=== PATIENT | male | born 1950 | race Caucasian/White ===

== ENCOUNTER 2024-05-16 11:40 | Outpatient (CLI) | payer MEDICARE, SELFPAY | END 2024-05-16 11:41 | disposition home or self-care (01) | PROVIDERS: Visit Provider Family Medicine | DX: D64.9 Anemia, unspecified (principal); E78.00 Pure hypercholesterolemia, unspecified; G62.9 Polyneuropathy, unspecified; I10 Essential (primary) hypertension; N40.1 Benign prostatic hyperplasia with lower urinary tract symptoms; R35.1 Nocturia; R79.89 Other specified abnormal findings of blood chemistry; E11.9 Type 2 diabetes mellitus without complications; R06.09 Other forms of dyspnea | CPT/HCPCS: 80053; 80061; 82043; 82570; 82607; 82728; 83540; 83550; 83880; 84270; 84402; 84403; G0103 ==

== ENCOUNTER 2024-05-16 13:35 | Emergency (ER) | payer MEDICARE, SELFPAY ==
[2024-05-16 13:37] VITALS: BP 123/67; PULSE 65; RESP 18; TEMP 35.9; O2SAT 95; BMI 25.8
--- NOTE | 2024-05-16 13:55 | ED.GENADULT ---
HPI - General Adult General Date Seen: 05/16/24 Chief complaint: Syncope/Fainted Stated complaint: Syncope Time Seen by Provider: 05/16/24 13:55 History of Present Illness HPI narrative: This is a pleasant 73-year-old gentleman brought to the ER today by EMS from the [facility]. A nurse from [facility] called when the patient was on the way. He had presented to the [facility] today to establish primary care (previously had lived in [facility] and had been in [place] over the winter. Now living in [place]). He had his 1st visit today and was getting some labs drawn. Apparently he was a difficult phlebotomy patient. After labs were drawn he had an episode of lightheadedness and then fainted. He apparently had some convulsion like activity. He was incontinent of urine. Upon awakening he seemed to either have a left facial tic or left facial droop. Clinic staff were concerned that he may have had a stroke so called 911. History from EMS is that by the time they arrived the patient has been alert and oriented. No focal deficits. [place] stroke scale is 0. Blood pressure and pulse have been normal. They were not able to establish an IV. He has no complaints. The patient was incontinent of urine at the clinic and wants to call his to ask her to bring him a pair of dry pants. History from the patient is that he has a history of anemia with a baseline hemoglobin 9-11. He has apparently had extensive workups including bone marrow biopsies and is not that thought to have any cancer or leukemia. Cause of his anemia is unclear. He has occasionally required transfusions in the past. He has a history of high blood pressure. He had an adverse reaction to some blood pressure meds last year (apparently 1 of them had a sulfa moiety in it and triggered a bad reaction requiring hospitalization and caused acute renal failure), he does have history of chronic renal disease and says his normal creatinine is around 1.85. During his episode of acute renal failure last year creatinine peaked around 4. He has had an extensive cardiac workup in the past and currently has an implanted residential monitor. He has never been found to have any arrhythmias or AFib. He has had episodes where he has had brief episodes of aphasia in the past that are not thought to be strokes or TIAs, based on workup with Neurology. He was feeling normally this morning. He had a small smoothly for breakfast but nothing else to eat or drink today. He went to the clinic this afternoon for his 1st check. He recalls starting to get lightheaded during the lab draw. He says he can not recall the phlebotomy has had a hard time getting his vein and he had to be poked to 6 times. He then recalls waking up on the floor. He has no other complaints. No headache. No chest pain. No palpitations. He was nauseous but is no longer nauseous. No abdominal pain. No back pain. 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 Labs drawn in clinic today included: WBC 7.5 Hemoglobin 10.9 Platelet 206 CMP vitamin B12, PSA, and terminal proBNP, testosterone levels are all pending. Glucose was 135. Related Data Home Medications ?Medication ?Instructions ?Recorded ?Confirmed Lactobacillus acidophilus 10 mg PO QDAY 04/06/24 05/16/24 amlodipine 10 mg tablet 10 mg PO DAILY 04/06/24 05/16/24 azelastine 137 mcg (0.1 %) nasal 2 spray intranasal QAM 04/06/24 05/16/24 spray coenzyme Q10 10 mg capsule 10 mg PO ONCE 04/06/24 05/16/24 cyanocobalamin (vitamin B-12) mcg PO 04/06/24 05/16/24 1,500 mcg chewable tablet fluticasone propionate 50 2 spray intranasal QPM 04/06/24 05/16/24 mcg/actuation nasal spray,suspension pantoprazole 40 mg tablet,delayed 40 mg PO DAILY 04/06/24 05/16/24 release rosuvastatin 10 mg tablet 10 mg PO DAILY 04/06/24 05/16/24 semaglutide 1 mg/dose (4 mg/3 mL) mg subcut 04/06/24 05/16/24 subcutaneous pen injector (Ozempic) sodium bicarbonate 650 mg tablet 650 mg PO QDAY PRN 04/06/24 05/16/24 tamsulosin 0.4 mg capsule 0.4 mg PO QDAY 04/06/24 05/16/24 lisinopril 10 mg tablet 10 mg PO QAM 05/16/24 05/16/24 Previous Rx's ?Medication ?Instructions ?Recorded amoxicillin 875 mg tablet 875 mg PO BID #20 tabs 05/16/24 Allergies Allergy/AdvReac Type Severity Reaction Status Date / Time Sulfa (Sulfonamide Allergy Severe Verified 05/16/24 11:15 Antibiotics) cat dander Allergy Mild Verified 05/16/24 11:15 [facility] Medical History (Updated 05/16/24 @ 12:11 by Mega Allen MD) Diabetes mellitus ?E11.9 - Type 2 diabetes mellitus without complications (ICD-10) Systolic murmur ?R01.1 - Cardiac murmur, unspecified (ICD-10) BPH associated with nocturia ?N40.1 - Benign prostatic hyperplasia with lower urinary tract symptoms (ICD-10) ?R35.1 - Nocturia (ICD-10) Low testosterone in male ?R79.89 - Other specified abnormal findings of blood chemistry (ICD-10) Neuropathy ?G62.9 - Polyneuropathy, unspecified (ICD-10) GERD (gastroesophageal reflux disease) ?K21.9 - Gastro-esophageal reflux disease without esophagitis (ICD-10) Hypercholesteremia ?E78.00 - Pure hypercholesterolemia, unspecified (ICD-10) HTN (hypertension) ?I10 - Essential (primary) hypertension (ICD-10) Anemia ?D64.9 - Anemia, unspecified (ICD-10) Social History Little interest or pleasure in doing things: not at all Feeling down, depressed, or hopeless: not at all Exam Narrative: Exam Narrative: Constitutional: Appears well-developed and well-nourished. Alert. Conversant. Non toxic. He had been incontinent of urine during the episode but declines offer to change into dry pants. He is waiting for his to arrive. HENT: Head: Atraumatic. Nose: Nose normal. Mouth/Throat: Oral mucosa is clear and moist. no trismus. Pharynx normal. Tonsils symmetric. No tonsillar enlargement, erythema, or exudate. Eyes: Conjunctivae normal. EOM normal. Pupils equal, round, and reactive to light. No scleral icterus. Neck: Normal range of motion. Neck supple. No tracheal deviation present. Cardiovascular: Normal rate, regular rhythm. No gallop. No friction rub. No murmur heard. Symmetric radial artery pulses Pulmonary/Chest: Effort normal. No stridor. No respiratory distress. No wheezes. No rales. No rhonchi . No tenderness. Abdominal: Soft. Bowel sounds normal. No distension. No mass. No tenderness. No rebound. No guarding. No CVA tenderness. Musculoskeletal: RUE: Normal range of motion. No tenderness. No deformity LUE: Normal range of motion. No tenderness. No deformity RLE: Normal range of motion. No edema. No tenderness. No deformity LLE: Normal range of motion. No edema. No tenderness. No deformity Lymph: No cervical adenopathy. Neurological: Mental status normal. Attention normal. Alert and oriented x3. GCS 15. Memory normal. Speech fluent. Cognition normal. Cranial Nerves intact II-XII except I did not formally test gag or visual acuity. Occasional left facial tic but I do not see any facial asymmetry. No droop. EOMI. Palate elevates symmetrically and tongue protrudes in the midline. Strength: 5/5 trapezius on the right and left 5/5 deltoid on the right and left 5/5 biceps on the right and left 5/5 triceps on the right and left 5/5 mechanical press operator on the right and left 5/5 thumb opposition on the right and left 5/5 finger abduction on the right and left 5/5 hip flexors (L3) on the right and left 5/5 quadriceps (L4) on the right and left 5/5 tibialis anterior on the right and left 5/5 EHL (L5) on the right and left 5/5 gastrocnemius (S1) on the right and left 5/5 hamstring on the right and left Sensation intact to light touch in both upper extremities (C4-T1) Sensation intact to light touch in Both lower extremities (L4-S1). Finger to nose and coordination normal. Gait normal. Skin: Skin is warm and dry. No rash noted. No pallor. Normal capillary refill. Psychiatric: Normal mood. Normal affect. Polite. He is a detailed historian. Const: Vital Signs, click to edit/add: Vital Signs - 24 hr 05/16/24 13:37 Temperature 96.6 F L Pulse Rate [Right Pulse Oximeter] 65 Respiratory Rate 18 Blood Pressure [Ri ght Upper Arm] 123/67 Pulse Oximetry 95 Oxygen Delivery Me thod Room Air Course Vital Signs Vital signs: Initial Vital Signs Temperature 96.6 F L 05/16/24 13:37 Temperature Source Temporal Artery Scan 05/16/24 13:37 Pulse Rate 65 05/16/24 13:37 Pulse Rhythm Regular 05/16/24 13:37 Respiratory Rate 18 05/16/24 13:37 Blood Pressure 123/67 05/16/24 13:37 Blood Pressure Mean 85 05/16/24 13:37 Blood Pressure Position Supine 05/16/24 13:37 Pulse Oximetry 95 05/16/24 13:37 Oxygen Delivery Method Room Air 05/16/24 13:37 Vital Signs Temperature 96.6 F L 05/16/24 13:37 Pulse Rate 65 05/16/24 13:37 Respiratory Rate 18 05/16/24 13:37 Blood Pressure 123/67 05/16/24 13:37 Pulse Oximetry 95 05/16/24 13:37 Oxygen Delivery Method Room Air 05/16/24 13:37 Temperature 96.6 F L 05/16/24 13:37 Pulse Rate 65 05/16/24 13:37 Respiratory Rate 18 05/16/24 13:37 Blood Pressure 123/67 05/16/24 13:37 Pulse Oximetry 95 05/16/24 13:37 Oxygen Delivery Method Room Air 05/16/24 13:37 Medical Decision Making MDM Narrative Medical decision making narrative: This patient presents for evaluation of a syncopal event that occurred right after he had a difficult phlebotomy and lab draw at the [facility].. A broad differential was considered. History provided suggests a benign cause of syncope. He actually had a similar episode of syncope about 4 months ago during a phlebotomy at a clinic in [place]. There was some concern by the clinic providers that he may have had a left facial droop . However, it turns out he has a chronic left facial tic. It does not sound like this was a true acute focal deficit. He had no focal neurologic deficits per EMS or here in the ER. No murmurs . Initial ECG shows normal sinus rhythm and no dysrhythmogenic abnormality such as WPW, prolonged QT, Brugada syndrome, and no ischemia. No symptoms/findings concerning for cardiac ischemia or ACS . No headache or other neurologic symptoms to suggest subarachnoid , stroke . He apparently had some short-lived convulsive episodes witnessed by staff but suspect this was convulsive syncope rather than seizure activity . no reported postictal phase. Patient has had a recent brain MRI in the past couple of years that showed no strokes or light mass lesions. night monitor while the patient here in the ER showed no dysrhythmia or ectopy. A broad differential diagnosis was considered including SVT, Atrial fibrillation, ventricular arrhythmia, drugs/medications, medication side effect, heart disease, PE, among others. Labs from clinic are pending. He does have some chronic renal disease. His doctor will follow up on his creatinine outpatient. He also has chronic anemia. Hemoglobin is 10.9 today which is in the upper and of his typical range (9-11). No symptoms of recent bleeding. Blood pressure normal. The workup and exam here in ED shows low risk for dangerous cause of the patient's syncope, and no risks factors to warrant admission. Clinical judgement suggests that supportive outpatient management is indicated. Recommend follow up with his new primary care provider in [place]. Questions answered and return precautions given Lab Data Labs: Lab Results 05/16/24 Range/Units 14:01 POC Troponin I 0.00 L (0.01-0.04) ng/ml ECG Data Attestation: I personally reviewed and interpreted this ECG as follows: Interpretation: Normal sinus rhythm. Computer indicates that this is a ?undetermined rhythm?, however he does have P waves visible in leads V1 and V2 indicating this is sinus rhythm. Rate: 61 DC: 200 by my count QRS axis: [] ST segment/T wave: No ST segment elevation or depression. Nonspecific T-wave flattening lead AVF, V4, V5, V6, V3. QTc: 400 Discharge Plan Discharge Prescriptions: No Action lisinopril 10 mg tablet 10 mg PO QAM amoxicillin 875 mg tablet 875 mg PO BID Qty: 20 0RF azelastine 137 mcg (0.1 %) aerosol,spray 2 spray intranasal QAM amlodipine 10 mg tablet 10 mg PO DAILY coenzyme Q10 10 mg capsule 10 mg PO ONCE cyanocobalamin (vitamin B-12) 1,500 mcg tablet,chewable PO fluticasone propionate 50 mcg/actuation spray,suspension 2 spray intranasal QPM Lactobacillus acidophilus Capsule 10 mg PO QDAY pantoprazole 40 mg tablet,delayed release (DR/EC) 40 mg PO DAILY rosuvastatin 10 mg tablet 10 mg PO DAILY Ozempic 1 mg/dose (4 mg/3 mL) pen injector subcut sodium bicarbonate 650 mg tablet 650 mg PO QDAY PRN tamsulosin 0.4 mg capsule 0.4 mg PO QDAY Follow Up/Referrals: Provider,Not a Local [Staff Physician] -
[2024-05-16] MEDS: 0.9 % SODIUM CHLORIDE 1000 ml 1,000 ML IV (14:45)
== END 2024-05-16 16:20 | disposition home or self-care (01) ==
LOC: ED 14:03
PROVIDERS: Emergency Provider Emergency Medicine; PCP Family Medicine
DX: R55 Syncope and collapse (principal)
CPT/HCPCS: 36415; 80048; 80053; 80061; 82607; 82728; 83540; 83550; 83880; 84443; 84484; 93005; 99283; G0103; J7030

== ENCOUNTER 2024-05-17 10:56 | Outpatient (CLI) | payer MEDICARE, SELFPAY | END 2024-05-17 10:57 | disposition home or self-care (01) | LOC: NFLDREF 05-19 10:43 | PROVIDERS: PCP Family Medicine; Referring Provider Family Medicine; Visit Provider Family Medicine | DX: E11.9 Type 2 diabetes mellitus without complications (principal) | CPT/HCPCS: 82043; 82570 ==

== ENCOUNTER 2024-05-25 07:49 | Outpatient (CLI) | payer MEDICARE, SELFPAY ==
--- NOTE | 2024-05-25 09:15 | CRLHL7_ITS ---
For Patients: As a result of the Cures Act, medical imaging exams and procedure reports are released immediately into your electronic medical record. You may view this report before your referring provider. If you have questions, please contact your health care provider. Indication: Lymphadenopathy Technique: Grayscale and color Doppler ultrasound of the left side of the neck performed. Comparison: None Findings: Normal left cervical lymph nodes are present with normal central fatty dwayne and normal internal vascularity. No cortical thickening. Lymph nodes measuring 1.2 x 0.5 x 1.2 cm and 1.2 x 0.3 x 0.8 cm. Impression: Normal left cervical lymph nodes. No suspicious findings. Dictated by Orion Arceo MD @ 05/26/2024 7:19:30 AM (Electronically Signed)
== END 2024-05-25 07:50 | disposition home or self-care (01) ==
PROVIDERS: PCP Family Medicine; Visit Provider Family Medicine
DX: R06.09 Other forms of dyspnea (principal); I51.7 Cardiomegaly; I35.0 Nonrheumatic aortic (valve) stenosis; R01.1 Cardiac murmur, unspecified; R59.1 Generalized enlarged lymph nodes
CPT/HCPCS: 76536; 93306

== ENCOUNTER 2025-04-03 08:13 | Outpatient (CLI) | payer MEDICARE, SELFPAY | END 2025-04-03 08:14 | disposition home or self-care (01) | LOC: WOUND 08:18 | PROVIDERS: PCP Family Medicine; Visit Provider Physician Assistant | DX: T81.31XA Disruption of external operation (surgical) wound, not elsewhere classified, initial encounter (principal); E11.9 Type 2 diabetes mellitus without complications | CPT/HCPCS: 1123F; 97597; 99203; G0463 ==

== ENCOUNTER 2025-04-17 09:58 | Outpatient (CLI) | payer MEDICARE, SELFPAY | END 2025-04-17 09:59 | disposition home or self-care (01) | LOC: WOUND 09:58 | PROVIDERS: PCP Family Medicine; Visit Provider Physician Assistant | DX: I73.9 Peripheral vascular disease, unspecified (principal); L97.312 Non-pressure chronic ulcer of right ankle with fat layer exposed; E11.9 Type 2 diabetes mellitus without complications | CPT/HCPCS: 97597 ==

== ENCOUNTER 2025-04-22 08:32 | Outpatient (CLI) | payer MEDICARE, SELFPAY ==
--- OUTSIDE RECORDS SUMMARY | 2025-03-31 | XMS_ITS | Encounter Summary ---
Author Organization [facility] Address [address] [place] [address] Care Team Providers Care Supervisor Mechanic Boilermaking Name Role Phone Alex Rao MD Primary Care Provider [phone] Alex Rao MD Unavailable [phone] Alex Rao MD Unavailable [phone] Russell Agosto MD Unavailable [phone] Doris Chaney [facility] Unavailable Canelo Kelley MD Unavailable Reason for Visit * CV Testing (Routine) - Closed Specialty Diagnoses / Procedures Referred By Contac t Referred To Contact Diagnoses Cryptogenic stroke (H) Procedures Cardiac Device Check - Remote (Standing ORD 5 count) Magdalena Fry MD Phone: tel: fax: Referral ID Status Reason Start Date Expiration Date Visits Re quested Visits Authorized [id number] Closed 12/21/2023 12/20/2024 5 5 Encounter Details Date Type Department Care Team (Latest Contact Info) Description 03/31/2025 Ancillary Procedure [facility] Heart [address] [place] [address] Magdalena Fry MD [address] [place] [address] Cryptogenic stroke (H) Social History Tobacco [...] AM CDT Legal Sex Male 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 Gender Identity Male 11/22/2018 10:40 AM PRODUCTION MAINTENANCE MECHANIC Sexual Orientation Straight 11/22/2018 10 :40 AM PRODUCTION MAINTENANCE MECHANIC Occupation Industry Job Start Date Job 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- [employer] Not on file Not on file Not on file documented as of this encounter Plan of Treatment Upcoming Encounters Date Type Department Care Team (Late st Contact Info) Description 06/30/2025 Ancillary Procedure [address] [address] Magdalena Fry MD [address] [place] [address] [id number] 10/02/2025 Ancillary Procedure [address] [phone] Magdalena Fry MD [address] [place] [address] documented as of this encounter Procedures Procedure Name Priority Date/Time Associated Diagnosis Comments REMOTE IMPLANTABLE LOOP RECORDER INTERROGATION 30 DAY Routine 03/31/2025 10:38 AM CDT Cryptogenic stroke (H) documented in this encounter Results * REMOTE IMPLANTABLE LOOP RECORDER INTERROGATION 30 DAY (03/31/2025 10:38 AM CDT) Date Time Interrogation Session [id number] [employer] Implantable Pulse Generator Cartridge Gauger Medtronic [employer] Implantable Pulse Generator Model LNQ22 LINQ II [employer] Implantable Pulse Generator Serial Number [id number] [employer] Type Interrogation Session Remote [facility] Clinic Name [facility] [employer] Implantable Pulse Generator Type Implantable Diagnostic Monitor [employer] Implantable Pulse Generator Implant Date 20220825 [employer] Battery Date Time of Measurements [employer] Atrial Tachy Statistic AT/AF [place] Percent 0 % [employer] Episode Statistic Recent [...] [employer]IC Episode Statistic Recent Date Time End [id number] [employer] Episode Statistic Recent Date Time Start [employer] Episode Statistic Recent Date Time End [id number] [employer] Episode Statistic Recent Date Time Start [employer] Episode Statistic Recent Date Time End [id number] [employer] Episode Statistic Recent Date Time Start [employer] Episode Statistic Recent Date Time End [id number] [employer] Anatomical Region Laterality Modality Other 03/31/2025 12:0 8 AM CDT Narrative 04/13/2025 10:45 PM CDT Remote loop recorder transmission received and reviewed. Device transmission sent per MD orders. Device: Medtronic LNQ22 LINQ II Normal Device Function Presenting EGM: NSR 68 bpm Patient Activated Episodes: 0 Tachy Episodes: 0 Pause Episodes: 0 Thomas Episodes: 0 AF Episodes: 0 AT/AF [place]: 0% Anticoagulant: None PVCs (% beats): 0% [...] documented as of this encounter Care Teams Supervisor Mechanic Boilermaking Relationship Specialty Start Date End Date Alex Rao MD PCP - General Internal Medicine 09/19/19 Alex Rao MD [address] [address] Assigned PCP 03/21/21 Alex Rao MD [address] [facility] [place] [address] Referring Physician Internal Medicine 04/02/22 Russell Agosto MD [address] [place] [address] [address] [place], [place] [address] Neurology 04/02/22 Doris Chaney, [facility] [address] [address] Pharmacist Pharmacist 07/21/22 [place] [address] [phone] Nephrology 05/14/23 documented as of this encounter
--- OUTSIDE RECORDS SUMMARY | 2025-04-25 01:38 | XMS_ITS | Encounter Summary ---
Author Organization [facility] Address [address] [place] [address] Care Team Providers Care Laborer Plumbing Name Role Phone Alex Rao MD Primary Care Provider [phone] Sharri Hdez MD Unavailable [phone] Alex Rao MD Unavailable [phone] Alex Rao MD Unavailable [phone] Russell Agosto MD Unavailable [phone] Magdalena Fry MD Unavailable Doris Chaney [facility] Unavailable [phone] Doris Chaney [facility] Unavailable [phone] Canelo Kelley MD Unavailable Encounter Details Date Type Department Care Team (Late st Contact Info) Description 09/08/2023 [facility] Medical Advice [facility] [address] [place] [address] Emilee Linares Social History Tobacco [...] AM CDT Legal Sex Male 4:10 AM CUSTOMER SUPPORT MANAGER Gender Identity Male 11/22/2018 10:40 AM CUSTOMER SUPPORT MANAGER Sexual Orientation Straight 11/22/2018 10 :40 AM CUSTOMER SUPPORT MANAGER Occupation Industry Job Start Date Job 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- [employer] Not on file Not on file Not on file documented as of this encounter Plan of Treatment Upcoming Encounters Date Type Department Care Team (Late st Contact Info) Description 06/30/2025 Ancillary Procedure [address] [phone] Magdalena rFy MD [address] [place] [address] 223585 10/02/2025 Ancillary Procedure [address] [phone] Magdalena Fry MD [address] [place] [address] [phone] documented as of this encounter Visit Diagnoses Not on filedocumented in this encounter Additional Health Concerns Assessment Noted Time PHQ-9 Depression Total Score: 9 06/10/20 22 11:44 AM CDT documented as of this encounter Care Teams Laborer Plumbing Relationship Specialty Start Date End Date Alex Rao MD PCP - General Internal Medicine 09/19/19 Sharri Hdez MD [address] [place] [address] 101 [place] [address] Assigned Endocrinology Provider 12/16/20 03/16/24 Alex Rao MD 6320 [place] [address] Assigned PCP 03/21/21 Alex Rao MD [address] [facility] [place] [address] Referring Physician Internal Medicine 04/02/22 Russell Agosto MD [address] 877345 Neurology 04/02/22 Magdalena Fry MD [address] 872185 Assigned Heart and Vascular Provider 04/26/22 02/15/24 Doris Chaney, [facility] [address] [phone] Pharmacist Pharmacist 07/21/22 [facility] [address] [phone] Assigned MTM Pharmacist 07/26/2202/14 [place] [address] [phone] Nephrology 05/14/23 documented as of this encounter
--- OUTSIDE RECORDS SUMMARY | 2025-04-25 01:38 | XMS_ITS | Encounter Summary ---
Author Organization [place] Address [address] [place] [address]. [place] [address] Care Team Providers Care Utility Inspector Name Role Phone Alex Rao MD Primary Care Provider [phone] Alex Rao MD Unavailable [phone] Alex Rao MD Unavailable [phone] Russell Agosto MD Unavailable [phone] Doris Chaney [facility] Unavailable Canelo Kelley MD Unavailable Encounter Details Date Type Department Care Team (Late st Contact Info) Description 03/22/2024 [facility] [place] Medical Advice [facility] [address] [address] Emilee Linares Social History Tobacco [...] AM CDT Legal Sex Male 4:10 AM TECHNICAL SPECIALIST CYTOGENETICS Gender Identity Male 11/22/2018 10:40 AM TECHNICAL SPECIALIST CYTOGENETICS Sexual Orientation Straight 11/22/2018 10 :40 AM TECHNICAL SPECIALIST CYTOGENETICS Occupation Industry Job Start Date Job 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- [employer] Not on file Not on file Not on file documented as of this encounter Plan of Treatment Upcoming Encounters Date Type Department Care Team (Late st Contact Info) Description 06/30/2025 Ancillary Procedure [address] [phone] Magdalena Fry MD [address] [place] [address] [phone] 10/02/2025 Ancillary Procedure [address] [phone] Magdalena Fry MD [address] [place] [address] [phone] documented as of this encounter Visit Diagnoses Not on filedocumented in this encounter Additional Health Concerns Assessment Noted Time PHQ-9 Depression Total Score: 9 06/10/20 22 11:44 AM CDT documented as of this encounter Care Teams Utility Inspector Relationship Specialty Start Date End Date Alex Rao MD PCP - General Internal Medicine 09/19/19 Alex Rao MD [address] [place] [address] Assigned PCP 03/21/21 Alex Rao MD [address] [place] [address] Referring Physician Internal Medicine 04/02/22 Russell Agosto MD [address] [place] [address] 262185 Neurology 04/02/22 Doris Chaney, [facility] [address] [address] Pharmacist Pharmacist 07/21/22 [place] [address] [phone] Nephrology 05/14/23 documented as of this encounter
--- OUTSIDE RECORDS SUMMARY | 2025-04-25 01:38 | XMS_ITS | Encounter Summary ---
Author Organization [place] Address [address] [place] [address] Care Team Providers Care Dryer Feeder Name Role Phone Alex Rao MD Primary Care Provider [phone] Sharri Hdez MD Unavailable [phone] Alex Rao MD Unavailable [phone] Alex Rao MD Unavailable [phone] Russell Agosto MD Unavailable [phone] Magdalena Fry MD Unavailable Doris Chaney [facility] Unavailable [phone] Doris Chaney [facility] Unavailable [phone] Canelo Kelley MD Unavailable Encounter Details Date Type Department Care Team (Late st Contact Info) Description 06/05/2023 [facility] [place] Medical Advice [facility] [address] 3rd [place] [address] Emilee Linares Social History Tobacco [...] AM CDT Legal Sex Male 4:10 AM PODIATRIC PHYSICIAN Gender Identity Male 11/22/2018 10:40 AM PODIATRIC PHYSICIAN Sexual Orientation Straight 11/22/2018 10 :40 AM PODIATRIC PHYSICIAN Occupation Industry Job Start Date Job End [...] st Contact Info) Description 06/30/2025 Ancillary Procedure [address] [address] Magdalena Fry MD [address] [place] [address] [phone] 10/02/2025 Ancillary Procedure [address] [address] Magdalena Fry MD [address] [place] [address] [phone] documented as of this encounter Visit Diagnoses Not on filedocumented in this encounter Additional Health Concerns Assessment Noted Time PHQ-9 Depression Total Score: 9 06/10/20 22 11:44 AM CDT documented as of this encounter Care Teams Dryer Feeder Relationship Specialty Start Date End Date Alex Rao MD PCP - General Internal Medicine 09/19/19 Sharri Hdez MD [address] [place] [address] Assigned Endocrinology Provider 12/16/20 03/16/24 Alex Rao MD [address] [place] [address] Assigned PCP 03/21/21 Alex Rao MD [address] [place] [address] Referring Physician Internal Medicine 04/02/22 Russell Agosto MD [address] [address] Neurology 04/02/22 Magdalena Fry MD [address] [address] Assigned Heart and Vascular Provider 04/26/22 02/15/24 Doris Chaney [facility] [address] [phone] Pharmacist Pharmacist 07/21/22 Doris Chaney [facility] [address] [phone] Assigned MTM Pharmacist 07/26/2202/14 [place] [address] [phone] Nephrology 05/14/23 documented as of this encounter
--- OUTSIDE RECORDS SUMMARY | 2025-04-25 01:38 | XMS_ITS | Encounter Summary ---
Author Organization [place] Address [address] [place] [address] Care Team Providers Care Auto Overhauler Name Role Phone Antonio Celeste MD Primary Care Provider U nealsharon Bill Bowens PA-C Primary Care Provider + Bill Bowens PA-C Unavailable [phone] Bill Bowens PA-C Unavailable [phone] Alex Rao MD Primary Care Provider [phone] Alex Rao MD Unavailable [phone] Beni Puga MD PhD Unavailable Alex Rao MD Unavailable [phone] Nate Leong MD Unavailable [phone] Sharri Hdez MD Unavailable [phone] Alex Rao MD Unavailable [phone] Alex Rao MD Unavailable [phone] Russell Agosto MD Unavailable [phone] Magdalena Fry MD Unavailable Doris Chaney [facility] Unavailable [phone] Doris Chaney [facility] Unavailable [phone] Canelo Kelley MD Unavailable Encounter Details Date Type Department Care Team ([facility] Contact Info) Description 10/02/2005 [facility] Medical Advice [facility] [address] [place] [address] Pillo Kaplan MD [address] , [id number] [place] [address] Social History Tobacco Use Types Packs/Day Years Used Date Smoking Tobacco: Former Cigarettes Q uit: 02/21/1974 Alcohol Use Standard Drinks/Week Comments Yes 0 (1 standard drink = 0.6 oz pur e alcohol) occasional Sex and Gender Information Value Date Recorded Sex Assigned at Male 07/18/2019 7:43 AM CDT Legal Sex Male 4:10 AM PAYROLL AND BENEFITS ANALYST Gender Identity Male 11/22/2018 10:40 AM PAYROLL AND BENEFITS ANALYST Sexual Orientation Straight 11/22/2018 10 :40 AM PAYROLL AND BENEFITS ANALYST Occupation Industry Job Start Date Job 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- [employer] Not on file Not on file Not on file documented as of this encounter Plan of Treatment Upcoming Encounters Date Type Department Care Team (Late Contact Info) Description 06/30/2025 Ancillary Procedure [address] [address] Magdalena Fry MD [address] [place] [address] [phone] 10/02/2025 Ancillary Procedure [address] [address] Magdalena Fry MD [address] [place] [address] [phone] documented as of this encounter Visit Diagnoses Not on filedocumented in this encounter Care Teams Auto Overhauler Relationship Specialty Start Date End Date Antonio Celeste MD NO INFO AVAILABLE 08/25/2022 PCP - General 03/24/03 02/19/15 Bill Bowens PA-C NO INFO AVAILABLE 08/25/2022 PCP - General Physician [place] Room Hand 02/20/15 09/18/19 Bill Bowens PA-C [address] [address] PCP - Assigned PCP 01/14/15 12/28/18 Alex Rao MD [address] [address] PCP - General Internal Medicine 09/19/19 Bill Bowens PA-C [address] [address] Assigned PCP 01/14/15 12/03/19 Alex Rao MD [address] [place] [address] Assigned PCP 12/04/19 02/18/20 Beni Puga MD PhD [address] [place] [address] Assigned PCP 02/19/20 02/25/20 Alex Rao MD [address] [place] [address] Assigned PCP 02/26/20 03/20/21 Nate Leong MD [address] [place] [address] Assigned Surgical Provider 08/17/20 11/07/22 Sharri Hdez MD 420 [facility] [address] [place], [place] 446745 Assigned Endocrinology Provider 12/16/20 03/16/24 Alex Rao MD [address] [facility] [place] [place] 1907[address] Assigned PCP 03/21/21 Alex Rao MD [address] [facility] [place] [place] 6[address] Referring Physician Internal Medicine 04/02/22 Russell Agosto MD 420 [facility] [address] [place], [place] 3775[address] Neurology 04/02/22 Magdalena Fry MD 420 [facility] [address] [place], [place] 356905 Assigned Heart and Vascular Provider 04/26/22 02/15/24 Doris Chaney [facility] [address] [phone] Pharmacist Pharmacist 07/21/22 Doris Chaney [facility] [address] [phone] Assigned MTM Pharmacist 07/26/2202/14 [place] [address] [phone] Nephrology 05/14/23 documented as of this encounter
--- OUTSIDE RECORDS SUMMARY | 2025-04-25 01:38 | XMS_ITS | Encounter Summary ---
Author Organization [place] Address [address] [place] [address]. [place] [address] Care Team Providers Care Principal Bioinformatics Specialist Name Role Phone Alex Rao MD Primary Care Provider [phone] Alex Rao MD Unavailable [phone] Alex Rao MD Unavailable [phone] Russell Agosto MD Unavailable [phone] [facility] Unavailable [phone] Canelo Kelley MD Unavailable Encounter Details Date Type Department Care Team (Late st Contact Info) Description 06/22/2024 [facility] [place] Medical Advice [facility] [address] [address] Emilee Linares Social History Tobacco [...] AM CDT Legal Sex Male 4:10 AM DIRECT ENTRY MIDWIFE Gender Identity Male 11/22/2018 10:40 AM DIRECT ENTRY MIDWIFE Sexual Orientation Straight 11/22/2018 10 :40 AM DIRECT ENTRY MIDWIFE Occupation Industry Job Start Date Job 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- [employer] Not on file Not on file Not on file documented as of this encounter Plan of Treatment Upcoming Encounters Date Type Department Care Team (Late st Contact Info) Description 06/30/2025 Ancillary Procedure [address] [phone] Magdalena Fry MD [address] [place] [address] [phone] 10/02/2025 Ancillary Procedure [address] [phone] Magdalena Fry MD [address] [place] [address] [phone] documented as of this encounter Visit Diagnoses Not on filedocumented in this encounter Additional Health Concerns Assessment Noted Time PHQ-9 Depression Total Score: 9 06/10/20 22 11:44 AM CDT documented as of this encounter Care Teams Principal Bioinformatics Specialist Relationship Specialty Start Date End Date Alex Rao MD PCP - General Internal Medicine 09/19/19 Alex Rao MD [address] [place] [address] Assigned PCP 03/21/21 Alex Rao MD [address] [place] [address] Referring Physician Internal Medicine 04/02/22 Russell Agosto MD [address] [place] [address] 163745 Neurology 04/02/22 Doris Chaney, [facility] [address] [phone] Pharmacist Pharmacist 07/21/22 [place] [address] [phone] Nephrology 05/14/23 documented as of this encounter
--- OUTSIDE RECORDS SUMMARY | 2025-04-25 01:38 | XMS_ITS | Encounter Summary ---
Author Organization [place] Address [address] [place] [address] Care Team Providers Care Driver Salesman Name Role Phone Alex Rao MD Primary Care Provider [phone] Sharri Hdez MD Unavailable [phone] Alex Rao MD Unavailable [phone] Alex Rao MD Unavailable [phone] Russell Agosto MD Unavailable [phone] Magdalena Fry MD Unavailable Doris Chaney [facility] Unavailable Doris Chaney [facility] Unavailable Canelo Kelley MD Unavailable Reason for Visit * Reason Comments Medication Refill Encounter Details Date Type Department Care Team (Late st Contact Info) Description 12/20/[address] [address] Alex Rao MD [address] [place] [address] Medication Refill Social History Tobacco Use [...] AM CDT Legal Sex Male 4:10 AM TAKER AWAY Gender Identity Male 11/22/2018 10:40 AM TAKER AWAY Sexual Orientation Straight 11/22/2018 10 :40 AM TAKER AWAY Occupation Industry Job Start Date Job 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- [employer] Not on file Not on file Not on file documented as of this encounter Plan of Treatment Upcoming Encounters Date Type Department Care Team (Late st Contact Info) Description 06/30/2025 Ancillary Procedure [address] [address] Magdalena Fry MD [address] [place] [address] 10/02/2025 Ancillary Procedure [address] [address] Magdalena Fry MD [address] [place] [address] [phone] documented as of this encounter Visit Diagnoses Diagnosis Essential hypertension with goal blood pressure less than 140/90 documented in this encounter Additional Health Concerns Assessment Noted Time PHQ-9 Depression Total Score: 9 06/10/20 22 11:44 AM CDT documented as of this encounter Care Teams Driver Salesman Relationship Specialty Start Date End Date Alex Rao MD PCP - General Internal Medicine 09/19/19 Sharri Hdez MD [address] [place] [address] 566385 Assigned Endocrinology Provider 12/16/20 03/16/24 Alex Rao MD [address] [place] [address] Assigned PCP 03/21/21 Alex Rao MD [address] [place] [address] Referring Physician Internal Medicine 04/02/22 Russell Agosto MD [address] 081325 Neurology 04/02/22 Magdalena Fry MD [address] 970175 Assigned Heart and Vascular Provider 04/26/22 02/15/24 [facility] [address] [phone] Pharmacist Pharmacist 07/21/22 [facility] [address] [phone] Assigned MTM Pharmacist 07/26/2202/14 [place] [address] [phone] Nephrology 05/14/23 documented as of this encounter
--- OUTSIDE RECORDS SUMMARY | 2025-04-25 01:38 | XMS_ITS | Clinical Summary ---
Author Organization [place] Address [address] [place] [address] Care Team Providers Care Atomic Process Engineer Name Role Phone Luis Rao MD Primary Care Provider Luis Rao MD Unavailable [phone] Luis Rao MD Unavailable Russell Agosto MD Unavailable [phone] Doris Chaney [facility] Unavailable [phone] Canelo Kelley MD Unavailable Allergies Active Allergy Reactions Criticality Noted Date Comments Animal Dander Swelling,Difficulty breathing 04/18/2011 Cat Dander Swelling,Cough 04/18/2011 Cat and Dog dander Sucrose Low 12/10/2020 Patient states he experiences a dry, scratchy throat Sulfa Antibiotics Rash Medium 02/22/2004 Medications Continuous Blood Gluc Fisheries Technician (FREESTYLE CHERRY 14 DAY READER) DEVIIndications: Controlled [...] diabetes mellitus wit h hyperglycemia, unspecified whether parts counterman insulin use 02/13/2022 06/12/2022 Pain of right lower leg 05/15/202107/27 Retroperitoneal bleed 09/16/20192021 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/19/20 19 Overview (08/05/2019): Added automatically from request for surgery [id number] Testicular mass 08/05/2019 09/19/2019 Overview (08/05/2019): Added automatically from request for surgery [id number] Type 2 diabetes mellitus, controlled 08/20/2015 06/22/2020 [...] Team Description 03/31/2025 Travel 03/31/2025 Ancillary Procedure [address] [place] [address] Magdalena Fry MD Cryptogenic stroke (H) [...] AM CDT Legal Sex Male 4:10 AM BEAUTY PARLOR CLEANER Gender Identity Male 11/22/2018 10:40 AM BEAUTY PARLOR CLEANER Sexual Orientation Straight 11/22/2018 10 :40 AM BEAUTY PARLOR CLEANER Occupation Industry Job Start Date Job [...] st Contact Info) Description 06/30/2025 Ancillary Procedure [address] [address] Magdalena Fry MD [address] [place] [address] [phone] 10/02/2025 Ancillary Procedure [address] [place] [address] Magdalena Fry MD [address] [place] [address] [phone] Health Maintenance Due Date Last Done Comments [...] Additional history exists ALK PHOS Completed 2023, 08/10/2022, 03/26/2023, Additional history exists HEPATITIS C SCREENING [...] this topic Medical Devices Implanted Type Area Tool And Die Technician Device Identifier Shelf Expiration Date Model / Serial / Lot Monitor Cardiac Linq Ii Insertable Lnq22 - [id number] Implanted:Qty: 1 on 08/25/2022 at [facility] Cardiac device (Non-Pacema ker) [employer] 11/06/2023 LNQ22 / [id number] / [id number] Eye Imp Iol Saul Pcl Tecnis Zcb00 23.0 Implanted:Qty: 1 on 09/29/2016 by Asif Mae MD at [facility] Lens/Eye Implant Right: Eye [employer] 06/02/2020 ZCB00 23.0 / [id number] / Eye Imp Iol Saul Pcl Technis Zcb00 21.5 Implanted:Qty: 1 on 05/08/2011 at [facility] Left: Eye 12/23/2013 ZCB00 21.5 / [id number] / Procedures Procedure Name Priority Date/Time Associated Diagnosis Comments MICROBIOLOGY ISOLATE REFERRAL Routine 04/22/2025 10:15 AM CDT REMOTE IMPLANTABLE LOOP RECORDER INTERROGATION 30 DAY [...] 10:38 AM CDT) Date Time Interrogation Session [employer] Implantable Pulse Generator Tool And Die Technician Medtronic [employer] Implantable Pulse Generator Model LNQ22 LINQ II [employer] Implantable Pulse Generator Serial Number [id number] [employer] Type Interrogation Session Remote [employer] Clinic Name [facility] [employer] Implantable Pulse Generator Type Implantable Diagnostic Monitor [employer] Implantable Pulse Generator Implant Date [id number] [employer] Battery Date Time of Measurements [employer] Atrial Tachy Statistic AT/AF [place] Percent 0 % [employer] Episode Statistic Recent [...] Chris Episodes: 0 AF Episodes: 0 AT/AF [place]: 0% Anticoagulant: None PVCs (% beats): 0% [...] MD LAB - BLOOD ORDERABLES Final Result Performing Organization Address City/State/[facility] Co de Phone Number [facility] [place] [facility] [address] [facility][1], Room [address] [phone], [facility] [phone] * (ABNORMAL) Hemoglobin (06/18/2023 11:04 AM CDT) Hemoglobin 9.2(L) 13.3 - 17.7 g/dL 06/18/2023 4:42 PM CDT [facility] LAB[facility]ATORY Blood BLOOD SPECIMEN / Unknown Venipuncture / Unknown 06/18/2023 11:04 AM CDT 06/18/2023 4:28 PM CDT Paulo Rust MD LAB - BLOOD ORDERABLES Final Result AL LABORATORY [facility] [address] [facility], [address] [place] [address], [facility] [phone] * (ABNORMAL) UA with Microscopic (06/05/2023 1:17 AM CDT) Color Urine Straw Colorless, Straw, Light Yellow, Yellow 06/05/2023 1:48 AM CDT LABORATORY Appearance Urine Clear Clear 06/05/20 1:48 AM CDT LABORATORY Glucose Urine 100(A) Negative mg/dL 06/05/2023 1:48 AM CDT LABORATORY Bilirubin Urine Negative Negative 1:48 AM CDT LABORATORY Ketones Urine Negative Negative mg/dL 06/05/2023 1:48 AM CDT LABORATORY Specific [place] Urine 1.011 1.003 - 1.035 06/05/2023 1:48 [...] LAB - URINE ORDERABLES Final Result LABORATORY [facility] [address], [address] [place] [address], [facility] [phone] * Hepatits C antibody (05/28/2023 6:46 PM CDT) [facility] Hepatitis C Antibody Nonreactive Nonreactive 05/29/2023 11:39 AM CDT SPECIALTY CORE/PROT/EN DO Blood BLOOD SPECIMEN / Unknown Venipuncture / Unknown 05/28/2023 6:46 PM CDT 05/28/2023 6:50 PM CDT Narrative SPECIALTY CORE/PROT/ENDO - 05/29/2023 11:39 AM CDT Assay performance characteristics have not been established for newborns, infants, and children. Kennedy Mcnulty MD LAB - BLOOD ORDERABLES Final Result SPECIALTY CORE/PROT/ENDO Specialty Core/Prot/Endo [address] [facility] [address], [address] [place] [address], [facility] [phone] * (ABNORMAL) Comprehensive metabolic panel (2023 2:39 PM CDT) Pathologist [facility] Sodium 139 136 - 145 mmol/L 2023 [...] LAB - BLOOD ORDERABLES Final Result LABORATORY [facility] Lab [address] floor, [address] [place] [address], [place] [phone] * COLONOSCOPY (04/22/2023 12:42 PM CDT) [facility] COLONOS[facility] [address] [place], [place] [address] [place] [address] [phone] Endoscopy Department Patient Name: Neo Solis Procedure Date: 04/22/2023 12:42 PM Date of : 1950 Admit Type: Outpatient Age: 72 Room: [facility] PROCEDURE ROOM 02 Gender: Male Note Status: [...] bowel preparation was evaluated using the BBPS (Lincoln Bowel Preparation Scale) with scores of: Right [...] of the blebs. - Conside referral to [facility] - Return to referring physician. Electronically Signed [...] LAB - STOOLS ORDERABLES Final R esult U LAB[facility]ORY [facility] [place] [facility] [address] [facility][1], Room [address] [place] [address], [facility] [phone] * (ABNORMAL) Lipid panel reflex to direct [...] Greater than or equal to 220 mg/dL Luis Rao MD LAB - BLOOD ORDERABLES Final Re sult [facility] [place] [facility] [address] [facility][1], Room [address] [place] [address], [place] [phone] * (ABNORMAL) HEMOGLOBIN A1C (03/26/2023 10:53 AM [...] LAB - BLOOD ORDERABLES Final Re sult [facility] Lab [address] [facility] (no room number, 1st floor of clinic) [place] [address], [place] [phone] * Albumin Random Urine Quantitative with Creat [...] control, and institution of therapy with an ybqislebdat-khwnlmjpfo-azysna (DIEGO) inhibitor (if the patient can tolerate it). Urine URINE SPECIMEN / Unknown Non-blood Collection / Unknown 03/26/2023 10:34 AM CDT 03/26/2023 10:34 AM CDT us Luis Rao MD LAB - URINE ORDERABLES Final Re sult LABORATORY [facility] [place] [facility] [address] [facility][1], [address] [address], [facility] [phone] * EYE EXAM - HIM SCAN (03/26/2023 12:00 AM CDT) RETINOPATHY NEGATIVE 03/26/2023 us Provider Outside OTHER Edited Result - Final from Last 3 Months or Most Recently Relevant to Health Maintenance [place] [address] [place] [address] MEDICARE ADVANTAGE MEDICARE ADVANTAGE * Guarantor: Neo Solis Account Type Relation to Patient Date of Phone Billing Address Medication Therapy Self [address] [place] [address] MEDICARE ADVANTAGE Advance Directives For more information, please contact: [phone] * Full Code (Latest Code Status on [...] Comments Code status determined by: Discussion with carlos nt/legal decision maker * No Code Status Date Activated Date Inactivated Comments 02/21/2004 9:42 AM 02/21/2004 9:42 AM Care Teams Atomic Process Engineer Relationship Specialty Start Date End Date Luis Rao MD PCP - General Internal Medicine 09/19/19 Luis Rao MD [address] [place], [place] [phone] Assigned PCP 03/21/21 Luis Rao MD [address] [facility] [phone] Referring Physician Internal Medicine 04/02/22 Russell Agosto MD [address] [place] [address] 486 [place] [address] Neurology 04/02/22 Doris Chaney, [facility] [address] [phone] Pharmacist Pharmacist 07/21/22 [place] [address] [phone] Nephrology 05/14/23
--- OUTSIDE RECORDS SUMMARY | 2025-04-25 01:38 | XMS_ITS | Encounter Summary ---
Author Organization [facility] Address [address] [place] [address] Care Team Providers Care Printing And Stamping Supervisor Name Role Phone Alex Rao MD Primary Care Provider [phone] Sharri Hdez MD Unavailable [phone] Alex Rao MD Unavailable [phone] Alex Rao MD Unavailable [phone] Russell Agosto MD Unavailable [phone] Magdalena Fry MD Unavailable Doris Chaney [facility] Unavailable [phone] Doris Chaney [facility] Unavailable [phone] Canelo Kelley MD Unavailable Encounter Details Date Type Department Care Team (Late st Contact Info) Description 12/07/2023 [facility] [address] 3rd [place] [address] Taiwo Yañez Social History Tobacco [...] CDT Legal Sex Male 4:10 AM EXPERIMENTAL AIRCRAFT MECHANIC Gender Identity Male 11/22/2018 10:40 AM EXPERIMENTAL AIRCRAFT MECHANIC Sexual Orientation Straight 11/22/2018 10 :40 AM EXPERIMENTAL AIRCRAFT MECHANIC Occupation Industry Job 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 Date Job 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- [employer] Not on file Not on file Not on file documented as of this encounter Plan of Treatment Upcoming Encounters Date Type Department Care Team (Late st Contact Info) Description 06/30/2025 Ancillary Procedure [address] [phone] Magdalena Fry MD [address] [place] [address] 215815 10/02/2025 Ancillary Procedure [address] [phone] Magdalena Fry MD [address] [place] [address] 082115 documented as of this encounter Visit Diagnoses Not on filedocumented in this encounter Additional Health Concerns Assessment Noted Time PHQ-9 Depression Total Score: 9 06/10/20 22 11:44 AM CDT documented as of this encounter Care Teams Printing And Stamping Supervisor Relationship Specialty Start Date End Date Alex Rao MD PCP - General Internal Medicine 09/19/19 Sharri Hdez MD [address] [place] [address] 101 [place], [place] 321915 Assigned Endocrinology Provider 12/16/20 03/16/24 Alex Rao MD [address] [place] [address] Assigned PCP 03/21/21 Alex Rao MD 6320 [facility] [place] [address] Referring Physician Internal Medicine 04/02/22 Russell Agosto MD [address] [address] Neurology 04/02/22 Magdalena Fry MD [address] 496155 Assigned Heart and Vascular Provider 04/26/22 02/15/24 Doris Chaney, [facility] [address] [phone] Pharmacist Pharmacist 07/21/22 [facility] [address] [phone] Assigned MTM Pharmacist 07/26/2202/14 [place] [address] [phone] Nephrology 05/14/23 documented as of this encounter
--- OUTSIDE RECORDS SUMMARY | 2025-04-25 01:39 | XMS_ITS | Encounter Summary ---
Author Organization [facility] Address [address] [place] [address] Care Team Providers Care Regional Sales Trainer Name Role Phone Alex Rao MD Primary Care Provider [phone] Nate Leong MD Unavailable [phone] Sharri Hdez MD Unavailable [phone] Alex Rao MD Unavailable [phone] Alex Rao MD Unavailable [phone] Russell Agosto MD Unavailable [phone] Magdalena Fry MD Unavailable Doris hCaney [facility] Unavailable Doris Chaney [facility] Unavailable [phone] Canelo Kelley MD Unavailable Encounter Details Date Type Department Care Team (Late st Contact Info) Description 03/31/2022 Clint Avila [address] [address] Alex Rao MD [address] [place] [address] Social History Tobacco Use Types Packs/Day [...] AM CDT Legal Sex Male 4:10 AM RELIABILITY TECHNOLOGIST Gender Identity Male 11/22/2018 10:40 AM RELIABILITY TECHNOLOGIST Sexual Orientation Straight 11/22/2018 10 :40 AM RELIABILITY TECHNOLOGIST Occupation Industry Job Start Date Job End [...] Contact Info) Description 06/30/2025 Ancillary Procedure [address] [address] Magdalena Fry MD [address] [place] [address] 287375 10/02/2025 Ancillary Procedure [address] [address] Magdalena Fry MD [address] [place] [address] documented as of this encounter Visit Diagnoses Diagnosis Hyperlipidemia LDL goal <100 Other and unspecified hyperlipidemia documented in this encounter Care Teams Regional Sales Trainer Relationship Specialty Start Date End Date Alex Rao MD PCP - General Internal Medicine 09/19/19 Nate Leong MD [address] 570385 Assigned Surgical Provider 08/17/20 11/07/22 Sharri Hdez MD [address] [address] Assigned Endocrinology Provider 12/16/20 03/16/24 Alex Rao MD 6320 [place], [place] 860961 Assigned PCP 03/21/21 Alex Rao MD 6320 [place], [place] 971091 Referring Physician Internal Medicine 04/02/22 Russell Agosto MD [address] 169695 Neurology 04/02/22 Magdalena Fry MD [address] 998615 Assigned Heart and Vascular Provider 04/26/22 02/15/24 Doris Chaney [facility] [address] [address] Pharmacist Pharmacist 07/21/22 Doris Chaney [facility] [address] [address] Assigned MTM Pharmacist 07/26/2202/14 [place] [address] [phone] Nephrology 05/14/23 documented as of this encounter
--- OUTSIDE RECORDS SUMMARY | 2025-04-25 01:39 | XMS_ITS | Encounter Summary ---
Author Organization [facility] Address [address] [place] [address] Care Team Providers Care Meat Boner And Slicer Name Role Phone Alex Rao MD Primary Care Provider [phone] Nate Leong MD Unavailable [phone] Sharri Hdez MD Unavailable [phone] Alex Rao MD Unavailable [phone] Alex Rao MD Unavailable [phone] Russell Agosto MD Unavailable [phone] Magdalena Fry MD Unavailable Doris Chaney [facility] Unavailable Doris Chaney [facility] Unavailable Canelo Kelley MD Unavailable Encounter Details Date Type Department Care Team (Late st Contact Info) Description 10/07/2021 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- [employer] Not on file Not on file Not on file documented as of this encounter Plan of Treatment Upcoming Encounters Date Type Department Care Team (Late st Contact Info) Description 06/30/2025 Ancillary Procedure [address] [address] Magdalena Fry MD [address] [place] [address] 10/02/2025 Ancillary Procedure [address] [address] Magdalena Fry MD [address] [place] [address] documented as of this encounter Visit Diagnoses Not on filedocumented in this encounter Care Teams Meat Boner And Slicer Relationship Specialty Start Date End Date Alex Rao MD PCP - General Internal Medicine 09/19/19 Nate Leong MD [address] 583615 Assigned Surgical Provider 08/17/20 11/07/22 Sharri Hdez MD [address] [place] [address] Assigned Endocrinology Provider 12/16/20 03/16/24 Alex Rao MD [address] 645381 Assigned PCP 03/21/21 Alex Rao MD [address] 989931 Referring Physician Internal Medicine 04/02/22 Russell Agosto MD 420 [facility] [address] 504195 Neurology 04/02/22 Magdalena Fry MD [address] 522745 Assigned Heart and Vascular Provider 04/26/22 02/15/24 Doris Chaney [facility] [address] [address] Pharmacist Pharmacist 07/21/22 Doris Chaney [facility] [address] [phone] Assigned MTM Pharmacist 07/26/2202/14 [place] [address] [address] Nephrology 05/14/23 documented as of this encounter
--- OUTSIDE RECORDS SUMMARY | 2025-04-25 01:39 | XMS_ITS | Encounter Summary ---
Author Organization [facility] Address [facility]ly [facility] [place] [address] Care Team Providers Care Java Jsf Developer Name Role Phone Alex Rao MD Primary Care Provider [phone] Nate Leong MD Unavailable [phone] Sharri dHez MD Unavailable Alex Rao MD Unavailable [phone] Alex Rao MD Unavailable [phone] Russell Agosto MD Unavailable [phone] Magdalena Fry MD Unavailable Doris Chaney [facility] Unavailable Doris Chaney [facility] Unavailable Canelo Kelley MD Unavailable Encounter Details Date Type Department Care Team (Latest Contact Info) Description 01/28/2022 [facility] [address] [address] Orion Stark, [address] [address] Lumbar radiculopathy (Primary Dx) Social [...] CDT Legal Sex Male 4:10 AM SAFETY ASSISTANT Gender Identity Male 11/22/2018 10:40 AM SAFETY ASSISTANT Sexual Orientation Straight 11/22/2018 10 :40 AM SAFETY ASSISTANT Occupation Industry Job Start Date Job 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 He does not want to wait till end of february for epidural here in [place]. He requested his order be sent to [facility] radiology. Order was faxed. Rehana guardado Procedure Material Reprocessing Associate Orthopedics, Podiatry, Sports Medicine, ENT/Eye Specialties [facility] [phone] documented in this encounter Plan of Treatment Upcoming Encounters Date Type Department Care Team (Late st Contact Info) Description 06/30/2025 Ancillary Procedure [address] [address] Magdalena Fry MD [address] [place] [address] [phone] 10/02/2025 Ancillary Procedure [address] [address] Magdalena Fry MD [address] [place] [address] 249945 documented as of this encounter Visit Diagnoses Diagnosis Lumbar radiculopathy- Primary Thoracic or lumbosacral neuritis or radiculitis, unspecified documented in this encounter Care Teams Java Jsf Developer Relationship Specialty Start Date End Date Alex Rao MD PCP - General Internal Medicine 09/19/19 Nate Leong MD [address] 956315 Assigned Surgical Provider 08/17/20 11/07/22 Sharri Hdez MD [address] 512035 Assigned Endocrinology Provider 12/16/20 03/16/24 Alex Rao MD [address] [place], [place] 274981 Assigned PCP 03/21/21 Alex Rao MD [address] [place], [place] 426641 Referring Physician Internal Medicine 04/02/22 Russell Agosto MD 420 [facility] [address] [place], [place] 282915 Neurology 04/02/22 Magdalena Fry MD 420 [facility] 486 [place], [place] 961405 Assigned Heart and Vascular Provider 04/26/22 02/15/24 Doris Chaney [facility] [address] [place] [phone] Pharmacist Pharmacist 07/21/22 Doris Chaney, [facility] [address] [address] Assigned MTM Pharmacist 07/26/2202/14 [place] [address] [phone] Nephrology 05/14/23 documented as of this encounter
--- OUTSIDE RECORDS SUMMARY | 2025-04-25 01:39 | XMS_ITS | Encounter Summary ---
Author Organization [facility] Address [address] [place] [address] Care Team Providers Care Change Manager Name Role Phone Alex Rao MD Primary Care Provider [phone] Nate Leong MD Unavailable [phone] Sharri Hdez MD Unavailable Alex Rao MD Unavailable [phone] Alex Rao MD Unavailable [phone] Russell Agosto MD Unavailable [phone] Magdalena Fry MD Unavailable Doris Chaney [facility] Unavailable Doris Chaney [facility] Unavailable Canelo Kelley MD Unavailable Encounter Details Date Type Department Care Team (Late st Contact Info) Description 03/26/2021 [facility] [place] [address] [place] [address] Sharri Hdez MD [address] [place] [address] 101 [place] [address] Social History Tobacco Use Types [...] AM CDT Legal Sex Male 4:10 AM CELL ASSEMBLY PINNER Gender Identity Male 11/22/2018 10:40 AM CELL ASSEMBLY PINNER Sexual Orientation Straight 11/22/2018 10 :40 AM CELL ASSEMBLY PINNER Occupation Industry Job Start Date Job End [...] Contact Info) Description 06/30/2025 Ancillary Procedure [address] [address] Magdalena Fry MD [address] [place] [address] 10/02/2025 Ancillary Procedure [address] [address] Magdalena Fry MD [address] [place] [address] documented as of this encounter Visit Diagnoses Not on filedocumented in this encounter Care Teams Change Manager Relationship Specialty Start Date End Date lAex Rao MD PCP - General Internal Medicine 09/19/19 Nate Leong MD [address] [place] [address] [address] [address] Assigned Surgical Provider 08/17/20 11/07/22 Sharri Hdez MD [address] [facility] [address] [place], [place] 886175 Assigned Endocrinology Provider 12/16/20 03/16/24 Alex Rao MD [address] [place], [place] 164061 Assigned PCP 03/21/21 Alex Rao MD [address] [place] 667341 Referring Physician Internal Medicine 04/02/22 Russell Agosto MD 420 [facility] [address] [place], [place] 191605 Neurology 04/02/22 Magdalena Fry MD 420 [facility] [address] [place], [place] 121985 Assigned Heart and Vascular Provider 04/26/22 02/15/24 Doris Chaney [facility] [address] [address] Pharmacist Pharmacist 07/21/22 Doris Chaney [facility] [address] [address] Assigned MTM Pharmacist 07/26/2202/14 [place] [address] [address] Nephrology 05/14/23 documented as of this encounter
--- OUTSIDE RECORDS SUMMARY | 2025-04-25 01:39 | XMS_ITS | Encounter Summary ---
Author Organization [facility] Address [address] [place] [address] Care Team Providers Care Diplomatic Interpreter/Translator Name Role Phone Alex Rao MD Primary Care Provider [phone] Nate Leong MD Unavailable [phone] Sharri Hdez MD Unavailable Alex Rao MD Unavailable Alex Rao MD Unavailable [phone] Russell Agosto MD Unavailable [phone] Magdalena Fry MD Unavailable Doris Chaney [facility] Unavailable Doris Chaney [facility] Unavailable Canelo Kelley MD Unavailable Encounter Details Date Type Department Care Team (Late st Contact Info) Description 07/31/2021 [facility] [address] [place] [address] Sharri Hdez MD [address] [place] [address] 101 [place] [address] Social History Tobacco Use Types [...] AM CDT Legal Sex Male 4:10 AM HELMINTHOLOGY TEACHER Gender Identity Male 11/22/2018 10:40 AM HELMINTHOLOGY TEACHER Sexual Orientation Straight 11/22/2018 10 :40 AM HELMINTHOLOGY TEACHER Occupation Industry Job Start Date Job 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- [employer] Not on file Not on file Not on file documented as of this encounter Plan of Treatment Upcoming Encounters Date Type Department Care Team (Late st Contact Info) Description 06/30/2025 Ancillary Procedure [address] [address] Magdalena Fry MD [address] [place] [address] 10/02/2025 Ancillary Procedure [address] [address] Magdalena Fry MD [address] [place] [address] documented as of this encounter Visit Diagnoses Not on filedocumented in this encounter Care Teams Diplomatic Interpreter/Translator Relationship Specialty Start Date End Date Alex Rao MD PCP - General Internal Medicine 09/19/19 Nate Leong MD [address] 275845 Assigned Surgical Provider 08/17/20 11/07/22 Sharri Hdez MD [address] [place] [address] Assigned Endocrinology Provider 12/16/20 03/16/24 Alex Rao MD [address] 978161 Assigned PCP 03/21/21 Alex Rao MD [address] 271631 Referring Physician Internal Medicine 04/02/22 Russell Agosto MD 420 [facility] [address] 166085 Neurology 04/02/22 Magdalena Fry MD [address] 481775 Assigned Heart and Vascular Provider 04/26/22 02/15/24 Doris Chaney [facility] [address] [address] Pharmacist Pharmacist 07/21/22 Doris Chaney [facility] [address] [phone] Assigned MTM Pharmacist 07/26/2202/14 [place] [address] [address] Nephrology 05/14/23 documented as of this encounter
--- OUTSIDE RECORDS SUMMARY | 2025-04-25 01:39 | XMS_ITS | Clinical Summary ---
Author Organization [facility] Address [address] [place] [address] Care Team Providers Care Long Lines Operator Name Role Phone John Wilcox MD Unavailable [phone] Mega Allen Primary Care Provider [phone] Allergies Active Allergy Reactions Criticality Noted Date [...] mcg/actuation (ASTELIN) 137 mcg (0.1 %) Nasal [place] nasal spray Instill 2 sprays into EACH [...] Comments Blood Pressure 126/68 12/28/2024 1:45 PM SQE Pulse 82 12/28/2024 1:45 PM SQE Temperature 36.3 C (97.3 F) 11/22/2024 9:40 AM SQE Respiratory Rate 18 11/22/2024 10:30 AM SQE Oxygen Saturation 98% 12/28/2024 1:45 PM SQE Inhaled Oxygen Concentration - - Weight 114.3 kg (252 lb) 12/28/2024 1:45 PM SQE Height 182.9 cm (6') 12/28/2024 1:45 PM SQE Body Mass Index 34.18 12/28/2024 1:45 PM SQE Plan of Treatment Health Maintenance Due Date [...] 04/09/2022, 10/26/2021, Additional history exists Influenza Vaccine (#1) 2025 , 10/26/2022, 07/16/2022, Additional history exists Yearly Review [...] this topic Medical Devices Implanted Type Area Fruit Grading Supervisor Device Identifier Shelf Expiration Date Model / Serial / Lot Fm Hd [facility] 36/+1.5 1365-36-310 - [id number] Implanted:Qt y: 1 on 06/18/2022 by Salvatore Blanton MD at [facility] Head Right: Hip [employer] Neymar [id number] 0 / / Mesh Vntrlght St W Echo Ps 6x8 - [id number] Implanted:Qt y: 1 on 02/23/2013 by Dallas Dejesus MD at [facility] Mesh/pat ch N/A: Abdomen [employer] 12/24/2014 [id number] / / [id number] Aniwa H J&J Elmntr 1246-03-000 - [id number] Implanted:Qt y: 1 on 06/18/2022 by Salvatore Blanton MD at [facility] Mesh/pat ch Right: Hip [employer]ar [id number] 02/23/2032 0 / / [id number] Stem Actis High Size 6 - [id number] Implanted:Qt y: 1 on 06/18/2022 by Salvatore Blanton MD at [facility] Stem Right: Hip [employer] [id number] 01/24/2032 1010-09-30 0 / / [id number] Sector Cup W/Gription 56mm - [id number] Implanted:Qt y: 1 on 06/18/2022 by Salvatore Blanton MD at [facility] Total joint Right: Hip [employer] [id number] 03/25/2032 6 / / [id number] Screw J&J 40 1217-40-500 - [id number] Implanted:Qt y: 1 on 06/18/2022 by Salvatore Blanton MD at [facility] Total joint Right: Hip [employer] Ne[employer]ar [id number] 12/24/2031 0 / / [id number] Lnr J&J Ntl 36x56 1221-36-056 - [id number] Implanted:Qt y: 1 on 06/18/2022 by Salvatore Blanton MD at [facility] Total joint Right: Hip [employer] [id number] 03/25/2027 6 / / [id number] Procedures Procedure Name Priority Date/Time Associated Diagnosis Comments BASIC METAB PROFILE Routine 06/19/2022 6 :59 AM CDT from Last 3 Months or Most Recently Relevant to Health Maintenance Results * (ABNORMAL) Basic Metabolic Profile (06/19/2022 6:59 AM CDT) Sodium 136 136 - 145 mmol/L DIMENSION EXL ANALYZER 06/19/2022 7:41 AM CDT [facility] Potassium 4.4 3.5 - 5.1 mmol/L DIMENSION EXL ANALYZER 06/19/2022 7:41 AM CDT [facility] Chloride 102 98 - 107 mmol/L DIMENSION EXL ANALYZER 06/19/2022 7:41 AM T [facility] Carbon Dioxide 24 21 - 32 mmol/L DIMENSION EXL ANALYZER 06/19/2022 7:41 AM CDT [facility] BUN (Urea Nitro) 24(H) 7 - 18 mg/dL DIMENSION EXL ANALYZER 06/19/2022 7:41 AM CDT [facility] Creatinine 1.20 0.70 - 1.30 mg/dL DIMENSION EXL ANALYZER 06/19/2022 7:41 AM CDT [facility] Est GFR (CKD-EPI) >60.00 >60.00 mL/min/1. 73m2 DIMENSION EXL ANALYZER 06/19/2022 7:41 AM CDT [facility] Comment:Calculation based on the Chronic Kidney Disease Epidemiology Collaboration (CKD-EPI) equation refit without adjustment for race. Glucose 149(H) 70 - 110 mg/dL DIMENSION EXL ANALYZER 06/19/2022 7:41 AM CDT [facility] Calcium, Serum 8.8 8.5 - 10.1 mg/dL DIMENSION EXL ANALYZER 06/19/2022 7:41 AM T [facility] Anion Gap 10.0 0.0 - 15.0 mmol/L DIMENSION EXL ANALYZER 06/19/2022 7:41 AM T [facility] Blood 06/19/2022 6:59 AM CDT 06/19/2022 7:22 AM CDT No Contreras DO CHEMISTRY ORDERABLE Final Resul t [facility] [address] [place] [address] from Last 3 Months or Most Recently Relevant to Health Maintenance Insurance [facility] MEDICARE ADVANTAGE [facility] MEDICARE ADVANTAGE [facility] MEDICARE ADVANTAGE Advance Directives For more information, please contact: [phone] * Full Code (Latest Code Status on File) Date Activated Date Inactivated Comments 06/18/2022 12:47 PM 06/19/2022 6:12 PM Question Answer Comments How was code status determined? [facility] Care Teams Long Lines Operator Relationship Specialty Start Date End Date Mega Allen [address] [place] [address] PCP - General 07/09/24 John Wilcox MD [address] [place] [address] Neurology 04/25/22
--- OUTSIDE RECORDS SUMMARY | 2025-04-25 01:39 | XMS_ITS | Encounter Summary ---
Author Organization [facility] Address [address] [place] [address] Care Team Providers Care Fountain Pen Turner Name Role Phone Antonio Celeste MD Primary Care Provider U nealsharon Bill Bowens PA-C Primary Care Provider + Bill Bowens PA-C Unavailable [phone] Bill Bowens PA-C Unavailable [phone] Alex Rao MD Primary Care Provider [phone] Alex Rao MD Unavailable [phone] Beni Puga MD PhD Unavailable Alex Rao MD Unavailable [phone] Nate Loeng MD Unavailable [phone] Sharri Hdez MD Unavailable [phone] Alex Rao MD Unavailable [phone] Alex Rao MD Unavailable [phone] Russell Agosto MD Unavailable [phone] Magdalena Fry MD Unavailable Doris Chaney [facility] Unavailable [phone] Doris Chaney [facility] Unavailable [phone] Canelo Kelley MD Unavailable Encounter Details Date Type Department Care Team (Late st Contact Info) Description 02/23/2008 MyC Medical Advice [address] [address] Taiwo Yañez Social History Tobacco Use Types Packs/Day Years Used Date Smoking Tobacco: Former Cigarettes Q uit: 02/21/1974 Alcohol Use Standard Drinks/Week Comments Yes 0 (1 standard drink = 0.6 oz pur e alcohol) occasional Sex and Gender Information Value Date Recorded Sex Assigned at Male 07/18/2019 7:43 AM CDT Legal Sex Male 4:10 AM DRIVERS LICENSE EXAMINER Gender Identity Male 11/22/2018 10:40 AM DRIVERS LICENSE EXAMINER Sexual Orientation Straight 11/22/2018 10 :40 AM DRIVERS LICENSE EXAMINER Occupation Industry Job Start Date Job 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- [employer] Not on file Not on file Not on file documented as of this encounter Plan of Treatment Upcoming Encounters Date Type Department Care Team (Late st Contact Info) Description 06/30/2025 Ancillary Procedure [address] [address] Magdalena Fry MD [address] [place] [address] 10/02/2025 Ancillary Procedure [address] [address] Magdalena Fry MD [address] [place] [address] documented as of this encounter Visit Diagnoses Not on filedocumented in this encounter Care Teams Fountain Pen Turner Relationship Specialty Start Date End Date Antonio Celeste MD NO INFO AVAILABLE 08/25/2022 PCP - General 03/24/03 02/19/15 Bill Bowens PA-C NO INFO AVAILABLE 08/25/2022 PCP - General Physician District Operations Manager 02/20/15 09/18/19 Bill Bowens PA-C [address] [place] [address] PCP - Assigned PCP 01/14/15 12/28/18 Alex Rao MD [address] [facility] [place] [address] PCP - General Internal Medicine 09/19/19 Bill Bowens PA-C [address] [facility] [place] [address] Assigned PCP 01/14/15 12/03/19 Alex Rao MD [address] [place] [address] Assigned PCP 12/04/19 02/18/20 Beni Puga MD PhD [address] [place] [address] Assigned PCP 02/19/20 02/25/20 Alex Rao MD [address] [place] [address] Assigned PCP 02/26/20 03/20/21 Nate Leong MD [address] 123745 Assigned Surgical Provider 08/17/20 11/07/22 Sharri Hdez MD [address] [place] [address] 701315 Assigned Endocrinology Provider 12/16/20 03/16/24 Alex Rao MD [address] [place] 584261 Assigned PCP 03/21/21 Alex Rao MD [address] [place] 050711 Referring Physician Internal Medicine 04/02/22 Russell Agosto MD [address] 516085 Neurology 04/02/22 Magdalena Fry MD [address] 659825 Assigned Heart and Vascular Provider 04/26/22 02/15/24 Doris Chaney [facility] [address] [place] [phone] Pharmacist Pharmacist 07/21/22 Doris Chaney [facility] [address] [place] [phone] Assigned MTM Pharmacist 07/26/2202/14 [place] [address] [place] [phone] Nephrology 05/14/23 documented as of this encounter
--- OUTSIDE RECORDS SUMMARY | 2025-04-25 01:39 | XMS_ITS | Encounter Summary ---
Author Organization [facility] Address [address] [place] [address] Care Team Providers Care Neck Band Operator Name Role Phone Alex Rao MD Primary Care Provider [phone] Alex Rao MD Unavailable [phone] Nate Leong MD Unavailable [phone] Sharri Hdez MD Unavailable Alex Rao MD Unavailable [phone] Alex Rao MD Unavailable [phone] Russell Agosto MD Unavailable [phone] Magdalena Fry MD Unavailable Doris Chaney [facility] Unavailable Doris Chaney [facility] Unavailable Canelo Kelley MD Unavailable Encounter Details Date Type Department Care Team (Late st Contact Info) Description 12/13/2020 Maddi Wagner [address] [address] Sharri Hdez MD 420 [facility] [address] [place] [address] Social History Tobacco Use Types [...] AM CDT Legal Sex Male 4:10 AM CONFECTIONERY COOKER Gender Identity Male 11/22/2018 10:40 AM CONFECTIONERY COOKER Sexual Orientation Straight 11/22/2018 10 :40 AM CONFECTIONERY COOKER Occupation Industry Job Start Date Job 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 No / Unsure 12/10/2020 9:51 AM CONFECTIONERY COOKER documented as of this encounter Plan of Treatment Upcoming Encounters Date Type Department Care Team (Late st Contact Info) Description 06/30/2025 Ancillary Procedure [address] [address] Magdalena Fry MD [address] [place] [address] [phone] 10/02/2025 Ancillary Procedure [address] [phone] Magdalena Fry MD [address] [place] [address] [phone] documented as of this encounter Visit Diagnoses Not on filedocumented in this encounter Care Teams Neck Band Operator Relationship Specialty Start Date End Date Alex Rao MD PCP - General Internal Medicine 09/19/19 Alex Rao MD [address] [place] [address] Assigned PCP 02/26/20 03/20/21 Nate Leong MD [address] 339945 Assigned Surgical Provider 08/17/20 11/07/22 Sharri Hdez MD [address] [address] Assigned Endocrinology Provider 12/16/20 03/16/24 Alex Rao MD [address] [place] [address] Assigned PCP 03/21/21 Alex Rao MD [address] [place] [address] Referring Physician Internal Medicine 04/02/22 Russell Agosto MD [address] 327565 Neurology 04/02/22 Magdalena Fry MD [address] [place] [address] 517405 Assigned Heart and Vascular Provider 04/26/22 02/15/24 Doris Chaney [facility] [address] [place] [address] Pharmacist Pharmacist 07/21/22 Doris Chaney [facility] [address] [place] [address] Assigned MTM Pharmacist 07/26/2202/14 [place] [address] [place], [place] [phone] Nephrology 05/14/23 documented as of this encounter
--- OUTSIDE RECORDS SUMMARY | 2025-04-25 01:39 | XMS_ITS | Encounter Summary ---
Author Organization [facility] Address [address] [place] [address] Care Team Providers Care Veneer Splicer Name Role Phone Alex Rao MD Primary Care Provider [phone] Nate Leong MD Unavailable [phone] Sharri Hdez MD Unavailable Alex Rao MD Unavailable [phone] Alex Rao MD Unavailable [phone] Russell Agosto MD Unavailable [phone] Magdalena Fry MD Unavailable Doris Chaney [facility] Unavailable [phone] Doris Chaney [facility] Unavailable Canelo Kelley MD Unavailable Encounter Details Date Type Department Care Team (Late st Contact Info) Description 03/31/2022 Clint Avila [address] [address] Alex Rao MD [address] [place] [address] Social History Tobacco Use Types Packs/Day [...] AM CDT Legal Sex Male 4:10 AM FORESTRY FIRE AID Gender Identity Male 11/22/2018 10:40 AM FORESTRY FIRE AID Sexual Orientation Straight 11/22/2018 10 :40 AM FORESTRY FIRE AID Occupation Industry Job Start Date Job End [...] Contact Info) Description 06/30/2025 Ancillary Procedure [address] [address] Magdalena Fry MD [address] [place] [address] 995385 10/02/2025 Ancillary Procedure [address] [address] Magdalena Fry MD [address] [place] [address] documented as of this encounter Visit Diagnoses Diagnosis Hypertrophy of prostate without urinary obstruction Unspecified hyperplasia of prostate without urinary obstruction and other lower urinary tract symptoms (LUTS) documented in this encounter Care Teams Veneer Splicer Relationship Specialty Start Date End Date Alex Rao MD PCP - General Internal Medicine 09/19/19 Nate Leong MD [address] [address] Assigned Surgical Provider 08/17/20 11/07/22 Sharri Hdez MD [address] [address] Assigned Endocrinology Provider 12/16/20 03/16/24 Alex Rao MD [address] [place] [address] Assigned PCP 03/21/21 Alex Rao MD [address] [place] [address] Referring Physician Internal Medicine 04/02/22 Russell Agosto MD [address] [place] [address] 594005 Neurology 04/02/22 Magdalena Fry MD [address] [place] [address] 266855 Assigned Heart and Vascular Provider 04/26/22 02/15/24 Doris Chaney [facility] [address] [place] [address] Pharmacist Pharmacist 07/21/22 Doris Chaney [facility] [address] [place] [address] Assigned MTM Pharmacist 07/26/2202/14 [place] [address] [place] [address] Nephrology 05/14/23 documented as of this encounter
--- OUTSIDE RECORDS SUMMARY | 2025-04-25 01:39 | XMS_ITS | Encounter Summary ---
Author Organization [facility] Address [address] [place] [address] Care Team Providers Care Bullet Maker Name Role Phone Lyric Grimes MD Primary Care Provider U nealsharon Bill Bowens PA-C Primary Care Provider + Bill Bowens PA-C Unavailable [phone] Bill Bowens PA-C Unavailable [phone] Alex Rao MD Primary Care Provider [phone] Alex Rao MD Unavailable [phone] Beni Puga MD PhD Unavailable Alex Rao MD Unavailable Nate Leong MD Unavailable [phone] Sharri Hdez MD Unavailable [phone] Alex Rao MD Unavailable [phone] Alex Rao MD Unavailable [phone] Russell Agosto MD Unavailable [phone] Magdalena Fry MD Unavailable Doris Chaney [facility] Unavailable [phone] Doris Chaney [facility] Unavailable [phone] Canelo Kelley MD Unavailable Reason for Visit * Reason Onset Date Comments Refill Request 04/02/2009 metformin Encounter Details Date Type Department Care Team (Late Contact Info) Description 04/02/2009 MyC Refill M [address] [phone] Lyric Grimes MD NO INFO AVAILABLE 08/25/2022 Refill Request (metformin) Social History Tobacco Use Types Packs/Day Years Used Date Smoking Tobacco: Former Cigarettes Q uit: 02/21/1974 Alcohol Use Standard Drinks/Week Comments Yes 0 (1 standard drink = 0.6 oz pur e alcohol) occasional Sex and Gender Information Value Date Recorded Sex Assigned at Male 07/18/2019 7:43 AM CDT Legal Sex Male 4:10 AM STATISTICAL ENGINEER Gender Identity Male 11/22/2018 10:40 AM STATISTICAL ENGINEER Sexual Orientation Straight 11/22/2018 10 :40 AM STATISTICAL ENGINEER Occupation Industry Job Start Date Job 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 documented in this encounter Plan of Treatment Upcoming Encounters Date Type Department Care Team (Late st Contact Info) Description 06/30/2025 Ancillary Procedure [address] [place] [address] Magdalena Fry MD [address] [place] [address] [phone] 10/02/2025 Ancillary Procedure [address] [place] [address] Magdalena Fry MD [address] [place] [address] documented as of this encounter Visit Diagnoses Diagnosis Diabetes mellitus, type 2 (H) Type II or unspecified type diabetes mellitus without mention of complication, not stated as uncontrolled documented in this encounter Care Teams Bullet Maker Relationship Specialty Start Date End Date Lyric Grimes MD NO INFO AVAILABLE 08/25/2022 PCP - General 03/24/03 02/19/15 Bill Bowens PA-C NO INFO AVAILABLE 08/25/2022 PCP - General Physician Iron And Steel Work Supervisor 02/20/15 09/18/19 Bill Bowens PA-C [address] [place] [address] PCP - Assigned PCP 01/14/15 12/28/18 Alex Rao MD [address] [place] [address] PCP - General Internal Medicine 09/19/19 Bill Bowens PA-C [address] [place] [address] Assigned PCP 01/14/15 12/03/19 Alex Rao MD [address] [place] [address] Assigned PCP 12/04/19 02/18/20 Beni Puga MD PhD [address] [place] [address] Assigned PCP 02/19/20 02/25/20 Alex Rao MD [address] [place] [address] Assigned PCP 02/26/20 03/20/21 Nate Leong MD [address] 086375 Assigned Surgical Provider 08/17/20 11/07/22 Sharri Hdez MD [address] [facility] [address] [place], [place] 424965 Assigned Endocrinology Provider 12/16/20 03/16/24 Alex Rao MD [address] [place] [address] Assigned PCP 03/21/21 Alex Rao MD [address] [place] [address] Referring Physician Internal Medicine 04/02/22 Russell Agosto MD 420 [facility] [address] [place] [address] Neurology 04/02/22 Magdalena Fry MD 420 [facility] [address] [place], [place] 763965 Assigned Heart and Vascular Provider 04/26/22 02/15/24 Doris Chaney [facility] [address] [place] [phone] Pharmacist Pharmacist 07/21/22 Doris Chaney [facility] [address] [place] [phone] Assigned MTM Pharmacist 07/26/2202/14 [place] [address] [place] [phone] Nephrology 05/14/23 documented as of this encounter
--- OUTSIDE RECORDS SUMMARY | 2025-04-25 01:39 | XMS_ITS | Encounter Summary ---
Author Organization [facility] Address [address] [place] [address] Care Team Providers Care Inspector Raw Quartz Name Role Phone Alex Rao MD Primary Care Provider Nate Leong MD Unavailable [phone] Sharri Hdez MD Unavailable [phone] Alex Rao MD Unavailable [phone] Alex Rao MD Unavailable [phone] Russell Agosto MD Unavailable [phone] Magdalena Fry MD Unavailable Doris Chaney [facility] Unavailable Doris Chaney [facility] Unavailable Canelo Kelley MD Unavailable Reason for Visit * Reason Comments Medication Refill Encounter Details Date Type Department Care Team (Late st Contact Info) Description 09/07/[address] [address] Alex Rao MD [address] [place] [address] Medication Refill Social History Tobacco Use [...] AM CDT Legal Sex Male 4:10 AM RESPIRATORY CARE PROGRAM DIRECTOR Gender Identity Male 11/22/2018 10:40 AM RESPIRATORY CARE PROGRAM DIRECTOR Sexual Orientation Straight 11/22/2018 10 :40 AM RESPIRATORY CARE PROGRAM DIRECTOR Occupation Industry Job Start Date Job 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 No / Unsure 09/05/2021 7:50 AM RESPIRATORY CARE PROGRAM DIRECTOR documented as of this encounter Miscellaneous Notes [...] age 18 or older Adele CASTRO, RN IRATORY CARE PROGRAM DIRECTOR documented in this encounter Plan of Treatment Upcoming Encounters Date Type Department Care Team (Late st Contact Info) Description 06/30/2025 Ancillary Procedure [address] [address] Magdalena Fry MD [address] [place] [address] 993375 10/02/2025 Ancillary Procedure [address] [address] Magdalena Fry MD [address] [place] [address] documented as of this encounter Visit Diagnoses Diagnosis Hypertrophy of prostate without urinary obstruction Unspecified hyperplasia of prostate without urinary obstruction and other lower urinary tract symptoms (LUTS) Essential hypertension with goal blood pressure less than 140/90 Hyperlipidemia LDL goal <100 Other and unspecified hyperlipidemia documented in this encounter Care Teams Inspector Raw Quartz Relationship Specialty Start Date End Date Alex Rao MD PCP - General Internal Medicine 09/19/19 Nate Leong MD [address] 532675 Assigned Surgical Provider 08/17/20 11/07/22 Sharri Hdez MD [address] [place] [address] 101 [place] [address] Assigned Endocrinology Provider 12/16/20 03/16/24 Alex Rao MD [address] [place] [address] Assigned PCP 03/21/21 Alex Rao MD [address] [place] [address] Referring Physician Internal Medicine 04/02/22 Russell Agosto MD [address] 189285 Neurology 04/02/22 Magdalena Fry MD [address] 883035 Assigned Heart and Vascular Provider 04/26/22 02/15/24 Doris Chaney [facility] [address] [place] [phone] Pharmacist Pharmacist 07/21/22 Doris Chaney [facility] [address] [place] [phone] Assigned MTM Pharmacist 07/26/2202/14 [place] [address] [place] [phone] Nephrology 05/14/23 documented as of this encounter
--- OUTSIDE RECORDS SUMMARY | 2025-04-25 01:39 | XMS_ITS | Encounter Summary ---
Author Organization [facility] Address [address] [place] [address] Care Team Providers Care Mule Spinner Name Role Phone Alex Rao MD Primary Care Provider [phone] Nate Leong MD Unavailable [phone] Sharri Hdez MD Unavailable Alex Rao MD Unavailable [phone] Alex Rao MD Unavailable [phone] Russell Agosto MD Unavailable [phone] Magdalena Fry MD Unavailable Doris Chaney [facility] Unavailable Doris Chaney [facility] Unavailable Canelo Kelley MD Unavailable Encounter Details Date Type Department Care Team (Late st Contact Info) Description 01/31/2022 [facility] [address] [place] [address] Sharri Hdez MD [address] [place] [address] [address] [place] [address] Social History Tobacco Use Types [...] AM CDT Legal Sex Male 4:10 AM 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 Harrell - Please advise on lab orders to be drawn for the 02/17/2022 visit. Cathy Sotelo CMA Adult Endocrinology [facility] documented in this encounter Plan of Treatment Upcoming Encounters Date Type Department Care Team (Late st Contact Info) Description 06/30/2025 Ancillary Procedure [address] [address] Magdalena Fry MD [address] [place] [address] 097345 10/02/2025 Ancillary Procedure [address] [phone] Magdalena Fry MD [address] [place] [address] 104395 documented as of this encounter Visit Diagnoses Not on filedocumented in this encounter Care Teams Mule Spinner Relationship Specialty Start Date End Date Alex Rao MD PCP - General Internal Medicine 09/19/19 Nate Leong MD [address] 872385 Assigned Surgical Provider 08/17/20 11/07/22 Sharri Hdez MD [address] [facility] [address] [place] [address] Assigned Endocrinology Provider 12/16/20 03/16/24 Alex Rao MD [address] [facility] [place], [place] 1325[address] Assigned PCP 03/21/21 Alex Rao MD [address] [facility] [place], [place] 394823[address] Referring Physician Internal Medicine 04/02/22 Russell Agosto MD 420 [facility] [address] [place], [place] 779475 Neurology 04/02/22 Magdalena Fry MD [address] [place] [facility] 486 [place], [place] 545815 Assigned Heart and Vascular Provider 04/26/22 02/15/24 Doris Chaney [facility] [address] [place] [address] Pharmacist Pharmacist 07/21/22 Doris Chaney [facility] [address] [place] [phone] Assigned MTM Pharmacist 07/26/2202/14 [place] [address] [place] [phone] Nephrology 05/14/23 documented as of this encounter
--- OUTSIDE RECORDS SUMMARY | 2025-04-25 01:39 | XMS_ITS | Encounter Summary ---
Author Organization [place] Address [address] [place] [address] Care Team Providers Care Java J2Ee Software Engineer Name Role Phone Antonio Celeste MD Primary Care Provider U nealsharon Bill Bowens PA-C Primary Care Provider + Bill Bowens PA-C Unavailable [phone] Bill Bowens PA-C Unavailable [phone] Alex Rao MD Primary Care Provider [phone] Alex Rao MD Unavailable [phone] Beni Puga MD PhD Unavailable Alex Rao MD Unavailable Nate Leong MD Unavailable [phone] Sharir Hdez MD Unavailable [phone] Alex Rao MD Unavailable [phone] Alex Rao MD Unavailable [phone] Russell Agosto MD Unavailable [phone] Magdalena Fry MD Unavailable Doris Chaney [facility] Unavailable [phone] Doris Chaney [facility] Unavailable [phone] Canelo Kelley MD Unavailable Encounter Details Date Type Department Care Team (Late st Contact Info) Description 10/23/2008 [facility] Social History Tobacco Use Types Packs/Day Years Used Date Smoking Tobacco: Former Cigarettes Q uit: 02/21/1974 Alcohol Use Standard Drinks/Week Comments Yes 0 (1 standard drink = 0.6 oz pur e alcohol) occasional Sex and Gender Information Value Date Recorded Sex Assigned at Male 07/18/2019 7:43 AM CDT Legal Sex Male 4:10 AM TOBACCO PRIZER Gender Identity Male 11/22/2018 10:40 AM TOBACCO PRIZER Sexual Orientation Straight 11/22/2018 10 :40 AM TOBACCO PRIZER Occupation Industry Job Start Date Job 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- [employer] Not on file Not on file Not on file documented as of this encounter Plan of Treatment Upcoming Encounters Date Type Department Care Team (Late Contact Info) Description 06/30/2025 Ancillary Procedure [address] [address] Magdalena Fry MD [address] [place] [address] 028425 10/02/2025 Ancillary Procedure [address] [address] Magdalena Fry MD [address] [place] [address] documented as of this encounter Visit Diagnoses Not on filedocumented in this encounter Care Teams Java J2Ee Software Engineer Relationship Specialty Start Date End Date Antonio Celeste MD NO INFO AVAILABLE 08/25/2022 PCP - General 03/24/03 02/19/15 Bill Bowens PA-C NO INFO AVAILABLE 08/25/2022 PCP - General Physician Cheese Maker 02/20/15 09/18/19 Bill Bowens PA-C [address] [place] [address] PCP - Assigned PCP 01/14/15 12/28/18 Alex Rao MD [address] [place] [address] PCP - General Internal Medicine 09/19/19 Bill Bowens PA-C [address] [place] [address] Assigned PCP 01/14/15 12/03/19 Alex Rao MD [address] [facility] [place] [address] Assigned PCP 12/04/19 02/18/20 Beni Puga MD PhD [address] [facility] [address] Assigned PCP 02/19/20 02/25/20 Alex Rao MD [address] [facility] [address] Assigned PCP 02/26/20 03/20/21 Nate Leong MD [address] [place], [place] 949375 Assigned Surgical Provider 08/17/20 11/07/22 Sharri Hdez MD 420 [facility] 101 [place], [place] 856625 Assigned Endocrinology Provider 12/16/20 03/16/24 Alex Rao MD [address] [place] [address] Assigned PCP 03/21/21 Alex Rao MD [address] [place] [address] Referring Physician Internal Medicine 04/02/22 Russell Agosto MD [address] [address] Neurology 04/02/22 Magdalena Fry MD [address] [address] Assigned Heart and Vascular Provider 04/26/22 02/15/24 Doris Chaney [facility] [address] [place] [phone] Pharmacist Pharmacist 07/21/22 Doris Chaney [facility] [address] [place] [phone] Assigned MTM Pharmacist 07/26/2202/14 [place] [address] [place] [phone] Nephrology 05/14/23 documented as of this encounter
--- OUTSIDE RECORDS SUMMARY | 2025-04-25 01:39 | XMS_ITS | Encounter Summary ---
Author Organization [place] Address [address] [place] [address] Care Team Providers Care Director Account Management Name Role Phone Alex Rao MD Primary Care Provider [phone] Alex Rao MD Unavailable [phone] Nate Leong MD Unavailable [phone] Sharri Hdez MD Unavailable [phone] Alex Rao MD Unavailable [phone] Alex Rao MD Unavailable [phone] Russell Agosto MD Unavailable [phone] Magdalena Fry MD Unavailable Doris Chaney [facility] Unavailable Doris Chaney [facility] Unavailable Canelo Kelley MD Unavailable Encounter Details Date Type Department Care Team (Late st Contact Info) Description 02/07/2021 [facility] Bernard Avila [address] [address] Rehana Hoyt Social History Tobacco [...] AM CDT Legal Sex Male 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 FACILITY 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 Gender Identity Male 11/22/2018 10:40 AM FARM FACILITY MANAGER Sexual Orientation Straight 11/22/2018 10 :40 AM FARM FACILITY MANAGER Occupation Industry Job Start Date Job 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- [employer] Not on file Not on file Not on file documented as of this encounter Plan of Treatment Upcoming Encounters Date Type Department Care Team (Late st Contact Info) Description 06/30/2025 Ancillary Procedure [address] [phone] Magdalena Fry MD [address] [place] [address] 735345 10/02/2025 Ancillary Procedure [address] [phone] Magdalena Fry MD [address] [place] [address] [phone] documented as of this encounter Visit Diagnoses Not on filedocumented in this encounter Care Teams Director Account Management Relationship Specialty Start Date End Date Alex Rao MD PCP - General Internal Medicine 09/19/19 Alex Rao MD [address] [place] [address] Assigned PCP 02/26/20 03/20/21 Nate Leong MD [address] [address] Assigned Surgical Provider 08/17/20 11/07/22 Sharri Hdez MD [address] [place] [address] [facility] 101 [place], [place] 7[address]65 Assigned Endocrinology Provider 12/16/20 03/16/24 Alex Rao MD [address] [facility] [place], [place] 502631 Assigned PCP 03/21/21 Alex Rao MD [address] [facility] [place] [place] 726[address] Referring Physician Internal Medicine 04/02/22 Russell Agosto MD 420 [facility] 486 [place], [place] 5104[address] Neurology 04/02/22 Magdalena Fry MD 420 [facility] [address] [place], [place] 225215 Assigned Heart and Vascular Provider 04/26/22 02/15/24 Doris Chaney [facility] [address] [place] [phone] Pharmacist Pharmacist 07/21/22 Doris Chaney [facility] [address] [place] [phone] Assigned MTM Pharmacist 07/26/2202/14 [place] [address] [place] [phone] Nephrology 05/14/23 documented as of this encounter
--- OUTSIDE RECORDS SUMMARY | 2025-04-25 01:39 | XMS_ITS | Encounter Summary ---
Author Organization [facility] Address [address] [place] [address] Phone Care Team Providers Care Lodging House Keeper Name Role Phone Mega Allen MD Primary Care Provider [phone] Reason for Visit * Reason Onset Date Comments Med Refill 04/21/2025 Encounter Details Date Type Department Care Team (Late Contact Info) Description 04/21/2025 Refill [facility] [place] [address] Armida Cardona RN Social History Tobacco Use [...] Description 07/04/2025 11:00 AM CDT Office Visit [facility] [address] [place] [address] Kennedy Mcnulty MD [address] [facility] [address] [place] [address] documented as of this encounter Visit Diagnoses Not on filedocumented in this encounter Care Teams Lodging House Keeper Relationship Specialty Start Date End Date Mega Allen MD [address] [place] [address] PCP - General Internal Medicine 12/01/24 documented as of this encounter
--- OUTSIDE RECORDS SUMMARY | 2025-04-25 01:39 | XMS_ITS | Clinical Summary ---
Author Organization [facility] Address [address] [place] [address] Phone Care Team Providers Care Technology Manager Name Role Phone Mega Allen MD Primary Care Provider Allergies Active Allergy Reactions Criticality Noted Date [...] Type Department Care Team Description 04/21/20[address] [facility] [address] [place] [address] Armida Cardona RN 01/24/2025 [address] [facility] [address] [place] [address] Kennedy Mcnulty MD from Last 3 Months [...] Comments Blood Pressure 159/77 11/29/2024 10:46 AM ASSISTANT READING TEACHER Pulse 69 11/29/2024 10:46 AM ASSISTANT READING TEACHER Temperature 36.8 C (98.2 F) 11/29/2024 10:46 AM ASSISTANT READING TEACHER Respiratory Rate 12 03/30/2024 10:25 AM CDT Oxygen Saturation 97% 03/30/2024 10:25 AM CDT Inhaled Oxygen Concentration - - Weight 113 kg (248 lb 3.2 oz) 11/29/2024 10:46 A M ASSISTANT READING TEACHER Height 182.9 cm (6') 03/30/2024 10:25 AM CDT Body Mass Index 33.66 03/30/2024 10:25 AM CDT Plan of Treatment Upcoming Encounters Date Type Department Care Team (Late st Contact Info) Description 07/04/2025 11:00 AM CDT [facility] [address] [facility] [address] [place], [place] [address] Kennedy Mcnulty MD [address] [facility] [address] [place], [place] [address] Health Maintenance Due Date Last Done Comments Diabetic Foot Exam 1960 Ophthalmology Exam 1960 COVID-19 Vaccine (2023-2 5 season) 2024 07/16/2022, 04/09/2022, 10/26/2021, Additional history exists Influenza Vaccine (Season Ended) 2025 08/13/2023, 10/26/2022, 07/16/2022, Additional history exists Pneumococcal PPSV23/PCV13 65 + Years / High and Highest Risk Completed 10/26/2022, 10/28/2016, 08/23/2015, Additional history exists Insurance PM [employer] Care Teams Technology Manager Relationship Specialty Start Date End Date Mega Allen MD [address] [place] [address] PCP - General Internal Medicine 12/01/24
--- OUTSIDE RECORDS SUMMARY | 2025-04-25 01:39 | XMS_ITS | Encounter Summary ---
Author Organization [place] Address [address] [place] [address] Care Team Providers Care Solar Pv Installer Name Role Phone Alex Rao MD Primary Care Provider Nate Leong MD Unavailable [phone] Sharri Hdez MD Unavailable Alex Rao MD Unavailable [phone] Alex Rao MD Unavailable [phone] Russell Agosto MD Unavailable [phone] Magdalena Fry MD Unavailable Doris Chaney [facility] Unavailable Doris Chaney [facility] Unavailable Canelo Kelley MD Unavailable Encounter Details Date Type Department Care Team (Late st Contact Info) Description 03/06/2022 [facility] [address] [address] Alex Rao MD [address] [place] [address] Social History Tobacco Use Types Packs/Day [...] AM CDT Legal Sex Male 4:[address] JUSTICE Gender Identity Male 11/22/2018 10:[address] JUSTICE Sexual Orientation Straight 11/22/2018 10 :[address] JUSTICE Occupation Industry Job Start Date Job End [...] Please review and advise. Rosangela Ortega RN [facility] documented in this encounter Plan of Treatment Upcoming Encounters Date Type Department Care Team (Late st Contact Info) Description 06/30/2025 Ancillary Procedure [address] [address] Magdalena Fry MD [address] [place] [address] 002325 10/02/2025 Ancillary Procedure [address] [phone] Magdalena Fry MD 9[address] [place], [place] 5[address] documented as of this encounter Visit Diagnoses Not on filedocumented in this encounter Care Teams Solar Pv Installer Relationship Specialty Start Date End Date Alex Rao MD PCP - General Internal Medicine 09/19/19 Nate Leong MD [address] 016555 Assigned Surgical Provider 08/17/20 11/07/22 Sharri Hdez MD [address] [place] [address] 101 [place], [place] 2[address] Assigned Endocrinology Provider 12/16/20 03/16/24 Alex Rao MD [address] [place], [place] 456[address] Assigned PCP 03/21/21 Alex Rao MD [address] [place], [place] [address] Referring Physician Internal Medicine 04/02/22 Russell Agosto MD [address] [place] [address] 486 [place], [place] 24[address] Neurology 04/02/22 Magdalena Fry MD [address] [place] [address] 740475 Assigned Heart and Vascular Provider 04/26/22 02/15/24 Doris Chaney, [facility] [address] [place] [phone] Pharmacist Pharmacist 07/21/22 Doris Chaney, [facility] [address] [place] [address] Assigned MTM Pharmacist 07/26/2202/14 [place] [address] [place] [phone] Nephrology 05/14/23 documented as of this encounter
--- OUTSIDE RECORDS SUMMARY | 2025-04-25 01:39 | XMS_ITS | Encounter Summary ---
Author Organization [place] Address [address] [place] [address] Care Team Providers Care Tripe Cooker Name Role Phone Alex Rao MD Primary Care Provider [phone] Nate Leong MD Unavailable [phone] Sharri Hdez MD Unavailable [phone] Alex Rao MD Unavailable [phone] Alex Rao MD Unavailable [phone] Russell Agosto MD Unavailable [phone] Magdalena Fry MD Unavailable Doris Chaney [facility] Unavailable [phone] Doris Chaney [facility] Unavailable Canelo Kelley MD Unavailable Encounter Details Date Type Department Care Team (Late st Contact Info) Description 07/19/2021 [facility] [address] [address] Oksana Torres ATC Social History [...] AM CDT Legal Sex Male 4:10 AM TERRITORY ACCOUNT REPRESENTATIVE Gender Identity Male 11/22/2018 10:40 AM TERRITORY ACCOUNT REPRESENTATIVE Sexual Orientation Straight 11/22/2018 10 :40 AM TERRITORY ACCOUNT REPRESENTATIVE Occupation Industry Job Start Date Job 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- [employer] Not on file Not on file Not on file documented as of this encounter Plan of Treatment Upcoming Encounters Date Type Department Care Team (Late st Contact Info) Description 06/30/2025 Ancillary Procedure [address] [phone] Magdalena Fry MD [address] [place] [address] 333535 10/02/2025 Ancillary Procedure [address] [phone] Magdalena Fry MD [address] [place] [address] [phone] documented as of this encounter Visit Diagnoses Not on filedocumented in this encounter Care Teams Tripe Cooker Relationship Specialty Start Date End Date Alex Rao MD PCP - General Internal Medicine 09/19/19 Nate Leong MD [address] [facility] 500 [place] [address] Assigned Surgical Provider 08/17/20 11/07/22 Sharri Hdez MD [address] [place] [address] 101 [place] [address] Assigned Endocrinology Provider 12/16/20 03/16/24 Alex Rao MD [address] [place] [address] Assigned PCP 03/21/21 Alex Rao MD [address] [place] [address] Referring Physician Internal Medicine 04/02/22 Russell Agosto MD [address] [address] Neurology 04/02/22 Magdalena Fry MD [address] [address] Assigned Heart and Vascular Provider 04/26/22 02/15/24 Doris Chaney [facility] [address] [place] [phone] Pharmacist Pharmacist 07/21/22 Doris Chaney [facility] [address] [place] [phone] Assigned MTM Pharmacist 07/26/2202/14 [place] [address] [place] [phone] Nephrology 05/14/23 documented as of this encounter
--- OUTSIDE RECORDS SUMMARY | 2025-04-25 01:39 | XMS_ITS | Encounter Summary ---
Author Organization [place] Address [address] [place] [address] Care Team Providers Care Sulphate Tester Name Role Phone Bill Bowens PA-C Primary Care Provider + Bill Bowens PA-C Unavailable [phone] Bill Bowens PA-C Unavailable [phone] Alex Rao MD Primary Care Provider Alex Rao MD Unavailable [phone] Beni Puga MD PhD Unavailable Alex Rao MD Unavailable [phone] Nate Leong MD Unavailable [phone] Sharri Hdez MD Unavailable [phone] Alex Rao MD Unavailable [phone] Alex Rao MD Unavailable [phone] Russell Agosto MD Unavailable [phone] Magdalena Fry MD Unavailable Doris Chaney [facility] Unavailable [phone] Doris Chaney [facility] Unavailable [phone] Canelo Kelley MD Unavailable Reason for Visit * Reason Onset Date Comments Patient Request 04/23/2018 Encounter Details Date Type Department Care Team (Late st Contact Info) Description 04/23/2018 MyC Medical Advice [address] [address] Bill Bowens PA-C [address] [place] [address] Patient Request Social History Tobacco Use Types Packs/Day Years Used Date Smoking Tobacco: Former Cigarettes 0.5 3 0 02/21/1971 - 02/21/1974 Pipe Smokeless Tobacco: Former Alcohol Use Standard Drinks/Week Comments Yes 0 (1 standard drink = 0.6 oz pur e alcohol) 3 drinks/week Sex and Gender Information Value Date Recorded Sex Assigned at Male 07/18/2019 7:43 AM CDT Legal Sex Male 4:10 AM MONUMENT LETTERER Gender Identity Male 11/22/2018 10:40 AM MONUMENT LETTERER Sexual Orientation Straight 11/22/2018 10 :40 AM MONUMENT LETTERER Occupation Industry Job Start Date Job 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- [employer] Not on file Not on file Not on file documented as of this encounter Plan of Treatment Upcoming Encounters Date Type Department Care Team (Late st Contact Info) Description 06/30/2025 Ancillary Procedure [address] [phone] Magdalena Fry MD [address] [place] [address] 027415 10/02/2025 Ancillary Procedure [address] [phone] Magdalena Fry MD [address] [place] [address] 409555 documented as of this encounter Visit Diagnoses Not on filedocumented in this encounter Care Teams Sulphate Tester Relationship Specialty Start Date End Date Bill Bowens PA-C PCP - General Physician Special Warfare Boat Operator 02/20/15 09/18/19 Bill Bowens PA-C [address] [address] PCP - Assigned PCP 01/14/15 12/28/18 Alex Rao MD [address] [address] PCP - General Internal Medicine 09/19/19 Bill Bowens PA-C [address] [place] [address] Assigned PCP 01/14/15 12/03/19 Alex Rao MD 6320 [place] [address] Assigned PCP 12/04/19 02/18/20 Beni Puga MD PhD 6320 [place] [address] Assigned PCP 02/19/20 02/25/20 Alex Rao MD 6320 [place] [address] Assigned PCP 02/26/20 03/20/21 Nate Leong MD [address] [place] 756425 Assigned Surgical Provider 08/17/20 11/07/22 Sharri Hdez MD [address] [place] [address] 563595 Assigned Endocrinology Provider 12/16/20 03/16/24 Alex Rao MD [address] [place] [address] Assigned PCP 03/21/21 Alex Rao MD [address] [place] [address] Referring Physician Internal Medicine 04/02/22 Russell Agosto MD [address] 431825 Neurology 04/02/22 Magdalena Fry MD [address] 760715 Assigned Heart and Vascular Provider 04/26/22 02/15/24 Doris Chaney [facility] [address] [place] [address] Pharmacist Pharmacist 07/21/22 Doris Chaney [facility] [address] [place] [phone] Assigned MTM Pharmacist 07/26/2202/14 [place] [address] [place] [address] Nephrology 05/14/23 documented as of this encounter
--- OUTSIDE RECORDS SUMMARY | 2025-04-25 01:39 | XMS_ITS | Encounter Summary ---
Author Organization [place] Address [address] [place] [address] Care Team Providers Care Christmas Tree Grader Name Role Phone Bill Bowens PA-C Primary Care Provider + Bill Bowens PA-C Unavailable [phone] Alex Rao MD Primary Care Provider [phone] Alex Rao MD Unavailable [phone] Beni Puga MD PhD Unavailable Alex Rao MD Unavailable [phone] Nate Leong MD Unavailable [phone] Sharri Hdez MD Unavailable [phone] Alex Rao MD Unavailable [phone] Alex Rao MD Unavailable [phone] Russell Agosto MD Unavailable [phone] Magdalena Fry MD Unavailable Doris Chaney [facility] Unavailable [phone] Doris Chaney [facility] Unavailable [phone] Canelo Kelley MD Unavailable Reason for Visit * Reason Onset Date Comments Medication Refill 01/18/2019 lisinopril (TN INIVIL/ZESTRIL) 10 MG tablet Refill Request 01/18/2019 atorvastatin (LI PITOR) 40 MG tablet Refill Request 01/18/2019 tamsulosin (FLOM AX) 0.4 MG capsule Encounter Details Date Type Department Care Team (Late st Contact Info) Description 01/18/[address] [phone] Bill Bowens PA-C [address] [place] [address] Medication Refill (lisinopril (PRINIVIL/ZESTRIL) 10 MG tablet); [...] AM CDT Legal Sex Male 4:10 AM STEEL PAN FORM PLACING SUPERVISOR Gender Identity Male 11/22/2018 10:40 AM STEEL PAN FORM PLACING SUPERVISOR Sexual Orientation Straight 11/22/2018 10 :40 AM STEEL PAN FORM PLACING SUPERVISOR Occupation Industry Job Start Date Job [...] st Contact Info) Description 06/30/2025 Ancillary Procedure [address] [phone] Magdalena Fry MD [address] [place] [address] 450445 10/02/2025 Ancillary Procedure [address] [address] Magdalena Fry MD [address] [place] [address] 168465 documented as of this encounter Visit Diagnoses Diagnosis Hyperlipidemia LDL goal <100 Other and unspecified hyperlipidemia Essential hypertension with goal blood pressure less than 140/90 Hypertrophy of prostate without urinary obstruction Unspecified hyperplasia of prostate without urinary obstruction and other lower urinary tract symptoms (LUTS) documented in this encounter Care Teams Christmas Tree Grader Relationship Specialty Start Date End Date Bill Bowens PA-C PCP - General Physician Nuclear Weapons Specialist 02/20/15 09/18/19 Alex Rao MD [address] [place] [place] [address] PCP - General Internal Medicine 09/19/19 Bill Bowens PA-C [address] [place] [place] [address] Assigned PCP 01/14/15 12/03/19 Alex Rao MD [address] [place] [address] Assigned PCP 12/04/19 02/18/20 Beni Puga MD PhD [address] [place] [address] Assigned PCP 02/19/20 02/25/20 Alex Rao MD [address] [place] [address] Assigned PCP 02/26/20 03/20/21 Nate Leong MD [address] [address] Assigned Surgical Provider 08/17/20 11/07/22 Sharri Hdez MD [address] [place] [address] Assigned Endocrinology Provider 12/16/20 03/16/24 Alex Rao MD [address] [place] [address] Assigned PCP 03/21/21 Alex Rao MD [address] [facility] [address] [place] [address] Referring Physician Internal Medicine 04/02/22 Russell Agosto MD [address] 188[address] Neurology 04/02/22 Magdalena Fry MD [address] 017255 Assigned Heart and Vascular Provider 04/26/22 02/15/24 Doris Chaney [facility] [address] [place] [phone] Pharmacist Pharmacist 07/21/22 Doris Chaney [facility] [address] [place] [place] [phone] Assigned MTM Pharmacist 07/26/2202/14 [place] [address] [phone] Nephrology 05/14/23 documented as of this encounter
--- OUTSIDE RECORDS SUMMARY | 2025-04-25 01:39 | XMS_ITS | Encounter Summary ---
Author Organization [place] Address [facility] [place] [address] Care Team Providers Care Blending Machine Feeder Name Role Phone Alex Rao MD Primary Care Provider [phone] Nate Leong MD Unavailable [phone] Sharri Hdez MD Unavailable Alex Rao MD Unavailable [phone] Alex Rao MD Unavailable [phone] Russell Agosto MD Unavailable [phone] Magdalena Fry MD Unavailable Doris Chaney [facility] Unavailable Doris Chaney [facility] Unavailable Canelo Kelley MD Unavailable Encounter Details Date Type Department Care Team (Latest Contact Info) Description 08/07/2021 [facility] [address] [address] Orion Stark, [address] [address] Lumbar radiculopathy (Primary Dx) Social [...] AM CDT Legal Sex Male 4:10 AM SALES SOLUTIONS REPRESENTATIVE Gender Identity Male 11/22/2018 10:40 AM SALES SOLUTIONS REPRESENTATIVE Sexual Orientation Straight 11/22/2018 10 :40 AM SALES SOLUTIONS REPRESENTATIVE Occupation Industry Job Start Date Job [...] faxed to [facility]. Rehana guardado Procedure Spacecraft Systems Engineer Orthopedics, Podiatry, Sports Medicine, ENT/Eye Specialties [facility] [phone] documented in this encounter Plan of Treatment Upcoming Encounters Date Type Department Care Team (Late st Contact Info) Description 06/30/2025 Ancillary Procedure [address] [place] [address] Magdalena Fry MD [address] [place] [address] [phone] 10/02/2025 Ancillary Procedure [address] [place] [address] Magdalena Fry MD [address] [place] [address] documented as of this encounter Visit Diagnoses Diagnosis Lumbar radiculopathy- Primary Thoracic or lumbosacral neuritis or radiculitis, unspecified documented in this encounter Care Teams Blending Machine Feeder Relationship Specialty Start Date End Date Alex Rao MD PCP - General Internal Medicine 09/19/19 Nate Leong MD [address] 424125 Assigned Surgical Provider 08/17/20 11/07/22 Sharri Hdez MD [address] [place] [address] 974555 Assigned Endocrinology Provider 12/16/20 03/16/24 Alex Rao MD [address] [place], [place] 248431 Assigned PCP 03/21/21 Alex Rao MD [address] [place], [place] 529721 Referring Physician Internal Medicine 04/02/22 Russell Agosto MD [address] [place] [address] [address] [place] [address] Neurology 04/02/22 Magdalena Fry MD [address] [place] [address] Assigned Heart and Vascular Provider 04/26/22 02/15/24 Doris Chaney, [facility] [address] [address] Pharmacist Pharmacist 07/21/22 Doris Chaney [facility] [address] [address] Assigned MTM Pharmacist 07/26/2202/14 [place] [address] [address] Nephrology 05/14/23 documented as of this encounter
--- OUTSIDE RECORDS SUMMARY | 2025-04-25 01:39 | XMS_ITS | Clinical Summary ---
Author Organization [facility] [employer] [facility] Address [address] [address] Phone Care Team Providers Care Industrial Green Systems Designer Name Role Phone Unavailable Primary Care Provider [...] topic Insurance [employer] [place] [address]
--- OUTSIDE RECORDS SUMMARY | 2025-04-25 01:39 | XMS_ITS | Encounter Summary ---
Author Organization [place] Address [address] [place] [address] Care Team Providers Care Program Therapist Name Role Phone Bill Bowens PA-C Primary Care Provider + Bill Bowens PA-C Unavailable [phone] Bill Bowens PA-C Unavailable [phone] Alex Rao MD Primary Care Provider [phone] Alex Rao MD Unavailable [phone] Beni Puga MD PhD Unavailable Alex Rao MD Unavailable [phone] Nate Leong MD Unavailable [phone] Sharri Hdez MD Unavailable [phone] Alex Rao MD Unavailable [phone] Alex Rao MD Unavailable [phone] Russell Agosto MD Unavailable [phone] Magdalena Fry MD Unavailable Doris Chaney [facility] Unavailable + [phone] Doris Chaney [facility] Unavailable + [phone] Canelo Kelley MD Unavailable Encounter Details Date Type Department Care Team (Late st Contact Info) Description 04/03/2015 [facility] Medical Advice [address] [address] Jyothi Collins Social History Tobacco [...] AM CDT Legal Sex Male 4:10 AM OFFSET PRINTING PRESSMEN Gender Identity Male 11/22/2018 10:40 AM OFFSET PRINTING PRESSMEN Sexual Orientation Straight 11/22/2018 10 :40 AM OFFSET PRINTING PRESSMEN Occupation Industry Job Start Date Job 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- [employer] Not on file Not on file Not on file documented as of this encounter Plan of Treatment Upcoming Encounters Date Type Department Care Team (Late st Contact Info) Description 06/30/2025 Ancillary Procedure [address] [address] Magdalena Fry MD [address] [place] [address] [phone] 10/02/2025 Ancillary Procedure [address] [address] Magdalena Fry MD [address] [place] [address] [phone] documented as of this encounter Visit Diagnoses Not on filedocumented in this encounter Care Teams Program Therapist Relationship Specialty Start Date End Date Bill Bowens PA-C PCP - General Physician Spray Crew 02/20/15 09/18/19 Bill Bowens PA-C [address] [place] [address] PCP - Assigned PCP 01/14/15 12/28/18 Alex Rao MD [address] [address] PCP - General Internal Medicine 09/19/19 Bill Bowens PA-C [address] [address] Assigned PCP 01/14/15 12/03/19 Alex Rao MD [address] [place] [address] Assigned PCP 12/04/19 02/18/20 Beni Puga MD PhD [address] [facility] [place] [address] Assigned PCP 02/19/20 02/25/20 Alex Rao MD [address] [place] [address] Assigned PCP 02/26/20 03/20/21 Nate Leong MD [address] [address] Assigned Surgical Provider 08/17/20 11/07/22 Sharri Hdez MD [address] [place] [address] Assigned Endocrinology Provider 12/16/20 03/16/24 Alex Rao MD [address] [place] [address] Assigned PCP 03/21/21 Alex Rao MD [address] [place] [address] Referring Physician Internal Medicine 04/02/22 Russell Agosto MD [address] [place] [address] Neurology 04/02/22 Magdalena Fry MD [address] 635405 Assigned Heart and Vascular Provider 04/26/22 02/15/24 Doris Chaney [facility] [address] [phone] Pharmacist Pharmacist 07/21/22 Doris Chaney [facility] [address] [phone] Assigned MTM Pharmacist 07/26/2202/14 [place] [address] [phone] Nephrology 05/14/23 documented as of this encounter
--- OUTSIDE RECORDS SUMMARY | 2025-04-25 01:39 | XMS_ITS | Referral Summary ---
Author Organization [facility] Address [address] [place] [address] Care Team Providers Care Building Principal Name Role Phone John Wilcox MD Unavailable [phone] [place] Primary Care Provider [phone] Allergies Active Allergy Reactions Criticality Noted Date [...] mcg/actuation (ASTELIN) 137 mcg (0.1 %) Nasal [place] nasal spray Instill 2 sprays into EACH [...] diabetes mellitus wit h hyperglycemia, unspecified whether intermediate insulin use 02/13/2022 BPH with obstruction/lower urinary [...] Comments Blood Pressure 126/68 12/28/2024 1:45 PM ADVANCED PRACTICE PROFESSIONAL Pulse 82 12/28/2024 1:45 PM ADVANCED PRACTICE PROFESSIONAL Temperature 36.3 C (97.3 F) 11/22/2024 9:40 AM ADVANCED PRACTICE PROFESSIONAL Respiratory Rate 18 11/22/2024 10:30 AM ADVANCED PRACTICE PROFESSIONAL Oxygen Saturation 98% 12/28/2024 1:45 PM ADVANCED PRACTICE PROFESSIONAL Inhaled Oxygen Concentration - - Weight 114.3 kg (252 lb) 12/28/2024 1:45 PM ADVANCED PRACTICE PROFESSIONAL Height 182.9 cm (6') 12/28/2024 1:45 PM ADVANCED PRACTICE PROFESSIONAL Body Mass Index 34.18 12/28/2024 1:45 PM ADVANCED PRACTICE PROFESSIONAL Plan of Treatment Not on file Medical Devices Implanted Type Area Pig Iron Loader Device Identifier Shelf Expiration Date Model / Serial / Lot Fm Hd [facility] 36/+1.5 1365-36-310 - [id number] Implanted:Qt y: 1 on 06/18/2022 by Salvatore Blanton MD at [facility] Head Right: Hip Neymar & Neymar [id number] 0 / / Mesh Vntrlght St W Echo Ps 6x8 - [id number] Implanted:Qt y: 1 on 02/23/2013 by Dallas Dejesus MD at [facility] Mesh/pat ch N/A: Abdomen [employer] 12/24/2014 [id number] / / [id number] [place] H J&J Elmn 1246-03-000 - [id number] Implanted:Qt y: 1 on 06/18/2022 by Salvatore Blanton MD at [facility] Mesh/pat ch Right: Hip [employer]ar [id number] 02/23/2032 0 / / [id number] Stem Actis High Size 6 - [id number] Implanted:Qt y: 1 on 06/18/2022 by Salvatore Blanton MD at [facility] Stem Right: Hip [employer] [id number] 01/24/2032 1010-09-30 0 / / [id number] Sector Cup W/Gription 56mm - [id number] Implanted:Qt y: 1 on 06/18/2022 by Salvatore Blanton MD at [facility] Total joint Right: Hip [employer] [id number] 03/25/2032 6 / / [id number] Screw J&J 40 1217-40-500 - [id number] Implanted:Qt y: 1 on 06/18/2022 by Salvatore Blanton MD at [facility] Total joint Right: Hip [employer]ym[employer] Ne[employer]ar [id number] 12/24/2031 0 / / [id number] Lnr J&J Ntl 36x56 1221-36-056 - [id number] Implanted:Qt y: 1 on 06/18/2022 by Salvatore Blanton MD at [facility] Total joint Right: Hip [employer] [id number] 03/25/2027 6 / / [id number] Procedures Procedure Name Priority Date/Time Associated Diagnosis Comments BASIC METAB PROFILE Routine 06/19/2022 6 :59 AM CDT from Last 3 Months or Most Recently Relevant to Health Maintenance Results * (ABNORMAL) Basic Metabolic Profile (06/19/2022 6:59 AM CDT) Sodium 136 136 - 145 mmol/L DIMENSION EXL ANALYZER 06/19/2022 7:41 AM CDT [facility] Potassium 4.4 3.5 - 5.1 mmol/L DIMENSION EXL ANALYZER 06/19/2022 7:41 AM T [facility] Chloride 102 98 - 107 mmol/L DIMENSION EXL ANALYZER 06/19/2022 7:41 AM T [facility] Carbon Dioxide 24 21 - 32 mmol/L DIMENSION EXL ANALYZER 06/19/2022 7:41 AM [facility] BUN (Urea Nitro) 24(H) 7 - 18 mg/dL DIMENSION EXL ANALYZER 06/19/2022 7:41 AM [facility] Creatinine 1.20 0.70 - 1.30 mg/dL DIMENSION EXL ANALYZER 06/19/2022 7:41 AM [facility] Est GFR (CKD-EPI) >60.00 >60.00 mL/min/1. 73m2 DIMENSION EXL ANALYZER 06/19/2022 7:41 AM T [facility] Comment:Calculation based on the Chronic Kidney Disease Epidemiology Collaboration (CKD-EPI) equation refit without adjustment for race. Glucose 149(H) 70 - 110 mg/dL DIMENSION EXL ANALYZER 06/19/2022 7:41 AM T [facility] Calcium, Serum 8.8 8.5 - 10.1 mg/dL DIMENSION EXL ANALYZER 06/19/2022 7:41 AM [facility] Anion Gap 10.0 0.0 - 15.0 mmol/L DIMENSION EXL ANALYZER 06/19/2022 7:41 AM [facility] Blood 06/19/2022 6:59 AM CDT 06/19/2022 7:22 AM CDT us No Contreras DO CHEMISTRY ORDERABLE Final Resul t [facility] [address] [place] [address] from Last 3 Months or Most Recently Relevant to Health Maintenance Insurance [facility] MEDICARE ADVANTAGE [facility] MEDICARE ADVANTAGE [facility] MEDICARE ADVANTAGE Advance Directives For more information, please contact: [phone] * Full Code (Latest Code Status on File) Date Activated Date Inactivated Comments 06/18/2022 12:47 PM 06/19/2022 6:12 PM Question Answer Comments How was code status determined? Physician Determ ined Care Teams Building Principal Relationship Specialty Start Date End Date Mega [place] [address] [place] [address] PCP - General 07/09/24 John Wilcox MD [address] [place] [address] Neurology 04/25/22
--- OUTSIDE RECORDS SUMMARY | 2025-04-25 01:39 | XMS_ITS | Encounter Summary ---
Author Organization [place] Address [address] [place] [address] Care Team Providers Care Algebra Tutor Name Role Phone Alex Rao MD Primary Care Provider Alex Rao MD Unavailable [phone] Nate Leong MD Unavailable [phone] Sharri Hdez MD Unavailable [phone] Alex Rao MD Unavailable [phone] Alex Rao MD Unavailable [phone] Russell Agosto MD Unavailable [phone] Magdalena Fry MD Unavailable Doris Chaney [facility] Unavailable Doris Chaney [facility] Unavailable Canelo Kelley MD Unavailable Reason for Visit * Reason Comments Medication Refill Encounter Details Date Type Department Care Team (Late st Contact Info) Description [facility]21 [facility] [address] [address] Alex Rao MD [address] [place] [address] Medication Refill Social History Tobacco [...] AM CDT Legal Sex Male 4:10 AM 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 WORK 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 LAYER Gender Identity Male 11/22/2018 10:40 AM FRESH WORK WRAPPER LAYER Sexual Orientation Straight 11/22/2018 10 :40 AM FRESH WORK WRAPPER LAYER Occupation Industry Job Start Date Job End [...] 9:20 AM PHYSICAL with Alex Rao MD [facility] ([facility] ) [address] [place] [phone] Routing refill request to provider for review/approval because: Labs not current: hgb a1c Christy CASTRO, RN documented in this encounter Plan of Treatment Upcoming Encounters Date Type Department Care Team (Late st Contact Info) Description 06/30/2025 Ancillary Procedure [address] [place] [address] Magdalena Fry MD [address] [place] [phone] 10/02/2025 Ancillary Procedure [place] [address] [place] [phone] Magdalena Fry MD [address] [place], [place] [phone] documented as of this encounter Visit Diagnoses Diagnosis Controlled type 2 diabetes mellitus without complication, without long-term current use of insulin (H) Essential hypertension with goal blood pressure less than 140/90 documented in this encounter Care Teams Algebra Tutor Relationship Specialty Start Date End Date Alex Rao MD PCP - General Internal Medicine 09/19/19 Alex Rao MD [address] [place], [place] 101381 Assigned PCP 02/26/20 03/20/21 Nate Leong MD [address] 575[address] Assigned Surgical Provider 08/17/20 11/07/22 Sharri Hdez MD [address] [place] [address] 101 [place], [place] 229565 Assigned Endocrinology Provider 12/16/20 03/16/24 Alex Rao MD [address] [place] [address] Assigned PCP 03/21/21 Alex Rao MD [address] [place] [address] Referring Physician Internal Medicine 04/02/22 Russell Agosto MD [address] [place] [address] Neurology 04/02/22 Magdalena Fry MD [address] [place] [address] 486 [place] [address] Assigned Heart and Vascular Provider 04/26/22 02/15/24 Doris Chaney [facility] [address] [address] Pharmacist Pharmacist 07/21/22 Doris Chaney [facility] [address] [address] Assigned MTM Pharmacist 07/26/2202/14 [place] [address] [address] Nephrology 05/14/23 documented as of this encounter
--- OUTSIDE RECORDS SUMMARY | 2025-04-25 01:40 | XMS_ITS | Encounter Summary ---
Author Organization [place] Address [address] [place] [address] Care Team Providers Care Operator And Truck Driver Name Role Phone Alex Rao MD Primary Care Provider [phone] Sharri Hdez MD Unavailable [phone] Alex Rao MD Unavailable [phone] Alex Rao MD Unavailable [phone] Russell Agosto MD Unavailable [phone] Magdalena Fry MD Unavailable Doris Chaney [facility] Unavailable [phone] Doris Chaney [facility] Unavailable [phone] Canelo Kelley MD Unavailable Encounter Details Date Type Department Care Team (Late st Contact Info) Description 12/04/2022 [facility] [address] [place] [address] Emilee Linares Social History Tobacco [...] AM CDT Legal Sex Male 4:10 AM PUBLIC HEALTH VETERINARIAN Gender Identity Male 11/22/2018 10:40 AM PUBLIC HEALTH VETERINARIAN Sexual Orientation Straight 11/22/2018 10 :40 AM PUBLIC HEALTH VETERINARIAN Occupation Industry Job Start Date Job 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 Unable to assess 12/03/2022 5:50 AM PUBLIC HEALTH VETERINARIAN documented as of this encounter Plan of Treatment Upcoming Encounters Date Type Department Care Team (Late st Contact Info) Description 06/30/2025 Ancillary Procedure [address] [phone] Magdalena Fry MD [address] [place] [address] [phone] 10/02/2025 Ancillary Procedure [address] [phone] Magdalena Fry MD [address] [place] [address] [phone] documented as of this encounter Visit Diagnoses Not on filedocumented in this encounter Additional Health Concerns Assessment Noted Time PHQ-9 Depression Total Score: 9 06/10/20 22 11:44 AM CDT documented as of this encounter Care Teams Operator And Truck Driver Relationship Specialty Start Date End Date Alex Rao MD PCP - General Internal Medicine 09/19/19 Sharri Hdez MD [address] [place] [address] Assigned Endocrinology Provider 12/16/20 03/16/24 Alex Rao MD [address] [facility] [place] [address] Assigned PCP 03/21/21 Alex Rao MD [address] [place] [place] [address] Referring Physician Internal Medicine 04/02/22 Russell Agosto MD [address] 4770[address] Neurology 04/02/22 Magdalena Fry MD [address] 673905 Assigned Heart and Vascular Provider 04/26/22 02/15/24 Doris Chaney [facility] [address] [phone] Pharmacist Pharmacist 07/21/22 Doris Chaney [facility] [address] [phone] Assigned MTM Pharmacist 07/26/2202/14 [place] [address] [address] Nephrology 05/14/23 documented as of this encounter
--- OUTSIDE RECORDS SUMMARY | 2025-04-25 01:40 | XMS_ITS | Encounter Summary ---
Author Organization [place] Address [address] [place] [address] Care Team Providers Care Cylinder Tester Name Role Phone Bill Bowens PA-C Primary Care Provider + Bill Bowens PA-C Unavailable [phone] Alex Rao MD Primary Care Provider [phone] Alex Rao MD Unavailable [phone] Beni Puga MD PhD Unavailable Alex Rao MD Unavailable [phone] Nate Leong MD Unavailable [phone] Sharri Hdez MD Unavailable [phone] Alex Rao MD Unavailable [phone] Alex Rao MD Unavailable Russell Agosto MD Unavailable [phone] Magdalena Fry MD Unavailable Doris Chaney [facility] Unavailable [phone] Doris Chaney [facility] Unavailable [phone] Canelo Kelley MD Unavailable Reason for Visit * Reason Onset Date Comments Medication Refill 06/23/2019 OLIVIA CONTOUR test strip Encounter Details Date Type Department Care Team (Late st Contact Info) Description 06/23/[address] [address] Antonio Celeste MD NO INFO [...] AM CDT Legal Sex Male 4:10 AM CRISIS NURSE Gender Identity Male 11/22/2018 10:40 AM CRISIS NURSE Sexual Orientation Straight 11/22/2018 10 :40 AM CRISIS NURSE Occupation Industry Job Start Date Job 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 Oksana Muñoz,[facility] * Telephone Encounter - Gabino Kulkarni - [...] st Contact Info) Description 06/30/2025 Ancillary Procedure [address] [phone] Magdalena Fry MD [address] [place] [address] [phone] 10/02/2025 Ancillary Procedure [address] [phone] Magdalena Fry MD [address] [place] [address] 137655 documented as of this encounter Visit Diagnoses Diagnosis Type 2 diabetes mellitus, controlled (H) Type II or unspecified type diabetes mellitus without mention of complication, not stated as uncontrolled documented in this encounter Care Teams Cylinder Tester Relationship Specialty Start Date End Date Bill Bowens PA-C PCP - General Physician Jig Builder Helper 02/20/15 09/18/19 Alex Rao MD [address] [place] [address] PCP - General Internal Medicine 09/19/19 Bill Bowens PA-C [address] [place] [address] Assigned PCP 01/14/15 12/03/19 Alex Rao MD [address] [place] [address] Assigned PCP 12/04/19 02/18/20 Beni Puga MD PhD [address] [place] [address] Assigned PCP 02/19/20 02/25/20 Alex Rao MD [address] [place] [address] Assigned PCP 02/26/20 03/20/21 Nate Leong MD [address] [address] Assigned Surgical Provider 08/17/20 11/07/22 Sharri Hdez MD 420 [facility] [address] [place] [address] Assigned Endocrinology Provider 12/16/20 03/16/24 Alex Rao MD [address] [place] [address] Assigned PCP 03/21/21 Alex Rao MD [address] [place] [address] Referring Physician Internal Medicine 04/02/22 Russell Agosto MD 420 [facility] [address] [place] [address] Neurology 04/02/22 Magdalena Fry MD [address] [place] [address] 486 [place] [address] Assigned Heart and Vascular Provider 04/26/22 02/15/24 Doris Chaney [facility] [address] [phone] Pharmacist Pharmacist 07/21/22 Doris Chaney [facility] [address] [phone] Assigned MTM Pharmacist 07/26/2202/14 [place] [address] [phone] Nephrology 05/14/23 documented as of this encounter
--- OUTSIDE RECORDS SUMMARY | 2025-04-25 01:40 | XMS_ITS | Encounter Summary ---
Author Organization [facility] Address [address] [place] [address] 15373 Care Team Providers Care Demolitionist Name Role Phone Alex Rao MD Primary Care Provider Nate Leong MD Unavailable [phone] Sharri Hdez MD Unavailable Alex Rao MD Unavailable [phone] Alex Rao MD Unavailable [phone] Russell Agosto MD Unavailable [phone] Magdalena Fry MD Unavailable Doris Chaney [facility] Unavailable Doris Chaney [facility] Unavailable Canelo Kelley MD Unavailable Reason for Visit * Reason Comments Medication Refill Encounter Details Date Type Department Care Team (Late st Contact Info) Description 07/03/2022 [facility] [address] [address] Alex Rao MD [address] [place] [address] Medication Refill Social History Tobacco Use [...] AM CDT Legal Sex Male 4:10 AM LEATHERSMITH Gender Identity Male 11/22/2018 10:40 AM LEATHERSMITH Sexual Orientation Straight 11/22/2018 10 :40 AM LEATHERSMITH Occupation Industry Job Start Date Job End [...] Contact Info) Description 06/30/2025 Ancillary Procedure [address] [address] Magdalena Fry MD [address] [place] [address] [phone] 10/02/2025 Ancillary Procedure [address] [address] Magdalena Fry MD [address] [place] [address] [phone] documented as of this encounter Visit Diagnoses Diagnosis Essential hypertension with goal blood pressure less than 140/90 documented in this encounter Additional Health Concerns Assessment Noted Time PHQ-9 Depression Total Score: 9 06/10/20 22 11:44 AM CDT documented as of this encounter Care Teams Demolitionist Relationship Specialty Start Date End Date Alex Rao MD PCP - General Internal Medicine 09/19/19 Nate Leong MD [address] [place], [place] 9[address] Assigned Surgical Provider 08/17/20 11/07/22 Sharri Hdez MD [facility] 101 [place] [address] Assigned Endocrinology Provider 12/16/20 03/16/24 Alex Rao MD 6320 [facility] [place], [place] [id number] Assigned PCP 03/21/21 Alex Rao MD 6320 [facility] [place], [place] 8[address] Referring Physician Internal Medicine 04/02/22 Russell Agosto MD [address] [place] [facility] 486 [place], [place] [address] Neurology 04/02/22 Magdalena Fry MD [address] [place] [facility] 486 [place], [place] 291765 Assigned Heart and Vascular Provider 04/26/22 02/15/24 Doris Chaney [facility] [address] [phone] Pharmacist Pharmacist 07/21/22 Doris Chaney [facility] [address] [place] [address] Assigned MTM Pharmacist 07/26/2202/14 [place] [address] [phone] Nephrology 05/14/23 documented as of this encounter
--- OUTSIDE RECORDS SUMMARY | 2025-04-25 01:40 | XMS_ITS | Encounter Summary ---
Author Organization [place] Address [address] [place] [address] Care Team Providers Care Owner Operator Tanker Truck Driver Name Role Phone Alex Rao MD Primary Care Provider Nate Leong MD Unavailable [phone] Sharri Hdez MD Unavailable Alex Rao MD Unavailable [phone] Alex Rao MD Unavailable [phone] Russell Agosto MD Unavailable [phone] Magdalena Fry MD Unavailable Doris Chaney [facility] Unavailable Doris Chaney [facility] Unavailable Canelo Kelley MD Unavailable Reason for Visit * Reason Comments Medication Refill Encounter Details Date Type Department Care Team (Late st Contact Info) Description 09/18/[address] [address] Alex Rao MD [address] [place] [address] Medication Refill Social History Tobacco Use [...] AM CDT Legal Sex Male 4:10 AM SOUND EFFECTS MANAGER Gender Identity Male 11/22/2018 10:40 AM SOUND EFFECTS MANAGER Sexual Orientation Straight 11/22/2018 10 :40 AM SOUND EFFECTS MANAGER Occupation Industry Job Start Date Job 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 No / Unsure 09/10/2022 9:31 AM SOUND EFFECTS MANAGER documented as of this encounter Plan of Treatment Upcoming Encounters Date Type Department Care Team (Late st Contact Info) Description 06/30/2025 Ancillary Procedure [address] [address] Magdalena Fry MD [address] [place] [address] [phone] 10/02/2025 Ancillary Procedure [address] [address] aMgdalena Fry MD [address] [place] [address] 295305 documented as of this encounter Visit Diagnoses Diagnosis Hyperlipidemia LDL goal <100 Other and unspecified hyperlipidemia documented in this encounter Additional Health Concerns Assessment Noted Time PHQ-9 Depression Total Score: 9 06/10/20 22 11:44 AM CDT documented as of this encounter Care Teams Owner Operator Tanker Truck Driver Relationship Specialty Start Date End Date Alex Rao MD PCP - General Internal Medicine 09/19/19 Nate Leong MD [address] [place], [place] 288645 Assigned Surgical Provider 08/17/20 11/07/22 Sharri Hdez MD 420 [facility] 101 [place], [place] 6[address] Assigned Endocrinology Provider 12/16/20 03/16/24 Alex Rao MD [address] [facility] [place], [place] 6[address] Assigned PCP 03/21/21 Alex Rao MD [address] [facility] [place] 645171 Referring Physician Internal Medicine 04/02/22 Russell Agosto MD 420 [facility] 486 [place], [place] 0[address] Neurology 04/02/22 Magdalena Fry MD [address] [place] [address] [facility] 486 [place], [place] 348575 Assigned Heart and Vascular Provider 04/26/22 02/15/24 Doris Chaney [facility] [address] [phone] Pharmacist Pharmacist 07/21/22 Doris Chaney [facility] [address] [phone] Assigned MTM Pharmacist 07/26/2202/14 [place] [address] [address] Nephrology 05/14/23 documented as of this encounter
--- OUTSIDE RECORDS SUMMARY | 2025-04-25 01:40 | XMS_ITS | Encounter Summary ---
Author Organization [place] Address [address] [place] [address] Care Team Providers Care Compliance Director Name Role Phone Antonio Celeste MD Primary Care Provider U nealsharon Bill Bowens PA-C Primary Care Provider + Bill Bowens PA-C Unavailable [phone] Bill Bowens PA-C Unavailable [phone] Alex Rao MD Primary Care Provider [phone] Alex Rao MD Unavailable [phone] Beni Puga MD PhD Unavailable Alex Rao MD Unavailable [phone] Nate Leong MD Unavailable [phone] Sharri Hdez MD Unavailable [phone] Alex Rao MD Unavailable Alex Rao MD Unavailable [phone] Russell Agosto MD Unavailable [phone] Magdalena Fry MD Unavailable Doris Chaney [facility] Unavailable [phone] Doris Chaney [facility] Unavailable [phone] Canelo Kelley MD Unavailable Encounter Details Date Type Department Care Team (Late st Contact Info) Description 03/13/2010 [facility] Social History Tobacco Use Types Packs/Day Years Used Date Smoking Tobacco: Former Cigarettes Q uit: 02/21/1974 Alcohol Use Standard Drinks/Week Comments Yes 0 (1 standard drink = 0.6 oz pur e alcohol) occasional Sex and Gender Information Value Date Recorded Sex Assigned at Male 07/18/2019 7:43 AM CDT Legal 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 Male 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 Gender Identity Male 11/22/2018 10:40 AM HOME HEALTH CARE SOCIAL WORKER Sexual Orientation Straight 11/22/2018 10 :40 AM HOME HEALTH CARE SOCIAL WORKER Occupation Industry Job Start Date Job 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- [employer] Not on file Not on file Not on file documented as of this encounter Plan of Treatment Upcoming Encounters Date Type Department Care Team (Late Contact Info) Description 06/30/2025 Ancillary Procedure [address] [address] Magdalena Fry MD [address] [place] [address] [phone] 10/02/2025 Ancillary Procedure [address] [address] Magdalena Fry MD [address] [place] [address] documented as of this encounter Visit Diagnoses Not on filedocumented in this encounter Care Teams Compliance Director Relationship Specialty Start Date End Date Antonio Celeste MD NO INFO AVAILABLE 08/25/2022 PCP - General 03/24/03 02/19/15 Bill Bowens PA-C NO INFO AVAILABLE 08/25/2022 PCP - General Physician Handcrew Foreman 02/20/15 09/18/19 Bill Bowens PA-C [address] [place] [address] PCP - Assigned PCP 01/14/15 12/28/18 Alex Rao MD [address] [place] [address] PCP - General Internal Medicine 09/19/19 Bill Bowens PA-C [address] [place] [address] Assigned PCP 01/14/15 12/03/19 Alex Rao MD 63[address] [facility] [place] [address] Assigned PCP 12/04/19 02/18/20 Beni Puga MD PhD [address] [facility] [place] [address] Assigned PCP 02/19/20 02/25/20 Alex Rao MD 63[address] [facility] [place] [address] Assigned PCP 02/26/20 03/20/21 Nate Leong MD [address] [place], [place] [address] Assigned Surgical Provider 08/17/20 11/07/22 Sharri Hdez MD 420 [facility] 101 [place], [place] 0[address] Assigned Endocrinology Provider 12/16/20 03/16/24 Alex Rao MD [address] [place] [address] Assigned PCP 03/21/21 Alex Rao MD [address] [place] [address] Referring Physician Internal Medicine 04/02/22 Russell Agosto MD [address] [address] Neurology 04/02/22 Magdalena Fry MD [address] [address] Assigned Heart and Vascular Provider 04/26/22 02/15/24 Doris Chaney [facility] [address] [place] [phone] Pharmacist Pharmacist 07/21/22 Doris Chaney [facility] [address] [phone] Assigned MTM Pharmacist 07/26/2202/14 [place] [address] [phone] Nephrology 05/14/23 documented as of this encounter
--- OUTSIDE RECORDS SUMMARY | 2025-04-25 01:40 | XMS_ITS | Encounter Summary ---
Author Organization [place] Address [address] [place] [address] Care Team Providers Care Sales And Service Change Leader Name Role Phone Antonio Celeste MD Primary Care Provider U nealsharon Bill Bowens PA-C Primary Care Provider + Bill Bowens PA-C Unavailable [phone] Bill Bowens PA-C Unavailable [phone] Alex Rao MD Primary Care Provider [phone] Alex Rao MD Unavailable Beni Puga MD PhD Unavailable Alex Rao MD Unavailable [phone] Nate Leong MD Unavailable [phone] Sharri Hdez MD Unavailable [phone] Alex Rao MD Unavailable Alex Rao MD Unavailable [phone] Russell Agosto MD Unavailable [phone] Magdalena Fry MD Unavailable Doris Chaney [facility] Unavailable [phone] Doris Chaney [facility] Unavailable [phone] Canelo Kelley MD Unavailable Reason for Visit * Reason Onset Date Comments MyChart Communication 11/06/2009 Encounter Details Date Type Department Care Team (Late st Contact Info) Description 11/06/2009 MyC Medical Advice [address] [address] Antonio Celeste MD NO INFO [...] AM CDT 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 Ok for glucose so he can check his machine against ours? EL TRUCK DRIVER documented in this encounter Plan of Treatment Upcoming Encounters Date Type Department Care Team (Late st Contact Info) Description 06/30/2025 Ancillary Procedure [address] [address] Magdalena Fry MD [address] [place] [address] 269855 10/02/2025 Ancillary Procedure [address] [place] [phone] Magdalena Fry MD 9[address] [place], [place] 158955 documented as of this encounter Visit Diagnoses Diagnosis DIABETES UNCOMPL ADULT-TYPE II- Primary Type II or unspecified type diabetes mellitus without mention of complication, not stated as uncontrolled documented in this encounter Care Teams Sales And Service Change Leader Relationship Specialty Start Date End Date Antonio Celeste MD NO INFO AVAILABLE 08/25/2022 PCP - General 03/24/03 02/19/15 Bill Bowens PA-C NO INFO AVAILABLE 08/25/2022 PCP - General Physician Computer Animator 02/20/15 09/18/19 Bill Bowens PA-C [address] [place] [address] PCP - Assigned PCP 01/14/15 12/28/18 Alex Rao MD [address] [place] [address] PCP - General Internal Medicine 09/19/19 Bill Bowens PA-C [address] [place] [address] Assigned PCP 01/14/15 12/03/19 Alex Rao MD [address] [place] [address] 423071 Assigned PCP 12/04/19 02/18/20 Beni Puga MD PhD [address] [place] [address] Assigned PCP 02/19/20 02/25/20 Alex Rao MD 6320 [facility] [place] [place] [address] Assigned PCP 02/26/20 03/20/21 Nate Leong MD [address] [address] Assigned Surgical Provider 08/17/20 11/07/22 Sharri Hdez MD [address] 260985 Assigned Endocrinology Provider 12/16/20 03/16/24 Alex Rao MD 6320 [facility] [address] Assigned PCP 03/21/21 Alex Rao MD [address] [facility] [place] [address] Referring Physician Internal Medicine 04/02/22 Russell Agosto MD [address] 255685 Neurology 04/02/22 Magdalena Fry MD [address] 135375 Assigned Heart and Vascular Provider 04/26/22 02/15/24 Doris Chaney, [facility] [address] [place] [phone] Pharmacist Pharmacist 07/21/22 Doris Chaney [facility] [address] [phone] Assigned MTM Pharmacist 07/26/2202/14 [place] [address] [phone] Nephrology 05/14/23 documented as of this encounter
--- OUTSIDE RECORDS SUMMARY | 2025-04-25 01:40 | XMS_ITS | Encounter Summary ---
Author Organization [place] Address [address] [place] [address] Care Team Providers Care Learning And Development Consultant Name Role Phone Antonio Celeste MD Primary Care Provider U nealsharon Bill Bowens PA-C Primary Care Provider + Bill Bowens PA-C Unavailable [phone] Bill Bowens PA-C Unavailable [phone] Alex Rao MD Primary Care Provider [phone] Alex Rao MD Unavailable [phone] Beni Puga MD PhD Unavailable Alex Rao MD Unavailable [phone] Nate Leong MD Unavailable [phone] Sharri Hdez MD Unavailable [phone] Alex Rao MD Unavailable [phone] Alex Rao MD Unavailable [phone] Russell Agosto MD Unavailable [phone] Magdaelna Fry MD Unavailable Doris Chanye [facility] Unavailable [phone] Doris Chaney [facility] Unavailable [phone] Canelo Kelley MD Unavailable Encounter Details Date Type Department Care Team (Late st Contact Info) Description 05/03/2009 MyC Medical 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- [employer] Not on file Not on file Not on file documented as of this encounter Plan of Treatment Upcoming Encounters Date Type Department Care Team (Late Contact Info) Description 06/30/2025 Ancillary Procedure [address] [address] Magdalena Fry MD [address] [place] [address] [phone] 10/02/2025 Ancillary Procedure [address] [address] Magdalena Fry MD [address] [place] [address] documented as of this encounter Visit Diagnoses Not on filedocumented in this encounter Care Teams Learning And Development Consultant Relationship Specialty Start Date End Date Antonio Celeste MD NO INFO AVAILABLE 08/25/2022 PCP - General 03/24/03 02/19/15 Bill Bowens PA-C NO INFO AVAILABLE 08/25/2022 PCP - General Physician Family And Consumer Sciences Professor 02/20/15 09/18/19 Bill Bowens PA-C [address] [place] [address] PCP - Assigned PCP 01/14/15 12/28/18 Alex Rao MD [address] [place] [address] PCP - General Internal Medicine 09/19/19 Bill Bowens PA-C [address] [place] [address] Assigned PCP 01/14/15 12/03/19 Alex Rao MD 6320 [facility] [place] [address] Assigned PCP 12/04/19 02/18/20 Beni Puga MD PhD 63[address] [facility] [place] [address] Assigned PCP 02/19/20 02/25/20 Alex Rao MD 6320 [facility] [place] [address] Assigned PCP 02/26/20 03/20/21 Nate Leong MD [address] [place], [place] [address] Assigned Surgical Provider 08/17/20 11/07/22 Sharri Hdez MD 420 [facility] 101 [place], [place] 8925[address] Assigned Endocrinology Provider 12/16/20 03/16/24 Alex Rao MD [address] [place] [address] Assigned PCP 03/21/21 Alex Rao MD [address] [place] [address] Referring Physician Internal Medicine 04/02/22 Russell Agosto MD [address] [address] Neurology 04/02/22 Magdalena Fry MD [address] [address] Assigned Heart and Vascular Provider 04/26/22 02/15/24 Doris Chaney [facility] [address] [phone] Pharmacist Pharmacist 07/21/22 Doris Chaney [facility] [address] [place] [phone] Assigned MTM Pharmacist 07/26/2202/14 [place] [address] [phone] Nephrology 05/14/23 documented as of this encounter
--- OUTSIDE RECORDS SUMMARY | 2025-04-25 01:40 | XMS_ITS | Encounter Summary ---
Author Organization [place] Address [address] [place] [address] Care Team Providers Care Forest Ranger Technician Name Role Phone Alex Rao MD Primary Care Provider Nate Leong MD Unavailable [phone] Sharri Hdez MD Unavailable Alex Rao MD Unavailable [phone] Alex Rao MD Unavailable [phone] Russell Agosto MD Unavailable [phone] aMgdalena Fry MD Unavailable Doris Chaney [facility] Unavailable Doris Chaney [facility] Unavailable Canelo Kelley MD Unavailable Reason for Visit * Reason Comments Medication Refill Encounter Details Date Type Department Care Team (Late st Contact Info) Description 10/15/[address] [address] Alex Rao MD [address] [place] [address] Medication Refill Social History Tobacco Use [...] AM CDT Legal Sex Male 4:10 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 Gender Identity Male 11/22/2018 10:40 AM ATOMIC 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 Sexual Orientation Straight 11/22/2018 10 :40 AM ATOMIC 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 Occupation Industry Job Start Date Job 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- [employer] Not on file Not on file Not on file documented as of this encounter Plan of Treatment Upcoming Encounters Date Type Department Care Team (Late st Contact Info) Description 06/30/2025 Ancillary Procedure [address] [phone] Magdalena Fry MD [address] [place] [address] [phone] 10/02/2025 Ancillary Procedure [address] [address] Magdalena Fry MD [address] [place] [address] [phone] documented as of this encounter Visit Diagnoses Diagnosis Type 2 diabetes mellitus without complication, without long-term current use of insulin (H) documented in this encounter Additional Health Concerns Assessment Noted Time PHQ-9 Depression Total Score: 9 06/10/20 22 11:44 AM CDT documented as of this encounter Care Teams Forest Ranger Technician Relationship Specialty Start Date End Date Alex Rao MD PCP - General Internal Medicine 09/19/19 Nate Leong MD [address] [place] [address] [place] [address] Assigned Surgical Provider 08/17/20 11/07/22 Sharri Hdez MD 420 [facility] 101 [place], [place] [address] Assigned Endocrinology Provider 12/16/20 03/16/24 Alex Rao MD [address] [place], [place] [address]88[address] Assigned PCP 03/21/21 Alex Rao MD [address] [place], [place] [phone] Referring Physician Internal Medicine 04/02/22 Russell Agosto MD [address] [place] [address] [facility] 486 [place], [place] 6[address] Neurology 04/02/22 Magdalena Fry MD [address] [place] [address] [facility] 486 [place], [place] [address] Assigned Heart and Vascular Provider 04/26/22 02/15/24 Doris Chaney [facility] [address] [phone] Pharmacist Pharmacist 07/21/22 Doris Chaney [facility] [address] [place] [phone] Assigned MTM Pharmacist 07/26/2202/14 [place] [address] [phone] Nephrology 05/14/23 documented as of this encounter
--- OUTSIDE RECORDS SUMMARY | 2025-04-25 01:40 | XMS_ITS | Data Portability ---
Author Organization [facility], [facility] Address [address] [place] [address] Care Team Providers Care Manager Of Finance Name Role Phone SHAHNAZ LANDRY Primary Care Provider [phone] [facility] [place] Primary Care Provid er Assessment Encounter Date [...] None recorded. Lab urinalysis, dipstick 2023 024 [facility], [address], [place], [address], 4 15:39:44 urinalysis, microscopic 2023 024 [facility], [address], [place], [address], 5 05:00:58 Referral None recorded. Procedures None recorded. Surgeries None recorded. Imaging None recorded. Medication Orders None recorded. Patient TargetsNo targets recorded. Patient Instructions Encounter Date Encounter Id Patient Instructions Last Modified By Organization Details Last Modified Time 06/20/2024 [id number] BPH/OAB -Patient with history of increased urinary [...] uriscan NEGATI VE negati ve Not Available [facility] [address] [facility] [address], [place], [address], 06/20/2024 15:39:44 06/20/20 24 06/20/2024 UA WITHO UT MICRO - CS URISC AN bilirubin - uriscan NEGATI VE mg/dL negati ve Not Available [facility] [address] [facility] [address], [place], [address], 06/20/2024 15:39:44 06/20/20 24 06/20/2024 UA WITHO UT MICRO - CS URISC AN urobilinogen - uriscan NORMAL mg/dL normal Not Available [facility] [address], [place], [address], 06/20/2024 15:39:44 06/20/20 24 06/20/2024 UA WITHO UT MICRO - CS URISC AN ketones - uriscan NEGATI VE mg/dL negati ve Not Available [facility] [address] [facility] [address], [place], [address], 06/20/2024 15:39:44 06/20/20 24 06/20/2024 UA WITHO UT MICRO - CS URISC AN protein - uriscan NEGATI VE mg/dL negati ve Not Available [facility] [address] [place] [address] 200, [place], [address], 06/20/2024 15:39:44 06/20/20 24 06/20/2024 UA WITHO UT MICRO - CS URISC AN nitrites - uriscan NEGATI VE negati ve Not Available [facility] [address] [place] [address] 200, [place], [address], 06/20/2024 15:39:44 06/20/20 24 06/20/2024 UA WITHO UT MICRO - CS URISC AN glucose - uriscan NEGATI VE mg/dL negati ve Not Available [facility] [address] [place] [address] 200, [place], [address], 06/20/2024 15:39:44 06/20/20 24 06/20/2024 UA WITHO UT MICRO - CS URISC AN pH - uriscan 5.00 5.00-9 .00 Not Available [facility] [address] [place] [address] 200, [place], [address], 06/20/2024 15:39:44 06/20/20 24 06/20/2024 UA WITHO UT MICRO - CS URISC AN sp. gravity - uriscan <=1.01 1.01-1 .03 Not Available [facility] [address] [place] [address] 200, [place], [address], 06/20/2024 15:39:44 06/20/20 24 06/20/2024 UA WITHO UT MICRO - CS URISC AN leukocytes - uriscan NEGATI VE negati ve Not Available [facility] [address] [place] [address] 200, [place], [address], 06/20/2024 15:39:44 06/20/20 24 06/20/2024 UA WITHO UT MICRO - CS URISC AN color - uriscan YELLOW lt. yellow ;yello w Not Available [facility] [address] [facility] [address], [place], [address], 06/20/2024 15:39:44 06/20/20 24 06/20/2024 UA WITHO UT MICRO - CS URISC AN clarity - uriscan CLEAR clear Not Available [facility] [address], [place], [address], 06/20/2024 15:39:44 06/20/20 24 06/20/2024 UA WITHO [...] for provi baudilio revie w. Not Available [facility] [address] [facility] [address], [place], [address], 06/20/2024 15:39:44 Result Notes None recorded. Problems Name Problem SNOMED Code Status Onset Date Resolution Date Notes Provider Name and Address Organization Details Recorded Time Hypertensive disorder 76141969 Active 2023 [facility] 4 15:23:46 Hypercholester olemia 76934966 Active 2023 [facility] 4 15:23:52 History of statin therapy 312464671 Active 2023 [facility] 4 15:24:02 Gastroesophage al reflux disease 613918358 Active 2023 [facility] 4 15:24:19 Diabetes mellitus 48417725 Active 2023 [facility] 4 15:24:34 Problem Notes None recorded. Procedures Surgical History Date Name Laterality Status Provider Name and Address Organization Details Recorded Time 06/20/20 24 COMPLEX VISIT completed Nitza Sparks PA-C [address] [facility],[address], [place], [address], [facility] 06/20/2024 17:15:25 06/20/20 24 Bladder Scan completed Haily De [facility] 06/20/2024 15:32:53 05/26/20 22 Diagnostic colonoscopy completed [...] Name and Address Organization Details Recorded Time 662832 Substance with sulfonami de structure and antibacte rial mechanism of action (substanc e) medicatio n facial swelling flushing rash Not available Not available Not available Not available 06/16/2024 43513 8003 SNOMED Not Available Health Note 19:29:10 607310 animal dander environme nt eye swelling respirato ry distress Not available Not available Not available 06/16/2024 13853 UNK Not Available Health Note 19:29:10 Medications [...] Address Organization Details Last Updated DateTime 06/20/2024 287977.87 g Haily De Jesus [facility] 06/20/2024 15:22:46 Date Recorded Body height Body mass index (BMI) Provider Name and Address Organization Details Last Updated DateTime 06/20/2024 180.34 cm 35.3 kg/m2 Not Available Health Note 15:22:25 Social History Question Answer Notes LastModified by [employer] Details LastModified Time Tobacco Smoking Status Former Smoker Not Available Health Note 06/16/2024 19:29:11 What Is Your Level Of Caffeine Consumption? Moderate [email or web address] Information not available 06/16/2024 How Much Tobacco Do You Chew? None [email or web address] Information not available 06/16/2024 When Did You Quit Smoking? 16+yearssince lastcigarette [email or web address] Information not available 06/20/2024 What Was The Date Of Your Most Recent Tobacco Screening? 06/20/2024 [email or web address] Information not available 06/16/2024 What Is Your Relationship Status? [email or web address] Information not available 06/16/2024 Are You Sexually Active? No [email or web address] Information not available 06/16/2024 Has Tobacco Cessation Counseling Been Provided? No [email or web address] Information not available 06/20/2024 How Many Years Have You Smoked Tobacco? 2 [email or web address] Information not available 06/16/2024 How Many Days In The Past Year Have You Consumed 5 Or More Drinks? 0 [email or web address] Information no t available 06/16/2024 Sex: Unknown Functional Status Question Answer Note LastModified by [employer] Details LastModified Time Do you use any illicit or recreational drugs? No [email or web address] Information not available 06/16/2024 Do you or have you ever used any other forms of tobacco or nicotine? No [email or web address] Information not available 06/20/2024 What is your level of alcohol consumption? None [email or web address] Information not available 06/20/2024 Do you or [...] SNOMED-CT Code Diagnosis ICD10 Code Diagnosis Note [id number] Nitza Sparks PA-C [facility] [address] [place] [address] 06/20/2024 15:19:43 06/21/2024 09:27:05 Lower urinary tract symptoms due to benign prostatic hypertrophy 8736995895 9101 N40.1 Increased frequency of urination 842525784 R35.0 Health Concerns Section Related Observation LastModified by Organization Detai ls LastModified Time None Recorded Concern Status LastModified by Organization Details LastModified Time None Recorded Advance Directives Directive None Recorded Payers Insurance Date Sequence Insurance Name Policy Number Policy Rodríguez Covered Member ID Rodríguez Member ID Guarantor Name 06/17/2024 2 [place] [employer] Pillo Cardenas [id number] Pillo Cardenas 06/29/2024 1 [place] COST [id number] Pillo Cardenas [id number] Pillo Cardenas Notes Date Note Type Note [...] PMHx: CKD, DM, 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 Testosterone has been very low since then. Currently seeing an angular js developer in regards to testosterone PVR: 44mlIPSS: 23 Nitza Sparks PA-C [address] [place] [address],[address], [place], [address], [facility] 06/20/2024 17:15:41
--- OUTSIDE RECORDS SUMMARY | 2025-04-25 01:40 | XMS_ITS | Clinical Summary ---
Author Organization [facility] Address [address] [place] [address] Care Team Providers Care Dishroom Attendant Name Role Phone Unavailable Primary Care Provider Unavailabl e Source Comments You are receiving this document as you are listed as the primary care provider,follow-up provider, or the patient has been referred to you for consultation.This is in compliance with the Medicare and[facility] EHR Incentive Program,which states Providers who transition their patient to another setting of careor provider of care or refers their patient to another provider of care shouldprovide summary care record for each transition of care or referral. [place] Allergies Active Allergy Reactions Criticality Noted Date [...] Take 50 mg by mouth daily. 04/08/20 22 Active metFORMIN XR (GLUCOPHAGE XR) 500 MG [...] patient's age to complete this topic Insurance [facility] MEDICARE ADVANTAGE
--- OUTSIDE RECORDS SUMMARY | 2025-04-25 01:40 | XMS_ITS | Encounter Summary ---
Author Organization [facility] Address [address] [place] [address] Care Team Providers Care Retail Service Specialist Name Role Phone Antonio Celeste MD Primary Care Provider U nealsharon Bill Bowens PA-C Primary Care Provider + Bill Bowens PA-C Unavailable [phone] Bill Bowens PA-C Unavailable [phone] Alex Rao MD Primary Care Provider [phone] Alex Rao MD Unavailable [phone] Beni Puga MD PhD Unavailable Alex Rao MD Unavailable [phone] Nate Leong MD Unavailable [phone] Sharri Hdez MD Unavailable [phone] Alex Rao MD Unavailable [phone] Alex Rao MD Unavailable [phone] Russell Agosto MD Unavailable [phone] Magdalena Fry MD Unavailable Doris Chaney [facility] Unavailable [phone] Doris Chaney [facility] Unavailable [phone] Canelo Kelley MD Unavailable Encounter Details Date Type Department Care Team (Late st Contact Info) Description 06/18/2010 [facility] Social History Tobacco Use Types Packs/Day Years Used Date Smoking Tobacco: Former Cigarettes Q uit: 02/21/1974 Alcohol Use Standard Drinks/Week Comments Yes 0 (1 standard drink = 0.6 oz pur e alcohol) occasional Sex and Gender Information Value Date Recorded Sex Assigned at Male 07/18/2019 7:43 AM CDT Legal Sex Male 4:10 AM SISTER SUPERIOR Gender Identity Male 11/22/2018 10:40 AM SISTER SUPERIOR Sexual Orientation Straight 11/22/2018 10 :40 AM SISTER SUPERIOR Occupation Industry Job Start Date Job 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- [employer] Not on file Not on file Not on file documented as of this encounter Plan of Treatment Upcoming Encounters Date Type Department Care Team (Late Contact Info) Description 06/30/2025 Ancillary Procedure [address] [address] Magdalena Fry MD [address] [place] [address] 10/02/2025 Ancillary Procedure [address] [address] Magdalena Fry MD [address] [place] [address] documented as of this encounter Visit Diagnoses Not on filedocumented in this encounter Care Teams Retail Service Specialist Relationship Specialty Start Date End Date Antonio Celeste MD NO INFO AVAILABLE 08/25/2022 PCP - General 03/24/03 02/19/15 Bill Bowens PA-C NO INFO AVAILABLE 08/25/2022 PCP - General Physician Touring Production Manager 02/20/15 09/18/19 Bill Bowens PA-C [address] [place] [id number] PCP - Assigned PCP 01/14/15 12/28/18 Alex Rao MD [address] [place] [address] PCP - General Internal Medicine 09/19/19 Bill Bowens PA-C [address] [place] [address] Assigned PCP 01/14/15 12/03/19 Alex Rao MD [address] [facility] [address] Assigned PCP 12/04/19 02/18/20 Beni Puga MD PhD [address] [facility] [address] Assigned PCP 02/19/20 02/25/20 Alex Rao MD [address] [facility] [place] [address] Assigned PCP 02/26/20 03/20/21 Nate Leong MD [address] [place], [place] [address] Assigned Surgical Provider 08/17/20 11/07/22 Sharri Hdez MD [address] [facility] [address] [place], [place] [address] Assigned Endocrinology Provider 12/16/20 03/16/24 Alex Rao MD [address] [place] [address] Assigned PCP 03/21/21 Alex Rao MD [address] [place] [address] Referring Physician Internal Medicine 04/02/22 Russell Agosto MD [address] [address] Neurology 04/02/22 Magdalena Fry MD [address] [address] Assigned Heart and Vascular Provider 04/26/22 02/15/24 Doris Chaney [facility] [address] [place] [phone] Pharmacist Pharmacist 07/21/22 Doris Chaney [facility] [address] [place] [phone] Assigned MTM Pharmacist 07/26/2202/14 [place] [address] [place] [phone] Nephrology 05/14/23 documented as of this encounter
--- OUTSIDE RECORDS SUMMARY | 2025-04-25 01:40 | XMS_ITS | Encounter Summary ---
Author Organization [facility] Address [address] [place] [address] Care Team Providers Care Brusher Tender Name Role Phone Alex Rao MD Primary Care Provider [phone] Sharri Hdez MD Unavailable [phone] Alex Rao MD Unavailable [phone] Alex Rao MD Unavailable [phone] Russell Agosto MD Unavailable [phone] Magdalena Fry MD Unavailable Doris Chaney [facility] Unavailable [phone] Doris Chaney [facility] Unavailable [phone] Canelo Kelley MD Unavailable Encounter Details Date Type Department Care Team (Late st Contact Info) Description 01/16/2023 [facility] [place] [facility] [address] 1st [place] [address] [place] Social History Tobacco [...] CDT Legal Sex Male 4:10 AM HUMAN RELATIONS TEACHER Gender Identity Male 11/22/2018 10:40 AM HUMAN RELATIONS TEACHER Sexual Orientation Straight 11/22/2018 10 :40 AM HUMAN RELATIONS TEACHER Occupation Industry Job Start Date Job 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- [employer] Not on file Not on file Not on file documented as of this encounter Plan of Treatment Upcoming Encounters Date Type Department Care Team (Late st Contact Info) Description 06/30/2025 Ancillary Procedure [address] [phone] Magdalena Fry MD [address] [place] [phone] 10/02/2025 Ancillary Procedure [address] [phone] Magdalena Fry MD [address] [place] [address] [phone] documented as of this encounter Visit Diagnoses Not on filedocumented in this encounter Additional Health Concerns Assessment Noted Time PHQ-9 Depression Total Score: 9 06/10/20 22 11:44 AM CDT documented as of this encounter Care Teams Brusher Tender Relationship Specialty Start Date End Date Alex Rao MD PCP - General Internal Medicine 09/19/19 Sharri Hdez MD [address] [place] [address] [address] [place] [address] Assigned Endocrinology Provider 12/16/20 03/16/24 Alex Rao MD [address] [place] [address] Assigned PCP 03/21/21 Alex Rao MD [address] [place] [address] Referring Physician Internal Medicine 04/02/22 Russell Agosto MD [address] [address] Neurology 04/02/22 Magdalena Fry MD [address] [address] Assigned Heart and Vascular Provider 04/26/22 02/15/24 Doris Chaney [facility] [address] [place] [phone] Pharmacist Pharmacist 07/21/22 Doris Chaney [facility] [address] [place] [phone] Assigned MTM Pharmacist 07/26/2202/14 [place] [address] [place] [phone] Nephrology 05/14/23 documented as of this encounter
--- OUTSIDE RECORDS SUMMARY | 2025-04-25 01:40 | XMS_ITS | Encounter Summary ---
Author Organization [facility] Address [address] [place] [address] Care Team Providers Care Motorized Squad Sergeant Name Role Phone Alex Rao MD Primary Care Provider [phone] Sharri Hdez MD Unavailable [phone] Alex Rao MD Unavailable [phone] Alex Rao MD Unavailable [phone] Russell Agosto MD Unavailable [phone] Magdalena Fry MD Unavailable Doris Chaney [facility] Unavailable [phone] Doris Chaney [facility] Unavailable [phone] Canelo Kelley MD Unavailable Encounter Details Date Type Department Care Team (Late st Contact Info) Description 03/06/2023 [facility] [place] Medical Advice [facility] [address] 3rd [place] [address] Emilee Linares Social History Tobacco [...] AM CDT Legal Sex Male 4:10 AM KNOT CUTTER Gender Identity Male 11/22/2018 10:40 AM KNOT CUTTER Sexual Orientation Straight 11/22/2018 10 :40 AM KNOT CUTTER Occupation Industry Job Start Date Job End [...] st Contact Info) Description 06/30/2025 Ancillary Procedure [address] [address] Magdalena Fry MD [address] [place] [address] 10/02/2025 Ancillary Procedure [address] [address] Magdalena Fry MD [address] [place] [address] documented as of this encounter Visit Diagnoses Not on filedocumented in this encounter Additional Health Concerns Assessment Noted Time PHQ-9 Depression Total Score: 9 06/10/20 22 11:44 AM CDT documented as of this encounter Care Teams Motorized Squad Sergeant Relationship Specialty Start Date End Date Alex Rao MD PCP - General Internal Medicine 09/19/19 Sharri Hdez MD [address] [place] [address]28985 Assigned Endocrinology Provider 12/16/20 03/16/24 Alex Rao MD [address] [place] [address] Assigned PCP 03/21/21 Alex Rao MD [address] [place] [address] Referring Physician Internal Medicine 04/02/22 Russell Agosto MD [address] [address]87[address] Neurology 04/02/22 Magdalena Fry MD [address] [address] Assigned Heart and Vascular Provider 04/26/22 02/15/24 Doris Chaney [facility] [address] [place] [phone] Pharmacist Pharmacist 07/21/22 Doris Chaney [facility] [address] [place] [phone] Assigned MTM Pharmacist 07/26/2202/14 [place] [address] [place] [phone] Nephrology 05/14/23 documented as of this encounter
--- OUTSIDE RECORDS SUMMARY | 2025-04-25 01:40 | XMS_ITS | Encounter Summary ---
Author Organization [facility] Address [address] [place] [address] Care Team Providers Care Beaver Trapper Name Role Phone Alex Rao MD Primary Care Provider Nate Leong MD Unavailable [phone] Sharri Hdez MD Unavailable Alex Rao MD Unavailable [phone] Alex Rao MD Unavailable [phone] Russell Agosto MD Unavailable [phone] Magdalena Fry MD Unavailable Doris Chaney [facility] Unavailable Doris Chaney [facility] Unavailable Canelo Kelley MD Unavailable Reason for Visit * Reason Comments Medication Refill Encounter Details Date Type Department Care Team (Late st Contact Info) Description 09/04/[address] [address] Alex Rao MD [address] [place] [address] Medication Refill Social History Tobacco Use [...] AM CDT Legal Sex Male 4:10 AM COMPUTER SYSTEMS INFORMATION DIRECTOR Gender Identity Male 11/22/2018 10:40 AM COMPUTER SYSTEMS INFORMATION DIRECTOR Sexual Orientation Straight 11/22/2018 10 :40 AM COMPUTER SYSTEMS INFORMATION DIRECTOR Occupation Industry Job Start Date Job 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 and other lower urinary tract symptoms (LUTS) documented in this encounter Additional Health Concerns Assessment Noted Time PHQ-9 Depression Total Score: 9 06/10/20 22 11:44 AM CDT documented as of this encounter Care Teams Beaver Trapper Relationship Specialty Start Date End Date Alex Rao MD PCP - General Internal Medicine 11/25/19 Nate Leong MD [address] [address] Assigned Surgical Provider 08/17/20 11/07/22 Sharri Hdez MD [address] [place] [facility] [address] [place], [place] [address] Assigned Endocrinology Provider 12/16/20 03/16/24 Alex Rao MD [address] [place], [place] [phone] Assigned PCP 03/21/21 Alex Rao MD [address] [place], [place] [address] Referring Physician Internal Medicine 04/02/22 Russell Agosto MD [address] [facility] [address] [facility] [address] [place], [place] [address] Neurology 04/02/22 Magdalena Fry MD [address] [facility] [address] [facility] [address] [place], [place] [address] Assigned Heart and Vascular Provider 04/26/22 02/15/24 Doris Chaney [facility] [address] [place] [phone] Pharmacist Pharmacist 07/21/22 Doris Chaney [facility] [address] [place] [phone] Assigned MTM Pharmacist 07/26/2202/14 [place] [address] [place] [place] [address] Nephrology 05/14/23 documented as of this encounter
--- OUTSIDE RECORDS SUMMARY | 2025-04-25 01:40 | XMS_ITS | Encounter Summary ---
Author Organization [place] Address [facility] [place] [address] Care Team Providers Care Binder Folder Operator Name Role Phone Alex Rao MD Primary Care Provider [phone] Nate Leong MD Unavailable [phone] Sharri Hdez MD Unavailable [phone] Alex Rao MD Unavailable [phone] Alex Rao MD Unavailable [phone] Russell Agosto MD Unavailable [phone] Magdalena Fry MD Unavailable Doris Chaney [facility] Unavailable Doris Chaney [facility] Unavailable Canelo Kelley MD Unavailable Encounter Details Date Type Department Care Team (Late st Contact Info) Description 09/15/2022 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 No / Unsure 09/10/2022 9:31 AM SUPERVISOR ASSEMBLY ROOM documented as of this encounter Plan of Treatment Upcoming Encounters Date Type Department Care Team (Late st Contact Info) Description 06/30/2025 Ancillary Procedure [address] [address] Magdalena Fry MD [address] [place] [address] 987915 10/02/2025 Ancillary Procedure [address] [address] Magdalena Fry MD [address] [place] [address] 734475 documented as of this encounter Visit Diagnoses Not on filedocumented in this encounter Additional Health Concerns Assessment Noted Time PHQ-9 Depression Total Score: 9 06/10/20 22 11:44 AM CDT documented as of this encounter Care Teams Binder Folder Operator Relationship Specialty Start Date End Date Alex Rao MD PCP - General Internal Medicine 09/19/19 Nate Leong MD [address] [place] [address] Assigned Surgical Provider 08/17/20 11/07/22 Sharri Hdez MD [address] [facility] [address] [place] [address] Assigned Endocrinology Provider 12/16/20 03/16/24 Alex Rao MD [address] [place], [place] 354[address] Assigned PCP 03/21/21 Alex Rao MD [address] [place], [place] 0210[address] Referring Physician Internal Medicine 04/02/22 Russell Agosto MD [address] [facility] [address] [place], [place] 114405 Neurology 04/02/22 Magdalena Fry MD [address] [facility] [address] [place], [place] 759535 Assigned Heart and Vascular Provider 04/26/22 02/15/24 Doris Chaney [facility] [address] [phone] Pharmacist Pharmacist 07/21/22 Doris Chaney [facility] [address] [address] Assigned MTM Pharmacist 07/26/2202/14 [place] [address] [address] Nephrology 05/14/23 documented as of this encounter
--- OUTSIDE RECORDS SUMMARY | 2025-04-25 01:40 | XMS_ITS | Encounter Summary ---
Author Organization [place] Address [facility] [place] [address] Care Team Providers Care Beater Out Name Role Phone Alex Rao MD Primary Care Provider [phone] Nate Leong MD Unavailable [phone] Sharri Hdez MD Unavailable [phone] Alex Rao MD Unavailable [phone] Alex Rao MD Unavailable [phone] Russell Agosto MD Unavailable [phone] Magdalena Fry MD Unavailable Doris Chaney [facility] Unavailable Doris Chaney [facility] Unavailable [phone] Canelo Kelley MD Unavailable Encounter Details Date Type Department Care Team (Late st Contact Info) Description 08/18/2022 [facility] [address] [facility] [address] [place] [address] Doris Chaney, [facility] [address] [place] [address] Social History Tobacco Use Types [...] AM CDT Legal Sex Male 4:10 AM LUMP MAKER Gender Identity Male 11/22/2018 10:40 AM LUMP MAKER Sexual Orientation Straight 11/22/2018 10 :40 AM LUMP MAKER Occupation Industry Job Start Date Job [...] st Contact Info) Description 06/30/2025 Ancillary Procedure [address] [address] Magdalena Fry MD [address] [place] [address] 377075 10/02/2025 Ancillary Procedure [address] [address] Magdalena Fry MD [address] [place] [address] 132225 documented as of this encounter Visit Diagnoses Not on filedocumented in this encounter Additional Health Concerns Assessment Noted Time PHQ-9 Depression Total Score: 9 06/10/20 22 11:44 AM CDT documented as of this encounter Care Teams Beater Out Relationship Specialty Start Date End Date Alex Rao MD PCP - General Internal Medicine 09/19/19 Nate Leong MD [address] [place] [address] Assigned Surgical Provider 08/17/20 11/07/22 Sharri Hdez MD [address] [facility] [place] [facility] [address] [place] [address] Assigned Endocrinology Provider 12/16/20 03/16/24 Alex Rao MD [address] [place], [place] 5395[address] Assigned PCP 03/21/21 Alex Rao MD [address] [place], [place] 8775[address] Referring Physician Internal Medicine 04/02/22 Russell Agosto MD 420 [facility] 486 [place], [place] 844995 Neurology 04/02/22 Magdalena Fry MD [address] [facility] [address] [place], [place] 700985 Assigned Heart and Vascular Provider 04/26/22 02/15/24 Doris Chaney [facility] [address] [phone] Pharmacist Pharmacist 07/21/22 Doris Chaney [facility] [address] [address] Assigned MTM Pharmacist 07/26/2202/14 [place] [address] [phone] Nephrology 05/14/23 documented as of this encounter
--- OUTSIDE RECORDS SUMMARY | 2025-04-25 01:40 | XMS_ITS | Encounter Summary ---
Author Organization [place] Address [address] [place] [address] Care Team Providers Care Associate Pastor Name Role Phone Alex Rao MD Primary Care Provider Nate Leong MD Unavailable [phone] Sharri Hdez MD Unavailable [phone] Alex Rao MD Unavailable [phone] Alex Rao MD Unavailable [phone] Russell Agosto MD Unavailable [phone] Magdalena Fry MD Unavailable Doris Chaney [facility] Unavailable Doris Chaney [facility] Unavailable Canelo Kelley MD Unavailable Reason for Visit * Reason Comments Medication Refill Encounter Details Date Type Department Care Team (Late st Contact Info) Description [facility] [address] [address] Alex Rao MD [address] [place] [address] Medication Refill Social History Tobacco Use [...] AM CDT Legal Sex Male 4:10 AM TEXTILE COLORIST FORMULATOR Gender Identity Male 11/22/2018 10:40 AM TEXTILE COLORIST FORMULATOR Sexual Orientation Straight 11/22/2018 10 :40 AM TEXTILE COLORIST FORMULATOR Occupation Industry Job Start Date Job End [...] Contact Info) Description 06/30/2025 Ancillary Procedure [address] [address] Magdalena Fry MD [address] [place] [address] 707475 10/02/2025 Ancillary Procedure [address] [address] Magdalena Fry MD [address] [place] [address] 222105 documented as of this encounter Visit Diagnoses Diagnosis Essential hypertension with goal blood pressure less than 140/90 documented in this encounter Additional Health Concerns Assessment Noted Time PHQ-9 Depression Total Score: 9 06/10/20 22 11:44 AM CDT documented as of this encounter Care Teams Associate Pastor Relationship Specialty Start Date End Date Alex Rao MD PCP - General Internal Medicine 09/19/19 Nate Leong MD [address] [place], [place] 395[address] Assigned Surgical Provider 08/17/20 11/07/22 Sharri Hdez MD 420 [facility] 101 [place] [address] Assigned Endocrinology Provider 12/16/20 03/16/24 Alex Rao MD [facility] [facility] [place], [place] 530083[address] Assigned PCP 03/21/21 Alex Rao MD [address] [facility] [place] [place] 854[address] Referring Physician Internal Medicine 04/02/22 Russell Agotso MD [address] [facility] 486 [place], [place] 8540[address] Neurology 04/02/22 Magdalena Fry MD [address] [facility] [address] [place], [place] 214175 Assigned Heart and Vascular Provider 04/26/22 02/15/24 Doris Chaney [facility] [address] [phone] Pharmacist Pharmacist 07/21/22 Doris Chaney [facility] [address] [address] Assigned MTM Pharmacist 07/26/2202/14 [place] [address] [phone] Nephrology 05/14/23 documented as of this encounter
--- OUTSIDE RECORDS SUMMARY | 2025-04-25 01:40 | XMS_ITS | Encounter Summary ---
Author Organization [place] Address [address] [place] [address] Care Team Providers Care Pot Sander Name Role Phone Alex Rao MD Primary Care Provider [phone] Sharri Hdez MD Unavailable [phone] Alex Rao MD Unavailable [phone] Alex Rao MD Unavailable [phone] Russell Agosto MD Unavailable [phone] Magdalena Fry MD Unavailable Doris Chaney [facility] Unavailable [phone] Doris Chaney [facility] Unavailable Canelo Kelley MD Unavailable Reason for Visit * Reason Comments Medication Refill Encounter Details Date Type Department Care Team (Late st Contact Info) Description 11/30/[address] [address] Alex Rao MD [address] [place] [address] Medication Refill Social History Tobacco Use [...] AM CDT Legal Sex Male 4:10 AM REDUCTION FURNACE OPERATOR HELPER Gender Identity Male 11/22/2018 10:40 AM REDUCTION FURNACE OPERATOR HELPER Sexual Orientation Straight 11/22/2018 10 :40 AM REDUCTION FURNACE OPERATOR HELPER Occupation Industry Job Start Date Job 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 Unable to assess 12/03/2022 5:50 AM REDUCTION FURNACE OPERATOR HELPER documented as of this encounter Miscellaneous Notes * Telephone Encounter - Katherin Blackmon CMA - 12/09/2022 9:58 AM CST Have not heard back from pt. Unable to close encounter until med is approved or denied. Will send back to provider CTION FURNACE OPERATOR HELPER * Telephone Encounter - Caitlin Martinez - 12/01/2022 2:23 PM CST Called pt and LVM. Also sent [employer] message. CTION FURNACE OPERATOR HELPER * Telephone Encounter - Beni Puga MD PhD - 12/01/2022 12:23 PM CST This was not prescribed by Dr. Rao in the past. Please check with patient if he has a urologist who prescribed this for him before. CTION FURNACE OPERATOR HELPER documented in this encounter Plan of Treatment Upcoming Encounters Date Type Department Care Team (Late st Contact Info) Description 06/30/2025 Ancillary Procedure [address] [place] [address] Magdalena Fry MD [address] [place] [address] 10/02/2025 Ancillary Procedure [facility] [address] [facility] [address] [place] [phone] Magdalena Fry MD [address] [place] [address] 646185 documented as of this encounter Visit Diagnoses Diagnosis BPH with obstruction/lower urinary tract symptoms- Primary Hypertrophy of prostate with urinary obstruction and other lower urinary tract symptoms (LUTS) documented in this encounter Additional Health Concerns Assessment Noted Time PHQ-9 Depression Total Score: 9 06/10/20 11:44 AM CDT documented as of this encounter Care Teams Pot Sander Relationship Specialty Start Date End Date Alex Rao MD PCP - General Internal Medicine 09/19/19 Sharri Hdez MD [address] [place] [address] 101 [place] [address] Assigned Endocrinology Provider 12/16/20 03/16/24 Alex Rao MD [address] [place], [place] 306111 Assigned PCP 03/21/21 Alex Rao MD [address] [place] [address] Referring Physician Internal Medicine 04/02/22 Russell Agosto MD [address] [place] [address] 318895 Neurology 04/02/22 Magdalena Fry MD [address] [place] [address] Assigned Heart and Vascular Provider 04/26/22 02/15/24 Doris Chaney [facility] [address] [address] Pharmacist Pharmacist 07/21/22 Doris Chaney [facility] [address] [phone] Assigned MTM Pharmacist 07/26/2202/14 [place] [address] [phone] Nephrology 05/14/23 documented as of this encounter
--- OUTSIDE RECORDS SUMMARY | 2025-04-25 01:40 | XMS_ITS | Encounter Summary ---
Author Organization [place] Address [address] [place] [address] Care Team Providers Care Support Coordinator Name Role Phone Antonio Celeste MD Primary Care Provider U nealsharon Bill Bowens PA-C Primary Care Provider + Bill Bowens PA-C Unavailable [phone] Bill Bowens PA-C Unavailable [phone] Alex Rao MD Primary Care Provider [phone] Alex Rao MD Unavailable [phone] Beni Puga MD PhD Unavailable Alex Rao MD Unavailable [phone] Nate Leong MD Unavailable Sharri Hdez MD Unavailable [phone] Alex Rao MD Unavailable [phone] Alex Rao MD Unavailable [phone] Russell Agosto MD Unavailable [phone] Magdalena Fry MD Unavailable Doris Chaney [facility] Unavailable [phone] Doris Chaney [facility] Unavailable [phone] Canelo Kelley MD Unavailable Encounter Details Date Type Department Care Team (Late st Contact Info) Description 05/05/2011 My[facility] Medical Advice [address] [address] Taiwo Yañez Social History Tobacco [...] AM CDT Legal Sex Male 4:10 AM ONLINE ACTIVIST Gender Identity Male 11/22/2018 10:40 AM ONLINE ACTIVIST Sexual Orientation Straight 11/22/2018 10 :40 AM ONLINE ACTIVIST Occupation Industry Job Start Date Job 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- [employer] Not on file Not on file Not on file documented as of this encounter Plan of Treatment Upcoming Encounters Date Type Department Care Team (Late st Contact Info) Description 06/30/2025 Ancillary Procedure [address] [address] Magdalena Fry MD [address] [place] [address] 10/02/2025 Ancillary Procedure [address] [phone] Magdalena Fry MD [address] [place] [address] [phone] documented as of this encounter Visit Diagnoses Not on filedocumented in this encounter Care Teams Support Coordinator Relationship Specialty Start Date End Date Antonio Celeste MD NO INFO AVAILABLE 08/25/2022 PCP - General 03/24/03 02/19/15 Bill Bowens PA-C NO INFO AVAILABLE 08/25/2022 PCP - General Physician Mobile Sales Assistant 02/20/15 09/18/19 Bill Bowens PA-C [address] [address] PCP - Assigned PCP 01/14/15 12/28/18 Alex Rao MD [address] [address] PCP - General Internal Medicine 09/19/19 Bill Bowens PA-C [address] [address] Assigned PCP 01/14/15 12/03/19 Alex Rao MD [address] [place] [address] Assigned PCP 12/04/19 02/18/20 Beni Puga MD PhD [address] [facility] [place] [address] Assigned PCP 02/19/20 02/25/20 Alex Rao MD [address] [place] [address] Assigned PCP 02/26/20 03/20/21 Nate Leong MD [address] [place] [address] Assigned Surgical Provider 08/17/20 11/07/22 Sharri Hdez MD 420 [facility] 101 [place] [address] Assigned Endocrinology Provider 12/16/20 03/16/24 Alex Rao MD [address] [facility] [place] [address] Assigned PCP 03/21/21 Alex Rao MD [address] [facility] [place] [address] Referring Physician Internal Medicine 04/02/22 Russell Agosto MD 420 [facility] 486 [place] [address] Neurology 04/02/22 Magdalena Fry MD [address] [place] [address] Assigned Heart and Vascular Provider 04/26/22 02/15/24 Doris Chaney [facility] [address] [phone] Pharmacist Pharmacist 07/21/22 Doris Chaney [facility] [address] [phone] Assigned MTM Pharmacist 07/26/2202/14 [place] [address] [phone] Nephrology 05/14/23 documented as of this encounter
--- OUTSIDE RECORDS SUMMARY | 2025-04-25 01:40 | XMS_ITS | Encounter Summary ---
Author Organization [place] Address [address] [place] [address] Care Team Providers Care Collections Technician Name Role Phone Antonio Celeste MD Primary Care Provider U nealsharon Bill Bowens PA-C Primary Care Provider + Bill Bowens PA-C Unavailable [phone] Bill Bowens PA-C Unavailable [phone] Alex Rao MD Primary Care Provider [phone] Alex Rao MD Unavailable [phone] Beni Puga MD PhD Unavailable Alex Rao MD Unavailable [phone] Nate Leong MD Unavailable [phone] Sharri Hdez MD Unavailable [phone] Alxe Rao MD Unavailable [phone] Alex Rao MD Unavailable [phone] Russell Agosto MD Unavailable [phone] Magdalena Fry MD Unavailable Doris Chaney [facility] Unavailable [phone] Doris Chaney [facility] Unavailable [phone] Canelo Kelley MD Unavailable Encounter Details Date Type Department Care Team (Late st Contact Info) Description 04/16/2011 [facility] Medical Advice [email or web address] Social History Tobacco Use Types Packs/Day Years Used Date Smoking Tobacco: Former Cigarettes Q uit: 02/21/1974 Alcohol Use Standard Drinks/Week Comments Yes 0 (1 standard drink = 0.6 oz pure alcohol) occasional; 2-12 beers per weekends Sex and Gender Information Value Date Recorded Sex Assigned at Male 07/18/2019 7:43 AM CDT Legal Sex Male 4:10 AM 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 ROLLING 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 Gender Identity Male 11/22/2018 10:40 AM GLASS ROLLING MACHINE OPERATOR Sexual Orientation Straight 11/22/2018 10 :40 AM GLASS ROLLING MACHINE OPERATOR Occupation Industry Job Start Date Job 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- [employer] Not on file Not on file Not on file documented as of this encounter Plan of Treatment Upcoming Encounters Date Type Department Care Team (Late st Contact Info) Description 06/30/2025 Ancillary Procedure [address] [address] Magdalena Fry MD [address] [place] [address] [phone] 10/02/2025 Ancillary Procedure [address] [address] Magdalena Fry MD [address] [place] [address] documented as of this encounter Visit Diagnoses Not on filedocumented in this encounter Care Teams Collections Technician Relationship Specialty Start Date End Date Antonio Celeste MD NO INFO AVAILABLE 08/25/2022 PCP - General 03/24/03 02/19/15 Bill Bowens PA-C NO INFO AVAILABLE 08/25/2022 PCP - General Physician Electron Beam Welding Machine Operator 02/20/15 09/18/19 Bill Bowens PA-C [address] [address] PCP - Assigned PCP 01/14/15 12/28/18 Alex Rao MD [address] [address] PCP - General Internal Medicine 09/19/19 Bill Bowens PA-C [address] [address] Assigned PCP 01/14/15 12/03/19 Alex Rao MD 6320 [facility] [place] [address] Assigned PCP 12/04/19 02/18/20 Beni Puga MD PhD 63[address] [facility] [place] [address] Assigned PCP 02/19/20 02/25/20 Alex Rao MD 6320 [facility] [address] Assigned PCP 02/26/20 03/20/21 Nate Leong MD [address] [place], [place] [address] Assigned Surgical Provider 08/17/20 11/07/22 Sharri Hdez MD 420 [facility] 101 [place], [place] [address] Assigned Endocrinology Provider 12/16/20 03/16/24 Alex Rao MD [address] [place] [address] Assigned PCP 03/21/21 Alex Rao MD [address] [place] [address] Referring Physician Internal Medicine 04/02/22 Russell Agosto MD [address] [place] [address] 8[address] Neurology 04/02/22 Magdalena Fry MD [address] 675445 Assigned Heart and Vascular Provider 04/26/22 02/15/24 Doris Chaney [facility] [address] [phone] Pharmacist Pharmacist 07/21/22 Doris Chaney [facility] [address] [phone] Assigned MTM Pharmacist 07/26/2202/14 [place] [address] [phone] Nephrology 05/14/23 documented as of this encounter
--- OUTSIDE RECORDS SUMMARY | 2025-04-25 01:40 | XMS_ITS | Encounter Summary ---
Author Organization [place] Address [address] [place] [address] Care Team Providers Care Radio Television Technical Director Name Role Phone Alex Rao MD Primary Care Provider [phone] Sharri Hdez MD Unavailable [phone] Alex Rao MD Unavailable [phone] Alex Rao MD Unavailable [phone] Russell Agosto MD Unavailable [phone] Magdalena Fry MD Unavailable Doris Chaeny [facility] Unavailable [phone] Doris Chaney [facility] Unavailable [phone] Canelo Kelley MD Unavailable Encounter Details Date Type Department Care Team (Late st Contact Info) Description 01/28/2023 [facility] [place] [facility] [address] 3[address] [place] [address] Taiwo Yañez Social History Tobacco [...] AM CDT Legal Sex Male 4:10 AM COAL CUTTER Gender Identity Male 11/22/2018 10:40 AM COAL CUTTER Sexual Orientation Straight 11/22/2018 10 :40 AM COAL CUTTER Occupation Industry Job Start Date Job 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- [employer] Not on file Not on file Not on file documented as of this encounter Plan of Treatment Upcoming Encounters Date Type Department Care Team (Late st Contact Info) Description 06/30/2025 Ancillary Procedure [address] [phone] Magdalena Fry MD [address] [place] [address] 026305 10/02/2025 Ancillary Procedure [address] [phone] Magdalena Fry MD [address] [place] [address] 894295 documented as of this encounter Visit Diagnoses Not on filedocumented in this encounter Additional Health Concerns Assessment Noted Time PHQ-9 Depression Total Score: 9 06/10/20 22 11:44 AM CDT documented as of this encounter Care Teams Radio Television Technical Director Relationship Specialty Start Date End Date Alex Rao MD PCP - General Internal Medicine 09/19/19 Sharri Hdez MD [address] [place] [address] 101 [place] [address] Assigned Endocrinology Provider 12/16/20 03/16/24 Alex Rao MD 6320 [place] [address] Assigned PCP 03/21/21 Alex Rao MD [address] [facility] [address] [place] [address] Referring Physician Internal Medicine 04/02/22 Russell Agosto MD [address] [address] Neurology 04/02/22 Magdalena Fry MD [address] [address] Assigned Heart and Vascular Provider 04/26/22 02/15/24 Doris Chaney [facility] [address] [phone] Pharmacist Pharmacist 07/21/22 Doris Chaney [facility] [address] [phone] Assigned MTM Pharmacist 07/26/2202/14 [place] [address] [phone] Nephrology 05/14/23 documented as of this encounter
--- OUTSIDE RECORDS SUMMARY | 2025-04-25 01:40 | XMS_ITS | Encounter Summary ---
Author Organization [place] Address [address] [place] [address] Care Team Providers Care Incubator Machine Operator Name Role Phone Antonio Celeste MD Primary Care Provider U nealsharon Bill Bowens PA-C Primary Care Provider + Bill Bowens PA-C Unavailable [phone] Bill Bowens PA-C Unavailable [phone] Alex Rao MD Primary Care Provider [phone] Alex Rao MD Unavailable [phone] Beni Puga MD PhD Unavailable Alex Rao MD Unavailable [phone] Nate Leong MD Unavailable [phone] Sharri Hdez MD Unavailable [phone] Alex Rao MD Unavailable [phone] Alex Rao MD Unavailable [phone] Russell Agosto MD Unavailable [phone] Magdalena Fry MD Unavailable Doris Chaney [facility] Unavailable [phone] Doris Chaney [facility] Unavailable [phone] Canelo Kelley MD Unavailable Encounter Details Date Type Department Care Team (Late Contact Info) Description 04/04/2011 MyC Medical Advice [address] [address] Taiwo Yañez Social History Tobacco Use Types Packs/Day Years Used Date Smoking Tobacco: Former Cigarettes Q uit: 02/21/1974 Alcohol Use Standard Drinks/Week Comments Yes 0 (1 standard drink = 0.6 oz pure alcohol) occasional; 2-12 beers per weekends Sex and Gender Information Value Date Recorded Sex Assigned at Male 07/18/2019 7:43 AM CDT Legal Sex Male 4:10 AM PROCESS OWNER Gender Identity Male 11/22/2018 10:40 AM PROCESS OWNER Sexual Orientation Straight 11/22/2018 10 :40 AM PROCESS OWNER Occupation Industry Job Start Date Job 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- [employer] Not on file Not on file Not on file documented as of this encounter Plan of Treatment Upcoming Encounters Date Type Department Care Team (Late Contact Info) Description 06/30/2025 Ancillary Procedure [address] [address] Magdalena Fry MD [address] [place] [address] [phone] 10/02/2025 Ancillary Procedure [address] [address] Magdalena Fry MD [address] [place] [address] [phone] documented as of this encounter Visit Diagnoses Not on filedocumented in this encounter Care Teams Incubator Machine Operator Relationship Specialty Start Date End Date Antonio Celeste MD NO INFO AVAILABLE 08/25/2022 PCP - General 03/24/03 02/19/15 Bill Bowens PA-C NO INFO AVAILABLE 08/25/2022 PCP - General Physician Veneer Grader 02/20/15 09/18/19 Bill Bowens PA-C [address] [address] PCP - Assigned PCP 01/14/15 12/28/18 Alex Rao MD [address] [address] PCP - General Internal Medicine 09/19/19 Bill Bowens PA-C [address] [address] Assigned PCP 01/14/15 12/03/19 Alex Rao MD [address] [place] [address] Assigned PCP 12/04/19 02/18/20 Beni Puga MD PhD [address] [place] [address] Assigned PCP 02/19/20 02/25/20 Alex Rao MD [address] [place] [address] Assigned PCP 02/26/20 03/20/21 Nate Leong MD [address] 218655 Assigned Surgical Provider 08/17/20 11/07/22 Sharri Hdez MD [address] [place] [address] Assigned Endocrinology Provider 12/16/20 03/16/24 Alex Rao MD [address] [facility] [place] [address] Assigned PCP 03/21/21 Alex Rao MD [address] [place] [address] Referring Physician Internal Medicine 04/02/22 Russell Agosto MD [address] [address] Neurology 04/02/22 Magdalena Fry MD [address] [address] Assigned Heart and Vascular Provider 04/26/22 02/15/24 Doris Chaney [facility] [address] [phone] Pharmacist Pharmacist 07/21/22 Doris Chaney [facility] [address] [phone] Assigned MTM Pharmacist 07/26/2202/14 [place] [address] [address] Nephrology 05/14/23 documented as of this encounter
--- OUTSIDE RECORDS SUMMARY | 2025-04-25 01:40 | XMS_ITS | Encounter Summary ---
Author Organization [place] Address [facility] [place] [address] Care Team Providers Care Product Marketer Name Role Phone Alex Rao MD Primary Care Provider [phone] Nate Leong MD Unavailable [phone] Sharri Hdez MD Unavailable Alex Rao MD Unavailable [phone] Alex Rao MD Unavailable [phone] Russell Agosto MD Unavailable [phone] Magdalena Fry MD Unavailable Doris Chaney [facility] Unavailable [phone] Doris Chaney [facility] Unavailable Canelo Kelley MD Unavailable Encounter Details Date Type Department Care Team (Late st Contact Info) Description 10/13/2022 [facility] [address] [facility] [address] [place] [address] Doris Chaney, [facility] [address] [place] [address] Social History Tobacco Use Types [...] AM CDT Legal Sex Male 4:10 AM BRIDGE/STRUCTURE INSPECTION TEAM LEADER Gender Identity Male 11/22/2018 10:40 AM BRIDGE/STRUCTURE INSPECTION TEAM LEADER Sexual Orientation Straight 11/22/2018 10 :40 AM BRIDGE/STRUCTURE INSPECTION TEAM LEADER Occupation Industry Job Start Date Job 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- [employer] Not on file Not on file Not on file documented as of this encounter Plan of Treatment Upcoming Encounters Date Type Department Care Team (Late st Contact Info) Description 06/30/2025 Ancillary Procedure [address] [phone] Magdalena Fry MD [address] [place] [address] [phone] 10/02/2025 Ancillary Procedure [address] [address] Magdalena Fry MD [address] [place] [address] [phone] documented as of this encounter Visit Diagnoses Not on filedocumented in this encounter Additional Health Concerns Assessment Noted Time PHQ-9 Depression Total Score: 9 06/10/20 22 11:44 AM CDT documented as of this encounter Care Teams Product Marketer Relationship Specialty Start Date End Date Alex Rao MD PCP - General Internal Medicine 09/19/19 Nate Leong MD [address] [place] [address] Assigned Surgical Provider 08/17/20 11/07/22 Sharri Hdez MD [address] [facility] [address] [place], [place] 810885 Assigned Endocrinology Provider 12/16/20 03/16/24 Alex Rao MD 6320 [facility] [place], [place] 733031 Assigned PCP 03/21/21 Alex Rao MD 6320 [facility] [address] [place], [place] 128511 Referring Physician Internal Medicine 04/02/22 Russell Agosto MD 420 [facility] 486 [place], [place] 685475 Neurology 04/02/22 Magdalena Fry MD 420 [facility] 486 [place], [place] 862845 Assigned Heart and Vascular Provider 04/26/22 02/15/24 Doris Chaney [facility] [address] [address] Pharmacist Pharmacist 07/21/22 Doris Chaney [facility] [address] [phone] Assigned MTM Pharmacist 07/26/2202/14 [place] [address] [address] Nephrology 05/14/23 documented as of this encounter
--- OUTSIDE RECORDS SUMMARY | 2025-04-25 01:40 | XMS_ITS | Encounter Summary ---
Author Organization [place] Address [address] [place] [address] Care Team Providers Care Director Blood Bank Name Role Phone Alex Rao MD Primary Care Provider [phone] Sharri Hdez MD Unavailable [phone] Alex Rao MD Unavailable [phone] Alex Rao MD Unavailable [phone] Russell Agosto MD Unavailable [phone] Magdalena Fry MD Unavailable Doris Chaney [facility] Unavailable Doris Chaney [facility] Unavailable Canelo Kelley MD Unavailable Encounter Details Date Type Department Care Team (Late st Contact Info) Description 04/09/2023 Maddi [facility] [address] 4th [place] [address] Taiwo Yañez Social History Tobacco [...] AM CDT Legal Sex Male 4:10 AM 7TH GRADE TEACHER Gender Identity Male 11/22/2018 10:40 AM 7TH GRADE TEACHER Sexual Orientation Straight 11/22/2018 10 :40 AM 7TH GRADE TEACHER Occupation Industry Job Start Date Job [...] st Contact Info) Description 06/30/2025 Ancillary Procedure [address] [address] Magdalena Fry MD [address] [place] [address] [phone] 10/02/2025 Ancillary Procedure [address] [address] Magdalena Fry MD [address] [place] [address] [phone] documented as of this encounter Visit Diagnoses Not on filedocumented in this encounter Additional Health Concerns Assessment Noted Time PHQ-9 Depression Total Score: 9 06/10/20 22 11:44 AM CDT documented as of this encounter Care Teams Director Blood Bank Relationship Specialty Start Date End Date Alex Rao MD PCP - General Internal Medicine 09/19/19 Sharri Hdez MD [address] [place] [address] Assigned Endocrinology Provider 12/16/20 03/16/24 Alex Rao MD [address] [place] [address] Assigned PCP 03/21/21 Alex Rao MD [address] [place] [address] Referring Physician Internal Medicine 04/02/22 Russell Agosto MD [address] [address] Neurology 04/02/22 Magdalena Fry MD [address] [address] Assigned Heart and Vascular Provider 04/26/22 02/15/24 Doris Chaney [facility] [address] [phone] Pharmacist Pharmacist 07/21/22 Doris Chaney [facility] [address] [phone] Assigned MTM Pharmacist 07/26/2202/14 [place] [address] [phone] Nephrology 05/14/23 documented as of this encounter
--- OUTSIDE RECORDS SUMMARY | 2025-04-25 01:40 | XMS_ITS | Encounter Summary ---
Author Organization [place] Address [address] [place] [address] Care Team Providers Care Boarding House Manager Name Role Phone Alex Rao MD Primary Care Provider [phone] Sharri Hdez MD Unavailable [phone] Alex Rao MD Unavailable [phone] Alex Rao MD Unavailable [phone] Russell Agosto MD Unavailable [phone] Magdalena Fry MD Unavailable Doris Chaney [facility] Unavailable Doris Chaney [facility] Unavailable [phone] Canelo Kelley MD Unavailable Encounter Details Date Type Department Care Team (Late st Contact Info) Description 12/01/2022 MyC Medical Advice [address] [address] Caitlin Martinez, CONSUMER LOAN UNDERWRITER Social History Tobacco Use Types Packs/Day Years [...] AM CDT Legal Sex Male 4:10 AM CERAMIC MOLD DESIGNER Gender Identity Male 11/22/2018 10:40 AM CERAMIC MOLD DESIGNER Sexual Orientation Straight 11/22/2018 10 :40 AM CERAMIC MOLD DESIGNER Occupation Industry Job Start Date Job 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 Unable to assess 12/03/2022 5:50 AM CERAMIC MOLD DESIGNER documented as of this encounter Plan of Treatment Upcoming Encounters Date Type Department Care Team (Late st Contact Info) Description 06/30/2025 Ancillary Procedure [address] [address] Magdalena Fry MD [address] [place] [address] 10/02/2025 Ancillary Procedure [address] [address] Magdalena Fry MD [address] [place] [address] [phone] documented as of this encounter Visit Diagnoses Not on filedocumented in this encounter Additional Health Concerns Assessment Noted Time PHQ-9 Depression Total Score: 9 06/10/20 22 11:44 AM CDT documented as of this encounter Care Teams Boarding House Manager Relationship Specialty Start Date End Date Alex Rao MD PCP - General Internal Medicine 09/19/19 Sharri Hdez MD [address] [place] [address] 101 [place] [address] Assigned Endocrinology Provider 12/16/20 03/16/24 Alex Rao MD 63[address] [facility] [address] [place] [address] Assigned PCP 03/21/21 Alex Rao MD [address] [place] [address] Referring Physician Internal Medicine 04/02/22 Russell Agosto MD [address] [address] Neurology 04/02/22 Magdalena Fry MD [address] [address] Assigned Heart and Vascular Provider 04/26/22 02/15/24 Doris Chaney [facility] [address] [phone] Pharmacist Pharmacist 07/21/22 Doris Chaney [facility] [address] [phone] Assigned MTM Pharmacist 07/26/2202/14 [place] [address] [phone] Nephrology 05/14/23 documented as of this encounter
--- OUTSIDE RECORDS SUMMARY | 2025-04-25 01:40 | XMS_ITS | Encounter Summary ---
Author Organization [place] Address [address] [place] [address] Care Team Providers Care Ice Cutter Name Role Phone Antonio Celeste MD Primary Care Provider U nealsharon Bill Bowens PA-C Primary Care Provider + Bill Bowens PA-C Unavailable [phone] Bill Bowens PA-C Unavailable [phone] Alex Rao MD Primary Care Provider [phone] Alex Rao MD Unavailable [phone] Beni Puga MD PhD Unavailable Alex Rao MD Unavailable [phone] Nate Leong MD Unavailable [phone] Sharri Hdez MD Unavailable [phone] Alex Rao MD Unavailable [phone] Alex Rao MD Unavailable [phone] Russell Agosto MD Unavailable [phone] Magdalena Fry MD Unavailable Doris Chaney [facility] Unavailable [phone] Doris Chaney [facility] Unavailable [phone] Canelo Kelley MD Unavailable Encounter Details Date Type Department Care Team (Late st Contact Info) Description 08/07/2010 [facility] Medical [facility] Social History Tobacco Use Types Packs/Day Years Used Date Smoking Tobacco: Former Cigarettes Q uit: 02/21/1974 Alcohol Use Standard Drinks/Week Comments Yes 0 (1 standard drink = 0.6 oz pur e alcohol) occasional Sex and Gender Information Value Date Recorded Sex Assigned at Male 07/18/2019 7:43 AM CDT Legal Sex Male 4:10 AM LIMNOLOGY TEACHER Gender Identity Male 11/22/2018 10:40 AM LIMNOLOGY TEACHER Sexual Orientation Straight 11/22/2018 10 :40 AM LIMNOLOGY TEACHER Occupation Industry Job Start Date Job 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- [employer] Not on file Not on file Not on file documented as of this encounter Plan of Treatment Upcoming Encounters Date Type Department Care Team (Late Contact Info) Description 06/30/2025 Ancillary Procedure [address] [address] Magdalena Fry MD [address] [place] [address] [phone] 10/02/2025 Ancillary Procedure [address] [address] Magdalena Fry MD [address] [place] [address] documented as of this encounter Visit Diagnoses Not on filedocumented in this encounter Care Teams Ice Cutter Relationship Specialty Start Date End Date Antonio Celeste MD NO INFO AVAILABLE 08/25/2022 PCP - General 03/24/03 02/19/15 Bill Bowens PA-C NO INFO AVAILABLE 08/25/2022 PCP - General Physician Equipment Worker 02/20/15 09/18/19 Bill Bowens PA-C [address] [place] [address] PCP - Assigned PCP 01/14/15 12/28/18 Alex Rao MD [address] [place] [address] PCP - General Internal Medicine 09/19/19 Bill Bowens PA-C [address] [place] [address] Assigned PCP 01/14/15 12/03/19 Alex Rao MD [address] [place] [address] Assigned PCP 12/04/19 02/18/20 Beni Puga MD PhD [address] [place] [address] Assigned PCP 02/19/20 02/25/20 Alex Rao MD [address] [place] [address] Assigned PCP 02/26/20 03/20/21 Nate Leong MD [address] [place], [place] 8586[address] Assigned Surgical Provider 08/17/20 11/07/22 Sharri Hdez MD 420 [facility] 101 [place], [place] 665025 Assigned Endocrinology Provider 12/16/20 03/16/24 Alex Rao MD [address] [place] [address] Assigned PCP 03/21/21 Alex Rao MD [address] [place] [address] Referring Physician Internal Medicine 04/02/22 Russell Agosto MD [address] [address] Neurology 04/02/22 Magdalena Fry MD [address] [address] Assigned Heart and Vascular Provider 04/26/22 02/15/24 Doris Chaney [facility] [address] [phone] Pharmacist Pharmacist 07/21/22 Doris Chaney [facility] [address] [phone] Assigned MTM Pharmacist 07/26/2202/14 [place] [address] [phone] Nephrology 05/14/23 documented as of this encounter
--- OUTSIDE RECORDS SUMMARY | 2025-04-25 01:41 | XMS_ITS | Encounter Summary ---
Author Organization [place] Address [address] [place] [address] Care Team Providers Care Audit Mgr Name Role Phone Antonio Celeste MD Primary Care Provider U nealsharon Bill Bowens PA-C Primary Care Provider + Bill Bowens PA-C Unavailable [phone] Bill Bowens PA-C Unavailable [phone] Alex Rao MD Primary Care Provider [phone] Alex Rao MD Unavailable [phone] Beni Puga MD PhD Unavailable Alex Rao MD Unavailable [phone] Nate Leong MD Unavailable [phone] Sharri Hdez MD Unavailable [phone] Alex Rao MD Unavailable [phone] Alex Rao MD Unavailable [phone] Russell Agosto MD Unavailable [phone] Magdalena Fry MD Unavailable Doris Chaney [facility] Unavailable [phone] Doris Chaney [facility] Unavailable [phone] Canelo Kelley MD Unavailable Encounter Details Date Type Department Care Team (Late st Contact Info) Description 02/28/2013 MyC Medical Advice Initial [facility] [place] [place] Social History Tobacco Use Types Packs/Day [...] AM CDT Legal Sex Male 4:10 AM ARTIST SCIENTIFIC Gender Identity Male 11/22/2018 10:40 AM ARTIST SCIENTIFIC Sexual Orientation Straight 11/22/2018 10 :40 AM ARTIST SCIENTIFIC Occupation Industry Job Start Date Job 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- [employer] Not on file Not on file Not on file documented as of this encounter Plan of Treatment Upcoming Encounters Date Type Department Care Team (Late st Contact Info) Description 06/30/2025 Ancillary Procedure [address] [address] Magdalena Fry MD [address] [place] [address] 105655 10/02/2025 Ancillary Procedure [address] [address] Magdalena Fry MD [address] [place] [address] [phone] documented as of this encounter Visit Diagnoses Not on filedocumented in this encounter Care Teams Audit Mgr Relationship Specialty Start Date End Date Antonio Celeste MD NO INFO AVAILABLE 08/25/2022 PCP - General 03/24/03 02/19/15 Bill Bowens PA-C NO INFO AVAILABLE 08/25/2022 PCP - General Physician Mountain Guide 02/20/15 09/18/19 Bill Bowens PA-C [address] [place] [address] PCP - Assigned PCP 01/14/15 12/28/18 Alex Rao MD [address] [place] [address] PCP - General Internal Medicine 09/19/19 Bill Bowens PA-C [address] [place] [address] Assigned PCP 01/14/15 12/03/19 Alex Rao MD [address] [facility] [place] 243[address] Assigned PCP 12/04/19 02/18/20 Beni Puga MD PhD [address] [facility] [place] [address] Assigned PCP 02/19/20 02/25/20 Alex Rao MD [address] [facility] [place] [address] Assigned PCP 02/26/20 03/20/21 Nate Leong MD [address] [facility] [place] 347[address] Assigned Surgical Provider 08/17/20 11/07/22 Sharri Hdez MD [address] [place] [address]88[address] Assigned Endocrinology Provider 12/16/20 03/16/24 Alex Rao MD [address] [facility] [place] 930131 Assigned PCP 03/21/21 Alex aRo MD [address] [address] Referring Physician Internal Medicine 04/02/22 Russell Agosto MD [address] [place] [address] 722425 Neurology 04/02/22 Magdalena Fry MD [address] 015015 Assigned Heart and Vascular Provider 04/26/22 02/15/24 Doris Chaney [facility] [address] [phone] Pharmacist Pharmacist 07/21/22 [facility] [address] [phone] Assigned MTM Pharmacist 07/26/2202/14 [place] [address] [phone] Nephrology 05/14/23 documented as of this encounter
--- OUTSIDE RECORDS SUMMARY | 2025-04-25 01:41 | XMS_ITS | Encounter Summary ---
Author Organization [place] Address [address] [place] [address] Care Team Providers Care Computer Analyst Name Role Phone Alex Rao MD Primary Care Provider [phone] Alex Rao MD Unavailable [phone] Nate Leong MD Unavailable [phone] Sharri Hdez MD Unavailable [phone] Alex Rao MD Unavailable [phone] Alex Rao MD Unavailable [phone] Russell Agosto MD Unavailable [phone] Magdalena Fry MD Unavailable Doris Chaney [facility] Unavailable [phone] Doris Chaney [facility] Unavailable Canelo Kelley MD Unavailable Encounter Details Date Type Department Care Team (Late st Contact Info) Description 07/31/2020 [facility] Bernard Avila [address] [address] Rehana Hoyt Social History Tobacco [...] AM CDT Legal Sex Male 4:10 AM IT SOFTWARE DEVELOPER Gender Identity Male 11/22/2018 10:40 AM IT SOFTWARE DEVELOPER Sexual Orientation Straight 11/22/2018 10 :40 AM IT SOFTWARE DEVELOPER Occupation Industry Job Start Date [...] Contact Info) Description 06/30/2025 Ancillary Procedure [address] [address] Magdalena Fry MD [address] [place] [address] [phone] 10/02/2025 Ancillary Procedure [address] [phone] Magdalena Fry MD [address] [place] [address] [phone] documented as of this encounter Visit Diagnoses Not on filedocumented in this encounter Care Teams Computer Analyst Relationship Specialty Start Date End Date Alex Rao MD PCP - General Internal Medicine 09/19/19 Alex Rao MD 6320 [place] [address] Assigned PCP 02/26/20 03/20/21 Nate Leong MD [address] [place] [address] Assigned Surgical Provider 08/17/20 11/07/22 Sharri Hdez MD 420 [facility] 101 [place] [address] Assigned Endocrinology Provider 12/16/20 03/16/24 Alex Rao MD 6320 [facility] [place] [address] Assigned PCP 03/21/21 Alex Rao MD [address] [facility] [place], [place] 9[address] Referring Physician Internal Medicine 04/02/22 Russell Agosto MD 420 [facility] 486 [place] [address] Neurology 04/02/22 Magdalena Fry MD [address] [place] [address] 486 [place], [place] 793115 Assigned Heart and Vascular Provider 04/26/22 02/15/24 Doris Chaney [facility] [address] [phone] Pharmacist Pharmacist 07/21/22 Doris Chaney [facility] [address] [phone] Assigned MTM Pharmacist 07/26/2202/14 [place] [address] [phone] Nephrology 05/14/23 documented as of this encounter
--- OUTSIDE RECORDS SUMMARY | 2025-04-25 01:41 | XMS_ITS | Encounter Summary ---
Author Organization [place] Address [address] [place] [address] Care Team Providers Care Tallow Maker Name Role Phone Alex Rao MD Primary Care Provider [phone] Alex Rao MD Unavailable [phone] Alex Rao MD Unavailable [phone] Russell Agosto MD Unavailable [phone] Doris Chaney [facility] [...] AM CDT Legal Sex Male 4:10 AM BAGGAGE HANDLER Gender Identity Male 11/22/2018 10:40 AM BAGGAGE HANDLER Sexual Orientation Straight 11/22/2018 10 :40 AM BAGGAGE HANDLER Occupation Industry Job Start Date Job 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- [employer] Not on file Not on file Not on file documented as of this encounter Plan of Treatment Upcoming Encounters Date Type Department Care Team (Late st Contact Info) Description 06/30/2025 Ancillary Procedure [address] [phone] Magdalena Fry MD [address] [place] [address] [phone] 10/02/2025 Ancillary Procedure [address] [phone] Magdalena Fry MD [address] [place] [address] [phone] documented as of this encounter Visit Diagnoses Not on filedocumented in this encounter Additional Health Concerns Assessment Noted Time PHQ-9 Depression Total Score: 9 06/10/20 22 11:44 AM CDT documented as of this encounter Care Teams Tallow Maker Relationship Specialty Start Date End Date Alex Rao MD PCP - General Internal Medicine 09/19/19 Alex Rao MD [address] [place], [place] 946121 Assigned PCP 03/21/21 Alex Rao MD [address] [place] [address] Referring Physician Internal Medicine 04/02/22 Russell Agosto MD [address] [place] [address] Neurology 04/02/22 Doris Chaney, [facility] [address] [place] [phone] Pharmacist Pharmacist 07/21/22 [place] [address] [place] [address] Nephrology 05/14/23 documented as of this encounter
--- OUTSIDE RECORDS SUMMARY | 2025-04-25 01:41 | XMS_ITS | Encounter Summary ---
Author Organization [place] Address [address] [place] [address] Care Team Providers Care Hatchery Helper Name Role Phone Alex Rao MD Primary Care Provider [phone] Alex Rao MD Unavailable Nate Leong MD Unavailable [phone] Sharri Hdez MD Unavailable [phone] Alex Rao MD Unavailable [phone] Alex Rao MD Unavailable [phone] Russell Agosto MD Unavailable [phone] Magdalena Fry MD Unavailable Doris Chaney [facility] Unavailable Doris Chaney [facility] Unavailable [phone] Canelo Kelley MD Unavailable Encounter Details Date Type Department Care Team (Late st Contact Info) Description 12/11/2020 Maddi Wagner [address] [address] Sharri Hdez MD 420 [facility] 101 [place] [address] Social History Tobacco Use Types [...] AM CDT Legal Sex Male 4:10 AM 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 No / Unsure 12/10/2020 9:51 AM MAILING MACHINE ASSISTANT documented as of this encounter Plan of Treatment Upcoming Encounters Date Type Department Care Team (Late st Contact Info) Description 06/30/2025 Ancillary Procedure [address] [address] Magdalena Fry MD [address] [place] [address] [phone] 10/02/2025 Ancillary Procedure [address] [phone] Magdalena Fry MD [address] [place] [address] [phone] documented as of this encounter Visit Diagnoses Not on filedocumented in this encounter Care Teams Hatchery Helper Relationship Specialty Start Date End Date Alex Rao MD PCP - General Internal Medicine 09/19/19 Alex Rao MD 6320 [place] [address] Assigned PCP 02/26/20 03/20/21 Nate Leong MD [address] 088615 Assigned Surgical Provider 08/17/20 11/07/22 Sharri Hdez MD [address] [address] Assigned Endocrinology Provider 12/16/20 03/16/24 Alex Rao MD [address]20 [place] [address] Assigned PCP 03/21/21 Alex Rao MD [address] [place] [address] Referring Physician Internal Medicine 04/02/22 Russell Agosto MD [address] 106075 Neurology 04/02/22 Magdalena Fry MD [address] [place] [address] 120475 Assigned Heart and Vascular Provider 04/26/22 02/15/24 Doris Chaney [facility] [address] [address] Pharmacist Pharmacist 07/21/22 Doris Chaney [facility] [address] [place] [address] Assigned MTM Pharmacist 07/26/2202/14 [place] [address] [place], [place] [phone] Nephrology 05/14/23 documented as of this encounter
--- OUTSIDE RECORDS SUMMARY | 2025-04-25 01:41 | XMS_ITS | Encounter Summary ---
Author Organization [place] Address [address] [place] [address] Care Team Providers Care Hvac R Instructor Name Role Phone Bill Bowens PA-C Unavailable [phone] Alex Rao MD Primary Care Provider [phone] Alex Rao MD Unavailable [phone] Beni Puga MD PhD Unavailable Alex Rao MD Unavailable [phone] Nate Leong MD Unavailable [phone] Sharri Hdez MD Unavailable [phone] Alex Rao MD Unavailable [phone] Alex Rao MD Unavailable [phone] Russell Agosto MD Unavailable [phone] Magdalena Fry MD Unavailable Doris Chaney [facility] Unavailable Doris Chaney [facility] Unavailable Canelo Kelley MD Unavailable Encounter Details Date Type Department Care Team (Late st Contact Info) Description 10/11/[address] [address] Alex Rao MD 6320 [place] [address] Social History Tobacco Use Types Packs/Day Years [...] AM CDT Legal Sex Male 4:10 AM CHILD ABUSE 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 Gender Identity Male 11/22/2018 10:40 AM CHILD ABUSE WORKER Sexual Orientation Straight 11/22/2018 10 :40 AM CHILD ABUSE WORKER Occupation Industry Job Start Date Job 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- [employer] Not on file Not on file Not on file documented as of this encounter Plan of Treatment Upcoming Encounters Date Type Department Care Team (Late st Contact Info) Description 06/30/2025 Ancillary Procedure [address] [address] Magdalena Fry MD [address] [place] [address] 057185 10/02/2025 Ancillary Procedure [address] [address] Magdalena Fry MD [address] [place] [address] 799925 documented as of this encounter Visit Diagnoses Not on filedocumented in this encounter Care Teams Hvac R Instructor Relationship Specialty Start Date End Date Alex Rao MD [address] [place] [address] PCP - General Internal Medicine 09/19/19 Bill Bowens PA-C [address] [place] [address] Assigned PCP 01/14/15 12/03/19 Alex Rao MD 6320 [facility] [place] [address] Assigned PCP 12/04/19 02/18/20 Beni Puga MD PhD [address] [facility] [place] [address] Assigned PCP 02/19/20 02/25/20 Alex Rao MD 6320 [facility] [place] [address] Assigned PCP 02/26/20 03/20/21 Nate Leong MD [address] [address] Assigned Surgical Provider 08/17/20 11/07/22 hSarri Hdez MD 420 [facility] 101 [place], [place] 787135 Assigned Endocrinology Provider 12/16/20 03/16/24 Alex Rao MD 6320 [facility] [address] Assigned PCP 03/21/21 Alex Rao MD 6320 [place] [address] Referring Physician Internal Medicine 04/02/22 Russell Agosto MD 420 [facility] 486 [place] [address] Neurology 04/02/22 Magdalena Fry MD [address] [place] [address] 486 [place] [address] Assigned Heart and Vascular Provider 04/26/22 02/15/24 Doris Chaney [facility] [address] [place] [address] Pharmacist Pharmacist 07/21/22 Doris Chaney [facility] [address] [place] [address] Assigned MTM Pharmacist 07/26/2202/14 [place] [address] [place] [address] Nephrology 05/14/23 documented as of this encounter
--- OUTSIDE RECORDS SUMMARY | 2025-04-25 01:41 | XMS_ITS | Encounter Summary ---
Author Organization [place] Address [address] [place] [address] Care Team Providers Care Heel Sander Rubber Name Role Phone Antonio Celeste MD Primary Care Provider U nealsharon Bill Bowens PA-C Primary Care Provider + Bill Bowens PA-C Unavailable [phone] Bill Bowens PA-C Unavailable [phone] Alex Rao MD Primary Care Provider [phone] Alex Rao MD Unavailable [phone] Beni Puga MD PhD Unavailable Alex Rao MD Unavailable Nate Leong MD Unavailable [phone] Sharri Hdez MD Unavailable [phone] Alex Rao MD Unavailable [phone] Alex Rao MD Unavailable [phone] Russell Agosto MD Unavailable [phone] Magdalena Fry MD Unavailable Doris Chaney [facility] Unavailable [phone] Doris Chaney [facility] Unavailable [phone] Canelo Kelley MD Unavailable Reason for Visit * Reason Onset Date Comments Orders 05/03/2013 Encounter Details Date Type Department Care Team (Late st Contact Info) Description 05/03/2013 MyC Medical Advice [address] [phone] Antonio Celeste MD NO INFO AVAILABLE 08/25/2022 [...] AM CDT Legal Sex Male 4:10 AM BEATER TENDER Gender Identity Male 11/22/2018 10:40 AM BEATER TENDER Sexual Orientation Straight 11/22/2018 10 :40 AM BEATER TENDER Occupation Industry Job Start Date Job [...] st Contact Info) Description 06/30/2025 Ancillary Procedure [address] [place] [address] Magdalena Fry MD [address] [place] [address] 10/02/2025 Ancillary Procedure [place] [address] [facility] [address] [place] [address] Magdalena Fry MD 9[address] [place], [place] 837[address] documented as of this encounter Visit Diagnoses Diagnosis Type 2 diabetes, HbA1c goal < 7% (H)- Primary Type II or unspecified type diabetes mellitus without mention of complication, not stated as uncontrolled documented in this encounter Care Teams Heel Sander Rubber Relationship Specialty Start Date End Date Antonio Celeste MD NO INFO AVAILABLE 08/25/2022 PCP - General 03/24/03 02/19/15 Bill Bowens PA-C NO INFO AVAILABLE 08/25/2022 PCP - General Physician Tester Electronic Scale 02/20/15 09/18/19 Bill Bowens PA-C [address] [place] [address] PCP - Assigned PCP 01/14/15 12/28/18 Alex Rao MD [address] [place] [address] PCP - General Internal Medicine 09/19/19 Bill Bowens PA-C [address] [place] [address] Assigned PCP 01/14/15 12/03/19 Alex Rao MD 6320 [facility] [place] [address] Assigned PCP 12/04/19 02/18/20 Beni Puga MD PhD 6320 [facility] [place] [address] Assigned PCP 02/19/20 02/25/20 Alex Rao MD 6320 [facility] [place] [address] Assigned PCP 02/26/20 03/20/21 Nate Leong MD [address] 655025 Assigned Surgical Provider 08/17/20 11/07/22 Sharri Hdez MD 420 [facility] 101 [place] [address] Assigned Endocrinology Provider 12/16/20 03/16/24 Alex Rao MD 6320 [facility] [address] Assigned PCP 03/21/21 Alex Rao MD 6320 [facility] [place] [address] Referring Physician Internal Medicine 04/02/22 Russell Agosto MD 420 [facility] 486 [place], [place] 784485 Neurology 04/02/22 Magdalena Fry MD 420 [facility] 486 [place], [place] 415705 Assigned Heart and Vascular Provider 04/26/22 02/15/24 Doris Chaney, [facility] [address] [phone] Pharmacist Pharmacist 07/21/22 [facility] [address] [place] [phone] Assigned MTM Pharmacist 07/26/2202/14 [place] [address] [place] [address] Nephrology 05/14/23 documented as of this encounter
--- OUTSIDE RECORDS SUMMARY | 2025-04-25 01:41 | XMS_ITS | Encounter Summary ---
Author Organization [place] Address [address] [place] [address] Care Team Providers Care Antenna Design Engineer Name Role Phone Antonio Celeste MD Primary Care Provider U nealsharon Bill Bowens PA-C Primary Care Provider + Bill Bowens PA-C Unavailable [phone] Bill Bowens PA-C Unavailable [phone] Alex Rao MD Primary Care Provider [phone] Alex Rao MD Unavailable [phone] Beni Puga MD PhD Unavailable Alex Rao MD Unavailable [phone] Nate Leong MD Unavailable [phone] Sharri Hdez MD Unavailable [phone] Alxe Rao MD Unavailable [phone] Alex Rao MD Unavailable [phone] Russell Agosto MD Unavailable [phone] Magdalena Fry MD Unavailable Doris Chaney [facility] Unavailable [phone] Doris Chaney [facility] Unavailable [phone] Canelo Kelley MD Unavailable Encounter Details Date Type Department Care Team (Late Contact Info) Description 07/05/2013 MyC Medical Advice [address] [phone] Taiwo Yañez Social History Tobacco Use Types [...] AM CDT Legal Sex Male 4:10 AM EMT/PARAMEDIC Gender Identity Male 11/22/2018 10:40 AM EMT/PARAMEDIC Sexual Orientation Straight 11/22/2018 10 :40 AM EMT/PARAMEDIC Occupation Industry Job Start Date Job 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- [employer] Not on file Not on file Not on file documented as of this encounter Plan of Treatment Upcoming Encounters Date Type Department Care Team (Late st Contact Info) Description 06/30/2025 Ancillary Procedure [address] [address] Magdalena Fry MD [address] [place] [address] 10/02/2025 Ancillary Procedure [address] [phone] Magdalena Fry MD [address] [place] [address] [phone] documented as of this encounter Visit Diagnoses Not on filedocumented in this encounter Care Teams Antenna Design Engineer Relationship Specialty Start Date End Date Antonio Celeste MD NO INFO AVAILABLE 08/25/2022 PCP - General 03/24/03 02/19/15 Bill Bowens PA-C NO INFO AVAILABLE 08/25/2022 PCP - General Physician Executive Secretary Social Welfare 02/20/15 09/18/19 Bill Bowens PA-C [address] [place] [address] PCP - Assigned PCP 01/14/15 12/28/18 Alex Rao MD [address] [place] [address] PCP - General Internal Medicine 09/19/19 Bill Bowens PA-C [address] [place] [address] Assigned PCP 01/14/15 12/03/19 Alex Rao MD 6320 [facility] [place] [address] Assigned PCP 12/04/19 02/18/20 Beni Puga MD PhD 6320 [facility] [place] [address] Assigned PCP 02/19/20 02/25/20 Alex Rao MD 6320 [facility] [place] [address] Assigned PCP 02/26/20 03/20/21 Nate Leong MD [address] [place] [address] Assigned Surgical Provider 08/17/20 11/07/22 Sharri Hdez MD 420 [facility] 101 [place] [address] Assigned Endocrinology Provider 12/16/20 03/16/24 Alex Rao MD 6320 [facility] [place] [address] Assigned PCP 03/21/21 Alex Rao MD 6320 [facility] [place] [address] Referring Physician Internal Medicine 04/02/22 Rusesll Agosto MD 420 [facility] 486 [place] [address] Neurology 04/02/22 Magdalena Fry MD [address] [place] [address] Assigned Heart and Vascular Provider 04/26/22 02/15/24 Doris Chaney [facility] [address] [place] [phone] Pharmacist Pharmacist 07/21/22 Doris Chaney [facility] [address] [phone] Assigned MTM Pharmacist 07/26/2202/14 [place] [address] [place] [phone] Nephrology 05/14/23 documented as of this encounter
--- OUTSIDE RECORDS SUMMARY | 2025-04-25 01:41 | XMS_ITS | Encounter Summary ---
Author Organization [place] Address [address] [place] [address] Care Team Providers Care Saw Man Name Role Phone Alex Rao MD Primary Care Provider [phone] Sharri Hdez MD Unavailable [phone] Alex Rao MD Unavailable [phone] Alex Rao MD Unavailable [phone] Russell Agosto MD Unavailable [phone] Magdalena Fry MD Unavailable Doris Chaney [facility] Unavailable [phone] Doris Chaney [facility] Unavailable [phone] Canelo Kelley MD Unavailable Encounter Details Date Type Department Care Team (Late st Contact Info) Description 05/13/2023 [facility] [address] 2[address] [place] [address] Magdalena Fry MD [address] [place] [address] Social History Tobacco Use Types Packs/Day [...] AM CDT Legal Sex Male 4:10 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 Leydi Stokes RNfood preparer Centrifugal Extractor Operator [facility] [phone] option 1 documented in this encounter Plan of Treatment Upcoming Encounters Date Type Department Care Team (Late st Contact Info) Description 06/30/2025 Ancillary Procedure [address] [address] Magdalena Fry MD [address] [place] [address] [phone] 10/02/2025 Ancillary Procedure [address] [address] Magdalena Fry MD [address] [place] [address] 090395 documented as of this encounter Visit Diagnoses Not on filedocumented in this encounter Additional Health Concerns Assessment Noted Time PHQ-9 Depression Total Score: 9 06/10/20 22 11:44 AM CDT documented as of this encounter Care Teams Saw Man Relationship Specialty Start Date End Date Alex Rao MD PCP - General Internal Medicine 09/19/19 Sharri Hdez MD [address] 465395 Assigned Endocrinology Provider 12/16/20 03/16/24 Alex Rao MD 6320 [place], [place] 446[address]11 Assigned PCP 03/21/21 Alex Rao MD 6320 [place], [place] 56618311 Referring Physician Internal Medicine 04/02/22 Russell Agosto MD [address] [place] [address] 60636455 Neurology 04/02/22 Magdalena Fry MD [address] 598135 Assigned Heart and Vascular Provider 04/26/22 02/15/24 Doris Chaney [facility] [address] [place] [phone] Pharmacist Pharmacist 07/21/22 Doris Chaney [facility] [address] [place] [phone] Assigned MTM Pharmacist 07/26/2202/14 [place] [address] [place] [place] [phone] Nephrology 05/14/23 documented as of this encounter
--- OUTSIDE RECORDS SUMMARY | 2025-04-25 01:41 | XMS_ITS | Encounter Summary ---
Author Organization [place] Address [address] [place] [address] Care Team Providers Care Ferryboat Operator Name Role Phone Antonio Celeste MD Primary Care Provider U nealsharon Bill Bowens PA-C Primary Care Provider + Bill Bowens PA-C Unavailable [phone] Bill Bowens PA-C Unavailable [phone] Alex Rao MD Primary Care Provider [phone] Alex Rao MD Unavailable [phone] Beni Puga MD PhD Unavailable Alex Rao MD Unavailable [phone] Nate Leong MD Unavailable [phone] Sharri Hdez MD Unavailable [phone] Alex Rao MD Unavailable [phone] Alex Rao MD Unavailable [phone] Russell Agosto MD Unavailable [phone] Magdalena Fry MD Unavailable Doris Chaney [facility] Unavailable [phone] Doris Chaney [facility] Unavailable [phone] Canelo Kelley MD Unavailable Encounter Details Date Type Department Care Team (Late st Contact Info) Description 12/29/2013 MyC Medical Advice [address] [address] Sonya Nascimento Social History Tobacco [...] AM CDT Legal Sex Male 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 Gender Identity Male 11/22/2018 10:40 AM FISH HATCHERY INSPECTOR Sexual Orientation Straight 11/22/2018 10 :40 AM FISH HATCHERY INSPECTOR Occupation Industry Job Start Date Job 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- [employer] Not on file Not on file Not on file documented as of this encounter Plan of Treatment Upcoming Encounters Date Type Department Care Team (Late st Contact Info) Description 06/30/2025 Ancillary Procedure [address] [address] Magdalena Fry MD [address] [place] [address] 10/02/2025 Ancillary Procedure [address] [address] Magdalena Fry MD [address] [place] [address] [phone] documented as of this encounter Visit Diagnoses Not on filedocumented in this encounter Care Teams Ferryboat Operator Relationship Specialty Start Date End Date Antonio eCleste MD NO INFO AVAILABLE 08/25/2022 PCP - General 03/24/03 02/19/15 Bill Bowens PA-C NO INFO AVAILABLE 08/25/2022 PCP - General Physician Infant Teacher 02/20/15 09/18/19 Bill Bowens PA-C [address] [place] [address] PCP - Assigned PCP 01/14/15 12/28/18 Alex Rao MD [address] [place] [address] PCP - General Internal Medicine 09/19/19 Bill Bowens PA-C [address] [place] [address] Assigned PCP 01/14/15 12/03/19 Alex Rao MD 6320 [place] [address] Assigned PCP 12/04/19 02/18/20 Beni Puga MD PhD 6320 [place] [address] Assigned PCP 02/19/20 02/25/20 Alex Rao MD [address]20 [place] [address] Assigned PCP 02/26/20 03/20/21 Nate Leong MD [address] [place] [address] Assigned Surgical Provider 08/17/20 11/07/22 Sharri Hdez MD 420 [facility] 101 [place] [address] Assigned Endocrinology Provider 12/16/20 03/16/24 Alex Rao MD 6320 [facility] [place] [address] Assigned PCP 03/21/21 Alex Rao MD 6320 [facility] [place] [address] Referring Physician Internal Medicine 04/02/22 Russell Agosto MD 420 [facility] 486 [place] [address] Neurology 04/02/22 Magdalena Fry MD [address] [address] Assigned Heart and Vascular Provider 04/26/22 02/15/24 Doris Chaney [facility] [address] [place] [phone] Pharmacist Pharmacist 07/21/22 Doris Chaney [facility] [address] [place] [phone] Assigned MTM Pharmacist 07/26/2202/14 [place] [address] [phone] Nephrology 05/14/23 documented as of this encounter
--- OUTSIDE RECORDS SUMMARY | 2025-04-25 01:41 | XMS_ITS | Encounter Summary ---
Author Organization [place] Address [address] [place] [address] Care Team Providers Care Poultry Process Worker Name Role Phone Antonio Celeste MD Primary Care Provider U nealsharon Bill Bowens PA-C Primary Care Provider + Bill Bowens PA-C Unavailable [phone] Bill Bowens PA-C Unavailable [phone] Alex Rao MD Primary Care Provider [phone] Alex Rao MD Unavailable [phone] Beni Puga MD PhD Unavailable Alex Rao MD Unavailable [phone] Nate Leong MD Unavailable [phone] Sharri Hdez MD Unavailable [phone] Alex Rao MD Unavailable [phone] Alex Rao MD Unavailable [phone] Russell Agosto MD Unavailable [phone] Magdalena Fry MD Unavailable Doris Chaney [facility] Unavailable [phone] Doris Chaney [facility] Unavailable [phone] Canelo Kelley MD Unavailable Encounter Details Date [...] AM CDT Legal Sex Male 4:10 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 Gender Identity Male 11/22/2018 10:40 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 Sexual Orientation Straight 11/22/2018 10 :40 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 Occupation Industry Job Start Date Job 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- [employer] Not on file Not on file Not on file documented as of this encounter Plan of Treatment Upcoming Encounters Date Type Department Care Team (Late st Contact Info) Description 06/30/2025 Ancillary Procedure [address] [address] Magdalena Fry MD [address] [place] [address] [phone] 10/02/2025 Ancillary Procedure [address] [address] Magdalena Fry MD [address] [place] [address] [phone] documented as of this encounter Visit Diagnoses Not on filedocumented in this encounter Care Teams Poultry Process Worker Relationship Specialty Start Date End Date Antonio Celeste MD NO INFO AVAILABLE 08/25/2022 PCP - General 03/24/03 02/19/15 Bill Bowens PA-C NO INFO AVAILABLE 08/25/2022 PCP - General Physician Drywall Application Supervisor 02/20/15 09/18/19 Bill Bowens PA-C [address] [place] [address] PCP - Assigned PCP 01/14/15 12/28/18 Alex Rao MD [address] [place] [address] PCP - General Internal Medicine 09/19/19 Bill Bowens PA-C [address] [place] [address] Assigned PCP 01/14/15 12/03/19 Alex Rao MD [address] [facility] [place] [address] Assigned PCP 12/04/19 02/18/20 Beni Puga MD PhD [address] [facility] [address] Assigned PCP 02/19/20 02/25/20 Alex Rao MD [address] [facility] [address] Assigned PCP 02/26/20 03/20/21 Nate Leong MD [address] [facility] [place] [address] Assigned Surgical Provider 08/17/20 11/07/22 Sharri Hdez MD [address] [place] [address] 557155 Assigned Endocrinology Provider 12/16/20 03/16/24 Alex Rao MD [address] [place] [address] Assigned PCP 03/21/21 Alex Rao MD [address] [address] Referring Physician Internal Medicine 04/02/22 Russell Agosto MD [address] 794855 Neurology 04/02/22 Magdalena Fry MD [address] 658775 Assigned Heart and Vascular Provider 04/26/22 02/15/24 Doris Chaney [facility] [address] [place] [address] Pharmacist Pharmacist 07/21/22 [facility] [address] [place] [phone] Assigned MTM Pharmacist 07/26/2202/14 [place] [address] [place] [phone] Nephrology 05/14/23 documented as of this encounter
--- OUTSIDE RECORDS SUMMARY | 2025-04-25 01:41 | XMS_ITS | Encounter Summary ---
Author Organization [facility] Address [address] [place] [address] 31604 Care Team Providers Care Form Builder Name Role Phone Alex Rao MD Primary Care Provider [phone] Alex Rao MD Unavailable [phone] Nate Leong MD Unavailable [phone] Sharri Hdez MD Unavailable Alex Rao MD Unavailable [phone] Alex Rao MD Unavailable [phone] Russell Agosto MD Unavailable [phone] Magdalena Fry MD Unavailable Doris Chaney [facility] Unavailable Doris Chaney [facility] Unavailable Canelo Kelley MD Unavailable Encounter Details Date Type Department Care Team (Late st Contact Info) Description 12/10/2020 [facility] [address] [address] Shilpa Barnett CMA Social History [...] AM CDT Legal Sex Male 4:10 AM GAUGE MAKER Gender Identity Male 11/22/2018 10:40 AM GAUGE MAKER Sexual Orientation Straight 11/22/2018 10 :40 AM GAUGE MAKER Occupation Industry Job Start Date Job 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 No / Unsure 12/10/2020 9:51 AM GAUGE MAKER documented as of this encounter Plan of Treatment Upcoming Encounters Date Type Department Care Team (Late st Contact Info) Description 06/30/2025 Ancillary Procedure [address] [address] Magdalena Fry MD [address] [place] [address] [phone] 10/02/2025 Ancillary Procedure [address] [address] Magdalena Fry MD [address] [place] [address] [phone] documented as of this encounter Visit Diagnoses Not on filedocumented in this encounter Care Teams Form Builder Relationship Specialty Start Date End Date Alex Rao MD PCP - General Internal Medicine 09/19/19 Alex Rao MD [address] [place] [address] Assigned PCP 02/26/20 03/20/21 Nate Leong MD [address] [place] [address] Assigned Surgical Provider 08/17/20 11/07/22 Sharri Hdez MD 420 [facility] [address] [place] [address] Assigned Endocrinology Provider 12/16/20 03/16/24 Alex Rao MD [address] [place] [place], [place] 489831 Assigned PCP 03/21/21 Alex Rao MD [address] [place], [place] 370581 Referring Physician Internal Medicine 04/02/22 Russell Agosto MD 420 [facility] [address] [place], [place] 021895 Neurology 04/02/22 Magdalena Fry MD 420 [facility] [address] [place], [place] 278595 Assigned Heart and Vascular Provider 04/26/22 02/15/24 Doris Chaney [facility] [address] [place] [phone] Pharmacist Pharmacist 07/21/22 Doris Chaney [facility] [address] [place] [address] Assigned MTM Pharmacist 07/26/2202/14 [place] [address] [place] [phone] Nephrology 05/14/23 documented as of this encounter
--- OUTSIDE RECORDS SUMMARY | 2025-04-25 01:41 | XMS_ITS | Encounter Summary ---
Author Organization [place] Address [address] [place] [address]47 Care Team Providers Care Pmo Project Manager Name Role Phone Alex Rao MD Primary Care Provider Alex Rao MD Unavailable [phone] Nate Leong MD Unavailable [phone] Sharri Hdez MD Unavailable Alex Rao MD Unavailable [phone] Alex Rao MD Unavailable [phone] Russell Agosto MD Unavailable [phone] Magdalena Fry MD Unavailable Doris Chaney [facility] Unavailable Doris Chaney [facility] Unavailable Canelo Kelley MD Unavailable Reason for Visit * Reason Comments Medication Refill ATORVASTATIN CALCIUM 40MG TABS, Encounter Details Date Type Department Care Team (Late st Contact Info) Description 09/16/[address] [address] Alxe Rao MD [address] [place] [address] Medication Refill (ATORVASTATIN CALCIUM 40MG [...] AM CDT Legal Sex Male 4:10 AM 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 No / Unsure 08/28/2020 9:24 AM SELF DEFENSE INSTRUCTOR documented as of this encounter Miscellaneous Notes [...] Tabs, 3 Refills sent to pharm 09/19/2020 DEFENSE INSTRUCTOR documented in this encounter Plan of Treatment Upcoming Encounters Date Type Department Care Team (Late st Contact Info) Description 06/30/2025 Ancillary Procedure [address] [address] Magdalena Fry MD [address] [place] [address] 10/02/2025 Ancillary Procedure [address] [address] Magdalena Fry MD [address] [place] [address] documented as of this encounter Visit Diagnoses Diagnosis Hypertrophy of prostate without urinary obstruction Unspecified hyperplasia of prostate without urinary obstruction and other lower urinary tract symptoms (LUTS) Hyperlipidemia LDL goal <100 Other and unspecified hyperlipidemia Essential hypertension with goal blood pressure less than 140/90 documented in this encounter Care Teams Pmo Project Manager Relationship Specialty Start Date End Date Alex Rao MD PCP - General Internal Medicine 09/19/19 Alex Rao MD [address] [place] [address] Assigned PCP 02/26/20 03/20/21 Nate Leong MD [address] 576955 Assigned Surgical Provider 08/17/20 11/07/22 Sharri Hdez MD [address] [place] [address] 101 [place], [place] 904245 Assigned Endocrinology Provider 12/16/20 03/16/24 Alex Rao MD [address] [place] [address] Assigned PCP 03/21/21 Alex Rao MD [address] [place] [address] Referring Physician Internal Medicine 04/02/22 Russell Agosto MD [address] [address] Neurology 04/02/22 Magdalena Fry MD [address] [address] Assigned Heart and Vascular Provider 04/26/22 02/15/24 Doris Chaney [facility] [address] [place] [phone] Pharmacist Pharmacist 07/21/22 Doris Chaney [facility] [address] [place] [phone] Assigned MTM Pharmacist 07/26/2202/14 [place] [address] [place] [phone] Nephrology 05/14/23 documented as of this encounter
--- OUTSIDE RECORDS SUMMARY | 2025-04-25 01:41 | XMS_ITS | Encounter Summary ---
Author Organization [facility] Address [address] [place] [address] Care Team Providers Care Bench Repair Technician Name Role Phone Alex Rao MD Primary Care Provider [phone] Alex Rao MD Unavailable [phone] Beni Puga MD PhD Unavailable Alex Rao MD Unavailable [phone] Nate Leong MD Unavailable [phone] Sharri Hdez MD Unavailable [phone] Alex Rao MD Unavailable [phone] Alex Rao MD Unavailable [phone] Russell Agosto MD Unavailable [phone] Magdalena Fry MD Unavailable Doris Chaney [facility] Unavailable Doris Chaney [facility] Unavailable Canelo Kelley MD Unavailable Reason for Referral * (Routine) - Closed Specialty Diagnoses / Procedures [facility] To Contact Diagnoses Special screening for malignant neoplasms, colon Alex Rao MD Phone: tel: fax: Referral ID Status Reason Start Date Expiration Date Visits Re quested Visits Authorized [id number] Closed 12/08/2019 12/07/2020 1 1 Question Answer Procedure: Colonoscopy Purpose of Procedure: Screening Does the patient have the following? None Is the patient on the following medications? None Preferred Location [facility] Which [place] Provider? No Preference - GI Provider Only Comments Last Lab Result: Creatinine (mg/dL) Date Value 11/24/2019 0.86 There is no height or weight on file to calculate BMI. Blender Operator Needed: No Language: Swedish Patient will be contacted to schedule procedure. Please be aware that coverage of these services is subject to the terms and limitations of your health insurance plan. Call member services at your health plan with any benefit or coverage questions. Any procedures must be performed at a [facility] facility OR coordinated by your clinic's referral office. Please bring the following with you to your appointment: (1) Any X-Rays, CTs or MRIs which have been performed. Contact the facility where they were done to arrange for picked edge sewing machine operator prior to your scheduled appointment. (2) List of current medications (3) This referral request (4) Any documents/labs given to you for this referral ATIONS SUPPORT SPECIALIST Reason for Visit * Reason Onset Date Comments Orders 12/07/2019 colonoscopy Encounter Details Date Type Department Care Team (Late st Contact Info) Description 12/07/2019 MyC Medical Advice [address] [place] [address] Alex Rao MD [address] [place], [place] [phone] Orders (colonoscopy) Social History Tobacco Use Types [...] CDT Legal Sex Male 4:10 AM OPERATIONS SUPPORT SPECIALIST Gender Identity Male 11/22/2018 10:40 AM OPERATIONS SUPPORT SPECIALIST Sexual Orientation Straight 11/22/2018 10 :40 AM OPERATIONS SUPPORT SPECIALIST Occupation Industry Job Start Date Job 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 Travis Bob CMA ATIONS SUPPORT SPECIALIST * Telephone Encounter - Alex Rao MD - 12/08/2019 12:56 PM CST A referral for colonoscopy has been placed. ATIONS SUPPORT SPECIALIST * Telephone Encounter - Gisele Collins LPN - 12/07/2019 8:55 AM CST Referral request from pt for colonoscopy. Message routed to provider for further review. Please advise. Gisele collins lpn ATIONS SUPPORT SPECIALIST documented in this encounter Plan of Treatment Upcoming Encounters Date Type Department Care Team (Late st Contact Info) Description 06/30/2025 Ancillary Procedure [address] [address] Magdalena Fry MD [address] [place] [address] [phone] 10/02/2025 Ancillary Procedure [address] [address] Magdalena Fry MD [address] [place] [address] [phone] Scheduled Referrals Name Type Priority Associated Diagnoses Orde r Schedule GASTROENTEROLOGY ADULT REF PROCEDURE ONLY [facility] ; No Preference - GI Provider Only Referral Routine Special screening for malignant neoplasms, colon Ordered: 12/08/2019 documented as of this encounter Visit Diagnoses Diagnosis Special screening for malignant neoplasms, colon- Primary documented in this encounter Care Teams Bench Repair Technician Relationship Specialty Start Date End Date Alex Rao MD PCP - General Internal Medicine 09/19/19 Alex Rao MD [address] [facility] [place] [address] Assigned PCP 12/04/19 02/18/20 Beni Puga MD PhD [address] [facility] [place] [address] Assigned PCP 02/19/20 02/25/20 Alex Rao MD [address] [facility] [place] [address] Assigned PCP 02/26/20 03/20/21 Nate Leong MD [address] [place] [address] Assigned Surgical Provider 08/17/20 11/07/22 Sharri Hdez MD [address] [place] [address] 101 [place], [place] 668665 Assigned Endocrinology Provider 12/16/20 03/16/24 Alex Rao MD [address] [address] Assigned PCP 03/21/21 Alex Rao MD [address] [facility] [address] [place] [address] Referring Physician Internal Medicine 04/02/22 Russell Agosto MD [address] [address] Neurology 04/02/22 Magdalena Fry MD [address] [address] Assigned Heart and Vascular Provider 04/26/22 02/15/24 Doris Chaney [facility] [address] [place] [phone] Pharmacist Pharmacist 07/21/22 Doris Chaney [facility] [address] [place] [phone] Assigned MTM Pharmacist 07/26/2202/14 [place] [address] [place] [phone] Nephrology 05/14/23 documented as of this encounter
--- OUTSIDE RECORDS SUMMARY | 2025-04-25 01:41 | XMS_ITS | Encounter Summary ---
Author Organization [place] Address [address] [place] [address] Care Team Providers Care Loan Servicing Officer Name Role Phone Antonio Celeste MD Primary Care Provider U nealsharon Bill Bowens PA-C Primary Care Provider + Bill Bowens PA-C Unavailable [phone] Bill Bowens PA-C Unavailable [phone] Alex Rao MD Primary Care Provider [phone] Alex Rao MD Unavailable [phone] Beni Puga MD PhD Unavailable Alex Rao MD Unavailable [phone] Nate Leong MD Unavailable [phone] Sharri Hdez MD Unavailable [phone] Alex Rao MD Unavailable Alex Rao MD Unavailable [phone] Russell Agosto MD Unavailable [phone] Magdalena Fry MD Unavailable Doris Chaney [facility] Unavailable [phone] Doris Chaney [facility] Unavailable [phone] Canelo Kelley MD Unavailable Encounter Details Date Type Department Care Team (Late st Contact Info) Description 12/29/2012 MyC Medical Advice [address] [phone] Taiwo Yañez Social History Tobacco Use Types [...] AM CDT Legal Sex Male 4:10 AM CANADIAN BACON TIER Gender Identity Male 11/22/2018 10:40 AM CANADIAN BACON TIER Sexual Orientation Straight 11/22/2018 10 :40 AM CANADIAN BACON TIER Occupation Industry Job Start Date Job 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- [employer] Not on file Not on file Not on file documented as of this encounter Plan of Treatment Upcoming Encounters Date Type Department Care Team (Late st Contact Info) Description 06/30/2025 Ancillary Procedure [address] [address] Magdalena Fry MD [address] [place] [address] 10/02/2025 Ancillary Procedure [address] [phone] Magdalena Fry MD [address] [place] [address] [phone] documented as of this encounter Visit Diagnoses Not on filedocumented in this encounter Care Teams Loan Servicing Officer Relationship Specialty Start Date End Date Antonio Celeste MD NO INFO AVAILABLE 08/25/2022 PCP - General 03/24/03 02/19/15 Bill Bowens PA-C NO INFO AVAILABLE 08/25/2022 PCP - General Physician Instructor Creeler 02/20/15 09/18/19 Bill Bowens PA-C [address] [address] PCP - Assigned PCP 01/14/15 12/28/18 Alex Rao MD [address] [address] PCP - General Internal Medicine 09/19/19 Bill Bowens PA-C [address] [address] Assigned PCP 01/14/15 12/03/19 Alex Rao MD [address] [place] [address] Assigned PCP 12/04/19 02/18/20 Beni Puga MD PhD [address] [facility] [address] Assigned PCP 02/19/20 02/25/20 Alex Rao MD [address] [place] [address] Assigned PCP 02/26/20 03/20/21 Nate Leong MD [address] [place] [address] Assigned Surgical Provider 08/17/20 11/07/22 Sharri Hdez MD 420 [facility] 101 [place] [address] Assigned Endocrinology Provider 12/16/20 03/16/24 Alex Rao MD 63[address] [facility] [address] Assigned PCP 03/21/21 Alex Rao MD [address] [facility] [address] Referring Physician Internal Medicine 04/02/22 Russell Agosto MD 420 [facility] [address] [place] [address] Neurology 04/02/22 Magdalena Fry MD [address] [place] [address] Assigned Heart and Vascular Provider 04/26/22 02/15/24 Doris Chaney [facility] [address] [phone] Pharmacist Pharmacist 07/21/22 Doris Chaney [facility] [address] [phone] Assigned MTM Pharmacist 07/26/2202/14 [place] [address] [phone] Nephrology 05/14/23 documented as of this encounter
--- OUTSIDE RECORDS SUMMARY | 2025-04-25 01:41 | XMS_ITS | Encounter Summary ---
Author Organization [facility] Address [address] [place] [address] Care Team Providers Care Bulk Tank Driver Name Role Phone Alex Rao MD Primary Care Provider Alex Rao MD Unavailable [phone] Nate Leong MD Unavailable [phone] Sharri Hdez MD Unavailable Alex Rao MD Unavailable [phone] Alex Rao MD Unavailable [phone] Russell Agosto MD Unavailable [phone] Magdalena Fry MD Unavailable Doris Chaney [facility] Unavailable Doris Chaney [facility] Unavailable Canelo Kelley MD Unavailable Reason for Visit * Reason Comments Medication Refill Encounter Details Date Type Department Care Team (Late st Contact Info) Description [facility] [address] [address] Alex Rao MD [address] [place] [address] Medication Refill Social History Tobacco [...] AM CDT Legal Sex Male 4:10 AM GASKET SUPERVISOR Gender Identity Male 11/22/2018 10:40 AM GASKET SUPERVISOR Sexual Orientation Straight 11/22/2018 10 :40 AM GASKET SUPERVISOR Occupation Industry Job Start Date Job 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- [employer] Not on file Not on file Not on file documented as of this encounter Miscellaneous Notes * Telephone Encounter - Dayna Lockhart RN - 12/05/2020 5:31 PM CST Routing refill request to provider for review/approval because: Drug not on the [facility] refill protocol Dayna Lockhart RN, BSN, PHN ET SUPERVISOR documented in this encounter Plan of Treatment Upcoming Encounters Date Type Department Care Team (Late st Contact Info) Description 06/30/2025 Ancillary Procedure [address] [address] Magdalena Fry MD [address] [place] [address] 049755 10/02/2025 Ancillary Procedure [address] [address] Magdalena Fry MD [address] [place] [address] documented as of this encounter Visit Diagnoses Diagnosis Type 2 diabetes mellitus without complication, without long-term current use of insulin (H) documented in this encounter Care Teams Bulk Tank Driver Relationship Specialty Start Date End Date Alex Rao MD PCP - General Internal Medicine 09/19/19 Alex Rao MD [address] [place] [address] Assigned PCP 02/26/20 03/20/21 Nate Leong MD [address] [address] Assigned Surgical Provider 08/17/20 11/07/22 Sharri Hdez MD [address] 646245 Assigned Endocrinology Provider 12/16/20 03/16/24 Alex Rao MD [address] [place] [address] Assigned PCP 03/21/21 Alex Rao MD [address]20 [place] [address] Referring Physician Internal Medicine 04/02/22 Russell Agosto MD [address] 631665 Neurology 04/02/22 Magdalena Fry MD [address] 866805 Assigned Heart and Vascular Provider 04/26/22 02/15/24 Doris Chaney, [facility] [address] [place] [phone] Pharmacist Pharmacist 07/21/22 Doris Chaney [facility] [address] [phone] Assigned MTM Pharmacist 07/26/2202/14 [place] [address] [phone] Nephrology 05/14/23 documented as of this encounter
--- OUTSIDE RECORDS SUMMARY | 2025-04-25 01:41 | XMS_ITS | Encounter Summary ---
Author Organization [place] Address [address] [place] [address] Care Team Providers Care Sign Hanger Name Role Phone Antonio Celeste MD Primary Care Provider U nealsharon Bill Bowens PA-C Primary Care Provider + Bill Bowens PA-C Unavailable [phone] Bill Bowens PA-C Unavailable [phone] Alex Rao MD Primary Care Provider [phone] Alex Rao MD Unavailable [phone] Beni Puga MD PhD Unavailable Alex Rao MD Unavailable [phone] Nate Leong MD Unavailable [phone] Sharri Hdez MD Unavailable [phone] Alex Rao MD Unavailable [phone] Alex Rao MD Unavailable [phone] Russell Agosto MD Unavailable [phone] Magdalena Fry MD Unavailable Doris hCaney [facility] Unavailable [phone] Doris Chaney [facility] Unavailable [phone] Canelo Kelley MD Unavailable Encounter Details Date Type Department Care Team (Late st Contact Info) Description 02/15/2013 MyC Medical Advice [address] [address] Taiwo Yañez Social History Tobacco [...] AM CDT Legal Sex Male 4:10 AM GENERAL PURCHASING AGENT Gender Identity Male 11/22/2018 10:40 AM GENERAL PURCHASING AGENT Sexual Orientation Straight 11/22/2018 10 :40 AM GENERAL PURCHASING AGENT Occupation Industry Job Start Date Job 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- [employer] Not on file Not on file Not on file documented as of this encounter Plan of Treatment Upcoming Encounters Date Type Department Care Team (Late st Contact Info) Description 06/30/2025 Ancillary Procedure [address] [address] Magdalena Fry MD [address] [place] [address] 10/02/2025 Ancillary Procedure [address] [phone] Magdalena Fry MD [address] [place] [address] [phone] documented as of this encounter Visit Diagnoses Not on filedocumented in this encounter Care Teams Sign Hanger Relationship Specialty Start Date End Date Antonio Celeste MD NO INFO AVAILABLE 08/25/2022 PCP - General 03/24/03 02/19/15 Bill Bowens PA-C NO INFO AVAILABLE 08/25/2022 PCP - General Physician Switchboard Wire Worker Helper 02/20/15 09/18/19 Bill Bowens PA-C [address] [address] PCP - Assigned PCP 01/14/15 12/28/18 Alex Rao MD [address] [address] PCP - General Internal Medicine 09/19/19 Bill Bowens PA-C [address] [address] Assigned PCP 01/14/15 12/03/19 Alex Rao MD 6320 [facility] [address] Assigned PCP 12/04/19 02/18/20 Beni Puga MD PhD [address] [place] [address] Assigned PCP 02/19/20 02/25/20 Alex Rao MD 6320 [facility] [address] Assigned PCP 02/26/20 03/20/21 Nate Leong MD [address] [place] [address] Assigned Surgical Provider 08/17/20 11/07/22 Sharri Hdez MD 420 [facility] 101 [place] [address] Assigned Endocrinology Provider 12/16/20 03/16/24 Alex Rao MD 6320 [facility] [place] [address] Assigned PCP 03/21/21 Alex Rao MD [address] [facility] [place] [address] Referring Physician Internal Medicine 04/02/22 Russell Agosto MD 420 [facility] [address] [place] [address] Neurology 04/02/22 Magdalena Fry MD [address] [place] [address] Assigned Heart and Vascular Provider 04/26/22 02/15/24 Doris Chaney [facility] [address] [phone] Pharmacist Pharmacist 07/21/22 Doris Chaney [facility] [address] [phone] Assigned MTM Pharmacist 07/26/2202/14 [place] [address] [phone] Nephrology 05/14/23 documented as of this encounter
--- OUTSIDE RECORDS SUMMARY | 2025-04-25 01:41 | XMS_ITS | Encounter Summary ---
Author Organization [place] Address [address] [place] [address] Care Team Providers Care Senior Back End Java Developer Name Role Phone Antonio Celeste MD Primary Care Provider U nealsharon Bill Bowens PA-C Primary Care Provider + Bill Bowens PA-C Unavailable [phone] Bill Bowens PA-C Unavailable [phone] Alex Rao MD Primary Care Provider [phone] Alex Rao MD Unavailable [phone] Beni Puga MD PhD Unavailable Alex Rao MD Unavailable [phone] Nate Leong MD Unavailable [phone] Sharri Hdez MD Unavailable [phone] Alex Rao MD Unavailable [phone] Alex Rao MD Unavailable [phone] Russell Agosto MD Unavailable [phone] Magdalena Fry MD Unavailable Doris Chaney [facility] Unavailable [phone] Doris Chaney [facility] Unavailable [phone] Canelo Kelley MD Unavailable Encounter Details Date [...] AM CDT Legal Sex Male 4:10 AM ARMATURE WINDER REPAIR Gender Identity Male 11/22/2018 10:40 AM ARMATURE WINDER REPAIR Sexual Orientation Straight 11/22/2018 10 :40 AM ARMATURE WINDER REPAIR Occupation Industry Job Start Date Job 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- [employer] Not on file Not on file Not on file documented as of this encounter Plan of Treatment Upcoming Encounters Date Type Department Care Team (Late st Contact Info) Description 06/30/2025 Ancillary Procedure [address] [address] Magdalena Fry MD [address] [place] [address] 355625 10/02/2025 Ancillary Procedure [address] [address] Magdalena Fry MD [address] [place] [address] [phone] documented as of this encounter Visit Diagnoses Not on filedocumented in this encounter Care Teams Senior Back End Java Developer Relationship Specialty Start Date End Date Antonio Celeste MD NO INFO AVAILABLE 08/25/2022 PCP - General 03/24/03 02/19/15 Bill Bowens PA-C NO INFO AVAILABLE 08/25/2022 PCP - General Physician Hand Lacer 02/20/15 09/18/19 Bill Bowens PA-C [address] [place] [address] PCP - Assigned PCP 01/14/15 12/28/18 Alex Rao MD [address] [place] [address] PCP - General Internal Medicine 09/19/19 Bill Bowens PA-C [address] [place] [address] Assigned PCP 01/14/15 12/03/19 Alex Rao MD [address] [facility] [place] 923401 Assigned PCP 12/04/19 02/18/20 Beni Puga MD PhD [address] [facility] [place] [address] Assigned PCP 02/19/20 02/25/20 Alex Rao MD [address] [facility] [place] [address] Assigned PCP 02/26/20 03/20/21 Nate Leong MD [address] [place] 414145 Assigned Surgical Provider 08/17/20 11/07/22 Sharri Hdez MD [address] [place] [address] 783615 Assigned Endocrinology Provider 12/16/20 03/16/24 Alex Rao MD [address] [facility] [place] 408281 Assigned PCP 03/21/21 Alex Rao MD [address] [address] Referring Physician Internal Medicine 04/02/22 Russell Agosto MD [address] [place] [address] 894115 Neurology 04/02/22 Magdalena Fry MD [address] [place] [address] 247175 Assigned Heart and Vascular Provider 04/26/22 02/15/24 Doris Chaney [facility] [address] [address] Pharmacist Pharmacist 07/21/22 [facility] [address] [phone] Assigned MTM Pharmacist 07/26/2202/14 [place] [address] [phone] Nephrology 05/14/23 documented as of this encounter
--- OUTSIDE RECORDS SUMMARY | 2025-04-25 01:41 | XMS_ITS | Encounter Summary ---
Author Organization [place] Address [address] [place] [address] Care Team Providers Care Bridal Gown Fitter Name Role Phone Antonio Celeste MD Primary Care Provider U nealsharon Blil Bowens PA-C Primary Care Provider + Bill Bowens PA-C Unavailable [phone] Bill Bowens PA-C Unavailable [phone] Alex Rao MD Primary Care Provider [phone] Alex Rao MD Unavailable [phone] Beni Puga MD PhD Unavailable Alex Rao MD Unavailable [phone] Nate Leong MD Unavailable [phone] Sharri Hdez MD Unavailable [phone] Alex Rao MD Unavailable [phone] Alex Rao MD Unavailable [phone] Russell Agosto MD Unavailable [phone] Magdalena Fry MD Unavailable Doris Chaney [facility] Unavailable [phone] Doris Chaney [facility] Unavailable [phone] Canelo Kelley MD Unavailable Reason for Visit * Reason Onset Date Comments Previsit 07/11/2013 Encounter Details Date Type Department Care Team (Late Contact Info) Description 07/11/2013 MyC Medical Advice [address] [phone] Enmanuelreyclaudette [place] Previsit Social History Tobacco Use Types Packs/Day [...] AM CDT Legal Sex Male 4:10 AM CONVENIENCE STORE MANAGER Gender Identity Male 11/22/2018 10:40 AM CONVENIENCE STORE MANAGER Sexual Orientation Straight 11/22/2018 10 :40 AM CONVENIENCE STORE MANAGER Occupation Industry Job Start Date Job 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- [employer] Not on file Not on file Not on file documented as of this encounter Plan of Treatment Upcoming Encounters Date Type Department Care Team (Late st Contact Info) Description 06/30/2025 Ancillary Procedure [address] [address] Magdalena Fry MD [address] [place] [address] [phone] 10/02/2025 Ancillary Procedure [address] [address] Magdalena Fry MD [address] [place] [address] [phone] documented as of this encounter Visit Diagnoses Not on filedocumented in this encounter Care Teams Bridal Gown Fitter Relationship Specialty Start Date End Date Antonio Celeste MD NO INFO AVAILABLE 08/25/2022 PCP - General 03/24/03 02/19/15 Bill Bowens PA-C NO INFO AVAILABLE 08/25/2022 PCP - General Physician Hot Dog Vendor 02/20/15 09/18/19 Bill Bowesn PA-C [address] [address] PCP - Assigned PCP 01/14/15 12/28/18 Alex Rao MD [address] [address] PCP - General Internal Medicine 09/19/19 Bill Bowens PA-C [address] [address] Assigned PCP 01/14/15 12/03/19 Alex Rao MD [address] [place] [address] Assigned PCP 12/04/19 02/18/20 Beni Puga MD PhD [address] [place] [address] Assigned PCP 02/19/20 02/25/20 Alex Rao MD [address] [place] [address] Assigned PCP 02/26/20 03/20/21 Nate Leong MD [address] [place] [address] Assigned Surgical Provider 08/17/20 11/07/22 Sharri Hdez MD 420 [facility] 101 [place], [place] 132645 Assigned Endocrinology Provider 12/16/20 03/16/24 Alex Rao MD 6320 [facility] [place] [place] 780641 Assigned PCP 03/21/21 Alex Rao MD 63[address] [facility] [place] [place] 844341 Referring Physician Internal Medicine 04/02/22 Russell Agosto MD 420 [facility] 486 [place], [place] 502045 Neurology 04/02/22 Magdalena Fry MD 420 [facility] [address] [place], [place] 490135 Assigned Heart and Vascular Provider 04/26/22 02/15/24 Doris Chaney [facility] [address] [phone] Pharmacist Pharmacist 07/21/22 Doris Chaney [facility] [address] [phone] Assigned MTM Pharmacist 07/26/2202/14 [place] [address] [phone] Nephrology 05/14/23 documented as of this encounter
--- OUTSIDE RECORDS SUMMARY | 2025-04-25 01:41 | XMS_ITS | Encounter Summary ---
Author Organization [place] Address [address] [place] [address]. [place] [address] Care Team Providers Care Elementary Assistant Principal Name Role Phone Alex Rao MD Primary Care Provider [phone] Alex Rao MD Unavailable [phone] Alex Rao MD Unavailable [phone] Russell Agosto MD Unavailable [phone] Doris Chaney [facility] Unavailable [phone] Canelo Kelley MD Unavailable Encounter Details Date Type Department Care Team (Late st Contact Info) Description 09/29/2024 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- [employer] Not on file Not on file Not on file documented as of this encounter Plan of Treatment Upcoming Encounters Date Type Department Care Team (Late st Contact Info) Description 06/30/2025 Ancillary Procedure [address] [phone] Magdalena Fry MD [address] [place] [address] [phone] 10/02/2025 Ancillary Procedure [address] [phone] Magdalena Fry MD [address] [place] [address] [phone] documented as of this encounter Visit Diagnoses Not on filedocumented in this encounter Additional Health Concerns Assessment Noted Time PHQ-9 Depression Total Score: 9 06/10/20 22 11:44 AM CDT documented as of this encounter Care Teams Elementary Assistant Principal Relationship Specialty Start Date End Date Alex Rao MD PCP - General Internal Medicine 09/19/19 Alex Rao MD [address] [place] [address] Assigned PCP 03/21/21 Alex Rao MD [address] [place] [address] Referring Physician Internal Medicine 04/02/22 Russell Agosto MD [address] [place] [address] 226805 Neurology 04/02/22 Doris Chaney, [facility] [address] [phone] Pharmacist Pharmacist 07/21/22 [place] [address] [phone] Nephrology 05/14/23 documented as of this encounter
--- OUTSIDE RECORDS SUMMARY | 2025-04-25 01:41 | XMS_ITS | Encounter Summary ---
Author Organization [place] Address [address] [place] [address] Care Team Providers Care Adaptive Physical Education Specialist Name Role Phone Antonio Celeste MD Primary Care Provider U nealsharon Bill Bowens PA-C Primary Care Provider + Bill Bowens PA-C Unavailable [phone] Bill Bowens PA-C Unavailable [phone] Alex Rao MD Primary Care Provider [phone] Alex Rao MD Unavailable [phone] Beni Puga MD PhD Unavailable Alex Rao MD Unavailable [phone] Nate Leong MD Unavailable [phone] Sharri Hdez MD Unavailable [phone] Alex Rao MD Unavailable [phone] Alex Rao MD Unavailable [phone] Russell Agosto MD Unavailable [phone] Magdalena Fry MD Unavailable Doris Chaney [facility] Unavailable [phone] Doris Chaney [facility] Unavailable [phone] Canelo Kelley MD Unavailable Encounter Details Date Type Department Care Team (Late st Contact Info) Description 09/15/2012 MyC Medical Advice [address] [phone] Taiwo Yañez Social History Tobacco Use Types [...] AM CDT Legal Sex Male 4:10 AM PRINTING EQUIPMENT MECHANIC APPRENTICE Gender Identity Male 11/22/2018 10:40 AM PRINTING EQUIPMENT MECHANIC APPRENTICE Sexual Orientation Straight 11/22/2018 10 :40 AM PRINTING EQUIPMENT MECHANIC APPRENTICE Occupation Industry Job Start Date Job 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- [employer] Not on file Not on file Not on file documented as of this encounter Plan of Treatment Upcoming Encounters Date Type Department Care Team (Late st Contact Info) Description 06/30/2025 Ancillary Procedure [address] [address] Magdalena Fry MD [address] [place] [address] 10/02/2025 Ancillary Procedure [address] [phone] Magdalena Fry MD [address] [place] [address] [phone] documented as of this encounter Visit Diagnoses Not on filedocumented in this encounter Care Teams Adaptive Physical Education Specialist Relationship Specialty Start Date End Date Antonio Celeste MD NO INFO AVAILABLE 08/25/2022 PCP - General 03/24/03 02/19/15 Bill Bowens PA-C NO INFO AVAILABLE 08/25/2022 PCP - General Physician Product Safety Engineer 02/20/15 09/18/19 Bill Bowens PA-C [address] [address] PCP - Assigned PCP 01/14/15 12/28/18 Alex Rao MD [address] [address] PCP - General Internal Medicine 09/19/19 Bill Bowens PA-C [address] [address] Assigned PCP 01/14/15 12/03/19 Alex Rao MD 6320 [place] [address] Assigned PCP 12/04/19 02/18/20 Beni Puga MD PhD [address] [place] [address] Assigned PCP 02/19/20 02/25/20 Alex Rao MD [address] [place] [address] Assigned PCP 02/26/20 03/20/21 Nate Leong MD [address] [place] [address] Assigned Surgical Provider 08/17/20 11/07/22 Sharri Hdez MD 420 [facility] 101 [place] [address] Assigned Endocrinology Provider 12/16/20 03/16/24 Alex Rao MD 6320 [facility] [place] [address] Assigned PCP 03/21/21 Alex Rao MD [address] [facility] [place] [address] Referring Physician Internal Medicine 04/02/22 Russell Agosto MD 420 [facility] 486 [place] [address] Neurology 04/02/22 Magdalena Fry MD [address] [place] [address] Assigned Heart and Vascular Provider 04/26/22 02/15/24 Doris Chaney [facility] [address] [phone] Pharmacist Pharmacist 07/21/22 Doris Chaney [facility] [address] [phone] Assigned MTM Pharmacist 07/26/2202/14 [place] [address] [phone] Nephrology 05/14/23 documented as of this encounter
--- OUTSIDE RECORDS SUMMARY | 2025-04-25 01:41 | XMS_ITS | Encounter Summary ---
Author Organization [place] Address [address] [place] [address] Care Team Providers Care Flight Communications Specialist Name Role Phone Alex Rao MD Primary Care Provider [phone] Alex Rao MD Unavailable [phone] Nate Leong MD Unavailable [phone] Sharri Hdez MD Unavailable [phone] Alex Rao MD Unavailable [phone] Alex Rao MD Unavailable [phone] Russell Agosto MD Unavailable [phone] Magdalena Fry MD Unavailable Doris Chaney [facility] Unavailable Doris Chaney [facility] Unavailable [phone] Canelo Kelley MD Unavailable Encounter Details Date Type Department Care Team (Late st Contact Info) Description 12/07/2020 [facility] [address] [address] Shilpa Barnett CMA Social History [...] AM CDT Legal Sex Male 4:10 AM WET PRESS TENDER Gender Identity Male 11/22/2018 10:40 AM WET PRESS TENDER Sexual Orientation Straight 11/22/2018 10 :40 AM WET PRESS TENDER Occupation Industry Job Start Date Job 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 No / Unsure 12/10/2020 9:51 AM WET PRESS TENDER documented as of this encounter Plan of Treatment Upcoming Encounters Date Type Department Care Team (Late st Contact Info) Description 06/30/2025 Ancillary Procedure [address] [address] Magdalena Fry MD [address] [place] [address] [phone] 10/02/2025 Ancillary Procedure [address] [address] Magdalena Fry MD [address] [place] [address] [phone] documented as of this encounter Visit Diagnoses Not on filedocumented in this encounter Care Teams Flight Communications Specialist Relationship Specialty Start Date End Date Alex Rao MD PCP - General Internal Medicine 09/19/19 Alex Rao MD [address]20 [place] [address] Assigned PCP 02/26/20 03/20/21 Nate Leong MD [address] [place] [address] Assigned Surgical Provider 08/17/20 11/07/22 Sharri Hdez MD 420 [facility] 101 [place] [address] Assigned Endocrinology Provider 12/16/20 03/16/24 Alex Rao MD [address] [place], [place] 081681 Assigned PCP 03/21/21 Alex Rao MD [address] [place], [place] 571041 Referring Physician Internal Medicine 04/02/22 Russell Agosto MD 420 [facility] 486 [place], [place] 644835 Neurology 04/02/22 Magdalena Fry MD 420 [facility] 486 [place], [place] 383895 Assigned Heart and Vascular Provider 04/26/22 02/15/24 Doris Chaney [facility] [address] [phone] Pharmacist Pharmacist 07/21/22 Doris Chaney [facility] [address] [phone] Assigned MTM Pharmacist 07/26/2202/14 [place] [address] [phone] Nephrology 05/14/23 documented as of this encounter
--- OUTSIDE RECORDS SUMMARY | 2025-04-25 01:41 | XMS_ITS | Encounter Summary ---
Author Organization [place] Address [address] [place] [address] Care Team Providers Care Armature Rewinder Name Role Phone Alex Rao MD Primary Care Provider [phone] Sharri Hdez MD Unavailable [phone] Alex Rao MD Unavailable [phone] Alex Rao MD Unavailable [phone] Russell Agosto MD Unavailable [phone] Magdalena Fry MD Unavailable Doris Chaney [facility] Unavailable Doris Chaney [facility] Unavailable Canelo Kelley MD Unavailable Encounter Details Date Type Department Care Team (Late st Contact Info) Description 04/09/2023 [facility] [address] [place] [address] Taiwo Yañez Social History Tobacco [...] AM CDT Legal Sex Male 4:10 AM ROLLING MACHINE OPERATOR Gender Identity Male 11/22/2018 10:40 AM ROLLING MACHINE OPERATOR Sexual Orientation Straight 11/22/2018 10 :40 AM ROLLING MACHINE OPERATOR Occupation Industry Job Start [...] Contact Info) Description 06/30/2025 Ancillary Procedure [address] [address] Magdalena Fry MD [address] [place] [address] [phone] 10/02/2025 Ancillary Procedure [address] [address] Magdalena Fry MD [address] [place] [address] [phone] documented as of this encounter Visit Diagnoses Not on filedocumented in this encounter Additional Health Concerns Assessment Noted Time PHQ-9 Depression Total Score: 9 06/10/20 22 11:44 AM CDT documented as of this encounter Care Teams Armature Rewinder Relationship Specialty Start Date End Date Alex Rao MD PCP - General Internal Medicine 09/19/19 Sharri Hdez MD [address] [place] [address] Assigned Endocrinology Provider 12/16/20 03/16/24 Alex Rao MD [address] [place] [address] Assigned PCP 03/21/21 Alex Rao MD [address] [place] [address] Referring Physician Internal Medicine 04/02/22 Russell Agosto MD [address] [address] Neurology 04/02/22 Magdalena Fry MD [address] [address] Assigned Heart and Vascular Provider 04/26/22 02/15/24 Doris Chaney [facility] [address] [phone] Pharmacist Pharmacist 07/21/22 Doris Chaney [facility] [address] [phone] Assigned MTM Pharmacist 07/26/2202/14 [place] [address] [phone] Nephrology 05/14/23 documented as of this encounter
--- OUTSIDE RECORDS SUMMARY | 2025-04-25 01:41 | XMS_ITS | Encounter Summary ---
Author Organization [facility] Address [address] [place] [id number] Care Team Providers Care Supervisor Electronic Testing Name Role Phone Bill Bowens PA-C Primary Care Provider + Blil Bowens PA-C Unavailable [phone] Alex Rao MD Primary Care Provider Alex Rao MD Unavailable [phone] Beni Puga MD PhD Unavailable Alex Rao MD Unavailable [phone] Nate Leong MD Unavailable Sharri Hdez MD Unavailable [phone] Alex Rao MD Unavailable [phone] Alex aRo MD Unavailable [phone] Russell Agosto MD Unavailable [phone] Magdalena Fry MD Unavailable Doris Chaney [facility] Unavailable [phone] Doris Chaney [facility] Unavailable [phone] Canelo Kelley MD Unavailable Encounter Details Date Type Department Care Team (Late st Contact Info) Description 08/25/2019 MyC Medical Advice M [address] [phone] Nate Leong MD [address] [id number] Social History Tobacco Use Types Packs/Day Years [...] AM CDT Legal Sex Male 4:10 AM ALLOPATHIC DOCTOR Gender Identity Male 11/22/2018 10:40 AM ALLOPATHIC DOCTOR Sexual Orientation Straight 11/22/2018 10 :40 AM ALLOPATHIC DOCTOR Occupation Industry Job Start Date Job 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- [employer] Not on file Not on file Not on file documented as of this encounter Plan of Treatment Upcoming Encounters Date Type Department Care Team (Late st Contact Info) Description 06/30/2025 Ancillary Procedure [address] [phone] Magdalena Fry MD [address] [place] [phone] 10/02/2025 Ancillary Procedure M [address] [phone] Magdalena Fry MD [address] [place] [address] [phone] documented as of this encounter Visit Diagnoses Not on filedocumented in this encounter Care Teams Supervisor Electronic Testing Relationship Specialty Start Date End Date Bill Bowens PA-C PCP - General Physician Regional Engineer 02/20/15 09/18/19 Alex Rao MD [address] [place] [id number] PCP - General Internal Medicine 09/19/19 Bill Bowens PA-C [address] [place] [address] Assigned PCP 01/14/15 12/03/19 Alex Rao MD [address] [facility] [place] [id number] Assigned PCP 12/04/19 02/18/20 Beni Puga MD PhD [address] [facility] [place] [address] Assigned PCP 02/19/20 02/25/20 Alex Rao MD [address] [facility] [place] [address] Assigned PCP 02/26/20 03/20/21 Nate Leong MD [address] 419165 Assigned Surgical Provider 08/17/20 11/07/22 Sharri Hdez MD [address] [place] [address] [address] [place], [place] [id number] Assigned Endocrinology Provider 12/16/20 03/16/24 Alex Rao MD [address] [place] [address] Assigned PCP 03/21/21 Alex Rao MD [address] [facility] [place] [address] Referring Physician Internal Medicine 04/02/22 Russell Agosto MD [address] [facility] [address] [facility] [address] [place], [place] [id number] Neurology 04/02/22 Magdalena Fry MD [address] [facility] [address] [place], [place] [address] Assigned Heart and Vascular Provider 04/26/22 02/15/[facility] [address] [place] [phone] Pharmacist Pharmacist 07/21/22 [facility] [address] [place] [phone] Assigned MTM Pharmacist 07/26/2202/14 [place] [address] [place] [phone] Nephrology 05/14/23 documented as of this encounter
== END 2025-04-22 08:33 | disposition home or self-care (01) ==
PROVIDERS: PCP Family Medicine; Visit Provider Internal Medicine
DX: R53.1 Weakness (principal); I95.9 Hypotension, unspecified
CPT/HCPCS: A0998

== ENCOUNTER 2025-04-22 09:06 | Emergency (ER) | payer MEDICARE, SELFPAY ==
--- OUTSIDE RECORDS SUMMARY | 2025-03-07 14:00 | XMS_ITS | Encounter Summary ---
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 [address] [place] [phone] Phone: tel: fax: [facility] Referral ID Status Reason Start Date Expiration Date Visits Re quested Visits Authorized [id number] Closed 02/24/2025 08/26/2026 1 1 Encounter Details Date Type Department Care Team (Latest Contact Info) Description 03/07/2025 2:00 PM CDT Comprehensive Visit Department of Dental Specialties in [place], [place] [address] [place] [phone] Yuliya Almeida D.D.S., M.S. 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 No 02/14/2025 Humiliation, Afraid, Rape, and Kick questionnair e Answer Date Recorded Within the last year, have y ou been afraid of your partner or ex-partner? No 02/14/2025 Within the last year, have y ou been humiliated or emotionally abused in other ways by your partner or ex-partner? No Within the last year, have y ou been kicked, hit, slapped, or otherwise physically hurt by your partner or ex-partner? No 02/14/2025 Within the last year, have y ou been raped or forced to have any kind of sexual activity by your partner or ex-partner? No 02/14/2025 Hunger Vital Sign Answer Date Recorded Within the past 12 months, y ou worried that your food would run out before you got the money to buy more. Never true 02/15/20 25 Within the past 12 months, t he food you bought just didn't last and you didn't have money to get more. Never true 02/14/2025 PRAPARE - Transportation Answer Date Re corded In the past 12 months, has l ack of transportation kept you from medical appointments or from getting medications? No 01/25 In the past 12 months, has l ack of transportation kept you from meetings, work, or from getting things needed for daily living? No 02/14/2025 Housing Stability Answer Date Recorded What is your living situation today? I have a [facility] place to live 02/14/2025 Sex and Gender Information Value Date Recorded Sex Assigned at Male 01/06/2025 6:20 PM CDT Legal Sex Male 10:38 AM [employer] Gender Identity Male 01/06/2025 6:20 PM CDT Sexual Orientation Straight 01/06/2025 6: 20 PM CDT documented as of this encounter Consult Notes * Yuliya Almeida D.D.S., M.S. - 03/07/2025 2:00 PM CDT SUBJECTIVE REASON FOR CONSULT Pillo Cardenas is a 74 y.o. male who presents for a Prosthodontic consultation regarding rehabilitation of implants placed in a maxillary fibula free flap reconstruction. Patient was referred by Baljit Ramsey M.D., D.D.S. for consultation regarding prosthodontic rehabilitation. Patient reports the following oral concerns: none at this time, healing well. HISTORY OF PRESENT ILLNESS No contraindications to dental treatment. 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 02/14/25 Dr. Ramsey placed 4 Straumann TLC NT endosseous implants. All torqued to greater than 35 Ncm. Two 1.5-mm cover screws were adapted to each of the implants OBJECTIVE PHYSICAL EXAM Clinical oral examination was accomplished. Dental Findings: Patient is occluding on the flap, posterior occlusion is intact, #12 is out of occlusal. The flap is well infused, tissue is fluctuant, stitches are still intact. Small dehiscence noted on the posterior flap toward the soft palat. Missing teeth: 1, 2, 3, 4, 5, 6, 7, 8, 9, 10, 11, 16, 17, and 32 Caries/Defective restorations: n/a Periodontal Findings: Generalized probing depths: 1-4 mm Bleeding upon probing: Yes, maxillary posterior teeth adjacent to flap Mobility: n/a Oral hygiene: Good Plaque: Subgingival - Light; Supragingival - Light Calculus: Subgingival - Light; Supragingival - Light Temporomandibular Joints: Full range of motion. Negative for popping, clicking, deflection, or deviation. DIAGNOSTICS Previous radiographs were reviewed for today's encounter. Panoramic radiograph taken and reviewed. Image(s) revealed Sinuses are pneumatized with findings: FFF with metal plating and 4 endosseous implants placed in the right sinus region , there are no central bony or odontogenic lesions noted in the body or ascending rami of the mandible, condyles appear angled/andre in shape, well corticated and symmetrical, inferior alveolar nerve(s) can be traced bilaterally, no active caries noted, radiopacities noted in region correlating with surgery performed at at the right neck and maxillary regions, feeding tube noted, and dental roots appear normal with no signs of resorption or periapical radiolucencies. However, this radiograph is non- diagnostic for all but the largest carious lesions. 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 Intervention includes maxillectomy and fibula free flap reconstruction. We discussed the risks, benefits and alternatives of rehabilitation. The effects of a maxillectomy, or removal of a portion of the upper jaw were explained to include, but not limited to, a decreased ability to speak, swallow, and chew. The ultimate goal of treatment is to treat the disease process primarily while also maintain ability to speak, swallow, and chew. Altered anatomy and its effects on mastication and lip competency, nerve innervation alterations and changes, anatomical deficits to the area in terms of limitations of coordination and function were reviewed. The medical necessity for prosthetic reconstruction were explained. Prosthetic rehabilitation functions to restore speech, mastication, deglutition, soft tissue support, esthetics, and generalized function, as well as aides in psychologic support. The generalized timeline and appointment expectations were discussed. Physical models of prostheses were demonstrated during this discussion. Patient is still swollen, necessary records will be taken at the next visit. Evaluation of restorative space will be done at the next visit. Estimates were generated and sent to prior authorization. Options Maxillary resection prosthesis Next Visit: Evaluation of restorative space and obtaining records, discussion of tissue bolster fabrication as needed I spent a total of 30 minutes on the care for this patient today. This included reviewing labs, reviewing images, reviewing prior notes, time spent with the patient, placing new orders, and documenting in the medical history. Madelyn Almaraz initiated documentation on behalf of Yuliya Almeida D.D.S., M.S. who completed documentation and performed the service(s). Cosigned by Marisol Sandra D.D.S. at 03/10/2025 12:49 PM CDT Associated attestation - Marisol Sandra D.D.S. - 03/10/2025 12:49 PM CDT I saw and evaluated the patient, participating in the ewing portions of the service. I reviewed the resident/fellow???s note. I agree with the resident/fellow???s findings and plan. documented in this encounter Plan of Treatment Upcoming Encounters Date Type Department Care Team (Latest Contact Info) Description 05/24/2025 8:00 AM CDT Appointment Department of Laboratory Medicine and Pathology, [facility] in [address] [phone] Lexus Olson APRN, C.N.P. [address] [place] [phone] 05/24/2025 9:00 AM CDT Clinical Support Department of Nutrition and Diabetes Education in [address] [phone] Lexus Olson APRN, C.N.P. [address] [place] [phone] Elizabeth Arias, RebaS.N., R.N. [address] [place] [phone] 05/24/2025 10:15 AM CDT Appointment Department of Radiology, [facility], in [address] [phone] Dallas Lubin APRN, C.N.P., D.N.P. [address] [place] [phone] 05/24/2025 11:00 AM CDT Appointment Division of process validation engineer in [address] [phone] Dallas Lubin APRN, C.N.P., D.N.P. [address] [place] [phone] 05/24/2025 1:30 PM CDT Comprehensive Visit Division of Endocrinology in [place], [place] [address] [place] [phone] Monik Moreland, LARISA, C.N.P., M.S. [address] [place] [phone] 06/20/2025 9:30 AM CDT Office Visit Department of Dental Specialties in [place], [place] [address] [place] [phone] Marisol Sandra D.D.S. 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
--- OUTSIDE RECORDS SUMMARY | 2025-03-31 | XMS_ITS | Encounter Summary ---
Author Organization [facility] Address [address] [place] [address] Care Team Providers Care Pantograph Setter Name Role Phone Alex Rao MD Primary Care Provider [phone] Alex Rao MD Unavailable [phone] Alex Rao MD Unavailable [phone] Russell Agosto MD Unavailable [phone] Doris Chaney [facility] Unavailable [phone] Canelo Kelley MD Unavailable Reason for Visit * CV Testing (Routine) - Closed Specialty Diagnoses / Procedures Referred By Contac t Referred To Contact Diagnoses Cryptogenic stroke (H) Procedures Cardiac Device Check - Remote (Standing ORD 5 count) Magdalena Fry MD Phone: tel: fax: Referral ID Status Reason Start Date Expiration Date Visits Re quested Visits Authorized [id number] Closed 12/21/2023 12/20/2024 5 5 Encounter Details Date Type Department Care Team (Latest Contact Info) Description 03/31/2025 Ancillary Procedure [facility] Heart [phone] Magdalena Fry MD [address] [place] [address] Cryptogenic stroke (H) Social History Tobacco Use Types Packs/Day Years Used Date Smoking Tobacco: Former Cigarettes 0.5 3 0 02/21/1971 - 02/21/1974 Pipe Passive Smoke Exposure: Never Smokeless Tobacco: Former Alcohol Use Standard Drinks/Week Comments Not Currently 0 (1 standard drink = 0.6 oz pur e alcohol) 3 drinks/week PHQ-2 Answer Date Recorded PHQ-2 Score 0 03/26/2023 Adolescent Education Answer Date Record ed Getting School Help Needed Not on file 07/18 Sex and Gender Information Value Date Recorded Sex Assigned at Male 07/18/2019 7:43 AM CDT 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 Gender Identity Male 11/22/2018 10:40 AM TILE FINISHER Sexual Orientation Straight 11/22/2018 10 :40 AM TILE FINISHER Occupation Industry Job Start Date Job 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- [employer] Not on file Not on file Not on file documented as of this encounter Plan of Treatment Upcoming Encounters Date Type Department Care Team (Late st Contact Info) Description 06/30/2025 Ancillary Procedure [address] [address] Magdalena Fry MD [address] [place] [address] [phone] 10/02/2025 Ancillary Procedure [address] [phone] Magdalena Fry MD [address] [place] [address] [phone] documented as of this encounter Procedures Procedure Name Priority Date/Time Associated Diagnosis Comments REMOTE IMPLANTABLE LOOP RECORDER INTERROGATION 30 DAY Routine 03/31/2025 10:38 AM CDT Cryptogenic stroke (H) documented in this encounter Results * REMOTE IMPLANTABLE LOOP RECORDER INTERROGATION 30 DAY (03/31/2025 10:38 AM CDT) Date Time Interrogation Session [id number] [employer] Implantable Pulse Generator Car Cleaner Medtronic [employer] Implantable Pulse Generator Model LNQ22 LINQ II [employer] Implantable Pulse Generator Serial Number [id number] [employer] Type Interrogation Session Remote [facility] Clinic Name [facility] [employer] Implantable Pulse Generator Type Implantable Diagnostic Monitor [employer] Implantable Pulse Generator Implant Date 20220825 [employer] Battery Date Time of Measurements [employer] Atrial Tachy Statistic AT/AF [place] Percent 0 % [employer] Episode Statistic Recent Count 0 [employer] Episode Statistic Type Category AT/AF [employer] Episode Statistic Recent Count 0 [employer] Episode Statistic Type Category ASYSTOLE [employer] Episode Statistic Recent Count 0 [employer] Episode Statistic Type Category THOMAS [employer] Episode Statistic Recent Count 0 [employer] Episode Statistic Type Category Patient Activated [employer] Episode Statistic Recent Date Time Start [employer] Episode Statistic Recent Date Time End [id number] [employer] Episode Statistic Recent Date Time Start [employer] Episode Statistic Recent Date Time End [id number] [employer] Episode Statistic Recent Date Time Start [employer] Episode Statistic Recent Date Time End [id number] [employer] Episode Statistic Recent Date Time Start [employer] Episode Statistic Recent Date Time End [id number] [employer] Anatomical Region Laterality Modality Other 03/31/2025 12:0 8 AM CDT Narrative 04/13/2025 10:45 PM CDT Remote loop recorder transmission received and reviewed. Device transmission sent per MD orders. Device: Medtronic LNQ22 LINQ II Normal Device Function Presenting EGM: NSR 68 bpm Patient Activated Episodes: 0 Tachy Episodes: 0 Pause Episodes: 0 Thomas Episodes: 0 AF Episodes: 0 AT/AF Freeman: 0% Anticoagulant: None PVCs (% beats): 0% Loop recorder battery status = Good Plan: Automatic remote transmission as scheduled on 06/30/25. Altaf Maynard Device Specialist Remote Loop Recorder I have reviewed and interpreted the device interrogation, settings, programming and nurse's summary. The device is functioning within normal device parameters. I agree with the current findings, assessment and plan. us Magdalena Fry MD CV CARDIAC SERVICES ORDERABLES F inal Result documented in this encounter Visit Diagnoses Diagnosis Cryptogenic stroke (H) Unspecified cerebral artery occlusion with cerebral infarction documented in this encounter Additional Health Concerns Assessment Noted Time PHQ-9 Depression Total Score: 9 06/10/20 22 11:44 AM CDT documented as of this encounter Care Teams Pantograph Setter Relationship Specialty Start Date End Date Alex Rao MD PCP - General Internal Medicine 09/19/19 Alex Rao MD [address] [place] [address] Assigned PCP 03/21/21 Alex Rao MD [address] [facility] [place] [place] [address] Referring Physician Internal Medicine 04/02/22 Russell Agosto MD [address] [place] [address] [address] [place], [place] [id number] Neurology 04/02/22 Doris Chaney, [facility] [address] [address] Pharmacist Pharmacist 07/21/22 [place] [address] [address] Nephrology 05/14/23 documented as of this encounter
--- OUTSIDE RECORDS SUMMARY | 2025-04-03 | XMS_ITS | Encounter Summary ---
Author Organization [facility] Address [address] [place] [address] Care Team Providers Care Pc Support Specialist Name Role Phone Elsewhere, Pcp Primary Care Provider Unavailabl e Encounter Details Date Type Department Care Team (Late st Contact Info) Description 04/03/2025 Ancillary Procedure Department of automatic stacker Social History Tobacco Use Types Packs/Day Years Used Date Smoking Tobacco: Former Cigarettes 0.3 4 0 1970 - 1974 Smokeless Tobacco: Never Alcohol Use Standard Drinks/Week Comments Not Currently 0 (1 standard drink = 0.6 oz pur e alcohol) [facility] Utilities Answer Date Recorded In the past 12 months has e electric, gas, oil, or water company threatened to [...] your living situation today? I [facility] live 02/14/2025 Sex and Gender Information Value Date Recorded Sex Assigned at Male 01/06/2025 6:20 PM CDT Legal Sex Male 10:38 AM SOLE STITCHER HAND Gender Identity Male 01/06/2025 6:20 PM CDT Sexual Orientation Straight 01/06/2025 6: 20 PM CDT documented as of this encounter Plan of Treatment Upcoming Encounters Date Type Department Care Team (Latest Contact Info) Description 05/24/2025 8:00 AM CDT Appointment Department of Laboratory Medicine and Pathology, [facility] in [place], [place] [address] [place] [address] Lexus Olson APRN, C.N.P. [address] [place] [phone] 05/24/2025 9:00 AM CDT Clinical Support Department of Nutrition and Diabetes Education in [place], [place] [address] [place] [phone] Lexus Olson APRN, C.N.P. [address] [place] [phone] Elizabeth Arias M.S.N., R.N. [address] [place] [phone] 05/24/2025 10:15 AM CDT Appointment Department of Radiology, [facility] in [place], [place] [address] [place] [address] Dallas Lubin APRN, C.N.P., D.N.P. [address] [place] [phone] 05/24/2025 11:00 AM CDT Appointment Division of automatic stacker in [place], [place] [address] [place] [phone] Dallas Lubin APRN, C.N.P., D.N.P. [address] [place] [phone] 05/24/2025 1:30 PM CDT Comprehensive Visit Division of Endocrinology in [place], [place] [address] [place] [phone] Monik Moreland APRN, C.NAlla., M.S. [address] [place] [phone] 06/20/2025 9:30 AM CDT Office Visit Department of Dental Specialties in [place], [place] [address] [place] [phone] Marisol Sandra D.D.S. [address] [place] [phone] documented as of this encounter Procedures Procedure Name Priority Date/Time Associated Diagnosis Comments LOT BOSS IMAGE EXAM Routine 04/03/2025 12:00 AM CDT documented in this encounter Results * Teeth 514-Professor Of Food Biochemistry Image Exam (04/03/2025 12:00 AM CDT) Narrative [facility] - 04/03/2025 3:41 PM CDT This order has been created and auto-finalized to support the import of images acquired without order. The clinical documentation to support these images can be found on the encounter that produced images. us Provider Not In System IMG NON RAD IMAGING PROCE DURES Final Result [facility] NA documented in this encounter Visit Diagnoses Not on filedocumented in this encounter Care Teams Pc Support Specialist Relationship Specialty Start Date End Date Elsewhere, Pcp PCP - General Internal Medicine 02/08/25 documented as of this encounter
[2025-04-22 09:10] VITALS: BP 105/56; PULSE 57; RESP 16; TEMP 36.7; O2SAT 96; BMI 31.5
--- NOTE | 2025-04-22 09:32 | CRLHL7_ITS ---
For Patients: As a result of the Century Cures Act, medical imaging exams and procedure reports are released immediately into your electronic medical record. You may view this report before your referring provider. If you have questions, please contact your health care provider. Indication: Syncope. Technique: Noncontrast CT images of the brain. Comparison: None. Findings: Mild diffuse cerebral volume loss. No mass effect or midline shift. Beyer-white differentiation is maintained. No acute intracranial hemorrhage or pathologic extra-axial fluid collection. Intracranial atherosclerotic calcifications. Thinning of the ocular lenses. The calvarium is intact. Postsurgical changes along the anterior rose of the maxillary sinuses. Moderate paranasal sinus mucosal thickening. Mastoid air cells are clear. Impression: No acute intracranial hemorrhage or mass effect. Please note that all CT scans at this facility use dose modulation, iterative reconstruction, and/or weight-based dosing when appropriate to reduce radiation dose to as low as reasonably achievable. Dictated by John Patterson MD @ 04/22/2025 10:39:01 AM (Electronically Signed)
--- NOTE | 2025-04-22 09:57 | ED.DIZZY ---
HPI - Dizziness General Chief Complaint: Dizziness/Vertigo Stated Complaint: Fainting, happend 3rd time within couple yrs Time Seen by Provider: 04/22/25 09:25 History of Present Illness HPI Narrative: Patient is a 74-year-old gentleman who was at [facility] today. He felt extremely lightheaded after only sleeping 1 hour last night. Patient had a near syncopal event but was caught by his fellow [employer] studiers. He did not fully lose consciousness and had no postictal symptoms. No incontinence. No seizure activity. Patient states that he has had this in the past when he has not rested well or potentially even given blood. Patient has history of oral cancer and is status post bone grafting from his right leg into his mouth. He has a well-healing harvest site on the right leg. No signs of infection no fevers no chills no night sweats no chest pain no shortness of breath. Patient is currently asymptomatic. The event occurred approximately 30 minutes before arrival. Related Data Home Medications ?Medication ?Instructions ?Recorded ?Confirmed Lactobacillus acidophilus 10 mg PO QDAY 04/06/24 03/27/25 amlodipine 10 mg tablet 10 mg PO DAILY 04/06/24 03/27/25 azelastine 137 mcg (0.1 %) nasal 2 spray intranasal QAM 04/06/24 03/27/25 spray coenzyme Q10 10 mg capsule 10 mg PO ONCE 04/06/24 03/27/25 cyanocobalamin (vitamin B-12) mcg PO 04/06/24 03/27/25 1,500 mcg chewable tablet fluticasone propionate 50 2 spray intranasal QPM 04/06/24 03/27/25 mcg/actuation nasal spray,suspension pantoprazole 40 mg tablet,delayed 40 mg PO DAILY 04/06/24 03/27/25 release rosuvastatin 10 mg tablet 10 mg PO DAILY 04/06/24 03/27/25 semaglutide 1 mg/dose (4 mg/3 mL) mg subcut 04/06/24 03/27/25 subcutaneous pen injector (Ozempic) sodium bicarbonate 650 mg tablet 650 mg PO QDAY PRN 04/06/24 03/27/25 tamsulosin 0.4 mg capsule 0.4 mg PO QDAY 04/06/24 03/27/25 lisinopril 10 mg tablet 10 mg PO QAM 05/16/24 03/27/25 syringe with needle, safety 3 mL #50 ea 06/30/24 03/27/25 25 gauge x 1 (BD Integra Syringe) testosterone cypionate 200 mg/mL 200 mg IM Q2W 06/30/24 03/27/25 intramuscular oil Previous Rx's ?Medication ?Instructions ?Recorded tadalafil 5 mg tablet 5 mg PO QDAY #90 tabs 06/30/24 Allergies Allergy/AdvReac Type Severity Reaction Status Date / Time Sulfa (Sulfonamide Allergy Severe Verified 03/27/25 13:59 Antibiotics) cat dander Allergy Mild Verified 03/27/25 13:59 Review of Systems Status of ROS: Reports: 10 or more systems reviewed and unremarkable except as noted in History and [facility] History 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 ?E11.51 - Type 2 diabetes mellitus with diabetic peripheral angiopathy without gangrene (ICD-10) Facial tic ?F95.9 - Tic disorder, unspecified (ICD-10) Diabetes mellitus ?E11.9 - Type 2 diabetes mellitus without complications (ICD-10) Systolic murmur ?R01.1 - Cardiac murmur, unspecified (ICD-10) BPH associated with nocturia ?N40.1 - Benign prostatic hyperplasia with lower urinary tract symptoms (ICD-10) ?R35.1 - Nocturia (ICD-10) Low testosterone in male ?R79.89 - Other specified abnormal findings of blood chemistry (ICD-10) Neuropathy ?G62.9 - Polyneuropathy, unspecified (ICD-10) GERD (gastroesophageal reflux disease) ?K21.9 - Gastro-esophageal reflux disease without esophagitis (ICD-10) Hypercholesteremia ?E78.00 - Pure hypercholesterolemia, unspecified (ICD-10) HTN (hypertension) ?I10 - Essential (primary) hypertension (ICD-10) Anemia ?D64.9 - Anemia, unspecified (ICD-10) Surgical History History of recent maxillofacial surgery ?Z98.890 - Other specified postprocedural states (ICD-10) History of cardiac monitoring ?Z92.89 - Personal history of other medical treatment (ICD-10) Hx of joint replacement ?Z96.60 - Presence of unspecified orthopedic joint implant (ICD-10) Family History Father Pancreatic cancer Mother Heart disease High blood pressure Social History Smoking Status: Unknown if ever smoked Do you use any of these nicotine containing products: None How often do you have a drink containing alcohol: never How often do you have six or more drinks on one occasion: Never AUDIT-C Alcohol total score: 0 Non-prescribed substance use: denies use service: No Exam Narrative: Exam Narrative: EXAM GENERAL: Patient appears comfortable and well. Findings consistent with Oral surgery noted. EYES: No scleral icterus. ENT: Tympanic membranes and oropharynx normal. THYROID: no thyroid nodules or thyromegaly. LYMPH: No supraclavicular or cervical lymphadenopathy. SKIN: Visible skin seen during exam normal or with benign process only. EXT: No dependent lower extremity pedal edema. HEART: Regular rate and rhythm with no murmurs, rubs, or gallops. LUNGS: Clear to auscultation bilaterally with no crackles or wheezes. ABD: Soft, non tender, non distended. PSYCH: Good eye contact, speech is not pressured. Neurologic cranial nerves 2-12 grossly intact no focal defects. Const: Vital Signs, click to edit/add: Vital Signs - 24 hr 04/22/25 09:10 04/22/25 10:30 Temperature 98.1 F Pulse Rate [Right Radial] 57 L 56 L Respiratory Rate 16 16 Blood Pressure [Le ft Upper Arm] 105/56 L 117/58 L Pulse Oximetry 96 98 Oxygen Delivery Me thod Room Air Room Air Course Course ED Course: Patient seen and examined. CT of the head D-dimer troponin EKG electrolytes CBC pending. Vital Signs Vital signs: Initial Vital Signs Temperature 98.1 F 04/22/25 09:10 Temperature Source Temporal Artery Scan 04/22/25 09:10 Pulse Rate 57 L 04/22/25 09:10 Pulse Rhythm Regular 04/22/25 09:10 Respiratory Rate 16 04/22/25 09:10 Blood Pressure 105/56 L 04/22/25 09:10 Blood Pressure Mean 72 04/22/25 09:10 Pulse Oximetry 96 04/22/25 09:10 Oxygen Delivery Method Room Air 04/22/25 09:10 Vital Signs Temperature 98.1 F 04/22/25 09:10 Pulse Rate 57 L 04/22/25 09:10 Respiratory Rate 16 04/22/25 09:10 Blood Pressure 105/56 L 04/22/25 09:10 Pulse Oximetry 96 04/22/25 09:10 Oxygen Delivery Method Room Air 04/22/25 09:10 Temperature 98.1 F 04/22/25 09:10 Pulse Rate 56 L 04/22/25 10:30 Respiratory Rate 16 04/22/25 10:30 Blood Pressure 117/58 L 04/22/25 10:30 Pulse Oximetry 98 04/22/25 10:30 Oxygen Delivery Method Room Air 04/22/25 10:30 MDM - Dizziness MDM Narrative Medical decision making narrative: Patient presents with presyncopal episode. Evaluation including electrolytes were normal with the exception of chronic renal insufficiency. Patient is mildly anemic. EKG showed normal sinus rhythm troponin D-dimer negative head CT unremarkable. This time reassurance is offered. He will try to get better rest hydrate better and follow-up with his doctor as needed. Lab Data Labs: Lab Results 04/22/25 04/22/25 Range/Units 10:00 10:15 WBC 7.10 (4.50-11.00) K/uL RBC 3.92 L (4.30-5.90) m/uL Hgb 9.7 L (13.5-17.5) gm/dL Hct 31.9 L (37.0-53.0) % MCV 81 (80-100) fL MCH 25 L (26-34) pg MCHC 30 L (32-36) gm/dL RDW Coeff of Beto 14.4 (11.5-15.5) % Plt Count 277 (140-440) K/uL Neut % (Auto) 67.3 (42.0-72.0) % Lymph % (Auto) 22.0 (20-44) % [place] % (Auto) 7.3 (0.0-11.0) % Eos % (Auto) 2.7 (0.0-7.0) % Baso % (Auto) 0.6 (0.0-3.0) % Neut # (Auto) 4.78 (1.7-7.0) K/uL Lymph # (Auto) 1.56 (0.90-2.90) K/uL [place] # (Auto) 0.50 (0.00-0.90) K/UL Eos # (Auto) 0.19 (0.00-0.50) K/uL Baso # (Auto) 0.04 (0.00-0.30) K/uL Abs Immat Gran (auto) 0.01 (0.00-0.30) K/uL Imm/Tot Granulo (auto) 0.1 % D-Dimer Quant (PE/DVT) < 0.27 (0.00-0.50) ug/ml Sodium 137 (135-149) mmol/L Potassium 4.1 (3.6-5.1) mmol/L Chloride 104 (96-114) mmol/L Carbon Dioxide 24 (20-32) mmol/L Anion Gap 9 (7-15) mEq/L BUN 39 H (7-30) mg/dL Creatinine 1.8 H (0.5-1.5) mg/dL Estimated Creat Clear 38.35 Estimated GFR 39 ml/min Glucose 121 H (60-115) mg/dL Calcium 9.5 (8.4-10.6) mg/dL Total Bilirubin 0.3 (0.1-1.5) mg/dL AST 20 (12-35) U/L ALT 17 (4-50) U/L Alkaline Phosphatase 82 (40-150) U/L Troponin I < 0.01 (0.01-0.04) ng/mL Total Protein 7.0 (6.0-8.3) g/dL Albumin 4.1 (3.3-5.0) g/dL Urine Color Yellow (Yellow) Urine Appearance Cloudy A (Clear) Urine pH 6.0 (5.0-8.5) Ur Specific [place] 1.010 (1.000-1.030) Urine Protein Negative (Negative) Urine Glucose (UA) 2+ A (Negative) Urine Ketones Negative (Negative) Urine Blood Negative (Negative) Urine Nitrite Negative (Negative) Urine Bilirubin Negative (Negative) Urine Urobilinogen 0.2 (0.2-1.0) Ur Leukocyte Esterase 1+ A (Negative) Urine RBC 5-10 A (0-2) Urine WBC >100 A (0-5) Ur Squamous Epith Cells Few (None-Few) Urine Bacteria Moderate A (None) Discharge Plan Discharge Clinical Impression: Syncope Patient Disposition: Home, Self-Care Condition: Stable Instructions: Syncope (ED) Additional Instructions: Continue current medications Activity as tolerated Follow-up with your doctor as needed. Activity Level: No Restrictions Discharge Diet: Regular Prescriptions: No Action lisinopril 10 mg tablet 10 mg PO QAM testosterone cypionate 200 mg/mL oil 200 mg IM Q2W (DME) BD Integra Syringe 3 mL 25 gauge x 1 syringe See Rx Instructions .ROUTE Q2W Qty: 50 Rx Instructions: As directed tadalafil 5 mg tablet 5 mg PO QDAY Qty: 90 3RF azelastine 137 mcg (0.1 %) aerosol,spray 2 spray intranasal QAM amlodipine 10 mg tablet 10 mg PO DAILY coenzyme Q10 10 mg capsule 10 mg PO ONCE cyanocobalamin (vitamin B-12) 1,500 mcg tablet,chewable PO fluticasone propionate 50 mcg/actuation spray,suspension 2 spray intranasal QPM Lactobacillus acidophilus Capsule 10 mg PO QDAY pantoprazole 40 mg tablet,delayed release (DR/EC) 40 mg PO DAILY rosuvastatin 10 mg tablet 10 mg PO DAILY Ozempic 1 mg/dose (4 mg/3 mL) pen injector subcut sodium bicarbonate 650 mg tablet 650 mg PO QDAY PRN tamsulosin 0.4 mg capsule 0.4 mg PO QDAY Follow Up/Referrals: Mega Allen MD [Primary Care Provider, Family Practice] Stand Alone Forms: [employer] Info Instructions
--- OUTSIDE RECORDS SUMMARY | 2025-04-22 10:06 | XMS_ITS | Encounter Summary ---
Author Organization [place] Address [address] [place] [address] Care Team Providers Care Jar Filler Name Role Phone Alex Rao MD Primary Care Provider [phone] Sharri Hdez MD Unavailable [phone] Alex Rao MD Unavailable [phone] Alex Rao MD Unavailable [phone] Russell Agosto MD Unavailable [phone] Magdalena Fry MD Unavailable Doris Chaney [facility] Unavailable Doris Chaney [facility] Unavailable Canelo Kelley MD Unavailable Reason for Visit * Reason Comments Medication Refill Encounter Details Date Type Department Care Team (Late st Contact Info) Description 12/20/[address] [phone] Alex Rao MD [address] [place] [address] Medication Refill Social History Tobacco Use Types Packs/Day Years [...] AM CDT Legal Sex Male 4:10 AM KNOCK UP ASSEMBLER Gender Identity Male 11/22/2018 10:40 AM KNOCK UP ASSEMBLER Sexual Orientation Straight 11/22/2018 10 :40 AM KNOCK UP ASSEMBLER Occupation Industry Job Start Date Job 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- [employer] 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 Not on file Not on file documented as of this encounter Plan of Treatment Upcoming Encounters Date Type Department Care Team (Late st Contact Info) Description 06/30/2025 Ancillary Procedure [address] [address] Magdalena Fry MD [address] [place] [address] 10/02/2025 Ancillary Procedure [address] [address] Magdalena Fry MD [address] [place] [address] [phone] documented as of this encounter Visit Diagnoses Diagnosis Essential hypertension with goal blood pressure less than 140/90 documented in this encounter Additional Health Concerns Assessment Noted Time PHQ-9 Depression Total Score: 9 06/10/20 22 11:44 AM CDT documented as of this encounter Care Teams Jar Filler Relationship Specialty Start Date End Date Alex Rao MD PCP - General Internal Medicine 09/19/19 Sharri Hdez MD [address] [place] [address] 435695 Assigned Endocrinology Provider 12/16/20 03/16/24 Alex Rao MD [address] [place] [address] Assigned PCP 03/21/21 Alex Rao MD [address] [place] [address] Referring Physician Internal Medicine 04/02/22 Russell Agosto MD [address] [id number] Neurology 04/02/22 Magdalena Fry MD [address] [phone] Assigned Heart and Vascular Provider 04/26/22 02/15/24 [facility] [address] [phone] Pharmacist Pharmacist 07/21/22 [facility] [address] [phone] Assigned MTM Pharmacist 07/26/2202/14 [place] [address] [phone] Nephrology 05/14/23 documented as of this encounter
--- OUTSIDE RECORDS SUMMARY | 2025-04-22 10:06 | XMS_ITS | Encounter Summary ---
Author Organization [place] Address [address] [place] [address] Care Team Providers Care Bung Remover Name Role Phone Alex Rao MD Primary Care Provider [phone] Sharri Hdez MD Unavailable [phone] Alex Rao MD Unavailable Alex Rao MD Unavailable [phone] Russell Agosto MD Unavailable [phone] Magdalena Fry MD Unavailable Doris Chaney [facility] Unavailable [phone] [facility] Unavailable [phone] Canelo Kelley MD Unavailable Encounter Details Date Type Department Care Team (Late st Contact Info) Description 12/07/2023 [facility] [address] [place] [address] Taiwo Yañez Social History Tobacco Use Types Packs/Day Years [...] AM CDT Legal Sex Male 4:10 AM PROFESSOR OF ANTHROPOLOGY Gender Identity Male 11/22/2018 10:40 AM PROFESSOR OF ANTHROPOLOGY Sexual Orientation Straight 11/22/2018 10 :40 AM PROFESSOR OF ANTHROPOLOGY Occupation Industry Job Start Date Job 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- [employer] 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 Not on file Not on file documented as of this encounter Plan of Treatment Upcoming Encounters Date Type Department Care Team (Late st Contact Info) Description 06/30/2025 Ancillary Procedure [address] [phone] Magdalena Fry MD [address] [place] [address] [phone] 10/02/2025 Ancillary Procedure [address] [phone] Magdalena Fry MD [address] [place] [address] [phone] documented as of this encounter Visit Diagnoses Not on filedocumented in this encounter Additional Health Concerns Assessment Noted Time PHQ-9 Depression Total Score: 9 06/10/20 22 11:44 AM CDT documented as of this encounter Care Teams Bung Remover Relationship Specialty Start Date End Date Alex Rao MD PCP - General Internal Medicine 09/19/19 Sharri Hdez MD [address] [place] [address] 101 [place], [place] 668345 Assigned Endocrinology Provider 12/16/20 03/16/24 Alex Rao MD [address] [place] [address] Assigned PCP 03/21/21 Alex Rao MD 63[address] [facility] [place] [address] Referring Physician Internal Medicine 04/02/22 Russell Agosto MD [address] 707785 Neurology 04/02/22 Magdalena Fry MD [address] 212535 Assigned Heart and Vascular Provider 04/26/22 02/15/24 Doris Chaney, [facility] [address] [phone] Pharmacist Pharmacist 07/21/22 [facility] [address] [phone] Assigned MTM Pharmacist 07/26/2202/14 [place] [address] [phone] Nephrology 05/14/23 documented as of this encounter
--- OUTSIDE RECORDS SUMMARY | 2025-04-22 10:06 | XMS_ITS | Encounter Summary ---
Author Organization [place] Address [address] [place] [address] Care Team Providers Care Home Hospice Rn Name Role Phone Alex Rao MD Primary Care Provider [phone] Sharri Hdez MD Unavailable [phone] Alex Rao MD Unavailable [phone] Alex Rao MD Unavailable [phone] Russell Agosto MD Unavailable [phone] Magdalena Fry MD Unavailable Doris Chaney [facility] Unavailable [phone] Doris Chaney [facility] Unavailable [phone] Canelo Kelley MD Unavailable Encounter Details Date Type Department Care Team (Late st Contact Info) Description 06/05/2023 [facility] [place] Medical Advice [facility] [address] [place] [address] Emilee Linares Social History Tobacco Use Types Packs/Day Years Used Date Smoking Tobacco: Former Cigarettes 0.5 3 0 02/21/1971 - 02/21/1974 Pipe Passive Smoke Exposure: Never Smokeless Tobacco: Former Alcohol Use Standard Drinks/Week Comments Not Currently 0 (1 standard drink = 0.6 oz pur e alcohol) 3 drinks/week PHQ-2 Answer Date Recorded PHQ-2 Score 0 03/26/2023 Sex and Gender Information Value Date Recorded Sex Assigned at Male 07/18/2019 7:43 AM CDT Legal Sex Male 4:10 AM PATHOLOGY SUPERVISOR Gender Identity Male 11/22/2018 10:40 AM PATHOLOGY SUPERVISOR Sexual Orientation Straight 11/22/2018 10 :40 AM PATHOLOGY SUPERVISOR Occupation Industry Job Start Date Job 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 No / Unsure 06/01/2023 10:25 AM CDT documented as of this encounter Plan of Treatment Upcoming Encounters Date Type Department Care Team (Late st Contact Info) Description 06/30/2025 Ancillary Procedure [address] [address] Magdalena Fry MD [address] [place] [address] [phone] 10/02/2025 Ancillary Procedure [address] [address] aMgdalena Fry MD [address] [place] [address] [phone] documented as of this encounter Visit Diagnoses Not on filedocumented in this encounter Additional Health Concerns Assessment Noted Time PHQ-9 Depression Total Score: 9 06/10/20 22 11:44 AM CDT documented as of this encounter Care Teams Home Hospice Rn Relationship Specialty Start Date End Date Alex Rao MD PCP - General Internal Medicine 09/19/19 Sharri Hdez MD [address] [place] [address] Assigned Endocrinology Provider 12/16/20 03/16/24 Alex Rao MD [address] [place] [place] [address] Assigned PCP 03/21/21 Alex Rao MD [address] [place] [address] Referring Physician Internal Medicine 04/02/22 Russell Agosto MD [address] [address] Neurology 04/02/22 Magdalena Fry MD [address] [address] Assigned Heart and Vascular Provider 04/26/22 02/15/24 Doris Chaney [facility] [address] [phone] Pharmacist Pharmacist 07/21/22 Doris Chaney [facility] [address] [phone] Assigned MTM Pharmacist 07/26/2202/14 [place] [address] [phone] Nephrology 05/14/23 documented as of this encounter
--- OUTSIDE RECORDS SUMMARY | 2025-04-22 10:06 | XMS_ITS | Encounter Summary ---
Author Organization [place] Address [address] [place] [address] Care Team Providers Care Meat Cutting Block Repairer Name Role Phone Alex Rao MD Primary Care Provider [phone] Sharri Hdez MD Unavailable [phone] Alex Rao MD Unavailable [phone] Alex Rao MD Unavailable [phone] Russell Agosto MD Unavailable [phone] Magdalena Fry MD Unavailable Doris Chaney [facility] Unavailable [phone] Doris Chaney [facility] Unavailable [phone] Canelo Kelley MD Unavailable Encounter Details Date Type Department Care Team (Late st Contact Info) Description 09/08/2023 [facility] [place] [address] [place] [address] Emilee Linares Social History Tobacco [...] AM CDT Legal Sex Male 4: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 AND 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 Gender Identity Male 11/22/2018 10:40 AM GROOVER AND TURNER Sexual Orientation Straight 11/22/2018 10 :40 AM GROOVER AND TURNER Occupation Industry Job Start Date Job 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- [employer] Not on file Not on file Not on file documented as of this encounter Plan of Treatment Upcoming Encounters Date Type Department Care Team (Late st Contact Info) Description 06/30/2025 Ancillary Procedure [address] [phone] Magdalena Fry MD [address] [place] [address] [phone] 10/02/2025 Ancillary Procedure [address] [phone] Magdalena Fry MD [address] [place] [address] [phone] documented as of this encounter Visit Diagnoses Not on filedocumented in this encounter Additional Health Concerns Assessment Noted Time PHQ-9 Depression Total Score: 9 06/10/20 22 11:44 AM CDT documented as of this encounter Care Teams Meat Cutting Block Repairer Relationship Specialty Start Date End Date Alex Rao MD PCP - General Internal Medicine 09/19/19 Sharri Hdez MD [address] [place] [address] 101 [place] [address] Assigned Endocrinology Provider 12/16/20 03/16/24 Alex Rao MD [address] [place] [address] Assigned PCP 03/21/21 Alex Rao MD [address] [facility] [place] [address] Referring Physician Internal Medicine 04/02/22 Russell Agosto MD [address] 291915 Neurology 04/02/22 Magdalena Fry MD [address] 207225 Assigned Heart and Vascular Provider 04/26/22 02/15/24 Doris Chaney, [facility] [address] [phone] Pharmacist Pharmacist 07/21/22 [facility] [address] [phone] Assigned MTM Pharmacist 07/26/2202/14 [place] [address] [phone] Nephrology 05/14/23 documented as of this encounter
--- OUTSIDE RECORDS SUMMARY | 2025-04-22 10:06 | XMS_ITS | Encounter Summary ---
Author Organization [place] Address [address] [place] [address]. [place] [address] Care Team Providers Care Employment Specialist/Program Manager Name Role Phone Alex Rao MD Primary Care Provider [phone] Alex Rao MD Unavailable [phone] Alex Rao MD Unavailable [phone] Russell Agosto MD Unavailable [phone] [address]is Ch[address] 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- [employer] Not on file Not on file Not on file documented as of this encounter Plan of Treatment Upcoming Encounters Date Type Department Care Team (Late st Contact Info) Description 06/30/2025 Ancillary Procedure [address] [phone] Magdalena Fry MD [address] [place] [address] [phone] 10/02/2025 Ancillary Procedure [address] [phone] Magdalena Fry MD [address] [place] [address] [phone] documented as of this encounter Visit Diagnoses Not on filedocumented in this encounter Additional Health Concerns Assessment Noted Time PHQ-9 Depression Total Score: 9 06/10/20 22 11:44 AM CDT documented as of this encounter Care Teams Employment Specialist/Program Manager Relationship Specialty Start Date End Date Alex Rao MD PCP - General Internal Medicine 09/19/19 Alex Rao MD [address] [place] [address] Assigned PCP 03/21/21 Alex Rao MD [address] [place] [address] Referring Physician Internal Medicine 04/02/22 Russell Agosto MD [address] [place] [address] 540455 Neurology 04/02/22 Doris Chaney, [facility] [address] [phone] Pharmacist Pharmacist 07/21/22 [place] [address] [phone] Nephrology 05/14/23 documented as of this encounter
--- OUTSIDE RECORDS SUMMARY | 2025-04-22 10:06 | XMS_ITS | Encounter Summary ---
Author Organization [facility] Address [address] [place] [address] Care Team Providers Care Sleeping Car Service Attendant Name Role Phone Antonio Celeste MD Primary Care Provider U nealsharon Bill Bowens PA-C Primary Care Provider + Bill Bowens PA-C Unavailable [phone] Bill Bowens PA-C Unavailable [phone] Alex Rao MD Primary Care Provider [phone] Alex Rao MD Unavailable Beni Puga MD PhD Unavailable Alex Rao MD Unavailable [phone] Nate Leong MD Unavailable [phone] Sharri Hdez MD Unavailable [phone] Alex Rao MD Unavailable [phone] Alex Rao MD Unavailable [phone] Russell Agosto MD Unavailable [phone] Magdalena Fry MD Unavailable Doris Chaney [facility] Unavailable [phone] Doris Chaney [facility] Unavailable [phone] Canelo Kelley MD Unavailable Encounter Details Date Type Department Care Team ([facility] Contact Info) Description 10/02/2005 MyC Medical Advice [facility] [address] [place] [address] Pillo Kaplan MD [address] , [address] [place] [address] Social History Tobacco Use Types Packs/Day Years Used Date Smoking Tobacco: Former Cigarettes Q uit: 02/21/1974 Alcohol Use Standard Drinks/Week Comments Yes 0 (1 standard drink = 0.6 oz pur e alcohol) occasional Sex and Gender Information Value Date Recorded Sex Assigned at Male 07/18/2019 7:43 AM CDT Legal Sex Male 4:10 AM CONDITIONING COACH Gender Identity Male 11/22/2018 10:40 AM CONDITIONING COACH Sexual Orientation Straight 11/22/2018 10 :40 AM CONDITIONING COACH Occupation Industry Job Start Date Job 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- [employer] Not on file Not on file Not on file documented as of this encounter Plan of Treatment Upcoming Encounters Date Type Department Care Team (Late Contact Info) Description 06/30/2025 Ancillary Procedure [address] [address] Magdalena Fry MD [address] [place] [address] [phone] 10/02/2025 Ancillary Procedure [address] [address] Magdalena Fry MD [address] [place] [address] [phone] documented as of this encounter Visit Diagnoses Not on filedocumented in this encounter Care Teams Sleeping Car Service Attendant Relationship Specialty Start Date End Date Antonio Celeste MD NO INFO AVAILABLE 08/25/2022 PCP - General 03/24/03 02/19/15 Bill Bowens PA-C NO INFO AVAILABLE 08/25/2022 PCP - General Physician Putty Mixer 02/20/15 09/18/19 Bill Bowens PA-C [address] [address] PCP - Assigned PCP 01/14/15 12/28/18 Alex Rao MD [address] [address] PCP - General Internal Medicine 09/19/19 Bill Bowens PA-C [address] [address] Assigned PCP 01/14/15 12/03/19 Alex Rao MD [address] [place] [address] Assigned PCP 12/04/19 02/18/20 Beni Puga MD PhD [address] [place] [address] Assigned PCP 02/19/20 02/25/20 Alex Rao MD [address] [place] [address] Assigned PCP 02/26/20 03/20/21 Nate Leong MD [address] [place] [address] Assigned Surgical Provider 08/17/20 11/07/22 Sharri Hdez MD 420 [facility] [address] [place], [place] 4608[address] Assigned Endocrinology Provider 12/16/20 03/16/24 Alex Rao MD 63[address] [facility] [address] [place], [place] 4037[address] Assigned PCP 03/21/21 Alex Rao MD [address] [facility] [address] [place], [place] 7900[address] Referring Physician Internal Medicine 04/02/22 Russell Agosto MD 420 [facility] [address] [place], [place] 423555 Neurology 04/02/22 Magdalena Fry MD 420 [facility] [address] [place], [place] 5136[address] Assigned Heart and Vascular Provider 04/26/22 02/15/24 Doris Chaney [facility] [address] [address] Pharmacist Pharmacist 07/21/22 Doris Chaney [facility] [address] [phone] Assigned MTM Pharmacist 07/26/2202/14 [place] [address] [address] Nephrology 05/14/23 documented as of this encounter
--- OUTSIDE RECORDS SUMMARY | 2025-04-22 10:07 | XMS_ITS | Encounter Summary ---
Author Organization [facility] Address [address] [place] [address] Care Team Providers Care Online Merchandising Manager Name Role Phone Bill Bowens PA-C Primary Care Provider + Bill Bowens PA-C Unavailable [phone] Bill Bowens PA-C Unavailable [phone] Alex Rao MD Primary Care Provider [phone] Alex Rao MD Unavailable [phone] Beni Puga MD PhD Unavailable Alex Rao MD Unavailable [phone] Nate Leong MD Unavailable [phone] Sharri Hdez MD Unavailable [phone] Alex Rao MD Unavailable [phone] Alex Rao MD Unavailable [phone] Russell Agosto MD Unavailable [phone] Magdalena Fry MD Unavailable Doris Chaney [facility] Unavailable [phone] Doris Chaney [facility] Unavailable + [phone] Canelo Kelley MD Unavailable Encounter Details Date Type Department Care Team (Late st Contact Info) Description 04/03/2015 MyC Medical Advice [address] [address] Jyothi Collins Social History Tobacco Use Types Packs/Day Years Used Date Smoking Tobacco: Former Cigarettes 0.5 3 0 02/21/1971 - 02/21/1974 Pipe Smokeless Tobacco: Former Alcohol Use Standard Drinks/Week Comments Yes 0 (1 standard drink = 0.6 oz pur e alcohol) 2-12 beers per weekends Sex and Gender Information Value Date Recorded Sex Assigned at Male 07/18/2019 7:43 AM CDT Legal Sex Male 4:10 AM PRESS TENDER Gender Identity Male 11/22/2018 10:40 AM PRESS TENDER Sexual Orientation Straight 11/22/2018 10 :40 AM PRESS TENDER Occupation Industry Job Start Date Job 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- [employer] Not on file Not on file Not on file documented as of this encounter Plan of Treatment Upcoming Encounters Date Type Department Care Team (Late st Contact Info) Description 06/30/2025 Ancillary Procedure [address] [address] Magdalena rFy MD [address] [place] [address] [phone] 10/02/2025 Ancillary Procedure [address] [address] Magdalena Fry MD [address] [place] [address] [phone] documented as of this encounter Visit Diagnoses Not on filedocumented in this encounter Care Teams Online Merchandising Manager Relationship Specialty Start Date End Date Bill Bowens PA-C PCP - General Physician Barbecue Cook 02/20/15 09/18/19 Bill Bowens PA-C [address] [place] [address] PCP - Assigned PCP 01/14/15 12/28/18 Alex Rao MD [address] [address] PCP - General Internal Medicine 09/19/19 Bill Bowens PA-C [address] [address] Assigned PCP 01/14/15 12/03/19 Aelx Rao MD [address] [place] [address] Assigned PCP 12/04/19 02/18/20 Beni Puga MD PhD [address] [facility] [place] [address] Assigned PCP 02/19/20 02/25/20 Alex Rao MD [address] [place] [address] Assigned PCP 02/26/20 03/20/21 Nate Leong MD [address] [address] Assigned Surgical Provider 08/17/20 11/07/22 Sharri Hdez MD [address] [place] [address] Assigned Endocrinology Provider 12/16/20 03/16/24 Alex Rao MD [address] [place] [address] Assigned PCP 03/21/21 Alex Rao MD [address] [place] [address] Referring Physician Internal Medicine 04/02/22 Russell Agosto MD [address] [place] [address] 901795 Neurology 04/02/22 Magdalena Fry MD [address] 500475 Assigned Heart and Vascular Provider 04/26/22 02/15/24 Doris Chaney [facility] [address] [phone] Pharmacist Pharmacist 07/21/22 Doris Chaney [facility] [address] [phone] Assigned MTM Pharmacist 07/26/2202/14 [place] [address] [phone] Nephrology 05/14/23 documented as of this encounter
--- OUTSIDE RECORDS SUMMARY | 2025-04-22 10:07 | XMS_ITS | Encounter Summary ---
Author Organization [facility] Address [address] [place] [address] Care Team Providers Care Product Builder Name Role Phone Antonio Celeste MD Primary Care Provider U nealsharon Bill Bowens PA-C Primary Care Provider + Bill Bowens PA-C Unavailable [phone] Bill Bowens PA-C Unavailable [phone] Alex Rao MD Primary Care Provider [phone] Alex Rao MD Unavailable [phone] Beni Puga MD PhD Unavailable Alex Rao MD Unavailable Nate Leong MD Unavailable [phone] Sharri Hdez MD Unavailable [phone] Alex Rao MD Unavailable [phone] Alex Rao MD Unavailable [phone] Russell Agosto MD Unavailable [phone] Magdalena Fry MD Unavailable Doris Chaney [facility] Unavailable [phone] Doris Chaney [facility] Unavailable [phone] Canelo Kelley MD Unavailable Encounter Details Date Type Department Care Team (Late st Contact Info) Description 10/23/2008 [facility]C [facility] Social History Tobacco Use Types Packs/Day Years Used Date Smoking Tobacco: Former Cigarettes Q uit: 02/21/1974 Alcohol Use Standard Drinks/Week Comments Yes 0 (1 standard drink = 0.6 oz pur e alcohol) occasional Sex and Gender Information Value Date Recorded Sex Assigned at Male 07/18/2019 7:43 AM CDT Legal Sex Male 4:10 AM DIRECTOR SURFACE TRANSPORTATION Gender Identity Male 11/22/2018 10:40 AM DIRECTOR SURFACE TRANSPORTATION Sexual Orientation Straight 11/22/2018 10 :40 AM DIRECTOR SURFACE TRANSPORTATION Occupation Industry Job Start Date Job 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- [employer] Not on file Not on file Not on file documented as of this encounter Plan of Treatment Upcoming Encounters Date Type Department Care Team (Late Contact Info) Description 06/30/2025 Ancillary Procedure [address] [address] Magdalena Fry MD [address] [place] [address] 130715 10/02/2025 Ancillary Procedure [address] [address] Magdalena Fry MD [address] [place] [address] documented as of this encounter Visit Diagnoses Not on filedocumented in this encounter Care Teams Product Builder Relationship Specialty Start Date End Date Antonio Celeste MD NO INFO AVAILABLE 08/25/2022 PCP - General 03/24/03 02/19/15 Bill Bowens PA-C NO INFO AVAILABLE 08/25/2022 PCP - General Physician Wood Furniture Assembler 02/20/15 09/18/19 Bill Bowens PA-C [address] [place] [address] PCP - Assigned PCP 01/14/15 12/28/18 Alex Rao MD [address] [place] [address] PCP - General Internal Medicine 09/19/19 Bill Bowens PA-C [address] [place] [address] Assigned PCP 01/14/15 12/03/19 Alex Rao MD [address] [facility] [place] [address] Assigned PCP 12/04/19 02/18/20 Beni Puga MD PhD [address] [facility] [place] [address] Assigned PCP 02/19/20 02/25/20 Alex Rao MD [address] [facility] [place] [address] Assigned PCP 02/26/20 03/20/21 Nate Leong MD [address] [place], [place] [address]46[address] Assigned Surgical Provider 08/17/20 11/07/22 Sharri Hdez MD 420 [facility] 101 [place], [place] [address] Assigned Endocrinology Provider 12/16/20 03/16/24 Alex Rao MD [address] [place] [address] Assigned PCP 03/21/21 Alex Rao MD [address] [place] [address] Referring Physician Internal Medicine 04/02/22 Russell Agosto MD [address] [address] Neurology 04/02/22 Magdalena Fry MD [address] [address] Assigned Heart and Vascular Provider 04/26/22 02/15/24 Doris Chaney [facility] [address] [phone] Pharmacist Pharmacist 07/21/22 Doris Chaney [facility] [address] [phone] Assigned MTM Pharmacist 07/26/2202/14 [place] [address] [phone] Nephrology 05/14/23 documented as of this encounter
--- OUTSIDE RECORDS SUMMARY | 2025-04-22 10:07 | XMS_ITS | Encounter Summary ---
Author Organization [facility] Address [address] [place] [address] Care Team Providers Care Nursing Consultant Name Role Phone Alex Rao MD Primary Care Provider [phone] Nate Leong MD Unavailable [phone] Sharri Hdez MD Unavailable Alex Rao MD Unavailable [phone] Alex Rao MD Unavailable [phone] Russell Agosto MD Unavailable [phone] Magdalena Fry MD Unavailable Doris Chaney [facility] Unavailable Doris Chaney [facility] Unavailable Canelo Kelley MD Unavailable Encounter Details Date Type Department Care Team (Late st Contact Info) Description 03/31/2022 Clint Avila [address] [address] Alex Rao MD [address] [place] [address] Social History Tobacco Use Types Packs/Day Years Used Date Smoking Tobacco: Former Cigarettes 0.5 3 0 02/21/1971 - 02/21/1974 Pipe Smokeless Tobacco: Former Alcohol Use Standard Drinks/Week Comments Not Currently 0 (1 standard drink = 0.6 oz pur e alcohol) 3 drinks/week PHQ-2 Answer Date Recorded PHQ-2 Score 1 02/13/2022 Sex and Gender Information Value Date Recorded Sex Assigned at Male 07/18/2019 7:43 AM CDT Legal Sex Male 4:10 AM 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 No / Unsure 04/03/2022 11:37 AM CDT documented as of this encounter Miscellaneous Notes * Telephone Encounter - Miky Stark - 03/31/2022 4:16 PM CDT atorvastatin (LIPITOR) 40 MG tablet documented in this encounter Plan of Treatment Upcoming Encounters Date Type Department Care Team (Late st Contact Info) Description 06/30/2025 Ancillary Procedure [address] [address] Magdalena Fry MD [address] [place] [address] [phone] 10/02/2025 Ancillary Procedure [address] [address] Magdalena Fry MD [address] [place] [address] documented as of this encounter Visit Diagnoses Diagnosis Hyperlipidemia LDL goal <100 Other and unspecified hyperlipidemia documented in this encounter Care Teams Nursing Consultant Relationship Specialty Start Date End Date Alex Rao MD PCP - General Internal Medicine 09/19/19 Nate Leong MD [address] 392355 Assigned Surgical Provider 08/17/20 11/07/22 Sharri Hdez MD [address] [address] Assigned Endocrinology Provider 12/16/20 03/16/24 Alex Rao MD 6320 [place], [place] 739231 Assigned PCP 03/21/21 Alex Rao MD 6320 [place], [place] 6714[address] Referring Physician Internal Medicine 04/02/22 Russell Agosto MD [address] 852875 Neurology 04/02/22 Magdalena Fry MD [address] 951805 Assigned Heart and Vascular Provider 04/26/22 02/15/24 Doris Chaney [facility] [address] [phone] Pharmacist Pharmacist 07/21/22 Doris Chaney [facility] [address] [phone] Assigned MTM Pharmacist 07/26/2202/14 [place] [address] [phone] Nephrology 05/14/23 documented as of this encounter
--- OUTSIDE RECORDS SUMMARY | 2025-04-22 10:07 | XMS_ITS | Encounter Summary ---
Author Organization [facility] Address [address] [place] [address] Care Team Providers Care Building Insulation Supervisor Name Role Phone Alex Rao MD Primary Care Provider [phone] Nate Leong MD Unavailable [phone] Sharri Hdez MD Unavailable Alex Rao MD Unavailable [phone] Alex Rao MD Unavailable [phone] Russell Agosto MD Unavailable [phone] Magdalena Fry MD Unavailable Doris Chaney [facility] Unavailable Doris Chaney [facility] Unavailable [phone] Canelo Kelley MD Unavailable Encounter Details Date Type Department Care Team (Late st Contact Info) Description 07/19/2021 [facility] Medical Advice [facility] [address] [address] Oksana Torres ATC Social History Tobacco Use Types Packs/Day Years Used Date Smoking Tobacco: Former Cigarettes 0.5 3 0 02/21/1971 - 02/21/1974 Pipe Smokeless Tobacco: Former Alcohol Use Standard Drinks/Week Comments Yes 0 (1 standard drink = 0.6 oz pur e alcohol) 3 drinks/week PHQ-2 Answer Date Recorded PHQ-2 Score 0 03/01/2021 Sex and Gender Information Value Date Recorded Sex Assigned at Male 07/18/2019 7:43 AM CDT Legal Sex Male 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 Gender Identity Male 11/22/2018 10:40 AM MEDICAL CLAIMS SPECIALIST Sexual Orientation Straight 11/22/2018 10 :40 AM MEDICAL CLAIMS SPECIALIST Occupation Industry Job Start Date Job 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- [employer] Not on file Not on file Not on file documented as of this encounter Plan of Treatment Upcoming Encounters Date Type Department Care Team (Late st Contact Info) Description 06/30/2025 Ancillary Procedure [address] [phone] Magdalena Fry MD [address] [place] [address] [phone] 10/02/2025 Ancillary Procedure [address] [phone] Magdalena Fry MD [address] [place] [address] 878685 documented as of this encounter Visit Diagnoses Not on filedocumented in this encounter Care Teams Building Insulation Supervisor Relationship Specialty Start Date End Date Alex Rao MD PCP - General Internal Medicine 09/19/19 Nate Leong MD 6[address] [facility] 500 [place] [address] Assigned Surgical Provider 08/17/20 11/07/22 Sharri Hdez MD [address] [place] [address] 101 [place] [address] Assigned Endocrinology Provider 12/16/20 03/16/24 Alex Rao MD [address] [place] [address] Assigned PCP 03/21/21 Alex Rao MD [address] [place] [address] Referring Physician Internal Medicine 04/02/22 Russell Agosto MD [address] [address] Neurology 04/02/22 Magdalena Fry MD [address] [address] Assigned Heart and Vascular Provider 04/26/22 02/15/24 Doris Chaney [facility] [address] [phone] Pharmacist Pharmacist 07/21/22 Doris Chaney [facility] [address] [phone] Assigned MTM Pharmacist 07/26/2202/14 [place] [address] [phone] Nephrology 05/14/23 documented as of this encounter
--- OUTSIDE RECORDS SUMMARY | 2025-04-22 10:07 | XMS_ITS | Encounter Summary ---
Author Organization [facility] Address [address] [place] [address] Care Team Providers Care Vp Of Customer Experience Strategy Name Role Phone Alex Rao MD Primary Care Provider [phone] Nate Leong MD Unavailable [phone] Sharri Hdez MD Unavailable [phone] Alex Rao MD Unavailable [phone] Alex Rao MD Unavailable [phone] Russell Agosto MD Unavailable [phone] Magdalena Fry MD Unavailable Doris Chaney [facility] Unavailable Doris Chaney [facility] Unavailable Canelo Kelley MD Unavailable Encounter Details Date Type Department Care Team (Late st Contact Info) Description 10/07/2021 [facility] [address] [place] [address] Sharri Hdez MD [address] [place] [address] 101 [place] [address] Social History Tobacco Use Types Packs/Day Years [...] AM CDT Legal Sex Male 4:10 AM 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 Gender Identity Male 11/22/2018 10:40 AM SAFETY SEALER Sexual Orientation Straight 11/22/2018 10 :40 AM SAFETY SEALER Occupation Industry Job Start Date Job 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- [employer] Not on file Not on file Not on file documented as of this encounter Plan of Treatment Upcoming Encounters Date Type Department Care Team (Late st Contact Info) Description 06/30/2025 Ancillary Procedure [address] [address] Magdalena Fry MD [address] [place] [address] 10/02/2025 Ancillary Procedure [address] [address] Magdalena Fry MD [address] [place] [address] documented as of this encounter Visit Diagnoses Not on filedocumented in this encounter Care Teams Vp Of Customer Experience Strategy Relationship Specialty Start Date End Date Alex Rao MD PCP - General Internal Medicine 09/19/19 Nate Leong MD [address] 961805 Assigned Surgical Provider 08/17/20 11/07/22 Sharri Hdez MD [address] [place] [address] Assigned Endocrinology Provider 12/16/20 03/16/24 Alex Rao MD [address] [place] [place] 085721 Assigned PCP 03/21/21 Alex Rao MD [address] 273451 Referring Physician Internal Medicine 04/02/22 Russell Agosto MD 420 [facility] [address] 527985 Neurology 04/02/22 Magdalena Fry MD [address] 951495 Assigned Heart and Vascular Provider 04/26/22 02/15/24 Doris Chaney [facility] [address] [address] Pharmacist Pharmacist 07/21/22 Doris Chaney [facility] [address] [phone] Assigned MTM Pharmacist 07/26/2202/14 [place] [address] [address] Nephrology 05/14/23 documented as of this encounter
--- OUTSIDE RECORDS SUMMARY | 2025-04-22 10:07 | XMS_ITS | Clinical Summary ---
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 Name Role Phone Luis Rao MD Primary Care Provider Luis Rao MD Unavailable [phone] Luis Rao MD Unavailable [phone] Russell Agosto MD Unavailable [phone] Doris Chaney [facility] Unavailable Canelo Kelley MD Unavailable Allergies Active Allergy Reactions Criticality Noted Date Comments Animal Dander Swelling,Difficulty breathing 04/18/2011 Cat Dander Swelling,Cough 04/18/2011 Cat and Dog dander Sucrose Low 12/10/2020 Patient states he experiences a dry, scratchy throat Sulfa Antibiotics Rash Medium 02/22/2004 Medications Continuous Blood Gluc Bearing Grinder (FREESTYLE CHERRY 14 DAY READER) DEVIIndications: Controlled type 2 diabetes mellitus without complication, without long-term current use of insulin (H) 1 each 2 times daily 4 Device 5 9 Active lactobacillus rhamnosus (GG) (CULTURELL) capsule Take 1 capsule by mouth every morning Active tamsulosin (FLOMAX) 0.4 MG capsuleIndicatio ns:BPH with obstruction/lowe r urinary tract symptoms Take 2 capsules (0.8 mg) by mouth every evening 180 capsule 3 3 Active vitamin B-12 (CYANOCOBALAMIN) 2000 MCG tabletIndication s:Vitamin B12 deficiency (non anemic) Take 1 tablet (2,000 mcg) by mouth daily 90 tablet 3 3 Active ferrous sulfate (FEROSUL) 325 (65 Fe) MG tablet Take 325 mg by mouth daily (with breakfast) Active oxymetazoline (AFRIN) 0.05 % nasal spray Holding due to acute interstitial nephritis 3 Active insulin glargine (LANTUS PEN) 100 UNIT/ML penIndications:T ype 2 diabetes, HbA1c goal < 7% (H) Start this at 10 units if AM blood sugars consistently above 180. Stop if AM blood sugar under 100 and consult with your PCP. 15 mL 3 Active insulin lispro (HUMALOG KWIKPEN) 100 UNIT/ML (1 unit dial) KWIKPENIndicatio ns:Type 2 diabetes, HbA1c goal < 7% (H) Give before meals: For Pre-Meal Glucose: 140-189 give 1 unit 190-239 give 2 units 240-289 give 3 units 290-339 give 4 units = or >340 give 5 units. Add 1 unit if blood sugars consistently over 180. 15 mL 3 Active ranitidine (ZANTAC) 150 MG capsuleIndicatio ns:Gastroesophag eal reflux disease without esophagitis Take 1 capsule (150 mg) by mouth At Bedtime 3 Active sodium bicarbonate 650 MG tabletIndication s:Acute renal failure, unspecified acute renal failure type Take 1 tablet (650 mg) by mouth 2 times daily 60 tablet 3 3 Active ampicillin (PRINCIPEN) 500 MG capsuleIndicatio ns:Acute cystitis without hematuria Take 2 capsules (1,000 mg) by mouth 2 times daily 40 capsule 3 Active amLODIPine (NORVASC) 10 MG tabletIndication s:Essential hypertension with goal blood pressure less than 140/90 TAKE 1 TABLET BY MOUTH ONCE DAILY 90 tablet 4 Active Continuous Glucose Sensor (FREESTYLE CHERRY 14 DAY SENSOR) MISCIndications: Type 2 diabetes mellitus without complication, without long-term current use of insulin (H) APPLY ONE SENSOR TO THE BACK OF YOUR UPPER ARM. REPLACE EVERY 14 DAYS 6 each 3 4 Active Active Problems Problem Noted Date Diagnosed Date Anemia of chronic renal failure, stage 4 (severe ) 06/23/2023 Acute renal failure (ARF) 06/04/2023 Exertional chest pain 2023 Acute cystitis without hematuria 2023 Acute renal failure, unspecified acute renal luisa lure type 2023 Acute tubulo-interstitial nephritis 05/05/2023 Vitamin B12 deficiency (non anemic) 03/30/2023 Iron deficiency 03/30/2023 PFO (patent foramen ovale) 04/17/2022 High coronary artery calcium score 04/01/2022 Osteoarthritis of spine with radiculopathy, lumb ar region 02/13/2022 TIA (transient ischemic attack) 02/13/2022 Male hypogonadism 03/01/2021 BPH with obstruction/lower urinary tract symptom s 03/01/2021 Anemia, iron deficiency 11/24/2019 Class 1 obesity due to exces s calories with serious comorbidity and body mass index (BMI) of 32.0 to 32.9 in adult 11/24/2019 Nephrolithiasis 09/19/2019 Mild chronic anemia 03/29/2019 History of basal cell carcinoma 11/22/2018 Essential hypertension with goal blood pressure less than 140/90 07/03/2016 Lichen planus 10/05/2014 Overview (10/05/2014): Oral - topically managed with topical steroid per his oral surgeon/dentist Pain in right shoulder 10/05/2014 Primary localized osteoarthrosis, lower leg 07/26 Senile nuclear sclerosis 05/07/2011 Hyperlipidemia LDL goal <100 03/03/2010 Erectile dysfunction 09/06/2009 VICK (obstructive sleep apnea)- resolved with fabienne ght loss 08/23/2007 Overview (01/21/2016): Patient's weight loss has resulted in cessation of need - sleep testings negative recently Sleep study 11/24/2001 MSI- RDI 24.6 (270#) Study Date: 07/12/2015- (212.0 lbs) Apnea/hypopnea index was 2.0 events per hour. RDI was 3.5 events per hour. Lowest oxygen saturation was 89%. PLM Arousal Index was 4.0 per hour. Little supine sleep was seen. Disorder of bursae and tendons in shoulder regio n 11/20/2006 Overview (07/26/2015): Problem list name updated by automated process. Provider to review Lumbago 07/27/2006 Allergic rhinitis 05/20/2005 Overview (07/26/2015): Problem list name updated by automated process. Provider to review Gastroesophageal reflux disease without esophagi tis 02/22/2004 Type 2 diabetes, HbA1c goal < 7% Resolved Problems Problem Noted Date Diagnosed Date Resolved Date Anemia, unspecified type 2023 Anemia in other chronic dise ases classified elsewhere 03/26/2023 03/26/2023 Type 2 diabetes mellitus wit h hyperglycemia, unspecified whether group home insulin use 02/13/2022 06/12/2022 Pain of right lower leg 05/15/202107/27 Retroperitoneal bleed 09/16/20192021 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/19/20 19 Overview (08/05/2019): Added automatically from request for surgery [id number] Testicular mass 08/05/2019 09/19/2019 Overview (08/05/2019): Added automatically from request for surgery [id number] Type 2 diabetes mellitus, controlled 08/20/2015 06/22/2020 Right shoulder pain 10/30/2014 01/14/20 15 Skin lesion 06/20/2013 02/20/2015 Umbilical hernia 04/18/2011 07/05/2015 isidro JOINT PAIN-SHLDER 10/08/20062006 Disorder of bursae and tendo ns in shoulder region 10/06/2006 11/20/2006 Overview (07/26/2015): Problem list name updated by automated process. Provider to review Other orchitis, epididymitis , and epididymo-orchitis, without mention of abscess(604.99) 07/27/2006 07/03/2015 Routine general medical exam ination at a health care facility 03/31/2006 01/20/2013 Acute bronchitis 02/26/2006 02/20/2015 Hypertrophy of prostate with out urinary obstruction 07/31/2005 03/26/2023 Overview (07/26/2015): Problem list name updated by automated process. Provider to review Encounters Date Type Department Care Team Description 03/31/2025 Travel 03/31/2025 Ancillary Procedure [address] [place] [id number] Magdalena Fry MD Cryptogenic stroke (H) from Last 3 Months Immunizations Immunization Administration Dates Next Due COVID-19 MONOVALENT 12+ (Pfizer) 03/22/2021,050 04/2021 Flu, Unspecified 08/09/1997,08/22/1996 HEPA 04/16/2004,10/12/2003 Influenza (H1N1) 10/23/2009 Influenza (High Dose) Trival ent,PF (Fluzone) 08/06/2021,06/22/2020,08/23/2019,2017,10/22/2017,10/02/2016,08/23/2015 Influenza (IIV3) PF 07/18/2013, 1,08/13/2010,2008,08/30/2008,08/26/2007,09/10/2006,1 10/29/2004,09/12/2004,09/02/2002, 001,09/08/2000,08/30/1999 Influenza (prior to 2023) 08/20/2012 Influenza Vaccine 65+ (FLUAD) 07/16/2022 Influenza Vaccine 65+ (Fluzone HD) 08/06/2021, Influenza Vaccine >6 months,quad, PF 08/07/2014, 07/18/2013 Pneumo Conj 13-V (2010&after) 08/23/2015 Pneumococcal 23 valent 10/28/2016,01/05/2003 TD,PF 7+ (Tenivac) 10/12/2003 TDAP (Adacel,Boostrix) 03/26/2023 TDAP Vaccine (Boostrix) 01/04/2013 Typhoid IM 05/04/2019 Zoster recombinant adjuvante d (Shingrix) 06/12/2022,08/06/2021 Zoster vaccine, live 07/18/2013 Family History Medical History Relation Comments Allergies Daughter 1 Gynecology Daughter 2 Cancer Father Pancreatic Obesity Father Other Cancer Father C.A.D. Maternal Grandfather Heart attac k Cardiovascular Maternal Grandfather Heart attac k Heart Disease Maternal Grandfather Heart attac k Alzheimer Disease Maternal Grandmother Dementia ? Arthritis Maternal Grandmother Cerebrovascular Disease Maternal Grandmother Neurologic Disorder Maternal Grandmother Sroke Gynecology Mother Non-cancer hyste rectomy Hearing Loss Mother Uses hearing aid es Hyperlipidemia Mother Hypertension Mother Obesity Mother Osteoporosis Mother Blood Disease Paternal Grandfather Leukemia Allergies Sister Allergies Son Alcohol/Drug No family hx of Anesthesia Reaction No family hx of Asthma No family hx of Breast Cancer No family hx of Cancer - colorectal No family hx of Circulatory No family hx of Congenital Anomalies No family hx of Connective Tissue Disorder No family hx of Depression No family hx of Diabetes No family hx of Endocrine Disease No family hx of Gastrointestinal Disease No family hx of Genetic Disorder No family hx of Genitourinary Problems No family hx of Musculoskeletal Disorder No family hx of Prostate Cancer No family hx of Psychotic Disorder No family hx of Respiratory No family hx of Thyroid Disease No family hx of Relation Status Comments Daughter 1 Daughter 2 Father (Age 70) pancreatic can cer Maternal Grandfather Maternal Grandmother Mother Alive Paternal Grandfather Sister Alive Son Social History Tobacco Use Types Packs/Day Years Used Date Smoking Tobacco: Former Cigarettes 0.5 3 0 02/21/1971 - 02/21/1974 Pipe Passive Smoke Exposure: Never Smokeless Tobacco: Former Tobacco Cessation:Counseling Given: No Alcohol Use Standard Drinks/Week Comments Not Currently 0 (1 standard drink = 0.6 oz pur e alcohol) 3 drinks/week PHQ-2 Answer Date Recorded PHQ-2 Score 0 03/26/2023 Adolescent Education Answer Date Record ed Getting School Help Needed Not on file 07/18 Sex and Gender Information Value Date Recorded Sex Assigned at Male 07/18/2019 7:43 AM CDT Legal Sex Male 4:10 AM 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 Gender Identity Male 11/22/2018 10:40 AM 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 Sexual Orientation Straight 11/22/2018 10 :40 AM 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 Occupation Industry Job Start Date Job 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- [employer] Not on file Not on file Not on file Last Filed Vital Signs Vital Sign Reading Time Taken Comments Blood Pressure 158/76 06/07/2023 7:42 AM CDT Pulse 56 06/07/2023 7:42 AM CDT Temperature 36.4 C (97.5 F) 06/07/2023 7:42 AM CDT Respiratory Rate 18 06/07/2023 9:00 AM CDT Oxygen Saturation 94% 06/07/2023 7:42 AM CDT Inhaled Oxygen Concentration - - Weight 112.5 kg (248 lb 0.3 oz) 06/05/2023 7:00 PM CDT Height 180.3 cm (5' 11) 06/05/2023 7:00 PM CDT Body Mass Index 34.59 06/05/2023 7:00 PM CDT Plan of Treatment Upcoming Encounters Date Type Department Care Team (Late st Contact Info) Description 06/30/2025 Ancillary Procedure [address] [address] Magdalena Fry MD [address] [place] [phone] 10/02/2025 Ancillary Procedure [address] [place] [phone] Magdalena Fry MD [address] [place] [phone] Health Maintenance Due Date Last Done Comments CT COLONOGRAPHY 1950 PARATHYROID 1950 sDNA (Cologuard) 1950 RSV VACCINE (1 - Risk 60-74 years 1-dose series) 2010 DIABETIC FOOT EXAM 06/22/2021 06/22/2020, 0 02/04/2018, 10/02/2016, Additional history exists ANNUAL REVIEW OF HM ORDERS 06/12/2023 06/12/2022 MICROALBUMIN 06/26/2023 03/26/2023, 01/24, 09/05/2021, Additional history exists BMP 09/18/2023 06/18/2023, 05/26, 06/06/2023, Additional history exists A1C 09/25/2023 03/26/2023, 08/26, 06/12/2022, Additional history exists HEMOGLOBIN 12/19/2023 06/18/2023, 05/26, 06/06/2023, Additional history exists EYE EXAM 03/26/2024 03/26/2023, 02/23, 03/06/2022, Additional history exists FALL RISK ASSESSMENT 03/26/2024 03/26/2023, 03/01/2021, 06/22/2020, Additional history exists LIPID 03/26/2024 03/26/2023, 01/24, 03/22/2021, Additional history exists FIT 04/08/2024 04/08/2023, 04/08/2023 COVID-19 VACCINE ( season) 2024 07/16/2022, 03/22/2021, 03/01/2021 PHQ-2 (once per calendar year) 2024 03/26/2023, 06/12/2022, 06/12/2022, Additional history exists MEDICARE ANNUAL WELLNESS VISIT 11/14/2025 11/14/2024, 11/04/2023, 03/26/2023, Additional history exists LUNG CANCER SCREENING 01/12/2026 01/12/2025, 025 FLEX SIG 2027 2022 ADVANCE CARE PLANNING 03/26/2028 03/26/2023 , 05/19/2011, 05/19/2011 DTAP/TDAP/TD VACCINE (3 - Td or Tdap) 03/26/2033 03/26/2023, 01/04/2013, 10/12/2003 COLONOSCOPY 04/22/2033 04/22/2023, 03/27, 06/05/2022, Additional history exists COLORECTAL CANCER SCREENING 04/22/2033 PNEUMOCOCCAL VACCINE 50+ YEARS Completed 10/26/2022, 10/26/2022, 10/28/2016, Additional history exists ZOSTER VACCINE Completed 10/26/2022, 05/26, 08/06/2021, Additional history exists ALK PHOS Completed 2023, 08/0 10/2022, 03/26/2023, Additional history exists HEPATITIS C SCREENING Completed 05/28/2023, 016 URINALYSIS Completed 06/05/2023, 10/2022, 05/12/2023, Additional history exists PHOSPHORUS Completed 06/18/2023, 05/26, 06/06/2023, Additional history exists INFLUENZA VACCINE Completed 07/22/2024, , 10/26/2022, Additional history exists HPV VACCINE Aged Out No longer eligi ble based on patient's age to complete this topic MENINGITIS VACCINE Aged Out No longer eligible based on patient's age to complete this topic Medical Devices Implanted Type Area Tie Man Device Identifier Shelf Expiration Date Model / Serial / Lot Monitor Cardiac Linq Ii Insertable Lnq22 - [id number] Implanted:Qty: 1 on 08/25/2022 at [facility] Cardiac device (Non-Pacema ker) [employer] 11/06/2023 LNQ22 / [id number] / [id number] Eye Imp Iol Saul Pcl Tecnis Zcb00 23.0 Implanted:Qty: 1 on 09/29/2016 by Asif Mae MD at [facility] Lens/Eye Implant Right: Eye [employer] OPT 06/02/2020 ZCB00 23.0 / [id number] / Eye Imp Iol Saul Pcl Technis Zcb00 21.5 Implanted:Qty: 1 on 05/08/2011 at [facility] Left: Eye 12/23/2013 ZCB00 21.5 / [id number] / Procedures Procedure Name Priority Date/Time Associated Diagnosis Comments REMOTE IMPLANTABLE LOOP RECORDER INTERROGATION 30 DAY Routine 03/31/2025 10:38 AM CDT Cryptogenic stroke (H) HEMOGLOBIN Routine 06/18/2023 11:04 AM CDT Anemia, unspecified RENAL PANEL Routine 06/18/2023 11:04 AM CDT Acute kidney failure, unspecified ROUTINE UA WITH MICROSCOPIC Routine 06/05/2023 1:17 AM CDT HEPATITIS C ANTIBODY Routine 05/28/2023 6:46 PM CDT COMPREHENSIVE METABOLIC PANEL STAT 2023 2:39 PM CDT COLONOSCOPY Routine 04/22/2023 12:42 PM CDT FECAL COLORECTAL CANCER SCREEN FIT Routine 04/08/2023 11:05 AM CDT Iron deficiency anemia, unspecified iron deficiency anemia type LIPID REFLEX TO DIRECT LDL PANEL Routine 03/26/2023 10:53 AM CDT Hyperlipidemia LDL goal <100 HEMOGLOBIN A1C Routine 03/26/2023 10:53 AM CDT Type 2 diabetes, HbA1c goal < 7% (H) ALBUMIN RANDOM URINE QUANTITATIVE Routine 03/26/2023 10:34 AM CDT Type 2 diabetes, HbA1c goal < 7% (H) EYE EXAM - HIM SCAN 03/26/2023 1 2:00 AM CDT C FOOT EXAM Routine 06/27/2014 1:17 PM CDT Type 2 diabetes, HbA1C goal < 7% (H) from Last 3 Months or Most Recently Relevant to Health Maintenance Results * REMOTE IMPLANTABLE LOOP RECORDER INTERROGATION 30 DAY (03/31/2025 10:38 AM CDT) Date Time Interrogation Session [id number] [employer] Implantable Pulse Generator Tie Man Medtronic [employer] Implantable Pulse Generator Model LNQ22 LINQ II [employer] Implantable Pulse Generator Serial Number [id number] [employer] Type Interrogation Session Remote [employer] Clinic Name [facility] [employer] Implantable Pulse Generator Type Implantable Diagnostic Monitor [employer] Implantable Pulse Generator Implant Date [id number] [employer] Battery Date Time of Measurements [id number] [employer] Atrial Tachy Statistic AT/AF [place] Percent 0 % [employer] Episode Statistic Recent Count 0 [employer]TR[employer] Episode Statistic Type Category AT/AF [employer] Episode Statistic Recent Count 0 [employer] Episode Statistic Type Category ASYSTOLE [employer] Episode Statistic Recent Count 0 MEDTRONIC Episode Statistic Type Category CHRIS [employer] Episode Statistic Recent Count 0 [employer]TR[employer]IC Episode Statistic Type Category Patient Activated [employer] Episode Statistic Recent Date Time Start [id number] [employer] Episode Statistic Recent Date Time End [employer] Episode Statistic Recent Date Time Start [employer]TRONIC Episode Statistic Recent Date Time End [employer]TR[employer]IC Episode Statistic Recent Date Time Start [employer] Episode Statistic Recent Date Time End MEDTR[employer]IC Episode Statistic Recent Date Time Start [employer] Episode Statistic Recent Date Time End [employer] Anatomical Region Laterality Modality Other 03/31/2025 12:0 8 AM CDT Narrative 04/13/2025 10:45 PM CDT Remote loop recorder transmission received and reviewed. Device transmission sent per MD orders. Device: Medtronic LNQ22 LINQ II Normal Device Function Presenting EGM: NSR 68 bpm Patient Activated Episodes: 0 Tachy Episodes: 0 Pause Episodes: 0 Chris Episodes: 0 AF Episodes: 0 AT/AF [place]: 0% Anticoagulant: None PVCs (% beats): 0% Loop recorder battery status = Good Plan: Automatic remote transmission as scheduled on 06/30/25. Altaf Maynard, Device Specialist Remote Loop Recorder I have reviewed and interpreted the device interrogation, settings, programming and nurse's summary. The device is functioning within normal device parameters. I agree with the current findings, assessment and plan. Magdalena Fry MD [facility] ORDERABLES F inal Result * (ABNORMAL) Renal panel (06/18/2023 11:04 AM CDT) Sodium 136 136 - 145 mmol/L 06/18/2023 9:51 PM CDT [facility] Potassium 4.8 3.4 - 5.3 mmol/L 06/18/2023 9:51 PM CDT [facility] Chloride 101 98 - 107 mmol/L 06/18/2023 9:51 PM CDT [facility] Carbon Dioxide (CO2) 23 22 - 29 mmol/L 06/18/2023 9:51 PM CDT [facility] Anion Gap 12 7 - 15 mmol/L 06/18/2023 9:51 PM CDT [facility] Glucose 279(H) 70 - 99 mg/dL 06/18/2023 9:51 PM CDT [facility] Urea Nitrogen 52.9(H) 8.0 - 23.0 mg/dL 06/18/2023 9:51 PM CDT [facility] Creatinine 2.19(H) 0.67 - 1.17 mg/dL 06/18/2023 9:51 PM CDT [facility] GFR Estimate 31(L) >60 mL/min/1.7 3m2 06/18/2023 9:51 PM CDT [facility] Calcium 9.7 8.8 - 10.2 mg/dL 06/18/2023 9:51 PM CDT [facility] Albumin 3.9 3.5 - 5.2 g/dL 06/18/2023 9:51 PM CDT [facility] Phosphorus 3.6 2.5 - 4.5 mg/dL 06/18/2023 9:51 PM CDT [facility] Blood BLOOD SPECIMEN / Unknown Venipuncture / Unknown 06/18/2023 11:04 AM CDT 06/18/2023 4:28 PM CDT Paulo Rust MD LAB - BLOOD ORDERABLES Final Result [facility] [address] [facility], [address] [address], [facility] [phone] * (ABNORMAL) Hemoglobin (06/18/2023 11:04 AM CDT) [facility] Hemoglobin 9.2(L) 13.3 - 17.7 g/dL 06/18/2023 4:42 PM CDT [facility] Blood BLOOD SPECIMEN / Unknown Venipuncture / Unknown 06/18/2023 11:04 AM CDT 06/18/2023 4:28 PM CDT Paulo Rust MD LAB - BLOOD ORDERABLES Final Result [facility] [address], [address] [place] [address], [facility] [phone] * (ABNORMAL) UA with Microscopic (06/05/2023 1:17 AM CDT) Color Urine Straw Colorless, Straw, Light Yellow, Yellow 06/05/2023 1:48 AM CDT LABORATORY Appearance Urine Clear Clear 06/05/20 1:48 AM CDT LABORATORY Glucose Urine 100(A) Negative mg/dL 06/05/2023 1:48 AM CDT LABORATORY Bilirubin Urine Negative Negative 1:48 AM CDT LABORATORY Ketones Urine Negative Negative mg/dL 06/05/2023 1:48 AM CDT LABORATORY Specific [place] Urine 1.011 1.003 - 1.035 06/05/2023 1:48 AM CDT LABORATORY Blood Urine Negative Negative 06/05/2023 1:48 AM CDT LABORATORY pH Urine 5.5 5.0 - 7.0 06/05/2023 1:48 AM CDT LABORATORY Protein Albumin Urine 10(A) Negative mg/dL 06/05/2023 1:48 AM CDT LABORATORY Urobilinogen Urine Normal Normal, 2.0 mg/dL 06/05/2023 1:48 AM CDT LABORATORY Nitrite Urine Negative Negative 06/05/2023 1:48 AM CDT LABORATORY Leukocyte Esterase Urine Negative Negative 06/05/2023 1:48 AM CDT LABORATORY RBC Urine 1 <=2 /HPF 06/05/2023 1:48 AM CDT LABORATORY WBC Urine <1 <=5 /HPF 06/05/2023 1:48 AM CDT LABORATORY Urine URINE SPECIMEN OBTAINED BY CLEAN CATCH PROCEDURE / Unknown Non-blood Collection / Unknown 06/05/2023 1:17 AM CDT 06/05/2023 1:27 AM CDT us Kennedy Mcnulty MD LAB - URINE ORDERABLES Final Result LABORATORY [facility] [address] floor, [address] [place] [address], [facility] [phone] * Hepatits C antibody (05/28/2023 6:46 PM CDT) [facility] Hepatitis C Antibody Nonreactive Nonreactive 05/29/2023 11:39 AM CDT SPECIALTY CORE/PROT/EN DO Blood BLOOD SPECIMEN / Unknown Venipuncture / Unknown 05/28/2023 6:46 PM CDT 05/28/2023 6:50 PM CDT Narrative SPECIALTY CORE/PROT/ENDO - 05/29/2023 11:39 AM CDT Assay performance characteristics have not been established for newborns, infants, and children. us Kennedy Mcnulty MD LAB - BLOOD ORDERABLES Final Result SPECIALTY CORE/PROT/ENDO Specialty Core/Prot/Endo [address] [facility], [address] [phone] * (ABNORMAL) Comprehensive metabolic panel (2023 2:39 PM CDT) [facility] Sodium 139 136 - 145 mmol/L 2023 3:33 PM CDT LABORATORY Potassium 4.5 3.4 - 5.3 mmol/L 2023 3:33 PM CDT LABORATORY Chloride 105 98 - 107 mmol/L 2023 3:33 PM CDT LABORATORY Carbon Dioxide (CO2) 17(L) 22 - 29 mmol/L 2023 3:33 PM CDT LABORATORY Anion Gap 17(H) 7 - 15 mmol/L 2023 3:33 PM CDT LABORATORY Urea Nitrogen 45.3(H) 8.0 - 23.0 mg/dL 2023 3:33 PM CDT LABORATORY Creatinine 3.09(H) 0.67 - 1.17 mg/dL 2023 3:33 PM CDT LABORATORY Calcium 9.3 8.8 - 10.2 mg/dL 2023 3:33 PM CDT LABORATORY Glucose 161(H) 70 - 99 mg/dL 2023 3:33 PM CDT LABORATORY Alkaline Phosphatase 140(H) 40 - 129 U/L 2023 3:33 PM CDT LABORATORY AST 12 0 - 45 U/L 2023 3:33 PM CDT LABORATORY Comment:Reference intervals for this test were updated on 04/06/2023 to more accurately reflect our healthy population. There may be differences in the flagging of prior results with similar values performed with this method. Interpretation of those prior results can be made in the context of the updated reference intervals. ALT 15 0 - 70 U/L 2023 3:33 PM CDT LABORATORY Comment:Reference intervals for this test were updated on 04/06/2023 to more accurately reflect our healthy population. There may be differences in the flagging of prior results with similar values performed with this method. Interpretation of those prior results can be made in the context of the updated reference intervals. Protein Total 7.5 6.4 - 8.3 g/dL 2023 3:33 PM CDT LABORATORY Albumin 4.1 3.5 - 5.2 g/dL 2023 3:33 PM CDT LABORATORY Bilirubin Total 0.2 <=1.2 mg/dL 2023 3:33 PM CDT LABORATORY GFR Estimate 21(L) >60 mL/min/1. 73m2 2023 3:33 PM CDT LABORATORY Blood BLOOD SPECIMEN / Unknown Venipuncture / Unknown 2023 2:39 PM CDT 2023 2:43 PM CDT us Emilee Kumar MD LAB - BLOOD ORDERABLES Final Result LABORATORY [facility] [address] 1[address], [address] [place] [address], [place] [phone] * COLONOSCOPY (04/22/2023 12:42 PM CDT) [facility] COL[facility]OS[facility] [address] [place], [place] [address]s., [place] [address] [phone] Endoscopy Department Patient Name: Neo Solis Procedure Date: 04/22/2023 12:42 PM Date of : 1950 Admit Type: Outpatient Age: 72 Room: [facility] PROCEDURE ROOM 02 Gender: Male Note Status: Finalized Attending MD: LC SUAREZ MD, Pause for the Cause: Completed Total Sedation Time: 38 minutes Procedure: Colonoscopy Indications: Positive fecal immunochemical test, Iron deficiency anemia Providers: LC SUAREZ MD, Ashlie Mac RN Patient Profile: 72yo M with CHIKIS and FIT+ Referring MD: LUIS RAO Medicines: Fentanyl 25 micrograms IV, Midazolam 1 mg IV (see egd) Complications: No immediate complications. Procedure: Pre-Anesthesia Assessment: - See H&P note in EHR After obtaining informed consent, the colonoscope was passed under direct vision. Throughout the procedure, the patient's blood pressure, pulse, and oxygen saturations were monitored continuously. The Colonoscope was introduced through the anus and advanced to the terminal ileum. The colonoscopy was performed with ease. The patient tolerated the procedure well. The quality of the bowel preparation was evaluated using the BBPS ([place] Bowel Preparation Scale) with scores of: Right Colon = 3, Transverse Colon = 3 and Left Colon = 3 (entire mucosa seen well with no residual staining, small fragments of stool or opaque liquid). The total BBPS score equals 9. Findings: The perianal and digital rectal examinations were normal. Scattered venous blebs and venous lakes were found in the entire colon. For two of the blebs, superficial biopsies were taken with a cold forceps for histology. Internal hemorrhoids were found during retroflexion. The hemorrhoids were small. The terminal ileum appeared normal. Impression: - Scattered venous blebs and venous lakes were found in the entire examined colon. Biopsied. - Internal hemorrhoids. - The examined portion of the ileum was normal. Recommendation: - The venous blebs pay possibly explain the +FIt and CHIKIS though no blebs were actively bleeding or oozing despite biopsies taken of two of the blebs. - Conside referral to heme - Return to referring physician. Electronically Signed by Dr Christie Suarez LC SUAREZ MD 04/22/2023 1:54:49 PM I was physically present for the entire viewing portion of the exam. Signature of teaching physician LC SUAREZ MD Number of Addenda: 0 Note Initiated On: 04/22/2023 12:42 PM Scope In: Scope Out: RADIOLOGY RESULTS 04/22/2023 12:4 2 PM CDT Luis Rao MD PROCEDURES Final Result RADIOLOGY RESULTS * (ABNORMAL) Fecal colorectal cancer screen (FIT) (04/08/2023 11:05 AM CDT) Occult Blood Screen FIT Positive(A ) Negative 04/08/2023 9:26 PM CDT [facility] Stool RECTAL CONTENTS / Unknown Non-blood Collection / Unknown 04/08/2023 11:05 AM CDT 04/08/2023 12:42 PM CDT Luis Rao MD LAB - STOOLS ORDERABLES Final R esult [facility] [address] [facility], [address] [place] [address], [facility] [phone] * (ABNORMAL) Lipid panel reflex to direct LDL Non-fasting (03/26/2023 10:53 AM CDT) Cholesterol 135 <200 mg/dL 03/26/2023 3:41 PM CDT [facility] Triglycerides 150(H) <150 mg/dL 03/26/2023 3:41 PM CDT [facility] Direct Measure HDL 58 >=40 mg/dL 03/26/2023 3:41 PM CDT [facility] LDL Cholesterol Calculated 47 <=100 mg/dL 03/26/2023 3:41 PM CDT [facility] Non HDL Cholesterol 77 <130 mg/dL 03/26/2023 3:41 PM CDT [facility] Blood STRUCTURE OF LEFT HAND / Unknown Venipuncture / Unknown 03/26/2023 10:53 AM CDT 03/26/2023 10:53 AM CDT Narrative [facility] - 03/26/2023 3:41 PM CDT Cholesterol Desirable: <200 mg/dL Triglycerides Normal: Less than 150 mg/dL Borderline High: 150-199 mg/dL High: 200-499 mg/dL Very High: Greater than or equal to 500 mg/dL Direct Measure HDL Female: Greater than or equal to 50 mg/dL Male: Greater than or equal to 40 mg/dL LDL Cholesterol Desirable: <100mg/dL Above Desirable: 100-129 mg/dL Borderline High: 130-159 mg/dL High: 160-189 mg/dL Very High: >= 190 mg/dL Non HDL Cholesterol Desirable: 130 mg/dL Above Desirable: 130-159 mg/dL Borderline High: 160-189 mg/dL High: 190-219 mg/dL Very High: Greater than or equal to 220 mg/dL us Luis Rao MD LAB - BLOOD ORDERABLES Final Re sult [facility] [address] [facility], [address] [place] [address], [facility] [phone] * (ABNORMAL) HEMOGLOBIN A1C (03/26/2023 10:53 AM CDT) Hemoglobin A1C 6.8(H) 0.0 - 5.6 % 03/26/2023 11:06 AM CDT [facility] Comment: Normal <5.7% Prediabetes 5.7-6.4% Diabetes 6.5% or higher Note: Adopted from ADA consensus guidelines. Blood STRUCTURE OF LEFT HAND / Unknown Venipuncture / Unknown 03/26/2023 10:53 AM CDT 03/26/2023 10:53 AM CDT us Luis Rao MD LAB - BLOOD ORDERABLES Final Re sult LABORATORY [facility] [address] [facility] (no room number, 1st floor of clinic) [place] [address], [facility] [phone] * Albumin Random Urine Quantitative with Creat Ratio (03/26/2023 10:34 AM CDT) Creatinine Urine mg/dL 30.6 mg/dL 03/26/2023 4:03 PM CDT [facility] Comment:The reference ranges have not been established in urine creatinine. The results should be integrated into the clinical context for interpretation. Albumin Urine mg/L <12.0 mg/L 2022 4:03 PM CDT [facility] Comment:The reference ranges have not been established in urine albumin. The results should be integrated into the clinical context for interpretation. Albumin Urine mg/g Cr 03/26/2023 4:03 PM CDT [facility] Comment: Unable to calculate, urine albumin and/or urine creatinine is outside detectable limits. Microalbuminuria is defined as an albumin:creatinine ratio of 17 to 299 for males and 25 to 299 for females. A ratio of albumin:creatinine of 300 or higher is indicative of overt proteinuria. Due to biologic variability, positive results should be confirmed by a second, first-morning random or 24-hour timed urine specimen. If there is discrepancy, a third specimen is recommended. When 2 out of 3 results are in the microalbuminuria range, this is evidence for incipient nephropathy and warrants increased efforts at glucose control, blood pressure control, and institution of therapy with an skyhhtghbwt-crgdlkhzcf-hwhldc (DIEGO) inhibitor (if the patient can tolerate it). Urine URINE SPECIMEN / Unknown Non-blood Collection / Unknown 03/26/2023 10:34 AM CDT 03/26/2023 10:34 AM CDT Luis Rao MD LAB - URINE ORDERABLES Final Re sult LABORATORY [facility] [address] [facility], [address] [place] [address], [facility] [phone] * EYE EXAM - HIM SCAN (03/26/2023 12:00 AM CDT) RETINOPATHY NEGATIVE 03/26/2023 us Provider Outside OTHER Edited Result - Final from Last 3 Months or Most Recently Relevant to Health Maintenance [place] [address] [id number] MEDICARE ADVANTAGE MEDICARE ADVANTAGE * Guarantor: [employer] Account Type Relation to Patient Date of Phone Billing Address Medication Therapy Self 1950 [address] [place] [address] MEDICARE ADVANTAGE Advance Directives For more information, please contact: [phone] * Full Code (Latest Code Status on File) Date Activated Date Inactivated Comments 06/04/2023 11:19 PM 06/07/2023 7:33 PM All basic a nd advanced life-sustaining interventions are performed as appropriate Question Answer Comments Code status determined by: Discussion with patie nt/ legal decision maker * Full Code Date Activated Date Inactivated Comments 2023 5:33 PM 05/30/2023 3:21 PM All basic and advanced life-sustaining interventions are performed as appropriate Question Answer Comments Code status determined by: Discussion with patie nt/ legal decision maker * Full Code Date Activated Date Inactivated Comments 09/16/2019 10:43 PM 09/18/2019 1:54 PM Question Answer Comments Code status determined by: Discussion with patie nt/legal decision maker * No Code Status Date Activated Date Inactivated Comments 02/21/2004 9:42 AM 02/21/2004 9:42 AM Care Teams Atomic Fuel Assembler Relationship Specialty Start Date End Date Luis Rao MD PCP - General Internal Medicine 09/19/19 Luis Rao MD [address] [facility] [place] [address] Assigned PCP 03/21/21 Luis Rao MD [address] [place] [id number] Referring Physician Internal Medicine 04/02/22 Russell Agosto MD [address] [place] [address] [address] [place], [place] [id number] Neurology 04/02/22 Doris Chaney, [facility] [place] [address] [place] [phone] Pharmacist Pharmacist 07/21/22 [place] [address] [place] [address] Nephrology 05/14/23
--- OUTSIDE RECORDS SUMMARY | 2025-04-22 10:07 | XMS_ITS | Encounter Summary ---
Author Organization [place] [facility] Address [address] [place] [address] Care Team Providers Care Mule Tender Name Role Phone Alex Rao MD Primary Care Provider [phone] Alex Rao MD Unavailable [phone] Nate Leong MD Unavailable [phone] Sharri Hdez MD Unavailable [phone] Alex Rao MD Unavailable [phone] Alex Rao MD Unavailable [phone] Russell Agosto MD Unavailable [phone] Magdalena Fry MD Unavailable Doris Chaney [facility] Unavailable Doris Chaney [facility] Unavailable [phone] Canelo Kelley MD Unavailable Encounter Details Date Type Department Care Team (Late st Contact Info) Description 12/13/2020 Maddi Wagner [address] [address] Sharri Hdez MD [address] [facility] [address] [place] [address] Social History Tobacco Use Types Packs/Day Years Used Date Smoking Tobacco: Former Cigarettes 0.5 3 0 02/21/1971 - 02/21/1974 Pipe Smokeless Tobacco: Former Alcohol Use Standard Drinks/Week Comments Yes 0 (1 standard drink = 0.6 oz pur e alcohol) 3 drinks/week PHQ-2 Answer Date Recorded PHQ-2 Score 0 11/02/2018 Sex and Gender Information Value Date Recorded Sex Assigned at Male 07/18/2019 7:43 AM CDT Legal Sex Male 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 No / Unsure 12/10/2020 9:51 AM TOBACCO DRYING MACHINE OPERATOR documented as of this encounter Plan of Treatment Upcoming Encounters Date Type Department Care Team (Late st Contact Info) Description 06/30/2025 Ancillary Procedure [address] [address] Magdalena Fry MD [address] [place] [address] [phone] 10/02/2025 Ancillary Procedure [address] [phone] Magdalena Fry MD [address] [place] [address] [phone] documented as of this encounter Visit Diagnoses Not on filedocumented in this encounter Care Teams Mule Tender Relationship Specialty Start Date End Date Alex Rao MD PCP - General Internal Medicine 09/19/19 Alex Rao MD [address] [place] [address] Assigned PCP 02/26/20 03/20/21 Nate Leong MD [address] [id number] Assigned Surgical Provider 08/17/20 11/07/22 Sharri Hdez MD [address] [address] Assigned Endocrinology Provider 12/16/20 03/16/24 Alex Rao MD [address] [place] [address] Assigned PCP 03/21/21 Alex Rao MD [address] [place] [address] Referring Physician Internal Medicine 04/02/22 Russell Agosto MD [address] 226[address] Neurology 04/02/22 Magdalena Fry MD [address] [place] [phone] Assigned Heart and Vascular Provider 04/26/22 02/15/24 Doris Chaney [facility] [address] [place] [address] Pharmacist Pharmacist 07/21/22 Doris Chaney [facility] [address] [place] [address] Assigned MTM Pharmacist 07/26/2202/14 [place] [address] [place], [place] [phone] Nephrology 05/14/23 documented as of this encounter
--- OUTSIDE RECORDS SUMMARY | 2025-04-22 10:07 | XMS_ITS | Referral Summary ---
Author Organization [facility] Address [address] [place] [address] Care Team Providers Care Picking Crew Supervisor Name Role Phone John Wilcox MD Unavailable [phone] Mega Allen Primary Care Provider [phone] Allergies Active Allergy Reactions Criticality Noted Date Comments Animal Dander Difficulty breathing,Swelling, lips/tongue,Shortne ss of breath 04/18/2011 Other Reaction(s): eye swelling Cat Hair Standardized Allergenic Extract Cough,Swelling, lips/tongue 04/18/2011 Cat and Dog dander Sucrose Unknown Low 12/10/2020 Patient states he experiences a dry, scratchy throat Sulfa (Sulfonamide Antibiotics) Rash High 02/22/2004 Other Reaction(s): facial swelling, flushing, Not available Sulfamethoprim Ds Rash 02/22/2013 Medications coenzyme Q10 (COQ 10) 100 mg oral Cap Take 4 capsules (400 mg) by mouth once daily. 4 Active pantoprazole (PROTONIX) 40 mg oral delayed release tablet Take 1 tablet (40 mg) by mouth once daily. Active azelastine 137 mcg/actuation (ASTELIN) 137 mcg (0.1 %) Nasal [place] nasal spray Instill 2 sprays into EACH nare twice a day. Active cyanocobalamin 1,000 mcg oral tablet Take 1 tablet (1,000 mcg) by mouth once daily. Gummies Active fluticasone (FLONASE) 50 mcg/actuation nasal spray Instill 2 sprays into EACH nare ONCE DAILY. Active semaglutide (OZEMPIC) 1 mg/dose (4 mg/3 mL) SubQ pen Inject 1 mg under the skin every 7 (seven) days. Active lisinopriL (PRINIVIL) 10 mg oral tablet Take 1 tablet (10 mg) by mouth once daily. 4 Active rosuvastatin (CRESTOR) 10 mg oral tablet Take 1 tablet (10 mg) by mouth once daily. Active sodium bicarbonate 650 mg oral tablet Take 2 tablets (1,300 mg) by mouth twice a day. Active Tadalafil 5 mg oral tablet Take 1 tablet (5 mg) by mouth once daily. 4 Active tamsulosin (FLOMAX) 0.4 mg oral capsule Take 2 capsules (0.8 mg) by mouth Daily. Takes 2 at night 3 Active testosterone cypionate (DEPO-TESTOSTERO NE) 200 mg/mL IM Oil IM injection Inject 1 mL (200 mg) into the muscle ONCE. 4 Active flash glucose sensor (FREESTYLE CHERRY 14 DAY SENSOR) Kit APPLY ONE SENSOR TO THE BACK OF YOUR UPPER ARM. REPLACE EVERY 14 DAYS. Active Levocetirizine 5 mg oral tablet Take 1 tablet (5 mg) by mouth once daily. Active Active Problems Problem Noted Date Diagnosed Date S/P hip replacement, right 06/18/2022 Transient neurological symptoms 05/28/2022 Assessment & Plan (05/28/2022 10:53 AM CDT): PROBLEMS 1. Four episodes of transient speech difficulty lasting under 5 minutes. Potential causes can include transient ischemic attach (TIA). Other possibilities include TIA mimics such as partial seizure 2. Diabetes 3. Hypertension 4. Hyperlipidemia RECOMMENDATIONS 1. Recommend brain MRI with and without contrast 2. Check EEG to screen for any sign of seizure or epileptiform activity 3. Discontinue plavix 4. Continue aspirin 81 mg daily 5. Continue treatment of vascular risk factors - diabetes, blood pressure, cholesterol 6. If the heart monitor shows atrial fibrillation, you will need a different blood thinner High coronary artery calcium score 04/01/2022 Osteoarthritis of spine with radiculopathy, lumb ar region 02/13/2022 TIA (transient ischemic attack) 02/13/2022 Type 2 diabetes mellitus wit h hyperglycemia, unspecified whether half-way insulin use 02/13/2022 BPH with obstruction/lower urinary tract symptom s 03/01/2021 Male hypogonadism 03/01/2021 Class 1 obesity due to exces s calories with serious comorbidity and body mass index (BMI) of 32.0 to 32.9 in adult 11/24/2019 Nephrolithiasis 09/19/2019 Retroperitoneal bleed 09/16/2019 History of basal cell carcinoma 11/22/2018 Essential hypertension with goal blood pressure less than 140/90 07/03/2016 Senile nuclear sclerosis 05/07/2011 Hyperlipidemia LDL goal <100 03/03/2010 Erectile dysfunction 09/06/2009 VICK (obstructive sleep apnea) 08/23/2007 Overview (05/28/2022): Patient's weight loss has resulted in cessation [...] tendons in shoulder regio n 11/20/2006 Overview (05/28/2022): Problem list name updated by automated process. Provider to review Hypertrophy of prostate without urinary obstruct ion 07/31/2005 Overview (05/28/2022): Problem list name updated by automated process. Provider to review Allergic rhinitis 05/20/2005 Overview (05/28/2022): Problem list name updated by automated process. Provider to review Gastroesophageal reflux disease without esophagi tis 02/22/2004 Immunizations Immunization Administration Dates Next Due H1N1 Influenza 10/23/2009 Hep A Adult 04/16/2004,10/12/2003 Influenza High Dose (Fluzone Quadrivalent PF) 08/06/2021,06/22/2020,08/23/2019,08/05,10/22/2017,10/02/2016,08/23/2015 Influenza recombinant (FluBl ok Quadrivalent PF) 08/07/2014,07/18/2013 Pfizer 12+ Yrs Monovalent CO VID Vaccine (purple cap) 03/22/2021,03/01/2021 Pneumococcal PCV13 08/23/2015 Pneumococcal PPSV23 10/28/2016,01/05/2003 Td adult absorbed PF (2 Lf) 10/12/2003 Tdap 01/04/2013 Typhoid capsular polysaccharide 05/04/2019 Zoster Live 07/18/2013 Zoster Recombinant 08/06/2021 Social History Tobacco Use Types Packs/Day Years Used Date Smoking Tobacco: Former Cigarettes S tarted: 1973 Smokeless Tobacco: Never Tobacco Cessation:Counseling Given: Not Answered Comments:Quit in 1973 Alcohol Use Standard Drinks/Week Comments Yes 0 (1 standard drink = 0.6 oz pure alcohol) very little beer with tacos every 3 months if that Sex and Gender Information Value Date Recorded Sex Assigned at Not on file Legal Sex Male 11:40 AM CDT Gender Identity Not on file Sexual Orientation Straight 05/23/2022 9: 03 PM CDT Last Filed Vital Signs Vital Sign Reading Time Taken Comments Blood Pressure 126/68 12/28/2024 1:45 PM BUS WASHER Pulse 82 12/28/2024 1:45 PM BUS WASHER Temperature 36.3 C (97.3 F) 11/22/2024 9:40 AM BUS WASHER Respiratory Rate 18 11/22/2024 10:30 AM BUS WASHER Oxygen Saturation 98% 12/28/2024 1:45 PM BUS WASHER Inhaled Oxygen Concentration - - Weight 114.3 kg (252 lb) 12/28/2024 1:45 PM BUS WASHER Height 182.9 cm (6') 12/28/2024 1:45 PM BUS WASHER Body Mass Index 34.18 12/28/2024 1:45 PM BUS WASHER Plan of Treatment Not on file Medical Devices Implanted Type Area Apparatus Lineman Device Identifier Shelf Expiration Date Model / Serial / Lot Fm Hd [facility] 36/+1.5 1365-36-310 - [id number] Implanted:Qt y: 1 on 06/18/2022 by Salvatore Blanton MD at [facility] Head Right: Hip Neymar & Neymar [id number] 0 / / Mesh Vntrlght St W Echo Ps 6x8 - [id number] Implanted:Qt y: 1 on 02/23/2013 by Dallas Dejesus MD at [facility] Mesh/pat ch N/A: Abdomen [employer] 12/24/2014 [id number] / / [id number] [place] H J&J Elmn 1246-03-000 - [id number] Implanted:Qt y: 1 on 06/18/2022 by Salvatore Blanton MD at [facility] Mesh/pat ch Right: Hip [employer] [id number] 02/23/2032 0 / / [id number] Stem Actis High Size 6 - [id number] Implanted:Qt y: 1 on 06/18/2022 by Salvatore Blanton MD at [facility] Stem Right: Hip [employer] [id number] 01/24/2032 1010-09-30 0 / / [id number] Sector Cup W/Gription 56mm - [id number] Implanted:Qt y: 1 on 06/18/2022 by Salvatore Blanton MD at [facility] Total joint Right: Hip [employer] [id number] 03/25/2032 6 / / [id number] Screw J&J 40 1217-40-500 - [id number] Implanted:Qt y: 1 on 06/18/2022 by Salvatore Blanton MD at [facility] Total joint Right: Hip [employer] [id number] 12/24/2031 0 / / [id number] Lnr J&J Ntl 36x56 1221-36-056 - [id number] Implanted:Qt y: 1 on 06/18/2022 by Salvatore Blanton MD at [facility] Total joint Right: Hip [employer] [id number] 03/25/2027 6 / / [id number] Procedures Procedure Name Priority Date/Time Associated Diagnosis Comments BASIC METAB PROFILE Routine 06/19/2022 6 :59 AM CDT from Last 3 Months or Most Recently Relevant to Health Maintenance Results * (ABNORMAL) Basic Metabolic Profile (06/19/2022 6:59 AM CDT) Sodium 136 136 - 145 mmol/L DIMENSION EXL ANALYZER 06/19/2022 7:41 AM CDT [facility] Potassium 4.4 3.5 - 5.1 mmol/L DIMENSION EXL ANALYZER 06/19/2022 7:41 AM T [facility] Chloride 102 98 - 107 mmol/L DIMENSION EXL ANALYZER 06/19/2022 7:41 AM T [facility] Carbon Dioxide 24 21 - 32 mmol/L DIMENSION EXL ANALYZER 06/19/2022 7:41 AM [facility] BUN (Urea Nitro) 24(H) 7 - 18 mg/dL DIMENSION EXL ANALYZER 06/19/2022 7:41 AM [facility] Creatinine 1.20 0.70 - 1.30 mg/dL DIMENSION EXL ANALYZER 06/19/2022 7:41 AM [facility] Est GFR (CKD-EPI) >60.00 >60.00 mL/min/1. 73m2 DIMENSION EXL ANALYZER 06/19/2022 7:41 AM T [facility] Comment:Calculation based on the Chronic Kidney Disease Epidemiology Collaboration (CKD-EPI) equation refit without adjustment for race. Glucose 149(H) 70 - 110 mg/dL DIMENSION EXL ANALYZER 06/19/2022 7:41 AM T [facility] Calcium, Serum 8.8 8.5 - 10.1 mg/dL DIMENSION EXL ANALYZER 06/19/2022 7:41 AM [facility] Anion Gap 10.0 0.0 - 15.0 mmol/L DIMENSION EXL ANALYZER 06/19/2022 7:41 AM [facility] Blood 06/19/2022 6:59 AM CDT 06/19/2022 7:22 AM CDT us No Contreras DO CHEMISTRY ORDERABLE Final Resul t [facility] [address] [place] [address] from Last 3 Months or Most Recently Relevant to Health Maintenance Insurance [facility] MEDICARE ADVANTAGE [facility] MEDICARE ADVANTAGE [facility] MEDICARE ADVANTAGE Advance Directives For more information, please contact: [phone] * Full Code (Latest Code Status on File) Date Activated Date Inactivated Comments 06/18/2022 12:47 PM 06/19/2022 6:12 PM Question Answer Comments How was code status determined? Physician Determ ined Care Teams Picking Crew Supervisor Relationship Specialty Start Date End Date Mega Allen [address] [place] [address] PCP - General 07/09/24 John Wilcox MD [address] [place] [address] Neurology 04/25/22
--- OUTSIDE RECORDS SUMMARY | 2025-04-22 10:07 | XMS_ITS | Encounter Summary ---
Author Organization [facility] Address [address] [place] [address] Care Team Providers Care Smasher Hand Name Role Phone Alex Rao MD Primary Care Provider [phone] Alex Rao MD Unavailable [phone] Nate Leong MD Unavailable [phone] Sharri Hdez MD Unavailable Alex Rao MD Unavailable [phone] Alex Rao MD Unavailable [phone] Russell Agosto MD Unavailable [phone] Magdalena Fry MD Unavailable Doris Chaney [facility] Unavailable Doris Chaney [facility] Unavailable Canelo Kelley MD Unavailable Encounter Details Date Type Department Care Team (Late st Contact Info) Description 02/07/2021 [facility] Avila [address] [address] Rehana Hoyt Social History Tobacco Use Types Packs/Day Years [...] AM CDT Legal Sex Male 4:10 AM CV RN Gender Identity Male 11/22/2018 10:40 AM CV RN Sexual Orientation Straight 11/22/2018 10 :40 AM CV RN Occupation Industry Job Start Date Job 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- [employer] Not on file Not on file Not on file documented as of this encounter Plan of Treatment Upcoming Encounters Date Type Department Care Team (Late st Contact Info) Description 06/30/2025 Ancillary Procedure [address] [phone] Magdalena Fry MD [address] [place] [address] [phone] 10/02/2025 Ancillary Procedure [address] [phone] Magdalena Fry MD [address] [place] [address] [phone] documented as of this encounter Visit Diagnoses Not on filedocumented in this encounter Care Teams Smasher Hand Relationship Specialty Start Date End Date Alex Rao MD PCP - General Internal Medicine 09/19/19 Alex Rao MD [address] [facility] [place] [address] Assigned PCP 02/26/20 03/20/21 Nate Leong MD [address] [address] Assigned Surgical Provider 08/17/20 11/07/22 Sharri Hdez MD [address] [facility] [address] [place], [place] 678415 Assigned Endocrinology Provider 12/16/20 03/16/24 Alex Rao MD [address] [facility] [place], [place] 242351 Assigned PCP 03/21/21 Alex Rao MD [address] [facility] [place], [place] 513[address] Referring Physician Internal Medicine 04/02/22 Russell Agosto MD 420 [facility] [address] [place], [place] 6207[address] Neurology 04/02/22 Magdalena Fry MD [address] [facility] [address] [place], [place] 149365 Assigned Heart and Vascular Provider 04/26/22 02/15/24 Doris Chaney [facility] [address] [phone] Pharmacist Pharmacist 07/21/22 Drois Chaney [facility] [address] [phone] Assigned MTM Pharmacist 07/26/2202/14 [place] [address] [phone] Nephrology 05/14/23 documented as of this encounter
--- OUTSIDE RECORDS SUMMARY | 2025-04-22 10:07 | XMS_ITS | Encounter Summary ---
Author Organization [facility] Address Formerly [facility] [place] [address] Care Team Providers Care Javascript Developer Name Role Phone Alex Rao MD Primary Care Provider [phone] aNte Leong MD Unavailable [phone] Sharri Hdez MD Unavailable Alex Rao MD Unavailable [phone] Alex Rao MD Unavailable [phone] Russell Agosto MD Unavailable [phone] Magdalena Fry MD Unavailable Doris Chaney [facility] Unavailable [phone] Doris Chaney [facility] Unavailable Canelo Kelley MD Unavailable Encounter Details Date Type Department Care Team (Latest Contact Info) Description 01/28/2022 [facility] Medical Advice [facility] [address] [address] Orion Stark, [address] [address] Lumbar radiculopathy (Primary Dx) Social History Tobacco Use Types Packs/Day Years [...] AM CDT Legal Sex Male 4:10 AM TRANSPORTATION DRIVER Gender Identity Male 11/22/2018 10:40 AM TRANSPORTATION DRIVER Sexual Orientation Straight 11/22/2018 10 :40 AM TRANSPORTATION DRIVER Occupation Industry Job Start Date Job 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 He does not want to wait till end of february for epidural [place]. He requested his order be sent to [facility] radiology. Order was faxed. Rehana guardado Procedure Director Of Market Analysis Orthopedics, Podiatry, Sports Medicine, ENT/Eye Specialties [facility] [phone] documented in this encounter Plan of Treatment Upcoming Encounters Date Type Department Care Team (Late st Contact Info) Description 06/30/2025 Ancillary Procedure [address] [address] Magdalena Fry MD [address] [place] [address] 404365 10/02/2025 Ancillary Procedure [address] [address] Magdalena Fry MD [address] [place] [address] [phone] documented as of this encounter Visit Diagnoses Diagnosis Lumbar radiculopathy- Primary Thoracic or lumbosacral neuritis or radiculitis, unspecified documented in this encounter Care Teams Javascript Developer Relationship Specialty Start Date End Date Alex Rao MD PCP - General Internal Medicine 09/19/19 Nate Leong MD [address] 754055 Assigned Surgical Provider 08/17/20 11/07/22 Sharri Hdez MD [address] 702505 Assigned Endocrinology Provider 12/16/20 03/16/24 Alex Rao MD [address] [place], [place] 352841 Assigned PCP 03/21/21 Alex Rao MD [address] [place], [place] 094[address] Referring Physician Internal Medicine 04/02/22 Russell Agosto MD 420 [facility] 486 [place], [place] 249755 Neurology 04/02/22 Magdalena Fry MD [address] [facility] 486 [place], [place] 733035 Assigned Heart and Vascular Provider 04/26/22 02/15/24 Doris Chaney [facility] [address] [place] [phone] Pharmacist Pharmacist 07/21/22 Doris Chaney, [facility] [address] [address] Assigned MTM Pharmacist 07/26/2202/14 [place] [address] [phone] Nephrology 05/14/23 documented as of this encounter
--- OUTSIDE RECORDS SUMMARY | 2025-04-22 10:07 | XMS_ITS | Encounter Summary ---
Author Organization [facility] Address [address] [place] [address] Care Team Providers Care Base Engineer Name Role Phone Alex Rao MD Primary Care Provider [phone] Nate Leong MD Unavailable [phone] Sharri Hdez MD Unavailable [phone] Alex Rao MD Unavailable [phone] Alex Rao MD Unavailable [phone] Russell Agosto MD Unavailable [phone] Magdalena Fry MD Unavailable Doris Chaney [facility] Unavailable Doris Chaney [facility] Unavailable Canelo Kelley MD Unavailable Reason for Visit * Reason Comments Medication Refill Encounter Details Date Type Department Care Team (Late st Contact Info) Description [facility] [address] [address] Alex Rao MD [address] [place] [address] Medication Refill Social History Tobacco Use [...] AM CDT Legal Sex Male 4:10 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 No / Unsure 09/05/2021 7:50 AM FOUNDATION ENGINEER documented as of this encounter Miscellaneous Notes * Telephone Encounter - Adele Rivero RN - 09/10/2021 11:15 AM CST Routing refill request to provider for review/approval because: Requested Prescriptions Pending Prescriptions Disp Refills tamsulosin (FLOMAX) 0.4 MG capsule [Pharmacy Med Name: TAMSULOSIN HCL 0.4MG CAPS] 90 capsule 3 Sig: TAKE ONE CAPSULE BY MOUTH EVERY EVENING Alpha Blockers Failed - 09/07/2021 3:48 AM Failed - Blood pressure under 140/90 in past 12 months BP Readings from Last 3 Encounters: 05/07/21 (!) 149/85 04/10/21 (!) 145/73 03/01/21 122/68 Failed - Patient does not have Tadalafil, Vardenafil, or Sildenafil on their medication list Passed - Recent (12 mo) or future (30 days) visit within the authorizing provider's specialty Patient has had an office visit with the authorizing provider or a provider within the authorizing providers department within the previous 12 mos or has a future within next 30 days. See Patient Info tab in inbasket, or Choose Columns in Meds & Orders section of the refill encounter. Passed - Medication is active on med list Passed - Patient is 18 years of age or older lisinopril (ZESTRIL) 10 MG tablet [Pharmacy Med Name: LISINOPRIL 10MG TABS] 90 tablet 3 Sig: TAKE ONE TABLET BY MOUTH EVERY EVENING DIEGO Inhibitors (Including Combos) Protocol Failed - 09/07/2021 3:48 AM Failed - Blood pressure under 140/90 in past 12 months BP Readings from Last 3 Encounters: 05/07/21 (!) 149/85 04/10/21 (!) 145/73 03/01/21 122/68 Failed - Normal serum potassium on file in past 12 months Recent Labs Lab Test 06/27/20 1012 POTASSIUM 4.4 Passed - Recent (12 mo) or future (30 days) visit within the authorizing provider's specialty Patient has had an office visit with the authorizing provider or a provider within the authorizing providers department within the previous 12 mos or has a future within next 30 days. See Patient Info tab in inbasket, or Choose Columns in Meds & Orders section of the refill encounter. Passed - Medication is active on med list Passed - Patient is age 18 or older Passed - Normal serum creatinine on file in past 12 months Recent Labs Lab Test 09/05/21 0753 08/23/19 0905 08/01/19 1410 CR 0.95 < > -- CREAT -- -- 1.0 < > = values in this interval not displayed. Ok to refill medication if creatinine is low Signed Prescriptions Disp Refills atorvastatin (LIPITOR) 40 MG tablet 90 tablet 1 Sig: TAKE ONE TABLET BY MOUTH EVERY DAY IN THE MORNING Statins Protocol Passed - 09/07/2021 3:48 AM Passed - LDL on file in past 12 months Recent Labs Lab Test 03/22/21 0838 LDL 30 Passed - No abnormal creatine kinase in past 12 months No lab results found. Passed - Recent (12 mo) or future (30 days) visit within the authorizing provider's specialty Patient has had an office visit with the authorizing provider or a provider within the authorizing providers department within the previous 12 mos or has a future within next 30 days. See Patient Info tab in inbasket, or Choose Columns in Meds & Orders section of the refill encounter. Passed - Medication is active on med list Passed - Patient is age 18 or older Adele CASTRO, RN DATION ENGINEER documented in this encounter Plan of Treatment Upcoming Encounters Date Type Department Care Team (Late st Contact Info) Description 06/30/2025 Ancillary Procedure [address] [address] Magdalena Fry MD [address] [place] [address] [phone] 10/02/2025 Ancillary Procedure [address] [address] Magdalena Fry MD [address] [place] [address] documented as of this encounter Visit Diagnoses Diagnosis Hypertrophy of prostate without urinary obstruction Unspecified hyperplasia of prostate without urinary obstruction and other lower urinary tract symptoms (LUTS) Essential hypertension with goal blood pressure less than 140/90 Hyperlipidemia LDL goal <100 Other and unspecified hyperlipidemia documented in this encounter Care Teams Base Engineer Relationship Specialty Start Date End Date Alex Rao MD PCP - General Internal Medicine 09/19/19 Nate Leong MD [address] 408665 Assigned Surgical Provider 08/17/20 11/07/22 Sharri Hdez MD [address] [place] [address] 101 [place] [address] Assigned Endocrinology Provider 12/16/20 03/16/24 Alex Rao MD [address] [place] [address] Assigned PCP 03/21/21 Alex Rao MD [address] [place] [address] Referring Physician Internal Medicine 04/02/22 Russell Agosto MD [address] 236485 Neurology 04/02/22 Magdalena Fry MD [address] 879575 Assigned Heart and Vascular Provider 04/26/22 02/15/24 Doris Chaney [facility] [address] [phone] Pharmacist Pharmacist 07/21/22 Doris Chaney [facility] [address] [phone] Assigned MTM Pharmacist 07/26/2202/14 [place] [address] [address] Nephrology 05/14/23 documented as of this encounter
--- OUTSIDE RECORDS SUMMARY | 2025-04-22 10:07 | XMS_ITS | Encounter Summary ---
Author Organization [facility] Address [address] [place] [address] Care Team Providers Care Reversing Mill Roller Name Role Phone Alex Rao MD Primary Care Provider [phone] Nate Leong MD Unavailable [phone] Sharri Hdez MD Unavailable Alex Rao MD Unavailable [phone] Alex Rao MD Unavailable [phone] Russell Agosto MD Unavailable [phone] Magdalena Fry MD Unavailable Doris Chaney [facility] Unavailable [phone] Doris Chaney [facility] Unavailable [phone] Canelo Kelley MD Unavailable Encounter Details Date Type Department Care Team (Late st Contact Info) Description 01/31/2022 [facility] [address] [place] [address] Sharri Hdez MD [address] [place] [address] 101 [place] [address] Social History Tobacco Use Types [...] AM CDT Legal Sex Male 4:10 AM DEWER Gender Identity Male 11/22/2018 10:40 AM DEWER Sexual Orientation Straight 11/22/2018 10 :40 AM DEWER Occupation Industry Job Start Date Job 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 Harrell - Please advise on lab orders to be drawn for the 02/17/2022 visit. Cathy Sotelo CMA Adult Endocrinology [facility] documented in this encounter Plan of Treatment Upcoming Encounters Date Type Department Care Team (Late st Contact Info) Description 06/30/2025 Ancillary Procedure [address] [address] Magdalena Fry MD [address] [place] [address] 448655 10/02/2025 Ancillary Procedure [address] [phone] Magdalena Fry MD [address] [place] [address] [phone] documented as of this encounter Visit Diagnoses Not on filedocumented in this encounter Care Teams Reversing Mill Roller Relationship Specialty Start Date End Date Alex Rao MD PCP - General Internal Medicine 09/19/19 Nate Leong MD [address] 004595 Assigned Surgical Provider 08/17/20 11/07/22 Sharri Hdez MD [address] [facility] 101 [place] [address] Assigned Endocrinology Provider 12/16/20 03/16/24 Alex Rao MD [address] [facility] [place], [place] [address]20[address] Assigned PCP 03/21/21 Alex Rao MD [address] [facility] [address] [place], [place] [phone] Referring Physician Internal Medicine 04/02/22 Russell Agosto MD 420 [facility] 486 [place], [place] 405[address] Neurology 04/02/22 Magdalena Fry MD [address] [facility] 486 [place], [place] 167085 Assigned Heart and Vascular Provider 04/26/22 02/15/24 Doris Chaney [facility] [address] [address] Pharmacist Pharmacist 07/21/22 Doris Chaney [facility] [address] [phone] Assigned MTM Pharmacist 07/26/2202/14 [place] [address] [phone] Nephrology 05/14/23 documented as of this encounter
--- OUTSIDE RECORDS SUMMARY | 2025-04-22 10:07 | XMS_ITS | Clinical Summary ---
Author Organization [facility] Address [address] [place] [address] Care Team Providers Care Woodworker Helper Name Role Phone John Wilcox MD Unavailable [phone] Mega Allen Primary Care Provider [phone] Allergies Active Allergy Reactions Criticality Noted Date [...] mcg/actuation (ASTELIN) 137 mcg (0.1 %) Nasal [place] nasal spray Instill 2 sprays into EACH [...] diabetes mellitus wit h hyperglycemia, unspecified whether retirement insulin use 02/13/2022 BPH with obstruction/lower urinary [...] Comments Blood Pressure 126/68 12/28/2024 1:45 PM HAIR BOILER OPERATOR Pulse 82 12/28/2024 1:45 PM HAIR BOILER OPERATOR Temperature 36.3 C (97.3 F) 11/22/2024 9:40 AM HAIR BOILER OPERATOR Respiratory Rate 18 11/22/2024 10:30 AM HAIR BOILER OPERATOR Oxygen Saturation 98% 12/28/2024 1:45 PM HAIR BOILER OPERATOR Inhaled Oxygen Concentration - - Weight 114.3 kg (252 lb) 12/28/2024 1:45 PM HAIR BOILER OPERATOR Height 182.9 cm (6') 12/28/2024 1:45 PM HAIR BOILER OPERATOR Body Mass Index 34.18 12/28/2024 1:45 PM HAIR BOILER OPERATOR Plan of Treatment Health Maintenance Due Date Last Done Comments AAA Ultrasound Screening 1950 Eye Exam 1950 Hepatitis C Screening 1950 Depression Assessment (PHQ-2) 1951 RSV Vaccines (1 - Risk 60-74 years 1-dose series) 2010 HgbA1C 09/25/2023 03/26/2023, 05/26, 02/10/2022, Additional history exists Creatinine 06/18/2024 06/18/2023, 08/0 10/2022, 06/19/2022, Additional history exists COVID-19 Vaccine ( season) 2024 07/16/2022, 04/09/2022, 10/26/2021, Additional history exists Influenza Vaccine (Season Ended) 2025 08/13/2023, 10/26/2022, 07/16/2022, Additional history exists Yearly Review of HCD 09/28/2025 09/28/2024, 04/24/2022, 09/16/2019 Medicare Wellness Visit 11/14/2025 11/14/2024, 11/04 Colonoscopy 2032 2022 Adult Tetanus Booster 03/26/2033 03/26/2023 , 01/04/2013, 10/12/2003 Pneumococcal 50+ Years Completed , 10/28/2016, 08/23/2015, Additional history exists Zoster Vaccine Completed 10/26/2022, 05/26, 08/06/2021, Additional history exists Meningococcal B Vaccine Aged Out No l onger eligible based on patient's age to complete this topic Medical Devices Implanted Type Area Signaling Project Engineer Device Identifier Shelf Expiration Date Model / Serial / Lot Fm Hd [facility] 36/+1.5 1365-36-310 - [id number] Implanted:Qt y: 1 on 06/18/2022 by Salvatore Blanton MD at [facility] Head Right: Hip [employer] Neymar [id number] 0 / / Mesh Vntrlght St W Echo Ps 6x8 - [id number] Implanted:Qt y: 1 on 02/23/2013 by Dallas Dejesus MD at [facility] Mesh/pat ch N/A: Abdomen [employer] 12/24/2014 [id number] / / [id number] [place] H J&J Elmntr 1246-03-000 - [id number] Implanted:Qt y: 1 on 06/18/2022 by Salvatore Blanton MD at [facility] Mesh/pat ch Right: Hip [employer]ymar [id number] 02/23/2032 0 / / [id number] Stem Actis High Size 6 - [id number] Implanted:Qt y: 1 on 06/18/2022 by Salvatore Blanton MD at [facility] Stem Right: Hip [employer] [id number] 01/24/2032 1010-09-30 0 / / [id number] Sector Cup W/Gription 56mm - [id number] Implanted:Qt y: 1 on 06/18/2022 by Salvatore Blanton MD at [facility] Total joint Right: Hip [employer] [id number] 03/25/2032 6 / / [id number] Screw J&J 40 1217-40-500 - [id number] Implanted:Qt y: 1 on 06/18/2022 by Salvatore Blanton MD at [facility] Total joint Right: Hip [employer]ar [id number] 12/24/2031 0 / / [id number] Lnr J&J Ntl 36x56 1221-36-056 - [id number] Implanted:Qt y: 1 on 06/18/2022 by Salvatore Blanton MD at [facility] Total joint Right: Hip [employer] [id number] 03/25/2027 6 / / [id number] Procedures Procedure Name Priority Date/Time Associated Diagnosis Comments BASIC METAB PROFILE Routine 06/19/2022 6 :59 AM CDT from Last 3 Months or Most Recently Relevant to Health Maintenance Results * (ABNORMAL) Basic Metabolic Profile (06/19/2022 6:59 AM CDT) Sodium 136 136 - 145 mmol/L DIMENSION EXL ANALYZER 06/19/2022 7:41 AM CDT [facility] Potassium 4.4 3.5 - 5.1 mmol/L DIMENSION EXL ANALYZER 06/19/2022 7:41 AM CDT [facility] Chloride 102 98 - 107 mmol/L DIMENSION EXL ANALYZER 06/19/2022 7:41 AM T [facility] Carbon Dioxide 24 21 - 32 mmol/L DIMENSION EXL ANALYZER 06/19/2022 7:41 AM CDT [facility] BUN (Urea Nitro) 24(H) 7 - 18 mg/dL DIMENSION EXL ANALYZER 06/19/2022 7:41 AM CDT [facility] Creatinine 1.20 0.70 - 1.30 mg/dL DIMENSION EXL ANALYZER 06/19/2022 7:41 AM CDT [facility] Est GFR (CKD-EPI) >60.00 >60.00 mL/min/1. 73m2 DIMENSION EXL ANALYZER 06/19/2022 7:41 AM CDT [facility] Comment:Calculation based on the Chronic Kidney Disease Epidemiology Collaboration (CKD-EPI) equation refit without adjustment for race. Glucose 149(H) 70 - 110 mg/dL DIMENSION EXL ANALYZER 06/19/2022 7:41 AM CDT [facility] Calcium, Serum 8.8 8.5 - 10.1 mg/dL DIMENSION EXL ANALYZER 06/19/2022 7:41 AM T [facility] Anion Gap 10.0 0.0 - 15.0 mmol/L DIMENSION EXL ANALYZER 06/19/2022 7:41 AM T [facility] Blood 06/19/2022 6:59 AM CDT 06/19/2022 7:22 AM CDT No Contreras DO CHEMISTRY ORDERABLE Final Resul t [facility] [address] [place] [address] from Last 3 Months or Most Recently Relevant to Health Maintenance Insurance [facility] MEDICARE ADVANTAGE * Guarantor: Pillo Cardenas Account Type Relation to Patient Date of Phone Billing Address Personal/Family Self [address] [place] [address] [id number] [facility] MEDICARE ADVANTAGE [facility] MEDICARE ADVANTAGE Advance Directives For more information, please contact: [phone] * Full Code (Latest Code Status on File) Date Activated Date Inactivated Comments 06/18/2022 12:47 PM 06/19/2022 6:12 PM Question Answer Comments How was code status determined? [facility] Care Teams Woodworker Helper Relationship Specialty Start Date End Date Mega Allen [address] [place] [address] PCP - General 07/09/24 John Wilcox MD [address] [facility] [place] [address] Neurology 04/25/22
--- OUTSIDE RECORDS SUMMARY | 2025-04-22 10:07 | XMS_ITS | Encounter Summary ---
Author Organization [facility] Address [address] [place] [address] Phone Care Team Providers Care Airway Traffic Controller Name Role Phone Mega Allen MD Primary Care Provider [phone] Reason for Visit * Reason Onset Date Comments Med Refill 04/21/2025 Encounter Details Date Type Department Care Team (Late Contact Info) Description 04/21/2025 Refill [employer] [place] [address] Armida Cardona RN Social History Tobacco Use Types Packs/Day Years Used Date Smoking Tobacco: Former Cigarettes Q uit: 1973 Smokeless Tobacco: Former Quit: 1973 Alcohol Use Standard Drinks/Week Comments Not Currently 0 (1 standard drink = 0.6 oz pur e alcohol) Sex and Gender Information Value Date Recorded Sex Assigned at Not on file Legal Sex Male 6:17 AM MDT Gender Identity Not on file Sexual Orientation Not on file documented as of this encounter Miscellaneous Notes * Telephone Encounter - Armida Cardona RN - 04/21/2025 1:21 PM CDT Pillo is asking for refill of his Jardiance. Rx sent. documented in this encounter Plan of Treatment Upcoming Encounters Date Type Department Care Team (Late Contact Info) Description 07/04/2025 11:00 AM CDT Office Visit [facility] [address] [place] [address] Kennedy Mcnulty MD [address] [facility] [address] [place] [address] documented as of this encounter Visit Diagnoses Not on filedocumented in this encounter Care Teams Airway Traffic Controller Relationship Specialty Start Date End Date Mega Allen MD [address] [place] [address] PCP - General Internal Medicine 12/01/24 documented as of this encounter
--- OUTSIDE RECORDS SUMMARY | 2025-04-22 10:07 | XMS_ITS | Encounter Summary ---
Author Organization [facility] Address [address] [place] [address] Care Team Providers Care Stave Jointer Name Role Phone Alex Rao MD Primary Care Provider [phone] Nate Leong MD Unavailable [phone] Sharri Hdez MD Unavailable Alex Rao MD Unavailable Alex Rao MD Unavailable [phone] Russell Agosto MD Unavailable [phone] Magdalena Fry MD Unavailable Doris Chaney [facility] Unavailable [phone] Doris Chaney [facility] Unavailable Canelo Kelley MD Unavailable Encounter Details Date Type Department Care Team (Late st Contact Info) Description 07/31/2021 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- [employer] Not on file Not on file Not on file documented as of this encounter Plan of Treatment Upcoming Encounters Date Type Department Care Team (Late st Contact Info) Description 06/30/2025 Ancillary Procedure [address] [address] Magdalena Fry MD [address] [place] [address] 10/02/2025 Ancillary Procedure [address] [address] Magdalena Fry MD [address] [place] [address] documented as of this encounter Visit Diagnoses Not on filedocumented in this encounter Care Teams Stave Jointer Relationship Specialty Start Date End Date Alex Rao MD PCP - General Internal Medicine 09/19/19 Nate Leong MD [address] 583375 Assigned Surgical Provider 08/17/20 11/07/22 Sharri Hdez MD [address] [place] [address] Assigned Endocrinology Provider 12/16/20 03/16/24 Alex Rao MD [address] [place] 679771 Assigned PCP 03/21/21 Alex Rao MD [address] 810881 Referring Physician Internal Medicine 04/02/22 Russell Agosto MD [facility] [address] 834905 Neurology 04/02/22 Magdalena Fry MD [address] 853965 Assigned Heart and Vascular Provider 04/26/22 02/15/24 Doris Chaney [facility] [address] [place] [address] Pharmacist Pharmacist 07/21/22 Doris Chaney [facility] [address] [place] [phone] Assigned MTM Pharmacist 07/26/2202/14 [place] [address] [place] [address] Nephrology 05/14/23 documented as of this encounter
--- OUTSIDE RECORDS SUMMARY | 2025-04-22 10:07 | XMS_ITS | Encounter Summary ---
Author Organization [facility] Address [address] [place] [address] Care Team Providers Care Movement Therapist Name Role Phone Antonio Celeste MD Primary Care Provider U nealsharon Bill Bowens PA-C Primary Care Provider + Bill Bowens PA-C Unavailable [phone] Bill Bowens PA-C Unavailable [phone] Alex Rao MD Primary Care Provider [phone] Alex Rao MD Unavailable [phone] Beni Puga MD PhD Unavailable Alex Rao MD Unavailable [phone] Nate Leong MD Unavailable [phone] Sharri Hdez MD Unavailable [phone] Alex Rao MD Unavailable [phone] Alex Rao MD Unavailable [phone] Russell Agosto MD Unavailable [phone] Magdalena Fry MD Unavailable Doris Chaney [facility] Unavailable [phone] Doris Chaney [facility] Unavailable [phone] Canelo Kelley MD Unavailable Encounter Details Date Type Department Care Team (Late st Contact Info) Description 02/23/2008 [facility] Medical Advice [address] [address] Taiwo Yañez Social History Tobacco Use Types Packs/Day Years Used Date Smoking Tobacco: Former Cigarettes Q uit: 02/21/1974 Alcohol Use Standard Drinks/Week Comments Yes 0 (1 standard drink = 0.6 oz pur e alcohol) occasional Sex and Gender Information Value Date Recorded Sex Assigned at Male 07/18/2019 7:43 AM CDT Legal Sex Male 4:10 AM 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 LUMBER GRADER Gender Identity Male 11/22/2018 10:40 AM MILLED LUMBER GRADER Sexual Orientation Straight 11/22/2018 10 :40 AM MILLED LUMBER GRADER Occupation Industry Job Start Date Job 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- [employer] Not on file Not on file Not on file documented as of this encounter Plan of Treatment Upcoming Encounters Date Type Department Care Team (Late st Contact Info) Description 06/30/2025 Ancillary Procedure [address] [address] Magdalena Fry MD [address] [place] [address] 10/02/2025 Ancillary Procedure [address] [address] Magdalena Fry MD [address] [place] [address] documented as of this encounter Visit Diagnoses Not on filedocumented in this encounter Care Teams Movement Therapist Relationship Specialty Start Date End Date Antonio Celeste MD NO INFO AVAILABLE 08/25/2022 PCP - General 03/24/03 02/19/15 Bill Bowens PA-C NO INFO AVAILABLE 08/25/2022 PCP - General Physician Triage Rn 02/20/15 09/18/19 Bill Bowens PA-C [address] [place] [address] PCP - Assigned PCP 01/14/15 12/28/18 Alex Rao MD [address] [place] [address] PCP - General Internal Medicine 09/19/19 Bill Bowens PA-C [address] [facility] [address] Assigned PCP 01/14/15 12/03/19 Alex Rao MD [address] [place] [address] Assigned PCP 12/04/19 02/18/20 Beni Puga MD PhD [address] [place] [address] Assigned PCP 02/19/20 02/25/20 Alex Rao MD [address] [place] [address] Assigned PCP 02/26/20 03/20/21 Nate Leong MD [address] 431615 Assigned Surgical Provider 08/17/20 11/07/22 Sharri Hdez MD [address] [place] [address] 473555 Assigned Endocrinology Provider 12/16/20 03/16/24 Alex Rao MD [address] [place] 149511 Assigned PCP 03/21/21 Alex Rao MD [address] [place] 212171 Referring Physician Internal Medicine 04/02/22 Russell Agosto MD [address] 758045 Neurology 04/02/22 Magdalena Fry MD [address] 953915 Assigned Heart and Vascular Provider 04/26/22 02/15/24 Doris Chaney [facility] [address] [place] [phone] Pharmacist Pharmacist 07/21/22 Doris Chaney [facility] [address] [place] [phone] Assigned MTM Pharmacist 07/26/2202/14 [place] [address] [place] [phone] Nephrology 05/14/23 documented as of this encounter
--- OUTSIDE RECORDS SUMMARY | 2025-04-22 10:07 | XMS_ITS | Encounter Summary ---
Author Organization [facility] Address [facility] [place] [address] Care Team Providers Care Feller Operator Name Role Phone Alex Rao MD Primary Care Provider [phone] Nate Leong MD Unavailable [phone] Sharri Hdez MD Unavailable [phone] Alex Rao MD Unavailable [phone] Alex Rao MD Unavailable [phone] Russell Agosto MD Unavailable [phone] Magdalena Fry MD Unavailable Doris Chaney [facility] Unavailable Doris Chaney [facility] Unavailable Canelo Kelley MD Unavailable Encounter Details Date Type Department Care Team (Latest Contact Info) Description 08/07/2021 [facility] Medical Advice [facility] [address] [address] Orion Stark, [address] [address] Lumbar radiculopathy (Primary Dx) Social [...] AM CDT Legal Sex Male 4:10 AM CLIENT SERVICE PROFESSIONAL Gender Identity Male 11/22/2018 10:40 AM CLIENT SERVICE PROFESSIONAL Sexual Orientation Straight 11/22/2018 10 :40 AM CLIENT SERVICE PROFESSIONAL Occupation Industry Job Start Date Job 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 No / Unsure 08/05/2021 10:01 AM CDT documented as of this encounter Miscellaneous Notes * Telephone Encounter - Rehana Hoyt - 08/13/2021 8:54 AM CDT 08/13 Called and spoke to patient. Patient does not want to wait to have epidural done here sep 24. Order was faxed to [facility]. Rehana guardado Procedure Interactive Project Manager Orthopedics, Podiatry, Sports Medicine, ENT/Eye Specialties [facility] [phone] documented in this encounter Plan of Treatment Upcoming Encounters Date Type Department Care Team (Late st Contact Info) Description 06/30/2025 Ancillary Procedure [address] [place] [address] Magdalena Fry MD [address] [place] [phone] 10/02/2025 Ancillary Procedure [address] [place] [address] Magdalena Fry MD [address] [place] [address] documented as of this encounter Visit Diagnoses Diagnosis Lumbar radiculopathy- Primary Thoracic or lumbosacral neuritis or radiculitis, unspecified documented in this encounter Care Teams Feller Operator Relationship Specialty Start Date End Date Alex Rao MD PCP - General Internal Medicine 09/19/19 Nate Leong MD [address] 296265 Assigned Surgical Provider 08/17/20 11/07/22 Sharri Hdez MD [address] [place] [address] 478605 Assigned Endocrinology Provider 12/16/20 03/16/24 Alex Rao MD [address] [place], [place] 887021 Assigned PCP 03/21/21 Alex Rao MD [address] [place], [place] 761621 Referring Physician Internal Medicine 04/02/22 Russell Agosto MD [address] [place] [address] 486 [place] [address] Neurology 04/02/22 Magdalena Fry MD [address] [place] [address] Assigned Heart and Vascular Provider 04/26/22 02/15/24 Doris Chaney, [facility] [address] [place] [phone] Pharmacist Pharmacist 07/21/22 Doris Chaney [facility] [address] [place] [address] Assigned MTM Pharmacist 07/26/2202/14 [place] [address] [place] [phone] Nephrology 05/14/23 documented as of this encounter
--- OUTSIDE RECORDS SUMMARY | 2025-04-22 10:07 | XMS_ITS | Encounter Summary ---
Author Organization [facility] Address [address] [place] [address] Care Team Providers Care Counter Stacker Name Role Phone Alex Rao MD Primary Care Provider Nate Leong MD Unavailable [phone] Sharri Hdez MD Unavailable [phone] Alex Rao MD Unavailable [phone] Alex Rao MD Unavailable [phone] Russell Agosto MD Unavailable [phone] Magdalena Fry MD Unavailable Doris Chaney [facility] Unavailable [phone] Doris Chaney [facility] Unavailable Canelo Kelley MD Unavailable Encounter Details Date Type Department Care Team (Late st Contact Info) Description 03/06/2022 [facility] [address] [address] Alex Rao MD [address] [place] [address] Social History Tobacco Use Types Packs/Day [...] AM CDT Legal Sex Male 4:10 AM TAXICAB COORDINATOR Gender Identity Male 11/22/2018 10:40 AM TAXICAB COORDINATOR Sexual Orientation Straight 11/22/2018 10 :40 AM TAXICAB COORDINATOR Occupation Industry Job Start Date Job 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 Unable to assess 03/06/2022 12:13 AM CDT documented as of this encounter Miscellaneous Notes * Telephone Encounter - Alex Rao MD - 03/13/2022 7:47 PM CDT Please have patient schedule appointment with me. Either virtual or in person (short visit) * Telephone Encounter - Renetta Ortega RN - 03/06/2022 9:12 AM CDT Please review and advise. Rosangela Ortega RN [facility] documented in this encounter Plan of Treatment Upcoming Encounters Date Type Department Care Team (Late st Contact Info) Description 06/30/2025 Ancillary Procedure [address] [address] Magdalena Fry MD [address] [place] [address] 148785 10/02/2025 Ancillary Procedure [address] [phone] Magdalena Fry MD 9[address] [place], [place] 520925 documented as of this encounter Visit Diagnoses Not on filedocumented in this encounter Care Teams Counter Stacker Relationship Specialty Start Date End Date Alex Rao MD PCP - General Internal Medicine 09/19/19 Nate Leong MD [address] 288035 Assigned Surgical Provider 08/17/20 11/07/22 Sharri Hdez MD [address] [place] [address] 101 [place], [place] 467265 Assigned Endocrinology Provider 12/16/20 03/16/24 Alex Rao MD [address] [place], [place] [phone] Assigned PCP 03/21/21 Alex Rao MD [address] [place], [place] 957511 Referring Physician Internal Medicine 04/02/22 Russell Agosto MD [address] [place] [address] 486 [place], [place] 480805 Neurology 04/02/22 Magdalena Fry MD [address] [place] [address] 088825 Assigned Heart and Vascular Provider 04/26/22 02/15/24 Doris Chaney, [facility] [address] [address] Pharmacist Pharmacist 07/21/22 Doris Chaney, [facility] [address] [phone] Assigned MTM Pharmacist 07/26/2202/14 [place] [address] [phone] Nephrology 05/14/23 documented as of this encounter
--- OUTSIDE RECORDS SUMMARY | 2025-04-22 10:07 | XMS_ITS | Encounter Summary ---
Author Organization [facility] Address [address] [place] [address]. [place] [address] Care Team Providers Care Informatica Mdm Developer Name Role Phone Alex Rao MD Primary Care Provider [phone] Alex Rao MD Unavailable [phone] Alex Rao MD Unavailable [phone] Russell Agosto MD Unavailable [phone] Doris Chaney [facility] Unavailable Canelo Kelley MD Unavailable Encounter Details Date Type Department Care Team (Late st Contact Info) Description 06/22/2024 [facility] Medical Advice [facility] [address] [address] Emilee Linares Social History Tobacco [...] AM CDT Legal Sex Male 4:10 AM CNA PCT Gender Identity Male 11/22/2018 10:40 AM CNA PCT Sexual Orientation Straight 11/22/2018 10 :40 AM CNA PCT Occupation Industry Job Start Date Job 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- [employer] Not on file Not on file Not on file documented as of this encounter Plan of Treatment Upcoming Encounters Date Type Department Care Team (Late st Contact Info) Description 06/30/2025 Ancillary Procedure [address] [phone] Magdalena Fry MD [address] [place] [address] [phone] 10/02/2025 Ancillary Procedure [address] [phone] Magdalena Fry MD [address] [place] [address] [phone] documented as of this encounter Visit Diagnoses Not on filedocumented in this encounter Additional Health Concerns Assessment Noted Time PHQ-9 Depression Total Score: 9 06/10/20 22 11:44 AM CDT documented as of this encounter Care Teams Informatica Mdm Developer Relationship Specialty Start Date End Date Alex Rao MD PCP - General Internal Medicine 09/19/19 Alex Rao MD [address] [place] [address] Assigned PCP 03/21/21 Alex Rao MD [address] [place] [address] Referring Physician Internal Medicine 04/02/22 Russell Agosto MD [address] [place] [address] 342495 Neurology 04/02/22 Doris Chaney, [facility] [address] [place] [address] Pharmacist Pharmacist 07/21/22 [place] [address] [phone] Nephrology 05/14/23 documented as of this encounter
--- OUTSIDE RECORDS SUMMARY | 2025-04-22 10:07 | XMS_ITS | Clinical Summary ---
Author Organization [facility] Address [address] [place] [address] Phone Care Team Providers Care Development Chemist Name Role Phone Mega Allen MD Primary Care Provider [phone] Allergies Active Allergy Reactions Criticality Noted Date Comments Cat Dander Cough,Swelling 04/18/2011 Cat and Dog dander Sucrose Unknown 12/10/2020 Sulfa Antibiotics Rash Medium 02/22/2004 Medications lactobacillus (CULTURELLE) capsule Take 1 capsule by mouth in the morning. Active tamsulosin (FLOMAX) 0.4 MG 24 hr capsule Take 0.8 mg by mouth 1 (one) time each day Active pantoprazole (PROTONIX) 40 MG EC tablet Take 1 tablet (40 mg total) by mouth 1 (one) time each day before breakfast 90 tablet 1 3 Active Semaglutide (OZEMPIC, 1 MG/DOSE, SC) Inject 1 mg under the skin 1 (one) time per week Active coenzyme Q-10 100 MG capsule Take 100 mg by mouth 1 (one) time each day Active rosuvastatin (CRESTOR) 10 MG tablet Take 10 mg by mouth 1 (one) time each day Active fluticasone (FLONASE) 50 MCG/ACT nasal spray Administer 2 sprays into each nostril every night Shake gently. Before first use, prime pump. After use, clean tip and replace cap. Active azelastine (ASTELIN) 0.1 % nasal spray Administer 2 sprays into each nostril 1 (one) time each day in the morning Use in each nostril as directed Active Cyanocobalamin (Vitamin B-12 ER) 1500 MCG tablet controlled-rele ase Take 2 tablets by mouth 1 (one) time each day Active levocetirizine (XYZAL) 5 MG tablet Take 5 mg by mouth 1 (one) time each day in the evening 5 Active tadalafil (CIALIS) 5 MG tablet Take 5 mg by mouth 1 (one) time each day 4 Active testosterone cypionate (DEPO-TESTOTERO NE) 200 MG/ML injection Inject 200 mg into the shoulder, thigh, or buttocks every 14 (fourteen) days 5 Active sodium bicarbonate 650 MG tablet Take 2 tablets (1,300 mg total) by mouth in the morning and 2 tablets (1,300 mg total) in the evening. 360 tablet 1 5 Active lisinopril (PRINIVIL) 10 MG tablet TAKE ONE TABLET BY MOUTH EVERY MORNING 90 tablet 2 5 Active Empagliflozin (Jardiance) 10 MG tablet Take 1 tablet by mouth 1 (one) time each day 90 tablet 3 5 Active Empagliflozin (Jardiance) 10 MG tablet Take 1 tablet by mouth 1 (one) time each day 90 tablet 5 04/21/20 25 Discontin ued(Reord er) Active Problems Problem Noted Date Diagnosed Date Urinary tract infectious disease 12/26/2024 Acute renal failure syndrome 06/19/2023 Tubulo-interstitial nephritis 06/19/2023 Diabetes mellitus 06/19/2023 Essential (primary) hypertension 06/19/2023 Anemia in chronic kidney disease 06/19/2023 Encounters Date Type Department Care Team Description 04/21/2025 Refill [facility] [address] [place] [address] Armida Cardona RN 01/24/2025 Refill [facility] [address] [place] [address] Kennedy Mcnulty MD from Last 3 Months Immunizations Immunization Administration Dates Next Due Fluzone High-Dose 07/16/2022, 1,06/22/2020,08/23,08/05/2018,10/22/2017,10/02/2016 ,08/23/2015 H1N1 All Forms 10/23/2009 Hep A, Unspecified 04/16/2004,10/12/2003 Hepatitis A 04/16/2004,10/12/2003 Influenza (IM) Preservative Free 08/20/2012 Influenza LAIV (Nasal) 08/13/2023 Influenza Recombinant Terri valent Injectable Preservative Free 08/07/2014,07/18/2013 Influenza Split High Dose Pr eservative Free IM 08/06/2021,06/22/2020,08/23/2019,08/05,10/22/2017,10/02/2016,08/23/2015 Influenza TIV (IM) 07/18/2013, 1,08/13/2010,08/14,08/30/2008,08/26/2007,09/10/2006 ,08/29/2005,09/12/2004,09/02/2002,08/26,09/08/2000,08/30/1999 Influenza, Injectable, Quadrivalent 08/20/2012 Influenza, Injectable, Quadr ivalent, Preservative Free 07/16/2022,08/23/2019,08/05/2018,10/22,10/02/2016,08/23/2015,08/07/2014 ,07/18/2013,08/20/2012,08/19/2011,07/26,10/23/2009,08/14/2009, 8,08/26/2007,09/10/2006,08/29/2005,,09/12/2003,09/02/2002,09/09/20,09/08/2000,08/30/1999,08/09/1997, Influenza, Unspecified 10/26/2022,08/09/1997, Pfizer Sars-cov-2 Vaccination 07/16/2022 Pneumococcal Conjugate 13-Valent 08/23/2015 Pneumococcal Polysaccharide 10/26/2022, 7,01/05/2003 Sars-cov-2, Unspecified 04/09/2022,10/26,02/06/2021,12/06 TD Preservative Free 10/12/2003 Td 10/12/2003 Tdap 03/26/2023,01/04/2013 Typhoid Inactivated 05/04/2019 Zoster 10/26/2022,07/18/2013 Zoster Recombinant 06/12/2022,08/06/2021 Family History Medical History Relation Comments defects Daughter Cancer Father Hearing loss Mother Heart disease Mother No Known Problems Sister No Known Problems Son Relation Status Comments Daughter Father Mother Sister Son Social History Tobacco Use Types Packs/Day Years Used Date Smoking Tobacco: Former Cigarettes Q uit: 1973 Smokeless Tobacco: Former Quit: 1973 Tobacco Cessation:Counseling Given: No Alcohol Use Standard Drinks/Week Comments Not Currently 0 (1 standard drink = 0.6 oz pur e alcohol) Sex and Gender Information Value Date Recorded Sex Assigned at Not on file Legal Sex Male 6:17 AM MDT Gender Identity Not on file Sexual Orientation Not on file Last Filed Vital Signs Vital Sign Reading Time Taken Comments Blood Pressure 159/77 11/29/2024 10:46 AM TEACHING SUPERVISOR Pulse 69 11/29/2024 10:46 AM TEACHING SUPERVISOR Temperature 36.8 C (98.2 F) 11/29/2024 10:46 AM TEACHING SUPERVISOR Respiratory Rate 12 03/30/2024 10:25 AM CDT Oxygen Saturation 97% 03/30/2024 10:25 AM CDT Inhaled Oxygen Concentration - - Weight 113 kg (248 lb 3.2 oz) 11/29/2024 10:46 A M TEACHING SUPERVISOR Height 182.9 cm (6') 03/30/2024 10:25 AM CDT Body Mass Index 33.66 03/30/2024 10:25 AM CDT Plan of Treatment Upcoming Encounters Date Type Department Care Team (Late st Contact Info) Description 07/04/2025 11:00 AM CDT [facility] [address] [facility] [address] [place], [place] [address] Kennedy Mcnulty MD [address] [facility] [address] [place], [place] [address] Health Maintenance Due Date Last Done Comments Diabetic Foot Exam 1960 Ophthalmology Exam 1960 COVID-19 Vaccine (2023-2 5 season) 2024 07/16/2022, 04/09/2022, 10/26/2021, Additional history exists Influenza Vaccine (Season Ended) 2025 08/13/2023, 10/26/2022, 07/16/2022, Additional history exists Pneumococcal PPSV23/PCV13 65 + Years / High and Highest Risk Completed 10/26/2022, 10/28/2016, 08/23/2015, Additional history exists Insurance PM [employer]URANCE Care Teams Development Chemist Relationship Specialty Start Date End Date Mega Allen MD [address] [place] [address] PCP - General Internal Medicine 12/01/24
--- OUTSIDE RECORDS SUMMARY | 2025-04-22 10:07 | XMS_ITS | Clinical Summary ---
Author Organization [id number] Address [address] [address] Phone Care Team Providers Care Driftman Name Role Phone Unavailable Primary Care Provider Unavailabl e Social History Tobacco Use Types Packs/Day Years Used Date Smoking Tobacco: Never Assessed Sex and Gender Information Value Date Recorded Sex Assigned at Not on file Legal Sex Male 12:10 PM CDT Gender Identity Not on file Sexual Orientation Not on file Plan of Treatment Health Maintenance Due Date Last Done Comments CT Colonography 1950 Cologuard 1950 Colonoscopy 1950 Colorectal Cancer Screening 1950 FIT/FOBT 1950 Sigmoidoscopy 1950 PERTUSSIS (Standing Order) 1969 TETANUS (Standing Order) 1969 Pneumococcal Vaccine: 50+ yr s (Standing Order) (1 of 1 - PCV) 2000 Shingrix (Zoster recombinant ) vaccine (Standing Order) (1 of 2) 2000 COVID-19 Vaccine (2023-2 5 season) 2024 RSV Vaccination (60+ yrs) (Abrysvo/Arexvy) (1 - 1-dose 75+ series) 2025 HPV Vaccine (Standing Order) Aged Out No longer eligible based on patient's age to complete this topic Hepatitis B Vaccine (Standin g Order) Aged Out No longer eligible b ased on patient's age to complete this topic Insurance BLUE CROSS MEDICARE ADVANTAGE CORE
--- OUTSIDE RECORDS SUMMARY | 2025-04-22 10:07 | XMS_ITS | Encounter Summary ---
Author Organization [facility] Address [address] [place] [address] Care Team Providers Care Veneer Matcher Name Role Phone Alex Rao MD Primary Care Provider Alex Rao MD Unavailable [phone] Nate Leong MD Unavailable [phone] Sharri Hdez MD Unavailable Alex Rao MD Unavailable [phone] Alex Rao MD Unavailable [phone] Russell Agosto MD Unavailable [phone] Magdalena Fry MD Unavailable Doris Chaney [facility] Unavailable Doris Chaney [facility] Unavailable [phone] Canelo Kelley MD Unavailable Reason for Visit * Reason Comments Medication Refill Encounter Details Date Type Department Care Team (Late st Contact Info) Description 02/28/2021 [facility] [address] [address] Alex Rao MD [address] [place] [address] Medication Refill Social History Tobacco Use [...] AM CDT Legal Sex Male 4:10 AM CHIEF PSYCHOLOGY Gender Identity Male 11/22/2018 10:40 AM CHIEF PSYCHOLOGY Sexual Orientation Straight 11/22/2018 10 :40 AM CHIEF PSYCHOLOGY Occupation Industry Job Start Date Job 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 No / Unsure 03/01/2021 9:12 AM CDT documented as of this encounter Miscellaneous Notes * Telephone Encounter - Christy Harkins RN - 02/28/2021 9:08 AM CDT Next 5 appointments (look out 90 days) March 01, 2021 9:20 AM PHYSICAL with Alex Rao MD [facility] [address] [place] [phone] Routing refill request to provider for review/approval because: Labs not current: hgb a1c Christy CASTRO, RN documented in this encounter Plan of Treatment Upcoming Encounters Date Type Department Care Team (Late st Contact Info) Description 06/30/2025 Ancillary Procedure [address] [place] [address] Magdalena Fry MD [address] [place] [address] [id number] 10/02/2025 Ancillary Procedure [place] [address] [place] [phone] Magdalena Fry MD [address] [place], [place] [id number] documented as of this encounter Visit Diagnoses Diagnosis Controlled type 2 diabetes mellitus without complication, without long-term current use of insulin (H) Essential hypertension with goal blood pressure less than 140/90 documented in this encounter Care Teams Veneer Matcher Relationship Specialty Start Date End Date Alex Rao MD PCP - General Internal Medicine 09/19/19 Alex Rao MD [address] [place], [place] [address] Assigned PCP 02/26/20 03/20/21 Nate Leong MD [address] [address] Assigned Surgical Provider 08/17/20 11/07/22 Sharri Hdez MD [address] [place] [address] [address] [place], [place] [address] Assigned Endocrinology Provider 12/16/20 03/16/24 Alex Rao MD [address] [place] [address] Assigned PCP 03/21/21 Alex Rao MD [address] [place] [address] Referring Physician Internal Medicine 04/02/22 Russell Agosto MD [address] [place] [address] Neurology 04/02/22 Magdalena Fry MD [address] [place] [address] [address] [place] [address] Assigned Heart and Vascular Provider 04/26/22 02/15/[address] [facility] [address] [place] [address] Pharmacist Pharmacist 07/21/[address] [facility] [address] [place] [address] Assigned MTM Pharmacist 07/26/2202/14 [place] [address] [place] [address] Nephrology 05/14/23 documented as of this encounter
--- OUTSIDE RECORDS SUMMARY | 2025-04-22 10:07 | XMS_ITS | Encounter Summary ---
Author Organization [facility] Address [address] [place] [address] Care Team Providers Care Component Lab Tech Name Role Phone Alex Rao MD Primary Care Provider [phone] Nate Leong MD Unavailable [phone] Sharri Hdez MD Unavailable Alex Rao MD Unavailable [phone] Alex Rao MD Unavailable [phone] Russell Agosto MD Unavailable [phone] Magdalena Fry MD Unavailable Doris Chaney [facility] Unavailable [phone] Doris Chaney [facility] Unavailable [phone] Canelo Kelley MD Unavailable Encounter Details Date Type Department Care Team (Late st Contact Info) Description 03/26/2021 [facility] [address] [place] [address] Sharri Hdez MD [address] [place] [address] [address] [place] [address] Social History Tobacco Use Types [...] AM CDT Legal Sex Male 4: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 No / Unsure 03/22/2021 8:35 AM CDT documented as of this encounter Plan of Treatment Upcoming Encounters Date Type Department Care Team (Late st Contact Info) Description 06/30/2025 Ancillary Procedure [address] [address] Magdalena Fry MD [address] [place] [address] 10/02/2025 Ancillary Procedure [address] [address] Magdalena Fry MD [address] [place] [address] documented as of this encounter Visit Diagnoses Not on filedocumented in this encounter Care Teams Component Lab Tech Relationship Specialty Start Date End Date Alex Rao MD PCP - General Internal Medicine 09/19/19 Nate Leong MD [address] [place] [address] [place] [address] Assigned Surgical Provider 08/17/20 11/07/22 Sharri Hdez MD [address] [place] [address] [facility] [address] [place], [place] [address] Assigned Endocrinology Provider 12/16/20 03/16/24 Alex Rao MD [address] [place], [place] [address] Assigned PCP 03/21/21 Alex Rao MD [address] [place] [address] Referring Physician Internal Medicine 04/02/22 Russell Agosto MD [address] [facility] [address] [place], [place] [address] Neurology 04/02/22 Magdalena Fry MD [address] [facility] [address] [place], [place] [address] Assigned Heart and Vascular Provider 04/26/22 02/15/24 Doris Chaney [facility] [address] [place] [address] Pharmacist Pharmacist 07/21/22 Doris Chaney [facility] [address] [place] [address] Assigned MTM Pharmacist 07/26/2202/14 [place] [address] [place] [address] Nephrology 05/14/23 documented as of this encounter
--- OUTSIDE RECORDS SUMMARY | 2025-04-22 10:07 | XMS_ITS | Encounter Summary ---
Author Organization [facility] Address [address] [place] [address] Care Team Providers Care Splitter Operator Name Role Phone Alex Rao MD Primary Care Provider [phone] Nate Leong MD Unavailable [phone] Sharri Hdez MD Unavailable Alex Rao MD Unavailable [phone] Alex Rao MD Unavailable [phone] Russell Agosto MD Unavailable [phone] Magdalena Fry MD Unavailable Doris Chaney [facility] Unavailable Doris Chaney [facility] Unavailable [phone] Canelo Kelley MD Unavailable Encounter Details Date Type Department Care Team (Late st Contact Info) Description 03/31/2022 Clint Avila [address] [address] Alex Rao MD [address] [place] [address] Social History Tobacco Use Types Packs/Day [...] AM CDT Legal Sex Male 4:10 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 Gender Identity Male 11/22/2018 10:40 AM CLAIM INSPECTOR Sexual Orientation Straight 11/22/2018 10 :40 AM CLAIM INSPECTOR Occupation Industry Job Start Date Job End [...] Telephone Encounter - Miky Stark - 03/31/2022 4:14 PM CDT tamsulosin (FLOMAX) 0.4 MG capsule 1 ordered documented in this encounter Plan of Treatment Upcoming Encounters Date Type Department Care Team (Late st Contact Info) Description 06/30/2025 Ancillary Procedure [address] [address] Magdalena Fry MD [address] [place] [address] 10/02/2025 Ancillary Procedure [address] [address] Magdalena Fry MD [address] [place] [address] documented as of this encounter Visit Diagnoses Diagnosis Hypertrophy of prostate without urinary obstruction Unspecified hyperplasia of prostate without urinary obstruction and other lower urinary tract symptoms (LUTS) documented in this encounter Care Teams Splitter Operator Relationship Specialty Start Date End Date Alex Rao MD PCP - General Internal Medicine 09/19/19 Nate Leong MD [address] [address] Assigned Surgical Provider 08/17/20 11/07/22 Sharri Hdez MD [address] [address] Assigned Endocrinology Provider 12/16/20 03/16/24 Alex Rao MD [address] [place] [address] Assigned PCP 03/21/21 Alex Rao MD [address] [place] [address] Referring Physician Internal Medicine 04/02/22 Russell Agosto MD [address] [place] [address] Neurology 04/02/22 Magdalena Fry MD [address] [place] [address] 833315 Assigned Heart and Vascular Provider 04/26/22 02/15/24 Doris Chaney [facility] [address] [place] [address] Pharmacist Pharmacist 07/21/22 Doris Chaney [facility] [address] [place] [address] Assigned MTM Pharmacist 07/26/2202/14 [place] [address] [place] [address] Nephrology 05/14/23 documented as of this encounter
--- OUTSIDE RECORDS SUMMARY | 2025-04-22 10:08 | XMS_ITS | Encounter Summary ---
Author Organization [facility] Address [address] [place] [address] Care Team Providers Care Historiography Professor Name Role Phone Bill Bowens PA-C Primary Care Provider + Bill Bowens PA-C Unavailable [phone] Alex Rao MD Primary Care Provider [phone] Alex Rao MD Unavailable [phone] Beni Puga MD PhD Unavailable Alex Rao MD Unavailable [phone] Nate Leong MD Unavailable [phone] Sharri Hdez MD Unavailable [phone] Alex Rao MD Unavailable [phone] Alex Rao MD Unavailable [phone] Russell Agosto MD Unavailable [phone] Magdalena Fry MD Unavailable Doris Chaney [facility] Unavailable [phone] Doris Chaney [facility] Unavailable [phone] Canelo Kelley MD Unavailable Reason for Visit * Reason Onset Date Comments Medication Refill 01/18/2019 lisinopril (DE INIVIL/ZESTRIL) 10 MG tablet Refill Request 01/18/2019 atorvastatin (LI PITOR) 40 MG tablet Refill Request 01/18/2019 tamsulosin (FLOM AX) 0.4 MG capsule Encounter Details Date Type Department Care Team (Late st Contact Info) Description 01/18/[address] [phone] Bill Bowens PA-C [address] [place] [address] Medication Refill (lisinopril (PRINIVIL/ZESTRIL) 10 MG tablet); Refill Request (atorvastatin (LIPITOR) 40 MG tablet); Refill Request (tamsulosin (FLOMAX) 0.4 MG capsule) Social History Tobacco Use Types Packs/Day Years [...] AM CDT 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 atorvastatin (LIPITOR) 40 MG tablet [Pharmacy Med Name: ATORVASTATIN CALCIUM 40MG TABS] Last Written Prescription Date: 07/02/2018 Last Fill Quantity: 90 tablet, # refills: 1 Last office visit: 11/22/2018 with prescribing provider: Christie Bowens Future Office Visit: 90 tablet 1 Sig: TAKE ONE TABLET BY MOUTH EVERY DAY Statins Protocol Passed - 01/18/2019 12:19 PM Passed - LDL on file in past 12 months Recent Labs Lab Test 11/22/18 1050 LDL 45 Passed - No abnormal creatine kinase in past 12 months No lab results found. Passed - Recent (12 mo) or future (30 days) visit within the authorizing provider's specialty Patient had office visit in the last 12 months or has a visit in the next 30 days with authorizing provider or within the authorizing provider's specialty. See Patient Info tab in inbasket, or Choose Columns in Meds & Orders section of the refill encounter. Passed - Medication is active on med list Passed - Patient is age 18 or older ??? lisinopril (PRINIVIL/ZESTRIL) 10 MG tablet [Pharmacy Med Name: LISINOPRIL 10MG TABS] Last Written Prescription Date: 07/02/2018 Last Fill Quantity: 90 tablet, # refills: 1 Last office visit: 11/22/2018 with prescribing provider: Christie Bowens Future Office Visit: 90 tablet 1 Sig: TAKE ONE TABLET BY MOUTH EVERY DAY DIEGO Inhibitors (Including Combos) Protocol Passed - 01/18/2019 12:19 PM Passed - Blood pressure under 140/90 in past 12 months BP Readings from Last 3 Encounters: 11/22/18 139/70 06/24/18 155/68 04/09/18 124/62 Passed - Recent (12 mo) or future (30 days) visit within the authorizing provider's specialty Patient had office visit in the last 12 months or has a visit in the next 30 days with authorizing provider or within the authorizing provider's specialty. See Patient Info tab in inbasket, or Choose Columns in Meds & Orders section of the refill encounter. Passed - Medication is active on med list Passed - Patient is age 18 or older Passed - Normal serum creatinine on file in past 12 months Recent Labs Lab Test 11/22/18 1050 04/21/18 0930 CR 0.79 -- CREAT -- 0.7 Passed - Normal serum potassium on file in past 12 months Recent Labs Lab Test 11/22/18 1050 POTASSIUM 4.5 ??? tamsulosin (FLOMAX) 0.4 MG capsule [Pharmacy Med Name: TAMSULOSIN HCL 0.4MG CAPS] Last Written Prescription Date: 07/02/2018 Last Fill Quantity: 90 capsule, # refills: 1 Last office visit: 11/22/2018 with prescribing provider: Christie Bowens Future Office Visit: 90 capsule 1 Sig: TAKE ONE CAPSULE BY MOUTH EVERY DAY Alpha Blockers Passed - 01/18/2019 12:19 PM Passed - Blood pressure under 140/90 in past 12 months BP Readings from Last 3 Encounters: 11/22/18 139/70 06/24/18 155/68 04/09/18 124/62 Passed - Recent (12 mo) or future (30 days) visit within the authorizing provider's specialty Patient had office visit in the last 12 months or has a visit in the next 30 days with authorizing provider or within the authorizing provider's specialty. See Patient Info tab in inbasket, or Choose Columns in Meds & Orders section of the refill encounter. Passed - Patient does not have Tadalafil, Vardenafil, or Sildenafil on their medication list Passed - Medication is active on med list Passed - Patient is 18 years of age or older documented in this encounter Plan of Treatment Upcoming Encounters Date Type Department Care Team (Late st Contact Info) Description 06/30/2025 Ancillary Procedure [address] [address] Magdalena Fry MD [address] [place] [address] [phone] 10/02/2025 Ancillary Procedure [address] [address] Magdalena Fry MD [address] [place] [address] [phone] documented as of this encounter Visit Diagnoses Diagnosis Hyperlipidemia LDL goal <100 Other and unspecified hyperlipidemia Essential hypertension with goal blood pressure less than 140/90 Hypertrophy of prostate without urinary obstruction Unspecified hyperplasia of prostate without urinary obstruction and other lower urinary tract symptoms (LUTS) documented in this encounter Care Teams Historiography Professor Relationship Specialty Start Date End Date Bill Bowens PA-C PCP - General Physician House Carpenter 02/20/15 09/18/19 Alex Rao MD [address] [address] PCP - General Internal Medicine 09/19/19 Bill Bowens PA-C [address] [address] Assigned PCP 01/14/15 12/03/19 Alex Rao MD [address] [place] [address] Assigned PCP 12/04/19 02/18/20 Beni Puga MD PhD [address] [place] [address] Assigned PCP 02/19/20 02/25/20 Alex Rao MD [address] [place] [address] Assigned PCP 02/26/20 03/20/21 Nate Leong MD [address] [address] Assigned Surgical Provider 08/17/20 11/07/22 Sharri Hdez MD [address] [place] [address] 576805 Assigned Endocrinology Provider 12/16/20 03/16/24 Alex Rao MD [address] [place] [address] Assigned PCP 03/21/21 Alex Rao MD [address] [facility] [address] [address] Referring Physician Internal Medicine 04/02/22 Russell Agosto MD [address] [phone] Neurology 04/02/22 Magdalena Fry MD [address] 152085 Assigned Heart and Vascular Provider 04/26/22 02/15/24 Doris Chaney [facility] [address] [phone] Pharmacist Pharmacist 07/21/22 Doris Chaney [facility] [address] [phone] Assigned MTM Pharmacist 07/26/2202/14 [place] [address] [phone] Nephrology 05/14/23 documented as of this encounter
--- OUTSIDE RECORDS SUMMARY | 2025-04-22 10:08 | XMS_ITS | Encounter Summary ---
Author Organization [place] Address [facility] [place] [address] Care Team Providers Care Wheel Roller Name Role Phone Alex Rao MD Primary Care Provider [phone] Nate Leong MD Unavailable [phone] Sharri Hdez MD Unavailable [phone] Alex Rao MD Unavailable [phone] Alex Rao MD Unavailable [phone] Russell Agosto MD Unavailable [phone] Magdalena Fry MD Unavailable Doris Chaney [facility] Unavailable Doris Chaney [facility] Unavailable Canelo Kelley MD Unavailable Encounter Details Date Type Department Care Team (Late st Contact Info) Description 09/15/2022 [facility] [address] [place] [address] Doris Chaney, [facility] [address] [place] [address] Social History Tobacco Use Types Packs/Day Years Used Date Smoking Tobacco: Former Cigarettes 0.5 3 0 02/21/1971 - 02/21/1974 Pipe Smokeless Tobacco: Former Alcohol Use Standard Drinks/Week Comments Not Currently 0 (1 standard drink = 0.6 oz pur e alcohol) 3 drinks/week PHQ-2 Answer Date Recorded PHQ-2 Score 5 06/12/2022 Sex and Gender Information Value Date Recorded Sex Assigned at Male 07/18/2019 7:43 AM CDT Legal Sex Male 4:10 AM PRODUCT INTRODUCTION MANAGER Gender Identity Male 11/22/2018 10:40 AM PRODUCT INTRODUCTION MANAGER Sexual Orientation Straight 11/22/2018 10 :40 AM PRODUCT INTRODUCTION MANAGER Occupation Industry Job Start Date Job 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 No / Unsure 09/10/2022 9:31 AM PRODUCT INTRODUCTION MANAGER documented as of this encounter Plan of Treatment Upcoming Encounters Date Type Department Care Team (Late st Contact Info) Description 06/30/2025 Ancillary Procedure [address] [address] Magdalena Fry MD [address] [place] [address] 000845 10/02/2025 Ancillary Procedure [address] [address] Magdalena Fry MD [address] [place] [address] [phone] documented as of this encounter Visit Diagnoses Not on filedocumented in this encounter Additional Health Concerns Assessment Noted Time PHQ-9 Depression Total Score: 9 06/10/20 22 11:44 AM CDT documented as of this encounter Care Teams Wheel Roller Relationship Specialty Start Date End Date Alex Rao MD PCP - General Internal Medicine 09/19/19 Nate Leong MD [address] [place] [address] Assigned Surgical Provider 08/17/20 11/07/22 Sharri Hdez MD [address] [facility] [address] [place] [address] Assigned Endocrinology Provider 12/16/20 03/16/24 Alex Rao MD [address] [place], [place] 6055[address] Assigned PCP 03/21/21 Alex Rao MD [address] [place], [place] 149241 Referring Physician Internal Medicine 04/02/22 Russell Agosto MD 420 [facility] [address] [place], [place] 883615 Neurology 04/02/22 Magdalena Fry MD [address] [facility] [address] [place], [place] 552215 Assigned Heart and Vascular Provider 04/26/22 02/15/24 Doris Chaney [facility] [address] [phone] Pharmacist Pharmacist 07/21/22 Doris Chaney [facility] [address] [address] Assigned MTM Pharmacist 07/26/2202/14 [place] [address] [phone] Nephrology 05/14/23 documented as of this encounter
--- OUTSIDE RECORDS SUMMARY | 2025-04-22 10:08 | XMS_ITS | Encounter Summary ---
Author Organization [facility] Address [address] [place] [address] Care Team Providers Care Market Master Name Role Phone Antonio Celeste MD Primary Care Provider U nealsharon Bill Bowens PA-C Primary Care Provider + Bill Bowens PA-C Unavailable [phone] Bill Bowens PA-C Unavailable [phone] Alex Rao MD Primary Care Provider [phone] Alex Rao MD Unavailable Beni Puga MD PhD Unavailable Alex Rao MD Unavailable [phone] Nate Leong MD Unavailable [phone] Sharri Hdez MD Unavailable [phone] Alex Rao MD Unavailable [phone] Alex Rao MD Unavailable [phone] Russell Agosto MD Unavailable [phone] Magdalena Fry MD Unavailable Doris Chaney [facility] Unavailable [phone] Doris Chaney [facility] Unavailable [phone] Canelo Kelley MD Unavailable Encounter Details Date Type Department Care Team (Late st Contact Info) Description 05/05/2011 MyC Medical Advice [address] [address] Taiwo Yañez Social History Tobacco Use Types Packs/Day Years Used Date Smoking Tobacco: Former Cigarettes 2 3 0 02/21/1971 - 02/21/1974 Pipe Smokeless Tobacco: Former Chew Alcohol Use Standard Drinks/Week Comments Yes 0 (1 standard drink = 0.6 oz pur e alcohol) 2-12 beers per weekends Sex and Gender Information Value Date Recorded Sex Assigned at Male 07/18/2019 7:43 AM CDT Legal Sex Male 4:10 AM 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 Gender Identity Male 11/22/2018 10:40 AM 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 Sexual Orientation Straight 11/22/2018 10 :40 AM 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 Occupation Industry Job Start Date Job 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- [employer] Not on file Not on file Not on file documented as of this encounter Plan of Treatment Upcoming Encounters Date Type Department Care Team (Late st Contact Info) Description 06/30/2025 Ancillary Procedure [address] [address] Magdalena Fry MD [address] [place] [address] 10/02/2025 Ancillary Procedure [address] [phone] Magdalena Fry MD [address] [place] [address] [phone] documented as of this encounter Visit Diagnoses Not on filedocumented in this encounter Care Teams Market Master Relationship Specialty Start Date End Date Antonio Celeste MD NO INFO AVAILABLE 08/25/2022 PCP - General 03/24/03 02/19/15 Bill Bowens PA-C NO INFO AVAILABLE 08/25/2022 PCP - General Physician Tax Technician 02/20/15 09/18/19 Bill Bowens PA-C [address] [address] PCP - Assigned PCP 01/14/15 12/28/18 Alex Rao MD [address] [address] PCP - General Internal Medicine 09/19/19 Bill Bowens PA-C [address] [address] Assigned PCP 01/14/15 12/03/19 Alex Rao MD [address] [place] [address] Assigned PCP 12/04/19 02/18/20 Beni Puga MD PhD [address] [facility] [place] [address] Assigned PCP 02/19/20 02/25/20 Alex Rao MD [address] [place] [address] Assigned PCP 02/26/20 03/20/21 Nate Leong MD [address] [place] [address] Assigned Surgical Provider 08/17/20 11/07/22 Sharri Hdez MD 420 [facility] 101 [place] [address] Assigned Endocrinology Provider 12/16/20 03/16/24 Alex Rao MD [address] [facility] [address] Assigned PCP 03/21/21 Alex Rao MD [address] [facility] [address] Referring Physician Internal Medicine 04/02/22 Russell Agosto MD 420 [facility] [address] [place] [address] Neurology 04/02/22 Magdalena Fry MD [address] [place] [address] Assigned Heart and Vascular Provider 04/26/22 02/15/24 Doris Chaney [facility] [address] [phone] Pharmacist Pharmacist 07/21/22 Doris Chaney [facility] [address] [phone] Assigned MTM Pharmacist 07/26/2202/14 [place] [address] [phone] Nephrology 05/14/23 documented as of this encounter
--- OUTSIDE RECORDS SUMMARY | 2025-04-22 10:08 | XMS_ITS | Encounter Summary ---
Author Organization [facility] Address [address] [place] [address] Care Team Providers Care J2Ee Application Developer Name Role Phone Antonio Celeste MD Primary Care Provider U nealsharon Bill Bowens PA-C Primary Care Provider + Bill Bowens PA-C Unavailable [phone] Bill Bowens PA-C Unavailable [phone] Alex Rao MD Primary Care Provider [phone] Alex Rao MD Unavailable [phone] Beni Puga MD PhD Unavailable Alex Rao MD Unavailable [phone] Nate Leong MD Unavailable [phone] Sharri Hdez MD Unavailable [phone] Alex Rao MD Unavailable Alex Rao MD Unavailable [phone] Russell Agosto MD Unavailable [phone] Magdalena Fry MD Unavailable Doris Chaney [facility] Unavailable [phone] Doris Chaney [facility] Unavailable [phone] Canelo Kelley MD Unavailable Encounter Details Date Type Department Care Team (Late st Contact Info) Description 06/18/2010 [facility] Social History Tobacco Use Types Packs/Day Years Used Date Smoking Tobacco: Former Cigarettes Q uit: 02/21/1974 Alcohol Use Standard Drinks/Week Comments Yes 0 (1 standard drink = 0.6 oz pur e alcohol) occasional Sex and Gender Information Value Date Recorded Sex Assigned at Male 07/18/2019 7:43 AM CDT Legal Sex Male 4:10 AM RENAL CASE MANAGER Gender Identity Male 11/22/2018 10:40 AM RENAL CASE MANAGER Sexual Orientation Straight 11/22/2018 10 :40 AM RENAL CASE MANAGER Occupation Industry Job Start Date Job 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- [employer] Not on file Not on file Not on file documented as of this encounter Plan of Treatment Upcoming Encounters Date Type Department Care Team (Late Contact Info) Description 06/30/2025 Ancillary Procedure [address] [address] Magdalena Fry MD [address] [place] [address] [phone] 10/02/2025 Ancillary Procedure [address] [address] Magdalena Fry MD [address] [place] [address] documented as of this encounter Visit Diagnoses Not on filedocumented in this encounter Care Teams J2Ee Application Developer Relationship Specialty Start Date End Date Antonio Celeste MD NO INFO AVAILABLE 08/25/2022 PCP - General 03/24/03 02/19/15 Bill Bowens PA-C NO INFO AVAILABLE 08/25/2022 PCP - General Physician Plywood Layup Line Core Layer 02/20/15 09/18/19 Bill Bowens PA-C [address] [place] [address] PCP - Assigned PCP 01/14/15 12/28/18 Alex Rao MD [address] [place] [address] PCP - General Internal Medicine 09/19/19 Bill Bowens PA-C [address] [place] [address] Assigned PCP 01/14/15 12/03/19 Alex Rao MD [address] [facility] [place] [address] Assigned PCP 12/04/19 02/18/20 Beni Puga MD PhD [address] [facility] [place] [address] Assigned PCP 02/19/20 02/25/20 Alex Rao MD [address] [facility] [place] [address] Assigned PCP 02/26/20 03/20/21 Nate Leong MD [address] [place], [place] [address] Assigned Surgical Provider 08/17/20 11/07/22 Sharri Hdez MD 420 [facility] 101 [place], [place] [address]47[address] Assigned Endocrinology Provider 12/16/20 03/16/24 Alex Rao MD [address] [place] [address] Assigned PCP 03/21/21 Alex Rao MD [address] [place] [address] Referring Physician Internal Medicine 04/02/22 Russell Agosto MD [address] [address] Neurology 04/02/22 Magdalena Fry MD [address] [address] Assigned Heart and Vascular Provider 04/26/22 02/15/24 Doris Chaney [facility] [address] [phone] Pharmacist Pharmacist 07/21/22 Doris Chaney [facility] [address] [phone] Assigned MTM Pharmacist 07/26/2202/14 [place] [address] [phone] Nephrology 05/14/23 documented as of this encounter
--- OUTSIDE RECORDS SUMMARY | 2025-04-22 10:08 | XMS_ITS | Encounter Summary ---
Author Organization [place] Address [facility] [place] [address] Care Team Providers Care Correctional Agency Director Name Role Phone Alex Rao MD Primary Care Provider [phone] Nate Leong MD Unavailable [phone] Sharri Hdez MD Unavailable Alex Rao MD Unavailable [phone] Alex Rao MD Unavailable [phone] Russell Agosto MD Unavailable [phone] Magdalena Fry MD Unavailable Doris Chaney [facility] Unavailable Doris Chaney [facility] Unavailable Canelo Kelley MD Unavailable Encounter Details Date Type Department Care Team (Late st Contact Info) Description 08/18/2022 [facility] [address] [facility] [address] [place] [address] Doris Chaney, [facility] [address] [place] [address] Social History Tobacco Use Types [...] AM CDT Legal Sex Male 4:10 AM FIRST COAT SANDER Gender Identity Male 11/22/2018 10:40 AM FIRST COAT SANDER Sexual Orientation Straight 11/22/2018 10 :40 AM FIRST COAT SANDER Occupation Industry Job Start Date Job 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 No / Unsure 08/18/2022 7:43 AM CDT documented as of this encounter Plan of Treatment Upcoming Encounters Date Type Department Care Team (Late st Contact Info) Description 06/30/2025 Ancillary Procedure [address] [address] Magdalena Fry MD [address] [place] [address] [phone] 10/02/2025 Ancillary Procedure [address] [address] Magdalena Fry MD [address] [place] [address] [phone] documented as of this encounter Visit Diagnoses Not on filedocumented in this encounter Additional Health Concerns Assessment Noted Time PHQ-9 Depression Total Score: 9 06/10/20 22 11:44 AM CDT documented as of this encounter Care Teams Correctional Agency Director Relationship Specialty Start Date End Date Alex Rao MD PCP - General Internal Medicine 09/19/19 Nate Leong MD [address] [place] [address] Assigned Surgical Provider 08/17/20 11/07/22 Sharri Hdez MD [address] [facility] [address] [place] [address] Assigned Endocrinology Provider 12/16/20 03/16/24 Alex Rao MD [address] [place], [place] [address] Assigned PCP 03/21/21 Alex Rao MD [address] [place], [place] [address] Referring Physician Internal Medicine 04/02/22 Russell Agosto MD 420 [facility] [address] [place], [place] 47[address] Neurology 04/02/22 Magdalena Fry MD 420 [facility] [address] [place], [place] 1547[address] Assigned Heart and Vascular Provider 04/26/22 02/15/24 Doris Chaney [facility] [address] [phone] Pharmacist Pharmacist 07/21/22 Doris Chaney [facility] [address] [phone] Assigned MTM Pharmacist 07/26/2202/14 [place] [address] [phone] Nephrology 05/14/23 documented as of this encounter
--- OUTSIDE RECORDS SUMMARY | 2025-04-22 10:08 | XMS_ITS | Encounter Summary ---
Author Organization [place] Address [address] [place] [address] Care Team Providers Care Degreaser Operator Name Role Phone Bill Bowens PA-C Primary Care Provider + Bill Bowens PA-C Unavailable [phone] Alex Rao MD Primary Care Provider Alex Rao MD Unavailable [phone] Beni Puga MD PhD Unavailable Alex Rao MD Unavailable Nate Leong MD Unavailable [phone] Sharri Hdez MD Unavailable [phone] Alex Rao MD Unavailable [phone] Alex Rao MD Unavailable [phone] Russell Agosto MD Unavailable [phone] Magdalena Fry MD Unavailable Doris Chaney [facility] Unavailable [phone] Doris Chaney [facility] Unavailable [phone] Canelo Kelley MD Unavailable Reason for Visit * Reason Onset Date Comments Medication Refill 06/23/2019 OLIVIA CONTOUR test strip Encounter Details Date Type Department Care Team (Late st Contact Info) Description 06/23/[address] [address] Antonio Celeste MD NO INFO AVAILABLE 08/25/2022 Medication Refill (OLIVIA CONTOUR test strip) Social History Tobacco Use Types Packs/Day Years [...] AM CDT Legal Sex Male 4:10 AM BANKING OFFICER Gender Identity Male 11/22/2018 10:40 AM BANKING OFFICER Sexual Orientation Straight 11/22/2018 10 :40 AM BANKING OFFICER Occupation Industry Job Start Date Job 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 Oksana Muñoz,[facility] * Telephone Encounter - Gabino Kulkarni - 06/23/2019 11:53 AM CDT Requested Prescriptions Pending Prescriptions Disp Refills ??? CONTOUR TEST test strip [Pharmacy Med Name: CONTOUR TEST STRP] Last Written Prescription Date: 03/24/2018 Last Fill Quantity: 150 each, # refills: 2 Last office visit: 11/22/2018 with prescribing provider: Christie Bowens Prescribing Provider's Antonio Celeste MD Future Office Visit: 150 each 0 Sig: TEST ONE TO TWO TIMES DAILY DIRECTED Diabetic Supplies Protocol Passed - 06/23/2019 11:50 AM Passed - Medication is active on med list Passed - Patient is 18 years of age or older Passed - Recent (6 mo) or future (30 days) visit within the authorizing provider's specialty Patient had office visit in the last 6 months or has a visit in the next 30 days with authorizing provider. See Patient Info tab in inbasket, or Choose Columns in Meds & Orders section of therefill encounter. documented in this encounter Plan of Treatment Upcoming Encounters Date Type Department Care Team (Late st Contact Info) Description 06/30/2025 Ancillary Procedure [address] [phone] Magdalena Fry MD [address] [place] [address] [phone] 10/02/2025 Ancillary Procedure [address] [phone] Magdalena rFy MD [address] [place] [address] [phone] documented as of this encounter Visit Diagnoses Diagnosis Type 2 diabetes mellitus, controlled (H) Type II or unspecified type diabetes mellitus without mention of complication, not stated as uncontrolled documented in this encounter Care Teams Degreaser Operator Relationship Specialty Start Date End Date Bill Bowens PA-C PCP - General Physician Manager Change 02/20/15 09/18/19 Alex Rao MD [address] [place] [address] PCP - General Internal Medicine 09/19/19 Bill Bowens PA-C [address] [place] [address] Assigned PCP 01/14/15 12/03/19 Alex Rao MD [address] [place] [address] Assigned PCP 12/04/19 02/18/20 Beni Puga MD PhD [address] [place] [address] Assigned PCP 02/19/20 02/25/20 Alex Rao MD [address] [place] [address] Assigned PCP 02/26/20 03/20/21 Nate Leong MD [address] 398935 Assigned Surgical Provider 08/17/20 11/07/22 Sharri Hdez MD 420 [facility] [address] [place] [address] Assigned Endocrinology Provider 12/16/20 03/16/24 Alex Rao MD [address] [place] [address] Assigned PCP 03/21/21 Alex Rao MD [address] [place] [address] Referring Physician Internal Medicine 04/02/22 Russell Agosto MD 420 [facility] [address] [place] [address] Neurology 04/02/22 Magdalena Fry MD [address] [place] [address] [address] [place] [address] Assigned Heart and Vascular Provider 04/26/22 02/15/24 Doris Chaney [facility] [address] [place] [phone] Pharmacist Pharmacist 07/21/22 Doris Chaney [facility] [address] [phone] Assigned MTM Pharmacist 07/26/2202/14 [place] [address] [place] [place] [phone] Nephrology 05/14/23 documented as of this encounter
--- OUTSIDE RECORDS SUMMARY | 2025-04-22 10:08 | XMS_ITS | Encounter Summary ---
Author Organization [place] Address [address] [place] [address] Care Team Providers Care Bungy Jump Master Name Role Phone Antonio Celeste MD Primary Care Provider U nealsharon Bill Bowens PA-C Primary Care Provider + Bill Bowens PA-C Unavailable [phone] Bill Bowens PA-C Unavailable [phone] Alex Rao MD Primary Care Provider [phone] Alex Rao MD Unavailable [phone] Beni Puga MD PhD Unavailable Alex Rao MD Unavailable [phone] Nate Leong MD Unavailable [phone] Sharri Hdez MD Unavailable [phone] Alex Rao MD Unavailable [phone] Alex Rao MD Unavailable [phone] Russell Agosto MD Unavailable [phone] Magdalena Fry MD Unavailable Doris Chaney [facility] Unavailable [phone] Doris Chaney [facility] Unavailable [phone] Canelo Kelley MD Unavailable Encounter Details Date Type Department Care Team (Late st Contact Info) Description 03/13/2010 [facility]C [facility] Social History Tobacco Use Types Packs/Day Years Used Date Smoking Tobacco: Former Cigarettes Q uit: 02/21/1974 Alcohol Use Standard Drinks/Week Comments Yes 0 (1 standard drink = 0.6 oz pur e alcohol) occasional Sex and Gender Information Value Date Recorded Sex Assigned at Male 07/18/2019 7:43 AM CDT Legal Sex Male 4:10 AM SIGNALMAN Gender Identity Male 11/22/2018 10:40 AM SIGNALMAN Sexual Orientation Straight 11/22/2018 10 :40 AM SIGNALMAN Occupation Industry Job Start Date Job 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- [employer] Not on file Not on file Not on file documented as of this encounter Plan of Treatment Upcoming Encounters Date Type Department Care Team (Late Contact Info) Description 06/30/2025 Ancillary Procedure [address] [phone] Magdalena Fry MD [address] [place] [address] [phone] 10/02/2025 Ancillary Procedure [address] [phone] Magdalena Fry MD [address] [place] [address] documented as of this encounter Visit Diagnoses Not on filedocumented in this encounter Care Teams Bungy Jump Master Relationship Specialty Start Date End Date Antonio Celeste MD NO INFO AVAILABLE 08/25/2022 PCP - General 03/24/03 02/19/15 Bill Bowens PA-C NO INFO AVAILABLE 08/25/2022 PCP - General Physician E Commerce Project Manager 02/20/15 09/18/19 Bill Bowens PA-C [address] [place] [address] PCP - Assigned PCP 01/14/15 12/28/18 Alex Rao MD [address] [place] [address] PCP - General Internal Medicine 09/19/19 Bill Bowens PA-C [address] [place] [address] Assigned PCP 01/14/15 12/03/19 Alex Rao MD [address] [facility] [address] Assigned PCP 12/04/19 02/18/20 Beni Puga MD PhD [address] [facility] [address] Assigned PCP 02/19/20 02/25/20 Alex Rao MD [address] [facility] [address] Assigned PCP 02/26/20 03/20/21 Nate Leong MD [address] [place], [place] 558355 Assigned Surgical Provider 08/17/20 11/07/22 Sharri Hdez MD 420 [facility] 101 [place], [place] 981475 Assigned Endocrinology Provider 12/16/20 03/16/24 Alex Rao MD [address] [place] [address] Assigned PCP 03/21/21 Alex Rao MD [address] [place] [address] Referring Physician Internal Medicine 04/02/22 Russell Agosto MD [address] [address] Neurology 04/02/22 Magdalena Fry MD [address] [address] Assigned Heart and Vascular Provider 04/26/22 02/15/24 Doris Chaney [facility] [address] [place] [phone] Pharmacist Pharmacist 07/21/22 Doris Chaney [facility] [address] [place] [phone] Assigned MTM Pharmacist 07/26/2202/14 [place] [address] [place] [phone] Nephrology 05/14/23 documented as of this encounter
--- OUTSIDE RECORDS SUMMARY | 2025-04-22 10:08 | XMS_ITS | Encounter Summary ---
Author Organization [place] Address [address] [place] [address] Care Team Providers Care Farm Equipment Engine Mechanic Name Role Phone Alex Rao MD Primary Care Provider [phone] Sharri Hdez MD Unavailable [phone] Alex Rao MD Unavailable [phone] Alex Rao MD Unavailable [phone] Russell Agosto MD Unavailable [phone] Magdalena Fry MD Unavailable Doris Chaney [facility] Unavailable [phone] Doris Chaney [facility] Unavailable Canelo Kelley MD Unavailable Encounter Details Date Type Department Care Team (Late st Contact Info) Description 12/01/2022 MyC Medical Advice [address] [address] Caitlin Martinez, CHIEF TELEPHONE OPERATOR Social History Tobacco Use Types Packs/Day Years [...] AM CDT Legal Sex Male 4:10 AM TAR KETTLE RUNNER Gender Identity Male 11/22/2018 10:40 AM TAR KETTLE RUNNER Sexual Orientation Straight 11/22/2018 10 :40 AM TAR KETTLE RUNNER Occupation Industry Job Start Date Job 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 Unable to assess 12/03/2022 5:50 AM TAR KETTLE RUNNER documented as of this encounter Plan of Treatment Upcoming Encounters Date Type Department Care Team (Late st Contact Info) Description 06/30/2025 Ancillary Procedure [address] [address] Magdalena Fry MD [address] [place] [address] 10/02/2025 Ancillary Procedure [address] [address] Magdalena Fry MD [address] [place] [address] [phone] documented as of this encounter Visit Diagnoses Not on filedocumented in this encounter Additional Health Concerns Assessment Noted Time PHQ-9 Depression Total Score: 9 06/10/20 22 11:44 AM CDT documented as of this encounter Care Teams Farm Equipment Engine Mechanic Relationship Specialty Start Date End Date Alex Rao MD PCP - General Internal Medicine 09/19/19 Sharri Hdez MD [address] [place] [address] 101 [place] [address] Assigned Endocrinology Provider 12/16/20 03/16/24 Alex Rao MD [address] [facility] [address] [place] [address] Assigned PCP 03/21/21 Alex Rao MD [address] [place] [address] Referring Physician Internal Medicine 04/02/22 Russell Agosto MD [address] [address] Neurology 04/02/22 Magdalena Fry MD [address] [address] Assigned Heart and Vascular Provider 04/26/22 02/15/24 Doris Chaney [facility] [address] [place] [phone] Pharmacist Pharmacist 07/21/22 Doris Chaney [facility] [address] [place] [phone] Assigned MTM Pharmacist 07/26/2202/14 [place] [address] [place] [phone] Nephrology 05/14/23 documented as of this encounter
--- OUTSIDE RECORDS SUMMARY | 2025-04-22 10:08 | XMS_ITS | Encounter Summary ---
Author Organization [place] Address [address] [place] [address] Care Team Providers Care Yarn Weigher Name Role Phone Antonio Celeste MD Primary Care Provider U nealsharon Bill Bowens PA-C Primary Care Provider + Bill Bowens PA-C Unavailable [phone] Bill Bowens PA-C Unavailable [phone] Alex Rao MD Primary Care Provider [phone] Alex Rao MD Unavailable Beni Puga MD PhD Unavailable Alex Rao MD Unavailable [phone] Nate Leong MD Unavailable [phone] Sharri Hdez MD Unavailable [phone] Alex Rao MD Unavailable Alex Rao MD Unavailable [phone] Russell Agosto MD Unavailable [phone] Magdalena Fry MD Unavailable Doris Chaney [facility] Unavailable [phone] Doris Chaney [facility] Unavailable [phone] Canelo Kelley MD Unavailable Encounter Details Date Type Department Care Team (Late st Contact Info) Description 05/03/2009 MyC Medical [facility] Social History Tobacco Use Types Packs/Day Years Used Date Smoking Tobacco: Former Cigarettes Q uit: 02/21/1974 Alcohol Use Standard Drinks/Week Comments Yes 0 (1 standard drink = 0.6 oz pur e alcohol) occasional Sex and Gender Information Value Date Recorded Sex Assigned at Male 07/18/2019 7:43 AM CDT Legal Sex Male 4:10 AM RADIOLOGY THERAPIST Gender Identity Male 11/22/2018 10:40 AM RADIOLOGY THERAPIST Sexual Orientation Straight 11/22/2018 10 :40 AM RADIOLOGY THERAPIST Occupation Industry Job Start Date Job 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- [employer] Not on file Not on file Not on file documented as of this encounter Plan of Treatment Upcoming Encounters Date Type Department Care Team (Late Contact Info) Description 06/30/2025 Ancillary Procedure [address] [address] Magdalena Fry MD [address] [place] [address] 383955 10/02/2025 Ancillary Procedure [address] [address] Magdalena Fry MD [address] [place] [address] documented as of this encounter Visit Diagnoses Not on filedocumented in this encounter Care Teams Yarn Weigher Relationship Specialty Start Date End Date Antonio Celeste MD NO INFO AVAILABLE 08/25/2022 PCP - General 03/24/03 02/19/15 Bill Bowens PA-C NO INFO AVAILABLE 08/25/2022 PCP - General Physician Esl Tutor 02/20/15 09/18/19 Bill Bowens PA-C [address] [place] [address] PCP - Assigned PCP 01/14/15 12/28/18 Alex Rao MD [address] [place] [address] PCP - General Internal Medicine 09/19/19 Bill Bowens PA-C [address] [place] [address] Assigned PCP 01/14/15 12/03/19 Alex Rao MD [address] [facility] [place] [address] Assigned PCP 12/04/19 02/18/20 Beni Puga MD PhD [address] [facility] [place] [address] Assigned PCP 02/19/20 02/25/20 Alex Rao MD [address] [facility] [place] [address] Assigned PCP 02/26/20 03/20/21 Nate Leong MD [address] [place], [place] 0544[address] Assigned Surgical Provider 08/17/20 11/07/22 Sharri Hdez MD 420 [facility] 101 [place], [place] 815575 Assigned Endocrinology Provider 12/16/20 03/16/24 Alex Rao MD [address] [place] [address] Assigned PCP 03/21/21 Alex Rao MD [address] [place] [address] Referring Physician Internal Medicine 04/02/22 Russell Agosto MD [address] [address] Neurology 04/02/22 Magdalena Fry MD [address] [address] Assigned Heart and Vascular Provider 04/26/22 02/15/24 Doris Chaney [facility] [address] [place] [phone] Pharmacist Pharmacist 07/21/22 Doris Chaney [facility] [address] [place] [phone] Assigned MTM Pharmacist 07/26/2202/14 [place] [address] [place] [phone] Nephrology 05/14/23 documented as of this encounter
--- OUTSIDE RECORDS SUMMARY | 2025-04-22 10:08 | XMS_ITS | Encounter Summary ---
Author Organization [place] Address [address] [place] [address] Care Team Providers Care Survey Operations Director Name Role Phone Antonio Celeste MD Primary Care Provider U nealsharon Bill Bowens PA-C Primary Care Provider + Bill Bowens PA-C Unavailable [phone] Bill Bowens PA-C Unavailable [phone] Alex Rao MD Primary Care Provider [phone] Alex Rao MD Unavailable [phone] Beni Puga MD PhD Unavailable Alex Rao MD Unavailable [phone] Nate Leong MD Unavailable [phone] Sharri Hdez MD Unavailable [phone] Alex Rao MD Unavailable [phone] Alex Rao MD Unavailable [phone] Russell Agosto MD Unavailable [phone] Magdalena Fyr MD Unavailable Doris Chaney [facility] Unavailable [phone] Doris Chaney [facility] Unavailable [phone] Canelo Kelley MD Unavailable Encounter Details Date Type Department Care Team (Late Contact Info) Description 04/04/2011 MyC Medical Advice [address] [address] Taiwo Yañez Social History Tobacco Use Types Packs/Day Years Used Date Smoking Tobacco: Former Cigarettes Q uit: 02/21/1974 Alcohol Use Standard Drinks/Week Comments Yes 0 (1 standard drink = 0.6 oz pure alcohol) occasional; 2-12 beers per weekends Sex and Gender Information Value Date Recorded Sex Assigned at Male 07/18/2019 7:43 AM CDT Legal Sex Male 4:10 AM HUMAN RESOURCE CONSULTANT Gender Identity Male 11/22/2018 10:40 AM HUMAN RESOURCE CONSULTANT Sexual Orientation Straight 11/22/2018 10 :40 AM HUMAN RESOURCE CONSULTANT Occupation Industry Job Start Date Job 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- [employer] Not on file Not on file Not on file documented as of this encounter Plan of Treatment Upcoming Encounters Date Type Department Care Team (Late Contact Info) Description 06/30/2025 Ancillary Procedure [address] [address] Magdalena Fry MD [address] [place] [address] [phone] 10/02/2025 Ancillary Procedure [address] [address] Magdalena Fry MD [address] [place] [address] [phone] documented as of this encounter Visit Diagnoses Not on filedocumented in this encounter Care Teams Survey Operations Director Relationship Specialty Start Date End Date Antonio Celeste MD NO INFO AVAILABLE 08/25/2022 PCP - General 03/24/03 02/19/15 Bill Bowens PA-C NO INFO AVAILABLE 08/25/2022 PCP - General Physician Medical Chief Technician 02/20/15 09/18/19 Bill Bowens PA-C [address] [address] PCP - Assigned PCP 01/14/15 12/28/18 Alex Rao MD [address] [address] PCP - General Internal Medicine 09/19/19 Bill Bowens PA-C [address] [address] Assigned PCP 01/14/15 12/03/19 Alex Rao MD [address] [place] [address] Assigned PCP 12/04/19 02/18/20 Beni Puga MD PhD [address] [address] Assigned PCP 02/19/20 02/25/20 Alex Rao MD [address] [place] [address] Assigned PCP 02/26/20 03/20/21 Nate Leong MD [address] 169235 Assigned Surgical Provider 08/17/20 11/07/22 Sharri Hdez MD [address] [place] [address] Assigned Endocrinology Provider 12/16/20 03/16/24 Alex Rao MD [address] [facility] [place] [address] Assigned PCP 03/21/21 Alex Rao MD [address] [place] [address] Referring Physician Internal Medicine 04/02/22 Russell Agosto MD [address] [address] Neurology 04/02/22 Magdalena Fry MD [address] [address] Assigned Heart and Vascular Provider 04/26/22 02/15/24 Doris Chaney [facility] [address] [phone] Pharmacist Pharmacist 07/21/22 Doris Chaney [facility] [address] [phone] Assigned MTM Pharmacist 07/26/2202/14 [place] [address] [phone] Nephrology 05/14/23 documented as of this encounter
--- OUTSIDE RECORDS SUMMARY | 2025-04-22 10:08 | XMS_ITS | Encounter Summary ---
Author Organization [place] Address [address] [place] [address] Care Team Providers Care Agronomy Manager Name Role Phone Antonio Celeste MD Primary Care Provider U nealsharon Bill Bowens PA-C Primary Care Provider + Bill Bowens PA-C Unavailable [phone] Bill Bowens PA-C Unavailable [phone] Alex Rao MD Primary Care Provider [phone] Alex Rao MD Unavailable [phone] Beni Puga MD PhD Unavailable Alex Rao MD Unavailable [phone] Nate Leong MD Unavailable [phone] Sharri Hdez MD Unavailable [phone] Alex Rao MD Unavailable [phone] Alex Rao MD Unavailable [phone] Russell Agosto MD Unavailable [phone] Magdalena Fry MD Unavailable Doris Chaney [facility] Unavailable [phone] Doris Chaney [facility] Unavailable [phone] Canelo Kelley MD Unavailable Encounter Details Date Type Department Care Team (Late st Contact Info) Description 08/07/2010 MyC Medical [facility]ice [facility] Social History Tobacco Use Types Packs/Day Years Used Date Smoking Tobacco: Former Cigarettes Q uit: 02/21/1974 Alcohol Use Standard Drinks/Week Comments Yes 0 (1 standard drink = 0.6 oz pur e alcohol) occasional Sex and Gender Information Value Date Recorded Sex Assigned at Male 07/18/2019 7:43 AM CDT Legal Sex Male 4:10 AM ADMINISTRATIVE ASSISTANT DATA ENTRY Gender Identity Male 11/22/2018 10:40 AM ADMINISTRATIVE ASSISTANT DATA ENTRY Sexual Orientation Straight 11/22/2018 10 :40 AM ADMINISTRATIVE ASSISTANT DATA ENTRY Occupation Industry Job Start Date Job 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- [employer] Not on file Not on file Not on file documented as of this encounter Plan of Treatment Upcoming Encounters Date Type Department Care Team (Late Contact Info) Description 06/30/2025 Ancillary Procedure [address] [address] Magdalena Fry MD [address] [place] [address]455 10/02/2025 Ancillary Procedure [address] [address] Magdalena Fry MD [address] [place] [address] documented as of this encounter Visit Diagnoses Not on filedocumented in this encounter Care Teams Agronomy Manager Relationship Specialty Start Date End Date Antonio Celeste MD NO INFO AVAILABLE 08/25/2022 PCP - General 03/24/03 02/19/15 Bill Bowens PA-C NO INFO AVAILABLE 08/25/2022 PCP - General Physician Wind Farm Designer 02/20/15 09/18/19 Bill Bowens PA-C [address] [place] [address] PCP - Assigned PCP 01/14/15 12/28/18 Alex Rao MD [address] [place] [address] PCP - General Internal Medicine 09/19/19 Bill Bowens PA-C [address] [place] [address] Assigned PCP 01/14/15 12/03/19 Alex Rao MD [address] [facility] [place] [address] Assigned PCP 12/04/19 02/18/20 Beni Puga MD PhD [address] [facility] [place] [address] Assigned PCP 02/19/20 02/25/20 Alex Rao MD [address] [facility] [place] [address] Assigned PCP 02/26/20 03/20/21 Nate Leong MD [address] [place], [place] 4022[address] Assigned Surgical Provider 08/17/20 11/07/22 Sharri Hdez MD 420 [facility] 101 [place], [place] [address] Assigned Endocrinology Provider 12/16/20 03/16/24 Alex Rao MD [address] [place] [address] Assigned PCP 03/21/21 Alex Rao MD [address] [place] [address] Referring Physician Internal Medicine 04/02/22 Russell Agosto MD [address] [address] Neurology 04/02/22 Magdalena Fry MD [address] [address] Assigned Heart and Vascular Provider 04/26/22 02/15/24 Doris Chaney [facility] [address] [phone] Pharmacist Pharmacist 07/21/22 Doris Chaney [facility] [address] [phone] Assigned MTM Pharmacist 07/26/2202/14 [place] [address] [phone] Nephrology 05/14/23 documented as of this encounter
--- OUTSIDE RECORDS SUMMARY | 2025-04-22 10:08 | XMS_ITS | Encounter Summary ---
Author Organization [place] Address [address] [place] [address] 18287 Care Team Providers Care Massage Operator Name Role Phone Alex Rao MD Primary Care Provider Nate Leong MD Unavailable [phone] Sharri Hdez MD Unavailable Alex Rao MD Unavailable [phone] Alex Rao MD Unavailable [phone] Russell Agosto MD Unavailable [phone] Magdalena Fry MD Unavailable Doris Chaney [facility] Unavailable Doris Chaney [facility] Unavailable [phone] Canelo Kelley MD Unavailable Reason for Visit * Reason Comments Medication Refill Encounter Details Date Type Department Care Team (Late st Contact Info) Description [facility] [address] [address] Alex Rao MD [address] [place] [address] Medication Refill Social History Tobacco Use [...] AM CDT Legal Sex Male 4:10 AM JAVA LEAD Gender Identity Male 11/22/2018 10:40 AM JAVA LEAD Sexual Orientation Straight 11/22/2018 10 :40 AM JAVA LEAD Occupation Industry Job Start Date Job 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 No / Unsure 06/13/2022 11:00 AM CDT documented as of this encounter Plan of Treatment Upcoming Encounters Date Type Department Care Team (Late st Contact Info) Description 06/30/2025 Ancillary Procedure [address] [address] Magdalena Fry MD [address] [place] [address] 10/02/2025 Ancillary Procedure [address] [address] Magdalena Fry MD [address] [place] [address] [phone] documented as of this encounter Visit Diagnoses Diagnosis Essential hypertension with goal blood pressure less than 140/90 documented in this encounter Additional Health Concerns Assessment Noted Time PHQ-9 Depression Total Score: 9 06/10/20 22 11:44 AM CDT documented as of this encounter Care Teams Massage Operator Relationship Specialty Start Date End Date Alex Rao MD PCP - General Internal Medicine 09/19/19 Nate Leong MD [address] [place], [place] 442745 Assigned Surgical Provider 08/17/20 11/07/22 Sharri Hdez MD [facility] [address] [place] [address] Assigned Endocrinology Provider 12/16/20 03/16/24 Alex Rao MD [address] [facility] [place], [place] [phone] Assigned PCP 03/21/21 Alex Rao MD [address] [facility] [place], [place] 018[address] Referring Physician Internal Medicine 04/02/22 Russell Agosto MD [address] [place] [address] [facility] [address] [place], [place] 4599[address] Neurology 04/02/22 Magdalena Fry MD [address] [place] [address] [facility] [address] [place], [place] 050225 Assigned Heart and Vascular Provider 04/26/22 02/15/24 Doris Chaney [facility] [address] [phone] Pharmacist Pharmacist 07/21/22 Doris Chaney [facility] [address] [address] Assigned MTM Pharmacist 07/26/2202/14 [place] [address] [phone] Nephrology 05/14/23 documented as of this encounter
--- OUTSIDE RECORDS SUMMARY | 2025-04-22 10:08 | XMS_ITS | Encounter Summary ---
Author Organization [place] Address [address] [place] [address] Care Team Providers Care Lath Tier Name Role Phone Lyric Grimes MD Primary Care Provider U nealsharon Bill Bowens PA-C Primary Care Provider + Bill Bowens PA-C Unavailable [phone] Bill Bowens PA-C Unavailable [phone] Alex Rao MD Primary Care Provider [phone] Alex Rao MD Unavailable [phone] Beni Puga MD PhD Unavailable Alex Rao MD Unavailable [phone] Nate Leong MD Unavailable [phone] Sharri Hdez MD Unavailable [phone] Alex Rao MD Unavailable [phone] Alex Rao MD Unavailable [phone] Russell Agosto MD Unavailable [phone] Magdalena Fry MD Unavailable Doris Chaney [facility] Unavailable [phone] Doris Chaney [facility] Unavailable [phone] Canelo Kelley MD Unavailable Reason for Visit * Reason Onset Date Comments Refill Request 04/02/2009 metformin Encounter Details Date Type Department Care Team (Late Contact Info) Description 04/02/2009 MyC Refill M [address] [phone] Lyric Grimes MD NO INFO AVAILABLE 08/25/2022 Refill Request (metformin) Social History Tobacco Use Types Packs/Day Years Used Date Smoking Tobacco: Former Cigarettes Q uit: 02/21/1974 Alcohol Use Standard Drinks/Week Comments Yes 0 (1 standard drink = 0.6 oz pur e alcohol) occasional Sex and Gender Information Value Date Recorded Sex Assigned at Male 07/18/2019 7:43 AM CDT Legal Sex Male 4:10 AM SHEET MANUFACTURING SUPERVISOR Gender Identity Male 11/22/2018 10:40 AM SHEET MANUFACTURING SUPERVISOR Sexual Orientation Straight 11/22/2018 10 :40 AM SHEET MANUFACTURING SUPERVISOR Occupation Industry Job Start Date Job 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 documented in this encounter Plan of Treatment Upcoming Encounters Date Type Department Care Team (Late st Contact Info) Description 06/30/2025 Ancillary Procedure [address] [place] [phone] Magdalena Fry MD [address] [place] [address] [phone] 10/02/2025 Ancillary Procedure [address] [place] [phone] Magdalena Fry MD [address] [place] [address] documented as of this encounter Visit Diagnoses Diagnosis Diabetes mellitus, type 2 (H) Type II or unspecified type diabetes mellitus without mention of complication, not stated as uncontrolled documented in this encounter Care Teams Lath Tier Relationship Specialty Start Date End Date Lyric Grimes MD NO INFO AVAILABLE 08/25/2022 PCP - General 03/24/03 02/19/15 Bill Bowens PA-C NO INFO AVAILABLE 08/25/2022 PCP - General Physician Parking Meter Servicer 02/20/15 09/18/19 Bill Bowens PA-C [address] [place] [address] PCP - Assigned PCP 01/14/15 12/28/18 Alex Rao MD [address] [place] [address] PCP - General Internal Medicine 09/19/19 Bill Bowens PA-C [address] [place] [address] Assigned PCP 01/14/15 12/03/19 Alex Rao MD [address] [place] [address] Assigned PCP 12/04/19 02/18/20 Beni Puga MD PhD [address] [place] [address] Assigned PCP 02/19/20 02/25/20 Alex Rao MD [address] [place] [address] Assigned PCP 02/26/20 03/20/21 Nate Leong MD [address] 200165 Assigned Surgical Provider 08/17/20 11/07/22 Sharri Hdez MD [address] [place] [address] [facility] [address] [place], [place] 548835 Assigned Endocrinology Provider 12/16/20 03/16/24 Alex Rao MD [address] [place] [address] Assigned PCP 03/21/21 Alex Rao MD [address] [place] [address] Referring Physician Internal Medicine 04/02/22 Russell Agosto MD 420 [facility] [address] [place] [address] Neurology 04/02/22 Magdalena Fry MD 420 [facility] [address] [place], [place] 6[address]15 Assigned Heart and Vascular Provider 04/26/22 02/15/24 Doris Chaney [facility] [address] [place] [phone] Pharmacist Pharmacist 07/21/22 Doris Chaney [facility] [address] [phone] Assigned MTM Pharmacist 07/26/2202/14 [place] [address] [phone] Nephrology 05/14/23 documented as of this encounter
--- OUTSIDE RECORDS SUMMARY | 2025-04-22 10:08 | XMS_ITS | Encounter Summary ---
Author Organization [place] Address [address] [place] [address] 1977[address] Care Team Providers Care Computer Technical Specialist Name Role Phone Antonio Celeste MD Primary Care Provider U nealsharon Bill Bowens PA-C Primary Care Provider + Bill Bowens PA-C Unavailable [phone] Bill Bowens PA-C Unavailable [phone] Alex Rao MD Primary Care Provider [phone] Alex Rao MD Unavailable Beni Puga MD PhD Unavailable Alex Rao MD Unavailable [phone] Nate Leong MD Unavailable [phone] Sharri Hdez MD Unavailable [phone] Alex Rao MD Unavailable [phone] Alex Rao MD Unavailable Russell Agosto MD Unavailable [phone] Magdalena Fry MD Unavailable Doris Chaney [facility] Unavailable [phone] Doris Chaney [facility] Unavailable [phone] Canelo Kelley MD Unavailable Encounter Details Date Type Department Care Team (Late st Contact Info) Description 04/16/2011 MyC Medical Advice Initial Department [facility] Social History Tobacco Use Types Packs/Day Years Used Date Smoking Tobacco: Former Cigarettes Q uit: 02/21/1974 Alcohol Use Standard Drinks/Week Comments Yes 0 (1 standard drink = 0.6 oz pure alcohol) occasional; 2-12 beers per weekends Sex and Gender Information Value Date Recorded Sex Assigned at Male 07/18/2019 7:43 AM CDT Legal Sex Male 4:10 AM 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 OF SCHOOLS Gender Identity Male 11/22/2018 10:40 AM 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 OF SCHOOLS Sexual Orientation Straight 11/22/2018 10 :40 AM 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 OF SCHOOLS Occupation Industry Job Start Date Job 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- [employer] Not on file Not on file Not on file documented as of this encounter Plan of Treatment Upcoming Encounters Date Type Department Care Team (Late st Contact Info) Description 06/30/2025 Ancillary Procedure [address] [address] Magdalena Fry MD [address] [place] [address] [phone] 10/02/2025 Ancillary Procedure [address] [address] Magdalena Fry MD [address] [place] [address] documented as of this encounter Visit Diagnoses Not on filedocumented in this encounter Care Teams Computer Technical Specialist Relationship Specialty Start Date End Date Antonio Celeste MD NO INFO AVAILABLE 08/25/2022 PCP - General 03/24/03 02/19/15 Bill Bowens PA-C NO INFO AVAILABLE 08/25/2022 PCP - General Physician Card Grinder 02/20/15 09/18/19 Bill Bowens PA-C [address] [address] PCP - Assigned PCP 01/14/15 12/28/18 Alex Rao MD [address] [address] PCP - General Internal Medicine 09/19/19 Bill Bowens PA-C [address] [address] Assigned PCP 01/14/15 12/03/19 Alex Rao MD [address] [facility] [place] [address] Assigned PCP 12/04/19 02/18/20 Beni Puga MD PhD [address] [facility] [place] [address] Assigned PCP 02/19/20 02/25/20 Alex Rao MD [address] [facility] [place] [address] Assigned PCP 02/26/20 03/20/21 Nate Leong MD [address] [place], [place] 1635[address] Assigned Surgical Provider 08/17/20 11/07/22 Sharri Hdez MD 420 [facility] 101 [place], [place] [address] Assigned Endocrinology Provider 12/16/20 03/16/24 Alex Rao MD [address] [place] [address] Assigned PCP 03/21/21 Alex Rao MD [address] [place] [address] Referring Physician Internal Medicine 04/02/22 Russell Agosto MD [address] [place] [address] 148[address] Neurology 04/02/22 Magdalena Fry MD [address] 417585 Assigned Heart and Vascular Provider 04/26/22 02/15/24 Doris Chaney [facility] [address] [phone] Pharmacist Pharmacist 07/21/22 Doris Chaney [facility] [address] [phone] Assigned MTM Pharmacist 07/26/2202/14 [place] [address] [phone] Nephrology 05/14/23 documented as of this encounter
--- OUTSIDE RECORDS SUMMARY | 2025-04-22 10:08 | XMS_ITS | Encounter Summary ---
Author Organization [place] Address [address] [place] [address] Care Team Providers Care Television News Anchor Name Role Phone Alex Rao MD Primary Care Provider [phone] Sharri Hdez MD Unavailable [phone] Alex Rao MD Unavailable [phone] Alex Rao MD Unavailable [phone] Russell Agosto MD Unavailable [phone] Magdalena Fry MD Unavailable Doris Chaney [facility] Unavailable [phone] Doris Chaney [facility] Unavailable [phone] Canelo Kelley MD Unavailable Encounter Details Date Type Department Care Team (Late st Contact Info) Description 12/04/2022 [facility] Medical Advice [facility] [address] [place] [address] Emilee Linares Social History Tobacco [...] AM CDT Legal Sex Male 4:10 AM WELD INSPECTOR Gender Identity Male 11/22/2018 10:40 AM WELD INSPECTOR Sexual Orientation Straight 11/22/2018 10 :40 AM WELD INSPECTOR Occupation Industry Job Start Date Job 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 Unable to assess 12/03/2022 5:50 AM WELD INSPECTOR documented as of this encounter Plan of Treatment Upcoming Encounters Date Type Department Care Team (Late st Contact Info) Description 06/30/2025 Ancillary Procedure [address] [phone] Magdalena Fry MD [address] [place] [address] [phone] 10/02/2025 Ancillary Procedure [address] [phone] Magdalena Fry MD [address] [place] [address] [phone] documented as of this encounter Visit Diagnoses Not on filedocumented in this encounter Additional Health Concerns Assessment Noted Time PHQ-9 Depression Total Score: 9 06/10/20 22 11:44 AM CDT documented as of this encounter Care Teams Television News Anchor Relationship Specialty Start Date End Date Alex Rao MD PCP - General Internal Medicine 09/19/19 Sharri Hdez MD [address] [place] [address] Assigned Endocrinology Provider 12/16/20 03/16/24 Alex Rao MD [address] [facility] [address] Assigned PCP 03/21/21 Alex Rao MD [address] [place] [address] Referring Physician Internal Medicine 04/02/22 Russell Agosto MD [address] 056645 Neurology 04/02/22 Magdalena Fry MD [address] 412395 Assigned Heart and Vascular Provider 04/26/22 02/15/24 Doris Chaney [facility] [address] [phone] Pharmacist Pharmacist 07/21/22 Doris Chaney [facility] [address] [phone] Assigned MTM Pharmacist 07/26/2202/14 [place] [address] [phone] Nephrology 05/14/23 documented as of this encounter
--- OUTSIDE RECORDS SUMMARY | 2025-04-22 10:08 | XMS_ITS | Encounter Summary ---
Author Organization [place] Address [address] [place] [address] Care Team Providers Care Bailer Operators Supervisor Name Role Phone Bill Bowens PA-C Primary Care Provider + Bill Bowens PA-C Unavailable [phone] Bill Bowens PA-C Unavailable [phone] Alex Rao MD Primary Care Provider [phone] Alex Rao MD Unavailable [phone] Beni Puga MD PhD Unavailable Alex Rao MD Unavailable [phone] Nate Leong MD Unavailable [phone] Sharri Hdez MD Unavailable [phone] Alex Rao MD Unavailable [phone] Alex Rao MD Unavailable Russell Agosto MD Unavailable [phone] Magdalena Fry MD Unavailable Doris Chaney [facility] Unavailable [phone] Doris Chaney [facility] Unavailable [phone] Canelo Kelley MD Unavailable Reason for Visit * Reason Onset Date Comments Patient Request 04/23/2018 Encounter Details Date Type Department Care Team (Late st Contact Info) Description 04/23/2018 MyC Medical Advice [address] [address] Bill Bowens PA-C [address] [place] [address] Patient Request Social History Tobacco Use Types Packs/Day Years Used Date Smoking Tobacco: Former Cigarettes 0.5 3 0 02/21/1971 - 02/21/1974 Pipe Smokeless Tobacco: Former Alcohol Use Standard Drinks/Week Comments Yes 0 (1 standard drink = 0.6 oz pur e alcohol) 3 drinks/week Sex and Gender Information Value Date Recorded Sex Assigned at Male 07/18/2019 7:43 AM CDT Legal Sex Male 4:10 AM EXPERIMENTAL MECHANIC ELECTRICAL Gender Identity Male 11/22/2018 10:40 AM EXPERIMENTAL MECHANIC ELECTRICAL Sexual Orientation Straight 11/22/2018 10 :40 AM EXPERIMENTAL MECHANIC ELECTRICAL Occupation Industry Job Start Date Job 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- [employer] Not on file Not on file Not on file documented as of this encounter Plan of Treatment Upcoming Encounters Date Type Department Care Team (Late st Contact Info) Description 06/30/2025 Ancillary Procedure [address] [phone] Magdalena Fry MD [address] [place] [address] [phone] 10/02/2025 Ancillary Procedure [address] [phone] Magdalena Fry MD [address] [place] [address] [phone] documented as of this encounter Visit Diagnoses Not on filedocumented in this encounter Care Teams Bailer Operators Supervisor Relationship Specialty Start Date End Date Bill Bowens PA-C PCP - General Physician Log Buyer 02/20/15 09/18/19 Bill Bowens PA-C [address] [address] PCP - Assigned PCP 01/14/15 12/28/18 Alex Rao MD [address] [address] PCP - General Internal Medicine 09/19/19 Bill Bowens PA-C [address] [address] Assigned PCP 01/14/15 12/03/19 Alex Rao MD [address] [place] [address] Assigned PCP 12/04/19 02/18/20 Beni Puga MD PhD [address] [place] [address] Assigned PCP 02/19/20 02/25/20 Alex Rao MD [address] [place] [address] Assigned PCP 02/26/20 03/20/21 Nate Leong MD [address] [place] 15[address] Assigned Surgical Provider 08/17/20 11/07/22 Sharri Hdez MD [address] [place] [address] 503705 Assigned Endocrinology Provider 12/16/20 03/16/24 Alex Rao MD [address] [place] [address] Assigned PCP 03/21/21 Alex Rao MD [address] [place] [address] Referring Physician Internal Medicine 04/02/22 Russell Agosto MD [address] 271765 Neurology 04/02/22 Magdalena Fry MD [address] 668625 Assigned Heart and Vascular Provider 04/26/22 02/15/24 Doris Chaney [facility] [address] [place] [phone] Pharmacist Pharmacist 07/21/22 Doris Chaney [facility] [address] [phone] Assigned MTM Pharmacist 07/26/2202/14 [place] [address] [phone] Nephrology 05/14/23 documented as of this encounter
--- OUTSIDE RECORDS SUMMARY | 2025-04-22 10:08 | XMS_ITS | Clinical Summary ---
Author Organization [facility] Address [address] [place] [address] Care Team Providers Care Cloth Neutralizer Name Role Phone Unavailable Primary Care Provider Unavailabl e Source Comments You are receiving this document as you are listed as the primary care provider,follow-up provider, or the patient has been referred to you for consultation.This is in compliance with the Medicare and[facility] Hospital[facility] EHR Incentive Program,which states Providers who transition their patient to another setting of careor provider of care or refers their patient to another provider of care shouldprovide summary care record for each transition of care or referral. [employer] Allergies Active Allergy Reactions Criticality Noted Date Comments Cat Dander Cough,Swelling 04/18/2011 Cat and Dog dander Sucrose Unknown 12/10/2020 Sulfa Antibiotics Rash Low 02/22/2004 Medications aspirin EC 81 MG enteric coated tablet Take 81 mg by mouth. 02/14/20 22 Active atorvastatin (LIPITOR) 40 MG tablet Take 40 mg by mouth. 04/01/20 22 Active clopidogrel (PLAVIX) 75 MG tablet Take 75 mg by mouth. 04/01/20 22 Active Continuous Blood Gluc Sensor (FREESTYLE CHERRY 14 DAY SENSOR) MISC Apply topically every 14 days. 03/25/20 22 Active losartan (COZAAR) 50 MG tablet Take 50 mg by mouth daily. 04/08/20 Active metFORMIN XR (GLUCOPHAGE XR) 500 MG 24 hour release tablet Take 1,000 mg by mouth. 02/18/20 Active omeprazole (PRILOSEC) 20 MG capsule Take 20 mg by mouth. 02/14/20 22 Active semaglutide (OZEMPIC, 1 MG/DOSE,) 4 MG/3ML injection Inject 1 mg subcutaneously. 02/04/20 Active Tadalafil (CIALIS) 20 MG tablet Take 20 mg by mouth daily as needed. 03/06/20 Active tamsulosin (FLOMAX) 0.4 MG CAPS capsule Take 1 Capsule by mouth every evening. 04/01/20 Active testosterone cypionate (DEPO-TESTOSTE KRISTIE) 200 MG/ML injection INJECT 100MG (0.5 ML) INTRAMUSCULARLY ONCE WEEKLY 02/18/20 Active Active Problems No known active problems Social History Tobacco Use Types Packs/Day Years Used Date Smoking Tobacco: Former Cigarettes Q uit: 1974 Alcohol Use Standard Drinks/Week Comments Yes 0 (1 standard drink = 0.6 oz pur e alcohol) occasional Sex and Gender Information Value Date Recorded Sex Assigned at Not on file Legal Sex Male 10:40 AM CDT Gender Identity Not on file Sexual Orientation Not on file Last Filed Vital Signs Vital Sign Reading Time Taken Comments Blood Pressure 135/62 04/14/2022 11:32 AM CDT Pulse 73 04/14/2022 11:32 AM CDT Temperature 36.9 C (98.4 F) 04/14/2022 11:32 AM CDT Respiratory Rate - - Oxygen Saturation 96% 04/14/2022 11:32 AM CDT Inhaled Oxygen Concentration - - Weight - - Height - - Body Mass Index - - Plan of Treatment Health Maintenance Due Date Last Done Comments Colon Cancer Screening Plan Due 1950 Hep C Screening (Preventive Services) 1950 Cholesterol 1985 Zoster/Shingles Vaccine (3 of 3) 10/01/2021 08/06/2021, 07/18/2013 DTaP/Tdap/Td Vaccine (2 - Tdap) 01/04/2023 01/04/2013, 10/12/2003 COVID-19 Vaccine (3 - season) 2024 03/22/2021, 03/01/2021 Medicare Annual Wellness Visit 10/26/2024 RSV Vaccine (1 - 1-dose 75+ series) 2025 Influenza Vaccine (Season Ended) 2025 08/06/2021, 06/22/2020, 08/23/2019, Additional history exists HepA Vaccine Aged Out 04/16/2004, 10/12/2003 No lo nger eligible based on patient's age to complete this topic Pneumococcal Vaccine 50+ Yrs Completed 12/2016, 08/23/2015, 01/05/2003 HepB Vaccine Aged Out No longer eligi ble based on patient's age to complete this topic Hib Vaccine Aged Out No longer eligi ble based on patient's age to complete this topic MCV4 Vaccine Aged Out No longer eligi ble based on patient's age to complete this topic Meningococcal B Vaccine Aged Out No l onger eligible based on patient's age to complete this topic Insurance [facility] MEDIC[facility] ADVANTAGE
--- OUTSIDE RECORDS SUMMARY | 2025-04-22 10:08 | XMS_ITS | Encounter Summary ---
Author Organization [facility] Address [address] [place] [address] Care Team Providers Care Nursing Techn Name Role Phone Alex Rao MD Primary Care Provider Nate Leong MD Unavailable [phone] Sharri Hdez MD Unavailable [phone] Alex Rao MD Unavailable [phone] Alex Rao MD Unavailable [phone] Russell Agosto MD Unavailable [phone] Magdalena Fry MD Unavailable Doris Chaney [facility] Unavailable Doris Chaney [facility] Unavailable Canelo Kelley MD Unavailable Reason for Visit * Reason Comments Medication Refill Encounter Details Date Type Department Care Team (Late st Contact Info) Description 09/04/[address] [address] Alex Rao MD [address] [place] [address] Medication Refill Social History Tobacco Use [...] AM CDT Legal Sex Male 4:10 AM PATTERN CHANGER AND REPAIRER Gender Identity Male 11/22/2018 10:40 AM PATTERN CHANGER AND REPAIRER Sexual Orientation Straight 11/22/2018 10 :40 AM PATTERN CHANGER AND REPAIRER Occupation Industry Job Start Date Job 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 and other lower urinary tract symptoms (LUTS) documented in this encounter Additional Health Concerns Assessment Noted Time PHQ-9 Depression Total Score: 9 06/10/20 22 11:44 AM CDT documented as of this encounter Care Teams Nursing Techn Relationship Specialty Start Date End Date Alex Rao MD PCP - General Internal Medicine 11/25/19 Nate Leong MD [address] 797645 Assigned Surgical Provider 08/17/20 11/07/22 Sharri Hdez MD [address] [place] [address] [facility] [address] [place], [place] [address] Assigned Endocrinology Provider 12/16/20 03/16/24 Alex Rao MD [address] [place], [place] [id number] Assigned PCP 03/21/21 Alex Rao MD [address] [place] [address] Referring Physician Internal Medicine 04/02/22 Russell Agosto MD [address] [facility] [address] [place], [place] [address] Neurology 04/02/22 Magdalena Fry MD [address] [facility] [address] [place], [place] 0[address] Assigned Heart and Vascular Provider 04/26/22 02/15/24 Doris Chaney [facility] [address] [place] [phone] Pharmacist Pharmacist 07/21/22 Doris Chaney [facility] [address] [place] [phone] Assigned MTM Pharmacist 07/26/2202/14 [place] [address] [place], [place] [address] Nephrology 05/14/23 documented as of this encounter
--- OUTSIDE RECORDS SUMMARY | 2025-04-22 10:08 | XMS_ITS | Encounter Summary ---
Author Organization [facility] Address [address] [place] [address] Care Team Providers Care Coating Machine Feeder Name Role Phone Alex Rao MD Primary Care Provider Nate Leong MD Unavailable [phone] Sharri Hdez MD Unavailable Alex Rao MD Unavailable [phone] Alex Rao MD Unavailable [phone] Russell Agosto MD Unavailable [phone] Magdalena Fry MD Unavailable Doris Chaney [facility] Unavailable Doris Chaney [facility] Unavailable Canelo Kelley MD Unavailable Reason for Visit * Reason Comments Medication Refill Encounter Details Date Type Department Care Team (Late st Contact Info) Description [facility] [address] [address] Alex Rao MD [address] [place] [address] Medication Refill Social History Tobacco Use [...] AM CDT Legal Sex Male 4:10 AM 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 Gender Identity Male 11/22/2018 10:40 AM ANALYTICS ASSOCIATE Sexual Orientation Straight 11/22/2018 10 :40 AM ANALYTICS ASSOCIATE Occupation Industry Job Start Date Job End [...] Contact Info) Description 06/30/2025 Ancillary Procedure [address] [address] Magdalena Fry MD [address] [place] [address] 258005 10/02/2025 Ancillary Procedure [address] [address] Magdalena Fry MD [address] [place] [address] [phone] documented as of this encounter Visit Diagnoses Diagnosis Essential hypertension with goal blood pressure less than 140/90 documented in this encounter Additional Health Concerns Assessment Noted Time PHQ-9 Depression Total Score: 9 06/10/20 22 11:44 AM CDT documented as of this encounter Care Teams Coating Machine Feeder Relationship Specialty Start Date End Date Alex Rao MD PCP - General Internal Medicine 09/19/19 Nate Leong MD [address] [place], [place] [address] Assigned Surgical Provider 08/17/20 11/07/22 Sharri Hdez MD [address] [facility] [address] [place] [address] Assigned Endocrinology Provider 12/16/20 03/16/24 Alex Rao MD [address] [facility] [place], [place] [id number] Assigned PCP 03/21/21 Alex Rao MD [address] [facility] [place], [place] 76[address] Referring Physician Internal Medicine 04/02/22 Russell Agosto MD [address] [place] [address] [facility] [address] [place], [place] [address] Neurology 04/02/22 Magdalena Fry MD [address] [place] [address] [facility] [address] [place], [place] 163735 Assigned Heart and Vascular Provider 04/26/22 02/15/24 Doris Chaney [facility] [address] [place] [phone] Pharmacist Pharmacist 07/21/22 Doris Chaney [facility] [address] [place] [phone] Assigned MTM Pharmacist 07/26/2202/14 [place] [address] [place] [address] Nephrology 05/14/23 documented as of this encounter
--- OUTSIDE RECORDS SUMMARY | 2025-04-22 10:08 | XMS_ITS | Encounter Summary ---
Author Organization [facility] Address [address] [place] [address] Care Team Providers Care Near East Archeology Professor Name Role Phone Antonio Celeste MD Primary Care Provider U nealsharon Bill Bowens PA-C Primary Care Provider + Bill Bowens PA-C Unavailable [phone] Bill Bowens PA-C Unavailable [phone] Alex Rao MD Primary Care Provider [phone] Alex Rao MD Unavailable [phone] Beni Puga MD PhD Unavailable Alex Rao MD Unavailable [phone] Nate Leong MD Unavailable Sharri Hdez MD Unavailable [phone] Alex Rao MD Unavailable [phone] Alex Rao MD Unavailable [phone] Russell Agosto MD Unavailable [phone] Magdalena Fry MD Unavailable Doris Chaney [facility] Unavailable [phone] Doris Chaney [facility] Unavailable [phone] Canelo Kelley MD Unavailable Reason for Visit * Reason Onset Date Comments MyChart Communication 11/06/2009 Encounter Details Date Type Department Care Team (Late st Contact Info) Description 11/06/2009 MyC Medical Advice [address] [address] Antonio Celeste MD NO INFO AVAILABLE 08/25/2022 MyChart Communication Social History Tobacco Use Types Packs/Day Years Used Date Smoking Tobacco: Former Cigarettes Q uit: 02/21/1974 Alcohol Use Standard Drinks/Week Comments Yes 0 (1 standard drink = 0.6 oz pur e alcohol) occasional Sex and Gender Information Value Date Recorded Sex Assigned at Male 07/18/2019 7:43 AM CDT Legal Sex Male 4:10 AM SENIOR RUBY DEVELOPER Gender Identity Male 11/22/2018 10:40 AM SENIOR RUBY DEVELOPER Sexual Orientation Straight 11/22/2018 10 :40 AM SENIOR RUBY DEVELOPER Occupation Industry Job Start Date Job 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 Ok for glucose so he can check his machine against ours? OR RUBY DEVELOPER documented in this encounter Plan of Treatment Upcoming Encounters Date Type Department Care Team (Late st Contact Info) Description 06/30/2025 Ancillary Procedure [address] [address] Magdalena Fry MD [address] [place] [address] [phone] 10/02/2025 Ancillary Procedure [address] [place] [phone] Magdalena Fry MD [address] [place], [place] [phone] documented as of this encounter Visit Diagnoses Diagnosis DIABETES UNCOMPL ADULT-TYPE II- Primary Type II or unspecified type diabetes mellitus without mention of complication, not stated as uncontrolled documented in this encounter Care Teams Near East Archeology Professor Relationship Specialty Start Date End Date Antonio Celeste MD NO INFO AVAILABLE 08/25/2022 PCP - General 03/24/03 02/19/15 Bill Bowens PA-C NO INFO AVAILABLE 08/25/2022 PCP - General Physician [employer] Teacher 02/20/15 09/18/19 Blil Bowens PA-C [address] [place] [address] PCP - Assigned PCP 01/14/15 12/28/18 Alex Rao MD [address] [place] [address] PCP - General Internal Medicine 09/19/19 Bill Bowens PA-C [address] [place] [address] Assigned PCP 01/14/15 12/03/19 Alex Rao MD [address] [place] [address] 967171 Assigned PCP 12/04/19 02/18/20 Beni Puga MD PhD [address] [place] [address] Assigned PCP 02/19/20 02/25/20 Alex Rao MD [address] [place] [address] Assigned PCP 02/26/20 03/20/21 Nate Leong MD [address] [address] Assigned Surgical Provider 08/17/20 11/07/22 Sharri Hdez MD [address] [phone] Assigned Endocrinology Provider 12/16/20 03/16/24 Alex Rao MD [address] [facility] [place] [address] Assigned PCP 03/21/21 Alex Rao MD [address] [facility] [place] [address] Referring Physician Internal Medicine 04/02/22 Russell Agosto MD [address] [address] Neurology 04/02/22 Magdalena Fry MD [address] 140275 Assigned Heart and Vascular Provider 04/26/22 02/15/24 Doris Chaney, [facility] [address] [place] [phone] Pharmacist Pharmacist 07/21/22 Doris Chaney [facility] [address] [place] [phone] Assigned MTM Pharmacist 07/26/2202/14 [place] [address] [place] [phone] Nephrology 05/14/23 documented as of this encounter
--- OUTSIDE RECORDS SUMMARY | 2025-04-22 10:08 | XMS_ITS | Data Portability ---
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 Plan of Treatment Reminders Order Date Submit Date Provider Last Modified By Organization Details Last Modified Time Details Appointments None record ed. Lab lipid panel, serum [address] [facility], [address], [place], [address], 5 13:42:05 CMP, serum or plasma [address] [facility], [address], [place], [address], 5 13:42:05 BMP, serum or plasma 2023 024 [facility], [address], [address], [place], [address], 4 09:36:11 lipid panel, serum 2022 023 [facility], [address], [address], [place], [address], 4 11:44:07 CBC 2022 023 [facility], [address], [address], [place], [address], 4 11:44:04 HbA1c (hemog lobin A1c), blood 2022 023 [facility], [address], [address], [place], [address], 4 11:44:03 CMP, serum or plasma 2022 023 [facility], [address], [address], [place], [address], 4 11:44:05 microa lbumin /creat inine, ratio, urine 2022 023 [facility], [address], [address], [place], [address], 4 14:36:26 testos terone , free + total, serum 2022 023 [facility], [address], [address], [place], [address], 4 11:44:08 PSA, serum or plasma 2022 023 [facility], [address], [address], [place], [address], 4 11:44:09 urinal ysis, comple te 2022 023 [facility], [address], [address], [place], [address], 4 14:36:25 protei n electr ophore sis panel, serum or plasma 2022 023 [facility], [address], [address], [place], [address], 4 11:44:10 Referral otolar yngolo gist referr al 2024 025 jonathan Ding MD ([facility]), [address], [address], [place], [address], 5 11:24:12 hemato logist referr al 2023 024 jonathan Hairston MD, [facility]ematology, [address], [address], [place], [address], 4 15:19:14 Procedures home sleep testin g (PROC) 2024 025 msantoyosolori o [facility], [address] [place] [address] [address], [place], [address], 5 08:54:44 Surgeries None record ed. Imaging electr ocardi ogram 2024 025 [email or web address] In-Office Order, Internal Use Only DO Not Attach Compendium DO Not Attach Compendium, Do Not Delete/merge, [id number] 5 11:09:21 Medication Orders levoce tirizi ne 5 mg tablet 2024 025 [facility] [place], [address] [place], [address], 5 09:31:21 amlodi pine 10 mg tablet 2023 024 [facility] [place], [address] [place], [address], 5 09:50:02 rosuva statin 10 mg tablet 2023 024 [facility] [place], [address] [place], [place], [address], 4 09:05:09 Ozempi c 1 mg/dos e (4 mg/3 mL) subcut aneous pen inject or 2023 024 [facility] [place], [address] [place], [address], 4 09:25:25 flutic asone propio gerardo 50 mcg/ac tuatio n nasal spray, suspen nakia 2023 024 [facility] [place], [address] [place], [place], [address], 4 09:25:25 azelas macrina 137 mcg (0.1 %) nasal spray 2023 024 [facility] [place], [address] [place], [address], 4 09:25:25 tamsul osin 0.4 mg capsul e 2023 024 [facility] [place], [address] [place], [address], 4 09:25:29 pantop razole 40 mg tablet ,delay ed releas e 2023 024 [facility] [place], [address] [place], [address], 4 09:25:25 amlodi pine 5 mg tablet 2023 024 [facility] [place], [address] [place], [address], 4 09:25:25 azelas macrina 137 mcg (0.1 %) nasal spray 2022 023 [facility] [place] [address], [address] [place], [address], 3 14:12:16 flutic asone propio gerardo 50 mcg/ac tuatio n nasal spray, suspen nakia 2022 023 [facility] [place], [address] [place], [address], 3 14:12:16 Patient TargetsNo targets recorded. Patient Instructions Encounter Date Encounter Id Patient Instructions Last Modified By Organization Details Last Modified Time 10/14/2023 [id number] starting a weigh t loss plan: care instructions [email or web address] Not available 10/14/2023 13:38:54 11/04/2023 [id number] anemia: care instructions [email or web address] Not available 11/04/2023 09:25:22 Instructed to ca ll with any questions or concerns. Patient verbalized understanding. [email or web address] Not available 11/04/2023 09:25:19 Patient understands instructions and will seek medical attention if symptoms worsen as directed. [email or web address] Not available 11/04/2023 09:24:21 01/01/2024 [id number] Instructed to ca ll with any questions or concerns. Patient verbalized understanding. [email or web address] Not available 01/01/2024 09:00:24 Patient understands instructions and will seek medical attention if symptoms worsen as directed. [email or web address] Not available 01/01/2024 09:00:13 10/31/2024 [id number] We discussed you r upcoming oral surgery: - I will send my office notes and your EKG results to your surgical team by tomorrow morning. 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 - Stop taking Ozempic two weeks before your surgery to avoid any potential complications with anesthesia. We discussed your current medications: - Continue taking amlodipine for your blood pressure until after your surgery. We will discuss switching to a different medication at your next visit to see if it helps with your oral ulcers. - Continue your current testosterone injections (1 mL or 200 mg every two weeks). - Please provide me with your recent PSA and CBC lab results so I can have them on file. This will allow me to manage your testosterone therapy and prescribe it for you locally if needed. [email or web address] Not available 10/31/2024 10:19:40 11/14/2024 [id number] high cholesterol : care instructions [email or web address] Not available 11/14/2024 09:31:19 sleep apnea: car e instructions kstrumpfler Not available 11/14/2024 09:31:19 learning about type 2 diabetes kstrumpfler Not available 11/14/2024 09:31:19 medicines to daly id with kidney disease: care instructions [email or web address] Not available 11/14/2024 09:31:19 SCREENING SCHEDULE DEPRESSION SCREENING: A Depression Screening Assessment was conducted, with staff-assisted depression care supports during this encounter and all actions of this assessment and time elements of up to 15 minutes were met. COLORECTAL CANCER SCREENING: Colonoscopy, average risk, every 10 years unless advised differently by provider CERVICAL CANCER SCREENING - PAP (female only): no longer recommended due to hysterectomy, age, and/or low risk unless advised differently by provider BREAST CANCER SCREENING: Mammogram: recommended annually unless advised differently by provider OSTEOPOROSIS SCREENING - Bone density (female only): At age 65 and every 2 years or as advised by your provider CARDIOVASCULAR RISK SCREENING - AAA screening (male only): Recommended once per lifetime, if personal history of smoking greater than 100 cigs and age 65-75 VACCINE RECOMMENDATIONS: (except if you have experienced severe allergic reaction [e.g. anaphylaxis] after a previous dose/a component of these vaccines OR otherwise advised by your provider not to receive it) Covid vaccine: vaccine recommended per guidelines Influenza vaccine: recommended annually Pneumococcal Vaccine: vaccine recommended per guidelines Shingles vaccine - Shingrix: vaccine recommended per guidelines Tetanus vaccine: recommended every 10 years [email or web address] Not available 11/14/2024 09:06:14 We discussed you r lab results: - Your urine showed a little bit of bacteria, but the culture came back negative, so there is no urinary tract infection. - Your thyroid function is normal. - Your PSA is normal at 1.47. - Your cholesterol levels have improved significantly: - Total cholesterol is 144, down from 268 last year. - HDL (good cholesterol) is 49. - Triglycerides are 156, down from 328, though still slightly elevated. - LDL (bad cholesterol) is 72, down from 158. - Your fasting blood sugar is 131, which is a bit high. - Your A1c is 6.9, down from 7, but we aim to keep it below 7. - Your creatinine is 1.75, which is an improvement. - Your GFR is 40, better than previous readings in the 30s. - Your sodium levels are good. - Your potassium is slightly high at 5, likely due to your kidney function. - Your liver enzymes are normal. - Your CBC is normal, with no signs of infection or anemia. - Your hemoglobin is 12.7, which is a bit low but better than previous readings. We discussed your current medications: - Continue taking Rosuvastatin 10 mg daily for cholesterol management. - Continue taking Lisinopril 10 mg daily for blood pressure management. - Resume taking Ozempic after your surgery to help control your blood sugar levels. - For nasal congestion, continue using Flonase once daily and Azelastine twice daily. You can also start taking Levocetirizine at night to help with your symptoms. We discussed your upcoming surgery and follow-up appointments: - You have surgery scheduled on November 22. - You will follow up with your oral pathologist on November 30. - We will have a follow-up appointment in early December to discuss your medications and blood pressure. We discussed additional tests and referrals: - I will refer you to an ENT specialist for further evaluation of your nasal congestion. - I will order a home sleep study to evaluate for sleep apnea. You will receive a phone call from Gemvara to schedule this. We discussed lifestyle modifications: - Continue monitoring your blood sugar levels and keep a log. - Work on weight loss, as it may help with your symptoms and overall health. - Use saline sprays to help with nasal congestion. - Consider using a CPAP machine if the sleep study indicates sleep apnea. [email or web address] Not available 11/14/2024 09:25:25 Reason for Referral Referring Physician: Lesvia Hess, Family Medicine, Encounter Date: 11/04/2023 Cro Referral fo r Allergic rhinitis [facility]: 11/14/2024 Results Created Date Observation Date Name Description Value Unit Range Abnormal Flag Note LastModifiedBy Organization Detail LastModifiedTime 10/23/2010/27/2023 URINA LYSIS , COMPL ETE W/ REFLE X TO CULTU RE color YELLOW yellow normal Not Available [facility] [address] [place], [place] [address], [place], [address], 10/27/2023 14:36:25 10/23/20 23 10/27/2023 URINA LYSIS , COMPL ETE W/ REFLE X TO CULTU RE appearance CLEAR clear normal Not Available [facility] [address], [place], [address], 10/27/2023 14:36:25 10/23/20 23 10/27/2023 URINA LYSIS , COMPL ETE W/ REFLE X TO CULTU RE specific gravity 1.012 1.001- 1.035 normal Not Available [facility] [address], [place], [address], 10/27/2023 14:36:25 10/23/20 23 10/27/2023 URINA LYSIS , COMPL ETE W/ REFLE X TO CULTU RE pH 5.5 5.0-8. 0 normal Not Available [facility] [address] [place] [address] [address] [place], [address], 10/27/2023 14:36:25 10/23/20 23 10/27/2023 URINA LYSIS , COMPL ETE W/ REFLE X TO CULTU RE glucose NEGATI VE negati ve normal Not Available [facility] [address], [place], [address], 10/27/2023 14:36:25 10/23/20 23 10/27/2023 URINA LYSIS , COMPL ETE W/ REFLE X TO CULTU RE bilirubin NEGATI VE negati ve normal Not Available [facility] [address], [place], [address], 10/27/2023 14:36:25 10/23/20 23 10/27/2023 URINA LYSIS , COMPL ETE W/ REFLE X TO CULTU RE ketones NEGATI VE negati ve normal Not Available [facility] [address] [facility] [address], [place], [address], 10/27/2023 14:36:25 10/23/20 23 10/27/2023 URINA LYSIS , COMPL ETE W/ REFLE X TO CULTU RE occult blood 1+ negati ve abnormal Not Available [facility] [address], [place], [address], 10/27/2023 14:36:25 10/23/20 23 10/27/2023 URINA LYSIS , COMPL ETE W/ REFLE X TO CULTU RE protein 1+ negati ve abnormal Not Available [facility] [address] [place] [address] [address], [place], [address], 10/27/2023 14:36:25 10/23/20 23 10/27/2023 URINA LYSIS , COMPL ETE W/ REFLE X TO CULTU RE nitrite POSITI VE negati ve abnormal Not Available [facility] [address] [place] [address] [address], [place], [address], 10/27/2023 14:36:25 10/23/20 23 10/27/2023 URINA LYSIS , COMPL ETE W/ REFLE X TO CULTU RE leukocyte esterase 3+ negati ve abnormal Not Available [facility] [address] [facility], [place], [address], 10/27/2023 14:36:25 10/23/20 23 10/27/2023 URINA LYSIS , COMPL ETE W/ REFLE X TO CULTU RE WBC > OR = 60 /hpf < or = 5 abnormal Not Available [facility] [facility] [address], [place], [address], 10/27/2023 14:36:25 10/23/20 23 10/27/2023 URINA LYSIS , COMPL ETE W/ REFLE X TO CULTU RE RBC NONE SEEN /hpf < or = 2 normal Not Available [facility] [address] [place] [address] [address], [place], [address], 10/27/2023 14:36:25 10/23/20 23 10/27/2023 URINA LYSIS , COMPL ETE W/ REFLE X TO CULTU RE squamous epithelial cells NONE SEEN /hpf < or = 5 normal Not Available [facility] [address] [place] [address] [address], [place], [address], 10/27/2023 14:36:25 10/23/20 23 10/27/2023 URINA LYSIS , COMPL ETE W/ REFLE X TO CULTU RE bacteria MODERA TE /hpf none seen abnormal Not Available [facility] [address] [place] [address] By, [place], [address], 10/27/2023 14:36:25 10/23/20 23 10/27/2023 URINA LYSIS , COMPL ETE W/ REFLE X TO CULTU RE hyaline cast 0-5 /lpf none seen abnormal Not Available [facility] [address] [place] [address] [address], [place], [address], 10/27/2023 14:36:25 10/23/20 23 10/27/2023 URINA LYSIS , COMPL ETE W/ REFLE X TO CULTU RE note SEE NOTE This urine was holden zed for the prese nce of WBC, RBC, bacte yahir, casts , and other forme d eleme nts. Only those eleme nts seen were repor thierno. Not Available [facility] [address] [place] [address] [address], [place], [address], 10/27/2023 14:36:25 10/23/20 23 10/27/2023 MICRO ALBUM IN, RAND (UR/C REAT) creatinine, random urine 121 mg/dL 20-320 normal Not Available [facility] [address], [place], [address], 10/27/2023 14:36:26 10/23/20 23 10/27/2023 MICRO ALBUM IN, RAND (UR/C REAT) albumin, urine 4.5 mg/dL see note: normal Refer ence Range : Refer ence Range Not estab lishe d Not Available [facility] [address], [place], [address], 10/27/2023 14:36:26 10/23/20 23 10/27/2023 MICRO ALBUM IN, RAND (UR/C REAT) albumin/crea tinine ratio, random urine 37 mcg/m g_cre at <30 high The ADA defin es abnor malit ies in album in excre tion as follo ws: Album inuri a Categ ory Resul t (mcg/ mg creat inine ) Pooja l to Mildl y incre ased <30 Moder ately incre ased 30-29 9 Sever richar incre ased > OR = 300 The ADA recom mends that at least two of three speci mens colle cted withi n a 3-6 month perio d be abnor mal befor e consi michael g a patie nt to be withi n a diagn ostic categ ory. Not Available [facility] [address], [place], [address], 10/27/2023 14:36:26 10/23/20 23 10/27/2023 REFLE XIVE URINE CULTU RE reflexive urine culture SEE NOTE CULTU RE INDIC ATED - RESUL TS TO FOLLO W Not Available [facility] [address], [place], [address], 10/27/2023 14:36:27 10/23/20 23 10/27/2023 CULTU RE, URINE , ROUTI NE culture, urine, routine SEE NOTE abnormal CULTU RE, URINE , ROUTI NE Micro Numbe r: [id number] Test Statu s: Final Speci men Sourc e: Urine Speci men Quali ty: Adequ ate Resul t: Great er than 100,0 00 CFU/m L of Esche kristen a coli E.col i ----- ----- ----- - INT RADHA AMOX/ CLAVU LANAT E S <=2 AMP/S ULBAC BAE S <=2 CEFAZ DERRELL NR <=4 2 CEFEP RUSSELL S <=0.1 2 CEFTA ZIDIM E S <=1 CEFTR IAXON E S <=0.2 5 CIPRO FLOXA DHEERAJ R >=4 GENTA MICIN S <=1 IMIPE NEM S <= 0.25 LEVOF LOXAC IN R >=8 MEROP ENEM S <=0.2 5 NITRO FURAN TOIN S <=16 PIP/T AZOBA CTAM S <=4 TRIME THOPR IM/VILLEGAS LFA R >=320 S=Kamryn cepti ble I=Int ermed iate R=Res istan t * = Not Teste d NR = Not Repor thierno NN = See Thera py Comme nts THERA PY COMME NTS Note 1: For infec tions other than uncom plica thierno UTI cause d by E. coli, K. pneum oniae or P. mirab ilis: Cefaz derrell is resis tant if RADHA > or = 8 mcg/m L. (Dist ingui shing susce ptibl e versu s inter media te for isola jacob with RADHA < or = 4 mcg/m L requi res addit ional testi ng.) Note 2: For uncom plica thierno UTI cause d by E. coli, K. pneum oniae or P. mirab ilis: Cefaz derrell is susce ptibl e if RADHA <32 mcg/m L and predi cts susce ptibl e to the oral agent s cefac mohit, cefdi colton, cefpo doxim e, cefpr ozil, cefur oxime , cepha lexin and lorac arbef . Not Available [facility] [address] [place], [address], 10/27/2023 14:36:28 10/23/20 23 10/30/2023 A1C hemoglobin A1C 7.0 %_of_ total _HGB <5.7 high For someo ne witho ut known diabe jacob, a hemog lobin A1c value of 6.5% or great er indic ates that they may have diabe jacob and this shoul d be confi rmed with a follo w-up test. For someo ne with known diabe jacob, a value <7% indic ates that their diabe jacob is well contr olled and a value great er than or equal to 7% indic ates subop timal contr ol. A1c targe ts shoul d be indiv idual ized based on durat ion of diabe jacob, age, comor bid condi tions , and other consi derat ions. Curre ntly, no conse nsus exist s kalee majano use of hemog lobin A1c for diagn osis of diabe jacob for child quintin. Not Available [email or web address] [address], [place], [address], 10/30/2023 11:44:03 10/23/20 23 10/30/2023 CBC W/ AUTOD IFF, COMPL ETE BLOOD COUNT white blood cell count 7.8 thous and/u L 3.8-10 .8 normal Not Available [email or web address] [address], [place], [address], 10/30/2023 11:44:04 10/23/20 23 10/30/2023 CBC W/ AUTOD IFF, COMPL ETE BLOOD COUNT red blood cell count 3.63 fiordaliza on/uL 4.20-5 .80 low Not Available [email or web address] [address] [place], [address], 10/30/2023 11:44:04 10/23/20 23 10/30/2023 CBC W/ AUTOD IFF, COMPL ETE BLOOD COUNT hemoglobin 10.4 g/dL 13.2-1 7.1 low Not Available [facility], [place], [address], 10/30/2023 11:44:04 10/23/20 23 10/30/2023 CBC W/ AUTOD IFF, COMPL ETE BLOOD COUNT hematocrit 31.2 % 38.5-5 0.0 low Not Available [facility] [address], [place], [address], 10/30/2023 11:44:04 10/23/20 23 10/30/2023 CBC W/ AUTOD IFF, COMPL ETE BLOOD COUNT MCV 86.0 fL 80.0-1 00.0 normal Not Available [facility] [address] [place] [address] [address], [place], [address], 10/30/2023 11:44:04 10/23/20 23 10/30/2023 CBC W/ AUTOD IFF, COMPL ETE BLOOD COUNT MCH 28.7 pg 27.0-3 3.0 normal Not Available [facility] [address] [place] [address] [address], [place], [address], 10/30/2023 11:44:04 10/23/20 23 10/30/2023 CBC W/ AUTOD IFF, COMPL ETE BLOOD COUNT MCHC 33.3 g/dL 32.0-3 6.0 normal Not Available [facility] [address], [place], [address], 10/30/2023 11:44:04 10/23/20 23 10/30/2023 CBC W/ AUTOD IFF, COMPL ETE BLOOD COUNT RDW 13.2 % 11.0-1 5.0 normal Not Available [facility], [place], [address], 10/30/2023 11:44:04 10/23/2010/30/2023 CBC W/ AUTOD IFF, COMPL ETE BLOOD COUNT platelet count 192 thous and/u L 140-40 0 normal Not Available [facility] [address], [place], [address], 10/30/2023 11:44:04 10/23/20 23 10/30/2023 CBC W/ AUTOD IFF, COMPL ETE BLOOD COUNT MPV 11.2 fL 7.5-12 .5 normal Not Available [facility] [address], [place], [address], 10/30/2023 11:44:04 10/23/20 23 10/30/2023 CBC W/ AUTOD IFF, COMPL ETE BLOOD COUNT absolute neutrophils 5008 cells /uL 1500-7 800 normal Not Available [facility], [place], [address], 10/30/2023 11:44:04 10/23/20 23 10/30/2023 CBC W/ AUTOD IFF, COMPL ETE BLOOD COUNT absolute lymphocytes 2028 cells /uL 850-39 00 normal Not Available [facility], [place], [address], 10/30/2023 11:44:04 10/23/20 23 10/30/2023 CBC W/ AUTOD IFF, COMPL ETE BLOOD COUNT absolute monocytes 679 cells /uL 200-95 0 normal Not Available [facility] [address], [place], [address], 10/30/2023 11:44:04 10/23/20 23 10/30/2023 CBC W/ AUTOD IFF, COMPL ETE BLOOD COUNT absolute eosinophils 47 cells /uL 15-500 normal Not Available [facility] [address], [place], [address], 10/30/2023 11:44:04 10/23/20 23 10/30/2023 CBC W/ AUTOD IFF, COMPL ETE BLOOD COUNT absolute basophils 39 cells /uL 0-200 normal Not Available [facility] [address], [place], [address], 10/30/2023 11:44:04 10/23/20 23 10/30/2023 CBC W/ AUTOD IFF, COMPL ETE BLOOD COUNT neutrophils 64.2 % normal Not Available [facility] [address], [place], [address], 10/30/2023 11:44:04 10/23/20 23 10/30/2023 CBC W/ AUTOD IFF, COMPL ETE BLOOD COUNT lymphocytes 26.0 % normal Not Available [facility] [address], [place], [address], 10/30/2023 11:44:04 10/23/20 23 10/30/2023 CBC W/ AUTOD IFF, COMPL ETE BLOOD COUNT monocytes 8.7 % normal Not Available [facility] [address], [place], [address], 10/30/2023 11:44:04 10/23/20 23 10/30/2023 CBC W/ AUTOD IFF, COMPL ETE BLOOD COUNT eosinophils 0.6 % normal Not Available [facility] [address], [place], [address], 10/30/2023 11:44:04 10/23/20 23 10/30/2023 CBC W/ AUTOD IFF, COMPL ETE BLOOD COUNT basophils 0.5 % normal Not Available [facility] [address], [place], [address], 10/30/2023 11:44:04 10/23/20 23 10/30/2023 CMP, COMPR EHENS RENEE METAB OLIC PANEL glucose 156 mg/dL 65-99 high Fasti ng refer ence inter justine For someo ne witho ut known diabe jacob, a gluco se value >125 mg/dL indic ates that they may have diabe jacob and this shoul d be confi rmed with a follo w-up test. Not Available [facility] [address] [facility] [address], [place], [address], 10/30/2023 11:44:05 10/23/20 23 10/30/2023 CMP, COMPR EHENS RENEE METAB OLIC PANEL urea nitrogen (BUN) 26 mg/dL 7-25 high Not Available [facility] [address] [facility] [address] [place], [address], 10/30/2023 11:44:05 10/23/20 23 10/30/2023 CMP, COMPR EHENS RENEE METAB OLIC PANEL creatinine 2.04 mg/dL 0.70-1 .28 high Not Available [facility] [address] [facility] [address] [facility], [place], [address], 10/30/2023 11:44:05 10/23/20 23 10/30/2023 CMP, COMPR EHENS RENEE METAB OLIC PANEL eGFR 34 mL/mi n/1.7 3m2 > or = 60 low Not Available [facility] [address] [facility] [address] [place], [address], 10/30/2023 11:44:05 10/23/20 23 10/30/2023 CMP, COMPR EHENS RENEE METAB OLIC PANEL BUN/creatini ne ratio 13 (calc ) 6-22 normal Not Available [facility] [address] [facility] [address] [place], [address], 10/30/2023 11:44:05 10/23/20 23 10/30/2023 CMP, COMPR EHENS RENEE METAB OLIC PANEL sodium 137 mmol/ L 135-14 6 normal Not Available [facility] [address] [facility] [address], [place], [address], 10/30/2023 11:44:05 10/23/20 23 10/30/2023 CMP, COMPR EHENS RENEE METAB OLIC PANEL potassium 4.1 mmol/ L 3.5-5. 3 normal Not Available [facility] [address] [facility] [address], [place], [address], 10/30/2023 11:44:05 10/23/20 23 10/30/2023 CMP, COMPR EHENS RENEE METAB OLIC PANEL chloride 103 mmol/ L 98-110 normal Not Available [facility] [address] [facility] [address], [place], [address], 10/30/2023 11:44:05 10/23/20 23 10/30/2023 CMP, COMPR EHENS RENEE METAB OLIC PANEL carbon dioxide 22 mmol/ L 20-32 normal Not Available [facility] [facility] [address], [place], [address], 10/30/2023 11:44:05 10/23/20 23 10/30/2023 CMP, COMPR EHENS RENEE METAB OLIC PANEL calcium 9.3 mg/dL 8.6-10 .3 normal Not Available [facility] [address] [facility] [address], [place], [address], 10/30/2023 11:44:05 10/23/20 23 10/30/2023 CMP, COMPR EHENS RENEE METAB OLIC PANEL protein, total 6.5 g/dL 6.1-8. 1 normal Not Available [facility] [address], [place], [address], 10/30/2023 11:44:05 10/23/20 23 10/30/2023 CMP, COMPR EHENS RENEE METAB OLIC PANEL albumin 3.9 g/dL 3.6-5. 1 normal Not Available [facility] [address] [facility] [address], [place], [address], 10/30/2023 11:44:05 10/23/20 23 10/30/2023 CMP, COMPR EHENS RENEE METAB OLIC PANEL globulin 2.6 g/dL_ (calc ) 1.9-3. 7 normal Not Available [facility] [address], [place], [address], 10/30/2023 11:44:05 10/23/20 23 10/30/2023 CMP, COMPR EHENS RENEE METAB OLIC PANEL albumin/glob ulin ratio 1.5 (calc ) 1.0-2. 5 normal Not Available [facility] [address] [place] [address] [address], [place], [address], 10/30/2023 11:44:05 10/23/20 23 10/30/2023 CMP, COMPR EHENS RENEE METAB OLIC PANEL bilirubin, total 0.5 mg/dL 0.2-1. 2 normal Not Available [facility] [address] [place] [address] [address], [place], [address], 10/30/2023 11:44:05 10/23/20 23 10/30/2023 CMP, COMPR EHENS RENEE METAB OLIC PANEL alkaline phosphatase 74 U/L 35-144 normal Not Available [facility] [address] [place] [address] [address], [place], [address], 10/30/2023 11:44:05 10/23/20 23 10/30/2023 CMP, COMPR EHENS RENEE METAB OLIC PANEL AST 16 U/L 10-35 normal Not Available [facility] [address] [place] [address] [address], [place], [address], 10/30/2023 11:44:05 10/23/2010/30/2023 CMP, COMPR EHENS RENEE METAB OLIC PANEL ALT 13 U/L 9-46 normal Not Available [facility] [address] [facility] [address], [place], [address], 10/30/2023 11:44:05 10/23/20 23 10/30/2023 LIPID PANEL W/ CALCU LATED LDL cholesterol, total 246 mg/dL <200 high Not Available [facility] [address] [facility] [address], [place], [address], 10/30/2023 11:44:06 10/23/20 23 10/30/2023 LIPID PANEL W/ CALCU LATED LDL HDL cholesterol 64 mg/dL > or = 40 normal Not Available [facility] [address] [facility] [address], [place], [address], 10/30/2023 11:44:06 10/23/20 23 10/30/2023 LIPID PANEL W/ CALCU LATED LDL triglyceride s 186 mg/dL <150 high Not Available [facility] [address], [place], [address], 10/30/2023 11:44:06 10/23/20 23 10/30/2023 LIPID PANEL W/ CALCU LATED LDL LDL-choleste rol 150 mg/dL _(felicity c) high Refer ence range : <100 Bianca able range <100 mg/dL for prima ry preve ntion ; <70 mg/dL for patie nts with CHD or diabe tic patie nts with > or = 2 CHD risk facto rs. LDL-C is now calcu lated using the Maile n-Hop kins calcu latlyle n, which is a valid ated novel metho d mirella domingo r accur acy than the Fried jim equat ion in the estim ation of LDL-C . Maile n SS et al. PUNEET. 2013; 310(1 9): 2061- 2068 (http ://ed vlad on.Qu Alfredito kelseyzerobound. com/f aq/FA Q164) Not Available [facility] [address], [place], [address], 10/30/2023 11:44:06 10/23/20 23 10/30/2023 LIPID PANEL W/ CALCU LATED LDL chol/HDLC ratio 3.8 (calc ) <5.0 normal Not Available [facility] [address], [place], [address], 10/30/2023 11:44:06 10/23/20 23 10/30/2023 LIPID PANEL W/ CALCU LATED LDL non HDL cholesterol 182 mg/dL _(felicity c) <130 high For patie nts with diabe jacob plus 1 major ASCVD risk facto r, treat ing to a non-H DL-C goal of <100 mg/dL (LDL- C of <70 mg/dL ) is consi janed a diamond diego n. Not Available [facility] [address], [place], [address], 10/30/2023 11:44:06 10/23/20 23 10/30/2023 TESTO STERO NE, FREE AND TOTAL , LC/MS /MS testosterone , total, MS 36 NG/dL 250-11 00 low Men with clini lucian signi fican t hypog onada l sympt oms and testo stero ne value s repea tedly in the range of the 200-3 00 ng/dL or less, may benef it from testo stero ne treat ment after adequ ate risk and benef its couns eling . For addit ional infor arsenio ugarte e refer to http: //jeovanny berg.que stdia gnost ics.c om/fa q/ Total Testo stero neLCM [facility] CENTERFA Q165 (This link is being provi ded for infor matio nal/ educa dieter l purpo ses only. ) This test was devel oped and its holden tical perfo rmanc e christiana cteri stics have been deter mined by [employer] ostic s [place] [place], [place]. It has not been clear ed or appro niurka by the U.S. Food and Drug Admin istra tion. This assay has been valid ated pursu ant to the CLIA regul ation s and is used for clini felicity purpo ses. Not Available [facility] [address], [place], [address], 10/30/2023 11:44:08 10/23/20 23 10/30/2023 TESTO STERO NE, FREE AND TOTAL , LC/MS /MS testosterone , free 7.5 pg/mL 30.0-1 35.0 low This test was devel oped and its holden tical perfo rmanc e christiana cteri stics have been deter mined by [employer] ostic s [employer] [place], [place]. It has not been clear ed or appro niurka by the U.S. Food and Drug Admin istra tion. This assay has been valid ated pursu ant to the CLIA regul ation s and is used for clini felicity purpo ses. Not Available [facility] [address] [place], [address], 10/30/2023 11:44:08 10/23/2010/30/2023 PSA SCREE N PSA, total 0.20 NG/mL < or = 4.00 normal The total PSA value from this assay syste m is stand ardiz ed again st the WHO stand anupama. The test resul t will be appro ximat richar 20% lower when rama red to the equim olar- stand ardiz ed total PSA (Lewis man Coult er). Rama rison of seria l PSA resul ts shoul d be inter prete d with this fact in mind. This test was perfo rmed using the Sieme ns chemi lumin escen t metho d. Value s obtai cesar from diffe rent assay metho ds canno t be used inter dawson eably . PSA level s, regar dless of value , shoul d not be inter prete d as absol kandis evide nce of the prese nce or absen ce of disea se. Not Available [facility] [address], [place], [address], 10/30/2023 11:44:09 10/23/20 23 10/30/2023 SPEP, PROTE IN, TOTAL AND PROTE IN ELECT ROPHO RESIS protein, total 6.5 g/dL 6.1-8. 1 normal Not Available [facility] [address], [place], [address], 10/30/2023 11:44:10 10/23/20 23 10/30/2023 SPEP, PROTE IN, TOTAL AND PROTE IN ELECT ROPHO RESIS albumin 3.6 g/dL 3.8-4. 8 low Not Available [facility] [address], [place], [address], 10/30/2023 11:44:10 10/23/20 23 10/30/2023 SPEP, PROTE IN, TOTAL AND PROTE IN ELECT ROPHO RESIS alpha 1 globulin 0.5 g/dL 0.2-0. 3 high Not Available [facility] [address], [place], [address], 10/30/2023 11:44:10 10/23/20 23 10/30/2023 SPEP, PROTE IN, TOTAL AND PROTE IN ELECT ROPHO RESIS alpha 2 globulin 1.0 g/dL 0.5-0. 9 high Not Available [facility] [address], [place], [address], 10/30/2023 11:44:10 10/23/20 23 10/30/2023 SPEP, PROTE IN, TOTAL AND PROTE IN ELECT ROPHO RESIS beta 1 globulin 0.5 g/dL 0.4-0. 6 normal Not Available [facility] [address] [facility] [address], [place], [address], 10/30/2023 11:44:10 10/23/20 23 10/30/2023 SPEP, PROTE IN, TOTAL AND PROTE IN ELECT ROPHO RESIS beta 2 globulin 0.3 g/dL 0.2-0. 5 normal Not Available [facility] [address] [facility] [address], [place], [address], 10/30/2023 11:44:10 10/23/20 23 10/30/2023 SPEP, PROTE IN, TOTAL AND PROTE IN ELECT ROPHO RESIS gamma globulin 0.7 g/dL 0.8-1. 7 low Not Available [facility] [address] [facility] [address], [place], [address], 10/30/2023 11:44:10 10/23/20 23 10/30/2023 SPEP, PROTE IN, TOTAL AND PROTE IN ELECT ROPHO RESIS interpretati on SEE NOTE Evalu ation is consi stent with an acute infla mmato joel oshea rn. Consi stent with hypog ammag lobul inemi a. Serum free light chain s or urine immun ofixa tion shoul d be consi dered if plasm a cell dyscr asias are a possi ble clini felicity diagn osis. Not Available [facility] [address] [facility] [address], [place], [address], 10/30/2023 11:44:10 10/23/20 23 10/23/2023 VENIP UNCTU RE results Compl ete Not Available [facility] [address] [facility] [address], [place], [address], 10/23/2023 08:26:09 12/16/19 24 12/17/2023 BMP, BASIC METAB OLIC PANEL glucose 151 mg/dL 65-99 high Fasti ng refer ence inter justine For someo ne witho ut known diabe jacob, a gluco se value >125 mg/dL indic ates that they may have diabe jacob and this shoul d be confi rmed with a follo w-up test. Not Available [email or web address] [address] [facility] [address], [place], [address], 12/17/2023 09:36:11 12/16/19 24 12/17/2023 BMP, BASIC METAB OLIC PANEL urea nitrogen (BUN) 39 mg/dL 7-25 high Not Available [facility] [address] [facility] [address], [place], [address], 12/17/2023 09:36:11 12/16/19 24 12/17/2023 BMP, BASIC METAB OLIC PANEL creatinine 1.68 mg/dL 0.70-1 .28 high Not Available [email or web address] [address] [facility] [address], [place], [address], 12/17/2023 09:36:11 12/16/19 24 12/17/2023 BMP, BASIC METAB OLIC PANEL eGFR 43 mL/mi n/1.7 3m2 > or = 60 low Not Available [email or web address] [address] [facility] [address] [place], [address], 12/17/2023 09:36:11 12/16/19 24 12/17/2023 BMP, BASIC METAB OLIC PANEL BUN/creatini ne ratio 23 (calc ) 6-22 high Not Available [facility] [address] [facility] [address], [place], [address], 12/17/2023 09:36:11 12/16/19 24 12/17/2023 BMP, BASIC METAB OLIC PANEL sodium 137 mmol/ L 135-14 6 normal Not Available [email or web address] [address] [facility] [address], [place], [address], 12/17/2023 09:36:11 12/16/19 24 12/17/2023 BMP, BASIC METAB OLIC PANEL potassium 4.3 mmol/ L 3.5-5. 3 normal Not Available [facility] [address] [facility] [address], [place], [address], 12/17/2023 09:36:11 12/16/19 24 12/17/2023 BMP, BASIC METAB OLIC PANEL chloride 104 mmol/ L 98-110 normal Not Available [facility] [address] [facility] [address], [place], [address], 12/17/2023 09:36:11 12/16/19 24 12/17/2023 BMP, BASIC METAB OLIC PANEL carbon dioxide 23 mmol/ L 20-32 normal Not Available [facility] [address] [facility] [address], [place], [address], 12/17/2023 09:36:11 12/16/19 24 12/17/2023 BMP, BASIC METAB OLIC PANEL calcium 9.4 mg/dL 8.6-10 .3 normal Not Available [facility] [address] [facility] [address], [place], [address], 12/17/2023 09:36:11 12/16/19 24 12/17/2023 LIPID PANEL W/ CALCU LATED LDL cholesterol, total 268 mg/dL <200 high Not Available [facility] [address] [facility] [address], [place], [address], 12/17/2023 09:36:12 12/16/19 24 12/17/2023 LIPID PANEL W/ CALCU LATED LDL HDL cholesterol 60 mg/dL > or = 40 normal Not Available [facility] [address] [facility] [address], [place], [address], 12/17/2023 09:36:12 12/16/19 24 12/17/2023 LIPID PANEL W/ CALCU LATED LDL triglyceride s 328 mg/dL <150 high If a non-f astin g speci men was colle cted, consi baudilio repea t trigl yceri de testi ng on a fasti ng speci men if clini lucian indic ated. Anup jo et al. J. of Clin. Lipid ol. 2015; 9:129 -169. Not Available [facility] [address], [place], [address], 12/17/2023 09:36:12 12/16/19 24 12/17/2023 LIPID PANEL W/ CALCU LATED LDL LDL-choleste rol 158 mg/dL _(felicity c) high Refer ence range : <100 Bianca able range <100 mg/dL for prima ry preve ntion ; <70 mg/dL for patie nts with CHD or diabe tic patie nts with > or = 2 CHD risk facto rs. LDL-C is now calcu lated using the Maile n-Hop kins calcu latio n, which is a valid ated novel pricillao d mirella henaote r accur acy than the Fried jim equat ion in the estim ation of LDL-C . Maile berg SS et al. PUNEET. 2013; 310(1 9): 2061- 2068 (http ://ed ucati on.Qu meronSiVerion. com/f aq/FA Q164) Not Available [email or web address] [address], [place], [address], 12/17/2023 09:36:12 12/16/19 24 12/17/2023 LIPID PANEL W/ CALCU LATED LDL chol/HDLC ratio 4.5 (calc ) <5.0 normal Not Available [facility] [address], [place], [address], 12/17/2023 09:36:12 12/16/19 24 12/17/2023 LIPID PANEL W/ CALCU LATED LDL non HDL cholesterol 208 mg/dL _(felicity c) <130 high For patie nts with diabe jacob plus 1 major ASCVD risk facto r, treat ing to a non-H DL-C goal of <100 mg/dL (LDL- C of <70 mg/dL ) is consi angelina castañeda optio n. Not Available [facility] [address] [facility] [address], [place], [address], 12/17/2023 09:36:12 12/16/19 24 12/16/2023 VENIP UNCTU RE results Compl ete Not Available [facility] [address] [facility] [address], [place], [address], 12/16/2023 10:17:29 11/09/19 25 11/10/2024 A1C hemoglobin A1C 6.9 %_of_ total _HGB <5.7 high For someo ne witho ut known diabe jacob, a hemog lobin A1c value of 6.5% or great er indic ates that they may have diabe jacob and this shoul d be confi rmed with a follo w-up test. For someo ne with known diabe jacob, a value <7% indic ates that their diabe jacob is well contr olled and a value great er than or equal to 7% indic ates subop timal contr ol. A1c targe ts shoul d be indiv idual ized based on durat ion of diabe jacob, age, comor bid condi tions , and other consi derat ions. Curre ntly, no conse nsus exist s kalee majano use of hemog lobin A1c for diagn osis of diabe jacob for child quintin. Not Available [facility] [address], [place], [address], 11/11/2024 00:03:35 11/09/19 25 11/10/2024 CBC W/ AUTOD IFF, COMPL ETE BLOOD COUNT white blood cell count 6.1 thous and/u L 3.8-10 .8 normal Not Available [facility] [address], [place], [address], 11/11/2024 00:03:35 11/09/1911/10/2024 CBC W/ AUTOD IFF, COMPL ETE BLOOD COUNT red blood cell count 4.67 fiordaliza on/uL 4.20-5 .80 normal Not Available [facility] [address], [place], [address], 11/11/2024 00:03:35 11/09/1911/10/2024 CBC W/ AUTOD IFF, COMPL ETE BLOOD COUNT hemoglobin 12.7 g/dL 13.2-1 7.1 low Not Available [facility] [address], [place], [address], 11/11/2024 00:03:35 11/09/1911/10/2024 CBC W/ AUTOD IFF, COMPL ETE BLOOD COUNT hematocrit 39.2 % 38.5-5 0.0 normal Not Available [facility] [address], [place], [address], 11/11/2024 00:03:35 11/09/1911/10/2024 CBC W/ AUTOD IFF, COMPL ETE BLOOD COUNT MCV 83.9 fL 80.0-1 00.0 normal Not Available [facility] [address], [place], [address], 11/11/2024 00:03:35 11/09/1911/10/2024 CBC W/ AUTOD IFF, COMPL ETE BLOOD COUNT MCH 27.2 pg 27.0-3 3.0 normal Not Available [facility] [address], [place], [address], 11/11/2024 00:03:35 11/09/1911/10/2024 CBC W/ AUTOD IFF, COMPL ETE BLOOD COUNT MCHC 32.4 g/dL 32.0-3 6.0 normal For adult s, a sligh t decre ase in the calcu lated MCHC value (in the range of 30 to 32 g/dL) is most likel y not clini lucian signi katja t; howev er, it shoul d be inter prete d with cauti on in corre latio n with other red cell jose luis eters and the patie nt's clini felicity condi tion. Not Available [facility] [address], [place], [address], 11/11/2024 00:03:35 11/09/1911/10/2024 CBC W/ AUTOD IFF, COMPL ETE BLOOD COUNT RDW 14.5 % 11.0-1 5.0 normal Not Available [facility] [address], [place], [address], 11/11/2024 00:03:35 11/09/19 25 11/10/2024 CBC W/ AUTOD IFF, COMPL ETE BLOOD COUNT platelet count 217 thous and/u L 140-40 0 normal Not Available [facility] [address], [place], [address], 11/11/2024 00:03:35 11/09/19 25 11/10/2024 CBC W/ AUTOD IFF, COMPL ETE BLOOD COUNT MPV 10.9 fL 7.5-12 .5 normal Not Available [facility] [address], [place], [address], 11/11/2024 00:03:35 11/09/19 25 11/10/2024 CBC W/ AUTOD IFF, COMPL ETE BLOOD COUNT absolute neutrophils 2751 cells /uL 1500-7 800 normal Not Available [facility] [address], [place], [address], 11/11/2024 00:03:35 11/09/19 25 11/10/2024 CBC W/ AUTOD IFF, COMPL ETE BLOOD COUNT absolute lymphocytes 2635 cells /uL 850-39 00 normal Not Available [facility] [address], [place], [address], 11/11/2024 00:03:35 11/09/19 25 11/10/2024 CBC W/ AUTOD IFF, COMPL ETE BLOOD COUNT absolute monocytes 390 cells /uL 200-95 0 normal Not Available [facility] [address], [place], [address], 11/11/2024 00:03:35 11/09/19 25 11/10/2024 CBC W/ AUTOD IFF, COMPL ETE BLOOD COUNT absolute eosinophils 262 cells /uL 15-500 normal Not Available [facility], [place], [address], 11/11/2024 00:03:35 11/09/1911/10/2024 CBC W/ AUTOD IFF, COMPL ETE BLOOD COUNT absolute basophils 61 cells /uL 0-200 normal Not Available [facility], [place], [address], 11/11/2024 00:03:35 11/09/1911/10/2024 CBC W/ AUTOD IFF, COMPL ETE BLOOD COUNT neutrophils 45.1 % normal Not Available [facility] [address], [place], [address], 11/11/2024 00:03:35 11/09/19 25 11/10/2024 CBC W/ AUTOD IFF, COMPL ETE BLOOD COUNT lymphocytes 43.2 % normal Not Available [facility] [address], [place], [address], 11/11/2024 00:03:35 11/09/19 25 11/10/2024 CBC W/ AUTOD IFF, COMPL ETE BLOOD COUNT monocytes 6.4 % normal Not Available [facility] [address], [place], [address], 11/11/2024 00:03:35 11/09/1911/10/2024 CBC W/ AUTOD IFF, COMPL ETE BLOOD COUNT eosinophils 4.3 % normal Not Available [facility] [address], [place], [address], 11/11/2024 00:03:35 11/09/1911/10/2024 CBC W/ AUTOD IFF, COMPL ETE BLOOD COUNT basophils 1.0 % normal Not Available [facility] [address] [facility] [address], [place], [address], 11/11/2024 00:03:35 11/09/1911/10/2024 CMP, COMPR EHENS RENEE METAB OLIC PANEL glucose 131 mg/dL 65-99 high Fasti ng refer ence inter justine For someo ne witho ut known diabe jacob, a gluco se value >125 mg/dL indic ates that they may have diabe jacob and this shoul d be confi rmed with a follo w-up test. Not Available [facility] [address] [facility] [address], [place], [address], 11/11/2024 00:03:36 11/09/1911/10/2024 CMP, COMPR EHENS RENEE METAB OLIC PANEL urea nitrogen (BUN) 28 mg/dL 7-25 high Not Available [facility] [address], [place], [address], 11/11/2024 00:03:36 11/09/19 25 11/10/2024 CMP, COMPR EHENS RENEE METAB OLIC PANEL creatinine 1.75 mg/dL 0.70-1 .28 high Not Available [facility] [address] [facility] [address], [place], [address], 11/11/2024 00:03:36 11/09/19 25 11/10/2024 CMP, COMPR EHENS RENEE METAB OLIC PANEL eGFR 40 mL/mi n/1.7 3m2 > or = 60 low Not Available [facility] [address] [facility] [address], [place], [address], 11/11/2024 00:03:36 11/09/1911/10/2024 CMP, COMPR EHENS RENEE METAB OLIC PANEL BUN/creatini ne ratio 16 (calc ) 6-22 normal Not Available [facility] [address] [facility] [address], [place], [address], 11/11/2024 00:03:36 11/09/1911/10/2024 CMP, COMPR EHENS RENEE METAB OLIC PANEL sodium 139 mmol/ L 135-14 6 normal Not Available [facility] [facility] [address], [place], [address], 11/11/2024 00:03:36 11/09/1911/10/2024 CMP, COMPR EHENS RENEE METAB OLIC PANEL potassium 5.0 mmol/ L 3.5-5. 3 normal Not Available [facility] [address] [facility] [address], [place], [address], 11/11/2024 00:03:36 11/09/1911/10/2024 CMP, COMPR EHENS RENEE METAB OLIC PANEL chloride 104 mmol/ L 98-110 normal Not Available [facility] [address], [place], [address], 11/11/2024 00:03:36 11/09/19 25 11/10/2024 CMP, COMPR EHENS RENEE METAB OLIC PANEL carbon dioxide 25 mmol/ L 20-32 normal Not Available [facility] [facility] [address], [place], [address], 11/11/2024 00:03:36 11/09/19 25 11/10/2024 CMP, COMPR EHENS RENEE METAB OLIC PANEL calcium 9.3 mg/dL 8.6-10 .3 normal Not Available [facility] [facility] [address], [place], [address], 11/11/2024 00:03:36 11/09/1911/10/2024 CMP, COMPR EHENS RENEE METAB OLIC PANEL protein, total 6.6 g/dL 6.1-8. 1 normal Not Available [facility] [address], [place], [address], 11/11/2024 00:03:36 11/09/19 25 11/10/2024 CMP, COMPR EHENS RENEE METAB OLIC PANEL albumin 4.2 g/dL 3.6-5. 1 normal Not Available [facility] [address] [place] [address] [address], [place], [address], 11/11/2024 00:03:36 11/09/19 25 11/10/2024 CMP, COMPR EHENS RENEE METAB OLIC PANEL globulin 2.4 g/dL_ (calc ) 1.9-3. 7 normal Not Available [facility] [address] [place] [address] [address], [place], [address], 11/11/2024 00:03:36 11/09/1911/10/2024 CMP, COMPR EHENS RENEE METAB OLIC PANEL albumin/glob ulin ratio 1.8 (calc ) 1.0-2. 5 normal Not Available [facility] [address] [place] [address] [address], [place], [address], 11/11/2024 00:03:36 11/09/19 25 11/10/2024 CMP, COMPR EHENS RENEE METAB OLIC PANEL bilirubin, total 0.4 mg/dL 0.2-1. 2 normal Not Available [facility] [address], [place], [address], 11/11/2024 00:03:36 11/09/1911/10/2024 CMP, COMPR EHENS RENEE METAB OLIC PANEL alkaline phosphatase 94 U/L 35-144 normal Not Available [facility] [address], [place], [address], 11/11/2024 00:03:36 11/09/1911/10/2024 CMP, COMPR EHENS RENEE METAB OLIC PANEL AST 11 U/L 10-35 normal Not Available [facility] [address] [facility] [address], [place], [address], 11/11/2024 00:03:36 11/09/1911/10/2024 CMP, COMPR EHENS RENEE METAB OLIC PANEL ALT 12 U/L 9-46 normal Not Available [facility] [address] [facility] [address], [place], [address], 11/11/2024 00:03:36 11/09/1911/10/2024 LIPID PANEL W/ CALCU LATED LDL cholesterol, total 144 mg/dL <200 normal Not Available [facility] [address], [place], [address], 11/11/2024 00:03:37 11/09/1911/10/2024 LIPID PANEL W/ CALCU LATED LDL HDL cholesterol 49 mg/dL > or = 40 normal Not Available [facility] [address], [place], [address], 11/11/2024 00:03:37 11/09/1911/10/2024 LIPID PANEL W/ CALCU LATED LDL triglyceride s 156 mg/dL <150 high Not Available [facility] [address] [place], [address], 11/11/2024 00:03:37 11/09/19 25 11/10/2024 LIPID PANEL W/ CALCU LATED LDL LDL-choleste rol 72 mg/dL _(felicity c) normal Refer ence range : <100 Bianca able range <100 mg/dL for prima ry preve ntion ; <70 mg/dL for patie nts with CHD or diabe tic patie nts with > or = 2 CHD risk facto rs. LDL-C is now calcu lated using the Maile n-Hop kins calcu thien n, which is a valid ated novel metho d provi ding chayo r accur acy than the Fried jim equat ion in the estim ation of LDL-C . Maile berg SS et al. PUNEET. 2013; 310(1 9): 2061- 2068 (http ://ed ucati on.Qu meronSiVerion. com/f aq/FA Q164) Not Available [facility] [address] [facility] [address] [place], [address], 11/11/2024 00:03:37 11/09/19 25 11/10/2024 LIPID PANEL W/ CALCU LATED LDL chol/HDLC ratio 2.9 (calc ) <5.0 normal Not Available [facility] [address] [facility] [address] [place], [address], 11/11/2024 00:03:37 11/09/19 25 11/10/2024 LIPID PANEL W/ CALCU LATED LDL non HDL cholesterol 95 mg/dL _(felicity c) <130 normal For patie nts with diabe jacob plus 1 major ASCVD risk facto r, treat ing to a non-H DL-C goal of <100 mg/dL (LDL- C of <70 mg/dL ) is consi dered a thera peuti c optio n. Not Available [facility] [address] [place], [address], 11/11/2024 00:03:37 11/09/19 25 11/10/2024 PSA SCREE N PSA, total 1.47 NG/mL < or = 4.00 normal The total PSA value from this assay syste m is stand ardiz ed again st the WHO stand anupama. The test resul t will be appro ximat richar 20% lower when rama red to the equim olar- stand ardiz ed total PSA (Lewis man Coult er). Rama rison of seria l PSA resul ts shoul d be inter prete d with this fact in mind. This test was perfo rmed using the Transmension chemi lumin escen t metho d. Value s obtai cesar from diffe rent assay metho ds canno t be used inter dawson eably . PSA level s, regar dless of value , shoul d not be inter prete d as absol kandis evide nce of the prese nce or absen ce of disea se. Not Available [facility] [address] [place], [address], 11/11/2024 00:03:37 11/09/19 25 11/10/2024 TSH, THYRO ID STIMU LATIN G HORMO NE TSH 1.57 mIU/L 0.40-4 .50 normal Not Available [facility] [address] [facility] [address], [place], [address], 11/11/2024 00:03:38 11/09/19 25 11/12/2024 URINA LYSIS , COMPL ETE W/ REFLE X TO CULTU RE color YELLOW yellow normal Not Available [facility] [address] [place], [address], 11/12/2024 20:01:11 11/09/19 25 11/12/2024 URINA LYSIS , COMPL ETE W/ REFLE X TO CULTU RE appearance CLEAR clear normal Not Available [facility] [address], [place], [address], 11/12/2024 20:01:11 11/09/19 25 11/12/2024 URINA LYSIS , COMPL ETE W/ REFLE X TO CULTU RE specific gravity 1.013 1.001- 1.035 normal Not Available [facility] [address] [place], [place] [address]y [address], [place], [address], 11/12/2024 20:01:11 11/09/19 25 11/12/2024 URINA LYSIS , COMPL ETE W/ REFLE X TO CULTU RE pH 6.5 5.0-8. 0 normal Not Available [facility] [address] [place], [place] [address]y [address], [place], [address], 11/12/2024 20:01:11 11/09/19 25 11/12/2024 URINA LYSIS , COMPL ETE W/ REFLE X TO CULTU RE glucose NEGATI VE negati ve normal Not Available [facility] [address] [place], [place] [address]y [address], [place], [address], 11/12/2024 20:01:11 11/09/19 25 11/12/2024 URINA LYSIS , COMPL ETE W/ REFLE X TO CULTU RE bilirubin NEGATI VE negati ve normal Not Available [facility] [address] [place], [place] [address]y [address], [place], [address], 11/12/2024 20:01:11 11/09/19 25 11/12/2024 URINA LYSIS , COMPL ETE W/ REFLE X TO CULTU RE ketones NEGATI VE negati ve normal Not Available [facility] [address] [place], [place] [address]y [address], [place], [address], 11/12/2024 20:01:11 11/09/19 25 11/12/2024 URINA LYSIS , COMPL ETE W/ REFLE X TO CULTU RE occult blood NEGATI VE negati ve normal Not Available [facility] [address] [place], [place] [address]y [address], [place], [address], 11/12/2024 20:01:11 11/09/19 25 11/12/2024 URINA LYSIS , COMPL ETE W/ REFLE X TO CULTU RE protein TRACE negati ve abnormal Not Available [facility] [address] [place], [place] [address]y [address], [place], [address], 11/12/2024 20:01:11 11/09/19 25 11/12/2024 URINA LYSIS , COMPL ETE W/ REFLE X TO CULTU RE nitrite NEGATI VE negati ve normal Not Available [facility] [address] [place] [address] [address], [place], [address], 11/12/2024 20:01:11 11/09/19 25 11/12/2024 URINA LYSIS , COMPL ETE W/ REFLE X TO CULTU RE leukocyte esterase 2+ negati ve abnormal Not Available [facility] [address] [place] [address] [address], [place], [address], 11/12/2024 20:01:11 11/09/19 25 11/12/2024 URINA LYSIS , COMPL ETE W/ REFLE X TO CULTU RE WBC > OR = 60 /hpf < or = 5 abnormal Not Available [facility] [address] [place] [address] [address], [place], [address], 11/12/2024 20:01:11 11/09/19 25 11/12/2024 URINA LYSIS , COMPL ETE W/ REFLE X TO CULTU RE RBC NONE SEEN /hpf < or = 2 normal Not Available [facility] [address] [place], [place] [address]y [address], [place], [address], 11/12/2024 20:01:11 11/09/19 25 11/12/2024 URINA LYSIS , COMPL ETE W/ REFLE X TO CULTU RE squamous epithelial cells NONE SEEN /hpf < or = 5 normal Not Available [facility] [address] [facility] [address], [place], [address], 11/12/2024 20:01:11 11/09/19 25 11/12/2024 URINA LYSIS , COMPL ETE W/ REFLE X TO CULTU RE bacteria FEW /hpf none seen abnormal Not Available [facility] [address] [facility] [address], [place], [address], 11/12/2024 20:01:11 11/09/19 25 11/12/2024 URINA LYSIS , COMPL ETE W/ REFLE X TO CULTU RE hyaline cast NONE SEEN /lpf none seen normal Not Available [facility] [address] [facility] [address], [place], [address], 11/12/2024 20:01:11 11/09/19 25 11/12/2024 URINA LYSIS , COMPL ETE W/ REFLE X TO CULTU RE note SEE NOTE This urine was holden zed for the prese nce of WBC, RBC, bacte yahir, casts , and other forme d eleme nts. Only those eleme nts seen were repor thierno. Not Available [facility] [address] [place], [place] [address]y [address], [place], [address], 11/12/2024 20:01:11 11/09/19 25 11/12/2024 URINA LYSIS , COMPL ETE W/ REFLE X TO CULTU RE reflexive urine culture SEE NOTE CULTU RE INDIC ATED - RESUL TS TO FOLLO W Not Available [facility] [address] [facility] [address], [place], [address], 11/12/2024 20:01:11 11/09/19 25 11/12/2024 CULTU RE, URINE , ROUTI NE culture, urine, routine SEE NOTE CULTU RE, URINE , ROUTI NE Micro Numbe r: [id number] Test Statu s: Final Speci men Sourc e: Urine Speci men Quali ty: Adequ ate Resul t: Mixed genit al ginny isola thierno. These super ficia l bacte yahir are not indic ative of a urina ry tract infec tion. No furth er organ ism ident ifica tion is warra nted on this speci men. If clini lucian indic ated, recol lect clean -catc h, mid-s tream urine and trans trevin immed iatel y to Urine Cultu re Trans port Tube. Not Available [facility] [address] [facility] [address], [place], [address], 11/12/2024 20:01:12 11/09/19 25 11/09/2024 VENIP UNCTU RE results Compl ete Not Available [facility] [address] [facility] [address] [place], [address], 11/09/2024 10:47:33 10/31/19 25 elect charito jansen am No observ ation record ed. [email or web address] Not Available 03/2025 12:44:12 Result Notes None recorded. Problems Name Problem SNOMED Code Status Onset Date Resolution Date Notes Provider Name and Address Organization Details Recorded Time Chronic kidney disease stage 3 due to type 2 diabetes mellitus 948648936924 Completed 202310/28/2024 Jade landaverde [place] - [facility], [facility] 16:49:22 Gastroeso phageal reflux disease without esophagit is 190619801 Completed 202310/28/2024 Jade landaverde [place] - [facility], [facility] 16:49:22 Essential hypertens ion 60424843 Completed 202310/28/2024 MAURILIO MYERS R, [facility] [address], [place], [address], [facility] - [facility], [facility] 12:45:51 Benign prostatic hyperplas ia with outflow obstructi on 178645577 Completed 202310/28/2024 [facility] 16:49:22 Chronic kidney disease stage 3B 723240599 Completed 202310/28/2024 MAURILIO Tsai [employer] [address], [place], [address], [facility], [facility] 20:04:34 Male hypogonad ism 95099177 Completed 202310/28/2024 [facility] 16:49:22 Testicula r hypofunct ion 064988028 Active 2024 MAURILIO Tsai [employer] [address], [place], [address], [facility], [facility] 12:45:41 Stomatiti s 42659646 Active 2024 MAURILIO Tsai [employer] [address], [place], [address], [facility], [facility] 12:45:48 Essential hypertens ion 50771623 Active 2024 MAURILIO Tsai [employer] [address], [place], [address], [facility], [facility] 5 12:45:51 Gingival disease 02108718 Active 2024 MAURILIO Tsai [employer] [address], [place], [address], [facility], [facility] 12:46:01 Obstructi ve sleep apnea syndrome 94629170 Active 2024 MAURILIO Tsai [employer] [address], [place], [address], [facility], [facility] 5 20:04:17 Chronic kidney disease stage 3B 574521747 Active 2024 MAURILIO Tsai, [employer] [address], [place], [address], [facility], [facility] 5 20:04:34 History of orchiecto my 930773760 Active 2024 MAURILIO Tsai, [employer] [address], [place], [address], [facility], [facility] 5 20:04:49 Hyperlipi demia 68728910 Active 2024 MAURILIO Tsai, [employer] [address], [place], [address], [facility], [facility] 5 20:04:51 Allergic rhinitis 76792591 Active 2024 MAURILIO Tsai, [employer] [address], [place], [address], [facility], [facility] 5 20:04:54 Type 2 diabetes mellitus without complicat ion 587744945 Active 2024 MAURILIO Tsai, THIRD [employer]OOK [address], [place], [address], [facility], [facility] 20:05:28 Notes:Some problems listed i n Document: #[id number] could not be added to this patient's chart. Please review this document and add these problems to the patient's chart manually as needed. Problem Notes None recorded. Procedures Surgical History Date Name Laterality Status Provider Name and Address Organization Details Recorded Time 11/14/19 25 Quality Advanced Care Planning completed [facility] 11/14/2024 09:06:15 11/14/19 25 Quality Incontinence Screening completed [facility], [facility] 11/14/2024 09:06:15 11/14/19 25 Medicare AWV Subsequent completed [facility], [facility] 11/14/2024 09:06:15 11/04/19 24 Quality Functional Assessment completed [facility] 11/03/2023 15:28:56 11/04/19 24 Quality Medication Reviewed and Updated completed [facility] 11/03/2023 15:28:56 11/04/19 24 Quality BMI with follow up completed [facility] 11/03/2023 15:28:56 11/04/19 24 Quality Advanced Care Planning completed [facility], [facility] 11/03/2023 15:28:56 11/04/19 24 Quality Incontinence Screening completed [facility] 11/03/2023 15:28:56 11/04/19 24 Medicare AWV-Screening Schedule completed [facility] 11/03/2023 15:28:56 11/04/19 24 Quality Fall Risk Assessment completed [facility] 11/03/2023 15:28:56 03/26/20 23 Diabetic Eye exam completed [facility] 10/14/2023 13:33:27 06/05/20 22 Colonoscopy completed [facility], [facility] 10/14/2023 13:33:46 Joint replacement, other completed [facility], [facility] 10/14/2023 13:09:30 Other completed [facility], [facility] 10/14/2023 13:09:30 Imaging Results None recorded. Procedure Notes None recorded. Medical Equipment None Reported. Allergies Allergen ID Allergen Name Allergen Category Reaction Reaction Severity Criticality Documentation Date Start Date Code Code System Note Provider Name and Address Organization Details Recorded Time [id number] Substance with sulfonami de structure and antibacte rial mechanism of action (substanc e) medicatio n Not available Not available Not available 10/14/20232023 [id number] Jade Olivera-RAHEEM Robin - [facility], [facility] 16:49:04 Medications Name Sig Start Date Stop Date Status Note LastModified by Organization Details LastModified Time acetaminoph en 325 mg tablet TAKE 1 TO 2 TABLETS BY MOUTH EVERY 6 HOURS NEEDED 10/31 completed Not Available Not Available Not Available doxycycline hyclate 100 mg capsule TAKE ONE CAPSULE BY MOUTH TWICE A DAY FOR 7 DAYS 10/31 completed Not Available Not Available Not Available azithromyci n 250 mg tablet TAKE TWO TABLETS BY MOUTH ON DAY 1, THEN TAKE ONE TABLET ONE TIME DAILY ON DAYS 2-5 12/31 completed Not Available Not Available Not Available amoxicillin 600 mg-potassiu m clavulanate 42.9 mg/5 mL oral suspension TAKE 7MLS BY MOUTH TWO TIMES A DAY FOR 10 DAYS. DISCARD REMAINDER active Not Available Not Available No t Available hydrocodone 5 mg-acetamin ophen 325 mg tablet TAKE ONE-HALF TABLET BY MOUTH EVERY 4 TO 6 HOURS NEEDED FOR PAIN 10/31 completed Not Available Not Available Not Available prednisone 20 mg tablet TAKE TWO TABLETS BY MOUTH EVERY DAY FOR 5 DAYS 10/31 completed Not Available Not Available Not Available cyanocobala min (vit B-12) 1,000 mcg tablet Take 1 tablet twice a day by oral route. active Not Available Not Available No t Available amlodipine 5 mg tablet TAKE ONE TABLET BY MOUTH ONE TIME DAILY active Not Available Not Available No t Available amoxicillin 875 mg tablet TAKE ONE TABLET BY MOUTH TWICE A DAY 10/31 completed Not Available Not Available Not Available tamsulosin 0.4 mg capsule TAKE ONE CAPSULE BY MOUTH TWICE A DAY active Not Available Not Available No t Available sodium bicarbonate 650 mg tablet TAKE TWO TABLETS BY MOUTH TWICE A DAY IN THE MORNING AND EVENING active Not Available Not Available No t Available amlodipine 10 mg tablet TAKE ONE TABLET BY MOUTH ONE TIME DAILY 10/31 completed Not Available Not Available Not Available pantoprazol e 40 mg tablet,tashi yed release TAKE ONE TABLET BY MOUTH ONE TIME DAILY 2024 active Not Available Not Available Not Avai lable ferrous sulfate 325 mg (65 mg iron) tablet Take 1 tablet every day by oral route. 10/14 completed Not Available Not Available Not Available lisinopril 10 mg tablet TAKE ONE TABLET BY MOUTH EVERY MORNING active Not Available Not Available No t Available BD Luer-Juan R Syringe 3 mL 25 gauge x 1 USE 1 SYRINGE EVERY 2 WEEKS active Not Available Not Available No t Available azelastine 137 mcg (0.1 %) nasal spray PLACE TWO SPRAYS IN THE AFFECTED NOSTRIL(S ) EVERY MORNING 2024 active Not Available Not Available Not Avai lable testosteron e cypionate 200 mg/mL intramuscul ar oil INJECT 1ML INTRAMUSC ULARLY EVERY TWO WEEKS active Not Available Not Available No t Available ibuprofen 600 mg tablet TAKE ONE TABLET BY MOUTH EVERY 6 TO 8 HOURS NEEDED 10/31 completed Not Available Not Available Not Available cefdinir 300 mg capsule TAKE ONE CAPSULE BY MOUTH EVERY 12 HOURS FOR 7 DAYS 11/04 completed Not Available Not Available Not Available fluticasone propionate 50 mcg/actuati on nasal spray,suspe nsion ADMINISTE R 2 SPRAYS INTO THE AFFECTED NOSTRIL(S ) EVERY EVENING active Not Available Not Available No t Available amoxicillin 875 mg-potassiu m clavulanate 125 mg tablet TAKE 1 TABLET BY MOUTH IN THE MORNING AND 1 TABLET IN THE EVENING FOR 5 DAYS active Not Available Not Available No t Available rosuvastati n 10 mg tablet TAKE ONE TABLET BY MOUTH EVERY DAY active Not Available Not Available No t Available tadalafil 5 mg tablet TAKE ONE TABLET BY MOUTH EVERY DAY active Not Available Not Available No t Available chlorhexidi ne gluconate 0.12 % mouthwash RINSE MOUTH WITH 15MLS FOR 30 SECONDS IN THE MORNING AND IN THE EVENING AFTER TOOTHBRUS KRISTYN 10/31 completed Not Available Not Available Not Available BD Integra Syringe 3 mL 25 gauge x 1 USE 1 SYRINGE EVERY 2 WEEKS active Not Available Not Available No t Available levocetiriz ine 5 mg tablet TAKE ONE TABLET BY MOUTH AT BEDTIME active Not Available Not Available No t Available FreeStyle Daphne 14 Day Sensor kit APPLY 1 SENSOR TO BACK OF UPPER ARM REPLACING ONCE EVERY 14 DAYS active Not Available Not Available No t Available FreeStyle Daphne 14 Day [place] active Not Available Not Available N ot Available Ozempic 1 mg/dose (4 mg/3 mL) subcutaneou s pen injector INJECT 1MG UNDER THE SKIN EVERY WEEK active Not Available Not Available No t Available Vitals Date Recorded Body height Respiratory rate Body mass index (BMI) Body weight Body temperature Heart rate Oxygen saturation Oxygen saturation in Arterial blood by Pulse oximetry Systolic blood pressure Diastolic blood pressure Provider Name and Address Organization Details Last Updated DateTime 5 182.88 cm 16 /min 34.1 kg/m2 941301. 84 g 98.2 [degF] 70 /min 94 % 94 % 148 mm[Hg] 62 mm[Hg] Jade headley [facility], [facility] 5 09:52:58 Date Recorded Body height Respiratory rate Body mass index (BMI) Body weight Oxygen saturation Oxygen saturation in Arterial blood by Pulse oximetry Heart rate Body temperature Systolic blood pressure Diastolic blood pressure Provider Name and Address Organization Details Last Updated DateTime 4 182.88 cm 16 /min 33.8 kg/m2 727339. 5 g 96 % 96 % 78 /min 98 [degF] 138 mm[Hg] 64 mm[Hg] Carley Mendoza [facility], [facility] 4 08:52:26 Date Recorded Body height Body mass index (BMI) Body weight Body temperature Respiratory rate Oxygen saturation Oxygen saturation in Arterial blood by Pulse oximetry Heart rate Systolic blood pressure Diastolic blood pressure Systolic blood pressure Diastolic blood pressure Provider Name and Address Organization Details Last Updated DateTime 5 182.88 cm 34.3 kg/m2 056436. 87 g 97.8 [degF] 16 /min 93 % 93 % 81 /min 142 mm[Hg] 72 mm[Hg] 142 mm[Hg] 72 mm[Hg] Carley Mendoza [facility], [facility] 5 08:54:23 Date Recorded Body height Respiratory rate Body mass index (BMI) Body weight Oxygen saturation Oxygen saturation in Arterial blood by Pulse oximetry Heart rate Body temperature Systolic blood pressure Diastolic blood pressure Systolic blood pressure Diastolic blood pressure Provider Name and Address Organization Details Last Updated DateTime 4 182.88 cm 16 /min 33.5 kg/m2 307650. 32 g 97 % 97 % 78 /min 98.2 [degF] 144 mm[Hg] 74 mm[Hg] 142 mm[Hg] 74 mm[Hg] Carley Mendoza [facility], [facility] 4 08:45:48 Date Recorded Body height Body mass index (BMI) Body weight Respiratory rate Oxygen saturation Oxygen saturation in Arterial blood by Pulse oximetry Heart rate Body temperature Systolic blood pressure Diastolic blood pressure Provider Name and Address Organization Details Last Updated DateTime 3 182.88 cm 34.6 kg/m2 149585. 05 g 16 /min 96 % 96 % 75 /min 97.8 [degF] 118 mm[Hg] 60 mm[Hg] [facility]ad [facility] 3 13:32:21 Social History Question Answer Notes LastModified by [employer] Details LastModified Time Tobacco Smoking Status Former Smoker Ziyad landaverde [facility] 10/14/2023 13:09:30 Do You Have An Advance Directive? Yes Information not available 10/14/2023 Is Blood Transfusion Acceptable In An Emergency? Yes Information not available 10/14/2023 What Is Your Level Of Caffeine Consumption? Moderate Information not available 10/14/2023 How Much Tobacco Do You Chew? None Information not available 10/14/2023 What Was The Date Of Your Most Recent Tobacco Screening? 10/31/2024 [email or web address] Information not available 10/31/2024 What Is Your Relationship Status? Information not available 10/14/2023 Are You Sexually Active? No Information not available 10/14/2023 Sex: Male Functional Status Question Answer Note LastModified by [employer] Details LastModified Time What is your level of alcohol consumption? Occasional Information not available 10/14/2023 Do you or have you ever used smokeless tobacco? Former smokeless tobacco user Information not available 10/14/2023 What is your exercise level? Occasional Information not available 10/14/2023 Mental Status None recorded. Family History Relationship Description Onset Age of this Age Resolved Age Notes LastModified by Organization Details LastModified Time Father Family history of malignant neoplasm pancre ase jdearcia Not available 10/14/2023 13:34:23 Medical History Condition Response Diabetes Y Cancer (location) Y High blood pressure Y Urinary Problems Y Sleep Apnea Y GERD/Ulcer Y Kidney Disease Y Erectile / Sexual Dysfunction Y Immunizations Vaccine Type Date Status Note Provider Nam e and Address Organization Details Recorded Time influenza nasal, unspecified formulation 08/13/2023 completed Ziyad Catrachitarcraleigh landaverde [facility], [facility] 10/14/2023 13:28:24 SARS-COV-2 (COVID-19) vaccine, UNSPECIFIED 12/06/2020 completed Ziyad Catrachitarcia null [facility], [facility] 10/14/2023 13:31:27 SARS-COV-2 (COVID-19) vaccine, UNSPECIFIED 02/06/2021 completed Ziyad Dearcia null [facility], [facility] 10/14/2023 13:31:32 SARS-COV-2 (COVID-19) vaccine, UNSPECIFIED 04/09/2022 completed Ziyad Miguel landaverde [facility], [facility] 10/14/2023 13:31:39 Past Encounters Encounter ID Performer Location Encounter Start Date Encounter Closed Date Diagnosis/Indication Diagnosis SNOMED-CT Code Diagnosis ICD10 Code Diagnosis Note [id number] ERIN BAKER MD [facility] [address] [place] [address] 10/14/2023 13:01:37 10/14/2023 14:33:29 Body mass index 30+ - obesity 962443423 Z68.34 weight issues discussed and informatio n on weight loss given. Needs follow up on weight control as scheduled. Education handout on diets given. Exercise counseling done. Will arrange referral for dietitian, nutritioni st, Physical/o ccupationa l therapy as needed or desired. Also will consider pharmaceut ical and supplement al interventi ons Obesity 075195493 E66.9 see BMI above for details Diet education 80326731 Z71.3 as above Type 2 ferny betes mellitus 26221874 E11.22 chronic problem, stable with no significan t clinical changes. Needs monitoring . Prescripti on drug management : Continue medication s as in med list. Follow up as scheduled. Hypertensive disorder 38 486718 I10 chronic problem, stable with no significan t clinical changes. Needs monitoring . Prescripti on drug management : Continue medication s as in med list. Follow up as scheduled. Mixed hyperlipidemia 267 730113 E78.2 chronic problem, stable with no significan t clinical changes. Needs monitoring . Prescripti on drug management : Continue medication s as in med list. Follow up as scheduled. Male hypogonadism 296594 06 E29.1 chronic problem, stable with no significan t clinical changes. Needs monitoring . Prescripti on drug management : Continue medication s as in med list. Follow up as scheduled. Increased frequency of urination 951504978 R35.0 Chronic ki dney disease stage 3B 102776275 N18.32 chronic problem, stable with no significan t clinical changes. Needs monitoring . Prescripti on drug management : Continue medication s as in med list. Follow up as scheduled. Allergic rhinitis 397275 04 J30.9 chronic problem, stable with no significan t clinical changes. Needs monitoring . Prescripti on drug management : Continue medication s as in med list. Follow up as scheduled. [id number] MAURILIO HESS APRN [facility] [address] [facility] [address] 11/04/2023 08:38:50 11/04/2023 09:45:29 Allergic rhinitis 21350039 J30.9 chronic problem, stable with no significan t clinical changes. Needs monitoring . Prescripti on drug management : . Follow up as scheduled. Male hypogonadism 381137 06 E29.1 chronicuns tablehas had bilateral testicular removedwil l consider testostero ne after hematology consultasy mptomaticf ollow up as schedule Chronic ki dney disease stage 3B 583480982 N18.32 chronic problem, stable with no significan t clinical changes. Needs monitoring .Prescript ion drug management : . Follow up as scheduled. GFR and creatinine stable pt had acute kidney injury in May 2023follow s nephrology Anemia 202624856 D64.9 chronicuns tableneeds hematology consultfol low up as scheduled Chronic ki dney disease stage 3 due to type 2 diabetes mellitus 6860325612 05 N18.32 chronic problem, stable with no significan t clinical changes. Needs monitoring . Prescripti on drug management : . Follow up as scheduled. Benign pro static hyperplasia with outflow obstruction 328737957 N40.1 chronic problem, stable with no significan t clinical changes. Needs monitoring . Prescripti on drug management : . Follow up as scheduled. Essential hypertension 96204761 I10 chronic problem, stable with no significan t clinical changes. Needs monitoring . Prescripti on drug management : . Follow up as scheduled. Gastroesop hageal reflux disease without esophagitis 872016636 K21.9 chronicsta bleRecomme nd to avoid spicy foods, tomato sauce, sodas, coffee, or chocolate. Consume small, frequent meals.Avoi d NSAIDs.sta y sitting up 90 degrees for 90 minutes after every mealmedica tion risks and benefits reviewed. Side effects reviewed. 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 Needs monitoring . Prescripti on drug management : . Follow up as scheduled. Adult heal th examination 828141210 Z00.00 annual wellness done today [id number] MAURILIO HESS APRN [facility] [address] [place] [address] 01/01/2024 08:31:44 01/01/2024 09:10:36 Chronic kidney disease stage 3B 910392281 N18.32 chronic problem, stable with no significan t clinical changes. Needs monitoring .Prescript ion drug management : . Follow up as scheduled. gfr 43creatini ne 1.68GFR and creatinine stable pt had acute kidney injury in May 2023follow s nephrology Essential hypertension 17849088 I10 chronicuns tableNeeds monitoring . Prescripti on drug management : .Monitor BPs, keep a log and bring to next visit. DASH diet and walk 20-30 min daily. F/U as scheduled or sooner if BP remains >140/90fol low up as scheduledi ncrease amlodipine to 10 mg daily Hypercholesterolemia 136 58280 E78.00 chronicuns tablestart fish oilmedicat ion risks and benefits reviewed. Side effects reviewed. Patient verbalized understand ing and agrees to start medication .found on routine labsUnders tands increased statistica l increased risk of stroke, heart attack and . therapeuti c lifestyle changes and/or medication s to maintain an LDL below 100. Periodic visits and labs and appropriat e therapeuti c changes will occur to help meet this goal to minimize risk of atheroscle rotic disease. Recheck labs as ordered. [id number] MAURILIO FIGUEROALARISA BAKER [employer] [facility] [address] [place] [address] 10/31/2024 09:43:17 10/31/2024 11:09:20 Intermittent palpitations 311823508 R00.2 - No evidence of atrial fibrillati on on heart monitor over the past 3 years.- EKG shows sinus rhythm, no abnormalit ies detected.- Continue monitoring for any new symptoms or changes. Obesity 801019524 E66.9 - Body mass index (BMI) 30+.- Discussed importance of weight management and potential benefits of weight loss on overall health.- Advised to maintain a balanced diet and regular physical activity. Weight issues discussed and informatio n on weight loss given. Needs follow up on weight control as scheduled. , Body mass index 30+ - obesity 031039102 Z68.34 - Body mass index (BMI) 30+.- Discussed importance of weight management and potential benefits of weight loss on overall health.- Advised to maintain a balanced diet and regular physical activity. Gingival disease 7061502 3 K06.9 - Possible side effect of amlodipine .- Educated patient on the potential link between amlodipine and gingival disease.- Advised to discuss with oral surgeon regarding the continuati on of amlodipine and potential alternativ es.- Will consider switching antihypert ensive medication post-surge ry if gingival disease persists. chronicuns tablePatie nt is medically cleared to proceed with planned procedure. he is moderate risk.DC NSAIDs, ASA, supplement s, and multivitam ins one week prior to surgery.st op ozempic two weeks prior to surgery Testicular hypofunction 706874458 E29.1 - Currently on testostero ne injections , 200 mg every 2 weeks.- Recent testostero ne level: 535 ng/dL.- Hemoglobin improved to 12 g/dL after starting testostero ne therapy.- Advised to continue testostero ne injections as prescribed .- Need recent PSA and CBC results for monitoring .- Will coordinate with endocrinol ogist for ongoing management . Hyperglyce arslan due to type 2 diabetes mellitus 8375135395 42407 E11.65 - Current medication : Ozempic.- A1c: 6.7%.- Advised to stop Ozempic 2 weeks before surgery.- Discussed alternativ e medication s like Rybelsus if insurance issues arise.- Continue monitoring blood glucose levels. Essential hypertension 90257786 I10 continue amlodipine 5mg daily- Discussed potential side effect of gingival disease.- Advised to discuss with oral surgeon regarding the continuati on of amlodipine .- Will consider switching antihypert ensive medication post-surge ry if gingival disease persists. Stomatitis 98333043 K12. 30 - Multiple oral ulcers present on the inside of the lip, roof of the mouth, and gums.- Previous biopsies returned benign.- Scheduled for oral surgery with ablation to prevent recurrence .- Advised to stop Ozempic 2 weeks before surgery.- EKG and pre-op evaluation completed and will be faxed to the surgical team. [id number] MAURILIO HESS APRN [facility] [address] [place] [address] 11/14/2024 08:39:24 11/14/2024 09:35:25 Adult health examination 396822441 Z00.00 - Comprehens renee review of systems and physical examinatio n performed. - Blood pressure: 142/72 mmHg.- Temperatur e, heart rate, and oxygen saturation within normal limits.- Depression screening negative.- Flu vaccinatio n status confirmed; patient received flu shot in [place]. - Urinalysis showed a little bit of bacteria, but culture was negative.- Thyroid function (TSH) normal.- PSA: 1.47 ng/mL, within normal limits.- Cholestero l levels significan tly improved: Total cholestero l 144 mg/dL, HDL 49 mg/dL, LDL 72 mg/dL, Triglyceri romeo 156 mg/dL.- Fasting blood sugar: 131 mg/dL.- Hemoglobin : 12.7 g/dL.- Comprehens renee Metabolic Panel (CMP): Creatinine 1.75 mg/dL, GFR 40 mL/min/1.7 3m , Sodium and liver enzymes within normal limits, Potassium slightly elevated at 5.0 mmol/L.- Complete Blood Count (CBC): No signs of infection or anemia.- Patient advised to follow up with nephrologi st and endocrinol ogist.- Referral to otolaryngo logist (ENT) for evaluation of nasal congestion and potential sinus polyps.- Home sleep study ordered for evaluation of obstructiv e sleep apnea.- Follow-up appointjosemanuel t scheduled for early December to discuss medication s and blood pressure management . Medicare Annual Wellness Visit done today. Essential hypertension 17772878 I10 - Blood pressure: 142/72 mmHg.- Patient currently on Lisinopril 10 mg daily.- Advised to monitor blood pressure at home.- Follow-up with nephrologi st to ensure kidney-fri endly management .- Discuss potential adjustment of antihypert ensive therapy post-surge ry. 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 Allergic rhinitis 038011 04 J30.9 - Symptoms include nasal congestion primarily at night.- Current medication s: Fluticason e (Flonase) once daily, Azelastine (Astelin) twice daily.- Advised to continue current regimen and add Levocetiri zine at night.- Referral to ENT for further evaluation . chronicuns table Snoring 64617727 R06.83 - Patient reports nasal congestion and snoring at night.- Home sleep study ordered to evaluate for obstructiv e sleep apnea.- Referral to ENT for further evaluation . Type 2 ferny betes mellitus without complication 921942572 E11.9 - Fasting blood sugar: 131 mg/dL.- HbA1c: 6.9%.- Patient currently on Ozempic, temporaril y discontinu ed for surgery.- Advised to resume Ozempic post-surge ry.- Discussed potential need for additional diabetes management medication s post-surge ry.- Patient to log blood sugars and follow up with endocrinol ogist. Obstructiv e sleep apnea syndrome 30266841 G47.33 - Home sleep study ordered for evaluation .- Patient currently using a dental appliance. - Referral to Pulmonary or CPAP therapy if sleep study results indicate. History of orchiectomy 827374814 Z90.79 Hyperlipidemia 74743663 E78.5 - Cholestero l levels significan tly improved: Total cholestero l 144 mg/dL, HDL 49 mg/dL, LDL 72 mg/dL, Triglyceri romeo 156 mg/dL.- Patient currently on Rosuvastat in 10 mg daily.- Advised to continue current medication and follow up with primary care physician. Chronic ki dney disease stage 3B 260872698 N18.32 - Creatinine : 1.75 mg/dL.- GFR: 40 mL/min/1.7 3m .- Potassium: 5.0 mmol/L.- Patient to follow up with nephrologi .- Monitoring of kidney function and adjustment of medication s as needed. Health Concerns Section Related Observation LastModified by Organization Detai ls LastModified Time None Recorded Concern Status LastModified by Organization Details LastModified Time None Recorded Advance Directives Directive Y: Payers Insurance Date Sequence Insurance Name Policy Number Policy Rodríguez Covered Member ID Rodríguez Member ID Guarantor Name 01/02/2025 [place] Pillo Cardenas [id number] Pillo Cardenas 01/02/2025 2 [place] Pillo Cardenas [id number] Pillo Cardenas 01/03/2025 1 [place] [id number] Pillo Cardenas [id number] Pillo Cardenas 01/02/2025 1 [place] Pillo Cardenas [id number] Pillo Cardenas 01/02/2025 2 [place] Pillo Cardenas [id number] Pillo Cardenas Notes Date Note Type Note Provider Name and Address Organization Details Recorded Time 10/14/20 23 text/ht ml DiabetesReported bypatient.Reason for visit:continued care of chronic complaint Diabetes:type 2 Complications due to diagnosis:no complications Presenting symptoms/method of diagnosis:asymptomatic/coincident al finding in lab test Review finger sticks:blood glucose data brought to clinic visit: yes; frequency of blood glucose monitoring: <1 times daily.; fasting (average): Current therapy:Metformin Metabolic Control and Effort:usually well controlled; home blood sugars (in the low 100s); recent A1C 6.6-7; usually compliant with regimen Current Symptoms/Concerns:no concerns voiced; no weight gain; no weight loss; no dizziness; no sweats; no headaches; no confusion; no increased thirst; no increased appetite; no increased urination; no blurred vision; no numbness of feet; no calluses on feet Self Care:taking aspirin daily; taking an DIEGO inhibitor; checking feet regularly; seeing eye doctor regularlyDyslipidemiaReported bypatient.Reason for visit:continued care of chronic complaint Diagnosis:hypercholesterolemia ; hyperlipidemia Complications due to diagnosis:no complicatons Presenting symptoms/method of diagnosis:asymptomatic / coincidental finding on test Interventions:no interventions Current therapy:medication list reviewed; using diet and exercise; using other therapeutic lifestyle changes; no side effects from medication Current control and compliance:usually well controlled, asymptomatic; usually compliant with regimen; exercising regularly; eating healthy meals Current tests/results:Lipid profile shows good control as out patient Current Symptoms/Concerns:none statedGU complaintReported bypatient.Reason for visit:exacerbation of chronic complaint Genitourinary complaint:BPH Quality:urgency;frequency Severity:unchanged Duration:intermittent Onset/Timing:gradual;a few years ago Context:no recent illness or injury; no sexual activity Alleviating factors:prescription medication Aggravating factors:nothing Associated Symptoms:no fever; no discharge; no hematuria; no flank pain; no abdominal pain; no rashHypertension/Hypertensive diseasesReported bypatient.Reason for visit:continued care of chronic complaint Hypertension Diagnosis:Benign Essential hypertension CKD data*:Stage III Complications due to HTN:no complicatons Presenting symptoms/method of dx:asymptomatic / elevated BP found on routine blood pressure check Current therapy:medication list reviewed; using diet and exercise; using other therapeutic lifestyle changes Current control and compliance:usually well controlled; usually compliant with regimen; checks bp regularly with home monitor; exercising regularly; eating healthy meals Current tests/results:blood pressure log shows good control as out patient Current Symptoms/Concerns:none stated; no chest pain; no shortness of breath; no fatigue; no headaches; no blurred vision; no edema; no abdominal pain; no palpatations; no cough QUALITY MEASURE QUESTIONNAIRE Are you a diabetic patient Yes Has the Patient had a Diabetic Eye Exam in the last year Yes When did the Patient complete the annual diabetic eye exam 03/26/2023 Who was the rendering provider [facility] Dr Harrison Was the patient positive for diabetic retinopathy No Has the Patient previously received any type of colorectal cancer screener Yes Please confirm which of the following colorectal screeners the Patient has received in the past Colonoscopy Colonoscopy Result Negative [facility] ERIN BAKER MD [address], [place], [address], [employer] 10/15/2023 12:55:36 11/04/19 24 text/ht ml Abnormal Test ResultReported bypatient.Abnormality:abnormal lab Severity:moderate abnormalityBerger Hospitalcare Annual Wellness VisitReported bypatient.Visit type:subsequent Medicare Annual Wellness visit PMH/FH/Rx and Social History Review:updated EMR in appropriate tabs MAURILIO HESS APRN [address], [place], [address], [employer] 11/04/2023 21:07:08 01/01/20 24 text/ht ml Chronic Kidney Disease*Reported bypatient.Reason for visit:continued care of chronic complaint CKD data*:chronic kidney disease stage IIIb;Last 2 gfrs with dates:(12/16/23 43 10/23/24 34);proteinuria with last date: Presenting symptoms/method of dx:asymptomatic / found on routine blood test Current therapy:medication list reviewed Current control and compliance:usually well controlled / stableNotes:pt following hematology and nephrologyDyslipidemiaReported bypatient.Reason for visit:continued care of chronic complaint Diagnosis:hyperlipidemia Complications due to diagnosis:no complicatons Presenting symptoms/method of diagnosis:asymptomatic / coincidental finding on test Interventions:no interventions Current control and compliance:usually well controlled, asymptomatic; usually compliant with regimen; exercising regularly; eating healthy meals Current Symptoms/Concerns:none statedHypertension/Hypertensive diseasesReported bypatient.Reason for visit:continued care of chronic complaint Hypertension Diagnosis:Benign Essential hypertension Complications due to HTN:no complicatons Presenting symptoms/method of dx:asymptomatic / elevated BP found on routine blood pressure check Current therapy:medication list reviewed; using other therapeutic lifestyle changes; no side effects from medications Current control and compliance:usually well controlled; usually compliant with regimen; checks bp regularly with home monitor; exercising regularly; eating healthy meals Current tests/results:blood pressure log shows as out patient Current Symptoms/Concerns:none stated MAURILIO HESS APRN [address], [place], [address], [facility] [email or web address] includes the [facility], [employer] 01/03/2024 19:10:04 10/31/19 25 text/ht ml The patient is a 74-year-old male with a history of oral ulcers, presenting for a preoperative evaluation. The patient is scheduled for oral surgery in [place] on 11/20/2023 to address recurrent oral ulcers. He reports multiple ulcers on the inside of his lip, the roof of his mouth, and his gums. He has undergone three previous excisions, all of which were benign. The upcoming procedure will involve removal and ablation to prevent recurrence. He has been diagnosed with gingival hyperplasia and is currently taking amlodipine. The patient has been on Ozempic for diabetes management, with an HbA1c of 6.7%. He has been advised to discontinue Ozempic two weeks prior to surgery. He expresses concern about switching to insulin, as previous use resulted in glucose levels ranging from 350-400 mg/dL. He is also on testosterone injections, 200 mg every two weeks, which has improved his testosterone levels from 35 ng/dL to 535 ng/dL and increased his hemoglobin to 12 g/dL. He inquires about transferring his testosterone prescription to [place]. He has a history of a testicular removal and has been wearing a heart monitor for nearly three years due to episodes resembling TIAs, which have since resolved. He has been evaluated by a neurologist, scientific investigator, and make up arranger, with no evidence of strokes, seizures, or atrial fibrillation. He was previously on testosterone but was advised to discontinue it by his scientific investigator. He reports a history of low hemoglobin and has been evaluated by a make up arranger, with no underlying malignancies identified. He also mentions a history of kidney issues requiring hospitalization. QUALITY MEASURE QUESTIONNAIRE When did the Patient complete the annual diabetic eye exam 06/17/2024 Who was the rendering provider [facility] David Silvestre OD [facility] 10/31/2024 MAURILIO HESS, THIRD COOK [address], [place], [address], [facility], [facility] 10/31/2024 12:48:21 11/14/19 25 text/ht ml Medicare Annual Wellness VisitReported bypatient.Visit type:subsequent Medicare Annual Wellness visit PMH/FH/Rx and Social History Review:updated EMR in appropriate tabs The patient is a 74-year-old male with a history of HTN, HLD, DM, CKD, and sleep apnea, presenting for a Medicare Annual Wellness Visit. The patient reports nocturnal nasal congestion that disrupts sleep. He has been using fluticasone at night and azelastine in the morning, as prescribed by Dr. Baker, which initially provided relief but now only lasts 2-3 hours. He has also tried Claritin at night without improvement. Sinex provides 8 hours of relief, but he is aware of the recommendation to limit its use to 3 consecutive days. He denies daytime nasal congestion and reports that the congestion resolves within 30 minutes of sitting in a recliner. He uses a dental appliance for sleep apnea and is interested in a CPAP machine to help with nasal congestion. He denies any recent sleep studies. The patient reports 2-3 episodes of nocturia per night, improved from 5 episodes after starting tamsulosin. He denies abdominal pain or swelling and reports regular bowel movements and good appetite. The patient is currently taking lisinopril 10 mg for HTN, with a recent BP reading of 142/72. He has not been monitoring his BP at home. He also takes rosuvastatin 10 mg for HLD, with significant improvement in lipid levels over the past year. Total cholesterol decreased from 268 to 144, triglycerides from 328 to 156, and LDL from 158 to 72. HDL is stable at 49. He attributes these improvements to medication, diet, and exercise. The patient has a history of DM and is currently on Ozempic, which he paused 2 weeks prior to surgery on 11/22. He reports fasting blood glucose levels around 120 mg/dL in the morning, increasing to over 150 mg/dL postprandially. His most recent HbA1c is 6.9%, down from 7.0%. He was previously on metformin but discontinued it due to CKD, with a current creatinine level of 1.75 mg/dL and GFR of 40 mL/min/1.73m , improved from the 30s. He is cautious about medications affecting renal function and plans to discuss alternatives with his oral pathologist. The patient has a history of recurrent UTIs, with 8 episodes in one year following orchiectomy. He reports a negative urine culture despite the presence of bacteria. He also has a history of anemia, with hemoglobin levels previously requiring transfusions. He denies current symptoms of bleeding and reports a normal colonoscopy 2 years ago. He is under the care of multiple specialists, including endocrinology, nephrology, and dermatology, and has a follow-up appointment with nephrology on 11/30. He plans to return to [place] in early December after the of his grandson on 12/02. ANNUAL WELLNESS VISIT QUESTIONNAIRE Has the patient had any change or additions to their Medical Care Team since the last visit? i.e. pharmacy, medical suppliers, doctors Yes Patient reported changes/additions to Medical Care Team French Tutor What is the Patient's living arrangements? Live with Spouse What type of residence does the Patient live in? Single Family Home How many stories (floors) to the Patient's residence? Single Story (1 floor) Does the Patient have smoke / CO detectors in the home? Yes Does the Patient use any of the following Respirator Machines? Nebulizer - No Oxygen - No CPAP/BiPAP - No Is the Patient able to afford his/her medications? Yes What type of transportation does the Patient use? I use my own car Has the Patient had a weight change in the past 6 months? No What type of diet the patient is currently following? Diabetic What best describes the Patient's level of Physical activity? Occasional Does the Patient use Tobacco Products? No Has the Patient seen a Dentist in the last 12 months? Yes Does the Patient always use a seat belt routinely? Yes Does the Patient use sunscreen routinely? No Does the Patient wear a helmet when riding a bicycle/motorcycle? Yes Is the Patient sexually active? Yes, uses safe sex practices How would the patient rate their health compared to others your age? Same How would the patient rate their health today compared to last year? Better Does the Patient have Pain? Yes On a scale of 1-10 (10 is the most severe) describe your degree of discomfort today 3 Where are you experiencing pain? Head - No Pain Neck - No Pain Shoulder - No Pain Arm - No Pain Wrist - No Pain Hand - No Pain Chest - No Pain Upper Back - No Pain Mid Back - No Pain Lower Back - Right Side Abdomen - No Pain Groin - No Pain Hip - Right Side Thigh - Right Side Ankle - No Pain Foot - No Pain Other / Not listed - No Pain Is the patient using narcotics/opioids for pain? No Is the patient taking or using any other harmful substances? No Does the Patient or people around the Patient have concerns about the Patient's hearing? Currently wear hearing aids Does the Patient or people around the Patient have concerns about the Patient's vision? No Does the Patient use any of the following for mobility assistance? Cane - No Crutches - No Walker - No Wheelchair/Scooter - No Does the Patient or the people around the Patient have concerns about his/her memory? No Does the Patient have an Advance Directive (Living Will)? No Colonoscopy Date 2022 Date of Last Prostate Cancer Screening 2022 PHQ Score No or Minimal depression, (3). Imported from [employer] on 11/14/2024 MAURILIO HESS, THIRD COOK [address], [place], [address], [facility] - [facility], [facility] 11/14/2024 20:06:42
--- OUTSIDE RECORDS SUMMARY | 2025-04-22 10:09 | XMS_ITS | Encounter Summary ---
Author Organization [place] Address [address] [place] [address] Care Team Providers Care Fire Assistant Name Role Phone Bill Bowens PA-C Primary Care Provider + Bill Bowens PA-C Unavailable [phone] Alex Rao MD Primary Care Provider Alex Rao MD Unavailable [phone] Beni Puga MD PhD Unavailable Alex Rao MD Unavailable [phone] Nate Leong MD Unavailable Sharri Hdez MD Unavailable [phone] Alex Rao MD Unavailable [phone] Alex Rao MD Unavailable [phone] Russell Agosto MD Unavailable [phone] Magdalena Fry MD Unavailable Doris Chaney [facility] Unavailable [phone] Doris Chaney [facility] Unavailable [phone] Canelo Kelley MD Unavailable Encounter Details Date Type Department Care Team (Late st Contact Info) Description 08/25/2019 MyC Medical Advice M [address] [phone] Nate Leong MD [address] [id number] Social History Tobacco Use Types Packs/Day Years [...] AM CDT 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 Gender Identity Male 11/22/2018 10:40 AM 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 Sexual Orientation Straight 11/22/2018 10 :40 AM 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 Occupation Industry Job Start Date Job 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- [employer] Not on file Not on file Not on file documented as of this encounter Plan of Treatment Upcoming Encounters Date Type Department Care Team (Late st Contact Info) Description 06/30/2025 Ancillary Procedure [address] [address] Magdalena Fry MD [address] [place] [address] [phone] 10/02/2025 Ancillary Procedure M [address] [address] Magdalena Fry MD [address] [place] [address] [phone] documented as of this encounter Visit Diagnoses Not on filedocumented in this encounter Care Teams Fire Assistant Relationship Specialty Start Date End Date Bill Bowens PA-C PCP - General Physician Account [employer] 02/20/15 09/18/19 Alex Rao MD [address] [place] [address] PCP - General Internal Medicine 09/19/19 Bill Bowens PA-C [address] [place] [address] Assigned PCP 01/14/15 12/03/19 Alex Rao MD [address] [facility] [place] [id number] Assigned PCP 12/04/19 02/18/20 Beni Puga MD PhD [address] [facility] [place] [address] Assigned PCP 02/19/20 02/25/20 Alex Rao MD [address] [facility] [place] [address] Assigned PCP 02/26/20 03/20/21 Nate Leong MD [address] 743075 Assigned Surgical Provider 08/17/20 11/07/22 Sharri Hdez MD [address] [place] [address] [address] [place], [place] [address] Assigned Endocrinology Provider 12/16/20 03/16/24 Alex Rao MD [address] [place] [address] Assigned PCP 03/21/21 Alex Rao MD 6320 [facility] [place] [address] Referring Physician Internal Medicine 04/02/22 Russell Agosto MD [address] [facility] [address] [place], [place] [address] Neurology 04/02/22 Magdalena Fry MD 420 [facility] [address] [place], [place] 011[address] Assigned Heart and Vascular Provider 04/26/22 02/15/24 [facility] [address] [place] [phone] Pharmacist Pharmacist 07/21/22 [facility] [address] [place] [phone] Assigned MTM Pharmacist 07/26/2202/14 [place] [address] [place] [phone] Nephrology 05/14/23 documented as of this encounter
--- OUTSIDE RECORDS SUMMARY | 2025-04-22 10:09 | XMS_ITS | Encounter Summary ---
Author Organization [place] Address [address] [place] [address] Care Team Providers Care Shipping Lead Person Name Role Phone Alex Rao MD Primary Care Provider [phone] Sharri Hdez MD Unavailable [phone] Alex Rao MD Unavailable [phone] Alex Rao MD Unavailable [phone] Russell Agosto MD Unavailable [phone] Magdalena Fry MD Unavailable Doris Chaney [facility] Unavailable [phone] 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 Unable to assess 05/14/2023 9:25 AM CDT documented as of this encounter Miscellaneous Notes * Telephone Encounter - Leydi Wang RN - 05/14/2023 8:[address] Fry, please review the remote transmissions under the media tab. Let me know if anything is concerning to you. Leydi Stokes RNdental internship [employer] [facility] [phone] option 1 documented in this encounter Plan of Treatment Upcoming Encounters Date Type Department Care Team (Late st Contact Info) Description 06/30/2025 Ancillary Procedure [address] [address] Magdalena Fry MD [address] [place] [address] [phone] 10/02/2025 Ancillary Procedure [address] [address] Magdalena Fry MD [address] [place] [address] 211555 documented as of this encounter Visit Diagnoses Not on filedocumented in this encounter Additional Health Concerns Assessment Noted Time PHQ-9 Depression Total Score: 9 06/10/20 22 11:44 AM CDT documented as of this encounter Care Teams Shipping Lead Person Relationship Specialty Start Date End Date Alex Rao MD PCP - General Internal Medicine 09/19/19 Sharri Hdez MD [address] 728055 Assigned Endocrinology Provider 12/16/20 03/16/24 Alex Rao MD 63[address] [place], [place] [phone] Assigned PCP 03/21/21 Alex Rao MD [address] [place], [place] [phone] Referring Physician Internal Medicine 04/02/22 Russell Agosto MD [address] [place] [address] [phone] Neurology 04/02/22 Magdalena Fry MD [address] 079735 Assigned Heart and Vascular Provider 04/26/22 02/15/[address] [facility] [address] [place] [phone] Pharmacist Pharmacist 07/21/[address] [facility] [address] [place] [phone] Assigned MTM Pharmacist 07/26/2202/14 [place] [address] [place], [place] [phone] Nephrology 05/14/23 documented as of this encounter
--- OUTSIDE RECORDS SUMMARY | 2025-04-22 10:09 | XMS_ITS | Encounter Summary ---
Author Organization [place] Address [address] [place] [address] Care Team Providers Care Director Of Slot Operations Name Role Phone Alex Rao MD Primary Care Provider [phone] Sharri Hdez MD Unavailable [phone] Alex Rao MD Unavailable [phone] Alex Rao MD Unavailable [phone] Russell Agosto MD Unavailable [phone] Magdalena Fry MD Unavailable Doris Chaney [facility] Unavailable [phone] Doris Chaney [facility] Unavailable Canelo Kelley MD Unavailable Encounter Details Date Type Department Care Team (Late st Contact Info) Description 04/09/2023 [facility] [address] 4[address] [place] [address] Taiwo Yañez Social History Tobacco [...] AM CDT Legal Sex Male 4:10 AM HAMMER FITTER Gender Identity Male 11/22/2018 10:40 AM HAMMER FITTER Sexual Orientation Straight 11/22/2018 10 :40 AM HAMMER FITTER Occupation Industry Job Start Date Job 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 No / Unsure 04/08/2023 12:06 PM CDT documented as of this encounter Plan of Treatment Upcoming Encounters Date Type Department Care Team (Late st Contact Info) Description 06/30/2025 Ancillary Procedure [address] [address] Magdalena Fry MD [address] [place] [address] [phone] 10/02/2025 Ancillary Procedure [address] [address] Magdalena Fry MD [address] [place] [address] [phone] documented as of this encounter Visit Diagnoses Not on filedocumented in this encounter Additional Health Concerns Assessment Noted Time PHQ-9 Depression Total Score: 9 06/10/20 22 11:44 AM CDT documented as of this encounter Care Teams Director Of Slot Operations Relationship Specialty Start Date End Date Alex Rao MD PCP - General Internal Medicine 09/19/19 Sharri Hdez MD [address] [place] [address] Assigned Endocrinology Provider 12/16/20 03/16/24 Alex Rao MD [address] [place] [address] Assigned PCP 03/21/21 Alex Rao MD [address] [place] [address] Referring Physician Internal Medicine 04/02/22 Russell Agosto MD [address] [address] Neurology 04/02/22 Magdalena Fry MD [address] [address] Assigned Heart and Vascular Provider 04/26/22 02/15/24 Doris Chaney [facility] [address] [place] [phone] Pharmacist Pharmacist 07/21/22 Doris Chaney [facility] [address] [place] [phone] Assigned MTM Pharmacist 07/26/2202/14 [place] [address] [place] [phone] Nephrology 05/14/23 documented as of this encounter
--- OUTSIDE RECORDS SUMMARY | 2025-04-22 10:09 | XMS_ITS | Encounter Summary ---
Author Organization [place] Address [address] [place] [address] Care Team Providers Care Soil Science Professor Name Role Phone Alex Rao MD Primary Care Provider [phone] Nate Leong MD Unavailable [phone] Sharri Hdez MD Unavailable Alex Rao MD Unavailable [phone] Alex Rao MD Unavailable [phone] Russell Agosto MD Unavailable [phone] Magdalena Fry MD Unavailable Doris Chaney [facility] Unavailable Doris Chaney [facility] Unavailable [phone] Canelo Kelley MD Unavailable Reason for Visit * Reason Comments Medication Refill Encounter Details Date Type Department Care Team (Late st Contact Info) Description 09/18/[address] [phone] Alex Rao MD [address] [place] [address] Medication Refill Social History Tobacco Use [...] AM CDT Legal Sex Male 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 No / Unsure 09/10/2022 9:31 AM OFFICE AUDITOR documented as of this encounter Plan of Treatment Upcoming Encounters Date Type Department Care Team (Late st Contact Info) Description 06/30/2025 Ancillary Procedure [address] [address] Magdalena Fry MD [address] [place] [address] 200175 10/02/2025 Ancillary Procedure [address] [address] Magdalena Fry MD [address] [place] [address] [phone] documented as of this encounter Visit Diagnoses Diagnosis Hyperlipidemia LDL goal <100 Other and unspecified hyperlipidemia documented in this encounter Additional Health Concerns Assessment Noted Time PHQ-9 Depression Total Score: 9 06/10/20 22 11:44 AM CDT documented as of this encounter Care Teams Soil Science Professor Relationship Specialty Start Date End Date Alex Rao MD PCP - General Internal Medicine 09/19/19 Nate Leong MD [address] [place], [place] 7787[address] Assigned Surgical Provider 08/17/20 11/07/22 Sharri Hdez MD 420 [facility] [address] [place], [place] [address] Assigned Endocrinology Provider 12/16/20 03/16/24 Alex Rao MD 63[address] [facility] [place] [phone] Assigned PCP 03/21/21 Alex Rao MD [address] [place], [place] 130981 Referring Physician Internal Medicine 04/02/22 Russell Agosto MD 420 [facility] [address] [place], [place] [address] Neurology 04/02/22 Magdalena Fry MD [address] [place] [facility] [address] [place], [place] 507[address] Assigned Heart and Vascular Provider 04/26/22 02/15/24 Doris Chaney [facility] [address] [place] [phone] Pharmacist Pharmacist 07/21/22 Doris Chaney [facility] [address] [place] [phone] Assigned MTM Pharmacist 07/26/2202/14 [place] [address] [place] [phone] Nephrology 05/14/23 documented as of this encounter
--- OUTSIDE RECORDS SUMMARY | 2025-04-22 10:09 | XMS_ITS ---
Author Organization 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 Diabetes Mellitus Type 2 06/19/2023 Hypertensive Chronic Kidney Disease With Stage 1 Through Stage 4 Chronic Kidney Disease, Or Unspecified Chronic Kidney Disease 06/19/2023 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 RDI was 3.5 events per hour. Lowest oxygen saturation was 89%. PLM Arousal Index was 4.0 per hour. Little supine sleep was seen. Gastroesophageal Reflux Disease Without Esophagi tis 02/22/2004 Current Treatment and Therapy Plans No current plan information found. Past Treatment and Therapy Plans No past plan information found. Lifetime Dose Tracking * Chemical Lifetime Dose Automatic Entry Manual Entr y Radiation 5.7 mGy 5.7 mGy 0 mGy Fluoro Time 0.9 minutes 0.9 minutes 0 minutes
--- OUTSIDE RECORDS SUMMARY | 2025-04-22 10:09 | XMS_ITS | Data Portability ---
Author Organization [facility], [facility] Address [address] [place] [address] Care Team Providers Care Physician Executive Name Role Phone SHAHNAZ LANDRY Primary Care Provider [facility] Primary Care Provid er Assessment Encounter Date Assessment Date Assessment LastModified by Organization Details LastModified Time 06/20/2024 06/20/2024 This is a 74 year old male who is referred for the evaluation and management of benign prostatic hyperplasia with lower urinary tract symptoms. [email or web address] Not available 06/19/2024 23:22:07 Plan of Treatment Reminders Order Date Submit Date Provider Last Modified By Organization Details Last Modified Time Details Appointments None recorded. Lab urinalysis, dipstick 2023 024 [facility], [address], [place], [address], 4 15:39:44 urinalysis, microscopic 2023 024 [facility], [address], [place], [address], 5 05:00:58 Referral None recorded. Procedures None recorded. Surgeries None recorded. Imaging None recorded. Medication Orders None recorded. Patient TargetsNo targets recorded. Patient Instructions Encounter Date Encounter Id Patient Instructions Last Modified By Organization Details Last Modified Time 06/20/2024 [id number] BPH/OAB -Patient with history of increased urinary urgency and frequency, most bothered by nocturia. He has a history of sleep apnea and uses a oral device but does forget to use it some nights. Discussed that this could could be contributing to his nocturia. -He has been on tamsulosin for a while now. Currently on 0.8 mg and has not noticed much of a difference - We discussed lifestyle modifications to improve bladder health: 1. Avoiding bladder irritants such as spicy food, caffeine, and alcohol 2. Drinking enough water to stay hydrated, but to not drink in excess of this 3. Manage any existing constipation. 4. Voiding on a schedule of about every 3 hours 5. Fluid restriction 2-3 hours before bed -Also recommend pelvic floor physical therapy. -Patient was just started on testosterone and feels like there is a lot going on right now. For now he would like to try lifestyle modifications. Will have patient follow-up in 6 months. If symptoms continue to worsen, will consider medication at that time Follow-up in 6 months [email or web address] Not available 06/20/2024 17:15:17 Reason for Referral None Reported. Results Created Date Observation Date Name Description Value Unit Range Abnormal Flag Note LastModifiedBy Organization Detail LastModifiedTime 06/20/20 24 06/20/2024 UA WITHO UT MICRO - CS URISC AN blood - uriscan NEGATI VE negati ve Not Available [facility] [address] [facility] [address], [place], [address], 06/20/2024 15:39:44 06/20/20 24 06/20/2024 UA WITHO UT MICRO - CS URISC AN bilirubin - uriscan NEGATI VE mg/dL negati ve Not Available [facility] [address] [facility] [address], [place], [address], 06/20/2024 15:39:44 06/20/20 24 06/20/2024 UA WITHO UT MICRO - CS URISC AN urobilinogen - uriscan NORMAL mg/dL normal Not Available [facility] [address] [facility] [address], [place], [address], 06/20/2024 15:39:44 06/20/20 24 06/20/2024 UA WITHO UT MICRO - CS URISC AN ketones - uriscan NEGATI VE mg/dL negati ve Not Available [facility] [address] [facility] [address], [place], [address], 06/20/2024 15:39:44 06/20/20 24 06/20/2024 UA WITHO UT MICRO - CS URISC AN protein - uriscan NEGATI VE mg/dL negati ve Not Available [facility] [address] [place] [address] [address], [place], [address], 06/20/2024 15:39:44 06/20/20 24 06/20/2024 UA WITHO UT MICRO - CS URISC AN nitrites - uriscan NEGATI VE negati ve Not Available [facility] [address] [place] [address] [address], [place], [address], 06/20/2024 15:39:44 06/20/20 24 06/20/2024 UA WITHO UT MICRO - CS URISC AN glucose - uriscan NEGATI VE mg/dL negati ve Not Available [facility] [address] [place] [address] [address], [place], [address], 06/20/2024 15:39:44 06/20/20 24 06/20/2024 UA WITHO UT MICRO - CS URISC AN pH - uriscan 5.00 5.00-9 .00 Not Available [facility] [address] [place] [address] [address], [place], [address], 06/20/2024 15:39:44 06/20/20 24 06/20/2024 UA WITHO UT MICRO - CS URISC AN sp. gravity - uriscan <=1.01 1.01-1 .03 Not Available [facility] [address] [place] [address] [address], [place], [address], 06/20/2024 15:39:44 06/20/20 24 06/20/2024 UA WITHO UT MICRO - CS URISC AN leukocytes - uriscan NEGATI VE negati ve Not Available [facility] [address] [place] [address] [address], [place], [address], 06/20/2024 15:39:44 06/20/20 24 06/20/2024 UA WITHO UT MICRO - CS URISC AN color - uriscan YELLOW lt. yellow ;yello w Not Available [facility] [address] [facility] [address], [place], [address], 06/20/2024 15:39:44 06/20/20 24 06/20/2024 UA WITHO UT MICRO - CS URISC AN clarity - uriscan CLEAR clear Not Available [facility] [address] [facility] [address], [place], [address], 06/20/2024 15:39:44 06/20/20 24 06/20/2024 UA WITHO UT MICRO - CS URISC AN total urine volume (mL) 40 /mL ----- ----- ----- ----- ----- ----- ----- ----- ----- ----- ----- ----- ----- ----- ---- *Lissette acosta note the follo wing minim um quant ities for addit ional urine testi ng: - Atypi cals: 3 mL - Cytol ogy: 20 mL - GC/CH : 2 mL - FISH: 30 mL - Atypi cals w/ GC/CH : 5 mL - Cytol ogy PLUS FISH: 50 mL - Urine Cultu re: 3 mL ----- ----- ----- ----- ----- ----- ----- ----- ----- ----- ----- ----- ----- ----- ---- This lab resul t is being provi ded to you and your provi baudilio at the same time in compl iance with the Centu ry Cures Act. Your provi baudilio may not have had time to revie w and make recom menda tions based on the resul t. Luciana e allow up to one week for provi baudilio revie w. Not Available [facility] [address] [facility] [address], [place], [address], 06/20/2024 15:39:44 Result Notes None recorded. Problems Name Problem SNOMED Code Status Onset Date Resolution Date Notes Provider Name and Address Organization Details Recorded Time Hypertensive disorder 77009658 Active 2023 Haily landaverde [facility] 4 15:23:46 Hypercholester olemia 61112892 Active 2023 Haily landaverde [facility] 4 15:23:52 History of statin therapy 952538005 Active 2023 Haily landaverde [facility] 4 15:24:02 Gastroesophage al reflux disease 537071721 Active 2023 Haily landaverde [facility] 4 15:24:19 Diabetes mellitus 54984601 Active 2023 Haily landaverde [facility] 4 15:24:34 Problem Notes None recorded. Procedures Surgical History Date Name Laterality Status Provider Name and Address Organization Details Recorded Time 06/20/20 24 COMPLEX VISIT completed Nitza Sparks PA-C [address] [facility],[address], [place], [address], [facility] 06/20/2024 17:15:25 06/20/20 24 Bladder Scan completed Haily De Jesus [facility] 06/20/2024 15:32:53 05/26/20 22 Diagnostic colonoscopy completed Not Available Health Note 06/16/2024 19:29:11 05/26/20 22 Diagnostic sigmoidoscopy completed Not Available Health Note 06/16/2024 19:29:11 Hernia repair w/mesh completed Not Available Health Note 06/16/2024 19:29:11 Imaging Results None recorded. Procedure Notes None recorded. Medical Equipment None Reported. Allergies Allergen ID Allergen Name Allergen Category Reaction Reaction Severity Criticality Documentation Date Start Date Code Code System Note Provider Name and Address Organization Details Recorded Time 213102 Substance with sulfonami de structure and antibacte rial mechanism of action (substanc e) medicatio n facial swelling flushing rash Not available Not available Not available Not available 06/16/2024 35134 8003 SNOMED Not Available Health Note 19:29:10 [id number] animal dander environme nt eye swelling respirato ry distress Not available Not available Not available 06/16/2024 09354 UNK Not Available Health Note 19:29:10 Medications Name Sig Start Date Stop Date Status Note LastModified by Organization Details LastModified Time acetaminoph en 325 mg tablet TAKE 1 TO 2 TABLETS BY MOUTH EVERY 6 HOURS NEEDED active Not Available Not Available No t Available doxycycline hyclate 100 mg capsule TAKE ONE CAPSULE BY MOUTH TWICE A DAY FOR 7 DAYS 06/20 completed Not Available Not Available Not Available azithromyci n 250 mg tablet TAKE TWO TABLETS BY MOUTH ON DAY 1, THEN TAKE ONE TABLET ONE TIME DAILY ON DAYS 2-5 06/20 completed Not Available Not Available Not Available ampicillin 500 mg capsule active Not Available Not Available Not Available hydrocodone 5 mg-acetamin ophen 325 mg tablet TAKE ONE-HALF TABLET BY MOUTH EVERY 4 TO 6 HOURS NEEDED FOR PAIN active Not Available Not Available No t Available prednisone 20 mg tablet TAKE TWO TABLETS BY MOUTH EVERY DAY FOR 5 DAYS 06/20 completed Not Available Not Available Not Available amlodipine 5 mg tablet TAKE ONE TABLET BY MOUTH EVERY DAY active Not Available Not Available No t Available amoxicillin 875 mg tablet TAKE ONE TABLET BY MOUTH TWICE A DAY 06/20 completed Not Available Not Available Not Available tamsulosin 0.4 mg capsule TAKE ONE CAPSULE BY MOUTH TWICE A DAY active Not Available Not Available No t Available sodium bicarbonate 650 mg tablet TAKE TWO TABLETS (1,300 MG TOTAL) BY MOUTH EVERY MORNING AND 2 TABLETS (1,300 MG TOTAL) EVERY EVENING active Not Available Not Available No t Available amlodipine 10 mg tablet TAKE ONE TABLET BY MOUTH ONE TIME DAILY active Not Available Not Available No t Available pantoprazol e 40 mg tablet,tashi yed release 40mg 1/day active Not Available Not Available No t Available lisinopril 10 mg tablet 10mg 1/day active Not Available Not Available No t Available azelastine 137 mcg (0.1 %) nasal spray USE 2 SPRAY IN AFFECTED NOSTRIL(S ) EVERY MORNING active Not Available Not Available No t Available testosteron e cypionate 200 mg/mL intramuscul ar oil INJECT 1ML INTRAMUSC ULARLY EVERY 2 WEEKS active Not Available Not Available No t Available ibuprofen 600 mg tablet TAKE ONE TABLET BY MOUTH EVERY 6 TO 8 HOURS NEEDED active Not Available Not Available No t Available cefdinir 300 mg capsule TAKE ONE CAPSULE BY MOUTH EVERY 12 HOURS FOR 7 DAYS 06/20 completed Not Available Not Available Not Available fluticasone propionate 50 mcg/actuati on nasal spray,suspe nsion ADMINISTE R 2 SPRAYS INTO THE AFFECTED NOSTRIL(S ) EVERY EVENING active Not Available Not Available No t Available rosuvastati n 10 mg tablet TAKE ONE TABLET BY MOUTH EVERY DAY active Not Available Not Available No t Available vitamin B12 0.5 mg-folic acid 1 mg tablet 1000mg 1/day active Not Available Not Available No t Available chlorhexidi ne gluconate 0.12 % mouthwash RINSE MOUTH WITH 15MLS FOR 30 SECONDS IN THE MORNING AND IN THE EVENING AFTER TOOTHBRUS KRISTYN active Not Available Not Available No t Available sodium bicarbonate 2600mg 4/day active Not Available Not Available No t Available tamsulosin 0.8mg 1/day active Not Available Not Available No t Available testosteron e cypionate 200soln Every other week active Not Available Not Available No t Available amlodipine 5mg 1/day active Not Available Not Available Not Available Vitamin D3 2000iu 1/day active Not Available Not Available No t Available BD Integra Syringe 3 mL 25 gauge x 1 USE 1 SYRINGE EVERY 2 WEEKS active Not Available Not Available No t Available Ozempic 1mg 1 weekly active Not Available Not Available No t Available FreeStyle Daphne 14 Day Sensor kit APPLY ONE SENSOR TO THE BACK OF YOUR UPPER ARM. REPLACE EVERY 14 DAYS active Not Available Not Available No t Available rosuvastati n 10 mg sprinkle capsule 10mg 1/day active Not Available Not Available No t Available Ozempic 1 mg/dose (4 mg/3 mL) subcutaneou s pen injector INJECT 1 MG (0.75 ML) UNDER THE SKIN EVERY WEEK active Not Available Not Available No t Available Vitals Date Recorded Body weight Provider Name an d Address Organization Details Last Updated DateTime 06/20/2024 083973.87 g Haily De Jesus [place] [facility] 06/20/2024 15:22:46 Date Recorded Body height Body mass index (BMI) Provider Name and Address Organization Details Last Updated DateTime 06/20/2024 180.34 cm 35.3 kg/m2 Not Available Health Note 15:22:25 Social History Question Answer Notes LastModified by [employer] Details LastModified Time Tobacco Smoking Status Former Smoker Not Available Health Note 06/16/2024 19:29:11 What Is Your Level Of Caffeine Consumption? Moderate [email or web address] Information not available 06/16/2024 How Much Tobacco Do You Chew? None [email or web address] Information not available 06/16/2024 When Did You Quit Smoking? 16+yearssince lastcigarette [email or web address] Information not available 06/20/2024 What Was The Date Of Your Most Recent Tobacco Screening? 06/20/2024 [email or web address] Information not available 06/16/2024 What Is Your Relationship Status? [email or web address] Information not available 06/16/2024 Are You Sexually Active? No [email or web address] Information not available 06/16/2024 Has Tobacco Cessation Counseling Been Provided? No [email or web address] Information not available 06/20/2024 How Many Years Have You Smoked Tobacco? 2 [email or web address] Information not available 06/16/2024 How Many Days In The Past Year Have You Consumed 5 Or More Drinks? 0 [email or web address] Information no t available 06/16/2024 Sex: Unknown Functional Status Question Answer Note LastModified by [employer] Details LastModified Time Do you use any illicit or recreational drugs? No [email or web address] Information not available 06/16/2024 Do you or have you ever used any other forms of tobacco or nicotine? No [email or web address] Information not available 06/20/2024 What is your level of alcohol consumption? None [email or web address] Information not available 06/20/2024 Do you or have you ever used smokeless tobacco? Never used smokeless tobacco [email or web address] Information not available 06/16/2024 Do you or have you ever used e-cigarettes or vape? Never used electronic cigarettes [email or web address] Information not available 06/16/2024 Mental Status None recorded. Family History Relationship Description Onset Age of this Age Resolved Age Notes LastModified by Organization Details LastModified Time Unspecified Relation Family history unknown [email or web address] Not available 2023 19:29:10 Medical History Condition Response Sexually Transmitted Infection N Diabetes Y Bleeding Disorder N High Blood Pressure N Kidney Stones N Cancer Y Depression N Lung Disease N High Cholesterol N GERD/Acid Reflux N Heart Disease N Immunizations Vaccine Type Date Status Note Provider Nam e and Address Organization Details Recorded Time zoster live 3 completed Not Available Health Note 06/16/2024 19:29:14 SARS-COV-2 (COVID-19) vaccine, UNSPECIFIED 2 completed Not Available Health Note 06/16/2024 19:29:14 pneumococcal, unspecified formulation 3 completed Not Available Health Note 06/16/2024 19:29:14 influenza, unspecified formulation 3 completed Not Available Health Note 06/16/2024 19:29:14 Past Encounters Encounter ID Performer Location Encounter Start Date Encounter Closed Date Diagnosis/Indication Diagnosis SNOMED-CT Code Diagnosis ICD10 Code Diagnosis Note [id number] Nitza Sparks PA-C [facility] [address] [place] [phone] 06/20/2024 15:19:43 06/21/2024 09:27:05 Lower urinary tract symptoms due to benign prostatic hypertrophy 2987075573 9101 N40.1 Increased frequency of urination 066520286 R35.0 Health Concerns Section Related Observation LastModified by Organization Detai ls LastModified Time None Recorded Concern Status LastModified by Organization Details LastModified Time None Recorded Advance Directives Directive None Recorded Payers Insurance Date Sequence Insurance Name Policy Number Policy Rodríguez Covered Member ID Rodríguez Member ID Guarantor Name 06/17/2024 2 [place] [employer] Pillo Cardenas [id number] Pillo Cardenas 06/29/2024 1 [place] [id number] Pillo Cardenas [id number] Pillo Cardenas Notes Date Note Type Note Provider Name and Address Organization Details Recorded Time 06/20/2024 text/html This is a 74 yea r old male who is referred for the evaluation and management of benign prostatic hyperplasia with lower urinary tract symptoms. He has been struggling with irritative lower urinary tract symptoms for nocturiaHis most bothersome symptoms are increased urinary frequency.He denies gross hematuria.There is no history of recurrent urinary tract infections.There is no history of urinary retention.Current medical therapy includes tamsulosin 0.8mg.Pt has h/o sleep apnea-uses oral deviceNo constipationCoffee- 1-3 cups FOS: moderate/weak, continuous with terminal dribbling, No straining or pushing. No hesitancy. NF: 3-4 DF: ever 3-4 hrs. no issues during the day. He is participating in prostate cancer screening.His most recent prostate specific antigen was normal (according to pt. Records are not available)There is no family history of prostate cancer. PMHx: CKD, DM, Orchiectomy in 2019 at [facility] due to L testicular mass. Testosterone has been very low since then. Currently seeing an trailer steerer in regards to testosterone PVR: 44mlIPSS: 23 Nitza Sparks PA-C [address] [place] [address],[address], [place], [address], [facility] 06/20/2024 17:15:41
--- OUTSIDE RECORDS SUMMARY | 2025-04-22 10:09 | XMS_ITS | Encounter Summary ---
Author Organization [place] Address [address] [place] [address] Care Team Providers Care Linseed Oil Order Filler Name Role Phone Alex Rao MD Primary Care Provider Nate Leong MD Unavailable [phone] Sharri Hdez MD Unavailable Alex Rao MD Unavailable [phone] Alex Rao MD Unavailable [phone] Russell Agosto MD Unavailable [phone] Magdalena Fry MD Unavailable Doris Chaney [facility] Unavailable Doris Chaney [facility] Unavailable [phone] Canelo Kelley MD Unavailable Reason for Visit * Reason Comments Medication Refill Encounter Details Date Type Department Care Team (Late st Contact Info) Description 10/15/[address] [phone] Alex Rao MD [address] [place] [address] Medication Refill Social History Tobacco Use [...] AM CDT 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 Gender Identity Male 11/22/2018 10:40 AM ALUMINUM BOATS ASSEMBLER Sexual Orientation Straight 11/22/2018 10 :40 AM ALUMINUM BOATS ASSEMBLER Occupation Industry Job Start Date Job 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- [employer] Not on file Not on file Not on file documented as of this encounter Plan of Treatment Upcoming Encounters Date Type Department Care Team (Late st Contact Info) Description 06/30/2025 Ancillary Procedure [address] [phone] Magdalena Fry MD [address] [place] [id number] 10/02/2025 Ancillary Procedure [address] [address] Magdalena Fry MD [address] [place] [phone] documented as of this encounter Visit Diagnoses Diagnosis Type 2 diabetes mellitus without complication, without long-term current use of insulin (H) documented in this encounter Additional Health Concerns Assessment Noted Time PHQ-9 Depression Total Score: 9 06/10/20 22 11:44 AM CDT documented as of this encounter Care Teams Linseed Oil Order Filler Relationship Specialty Start Date End Date Alex Rao MD PCP - General Internal Medicine 09/19/19 Nate Leong MD [address] [address] [place] [address] Assigned Surgical Provider 08/17/20 11/07/22 Sharri Hdez MD [address] [facility] [address] [facility] [address] [place], [place] [address] Assigned Endocrinology Provider 12/16/20 03/16/24 Alex Rao MD [address] [place], [place] [phone] Assigned PCP 03/21/21 Alex Rao MD [address] [place], [place] [phone] Referring Physician Internal Medicine 04/02/22 Russell Agosto MD [address] [facility] [address] [place], [place] [address] Neurology 04/02/22 Magdalena Fry MD [address] [facility] [address] [place], [place] [address] Assigned Heart and Vascular Provider 04/26/22 02/15/24 Doris Chaney [facility] [address] [address] Pharmacist Pharmacist 07/21/22 Doris Chaney [facility] [address] [address] Assigned MTM Pharmacist 07/26/2202/14 [place] [address] [address] Nephrology 05/14/23 documented as of this encounter
--- OUTSIDE RECORDS SUMMARY | 2025-04-22 10:09 | XMS_ITS | Encounter Summary ---
Author Organization [place] Address [address] [place] [address] Care Team Providers Care Newswriter Name Role Phone Alex Rao MD Primary Care Provider [phone] Sharri Hdez MD Unavailable [phone] Alex Rao MD Unavailable [phone] Alex Rao MD Unavailable [phone] Russell Agosto MD Unavailable [phone] Magdalena Fry MD Unavailable Doris Chaney [facility] Unavailable Doris Chaney [facility] Unavailable Canelo Kelley MD Unavailable Encounter Details Date Type Department Care Team (Late st Contact Info) Description 01/16/2023 [facility] Medical Advice [facility] [address] [place] [address] [place] Social History Tobacco Use Types Packs/Day Years [...] AM CDT 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 Gender Identity Male 11/22/2018 10:40 AM OPERATIONS PLANT ATTENDANT Sexual Orientation Straight 11/22/2018 10 :40 AM OPERATIONS PLANT ATTENDANT Occupation Industry Job Start Date Job 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- [employer] Not on file Not on file Not on file documented as of this encounter Plan of Treatment Upcoming Encounters Date Type Department Care Team (Late st Contact Info) Description 06/30/2025 Ancillary Procedure [address] [phone] Magdalena Fry MD [address] [place] [address] 10/02/2025 Ancillary Procedure [address] [phone] Magdalena Fry MD [address] [place] [phone] documented as of this encounter Visit Diagnoses Not on filedocumented in this encounter Additional Health Concerns Assessment Noted Time PHQ-9 Depression Total Score: 9 06/10/20 22 11:44 AM CDT documented as of this encounter Care Teams Newswriter Relationship Specialty Start Date End Date Alex Rao MD PCP - General Internal Medicine 09/19/19 Sharri Hdez MD [address] [place] [address] [address] [place] [address] Assigned Endocrinology Provider 12/16/20 03/16/24 Alex Rao MD [address] [place] [address] Assigned PCP 03/21/21 Alex Rao MD [address] [place] [address] Referring Physician Internal Medicine 04/02/22 Russell Agosto MD [address] [address] Neurology 04/02/22 Magdalena Fry MD [address] [address] Assigned Heart and Vascular Provider 04/26/22 02/15/24 oDris Chaney [facility] [address] [phone] Pharmacist Pharmacist 07/21/22 Doris Chaney [facility] [address] [phone] Assigned MTM Pharmacist 07/26/2202/14 [place] [address] [phone] Nephrology 05/14/23 documented as of this encounter
--- OUTSIDE RECORDS SUMMARY | 2025-04-22 10:09 | XMS_ITS | Encounter Summary ---
Author Organization [facility] Address [address] [place] [address] Care Team Providers Care Relay Motorman Name Role Phone Alex Rao MD Primary Care Provider [phone] Sharri Hdez MD Unavailable [phone] Alex Rao MD Unavailable [phone] Alex Rao MD Unavailable [phone] Russell Agosto MD Unavailable [phone] Magdalena Fry MD Unavailable Doris Chaney [facility] Unavailable [phone] Doris Chaney [facility] Unavailable Canelo Kelley MD Unavailable Reason for Visit * Reason Comments Medication Refill Encounter Details Date Type Department Care Team (Late st Contact Info) Description 11/30/[address] [phone] Alex Rao MD [address] [place] [address] Medication Refill Social History Tobacco Use [...] AM CDT Legal Sex Male 4:10 AM DOCUMENT PROCESSOR Gender Identity Male 11/22/2018 10:40 AM DOCUMENT PROCESSOR Sexual Orientation Straight 11/22/2018 10 :40 AM DOCUMENT PROCESSOR Occupation Industry Job Start Date Job 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 Unable to assess 12/03/2022 5:50 AM DOCUMENT PROCESSOR documented as of this encounter Miscellaneous Notes * Telephone Encounter - Katherin Blackmon CMA - 12/09/2022 9:58 AM CST Have not heard back from pt. Unable to close encounter until med is approved or denied. Will send back to provider MENT PROCESSOR * Telephone Encounter - Caitlin Martinez - 12/01/2022 2:23 PM CST Called pt and LVM. Also sent [employer] message. MENT PROCESSOR * Telephone Encounter - Beni Puga MD PhD - 12/01/2022 12:23 PM CST This was not prescribed by Dr. Rao in the past. Please check with patient if he has a urologist who prescribed this for him before. MENT PROCESSOR documented in this encounter Plan of Treatment Upcoming Encounters Date Type Department Care Team (Late st Contact Info) Description 06/30/2025 Ancillary Procedure [address] [place] [address] Magdalena Fry MD [address] [place] [address] 10/02/2025 Ancillary Procedure [facility] [address] [facility] [address] [place] [phone] Magdalena Fry MD [address] [place] [id number] documented as of this encounter Visit Diagnoses Diagnosis BPH with obstruction/lower urinary tract symptoms- Primary Hypertrophy of prostate with urinary obstruction and other lower urinary tract symptoms (LUTS) documented in this encounter Additional Health Concerns Assessment Noted Time PHQ-9 Depression Total Score: 9 06/10/20 11:44 AM CDT documented as of this encounter Care Teams Relay Motorman Relationship Specialty Start Date End Date Alex Rao MD PCP - General Internal Medicine 09/19/19 Sharri Hdez MD [address] [place] [address] [address] [place] [address] Assigned Endocrinology Provider 12/16/20 03/16/24 Alex Rao MD [address] [place], [place] [address] Assigned PCP 03/21/21 Alex Rao MD [address] [place] [address] Referring Physician Internal Medicine 04/02/22 Russell Agosto MD [address] [place] [id number] Neurology 04/02/22 Magdalena Fry MD [address] [place] [address] Assigned Heart and Vascular Provider 04/26/22 02/15/24 Doris Chaney [facility] [address] [place] [address] Pharmacist Pharmacist 07/21/22 Doris Chaney [facility] [address] [place] [place] [phone] Assigned MTM Pharmacist 07/26/2202/14 [place] [address] [place] [address] Nephrology 05/14/23 documented as of this encounter
--- OUTSIDE RECORDS SUMMARY | 2025-04-22 10:09 | XMS_ITS | Encounter Summary ---
Author Organization [facility] Address [address] [place] [address] Care Team Providers Care Coastal Tug Mate Name Role Phone Alex Rao MD Primary Care Provider [phone] Sharri Hdez MD Unavailable [phone] Alex Rao MD Unavailable [phone] Alex Rao MD Unavailable [phone] Russell Agosto MD Unavailable [phone] Magdalena Fry MD Unavailable Doris Chaney [facility] Unavailable [phone] Doris Chaney [facility] Unavailable [phone] Canelo Kelley MD Unavailable Encounter Details Date Type Department Care Team (Late st Contact Info) Description 03/06/2023 [facility] [address] [place] [address] Emilee Linares Social History Tobacco [...] AM CDT Legal Sex Male 4:10 AM DATA MANAGEMENT SPECIALIST Gender Identity Male 11/22/2018 10:40 AM DATA MANAGEMENT SPECIALIST Sexual Orientation Straight 11/22/2018 10 :40 AM DATA MANAGEMENT SPECIALIST Occupation Industry Job Start Date Job 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 Unable to assess 03/05/2023 6:06 AM CDT documented as of this encounter Plan of Treatment Upcoming Encounters Date Type Department Care Team (Late st Contact Info) Description 06/30/2025 Ancillary Procedure [address] [address] Magdalena Fry MD [address] [place] [address] 10/02/2025 Ancillary Procedure [address] [address] Magdalena Fry MD [address] [place] [address] documented as of this encounter Visit Diagnoses Not on filedocumented in this encounter Additional Health Concerns Assessment Noted Time PHQ-9 Depression Total Score: 9 06/10/20 22 11:44 AM CDT documented as of this encounter Care Teams Coastal Tug Mate Relationship Specialty Start Date End Date Alex Rao MD PCP - General Internal Medicine 09/19/19 Sharri Hdez MD [address] [place] [address] [id number] Assigned Endocrinology Provider 12/16/20 03/16/24 Alex Rao MD [address] [place] [address] Assigned PCP 03/21/21 Alex Rao MD [address] [place] [address] Referring Physician Internal Medicine 04/02/22 Russell Agosto MD [address] [address] Neurology 04/02/22 Magdalena Fry MD [address] 140[address] Assigned Heart and Vascular Provider 04/26/22 02/15/24 Doris Chaney [facility] [address] [phone] Pharmacist Pharmacist 07/21/22 Doris Chaney [facility] [address] [place] [phone] Assigned MTM Pharmacist 07/26/2202/14 [place] [address] [place] [address] Nephrology 05/14/23 documented as of this encounter
--- OUTSIDE RECORDS SUMMARY | 2025-04-22 10:09 | XMS_ITS | Clinical Summary ---
Author Organization [facility] Address [address] [place] [address] Care Team Providers Care Machine Greaser Name Role Phone Elsewhere, Pcp Primary Care Provider Unavailabl e Source Comments Patient records contain information from all sites at [facility]. For routine questions regarding patient records, call [phone] during business hours, M-F 8:00 AM - 5:00 PM Central Time. Record requests for emergency care only can be directed to [phone] at any time.[facility] Allergies Active Allergy Reactions Criticality Noted Date Comments Animal Dander Other (see comments),Shortness of breath (Reselect Reaction),Swelling 04/18/2011 Other Reaction(s): eye swelling Sulfa (Sulfonamide Antibiotics) Other (see comments),Rash High 02/22/2004 Other Reaction(s): facial swelling, flushing, Not available Sulfamethoprim Ds Rash 02/22/2013 Medications Jardiance 10 mg tablet Take 10 mg by mouth daily. Active FreeStyle Daphne 14 Day Sensor kit APPLY 1 SENSOR TO BACK OF UPPER ARM REPLACING ONCE EVERY 14 DAYS 01/25/20 25 Active BD Luer-Juan R Syringe 3 mL 25 gauge x 1 syringe USE 1 SYRINGE EVERY 2 WEEKS 11/19/19 25 Active testosterone cypionate (Depo-Testoster one) 200 mg/mL injection Inject 200 mg intramuscularly every 7 (seven) days. Every two weeks on Fridays02/18/20 22 Active semaglutide (Ozempic) 1 mg/dose (4 mg/3 mL) injectionIndica tions:Diabetes Mellitus Type 2 (HCC) Inject 1 mg under the skin every 7 (seven) days. Sundays 3 mL 11 02/21/20 25 Active co-enzyme Q-10 (Co Q-10) 100 mg capsule Take 1 capsule (100 mg total) by mouth daily. HOLD until able to take medications by mouth. 02/22/20 Active cyanocobalamin (Vitamin B-12) 1,000 mcg tablet Take 1.5 tablets (1,500 mcg total) by mouth daily. HOLD until able to take medications by mouth. 02/22/20 Active Lactobacillus rhamnosus GG (Culturelle) 10-15 billion cell capsule Take 1 capsule by mouth every morning. HOLD until able to take medications by mouth. 02/22/20 Active pantoprazole (Protonix) 40 mg EC tablet Take 1 tablet (40 mg total) by mouth daily. HOLD until able to take medications by mouth. 02/22/20 Active sodium bicarbonate 650 mg tablet Take 1 tablet (650 mg total) by mouth 4 (four) times a day. HOLD until able to take medications by mouth. 02/22/20 Active tamsulosin (Flomax) 0.4 mg 24 hr capsule Take 2 capsules (0.8 mg total) by mouth daily. HOLD until able to take medications by mouth. 02/22/20 Active acetaminophen (TylenoL) 500 mg tablet Administer 2 tablets (1,000 mg total) via gastric tube every 6 (six) hours. 02/22/20 Active lisinopriL 10 mg tablet Administer 1 tablet (10 mg total) via gastric tube daily. 02/22/20 25 Active rosuvastatin (Crestor) 10 mg tablet Administer 1 tablet (10 mg total) via gastric tube daily. 02/22/20 Active esomeprazole (NexIUM) [address] capsule Administer 1 capsule (40 mg total) via gastric tube daily before morning meal for 7 days. 7 capsule 1:42 PM CDT 02/23/20 Active sodium chloride (Trigg) 0.65 % nasal spray Administer 1 spray into each nostril as needed for congestion. 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 Diabetes Mellitus Type 2 06/19/2023 Hypertensive Chronic Kidney Disease With Stage 1 Through Stage 4 Chronic Kidney Disease, Or Unspecified Chronic Kidney Disease 06/19/2023 Presence Of Right Artificial Hip Joint Patent Foramen Ovale 04/17/2022 Benign Prostatic Hyperplasia [...] Gastroesophageal Reflux Disease Without Esophagi tis 02/22/2004 Encounters Date Type Department Care Team Description 04/03/2025 Ancillary Procedure Department of radar engineer 03/07/2025 2:00 PM CDT Comprehensive Visit Department of Dental Specialties in [place], [place] [address] [place] [address] Yuliya Almeida D.D.S., M.S. Malignant Neoplasm Of Mouth (HCC); 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) 03/07/2025 9:49 AM CDT - 03/07/2025 12:54 PM CDT Hospital Encounter Division of radar engineer in [place], [place] [address] [place] [address] Dallas Lubin APRN, C.N.P., D.N.P. Cellulitis Leg Right (Primary Dx); Follow Up Surgery Exam; 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); Reconstruction Maxilla Status Post 03/07/2025 Orders Only Division of radar engineer in [place], [place] [address] [place] [phone] Makenna Austin L.D.A. 02/28/2025 Orders Only Division of radar engineer in [place], [place] [address] [place] [phone] Dallas Lubin APRN C.N.P., D.N.P. Reconstruction Maxilla Status Post (Primary Dx) 02/27/2025 10:05 AM CDT Ancillary Procedure Department of radar engineer 02/27/2025 9:18 AM CDT - 02/27/2025 11:59 PM CDT Hospital Encounter Division of radar engineer in [place], [place] [address] [place] [phone] Dallas Lubin APRN, C.N.P., D.N.P. Discharge Disposition: Home or Self Care 02/27/2025 9:12 AM CDT - 02/27/2025 9:17 AM CDT Hospital Encounter Division of radar engineer in [place], [place] [address] [place] [phone] Dallas Lubin APRN, C.N.P., D.N.P. Follow Up Surgery Exam (Primary Dx); 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); Reconstruction Maxilla Status Post 02/27/2025 Orders Only Division of radar engineer in [place], [place] [address] [place] [phone] Yasemin Pierce L.D.A. 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) (Primary Dx); Reconstruction Maxilla Status Post; Follow Up Surgery Exam; Malignant Neoplasm Of Mouth (HCC) 02/24/2025 Clinical Communication Department of Dental Specialties in [place], [place] [address] [place] [phone] Yuliya Almeida D.D.S., M.S. Reschededuardo 02/24/2025 Clinical Communication Division of radar engineer in [address] [phone] Baljit Ramsey M.D., D.D.S. 02/23/2025 10:00 AM CDT Office Visit Division of radar engineer in [place], [place] [address] [place] [phone] Liat Mitchell, Linda PERES, M.S. 02/22/2025 Clinical Communication Division of radar engineer in [place], [place] [address] [place] [address] Baljit Ramsey M.D., D.D.S. 02/20/2025 2:55 PM CDT Ancillary Procedure Department of Radiology in [place], [place] [address] [place] [phone] Baljit Ramsey M.D., D.D.S. 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) 02/17/2025 5:15 PM CDT Ancillary Procedure Department of Nursing 02/14/2025 7:36 AM CDT Anesthesia Event [facility] OR [address] [place] [phone] Lane Saucedo M.D., M.P.H. 02/14/2025 7:15 AM CDT - 02/14/2025 3:48 PM CDT Surgery [facility] OR [address] [place] [phone] Baljit Ramsey M.D., D.D.S. MAXILLECTOMY, PARTIAL, right, anterior maxilla. 02/14/2025 6:24 AM CDT - 02/21/2025 3:17 PM CDT Hospital Encounter [facility], Sixth Floor [address] [place] [phone] Baljit Ramsey M.D., D.D.S. Dysphagia Oral Phase (Primary Dx); 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); Decline Functional Status [R53.81]; Dietary Counseling And Surveillance For Enteral Nutrition; Diabetes Mellitus Type 2 (HCC); Wound Care Skin Post Surgery Discharge Disposition: Home or Self Care 02/14/2025 Ancillary Procedure Department of radar engineer 02/13/2025 Ancillary Procedure Department of radar engineer 02/10/2025 12:05 AM CDT Ancillary Procedure Department of Diagnostic Radiology 02/10/2025 Ancillary Procedure Department of Diagnostic Radiology 02/09/2025 2:00 PM CDT Comprehensive Visit Preoperative Evaluation Center in [place], [place] [address] [place] [address] Baljit Ramsey M.D., D.D.S. Sea Cleary M.D. 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 Preanesthetic Medical Exam; Diabetes Mellitus Type 2 (HCC); Anemia Discharge Disposition: Home or Self Care 02/09/2025 Orders Only Preoperative Evaluation Center in [place], [place] [address] [place] [address] Byron Seo, M.S.N., R.N. Anemia (Primary Dx) 02/02/2025 Clinical Communication Division of radar engineer in [place], [place] [address] [place] [address] Baljit Ramsey M.D., D.D.S. from Last 3 Months Social History Tobacco Use Types Packs/Day Years Used Date Smoking Tobacco: Former Cigarettes 0.3 4 0 1970 - 1974 Smokeless Tobacco: Never Alcohol Use Standard Drinks/Week Comments Not Currently 0 (1 standard drink = 0.6 oz pur e alcohol) [facility] Utilities Answer Date Recorded In the past 12 months has e [employer], gas, oil, or water [employer] threatened to shut off services in your [...] money to buy more. Never true 02/15/20 Within the past 12 months, t he [...] your living situation today? 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 TECH Gender Identity Male 01/06/2025 6:20 PM CDT Sexual Orientation Straight 01/06/2025 6: 20 PM CDT Last Filed Vital Signs Vital Sign Reading Time Taken Comments Blood Pressure 159/66 02/21/2025 2:25 PM CDT Pulse 80 02/21/2025 2:25 PM CDT Temperature 35.8 C (96.4 F) 02/21/2025 2:25 PM CDT Respiratory Rate 18 02/21/2025 2:25 PM CDT Oxygen Saturation 100% 02/21/2025 2:25 PM CDT Inhaled Oxygen Concentration - - Weight 107 kg (236 lb 12.4 oz) 02/19/2025 8:00 A M CDT Height 182.9 cm (6' 0.01) 02/15/2025 7:52 AM CD T Body Mass Index 32.11 02/15/2025 7:52 AM CDT Plan of Treatment Upcoming Encounters Date Type Department Care Team (Latest Contact Info) Description 05/24/2025 8:00 AM CDT Appointment Department of Laboratory Medicine and Pathology, [facility] in [place], [place] [address] [place] [phone] Lexsu Olson APRN, C.N.P. [address] [place] [phone] 05/24/2025 9:00 AM CDT Clinical Support Department of Nutrition and Diabetes Education in [place], [place] [address] [place] [phone] Lexus Olson APRN, C.N.P. [address] [place] [phone] Elizabeth Arias, Margarita.S.N., R.N. [address] [place] [phone] 05/24/2025 10:15 AM CDT Appointment Department of Radiology, [facility], in [place], [place] [address] [place] [phone] Dallas Lubin APRN, C.N.P., D.N.P. [address] [place] [phone] 05/24/2025 11:00 AM CDT Appointment Division of radar engineer in [place], [place] [address] [place] [phone] Dallas Lubin APRN, C.N.P., D.N.P. [address] [place] [phone] 05/24/2025 1:30 PM CDT Comprehensive Visit Division of Endocrinology in [place], [place] [address] [place] [phone] Monik Moreland APRN, C.N.P., M.S. [address] [place] [phone] 06/20/2025 9:30 AM CDT Office Visit Department of Dental Specialties in [place], [place] [address] [place] [phone] Marisol Sandra D.D.S. [address] [place] [phone] Health Maintenance Due Date Last Done Comments CT Colonography 1950 Cologuard 1950 Diabetic Office Visit with Foot Exam 1950 Dilated Eye Exam 1950 Hepatitis C Screening 1950 Urine Albumin 1950 Hepatitis B Vaccines (1 of 3 - Risk 3-dose series) 2010 RSV vaccine - (32-36 weeks) or 60+ years (1 - Risk 60-74 years 1-dose series) 2010 COVID-19 Vaccine ( season) 2024 07/16/2022, 03/22/2021, 03/01/2021 Depression Screening (Annual PHQ-2) 10/26/2024 Hemoglobin A1C 08/11/2025 02/09/2025, 06/0 10/2022, 09/10/2022, Additional history exists Office Visit for Blood Pressure Check / Re-check 02/09/2026 02/09/2025 Creatinine Level (Kidney Function Test) 02/17/2026 02/17/2025, 02/16/2025, 02/15/2025, Additional history exists Potassium Level 02/17/2026 02/17/2025, 01/25, 02/15/2025, Additional history exists Sodium Level 02/17/2026 02/17/2025, 01/25, 02/15/2025, Additional history exists Lipid (Cholesterol) Screening 03/26/2028 03/26/2023, 02/10/2022, 03/22/2021, Additional history exists Colonoscopy 04/22/2028 04/22/2023 Colorectal Cancer Surveillance 04/22/2028 DTaP,Tdap,and Td Vaccines (3 - Td or Tdap) 03/26/2033 03/26/2023, 01/04/2013, 10/12/2003, Additional history exists Pneumococcal vaccine (50+ years) Completed 10/26/2022, 10/28/2016, 08/23/2015, Additional history exists Zoster Vaccines Completed 10/26/2022, 05/26, 08/06/2021, Additional history exists Abdominal Aortic Aneurysm (AAA) Screen Completed 2023 Influenza Vaccine Completed 07/22/2024, , 10/26/2022, Additional history exists Fall Risk Screen (Annual) Completed 02/14/2025 IPV Vaccines Aged Out No longer eligi ble based on patient's age to complete this topic Medical Devices Implanted Type Area Inspector Elevators Device Identifier Shelf Expiration Date Model / Serial / Lot Cardiac Other Cardiac Other Left: Chest Description:Loop Recorder (b alysha recorded by [facility]) Clp Summers Ti Mcr - [id number] Implanted:Qt y: 1 on 02/14/2025 by Baljit Ramsey M.D., D.D.S. at [facility] Hardware e.g. pins/screws/mickey s Right: Neck Synovis [id number] / / Clp Summers Ti Mcr - [id number] Implanted:Qt y: 1 on 02/14/2025 by Baljit Ramsey M.D., D.D.S. at [facility] Hardware e.g. pins/screws/mickey s Right: Neck Synovis [id number] / / Clp Summers Ti Mcr - [id number] 4 Implanted:Qt y: 1 on 02/14/2025 by Baljit Ramsey M.D., D.D.S. at [facility] Hardware e.g. pins/screws/mickey s Right: Neck Synovis [id number] / / Clp Summers Ti Mcr - [id number] Implanted:Qt y: 1 on 02/14/2025 by Baljit Ramsey M.D., D.D.S. at [facility] Hardware e.g. pins/screws/mickey s Right: Neck Synovis [id number] / / Clp Summers Ti Mcr - [id number] 4 Implanted:Qt y: 1 on 02/14/2025 by Baljit Ramsey M.D., D.D.S. at [facility] Hardware e.g. pins/screws/mickey s Right: Neck Synovis [id number] / / Clp Summers Ti Mcr - [id number] 4 Implanted:Qt y: 1 on 02/14/2025 by Baljit Ramsey M.D., D.D.S. at [facility] Hardware e.g. pins/screws/mickey s Right: Leg Synovis [id number] / / Clp Summers Ti Mcr - [id number] 4 Implanted:Qt y: 1 on 02/14/2025 by Baljit Ramsey M.D., D.D.S. at [facility] Hardware e.g. pins/screws/mickey s Right: Leg Synovis [id number] / / Clp Summers Ti Mcr - [id number] 4 Implanted:Qt y: 1 on 02/14/2025 by Baljit Ramsey M.D., D.D.S. at [facility] Hardware e.g. pins/screws/mickey s Right: Leg Synovis [id number] / / Clp Summers Ti Mcr - [id number] Implanted:Qt y: 1 on 02/14/2025 by Baljit Ramsey M.D., D.D.S. at [facility] Hardware e.g. pins/screws/mickey s Right: Leg Synovis [id number] / / Clp Apr Lgs Intnl Sm 9.0 - [id number] 4 Implanted:Qt y: 1 on 02/14/2025 by Baljit Ramsey M.D., D.D.S. at [facility] Hardware e.g. pins/screws/mickey s Right: Fibula Ethicon [id number] 10/25/2029 MCS20 / / [id number] Clp Apr Lgs Intnl Sm 9.0 - [id number] 4 Implanted:Qt y: 1 on 02/14/2025 by Baljit Ramsey M.D., D.D.S. at [facility] Hardware e.g. pins/screws/mickey s Right: Fibula Ethicon [id number] MCS20 / / Clp Apr Lgs Intnl Sm 9.0 - [id number] 4 Implanted:Qt y: 1 on 02/14/2025 by Baljit Ramsey M.D., D.D.S. at [facility] Hardware e.g. pins/screws/mickey s Right: Fibula Ethicon [id number] MCS20 / / Clp Apr Lgs Intnl Sm 9.0 - [id number] 4 Implanted:Qt y: 1 on 02/14/2025 by Baljit Ramsey M.D., D.D.S. at [facility] Hardware e.g. pins/screws/mickey s Right: Fibula Ethicon [id number] 10/25/2029 MCS20 / / [id number] Clp Apr Lgs Intnl Sm 9.0 - [id number] 4 Implanted:Qt y: 1 on 02/14/2025 by Sam Garg M.D., D.M.D. at [facility] Hardware e.g. pins/screws/mickey s Right: Fibula Ethicon [id number] MCS20 / / Clp Apr Lgs Intnl Sm 9.0 - [id number] 4 Implanted:Qt y: 1 on 02/14/2025 by Sam Garg M.D., D.M.D. at [facility] Hardware e.g. pins/screws/mickey s Right: Leg Ethicon [id number] 09/24/2029 MCS20 / / [id number] Clp Apr Lgs Intnl Sm 9.0 - [id number] 4 Implanted:Qt y: 1 on 02/14/2025 by Sam Garg M.D., Elsy. at [facility] Hardware e.g. pins/screws/mickey s Right: Leg Ethicon [id number] 10/25/2029 MCS20 / / [id number] Clp Apr Lg Int [facility] 9.75 - [id number] 4 Implanted:Qt y: 1 on 02/14/2025 by Sam Garg M.D., Elsy. at [facility] Hardware e.g. pins/screws/mickey s Right: Leg Ethicon [id number] / / Clp Apr Lgc Int [facility] 9.75 - [id number] 4 Implanted:Qt y: 1 on 02/14/2025 by Sam Garg M.D., Elsy. at [facility] Hardware e.g. pins/screws/mickey s Right: Leg Ethicon [id number] / / Clp Apr [facility] - [id number] 4 Implanted:Qt y: 1 on 02/14/2025 by Baljit Ramsey M.D., D.D.S. at [facility] Hardware e.g. pins/screws/mickey s Right: Neck Ethicon [id number] MCS20 / / Clp Summers Ti Mcr - [id number] 4 Implanted:Qt y: 1 on 02/14/2025 by Baljit Ramsey M.D., D.D.S. at [facility] Hardware e.g. pins/screws/mickey s Right: Neck Synovis [id number] 08/25/2029 [id number] / / [id number] Clp Apr Lg Int [facility] 9.75 - [id number] 4 Implanted:Qt y: 1 on 02/14/2025 by Baljit Ramsey M.D., D.D.S. at [facility] Hardware e.g. pins/screws/mickey s Right: Neck Ethicon MSM20 / / Clp Summers Ti Mcr - [id number] 4 Implanted:Qt y: 1 on 02/14/2025 by Baljit Ramsey M.D., D.D.S. at [facility] Hardware e.g. pins/screws/mickey s Right: Neck Synovis [id number] 08/25/2029 [id number] / / [id number] Clp Apr Lgs Intnl Sm 9.0 - [id number] 4 Implanted:Qt y: 1 on 02/14/2025 by Baljit Ramsey M.D., D.D.S. at [facility] Hardware e.g. pins/screws/mickey s Right: Neck Ethicon [id number] MCS20 / / Scrw Mxd Mandib [address] 2.0x9 - [id number] 4 Implanted:Qt y: 5 on 02/14/2025 by Baljit Ramsey M.D., D.D.S. at [facility] Hardware e.g. pins/screws/mickey s Right: Maxilla LAYLA Delgado 25-872-0 9-91 / / Drl Bit Mandib Ss 2 Scrw 1.5x5 - [id number] 4 Implanted:Qt y: 1 on 02/14/2025 by Baljit Ramsey M.D., D.D.S. at [facility] Hardware e.g. pins/screws/mickey s Right: Maxilla LAYLA Danny 25-449-1 6-91 / / Scrw Mandib Lck Maxd 2.0x7 - [id number] 4 Implanted:Qt y: 9 on 02/14/2025 by Baljit Ramsey M.D., D.D.S. at [facility] Hardware e.g. pins/screws/mickey s Right: Maxilla LAYLA Danny 25-882-0 7-91 / / Scrw Mandib Lck Maxd 2.0x9 - [id number] 4 Implanted:Qt y: 4 on 02/14/2025 by Baljit Ramsey M.D., D.D.S. at [facility] Hardware e.g. pins/screws/mickey s Right: Maxilla LAYLA Danny 25-882-0 9-91 / / Scrw Mandib Lck Maxd 2.0x11 - [id number] 4 Implanted:Qt y: 1 on 02/14/2025 by Baljit Ramsey M.D., D.D.S. at [facility] Hardware e.g. pins/screws/mickey s Right: Maxilla LAYLA Delgado 25-882-1 / / Scrw Lvl Lck Maxdrive 2.0x15 - [id number] 4 Implanted:Qt y: 3 on 02/14/2025 by Baljit Ramsey M.D., D.D.S. at [facility] Hardware e.g. pins/screws/mickey s Right: Maxilla LAYLA Delgado 25-882-1 / / Ips Imlant, Midface Implanted:Qt y: 1 on 02/14/2025 by Baljit Ramsey M.D., D.D.S. at [facility] Hardware e.g. pins/screws/mickey s Right: Maxilla LAYLA Delgado [id number] / / Cplr Summers Vasc Anstm 4 - [id number] Implanted:Qt y: 1 on 02/14/2025 by Baljit Ramsey M.D., D.D.S. at [facility] Hardware e.g. pins/screws/mickey s Right: Neck Synovis [id number] 04/08/2029 [id number] / / [id number] Clp Apr [facility] 9.[facility] - [id number] 4 Implanted:Qt y: 1 on 02/14/2025 by Baljit Ramsey M.D., D.D.S. at [facility] Hardware e.g. pins/screws/mickey s Right: Leg Ethicon MSM20 / / Clp Apr [facility] 9.75 - [id number] 4 Implanted:Qt y: 1 on 02/14/2025 by Baljit Ramsey M.D., D.D.S. at [facility] Hardware e.g. pins/screws/mickey s Right: Leg Ethicon MSM20 / / Clp Apr Lgs Intnl Sm 9.0 - [id number] 4 Implanted:Qt y: 1 on 02/14/2025 by Baljit Ramsey M.D., D.D.S. at [facility] Hardware e.g. pins/screws/mickey s Right: Neck Ethicon MCS20 / / Clp Apr Lgs Intnl Sm 9.0 - [id number] 4 Implanted:Qt y: 1 on 02/14/2025 by Baljit Ramsey M.D., D.D.S. at [facility] Hardware e.g. pins/screws/mickey s Right: Neck Ethicon MCS20 / / Clp Apr Lgs Intnl Sm 9.0 - [id number] 4 Implanted:Qt y: 1 on 02/14/2025 by Baljit Ramsey M.D., D.D.S. at [facility] Hardware e.g. pins/screws/mickey s Right: Neck Ethicon MCS20 / / Clp Summers Ti Mcr - [id number] 4 Implanted:Qt y: 1 on 02/14/2025 by Baljit Ramsey M.D., D.D.S. at [facility] Hardware e.g. pins/screws/mickey s Right: Neck Synovis [id number] / / Hip Implant Hip Implant Right: Hip [place] Tlc Slc Std+ Nt 3.3x12 - [id number] 4 Implanted:Qt y: 1 on 02/14/2025 by Baljit Ramsey M.D., D.D.S. at [facility] Maxillofacial Cranial Right: Maxilla Straumann 03/16/2029 035.7012 S / / FANV3 Description:Site #4 [place] Tlc Slc Std+ Nt 3.3x12 - [id number] 4 Implanted:Qt y: 1 on 02/14/2025 by Baljit Ramsey M.D., D.D.S. at [facility] Maxillofacial Cranial Right: Maxilla Straumann 03/16/2029 035.7012 S / / FANV3 Description:Site #5 [place] Tlc Slc Std+ Nt 3.3x12 - [id number] 4 Implanted:Qt y: 1 on 02/14/2025 by Baljit Ramsey M.D., D.D.S. at [facility] Maxillofacial Cranial Right: Maxilla Straumann 03/16/2029 035.7012 S / / FANV3 Description:Site #8 [place] Tlc Slc Std+ Nt 3.3x12 - [id number] 4 Implanted:Qt y: 1 on 02/14/2025 by Baljit Ramsey M.D., D.D.S. at [facility] Maxillofacial Cranial Right: Maxilla Straumann 03/16/2029 035.7012 S / / FANV3 Description:Site #9 Cap Cls Trcft Nt 1.5x4.0 - [id number] 4 Implanted:Qt y: 1 on 02/14/2025 by Baljit Ramsey M.D., D.D.S. at [facility] Maxillofacial Cranial Right: Maxilla Straumann 01/30/2029 036.0201 S / / EZZY5 Cap Cls Trcft Nt 1.5x4.0 - [id number] 4 Implanted:Qt y: 1 on 02/14/2025 by Baljit Ramsey M.D., D.D.S. at [facility] Maxillofacial Cranial Right: Maxilla Straumann 01/30/2029 036.0201 S / / EZZY5 Cap Cls Trcft Nt 1.5x4.0 - [id number] 4 Implanted:Qt y: 1 on 02/14/2025 by Baljit Ramsey M.D., D.D.S. at [facility] Maxillofacial Cranial Right: Maxilla Straumann 01/30/2029 036.0201 S / / EZZY5 Cap Cls Trcft Nt 1.5x4.0 - [id number] 4 Implanted:Qt y: 1 on 02/14/2025 by Baljit Ramsey M.D., D.D.S. 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) GLUCOSE POCT, B Routine 02/21/2025 11:44 AM CDT GLUCOSE POCT, B Routine 02/21/2025 6:34 AM CDT GLUCOSE POCT, B Routine 02/21/2025 2:53 AM CDT GLUCOSE POCT, B Routine 02/20/2025 9:46 PM CDT GLUCOSE POCT, B Routine 02/20/2025 8:59 PM CDT DX ANATOMIC MODELING CONSULTATION RAD - Routine (most inpatients and all outpatients) 02/20/2025 2:51 PM CDT 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) GLUCOSE POCT, B Routine 02/20/2025 1:31 PM CDT FL SWALLOW FUNCTION WITH VID EO AND SPEECH OR OT FOR RST RAD - Timed (for specific dates/times) 02/20/2025 10:17 AM CDT GLUCOSE POCT, B Routine 02/20/2025 6:02 AM CDT GLUCOSE POCT, B Routine 02/19/2025 9:33 PM CDT GLUCOSE POCT, B Routine 02/19/2025 5:23 PM CDT GLUCOSE POCT, B Routine 02/19/2025 12:02 PM CDT CBC WITHOUT DIFFERENTIAL, B STAT 01/25 8:09 AM CDT ADULT OXYGEN THERAPY Routine 02/19/2025 8:00 AM CDT GLUCOSE POCT, B Routine 02/19/2025 5:53 AM CDT GLUCOSE POCT, B Routine 02/18/2025 9:03 PM CDT GLUCOSE POCT, B Routine 02/18/2025 5:30 PM CDT GLUCOSE POCT, B Routine 02/18/2025 12:42 PM CDT AIRWAY CARE Routine 02/18/2025 8:00 AM CDT ADULT OXYGEN THERAPY Routine 02/18/2025 8:00 AM CDT GLUCOSE POCT, B Routine 02/18/2025 6:11 AM CDT GLUCOSE POCT, B Routine 02/17/2025 9:38 PM CDT ADULT OXYGEN THERAPY Routine 02/17/2025 8:00 PM CDT TRACHEOSTOMY REPLACEMENT Routine 025 6:59 PM CDT Dysphagia Oral Phase AIRWAY CARE Routine 02/17/2025 6:21 PM CDT AIRWAY CARE Routine 02/17/2025 6:21 PM CDT GLUCOSE POCT, B Routine 02/17/2025 6:06 PM CDT NURSING IMAGE EXAM Routine 02/17/2025 5:15 PM CDT GLUCOSE POCT, B Routine 02/17/2025 12:26 PM CDT ADULT OXYGEN THERAPY Routine 02/17/2025 8:00 AM CDT GLUCOSE POCT, B Routine 02/17/2025 5:10 AM CDT CBC WITHOUT DIFFERENTIAL, B Routine 01/25 3:29 AM CDT BASIC METABOLIC PANEL, S/P Routine 02/17 3:29 AM CDT GLUCOSE POCT, B Routine 02/16/2025 11:46 PM CDT ADULT OXYGEN THERAPY Routine 02/16/2025 8:00 PM CDT GLUCOSE POCT, B Routine 02/16/2025 7:00 PM CDT GLUCOSE POCT, B Routine 02/16/2025 2:04 PM CDT ADULT OXYGEN THERAPY Routine 02/16/2025 8:00 AM CDT TRACHEOSTOMY REPLACEMENT Routine 025 7:42 AM CDT 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) GLUCOSE POCT, B Routine 02/16/2025 7:16 AM CDT CBC WITHOUT DIFFERENTIAL, B Routine 01/25 3:31 AM CDT BASIC METABOLIC PANEL, S/P Routine 02/16 3:31 AM CDT GLUCOSE POCT, B Routine 02/15/2025 9:47 PM CDT ADULT OXYGEN THERAPY Routine 02/15/2025 8:01 PM CDT GLUCOSE POCT, B Routine 02/15/2025 6:12 PM CDT AIRWAY CARE Routine 02/15/2025 5:00 PM CDT GLUCOSE POCT, B Routine 02/15/2025 12:58 PM CDT AIRWAY CARE Routine 02/15/2025 8:00 AM CDT ADULT OXYGEN THERAPY Routine 02/15/2025 8:00 AM CDT GLUCOSE POCT, B Routine 02/15/2025 7:59 AM CDT AIRWAY CARE Routine 02/15/2025 6:23 AM CDT AIRWAY CARE Routine 02/15/2025 6:23 AM CDT PHOSPHORUS (INORGANIC), S Routine 2024 3:44 AM CDT MAGNESIUM, S Routine 02/15/2025 3:44 AM CDT CBC WITHOUT DIFFERENTIAL, B Routine 01/25 3:44 AM CDT BASIC METABOLIC PANEL, S/P Routine 02/15 3:44 AM CDT GLUCOSE POCT, B Routine 02/14/2025 10:15 PM CDT ADULT OXYGEN THERAPY Routine 02/14/2025 8:01 PM CDT ADULT OXYGEN THERAPY Routine 02/14/2025 5:28 PM CDT ADULT OXYGEN THERAPY Routine 02/14/2025 5:28 PM CDT ADULT OXYGEN THERAPY Routine 02/14/2025 5:28 PM CDT DX ABDOMEN PORTABLE ANTERIOR POSTERIOR 1 VIEW RAD - Routine (most inpatients and all outpatients) 02/14/2025 4:16 PM CDT ADULT OXYGEN THERAPY Routine 02/14/2025 3:36 PM CDT GLUCOSE POCT, B Routine 02/14/2025 2:23 PM CDT PATIENT STATUS, ABG STAT 02/14/2025 12:11 PM CDT GLUCOSE, WHOLE BLOOD STAT 02/14/2025 12:11 PM CDT POTASSIUM, B STAT 02/14/2025 12:11 PM CDT SODIUM, B STAT 02/14/2025 12:11 PM CDT CALCIUM, IONIZED, S/B STAT 02/14/2025 12:11 PM CDT ABG W/COOX STAT 02/14/2025 12:11 PM CDT SURGICAL PATHOLOGY, [facility] LAB Routine 0 02/14/2025 10:30 AM CDT 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) GLUCOSE POCT, B Routine 02/14/2025 9:36 AM CDT TYPE AND SCREEN Routine 02/14/2025 8:35 AM CDT LDA ANE ARTERIAL LINE INSERTION Routine 02/14/2025 8:22 AM CDT SD ARTL CATH/CNULA MONITOR PERC Routine 02/14/2025 8:22 AM CDT LDA ANE ENDOTRACHEAL AIRWAY Routine 01/25 7:46 AM CDT OTHER 02/14/2025 7:23 AM CDT 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) APPLICATION WOUND VACUUM 025 7:23 AM CDT 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) HARVESTING SPLIT THICKNESS SKIN WITH GRAFTING 02/14/2025 7:23 AM CDT 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) RECONSTRUCTION MAXILLA WITH ENDOSSEOUS IMPLANT 02/14/2025 7:23 AM CDT 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) ESOPHAGOGASTRODUODENOSCOPY - NASOGASTRIC/NASOJEJUNAL FEEDING TUBE PLACEMENT 02/14/2025 7:23 AM CDT 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) TRACHEOSTOMY 02/14/2025 7:23 AM CDT 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) NECK DISSECTION 02/14/2025 7:23 AM CDT 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) VASCULARIZED FIBULA JUNIE-OSSEOUSCUTANEOUS GRAFT TO MAXILLA 02/14/2025 7:23 AM CDT 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) MAXILLECTOMY - PARTIAL 7:23 AM CDT 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) GLUCOSE POCT, B Routine 02/14/2025 7:08 AM CDT ORAL AND MAXILLOFACIAL SURGE RY IMAGE EXAM Routine 02/14/2025 12:00 AM CDT ORAL AND MAXILLOFACIAL SURGE RY IMAGE EXAM Routine 02/13/2025 12:00 AM CDT RADIOLOGY 3D IMAGE EXAM Routine 02/11/20 12:05 AM CDT RADIOLOGY 3D IMAGE EXAM Routine 02/11/20 12:00 AM CDT ECG Routine 02/09/2025 12:54 PM CDT Preanesthetic Medical Exam CBC WITHOUT DIFFERENTIAL, B Routine 01/24 11:44 AM CDT Anemia C-REACTIVE PROTEIN (CRP), S/P Routine 11:44 AM CDT Anemia RETICULOCYTE PROFILE, B Routine 02/10/20 11:44 AM CDT Anemia IRON AND TOT IRON-BINDING CAPACITY, S/P Routine 02/09/2025 11:44 AM CDT Anemia FERRITIN, S Routine 02/09/2025 11:44 AM CDT Anemia HEMOGLOBIN A1C, B Routine 02/09/2025 11:44 AM CDT Preanesthetic Medical Exam Diabetes Mellitus Type 2 (HCC) from Last 3 Months Results * Teeth [employer] Image Exam (04/03/2025 12:00 AM CDT) Only the most recent of4 resultswithin the time period is included. Narrative IIMS - 04/03/2025 3:41 PM CDT This order has been created and auto-finalized to support the import of images acquired without order. The clinical documentation to support these images can be found on the encounter that produced images. us Provider Not In System IMG NON RAD IMAGING PROCE DURES Final Result IIMS NA * OMS Panorex (02/27/2025 9:26 AM CDT) us Sonya Elias APRN NAlla., D.N.P. PROCEDURE/MINOR SURGICAL ORDERABLES Final Result * Glucose, POCT (02/21/2025 11:44 AM CDT) Only the most recent of31 resultswithin the time period is included. Glucose, POCT, B 112 70 - 140 mg/dL 02/21/2025 12:01 PM CDT PCLX Site Capillary 02/21/2025 12:01 PM CDT PCLX Last Intake > 4 hours 02/21/2025 12:01 PM CDT PCLX Blood 02/21/2025 11:4 4 AM CDT 02/21/2025 12:02 PM CDT us Unknown Provider LAB POCT ORDERABLES-MANUAL Tessa l Result Performing Organization Address City/State/[facility] Co de Phone Number POC [facility] [address] [place] [address], [facility] PCLX [facility] POC [address] [place] [address] * DX Anatomic Modeling Consultation (02/20/2025 2:51 PM CDT) Anatomical Region Laterality Modality Body, Neuroradiology RST LOS , Abdominal RST LOS, Cardiovascular RST LOS, Musculoskeletal RST LOS, Abdominal FLA LOS, Cardiovascular FLA LOS, Thoracic FLA LOS, Neuroradiology FLA LOS, Muskuloskeletal FLA LOS N/A Digital Radiography Impressions 03/02/2025 9:49 AM CDT An anatomic guide was designed using the patient's own imaging data to fit the patient's unique anatomy and to contribute to individualized precision treatment. It was created using 3D-printing. The finished guide was reviewed, delivered and discussed with the ordering physician, Dr. Ramsey, from the department of board certified behavioral analyst. Delivery Date (MM/DD/YYYY): 02/10/2025 Requested Due Date (MM/DD/YYYY): 02/14/2025 Narrative 03/02/2025 9:49 AM CDT EXAM: DX ANATOMIC MODELING CONSULTATION INDICATION: Maxillary squamous cell carcinoma STUDY DESCRIPTION: 3D Anatomic Guide of the Head/Craniofacial. Laterality: Bilateral Mirror Image: No TECHNIQUE: After an initial consultation with the ordering physician, the imaging data was reviewed. The data was exported to dedicated segmentation software where the desired anatomic structure was segmented from the imaging data and converted into a digital representation for virtual surgical planning. The planned guide planes were digitally placed in the desired anatomic locations of the anatomic structure by the ordering physician. The guide planes and modeling files for the guides are exported to CAD software, where the surgical guides are designed to match the contour of the patient's segmented anatomy including openings to match the desired surgical guide planes created during the virtual surgical planning. A unique patient identifier is imprinted on the guide. Each anatomic guide requires similar but separate design and processing. The anatomic guides are 3D-printed in biocompatible and sterilizable material. After printing, they will be cleaned and processed according to guidelines for surgical material by the OR team. PROCEDURE: IMAGING ACQUISITION Primary Imaging Study: CT. Soft tissue neck CT 01/11/[address] angiogram with lower extremity runoff 01/12/2025, series 13. Segmented Images Co-Registered: No SEGMENTATION, PROCESSING AND GUIDE DESIGN Estimated Segmentation Time: Segmenter: 90 minutes Physician/QHCP: 15 minutes Estimated Virtual Planning and Templating Time: 60 minutes Estimated Guide Design CAD Processing Time: Budget Accountant: 180 minutes Physician/QHCP: 0 minutes ANATOMY Specific Anatomic Structures Within Model and/or Used for Guide Creation: Maxilla, fibula. Number of Guides: 7 Intended Use: Cutting/Drilling/Osteotomy Guide. 3D PRINTING DATA FOR GENERATION OF MODEL Segmentation Software File: needmade [employer] Suite. CAD Software: FastConnect. 3D Printer Technology: [employer] Multimedia Photopolymerization. 3D Printer Brand: [employer]. 3D Printer Model Name/Number: Form 3B Print Time: 52 Hrs/ Min Estimated Post Processing/Cleaning/Curing Time: 1 minutes MATERIAL 3D Printer Material: Biomed pilar resin Total Material Used (Guide and Support Material): 771.46 mm Procedure Note Orion Thomas M.D. - 03/02/2025 EXAM: DX ANATOMIC MODELING CONSULTATION INDICATION: Maxillary squamous cell carcinoma STUDY DESCRIPTION: 3D Anatomic Guide of the Head/Craniofacial. Laterality: Bilateral Mirror Image: No TECHNIQUE: After an initial consultation with the ordering physician, theimaging data was reviewed. The data was exported to dedicatedsegmentation software where the desired anatomic structure was segmentedfrom the imaging data and converted into a digital representation for virtual surgical planning. The planned guideplanes were digitally placed in the desired anatomic locations of theanatomic structure by the ordering physician. The guide planes andmodeling files for the guides are exported to CAD software, where the surgical guides are designed to match thecontour of the patient's segmented anatomy including openings to match thedesired surgical guide planes created during the virtual surgicalplanning. A unique patient identifier is imprinted on the guide. Each anatomic guide requires similar but separatedesign and processing. The anatomic guides are 3D-printed inbiocompatible and sterilizable material. After printing, they will becleaned and processed according to guidelines for surgical material by the OR team. PROCEDURE: IMAGING ACQUISITION Primary Imaging Study: CT. Soft tissue neck CT 01/11/2025 series 13. CTangiogram with lower extremity runoff 01/12/2025, series 13. Segmented Images Co-Registered: No SEGMENTATION, PROCESSING AND GUIDE DESIGN Estimated Segmentation Time: Segmenter: 90 minutes Physician/QHCP: 15 minutes Estimated Virtual Planning and Templating Time: 60 minutes Estimated Guide Design CAD Processing Time: Budget Accountant: 180 minutes Physician/QHCP: 0 minutes ANATOMY Specific Anatomic Structures Within Model and/or Used for Guide Creation:Maxilla, fibula. Number of Guides: 7 Intended Use: Cutting/Drilling/Osteotomy Guide. 3D PRINTING DATA FOR GENERATION OF MODEL Segmentation Software File: needmade [place] Suite. CAD Software: FastConnect. 3D Printer Technology: [employer] Photopolymerization. 3D Printer Brand: [employer]. 3D Printer Model Name/Number: Form 3B Print Time: 52 Hrs/ Min Estimated Post Processing/Cleaning/Curing Time: 1 minutes MATERIAL 3D Printer Material: Biomed pilar resin Total Material Used (Guide and Support Material): 771.46 mm IMPRESSION: An anatomic guide was designed using the patient's own imaging data to fitthe patient's unique anatomy and to contribute to individualized precisiontreatment. It was created using 3D-printing. The finished guide wasreviewed, delivered and discussed with the ordering physician, Dr. Ramsey, from [facility] of board certified behavioral analyst. Delivery Date (MM//): 02/10/2025 Requested Due Date (MM/DD/YYYY): 02/14/2025 us Baljit Ramsey M.D., NaviSJeramie IMG DIAGNOSTIC IMAG ING PROCEDURES Final Result * FL Swallow Function with Video and Speech or OT (02/20/2025 10:17 AM CDT) Anatomical Region Laterality Modality Gastro Intestinal, Abdominal RST LOS, Abdominal ARZ LOS, Abdominal FLA LOS N/A Digital Radiography Impressions 02/20/2025 10:36 AM CDT No laryngeal penetration or aspiration with thin liquid or puree solid consistencies. Please see dedicated speech pathology report for further details and recommendations. Narrative 02/20/2025 10:36 AM CDT EXAM: FL SWALLOW FUNCTION WITH VIDEO AND SPEECH OR OT FOR RST COMPARISON: None FINDINGS: A fluoroscopic video swallow study was performed in conjunction with speech pathology using thin liquid and puree solid barium consistencies. No laryngeal penetration or aspiration with any of the tested consistences. Small volume of residue within a presumed surgical defect within the right oral cavity, best seen on AP view. No significant vallecular or pyriform sinus residue with the tested consistences. Procedure Note Raul Marion M.D. - 02/20/2025 EXAM: FL SWALLOW FUNCTION WITH VIDEO AND SPEECH OR OT FOR RST COMPARISON: None FINDINGS: A fluoroscopic video swallow study was performed in conjunctionwith speech pathology using thin liquid and puree solid bariumconsistencies. No laryngeal penetration or aspiration with any of thetested consistences. Small volume of residue within a presumed surgical defect within the right oral cavity, best seenon AP view. No significant vallecular or pyriform sinus residue with thetested consistences. IMPRESSION: No laryngeal penetration or aspiration with thin liquid or puree solidconsistencies. Please see dedicated speech pathology report for furtherdetails and recommendations. Liat Mitchell APRN, C.N.P., M.S. IMG FLUOROSCO PY PROCEDURES Final Result * (ABNORMAL) CBC without Differential (02/19/2025 8:09 AM CDT) Only the most recent of5 resultswithin the time period is included. Hemoglobin 8.9(L) 13.2 - 16.6 g/dL 02/19/2025 8:17 AM CDT STMA Hematocrit 28.2(L) 38.3 - 48.6 % 02/19/2025 8:17 AM CDT STMA Erythrocytes 3.25(L) 4.35 - 5.65 x10(12)/L 02/19/2025 8:17 AM CDT STMA MCV 86.8 78.2 - 97.9 fL 02/19/2025 8:17 AM CDT STMA RBC Distrib Width 14.8(H) 11.8 - 14.5 % 02/19/2025 8:17 AM CDT STMA Platelet Count 295 135 - 317 x10(9)/L 02/19/2025 8:17 AM CDT STMA Leukocytes 7.6 3.4 - 9.6 x10(9)/L 02/19/2025 8:17 AM CDT STMA Blood (Blood, Venous) 02/19/2025 8:09 AM CDT 02/19/2025 8:14 AM CDT Katia Wilson M.D., FrancesD.S. LAB BLOOD ADD-ON F inal Result [facility] [address] [place] [address], [facility] [address] [place] [address] * Tracheostomy Replacement (02/17/2025 6:59 PM CDT) Narrative Katai Wilson M.D., Umberto.D.S. - 02/17/2025 6:59 PM CDT Katia Wilson M.D., Umberto.D.S. 02/17/2025 7:01 PM Tracheostomy Replacement Performed by: Katia Wilson M.D., D.D.S. Authorized by: Katia Wilson M.D., D.D.S. Care team members present 1. Diane Burns D.M.D., M.S. PROCEDURE DETAILS Tube type: double cannula Tube cuff: cuffless Tube size (mm): 4.0 CONSENT Consent obtained: verbal Consent given by: patient UNIVERSAL PROTOCOL All relevant documentation and testing were reviewed and available. All required blood products, implants, devices and or special equipment were made available as applicable. Pre-procedure verification was conducted and the correct site was marked if required. A fire risk and smoke assessment were done as applicable. The procedural time-out to verify correct patient, correct side/site, and procedure was conducted prior to performing the procedure and confirmed in a procedural pause. PRE-PROCEDURE DETAILS Tracheostomy replacement indications: Subcutaneous emphysema development, airway protection. Appropriate hand hygiene, gown, cap, mask, protective eyewear, sterile gloves, skin preparation, sterile drape, and strict aseptic technique were utilized as applicable for the procedure.: yes SEDATION / ANESTHESIA Anesthesia method: local infiltration Local infiltrate type: lidocaine POST-PROCEDURE DETAILS Tracheostomy secured with: sutures Procedure completed successfully: yes Complications: no immediate complications us Katia Wilson M.D., FrancesDJeramieS. PROCEDURE/MINOR VILLEGAS RGICAL ORDERABLES Final Result * Neck-Nursing Image Exam (02/17/2025 5:15 PM CDT) 02/17/2025 5:15 PM CDT Narrative IIMS - 02/17/2025 5:17 PM CDT This order has been created and auto-finalized to support the import of images acquired without order. The clinical documentation to support these images can be found on the encounter that produced images. us Provider Not In System IMG NON RAD IMAGING PROCE DURES Final Result II[facility] NA * (ABNORMAL) Basic Metabolic Panel (02/17/2025 3:29 AM CDT) Only the most recent of3 resultswithin the time period is included. Potassium, S 4.9 3.6 - 5.2 mmol/L 02/17/2025 4:44 AM CDT DTL Sodium, S 139 135 - 145 mmol/L 02/17/2025 4:44 AM CDT DTL Chloride, S 106 98 - 107 mmol/L 02/17/2025 4:44 AM CDT DTL Bicarbonate, S 24 22 - 29 mmol/L 02/17/2025 4:44 AM CDT DTL Anion Gap 9 7 - 15 02/17/2025 4:44 AM CDT DTL BUN (Blood Urea Nitrogen), S 25(H) 8 - 24 mg/dL 02/17/2025 4:44 AM CDT DTL Creatinine 1.82(H) 0.74 - 1.35 mg/dL 02/17/2025 4:44 AM CDT DTL Estimated GFR (eGFR) 38(L) >=60 mL/min/BSA 02/17/2025 4:44 AM CDT DTL Comment: Estimated GFR calculated using the 2020 CKD_EPI creatinine equation. Calcium, Total, S 8.7(L) 8.8 - 10.2 mg/dL 02/17/2025 4:44 AM CDT DTL Glucose, S 116 70 - 140 mg/dL 02/17/2025 4:44 AM CDT DTL Blood (Blood, Venous) 02/17/2025 3:29 AM CDT 02/17/2025 4:28 AM CDT Suellen Elias APRN.N.P., D.N.P. LAB BLO OD ADD-ON Final Result [facility] [address] [place] [address], [facility] [address] [place] [address] * Tracheostomy Replacement (02/16/2025 7:42 AM CDT) Narrative Katia Wilson M.D., D.D.S. - 02/16/2025 7:42 AM CDT Katia Wilson M.D., D.D.S. 02/16/2025 7:43 AM Tracheostomy Replacement Performed by: Katia Wilson M.D., D.D.S. Authorized by: Katia Wilson M.D., NaviS. Care team members present 1. Diane Burns D.M.D., M.S. 2. Katia Wilson M.D., NaviS. PROCEDURE DETAILS Tube type: double cannula Tube cuff: cuffless Tube size (mm): 6.0 CONSENT Consent obtained: verbal Consent given by: patient UNIVERSAL PROTOCOL All relevant documentation and testing were reviewed and available. All required blood products, implants, devices and or special equipment were made available as applicable. Pre-procedure verification was conducted and the correct site was marked if required. A fire risk and smoke assessment were done as applicable. The procedural time-out to verify correct patient, correct side/site, and procedure was conducted prior to performing the procedure and confirmed in a procedural pause. PRE-PROCEDURE DETAILS Indication: routine SEDATION / ANESTHESIA Anesthesia method: local infiltration Local infiltrate type: lidocaine POST-PROCEDURE DETAILS Tracheostomy secured with: sutures Procedure completed successfully: yes Complications: no immediate complications Katia Wilson M.D., NaviS. PROCEDURE/MINOR VILLEGAS RGICAL ORDERABLES Final Result * Phosphorus Inorganic (02/15/2025 3:44 AM CDT) Phosphorus (Inorganic), S 2.9 2.5 - 4.5 mg/dL 02/15/2025 5:27 AM CDT DTL Blood (Blood, Venous) 02/15/2025 3:44 AM CDT 02/15/2025 5:07 AM CDT Dallas Lubin APRN C.N.P., D.N.P. LAB BLO OD ADD-ON Final Result [facility] [address] [place] [address], [facility] [address] [place] [address] * Magnesium (02/15/2025 3:44 AM CDT) Magnesium, S 2.0 1.7 - 2.3 mg/dL 02/15/2025 5:27 AM CDT DTL Blood (Blood, Venous) 02/15/2025 3:44 AM CDT 02/15/2025 5:07 AM CDT Dallas Lubin APRN, C.N.P., D.N.P. LAB BLO OD ADD-ON Final Result [facility] [address] [place] [address], [facility] DTL [facility] [address] [place] [address] * DX Abdomen Portable Anterior Posterior 1 View (02/14/2025 4:16 PM CDT) Anatomical Region Laterality Modality Abdomen, Abdominal RST LOS, Abdominal ARZ LOS, Abdominal FLA LOS N/A Digital Radiography Impressions 02/14/2025 4:50 PM CDT NG tube with tip in the stomach. Electronic device projects over the stomach. Narrative 02/14/2025 4:50 PM CDT EXAM: DX ABDOMEN PORTABLE ANTERIOR POSTERIOR 1 VIEW Procedure Note Rom Pearson M.D., M.S. - 02/14/2025 EXAM: DX ABDOMEN PORTABLE ANTERIOR POSTERIOR 1 VIEW IMPRESSION: NG tube with tip in the stomach. Electronic device projects over thestomach. Dallas Lubin APRN, C. N.P., D.N.P. IMG DIAGNOSTIC IMAGING PROCEDURES Final Result * Patient Status (02/14/2025 12:11 PM CDT) Temperature 35.2 37.0 deg C 02/14/2025 12:12 PM CDT STMA FIO2 0.45 0.21=AIR 02/14/2025 12:12 PM CDT STMA Blood 02/14/2025 12:1 1 PM CDT 02/14/2025 12:11 PM CDT Sybil Oquendo APRN, CRNA, D.N.P. LAB BLOOD NON AD D-ON Final Result Performing Organization Address City/[facility]/ZIP Co de Phone Number [facility] [address] [place] [address] * Sodium, B (02/14/2025 12:11 PM CDT) Sodium, B 138 135 - 145 mmol/L 02/14/2025 12:14 PM CDT STMA Blood (Blood, Arterial Line) 02/14/2025 12:11 PM CDT 02/14/2025 12:[address] Saucedo M.D., M.P.H. LAB BLOOD NON ADD-ON Final Result Performing Organization Address [facility] Co de Phone Number [facility] [address] [place] [address] * (ABNORMAL) Blood Gas with Coox, Arterial (02/14/2025 12:11 PM CDT) pO2 129(H) 83 - 108 mm Hg 02/14/2025 12:14 PM CDT STMA pCO2 47 35 - 48 mm Hg 02/14/2025 12:14 PM CDT STMA pH 7.30(L) 7.35 - 7.45 pH 02/14/2025 12:14 PM CDT STMA Base Excess -4(L) -2 - 3 mmol/L 02/14/2025 12:14 PM CDT STMA HCO3 23 22 - 26 mmol/L 02/14/2025 12:14 PM CDT STMA Hemoglobin, B 11.7(L) 13.2 - 16.6 g/dL 02/14/2025 12:14 PM CDT STMA O2Hb 97.5 94.0 - 98.0 % 02/14/2025 12:14 PM CDT STMA COHb <1.0 <3.0 % 02/14/2025 12:14 PM CDT STMA MetHb <1.0 <1.5 % 02/14/2025 12:14 PM CDT STMA CtO2 16.3(L) 18.0 - 21.0 vol % 02/14/2025 12:14 PM CDT STMA Blood (Blood, Arterial Line) 02/14/2025 12:11 PM CDT 02/14/2025 12:[address] Saucedo M.D., M.P.H. LAB BLOOD NON ADD-ON Final Result Performing Organization Address City/[facility]/ZIP Co de Phone Number [facility] [address] [place] [address], [facility] [address] [place] [address] * Potassium, Blood (02/14/2025 12:11 PM CDT) Potassium, B 5.2 3.6 - 5.2 mmol/L 02/14/2025 12:15 PM CDT STMA Blood (Blood, Arterial Line) 02/14/2025 12:11 PM CDT 02/14/2025 12:[address] Saucedo M.D., M.P.H. LAB BLOOD NON ADD-ON Final Result Performing Organization Address City/[facility]/ZIP Co de Phone Number [facility] [address] [place] [address], [facility] [address] [place] [address] * (ABNORMAL) Glucose, Whole Blood (02/14/2025 12:11 PM CDT) Glucose 170(H) 70 - 140 mg/dL 02/14/2025 12:14 PM CDT [facility] Blood (Blood, Arterial Line) 02/14/2025 12:11 PM CDT 02/14/2025 12:[address] Saucedo M.D., M.P.H. LAB BLOOD ADD-ON Tessa l Result Performing Organization Address City/[facility]/ZIP Co de Phone Number [facility] [address] [place] [address] * Calcium, Ionized (02/14/2025 12:11 PM CDT) Pathologist [facility] Calcium, Ionized, B 4.74 4.65 - 5.30 mg/dL 02/14/2025 12:15 PM CDT [facility] Blood (Blood, Arterial Line) 02/14/2025 12:11 PM CDT 02/14/2025 12:[address] Saucedo M.D., M.P.H. LAB BLOOD NON ADD-ON Final Result Performing Organization Address [facility] Co de Phone Number [facility] [address] [place] [address] * Surgical Pathology, Frozen Lab (02/14/2025 10:30 AM CDT) [facility] 02/24/2025 5:11 PM CDT [facility] Participated in the Interpretation Dallas Streeter M.D. - Pathology Fellow 02/24/2025 5:11 PM CDT [facility] Report electronically signed by Mauricio Salmeron M.D. I verify that I have examined all relevant slides/materials for the specimen(s) and rendered or confirmed the diagnosis. 02/24/2025 5:11 PM CDT [facility] Fro[facility] Intraoperative Report A. 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 All margins are negative for tumor; nearest bone margin is anterior by 0.5 cm and nearest mucosal margin is anterior palatal by 0.7 cm. 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 B. Soft tissue, right upper lip, biopsy: Dysplastic squamous epithelium. Excision margins are negative for dysplasia. C. Lymph nodes, right level I-IV, select neck dissection: All negative. Multiple (26 neck lymph nodes are negative for metastatic carcinoma, including lymph nodes at the following levels: 3 level IB 3 level IIA 8 level IIB 6 level III 6 level IV The submandibular gland is unremarkable. Frozen section histologic interpretation performed by: Lazarus Tidwell M.D. Signed by DALLAS STREETER 02/14/2025 5:35 PM 02/24/2025 5:11 PM CDT [facility] Gross Description A. Received fresh labeled right composite maxillectomy is a 10.0 x 3.9 x 3.5 cm partial oriented maxillectomy, with 9 teeth. The mucosal margins are circumferentially shaved. There is a 2.5 x 1.7 x 0.6 cm selby-white papillary mass. The mass is located in the anterior palate mucosa and extends into the anterior alveolar mucosal aspect which does not extend to the underlying bone. The mass is 0.7 cm from the anterior palate mucosal margin and 0.5 cm from the anterior bone margin. The anterior and posterior bone margins are submitted shaved. Promotion Producer tissue submitted for frozen and permanent sections following decalcification. Grossed by David Youssef, DEYANIRA([facility]). B. Received fresh labeled right upper lip biopsy is a 1.1 x 1.0 x 0.5 cm oriented portion of red selby mucosa. There is a 0.5 x 0.4 cm selby-pink slightly raised nodule on the mucosal surface 0.2 cm from the anterior mucosal margin and 0.2 cm from the lateral margin. The left aspect is inked black and the right aspect is inked green. Margins are submitted shaved and perpendicularly. All submitted for frozen and permanent sections. Grossed by Dee Busby M.S., PA([facility]). C. Received fresh labeled right neck level 1-4 lymph nodes is a 16.5 x 8 x 2 cm select neck dissection including levels IA, IB, IIA, IIB, III, IV. A 5 x 3.2 x 2.4 cm selby lobulated submandibular gland is present. Multiple lymph nodes are identified with a grossly positive lymph node measuring 1.6 cm in level III. Lymph nodes are submitted for frozen and permanent sections. A sales representative adding machines section of the mandibular gland is submitted for frozen and permanent sections. Grossed by Monique Galeana M.S., PA([facility]). 02/24/2025 5:11 PM CDT [facility] Block Summary A Right composite maxillectomy A1 Anterior palate mucosal margin 1 shave -frozen A2 Anterior palate mucosal margin 2 shave -frozen A3 Posterior palate mucosal margin shave -frozen A4 Anterior alveolar ridge mucosal margin 1 shave -frozen A5 Anterior alveolar ridge mucosal margin 2 shave -frozen A6 Posterior alveolar ridge mucosal margin 1 shave -frozen A7 Posterior alveolar ridge mucosal margin 2 shave -frozen A8 Posterior alveolar ridge mucosal margin 3 shave -frozen A9 Mass 1 -frozen A10 Mass 2 -frozen A11 Mass 3 A12 Anterior bone margin - shave A13 Bone underlying mass 1 A14 Bone underlying mass 2 A15 Bone underlying mass 3 A16 Posterior bone margin - shave B Right upper lip biopsy B1 Posterior tip shave - frozen B2 Anterior tip shave - frozen B3 Right upper lip biopsy 1 perp - frozen B4 Right upper lip biopsy 2 perp - frozen C Right neck level 1-4 lymph nodes C1 Right submandibular gland -frozen C2 Level 1A lymph nodes 1(C1) - frozen C3 Level 1B lymph nodes 1(C2) - frozen C4 Level 1B lymph nodes 2(C3) - frozen C5 Level 2A lymph nodes 1(C4) - frozen C6 Level 2A lymph nodes 1(C5) - frozen C7 Level 2A lymph nodes 1of2(C6)-frozen C8 Level 2A lymph nodes 2of2(C6)-frozen C9 Level 2B lymph nodes 4(C7)-frozen C10 Level 2B lymph nodes 2(C8)-frozen C11 Level 2B lymph nodes 2(C9)-frozen C12 Level 3 lymph nodes 1(C10)-frozen C13 Level 3 lymph nodes 1(C11) - frozen C14 Level 3 lymph nodes 2(C12) - frozen C15 Level 3 lymph nodes 2(C13) - frozen C16 Level 4 lymph nodes 2(C14) - frozen C17 Level 4 lymph nodes 3(C15) - frozen C18 Level 4 lymph nodes 2(C16) - frozen 02/24/2025 5:11 PM CDT [facility] Interpretation FINAL DIAGNOSIS A. Maxilla, right composite, maxillectomy: Invasive keratinizing squamous cell carcinoma, well differentiated, forming a 2.5 x 1.7 x 0.5 cm exophytic mass situated at the anterior palatal mucosa and extending to the anterior alveolar mucosa. Carcinoma extends to submucosal tissue (depth: 0.4 cm) and does not invade bone. Surgical margins negative for tumor. The nearest margins are anterior bone (by 0.5 cm) and anterior palatal mucosa (by 0.7 cm). B. Soft tissue, right upper lip, biopsy: Moderate keratinizing dysplasia. Surgical margins negative for tumor. Histochemical staining of block B4 for GMS is negative for fungal elements. C. Lymph nodes, right level I-IV, select neck dissection: All lymph nodes are negative. Multiple (26) neck lymph nodes are negative for metastatic carcinoma, including lymph nodes at the following levels: 3 level IB 3 level IIA 8 level IIB 6 level III 6 level IV The submandibular gland is unremarkable. SYNOPTIC REPORT: Oral Cavity Procedure: Maxillectomy, right composite Tumor Focality: Unifocal Multiple Primary Sites: Not applicable (no additional primary site(s) present) Tumor Site: Oral Cavity Tumor Subsite: Upper gingiva, hard palate, and alveolar process, maxillary Tumor Laterality: Right and midline Tumor Size: Greatest dimension (centimeters): 2.5 cm Additional dimensions (centimeters): 1.7 x 0.5 cm Histologic Type: Squamous cell carcinoma, conventional (keratinizing) Histologic Grade: G1, Well differentiated Grade / Intrinsic Biologic Potential: Not applicable Tumor Depth of Invasion (DOI): Specify depth (mm): 4 mm Tumor Extent: Specify: Submucosal tissue Lymphatic and / or Vascular Invasion: Not identified Perineural Invasion: Not identified Specimen Margin Status for Invasive Tumor All Specimen Margins Negative for Invasive Tumor Distance from Invasive Tumor to Closest Margin: 5 mm Closest Specimen Margin(s) to Invasive Tumor: Anterior bone Specimen Margin Status for Noninvasive Tumor (High-Grade Dysplasia) All Specimen Margins Negative High-Grade Dysplasia / In Situ Disease Specimen Margin(s) Involved by Noninvasive Tumor: Palatal mucosa and Alveolar mucosa Tumor Bed Margin Status Not applicable Tumor Bed Margin Status for Noninvasive Tumor Not Applicable Regional Lymph Node Status All Regional Lymph Nodes Negative for Tumor Digital imaging was used in the diagnostic assessment of this case. Number of Lymph Nodes Examined: 26 Distant Metastasis: Distant Site(s) Involved: Not applicable pTNM Classification (AJCC, 8th edition): Modified Classification: Not applicable pT Category: pT2 T Suffix: Not applicable pN Category: pN0 pM Category: Not applicable - pM cannot be determined from the submitted specimen(s) Additional Pathologic Findings: Nonkeratinizing dysplasia, moderate and severe (carcinoma in situ) The synoptic report incorporates information from all relevant surgical material and includes all required data elements of the current CAP Cancer Protocol. 02/24/2025 5:11 PM CDT [facility] Tissue (Maxilla) 02/14/2025 10:30 AM CDT Tissue (Lip) 02/14/2025 10:3 9 AM CDT Tissue (Neck, Right) 02/14/2025 12:21 PM CDT us Baljit Ramsey M.D., [employer] LAB SURG PATH ORDER LEONIDAS Final Result Performing Organization Address [facility] Co de Phone Number [facility] [address] [facility] [address] [place] [address] * Type and Screen (with Reflex Antibody ID) (02/14/2025 8:35 AM CDT) ABORh O Pos Not applicable 02/14/2025 9:15 AM CDT [facility] Antibody Screen Negative Negative 02/14/2025 9:27 AM CDT STRM Type & Screen Expiration 02/17/2025 23:59 02/14/2025 9:15 AM CDT [facility] Testing Location Daily DEFAULT 02/14/2025 8:44 AM CDT [facility] Blood (Blood, Venous) 02/14/2025 8:35 AM CDT 02/14/2025 8:[address] Saucedo M.D., M.P.H. LAB BLOOD BANK TEST O RDERABLES Final Result Performing Organization Address [facility] Co de Phone Number [facility] [address] [place] [address], [facility] [place] [address] * SD ARTL CATH/CNULA MONITOR PERC, LDA ANE ARTERIAL LINE INSERTION (02/14/2025 8:22 AM CDT) Narrative Loreta Manley APRN, CRNA, D.N.P. - 02/14/2025 8:22 AM CDT Loreta Manley APRN, CRNA, D.N.P. 02/14/2025 8:22 AM Invasive Catheter Date/Time: 02/14/2025 8:22 AM Performed by: Loreta Manley APRN, CRNA, D.N.P. Authorized by: Lane Saucedo M.D., M.P.H. Location: OR PROCEDURE DETAILS: Line type: arterial Laterality: left Location: radial Location details: new site Age group: adult Catheter diameter: 20 Ga Technique: palpation Monitored: yes Number of attempts: 2 UNIVERSAL PROTOCOL All relevant documentation and testing were reviewed and available. All required blood products, implants, devices and or special equipment were made available as applicable. Pre-procedure verification was conducted and the correct site was marked if required. A fire risk and smoke assessment were done as applicable. The procedural time-out to verify correct patient, correct side/site, and procedure was conducted prior to performing the procedure and confirmed in a procedural pause. PRE-PROCEDURE DETAILS: Appropriate hand hygiene, gown, cap, mask, protective eyewear, sterile gloves, skin preparation, sterile drape, and strict aseptic technique were utilized as applicable for the procedure.: yes Skin preparation: chlorhexidine SEDATION / ANESTHESIA Anesthesia method: anesthesia POST-PROCEDURE DETAILS: Procedure completed successfully: yes Line secured: secured with sutureless device Chlorhexidine disc around insertion site and under catheter with slight turn: yes Notable Events - arterial: none Lane Saucedo M.D., M.P.H. PROCEDURE/MINOR SURGI MARCUS ORDERABLES Final Result * LDA ANE ENDOTRACHEAL AIRWAY (02/14/2025 7:46 AM CDT) Narrative Loreta Manley APRN, CRNA, Umberto.N.P. - 02/14/2025 7:46 AM CDT Loreta Manley APRN, CRNA, D.N.P. 02/14/2025 8:23 AM Airway Date/Time: 02/14/2025 7:46 AM Performed by: Loreta Manley APRN, CRNA, D.N.P. Authorized by: Lane Saucedo M.D., M.P.H. Patient location during procedure: OR / Procedure Area PROCEDURE DETAILS: Mask difficulty assessment: difficult mask (two-handed) with oral airway Final airway type: video laryngoscope Laryngeal Manipulation: no Final best view of glottic structures - Cormack/Lehane Score: grade 1 ETT location: oral VL device: glide scope [place] scope blade size: 4 Tube size: 7.5 ETT distance at teeth/gum: 23 Oral tube type: standard ETT Cuffed: yes Leak Test Performed: no Number of attempt to successful placement: 1 Airway confirmation: bilateral breath sounds, positive ETCO2 and bilateral chest rise Other previous techniques attempted: none PRE PROCEDURE DETAILS: Pre evaluation for airway management: procedure Urgency: elective Preop assessment of probable difficulty: questionable / suspicious difficult airway Preoxygenation: bag valve mask SEDATION / ANESTHESIA Anesthesia method: anesthesia POST PROCEDURE DETAILS: Procedure outcome: successful us Lane Saucedo M.D., M.P.H. ANESTHESIA ORDERABLES Final Result * Skull-Radiology 3D Image Exam (02/10/2025 12:05 AM CDT) Only the most recent of2 resultswithin the time period is included. Narrative 02/10/2025 7:36 AM CDT This order has been created and auto-finalized to support the import of images acquired without order. The clinical documentation to support these images can be found on the encounter that produced images. us Provider Not In System IMG NON RAD IMAGING PROCE DURES Final Result * ECG 12 Lead (02/09/2025 12:54 PM CDT) Ventricular Rate ECG/Min 64 BPM MUSE SD Interval 190 ms MUSE QRSD Interval 132 ms MUSE QT Interval 382 ms MUSE QTC Interval 394 ms MUSE P [place] 41 degrees MUSE R [place] -28 degrees MUSE T Wave [place] 7 degrees MUSE 02/09/2025 12:5 4 PM CDT 02/09/2025 1:28 PM CDT Impressions MUSE - 02/09/2025 1:28 PM CDT Sinus rhythm Minimal voltage criteria for LVH, may be normal variant Right bundle branch block with secondary ST-T abnormalities No previous ECGs available Reviewed by GEORGIANA Hooks Narrative Procedure Note Eddy Reynoso M.D., Ph.D. - 02/09/2025 IMPRESSION: Sinus rhythm Minimal voltage criteria for LVH, may be normal variant Right bundle branch block with secondary ST-T abnormalities No previous ECGs available Reviewed by GEORGIANA Hooks us Christy Lim APRN, C.N.P., M.S.N. ECG ORDERA BLES Final Result MUSE NA * Reticulocyte Profile (02/09/2025 11:44 AM CDT) Reticulocytes, B 1.34 0.60 - 2.71 % 02/09/2025 12:19 PM CDT DTL Absolute Reticulocyte 64.3 30.4 - 110.9 x10(9)/L 02/09/2025 12:19 PM CDT DTL Immature Reticulocyte Fraction 11.5 2.3 - 13.4 % 02/09/2025 12:19 PM CDT DTL Reticulocyte Hemoglobin 30.7 30.0 - 37.6 pg 02/09/2025 12:19 PM CDT DTL Erythrocytes 4.80 4.35 - 5.65 x10(12)/L 02/09/2025 12:19 PM CDT DTL Blood (Blood, Venous) 02/09/2025 11:44 AM CDT 02/09/2025 12:06 PM CDT us Ashlie Fisher APRN, C.N.P., D.N.P. LAB BLOO D ADD-ON Final Result [facility] [address] [place] [address], [place] DTL [facility] [address] [place] [address] * Iron and Total Iron-Binding Capacity (02/09/2025 11:44 AM CDT) [facility] Iron 77 50 - 150 mcg/dL 02/09/2025 12:59 PM CDT DTL Total Iron Binding Capacity 353 250 - 400 mcg/dL 02/09/2025 12:59 PM CDT DTL Percent Saturation 22 14 - 50 % 02/09/2025 12:59 PM CDT DTL Blood (Blood, Venous) 02/09/2025 11:44 AM CDT 02/09/2025 12:20 PM CDT Ashlie Fisher APRN, C.N.P., D.N.P. LAB BLOO D ADD-ON Final Result [facility] [address] [place] [address] * CRP (C-Reactive Protein) (02/09/2025 11:44 AM CDT) [facility] C-Reactive Protein (CRP), S <3.0 <5.0 mg/L 02/09/2025 12:59 PM CDT DTL Blood (Blood, Venous) 02/09/2025 11:44 AM CDT 02/09/2025 12:20 PM CDT Ashlie Fisher APRN, C.N.P., D.N.P. LAB BLOO D ADD-ON Final Result [facility] [address] [place] [address] * (ABNORMAL) Hemoglobin A1c (02/09/2025 11:44 AM CDT) [facility] Hemoglobin A1c, B 6.3(H) 4.0 - 5.6 % 02/09/2025 12:34 PM CDT DTL Comment: Hemoglobin A1c values of 5.7-6.4 percent indicate an increased risk for developing diabetes mellitus. In diabetic patients, HbA1c goals should be discussed with healthcare provider. Blood (Blood, Venous) 02/09/2025 11:44 AM CDT 02/09/2025 12:06 PM CDT us Christy Lim APRN, C.N.P., M.S.N. LAB BLOOD ADD-ON Final Result Performing Organization Address [facility] Co de Phone Number [facility] [address] [facility] [address] [place] [address] * (ABNORMAL) Ferritin (02/09/2025 11:44 AM CDT) Ferritin, S 21(L) 31 - 409 mcg/L 02/09/2025 12:59 PM CDT DTL Blood (Blood, Venous) 02/09/2025 11:44 AM CDT 02/09/2025 12:20 PM CDT us Ashlie Fisher APRN, C.N.P., D.N.P. LAB BLOO D ADD-ON Final Result Performing Organization Address [facility] Co de Phone Number [facility] [address] [place] [address], [facility] [address] [place] [address] from Last 3 Months Insurance [facility] Advance Directives For more information, please contact: [phone] * Full Code (Latest Code Status on File) Date Activated Date Inactivated Comments 02/14/2025 5:28 PM 02/21/2025 5:22 PM Question Answer Comments Full Code: Discussed Care Teams Machine Greaser Relationship Specialty Start Date End Date Elsewhere, Pcp PCP - General Internal Medicine 02/08/25
--- OUTSIDE RECORDS SUMMARY | 2025-04-22 10:09 | XMS_ITS | Encounter Summary ---
Author Organization [facility] Address [address] [place] [address] Care Team Providers Care Cattle Alley Worker Name Role Phone Antonio Celeste MD Primary Care Provider U nealsharon Bill Bowens PA-C Primary Care Provider + Bill Bowens PA-C Unavailable [phone] Bill Bowens PA-C Unavailable [phone] Alex Rao MD Primary Care Provider [phone] Alex Rao MD Unavailable [phone] Beni Puga MD PhD Unavailable Alex aRo MD Unavailable [phone] Nate Leong MD Unavailable [phone] Sharri Hdez MD Unavailable [phone] Alex Rao MD Unavailable [phone] Alex Rao MD Unavailable [phone] Russell Agosto MD Unavailable [phone] Magdalena Fry MD Unavailable Doris Chaney [facility] Unavailable [phone] Doris Chaney [facility] Unavailable [phone] Canelo Kelley MD Unavailable Encounter Details Date Type Department Care Team (Late st Contact Info) Description 02/18/2012 MyC Medical Advice Initial Department Taiwo Yañez Social History Tobacco Use Types [...] AM CDT Legal Sex Male 4:10 AM USABILITY STRATEGIST Gender Identity Male 11/22/2018 10:40 AM USABILITY STRATEGIST Sexual Orientation Straight 11/22/2018 10 :40 AM USABILITY STRATEGIST Occupation Industry Job Start Date Job 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- [employer] Not on file Not on file Not on file documented as of this encounter Plan of Treatment Upcoming Encounters Date Type Department Care Team (Late st Contact Info) Description 06/30/2025 Ancillary Procedure [address] [address] Magdalena Fry MD [address] [place] [id number] 10/02/2025 Ancillary Procedure [address] [phone] Magdalena Fry MD [address] [place] [address] [phone] documented as of this encounter Visit Diagnoses Not on filedocumented in this encounter Care Teams Cattle Alley Worker Relationship Specialty Start Date End Date Antonio Celeste MD NO INFO AVAILABLE 08/25/2022 PCP - General 03/24/03 02/19/15 Bill Bowens PA-C NO INFO AVAILABLE 08/25/2022 PCP - General Physician Automation And Controls Instructor 02/20/15 09/18/19 Bill Bowens PA-C [address] [place] [address] PCP - Assigned PCP 01/14/15 12/28/18 Alex Rao MD [address] [place] [address] PCP - General Internal Medicine 09/19/19 Bill Bowens PA-C [address] [place] [address] Assigned PCP 01/14/15 12/03/19 Alex Rao MD [address] [facility] [place] [address] Assigned PCP 12/04/19 02/18/20 Beni Puga MD PhD [address] [facility] [place] [address] Assigned PCP 02/19/20 02/25/20 Alex Rao MD [address] [facility] [place] [address] Assigned PCP 02/26/20 03/20/21 Nate Leong MD [address] [facility] [place] [address] Assigned Surgical Provider 08/17/20 11/07/22 Sharri Hdez MD [address] [place] [address] [id number] Assigned Endocrinology Provider 12/16/20 03/16/24 Alex Rao MD [address] [facility] [place] [address] Assigned PCP 03/21/21 Alex Rao MD [address] [address] Referring Physician Internal Medicine 04/02/22 Russell Agosto MD [address] [id number] Neurology 04/02/22 Magdalena Fry MD [address] [id number] Assigned Heart and Vascular Provider 04/26/22 02/15/24 Doris Chaney [facility] [address] [address] Pharmacist Pharmacist 07/21/22 [facility] [address] [phone] Assigned MTM Pharmacist 07/26/2202/14 [place] [address] [phone] Nephrology 05/14/23 documented as of this encounter
--- OUTSIDE RECORDS SUMMARY | 2025-04-22 10:09 | XMS_ITS | Encounter Summary ---
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 [address] [place] [phone] Phone: tel: fax: [facility] Referral ID Status Reason Start Date Expiration Date Visits Re quested Visits Authorized [id number] Closed 02/24/2025 08/26/2026 1 1 Encounter Details Date Type Department Care Team (Latest Contact Info) Description 02/24/2025 Clinical Communication Division of social worker palliative care in [place], [place] [address] [place] [address] Baljit Ramsey M.D., D.D.S. [address] [place] [phone] Social History Tobacco Use Types Packs/Day Years Used Date Smoking Tobacco: Former Cigarettes 0.3 4 0 1970 - 1974 Smokeless Tobacco: Never Alcohol Use Standard Drinks/Week Comments Not Currently 0 (1 standard drink = 0.6 oz pur e alcohol) [facility] Utilities Answer Date Recorded In the past 12 months has th e electric, gas, oil, or water company [...] your living situation today? 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 [address] [place] [phone] 05/24/2025 9:00 AM CDT Clinical Support Department of Nutrition and Diabetes Education in [place], [place] [address] [place] [address] Lexus Olson APRN, C.N.P. [address] [place] [phone] Elizabeth Arias, M.S.N., R.N. [address] [place] [phone] 05/24/2025 10:15 AM CDT Appointment Department of Radiology, [facility], in [place], [place] [address] [place] [address] Dallas Lubin APRN, C.N.P., D.N.P. [address] [place] [phone] 05/24/2025 11:00 AM CDT Appointment Division of social worker palliative care in [place], [place] [address] [place] [phone] Dallas Lubin APRN, C.N.P., D.N.P. [address] [place] [phone] 05/24/2025 1:30 PM CDT Comprehensive Visit Division of Endocrinology in [place], [place] [address] [place] [address] Monik Moreland APRN, C.N.P., M.S. [address] [place] [phone] 06/20/2025 9:30 AM CDT Office Visit Department of Dental Specialties in [place], [place] [address] [place] [address] Marisol Sandra D.D.S. 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
--- OUTSIDE RECORDS SUMMARY | 2025-04-22 10:09 | XMS_ITS | Encounter Summary ---
Author Organization [facility] Address [address] [place] [address] Care Team Providers Care Technical Services Assistant Name Role Phone Alex Rao MD Primary Care Provider [phone] Sharri Hdez MD Unavailable [phone] Alex Rao MD Unavailable [phone] Alex Rao MD Unavailable [phone] Russell Agosto MD Unavailable [phone] Magdalena Fry MD Unavailable Doris Chaney [facility] Unavailable [phone] Doris Chaney [facility] Unavailable Canelo Kelley MD Unavailable Encounter Details Date Type Department Care Team (Late st Contact Info) Description 04/09/2023 [facility] [address] [place] [address] Taiwo Yañez Social History Tobacco [...] AM CDT Legal Sex Male 4:10 AM CHEF DE CUISINE Gender Identity Male 11/22/2018 10:40 AM CHEF DE CUISINE Sexual Orientation Straight 11/22/2018 10 :40 AM CHEF DE CUISINE Occupation Industry Job Start Date Job End [...] st Contact Info) Description 06/30/2025 Ancillary Procedure [address] [address] Magdalena Fry MD [address] [place] [phone] 10/02/2025 Ancillary Procedure [address] [address] Magdalena Fry MD [address] [place] [address] [phone] documented as of this encounter Visit Diagnoses Not on filedocumented in this encounter Additional Health Concerns Assessment Noted Time PHQ-9 Depression Total Score: 9 06/10/20 22 11:44 AM CDT documented as of this encounter Care Teams Technical Services Assistant Relationship Specialty Start Date End Date Alex Rao MD PCP - General Internal Medicine 09/19/19 Sharri Hdez MD [address] [place] [address] Assigned Endocrinology Provider 12/16/20 03/16/24 Alex Rao MD [address] [place] [address] Assigned PCP 03/21/21 Alex Rao MD [address] [place] [address] Referring Physician Internal Medicine 04/02/22 Russell Agosto MD [address] [address] Neurology 04/02/22 Magdalena Fry MD [address] [address] Assigned Heart and Vascular Provider 04/26/22 02/15/24 Doris Chaney [facility] [address] [place] [phone] Pharmacist Pharmacist 07/21/22 Doris Chaney [facility] [address] [place] [phone] Assigned MTM Pharmacist 07/26/2202/14 [place] [address] [place] [phone] Nephrology 05/14/23 documented as of this encounter
--- OUTSIDE RECORDS SUMMARY | 2025-04-22 10:09 | XMS_ITS | Encounter Summary ---
Author Organization [facility] Address [address] [place] [address] Care Team Providers Care Finance Business Partner Name Role Phone Alex Rao MD Primary Care Provider [phone] Sharri Hdez MD Unavailable [phone] Alex Rao MD Unavailable [phone] Alex Rao MD Unavailable [phone] Russell Agosto MD Unavailable [phone] Magdalena Fry MD Unavailable Doris Chaney [facility] Unavailable [phone] Drois Chaney [facility] Unavailable [phone] Canelo Kelley MD Unavailable Encounter Details Date Type Department Care Team (Late st Contact Info) Description 01/28/2023 [facility] [address] [place] [address] Taiwo Yañez Social History Tobacco [...] AM CDT Legal Sex Male 4:10 AM POWER PROJECT MANAGER Gender Identity Male 11/22/2018 10:40 AM POWER PROJECT MANAGER Sexual Orientation Straight 11/22/2018 10 :40 AM POWER PROJECT MANAGER Occupation Industry Job Start Date Job 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- [employer] Not on file Not on file Not on file documented as of this encounter Plan of Treatment Upcoming Encounters Date Type Department Care Team (Late st Contact Info) Description 06/30/2025 Ancillary Procedure [address] [phone] Magdalena Fry MD [address] [place] [address] [phone] 10/02/2025 Ancillary Procedure [address] [phone] Magdalena rFy MD [address] [place] [address] [phone] documented as of this encounter Visit Diagnoses Not on filedocumented in this encounter Additional Health Concerns Assessment Noted Time PHQ-9 Depression Total Score: 9 06/10/20 22 11:44 AM CDT documented as of this encounter Care Teams Finance Business Partner Relationship Specialty Start Date End Date Alex Rao MD PCP - General Internal Medicine 09/19/19 Sharri Hdez MD [address] [place] [address] [address] [place] [address] Assigned Endocrinology Provider 12/16/20 03/16/24 Alex Rao MD [address] [place] [address] Assigned PCP 03/21/21 Alex Rao MD [address] [facility] [address] [place] [address] Referring Physician Internal Medicine 04/02/22 Russell Agosto MD [address] [address] Neurology 04/02/22 Magdalena Fry MD [address] [address] Assigned Heart and Vascular Provider 04/26/22 02/15/24 Doris Chaney [facility] [address] [place] [phone] Pharmacist Pharmacist 07/21/22 Doris Chaney [facility] [address] [place] [phone] Assigned MTM Pharmacist 07/26/2202/14 [place] [address] [place] [phone] Nephrology 05/14/23 documented as of this encounter
--- OUTSIDE RECORDS SUMMARY | 2025-04-22 10:09 | XMS_ITS | Encounter Summary ---
Author Organization [facility] Address [address] [place] [address] Care Team Providers Care Final Armature Tester Name Role Phone Elsewhere, Pcp Primary Care Provider Unavailabl e Reason for Visit * Reason Onset Date Comments Reschedule 02/24/2025 Encounter Details Date Type Department Care Team (Late st Contact Info) Description 02/24/2025 Clinical Communication Department of Dental Specialties in [place], [place] [address] [place] [address] Yuliya Almeida D.D.S., M.S. [address] [place] [address] Reschedule Social History Tobacco Use Types Packs/Day Years Used Date Smoking Tobacco: Former Cigarettes 0.3 4 0 1970 - 1974 Smokeless Tobacco: Never Alcohol Use Standard Drinks/Week Comments Not Currently 0 (1 standard drink = 0.6 oz pur e alcohol) [facility] Utilities Answer Date Recorded In the past 12 months has [facility] [employer], gas, oil, or water [employer] threatened to shut off services in your [...] your living situation today? 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 [address] [place] [phone] 05/24/2025 9:00 AM CDT Clinical Support Department of Nutrition and Diabetes Education in [place], [place] [address] [place] [phone] Lexus Olson APRN, C.N.P. [address] [place] [phone] Hougen, Elizabeth K, M.S.N., R.N. [address] [place] [phone] 05/24/2025 10:15 AM CDT Appointment Department of Radiology, [facility], in [place], [place] [address] [place] [address] Dallas Lubin APRN, C.N.P., D.N.P. [address] [place] [phone] 05/24/2025 11:00 AM CDT Appointment Division of disease control inspector in [place], [place] [address] [place] [phone] Dallas Lubin APRN, C.N.P., D.N.P. [address] [place] [phone] 05/24/2025 1:30 PM CDT Comprehensive Visit Division of Endocrinology in [place], [place] [address] [place] [phone] Monik Moreland, LARISA, C.N.P., M.S. [address] [place] [phone] 06/20/2025 9:30 AM CDT Office Visit Department of Dental Specialties in [place], [place] [address] [place] [phone] Marisol Sandra D.D.S. [address] [place] [phone] documented as of this encounter Visit Diagnoses Not on filedocumented in this encounter Care Teams Final Armature Tester Relationship Specialty Start Date End Date Elsewhere, Pcp PCP - General Internal Medicine 02/08/25 documented as of this encounter
--- OUTSIDE RECORDS SUMMARY | 2025-04-22 10:09 | XMS_ITS | Encounter Summary ---
Author Organization [facility] Address [address] [place] [address] Care Team Providers Care Product Controller Name Role Phone Antonio Celeste MD Primary Care Provider U nealsharon Bill Bowens PA-C Primary Care Provider + Bill Bowens PA-C Unavailable [phone] Bill Bowens PA-C Unavailable [phone] Alex Rao MD Primary Care Provider [phone] Alex Rao MD Unavailable [phone] Beni Puga MD PhD Unavailable Alex Rao MD Unavailable [phone] Nate Leong MD Unavailable [phone] Sharri Hdez MD Unavailable [phone] Alex Rao MD Unavailable [phone] Alex Rao MD Unavailable [phone] Russell Agosto MD Unavailable [phone] Magdalena Fry MD Unavailable Doris Chaeny [facility] Unavailable [phone] Doris Chaney [facility] Unavailable [phone] Canelo Kelley MD Unavailable Encounter Details Date Type Department Care Team (Late st Contact Info) Description 09/15/2012 [facility]ice [address] [phone] Taiwo Yañez Social History Tobacco Use Types [...] Legal Sex Male 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 Gender Identity Male 11/22/2018 10:40 AM PROFESSOR OF CHEMICAL ENGINEERING Sexual Orientation Straight 11/22/2018 10 :40 AM PROFESSOR OF CHEMICAL ENGINEERING Occupation Industry Job Start Date Job 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- [employer] Not on file Not on file Not on file documented as of this encounter Plan of Treatment Upcoming Encounters Date Type Department Care Team (Late st Contact Info) Description 06/30/2025 Ancillary Procedure [address] [address] Magdalena Fry MD [address] [place] [address] 10/02/2025 Ancillary Procedure [address] [phone] Magdalena Fry MD [address] [place] [address] [phone] documented as of this encounter Visit Diagnoses Not on filedocumented in this encounter Care Teams Product Controller Relationship Specialty Start Date End Date Antonio Celeste MD NO INFO AVAILABLE 08/25/2022 PCP - General 03/24/03 02/19/15 Bill Bowens PA-C NO INFO AVAILABLE 08/25/2022 PCP - General Physician Burring Wheel Operator 02/20/15 09/18/19 Bill Bowens PA-C [address] [place] [address] PCP - Assigned PCP 01/14/15 12/28/18 Alex Rao MD [address] [address] PCP - General Internal Medicine 09/19/19 Bill Bowens PA-C [address] [place] [address] Assigned PCP 01/14/15 12/03/19 Alex Rao MD [address] [place] [address] Assigned PCP 12/04/19 02/18/20 Beni Puga MD PhD [address] [place] [address] Assigned PCP 02/19/20 02/25/20 Alex Rao MD [address] [place] [address] Assigned PCP 02/26/20 03/20/21 Nate Leong MD [address] [place] [address] Assigned Surgical Provider 08/17/20 11/07/22 Sharri Hdez MD [address] [facility] 101 [place] [address] Assigned Endocrinology Provider 12/16/20 03/16/24 Alex Rao MD [address] [facility] [address] Assigned PCP 03/21/21 Alex Rao MD [address] [facility] [address] Referring Physician Internal Medicine 04/02/22 Russell Agosto MD [address] [facility] [address] [place] [address] Neurology 04/02/22 Magdalena Fry MD [address] [place] [address] Assigned Heart and Vascular Provider 04/26/22 02/15/24 Doris Chaney [facility] [address] [place] [phone] Pharmacist Pharmacist 07/21/22 Doris Chaney [facility] [address] [place] [phone] Assigned MTM Pharmacist 07/26/2202/14 [place] [address] [place] [phone] Nephrology 05/14/23 documented as of this encounter
--- OUTSIDE RECORDS SUMMARY | 2025-04-22 10:09 | XMS_ITS | Encounter Summary ---
Author Organization [facility] Address [address] [place] [address] Care Team Providers Care Abrasive Water Jet Cutter Operator Name Role Phone Bill Bowens PA-C Unavailable Alex Rao MD Primary Care Provider [phone] Alex Rao MD Unavailable [phone] Beni Puga MD PhD Unavailable Alex Rao MD Unavailable [phone] Nate Leong MD Unavailable [phone] Sharri Hdez MD Unavailable Alex Rao MD Unavailable [phone] Alex Rao MD Unavailable [phone] Russell Agosto MD Unavailable [phone] Magdalena Fry MD Unavailable Doris Chaney [facility] Unavailable Doris Chaney [facility] Unavailable [phone] Canelo Kelley MD Unavailable Encounter Details Date Type Department Care Team (Late st Contact Info) Description 10/11/[address] [address] Alex Rao MD [address] [facility] [place] [address] Social History Tobacco Use Types Packs/Day Years [...] AM CDT Legal Sex Male 4:10 AM WAFER FABRICATION OPERATOR Gender Identity Male 11/22/2018 10:40 AM WAFER FABRICATION OPERATOR Sexual Orientation Straight 11/22/2018 10 :40 AM WAFER FABRICATION OPERATOR Occupation Industry Job Start Date Job 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- [employer] Not on file Not on file Not on file documented as of this encounter Plan of Treatment Upcoming Encounters Date Type Department Care Team (Late st Contact Info) Description 06/30/2025 Ancillary Procedure [address] [phone] Magdalena Fry MD [address] [place] [address] [phone] 10/02/2025 Ancillary Procedure [address] [address] Magdalena Fry MD [address] [place] [address] [phone] documented as of this encounter Visit Diagnoses Not on filedocumented in this encounter Care Teams Abrasive Water Jet Cutter Operator Relationship Specialty Start Date End Date Alex Rao MD [address] [place] [address] PCP - General Internal Medicine 09/19/19 Bill Bowens PA-C [address] [place] [address] Assigned PCP 01/14/15 12/03/19 Alex Rao MD [address] [facility] [place] [address] Assigned PCP 12/04/19 02/18/20 Beni Puga MD PhD [address] [facility] [address] Assigned PCP 02/19/20 02/25/20 Alex Rao MD [address] [place] [address] Assigned PCP 02/26/20 03/20/21 Nate Leong MD [address] [address] Assigned Surgical Provider 08/17/20 11/07/22 Sharri Hdez MD 420 [facility] 101 [place], [place] [address] Assigned Endocrinology Provider 12/16/20 03/16/24 Alex Rao MD [address] [facility] [place] [address] Assigned PCP 03/21/21 Alex Rao MD [address] [place] [address] Referring Physician Internal Medicine 04/02/22 Russell Agosto MD 420 [facility] [address] [place] [address] Neurology 04/02/22 Magdalena Fry MD [address] [place] [address] 486 [place] [address] Assigned Heart and Vascular Provider 04/26/22 02/15/24 Doris Chaney [facility] [address] [place] [phone] Pharmacist Pharmacist 07/21/22 Doris Chaney [facility] [address] [place] [address] Assigned MTM Pharmacist 07/26/2202/14 [place] [address] [place] [phone] Nephrology 05/14/23 documented as of this encounter
--- OUTSIDE RECORDS SUMMARY | 2025-04-22 10:09 | XMS_ITS | Encounter Summary ---
Author Organization [facility] Address [address] [place] [address] Care Team Providers Care Senior Technical Trainer Name Role Phone Elsewhere, Pcp Primary Care Provider Unavailabl e Encounter Details Date Type Department Care Team (Latest Contact Info) Description 02/22/2025 Clinical Communication Division of sheet rock taper in [place], [place] [address] [place] [address] Baljit Ramsey M.D., D.D.S. [address] [place] [address] Social History Tobacco Use Types Packs/Day Years Used Date Smoking Tobacco: Former Cigarettes 0.3 4 0 1970 - 1974 Smokeless Tobacco: Never Alcohol Use Standard Drinks/Week Comments Not Currently 0 (1 standard drink = 0.6 oz pur e alcohol) [facility] Utilities Answer Date Recorded In the past 12 months has [facility] [employer] Housekeeper, gas, oil, or water [employer] threatened to shut off services in your [...] your living situation today? I have a [facility] place to live 02/14/2025 Sex and Gender Information Value Date Recorded Sex Assigned at Male 01/06/2025 6:20 PM CDT Legal Sex Male 10:38 AM BINGO CHECKER Gender Identity Male 01/06/2025 6:20 PM CDT Sexual Orientation Straight 01/06/2025 6: 20 PM CDT documented as of this encounter Plan of Treatment Upcoming Encounters Date Type Department Care Team (Latest Contact Info) Description 05/24/2025 8:00 AM CDT Appointment Department of Laboratory Medicine and Pathology, [facility], in [place], [place] [address] [place] [phone] Lexus Olson APRN, C.N.P. [address] [place] [phone] 05/24/2025 9:00 AM CDT Clinical Support Department of Nutrition and Diabetes Education in [place], [place] [address] [place] [phone] Lexus Olson APRN, C.N.P. [address] [place] [phone] Elizabeth Arias, M.S.N., R.N. [address] [place] [phone] 05/24/2025 10:15 AM CDT Appointment Department of Radiology, [facility], in [place], [place] [address] [place] [address] Dallas Lubin APRN, C.N.P., D.N.P. [address] [place] [phone] 05/24/2025 11:00 AM CDT Appointment Division of sheet rock taper in [place], [place] [address] [place] [phone] Dallas Lubin APRN, C.N.P., D.N.P. [address] [place] [phone] 05/24/2025 1:30 PM CDT Comprehensive Visit Division of Endocrinology in [place], [place] [address] [place] [phone] Monik Moreland APRN, C.N.P., M.S. [address] [place] [phone] 06/20/2025 9:30 AM CDT Office Visit Department of Dental Specialties in [place], [place] [address] [place] [phone] Marisol Sandra D.D.S. [address] [place] [phone] documented as of this encounter Visit Diagnoses Not on filedocumented in this encounter Care Teams Senior Technical Trainer Relationship Specialty Start Date End Date Elsewhere, Pcp PCP - General Internal Medicine 02/08/25 documented as of this encounter
--- OUTSIDE RECORDS SUMMARY | 2025-04-22 10:09 | XMS_ITS | Encounter Summary ---
Author Organization [place] Address [facility] [place] [address] Care Team Providers Care Sports Recruiter Name Role Phone Alex Rao MD Primary Care Provider [phone] Nate Leong MD Unavailable [phone] Sharri Hdez MD Unavailable Alex Rao MD Unavailable [phone] Alex Rao MD Unavailable [phone] Russell Agosto MD Unavailable [phone] Magdalena Fry MD Unavailable Doris Chaney [facility] Unavailable Doris Chaney [facility] Unavailable Canelo Kelley MD Unavailable Encounter Details Date Type Department Care Team (Late st Contact Info) Description 10/13/2022 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- [employer] Not on file Not on file Not on file documented as of this encounter Plan of Treatment Upcoming Encounters Date Type Department Care Team (Late st Contact Info) Description 06/30/2025 Ancillary Procedure [address] [phone] Magdalena Fry MD [address] [place] [address] 839035 10/02/2025 Ancillary Procedure [address] [address] Magdalena Fry MD [address] [place] [address] [phone] documented as of this encounter Visit Diagnoses Not on filedocumented in this encounter Additional Health Concerns Assessment Noted Time PHQ-9 Depression Total Score: 9 06/10/20 22 11:44 AM CDT documented as of this encounter Care Teams Sports Recruiter Relationship Specialty Start Date End Date Alex Rao MD PCP - General Internal Medicine 09/19/19 Nate Leong MD [address] [place] [address] Assigned Surgical Provider 08/17/20 11/07/22 Sharri Hdez MD [address] [facility] 101 [place], [place] 76[address] Assigned Endocrinology Provider 12/16/20 03/16/24 Alex Rao MD [address] [facility] [place] [place] 295[address] Assigned PCP 03/21/21 Alex Rao MD [address] [facility] [place], [place] [address] Referring Physician Internal Medicine 04/02/22 Russell Agosto MD 420 [facility] 486 [place], [place] 359115 Neurology 04/02/22 Magdalena Fry MD 420 [facility] 486 [place], [place] 593235 Assigned Heart and Vascular Provider 04/26/22 02/15/24 Doris Chaney [facility] [address] [address] Pharmacist Pharmacist 07/21/22 Doris Chaney [facility] [address] [phone] Assigned MTM Pharmacist 07/26/2202/14 [place] [address] [address] Nephrology 05/14/23 documented as of this encounter
--- OUTSIDE RECORDS SUMMARY | 2025-04-22 10:09 | XMS_ITS | Encounter Summary ---
Author Organization [place] Address [address] [place] [address] Care Team Providers Care Property Insurance Agent Name Role Phone Alex Rao MD Primary Care Provider [phone] Alex Rao MD Unavailable [phone] Beni Puga MD PhD Unavailable Alex aRo MD Unavailable [phone] Nate Leong MD Unavailable [phone] Sharri Hdez MD Unavailable [phone] Alex Rao MD Unavailable [phone] Alex Rao MD Unavailable [phone] Russell Agosto MD Unavailable [phone] Magdalena Fry MD Unavailable Doris Chaney [facility] Unavailable [phone] Doris Chaney [facility] Unavailable Canelo Kelley MD Unavailable Reason for Referral * (Routine) - Closed Specialty Diagnoses / Procedures [facility]erred To Contact Diagnoses Special screening for malignant neoplasms, colon Alex Rao MD Phone: tel: fax: Referral ID Status Reason Start Date Expiration Date Visits Re quested Visits Authorized [id number] Closed 12/08/2019 12/07/2020 1 1 Question Answer Procedure: Colonoscopy Purpose of Procedure: Screening Does the patient have the following? None Is the patient on the following medications? None Preferred Location [facility] Which [place] Provider? No Preference - GI Provider Only Comments Last Lab Result: Creatinine (mg/dL) Date Value 11/24/2019 0.86 There is no height or weight on file to calculate BMI. Railway Signal Operator Needed: No Language: Slovenian Patient will be contacted to schedule procedure. Please be aware that coverage of these services is subject to the terms and limitations of your health insurance plan. Call member services at your health plan with any benefit or coverage questions. Any procedures must be performed at a [place] facility OR coordinated by your clinic's referral office. Please bring the following with you to your appointment: (1) Any X-Rays, CTs or MRIs which have been performed. Contact the facility where they were done to arrange for roller picker prior to your scheduled appointment. (2) List of current medications (3) This referral request (4) Any documents/labs given to you for this referral CAL CLAIMS PROCESSOR Reason for Visit * Reason Onset Date Comments Orders 12/07/2019 colonoscopy Encounter Details Date Type Department Care Team (Late st Contact Info) Description 12/07/2019 MyC Medical Advice [address] [place] [address] Alex Rao MD [address] [place], [place] 847[address] Orders (colonoscopy) Social History Tobacco Use Types Packs/Day Years [...] Legal Sex Male 4:10 AM MEDICAL CLAIMS PROCESSOR Gender Identity Male 11/22/2018 10:40 AM MEDICAL CLAIMS PROCESSOR Sexual Orientation Straight 11/22/2018 10 :40 AM MEDICAL CLAIMS PROCESSOR Occupation Industry Job Start Date Job 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 Travis Bob CMA CAL CLAIMS PROCESSOR * Telephone Encounter - Alex Rao MD - 12/08/2019 12:56 PM CST A referral for colonoscopy has been placed. CAL CLAIMS PROCESSOR * Telephone Encounter - Gisele Collins LPN - 12/07/2019 8:55 AM CST Referral request from pt for colonoscopy. Message routed to provider for further review. Please advise. Gisele collins lpn CAL CLAIMS PROCESSOR documented in this encounter Plan of Treatment Upcoming Encounters Date Type Department Care Team (Late st Contact Info) Description 06/30/2025 Ancillary Procedure [address] [address] Magdalena Fry MD [address] [place] [address] [id number] 10/02/2025 Ancillary Procedure [address] [address] Magdalena Fry MD [address] [place] [address] [phone] Scheduled Referrals Name Type Priority Associated Diagnoses Orde r Schedule GASTROENTEROLOGY ADULT REF PROCEDURE ONLY [facility] ; No Preference - GI Provider Only Referral Routine Special screening for malignant neoplasms, colon Ordered: 12/08/2019 documented as of this encounter Visit Diagnoses Diagnosis Special screening for malignant neoplasms, colon- Primary documented in this encounter Care Teams Property Insurance Agent Relationship Specialty Start Date End Date Alex Rao MD PCP - General Internal Medicine 09/19/19 Alex Rao MD [address] [facility] [address] Assigned PCP 12/04/19 02/18/20 Beni Puga MD PhD [address] [facility] [address] Assigned PCP 02/19/20 02/25/20 Alex Rao MD [address] [facility] [address] Assigned PCP 02/26/20 03/20/21 Nate Leong MD [address] [place] [address] Assigned Surgical Provider 08/17/20 11/07/22 Sharri Hdez MD [address] [place] [address] 101 [place], [place] [address]995 Assigned Endocrinology Provider 12/16/20 03/16/24 Alex Rao MD [address] [place] [address] Assigned PCP 03/21/21 Alex Rao MD [address] [address] [place] [address] Referring Physician Internal Medicine 04/02/22 Russell Agosto MD [address] [address] Neurology 04/02/22 Magdalena Fry MD [address] [address] Assigned Heart and Vascular Provider 04/26/22 02/15/24 Doris Chaney [facility] [address] [phone] Pharmacist Pharmacist 07/21/22 Doris Chaney [facility] [address] [phone] Assigned MTM Pharmacist 07/26/2202/14 [place] [address] [phone] Nephrology 05/14/23 documented as of this encounter
--- OUTSIDE RECORDS SUMMARY | 2025-04-22 10:10 | XMS_ITS | Encounter Summary ---
Author Organization [place] Address [address] [place] [address] Care Team Providers Care Assistant Floor Covering Printer Name Role Phone Alex Rao MD Primary Care Provider [phone] Alex Rao MD Unavailable [phone] Nate Leong MD Unavailable [phone] Sharri Hdez MD Unavailable [phone] Alex Rao MD Unavailable [phone] Alex Rao MD Unavailable [phone] Russell Agosto MD Unavailable [phone] Magdalena Fry MD Unavailable Doris Chaney [facility] Unavailable Doris Chaney [facility] Unavailable Canelo Kelley MD Unavailable Reason for Visit * Reason Comments Medication Refill Encounter Details Date Type Department Care Team (Late st Contact Info) Description [facility] [address] [address] Alex Rao MD [address] [place] [address] Medication Refill Social History Tobacco [...] AM CDT Legal Sex Male 4:10 AM SUPERVISOR HANGING AND TRIMMING Gender Identity Male 11/22/2018 10:40 AM SUPERVISOR HANGING AND TRIMMING Sexual Orientation Straight 11/22/2018 10 :40 AM SUPERVISOR HANGING AND TRIMMING Occupation Industry Job Start Date Job 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- [employer] Not on file Not on file Not on file documented as of this encounter Miscellaneous Notes * Telephone Encounter - Dayna Lockhart RN - 12/05/2020 5:31 PM CST Routing refill request to provider for review/approval because: Drug not on the [facility] refill protocol Dayna Lcokhart RN, BSN, PHN RVISOR HANGING AND TRIMMING documented in this encounter Plan of Treatment Upcoming Encounters Date Type Department Care Team (Late st Contact Info) Description 06/30/2025 Ancillary Procedure [address] [address] Magdalena Fry MD [address] [place] [address] [id number] 10/02/2025 Ancillary Procedure [address] [address] Magdalena Fry MD [address] [place] [address] documented as of this encounter Visit Diagnoses Diagnosis Type 2 diabetes mellitus without complication, without long-term current use of insulin (H) documented in this encounter Care Teams Assistant Floor Covering Printer Relationship Specialty Start Date End Date Alex Rao MD PCP - General Internal Medicine 09/19/19 Alex Rao MD [address] [place] [address] Assigned PCP 02/26/20 03/20/21 Nate Leong MD [address] [address] Assigned Surgical Provider 08/17/20 11/07/22 Sharri Hdez MD [address] 676[address] Assigned Endocrinology Provider 12/16/20 03/16/24 Alex Rao MD [address] [place] [address] Assigned PCP 03/21/21 Alex Rao MD [address] [place] [address] Referring Physician Internal Medicine 04/02/22 Russell Agosto MD [address] 891335 Neurology 04/02/22 Magdalena Fry MD [address] 887955 Assigned Heart and Vascular Provider 04/26/22 02/15/24 Doris Chaney, [facility] [address] [place] [phone] Pharmacist Pharmacist 07/21/22 Doris Chaney [facility] [address] [phone] Assigned MTM Pharmacist 07/26/2202/14 [place] [address] [phone] Nephrology 05/14/23 documented as of this encounter
--- OUTSIDE RECORDS SUMMARY | 2025-04-22 10:10 | XMS_ITS | Encounter Summary ---
Author Organization [place] Address [address] [place] [address] Care Team Providers Care Farm Tractor Operator Name Role Phone Alex Rao MD Primary Care Provider [phone] Alex Rao MD Unavailable [phone] Nate Leong MD Unavailable [phone] Sharri Hdez MD Unavailable [phone] Alex Rao MD Unavailable [phone] Alex Rao MD Unavailable [phone] Russell Agosto MD Unavailable [phone] Magdalena Fry MD Unavailable Doris Chaney [facility] Unavailable Doris Chaney [facility] Unavailable Canelo Kelley MD Unavailable Reason for Visit * Reason Comments Medication Refill ATORVASTATIN CALCIUM 40MG TABS, Encounter Details Date Type Department Care Team (Late st Contact Info) Description 09/16/[address] [address] Alex Rao MD [address] [place] [address] Medication Refill (ATORVASTATIN CALCIUM 40MG TABS, ) Social History Tobacco Use Types Packs/Day Years [...] AM CDT Legal Sex Male 4:10 AM HEMATOLOGY SUPERVISOR Gender Identity Male 11/22/2018 10:40 AM HEMATOLOGY SUPERVISOR Sexual Orientation Straight 11/22/2018 10 :40 AM HEMATOLOGY SUPERVISOR Occupation Industry Job Start Date Job 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 No / Unsure 08/28/2020 9:24 AM HEMATOLOGY SUPERVISOR documented as of this encounter Miscellaneous Notes * Telephone Encounter - Natasha Daniel RN - 09/19/2020 4:21 PM CST TAMSULOSIN HCL 0.4MG CAPS Last Written Prescription Date: Last Fill Quantity: 90, # refills: 3 Last Office Visit : 06/19/2020 Future Office visit: None Abnormal B/P Refer to Provider for review and refills Per Providers orders. 07/31/20 (!) 143/72 LISINOPRIL 10MG TABS Last Written Prescription Date: Last Fill Quantity: 90, # refills: 3 Last Office Visit : 06/19/2020 Future Office visit: None Abnormal B/P Refer to Provider for review and refills Per Providers orders. 07/31/20 (!) 14372 Natasha Daniel RN Central Triage Red Flags/Med Refills ATORVASTATIN CALCIUM 40MG TABS Last Written Prescription Date: Last Fill Quantity: 90, # refills: 3 Last Office Visit : 06/19/2020 Future Office visit: None 90 Tabs, 3 Refills sent to pharm 09/19/2020 TOLOGY SUPERVISOR documented in this encounter Plan of Treatment Upcoming Encounters Date Type Department Care Team (Late st Contact Info) Description 06/30/2025 Ancillary Procedure [address] [address] Magdalena Fry MD [address] [place] [address] 10/02/2025 Ancillary Procedure [address] [address] Magdalena Fry MD [address] [place] [address] documented as of this encounter Visit Diagnoses Diagnosis Hypertrophy of prostate without urinary obstruction Unspecified hyperplasia of prostate without urinary obstruction and other lower urinary tract symptoms (LUTS) Hyperlipidemia LDL goal <100 Other and unspecified hyperlipidemia Essential hypertension with goal blood pressure less than 140/90 documented in this encounter Care Teams Farm Tractor Operator Relationship Specialty Start Date End Date Alex Rao MD PCP - General Internal Medicine 09/19/19 Alex Rao MD [address] [place] [address] Assigned PCP 02/26/20 03/20/21 Nate Leong MD [address] 041525 Assigned Surgical Provider 08/17/20 11/07/22 Sharri Hdez MD [address] [place] [address] 101 [place], [place] 584[address] Assigned Endocrinology Provider 12/16/20 03/16/24 Alex Rao MD [address] [place] [address] Assigned PCP 03/21/21 Alex Rao MD [address] [place] [address] Referring Physician Internal Medicine 04/02/22 Russell Agosto MD [address] [address] Neurology 04/02/22 Magdalena Fry MD [address] [address] Assigned Heart and Vascular Provider 04/26/22 02/15/24 Doris Chaney [facility] [address] [phone] Pharmacist Pharmacist 07/21/22 Doris Chaney [facility] [address] [phone] Assigned MTM Pharmacist 07/26/2202/14 [place] [address] [phone] Nephrology 05/14/23 documented as of this encounter
--- OUTSIDE RECORDS SUMMARY | 2025-04-22 10:10 | XMS_ITS | Encounter Summary ---
Author Organization [place] Address [address] [place] [address] Care Team Providers Care Curator Name Role Phone Antonio Celeste MD Primary Care Provider U nealsharon Bill Bowens PA-C Primary Care Provider + Bill Bowens PA-C Unavailable [phone] Bill Bowens PA-C Unavailable [phone] Alex Rao MD Primary Care Provider [phone] Alex Rao MD Unavailable [phone] Beni Puga MD PhD Unavailable Alex Rao MD Unavailable [phone] Nate Leong MD Unavailable [phone] Sharri Hdez MD Unavailable [phone] Alex Rao MD Unavailable [phone] Alex Rao MD Unavailable [phone] Russell Agosto MD Unavailable [phone] Magdalena Fry MD Unavailable Doris Chaney [facility] Unavailable [phone] Doris Chaney [facility] Unavailable [phone] Canelo Kelley MD Unavailable Reason for Visit * Reason Onset Date Comments Previsit 07/11/2013 Encounter Details Date Type Department Care Team (Late Contact Info) Description 07/11/2013 MyC Medical Advice [address] [phone] Enmanuelreyclaudette [place] Previsit Social History Tobacco Use Types Packs/Day Years [...] CDT Legal Sex Male 4:10 AM PRODUCTION INTERNSHIP Gender Identity Male 11/22/2018 10:40 AM PRODUCTION INTERNSHIP Sexual Orientation Straight 11/22/2018 10 :40 AM PRODUCTION INTERNSHIP Occupation Industry Job Start Date Job 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- [employer] Not on file Not on file Not on file documented as of this encounter Plan of Treatment Upcoming Encounters Date Type Department Care Team (Late st Contact Info) Description 06/30/2025 Ancillary Procedure [address] [address] Magdalena Fry MD [address] [place] [address] [phone] 10/02/2025 Ancillary Procedure [address] [address] Magdalena Fry MD [address] [place] [address] [phone] documented as of this encounter Visit Diagnoses Not on filedocumented in this encounter Care Teams Curator Relationship Specialty Start Date End Date Antonio Celeste MD NO INFO AVAILABLE 08/25/2022 PCP - General 03/24/03 02/19/15 Bill Bowens PA-C NO INFO AVAILABLE 08/25/2022 PCP - General Physician Employee Relations Representative 02/20/15 09/18/19 Bill Bowens PA-C [address] [address] PCP - Assigned PCP 01/14/15 12/28/18 Alex Rao MD [address] [address] PCP - General Internal Medicine 09/19/19 Bill Bowens PA-C [address] [address] Assigned PCP 01/14/15 12/03/19 Alex Rao MD [address] [place] [address] Assigned PCP 12/04/19 02/18/20 Beni Puga MD PhD [address] [place] [address] Assigned PCP 02/19/20 02/25/20 Alex Rao MD [address] [place] [address] Assigned PCP 02/26/20 03/20/21 Nate Leong MD [address] [place] [address] Assigned Surgical Provider 08/17/20 11/07/22 Sharri Hdez MD 420 [facility] 101 [place], [place] 6180[address] Assigned Endocrinology Provider 12/16/20 03/16/24 Alex Rao MD [address] [facility] [place] [place] 160[address] Assigned PCP 03/21/21 Alex Rao MD [address] [facility] [place], [place] 0[address] Referring Physician Internal Medicine 04/02/22 Russell Agosto MD 420 [facility] 486 [place], [place] 2984[address] Neurology 04/02/22 Magdalena Fry MD 420 [facility] 486 [place], [place] 8437[address] Assigned Heart and Vascular Provider 04/26/22 02/15/24 Doris Chaney [facility] [address] [address] Pharmacist Pharmacist 07/21/22 Doris Chaney [facility] [address] [phone] Assigned MTM Pharmacist 07/26/2202/14 [place] [address] [address] Nephrology 05/14/23 documented as of this encounter
--- OUTSIDE RECORDS SUMMARY | 2025-04-22 10:10 | XMS_ITS | Encounter Summary ---
Author Organization [place] Address [address] [place] [address] Care Team Providers Care Chemist Physical Name Role Phone Alex Rao MD Primary Care Provider [phone] Alex Rao MD Unavailable [phone] Nate Leong MD Unavailable [phone] Sharri Hdez MD Unavailable Alex Rao MD Unavailable [phone] Alex Rao MD Unavailable [phone] Russell Agosto MD Unavailable [phone] Magdalena Fry MD Unavailable Doris Chaney [facility] Unavailable [phone] Doris Chaney [facility] Unavailable Canelo Kelley MD Unavailable Encounter Details Date Type Department Care Team (Late st Contact Info) Description 12/10/2020 [facility] Avila [address] [address] Shilpa Barnett CMA Social History Tobacco Use Types Packs/Day Years [...] AM CDT Legal Sex Male 4:10 AM APPLICATION SUPPORT INTERN Gender Identity Male 11/22/2018 10:40 AM APPLICATION SUPPORT INTERN Sexual Orientation Straight 11/22/2018 10 :40 AM APPLICATION SUPPORT INTERN Occupation Industry Job Start Date Job 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 No / Unsure 12/10/2020 9:51 AM APPLICATION SUPPORT INTERN documented as of this encounter Plan of Treatment Upcoming Encounters Date Type Department Care Team (Late st Contact Info) Description 06/30/2025 Ancillary Procedure [address] [address] Magdalena Fry MD [address] [place] [address] [phone] 10/02/2025 Ancillary Procedure [address] [address] Magdalena Fry MD [address] [place] [address] [phone] documented as of this encounter Visit Diagnoses Not on filedocumented in this encounter Care Teams Chemist Physical Relationship Specialty Start Date End Date Alex Rao MD PCP - General Internal Medicine 09/19/19 Alex Rao MD [address]20 [place] [address] Assigned PCP 02/26/20 03/20/21 Nate Leong MD [address] [place] [address] Assigned Surgical Provider 08/17/20 11/07/22 Sharri Hdez MD 420 [facility] [address] [place] [address] Assigned Endocrinology Provider 12/16/20 03/16/24 Alex Rao MD [address] [place] 2532[address] Assigned PCP 03/21/21 Alex Rao MD [address] [place] 7578[address] Referring Physician Internal Medicine 04/02/22 Russell Agosto MD 420 [facility] 486 [place], [place] [address] Neurology 04/02/22 Magdalena Fry MD 420 [facility] [address] [place], [place] 295195 Assigned Heart and Vascular Provider 04/26/22 02/15/24 Doris Chaney [facility] [address] [phone] Pharmacist Pharmacist 07/21/22 Doris Chaney [facility] [address] [phone] Assigned MTM Pharmacist 07/26/2202/14 [place] [address] [phone] Nephrology 05/14/23 documented as of this encounter
--- OUTSIDE RECORDS SUMMARY | 2025-04-22 10:10 | XMS_ITS | Encounter Summary ---
Author Organization [facility] Address [address] [place] [address] Care Team Providers Care Director Electrical Engineering Name Role Phone Alex Rao MD Primary Care Provider [phone] Alex Rao MD Unavailable [phone] Nate Leong MD Unavailable [phone] Sharri Hdez MD Unavailable Alex Rao MD Unavailable [phone] Alex Rao MD Unavailable [phone] Russell Agosto MD Unavailable [phone] Magdalena Fry MD Unavailable Doris Chaney [facility] Unavailable Doris Chaney [facility] Unavailable Canelo Kelley MD Unavailable Encounter Details Date Type Department Care Team (Late st Contact Info) Description 07/31/2020 [facility] Bernard Avila [address] [address] Rehana Hoyt Social History Tobacco [...] AM CDT Legal Sex Male 4:10 AM GUIDE Gender Identity Male 11/22/2018 10:40 AM GUIDE Sexual Orientation Straight 11/22/2018 10 :40 AM GUIDE Occupation Industry Job Start Date Job 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 No / Unsure 08/02/2020 8:10 AM CDT documented as of this encounter Plan of Treatment Upcoming Encounters Date Type Department Care Team (Late st Contact Info) Description 06/30/2025 Ancillary Procedure [address] [address] Magdalena Fry MD [address] [place] [address] [phone] 10/02/2025 Ancillary Procedure [address] [phone] Magdalena Fry MD [address] [place] [address] [phone] documented as of this encounter Visit Diagnoses Not on filedocumented in this encounter Care Teams Director Electrical Engineering Relationship Specialty Start Date End Date Alex Rao MD PCP - General Internal Medicine 09/19/19 Alex Rao MD [address] [place] [address] Assigned PCP 02/26/20 03/20/21 Nate Leong MD [address] [place] [address] Assigned Surgical Provider 08/17/20 11/07/22 Sharri Hdez MD 420 [facility] [address] [place] [address] Assigned Endocrinology Provider 12/16/20 03/16/24 Alex Rao MD 6320 [facility] [place], [place] 912[address] Assigned PCP 03/21/21 Alex Rao MD 6320 [facility] [place], [place] 4038[address] Referring Physician Internal Medicine 04/02/22 Russell Agosto MD 420 [facility] [address] [place] [address] Neurology 04/02/22 Magdalena Fry MD [address] [place] [address] 486 [place], [place] 743535 Assigned Heart and Vascular Provider 04/26/22 02/15/24 Doris Chaney [facility] [address] [phone] Pharmacist Pharmacist 07/21/22 Doris Chaney [facility] [address] [phone] Assigned MTM Pharmacist 07/26/2202/14 [place] [address] [phone] Nephrology 05/14/23 documented as of this encounter
--- OUTSIDE RECORDS SUMMARY | 2025-04-22 10:10 | XMS_ITS | Encounter Summary ---
Author Organization [facility] Address [address] [place] [address] Care Team Providers Care Production Designer Name Role Phone Antonio Celeste MD Primary Care Provider U nealsharon Bill Bowens PA-C Primary Care Provider + Bill Bowens PA-C Unavailable [phone] Bill Boewns PA-C Unavailable [phone] Alex Rao MD Primary Care Provider [phone] Alex Rao MD Unavailable Beni Puga MD PhD Unavailable Alex Rao MD Unavailable [phone] Nate Leong MD Unavailable [phone] Sharri Hdez MD Unavailable [phone] Alex Rao MD Unavailable [phone] Alex Rao MD Unavailable [phone] Russell Agosto MD Unavailable [phone] Magdalena Fry MD Unavailable Doris Chaney [facility] Unavailable [phone] Doris Chanye [facility] Unavailable [phone] Canelo Kelley MD Unavailable Encounter Details Date Type Department Care Team (Late st Contact Info) Description 02/15/2013 [facility] Medical Advice [address] [address] Taiwo Yañez Social History Tobacco [...] AM CDT Legal Sex Male 4:10 AM PACU RN Gender Identity Male 11/22/2018 10:40 AM PACU RN Sexual Orientation Straight 11/22/2018 10 :40 AM PACU RN Occupation Industry Job Start Date Job 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- [employer] Not on file Not on file Not on file documented as of this encounter Plan of Treatment Upcoming Encounters Date Type Department Care Team (Late st Contact Info) Description 06/30/2025 Ancillary Procedure [address] [address] Magdalena Fry MD [address] [place] [address] 10/02/2025 Ancillary Procedure [address] [phone] Magdalena Fry MD [address] [place] [address] [phone] documented as of this encounter Visit Diagnoses Not on filedocumented in this encounter Care Teams Production Designer Relationship Specialty Start Date End Date Antonio Celeste MD NO INFO AVAILABLE 08/25/2022 PCP - General 03/24/03 02/19/15 Bill Bowens PA-C NO INFO AVAILABLE 08/25/2022 PCP - General Physician Missile And Missile Checkout Technician 02/20/15 09/18/19 Bill Bowens PA-C [address] [address] PCP - Assigned PCP 01/14/15 12/28/18 Alex Rao MD [address] [address] PCP - General Internal Medicine 09/19/19 Bill Bowens PA-C [address] [address] Assigned PCP 01/14/15 12/03/19 Alex Rao MD 63[address] [place] [address] Assigned PCP 12/04/19 02/18/20 Beni Puga MD PhD [address] [facility] [place] [address] Assigned PCP 02/19/20 02/25/20 Alex Rao MD [address] [place] [address] Assigned PCP 02/26/20 03/20/21 Nate Leong MD [address] [place] [address] Assigned Surgical Provider 08/17/20 11/07/22 Sharri Hdez MD 420 [facility] 101 [place] [address] Assigned Endocrinology Provider 12/16/20 03/16/24 Alex Rao MD 6320 [facility] [place] [address] Assigned PCP 03/21/21 Alex Rao MD 63[address] [facility] [place] [address] Referring Physician Internal Medicine 04/02/22 Russell Agosto MD 420 [facility] 486 [place] [address] Neurology 04/02/22 Magdalena Fry MD [address] [place] [address] Assigned Heart and Vascular Provider 04/26/22 02/15/24 Doris Chaney [facility] [address] [phone] Pharmacist Pharmacist 07/21/22 Doris Chaney [facility] [address] [phone] Assigned MTM Pharmacist 07/26/2202/14 [place] [address] [phone] Nephrology 05/14/23 documented as of this encounter
--- OUTSIDE RECORDS SUMMARY | 2025-04-22 10:10 | XMS_ITS | Encounter Summary ---
Author Organization [facility] Address [address] [place] [address] Care Team Providers Care Musical Instruments Assembler Name Role Phone Alex Rao MD Primary Care Provider [phone] Alex Rao MD Unavailable [phone] Alex Rao MD Unavailable [phone] Russell Agosto MD Unavailable [phone] Doris Chaney [facility] Unavailable Canelo Kelley MD Unavailable Encounter Details Date Type Department Care Team (Latest Contact Info) Description 03/31/2025 Travel Social History Tobacco Use Types Packs/Day Years [...] AM CDT Legal Sex Male 4:[address] REPORTER Gender Identity Male 11/22/2018 10:[address] REPORTER Sexual Orientation Straight 11/22/2018 10 :[address] REPORTER Occupation Industry Job Start Date Job 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- [employer] Not on file Not on file Not on file documented as of this encounter Plan of Treatment Upcoming Encounters Date Type Department Care Team (Late st Contact Info) Description 06/30/2025 Ancillary Procedure [address] [phone] Magdalena Fry MD [address] [place] [address] [phone] 10/02/2025 Ancillary Procedure [address] [phone] Magdalena Fry MD [address] [place] [address] [phone] documented as of this encounter Visit Diagnoses Not on filedocumented in this encounter Additional Health Concerns Assessment Noted Time PHQ-9 Depression Total Score: 9 06/10/20 22 11:44 AM CDT documented as of this encounter Care Teams Musical Instruments Assembler Relationship Specialty Start Date End Date Alex Rao MD PCP - General Internal Medicine 09/19/19 Alex Rao MD [address] [place], [place] 675[address] Assigned PCP 03/21/21 Alex Rao MD [address] [place] [address] Referring Physician Internal Medicine 04/02/22 Russell Agosto MD [address] [place] [address] Neurology 04/02/22 Doris Chaney, [facility] [address] [place] [phone] Pharmacist Pharmacist 07/21/22 [place] [address] [phone] Nephrology 05/14/23 documented as of this encounter
--- OUTSIDE RECORDS SUMMARY | 2025-04-22 10:10 | XMS_ITS | Encounter Summary ---
Author Organization [facility] Address [address] [place] [address] Care Team Providers Care Bicycle Ii Assembler Name Role Phone Alex Rao MD Primary Care Provider [phone] Alex Rao MD Unavailable [phone] Nate Leong MD Unavailable [phone] Sharri Hdez MD Unavailable Alex Rao MD Unavailable [phone] Alex Rao MD Unavailable [phone] Russell Agosto MD Unavailable [phone] Magdalena Fry MD Unavailable Doris Chaney [facility] Unavailable [phone] 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 No / Unsure 12/10/2020 9:51 AM PONDMAN documented as of this encounter Plan of Treatment Upcoming Encounters Date Type Department Care Team (Late st Contact Info) Description 06/30/2025 Ancillary Procedure [address] [address] Magdalena Fry MD [address] [place] [address] [phone] 10/02/2025 Ancillary Procedure [address] [address] Magdalena Fry MD [address] [place] [address] [phone] documented as of this encounter Visit Diagnoses Not on filedocumented in this encounter Care Teams Bicycle Ii Assembler Relationship Specialty Start Date End Date Alex Rao MD PCP - General Internal Medicine 09/19/19 Alex Rao MD [address]20 [place] [address] Assigned PCP 02/26/20 03/20/21 Nate Leong MD [address] [place] [address] Assigned Surgical Provider 08/17/20 11/07/22 Sharri Hdez MD 420 [facility] 101 [place] [address] Assigned Endocrinology Provider 12/16/20 03/16/24 Alex Rao MD [address] [place] [place], [place] 755181 Assigned PCP 03/21/21 Alex Rao MD [address] [place], [place] 6768[address] Referring Physician Internal Medicine 04/02/22 Russell Agosto MD 420 [facility] 486 [place], [place] 9795[address] Neurology 04/02/22 Magdalena Fry MD 420 [facility] [address] [place], [place] 223485 Assigned Heart and Vascular Provider 04/26/22 02/15/[address] [facility] [address] [phone] Pharmacist Pharmacist 07/21/[address] [facility] [address] [phone] Assigned MTM Pharmacist 07/26/2202/14 [place] [address] [phone] Nephrology 05/14/23 documented as of this encounter
--- OUTSIDE RECORDS SUMMARY | 2025-04-22 10:10 | XMS_ITS | Encounter Summary ---
Author Organization [facility] Address [address] [place] [address] Care Team Providers Care Preschool Associate Teacher Name Role Phone Antonio Celeste MD Primary Care Provider U nealsharon Bill Bowens PA-C Primary Care Provider + Bill Bowens PA-C Unavailable [phone] Bill Bowens PA-C Unavailable [phone] Alex Rao MD Primary Care Provider [phone] Alex Rao MD Unavailable [phone] Beni Puga MD PhD Unavailable Alex Rao MD Unavailable [phone] Nate Leong MD Unavailable [phone] Sharri Hdez MD Unavailable [phone] Alex Rao MD Unavailable [phone] Alex Rao MD Unavailable [phone] Russell Agosto MD Unavailable [phone] Magdalena Fry MD Unavailable Doris Chaney [facility] Unavailable [phone] Doris Chaney [facility] Unavailable [phone] Canelo Kelley MD Unavailable Encounter Details Date Type Department Care Team (Late st Contact Info) Description 01/16/2014 MyC Medical Advice Initial Department Taiwo Yañez [...] AM CDT Legal Sex Male 4:10 AM SUBSTATION ENGINEER Gender Identity Male 11/22/2018 10:40 AM SUBSTATION ENGINEER Sexual Orientation Straight 11/22/2018 10 :40 AM SUBSTATION ENGINEER Occupation Industry Job Start Date Job 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- [employer] Not on file Not on file Not on file documented as of this encounter Plan of Treatment Upcoming Encounters Date Type Department Care Team (Late st Contact Info) Description 06/30/2025 Ancillary Procedure [address] [phone] Magdalena Fry MD [address] [place] [address] 513385 10/02/2025 Ancillary Procedure [address] [address] Magdalena Fry MD [address] [place] [address] [phone] documented as of this encounter Visit Diagnoses Not on filedocumented in this encounter Care Teams Preschool Associate Teacher Relationship Specialty Start Date End Date Antonio Celeste MD NO INFO AVAILABLE 08/25/2022 PCP - General 03/24/03 02/19/15 Bill Bowens PA-C NO INFO AVAILABLE 08/25/2022 PCP - General Physician Environmental Services Attendant 02/20/15 09/18/19 Bill Bowens PA-C [address] [place] [address] PCP - Assigned PCP 01/14/15 12/28/18 Alex Rao MD [address] [place] [address] PCP - General Internal Medicine 09/19/19 Bill Bowens PA-C [address] [place] [address] Assigned PCP 01/14/15 12/03/19 Alex Rao MD [address] [facility] [place] [place] 18[address]21 Assigned PCP 12/04/19 02/18/20 Beni Puga MD PhD [address] [facility] [place] [address] Assigned PCP 02/19/20 02/25/20 Alex Rao MD [address] [facility] [place] [address] Assigned PCP 02/26/20 03/20/21 Nate Leong MD [address] [facility] [place] 452485 Assigned Surgical Provider 08/17/20 11/07/22 Sharri Hdez MD [address] [place] [address] 537035 Assigned Endocrinology Provider 12/16/20 03/16/24 Alex Rao MD [address] [facility] [place] 520011 Assigned PCP 03/21/21 Alex Rao MD [address] [address] Referring Physician Internal Medicine 04/02/22 Russell Agosto MD [address] [place] [address] 829275 Neurology 04/02/22 Magdalena Fry MD [address] [place] [address] 086785 Assigned Heart and Vascular Provider 04/26/22 02/15/24 Doris Chaney [facility] [address] [phone] Pharmacist Pharmacist 07/21/22 [facility] [address] [phone] Assigned MTM Pharmacist 07/26/2202/14 [place] [address] [phone] Nephrology 05/14/23 documented as of this encounter
--- OUTSIDE RECORDS SUMMARY | 2025-04-22 10:10 | XMS_ITS | Encounter Summary ---
Author Organization [facility] Address [address] [place] [address] Care Team Providers Care Winder Operator Name Role Phone Antonio Celeste MD Primary Care Provider U nealsharon Bill Bowens PA-C Primary Care Provider + Bill Bowens PA-C Unavailable [phone] Bill Bowens PA-C Unavailable [phone] Alex Rao MD Primary Care Provider [phone] Alex Rao MD Unavailable [phone] Beni Puga MD PhD Unavailable Alex Rao MD Unavailable [phone] Nate Leong MD Unavailable [phone] Sharri Hdez MD Unavailable [phone] Alex Rao MD Unavailable [phone] Alex Rao MD Unavailable [phone] Russell Agosto MD Unavailable [phone] Magdalena Fry MD Unavailable Doris Chaney [facility] Unavailable [phone] Doris Chaney [facility] Unavailable [phone] Canelo Kelley MD Unavailable Reason for Visit * Reason Onset Date Comments Orders 05/03/2013 Encounter Details Date Type Department Care Team (Late st Contact Info) Description 05/03/2013 My[facility] Medical Advice [address] [phone] Antonio Celeste MD NO INFO AVAILABLE 08/25/2022 Orders Social History Tobacco Use Types Packs/Day Years [...] AM CDT Legal Sex Male 4:10 AM STENCILER Gender Identity Male 11/22/2018 10:40 AM STENCILER Sexual Orientation Straight 11/22/2018 10 :40 AM STENCILER Occupation Industry Job Start Date Job 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 Celeste Can you please place the order for his A1C? Patient has appointment on Thursday for labs only. Thank you Magi Shaikh MA May 03, 201311:27 AM documented in this encounter Plan of Treatment Upcoming Encounters Date Type Department Care Team (Late st Contact Info) Description 06/30/2025 Ancillary Procedure [address] [place] [address] Magdalena Fry MD [address] [place] [address] 10/02/2025 Ancillary Procedure [place] [phone] [facility] [address] [place] [address] Magdalena Fry MD [address] [place], [place] 112285 documented as of this encounter Visit Diagnoses Diagnosis Type 2 diabetes, HbA1c goal < 7% (H)- Primary Type II or unspecified type diabetes mellitus without mention of complication, not stated as uncontrolled documented in this encounter Care Teams Winder Operator Relationship Specialty Start Date End Date Antonio Celeste MD NO INFO AVAILABLE 08/25/2022 PCP - General 03/24/03 02/19/15 Bill Bowens PA-C NO INFO AVAILABLE 08/25/2022 PCP - General Physician Syrup Shed Supervisor 02/20/15 09/18/19 Bill Bowens PA-C [address] [place] [address] PCP - Assigned PCP 01/14/15 12/28/18 Alex Rao MD [address] [place] [address] PCP - General Internal Medicine 09/19/19 Bill Bowens PA-C [address] [place] [address] Assigned PCP 01/14/15 12/03/19 Alex Rao MD 6320 [facility] [address] Assigned PCP 12/04/19 02/18/20 Beni Puga MD PhD [address] [facility] [place] [place] [address] Assigned PCP 02/19/20 02/25/20 Alex Rao MD 6320 [facility] [place] [address] Assigned PCP 02/26/20 03/20/21 Nate Leong MD [address] 177535 Assigned Surgical Provider 08/17/20 11/07/22 Sharri Hdez MD 420 [facility] 101 [place] [address] Assigned Endocrinology Provider 12/16/20 03/16/24 Alex Rao MD [address] [facility] [place] [address] Assigned PCP 03/21/21 Alex Rao MD [address] [facility] [place] [address] Referring Physician Internal Medicine 04/02/22 Russell Agosto MD 420 [facility] 486 [place], [place] 5760[address] Neurology 04/02/22 Magdalena Fry MD 420 [facility] 486 [place], [place] 011055 Assigned Heart and Vascular Provider 04/26/22 02/15/24 Doris Chaney, [facility] [address] [phone] Pharmacist Pharmacist 07/21/22 [facility] [address] [address] Assigned MTM Pharmacist 07/26/2202/14 [place] [address] [phone] Nephrology 05/14/23 documented as of this encounter
--- OUTSIDE RECORDS SUMMARY | 2025-04-22 10:10 | XMS_ITS | Encounter Summary ---
Author Organization [facility] Address [address] [place] [address] Care Team Providers Care Egg Setter Name Role Phone Antonio Celeste MD Primary Care Provider U nealsharon Bill Bowens PA-C Primary Care Provider + Bill Bowens PA-C Unavailable [phone] Bill Bowens PA-C Unavailable [phone] Alex Rao MD Primary Care Provider [phone] Alex Rao MD Unavailable [phone] Beni Puga MD PhD Unavailable Alex Rao MD Unavailable [phone] Nate Leong MD Unavailable [phone] Sharri Hdez MD Unavailable [phone] Aelx Rao MD Unavailable [phone] Alex Rao MD Unavailable Russell Agosto MD Unavailable [phone] Magdalena Fry MD Unavailable Doris Chaney [facility] Unavailable [phone] Doris Chaney [facility] Unavailable [phone] Canelo Kelley MD Unavailable Encounter Details Date Type Department Care Team (Late Contact Info) Description 07/05/2013 MyC Medical Advice [address] [phone] Taiwo Yañez Social History Tobacco Use Types [...] AM CDT Legal Sex Male 4:10 AM SATELLITE COMMUNICATIONS OPERATOR Gender Identity Male 11/22/2018 10:40 AM SATELLITE COMMUNICATIONS OPERATOR Sexual Orientation Straight 11/22/2018 10 :40 AM SATELLITE COMMUNICATIONS OPERATOR Occupation Industry Job Start Date Job 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- [employer] Not on file Not on file Not on file documented as of this encounter Plan of Treatment Upcoming Encounters Date Type Department Care Team (Late st Contact Info) Description 06/30/2025 Ancillary Procedure [address] [phone] Magdalena Fry MD [address] [place] [address] 10/02/2025 Ancillary Procedure [address] [phone] Magdalena Fry MD [address] [place] [address] [phone] documented as of this encounter Visit Diagnoses Not on filedocumented in this encounter Care Teams Egg Setter Relationship Specialty Start Date End Date Antonio Celeste MD NO INFO AVAILABLE 08/25/2022 PCP - General 03/24/03 02/19/15 Bill Bowens PA-C NO INFO AVAILABLE 08/25/2022 PCP - General Physician Warehouse Selector 02/20/15 09/18/19 Bill Bowens PA-C [address] [address] PCP - Assigned PCP 01/14/15 12/28/18 Alex Rao MD [address] [address] PCP - General Internal Medicine 09/19/19 Bill Bowens PA-C [address] [address] Assigned PCP 01/14/15 12/03/19 Alex Rao MD [address] [place] [address] Assigned PCP 12/04/19 02/18/20 Beni Puga MD PhD [address] [facility] [address] Assigned PCP 02/19/20 02/25/20 Alex Rao MD [address] [place] [address] Assigned PCP 02/26/20 03/20/21 Nate Leong MD [address] [place] [address] Assigned Surgical Provider 08/17/20 11/07/22 Sharri Hdez MD 420 [facility] 101 [place] [address] Assigned Endocrinology Provider 12/16/20 03/16/24 Alex Rao MD [address] [facility] [address] Assigned PCP 03/21/21 Alex Rao MD [address] [place] [address] Referring Physician Internal Medicine 04/02/22 Russell Agosto MD 420 [facility] 486 [place] [address] Neurology 04/02/22 Magdalena Fry MD [address] [place] [address] Assigned Heart and Vascular Provider 04/26/22 02/15/24 Doris Chaney [facility] [address] [phone] Pharmacist Pharmacist 07/21/22 Doris Chaney [facility] [address] [phone] Assigned MTM Pharmacist 07/26/2202/14 [place] [address] [phone] Nephrology 05/14/23 documented as of this encounter
--- OUTSIDE RECORDS SUMMARY | 2025-04-22 10:10 | XMS_ITS | Encounter Summary ---
Author Organization [facility] Address [address] [place] [address] Care Team Providers Care Seo Coordinator Name Role Phone Antonio Celeste MD Primary Care Provider U nealsharon Bill Bowens PA-C Primary Care Provider + Bill Bowens PA-C Unavailable [phone] Bill Bowens PA-C Unavailable [phone] Alex Rao MD Primary Care Provider [phone] Alex Rao MD Unavailable [phone] Beni Puga MD PhD Unavailable Alex Rao MD Unavailable [phone] Nate Leong MD Unavailable [phone] Sharri Hdez MD Unavailable [phone] Alex Rao MD Unavailable [phone] Alex Rao MD Unavailable [phone] Russell Agosto MD Unavailable [phone] Magdalena Fry MD Unavailable Doris Chaney [facility] Unavailable [phone] Doris Chaney [facility] Unavailable [phone] Canelo Kelley MD Unavailable Encounter Details Date Type Department Care Team (Late st Contact Info) Description 12/29/2012 MyC Medical Advice [address] [phone] Taiwo Yañez Social History Tobacco Use Types [...] AM CDT Legal Sex Male 4:10 AM GASOLINE TRUCK CRANE OPERATOR Gender Identity Male 11/22/2018 10:40 AM GASOLINE TRUCK CRANE OPERATOR Sexual Orientation Straight 11/22/2018 10 :40 AM GASOLINE TRUCK CRANE OPERATOR Occupation Industry Job Start Date Job 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- [employer] Not on file Not on file Not on file documented as of this encounter Plan of Treatment Upcoming Encounters Date Type Department Care Team (Late st Contact Info) Description 06/30/2025 Ancillary Procedure [address] [phone] Magdalena Fry MD [address] [place] [address] 10/02/2025 Ancillary Procedure [address] [phone] Magdalena Fry MD [address] [place] [address] [phone] documented as of this encounter Visit Diagnoses Not on filedocumented in this encounter Care Teams Seo Coordinator Relationship Specialty Start Date End Date Antonio Celeste MD NO INFO AVAILABLE 08/25/2022 PCP - General 03/24/03 02/19/15 Bill Bowens PA-C NO INFO AVAILABLE 08/25/2022 PCP - General Physician Director Corporate Compliance 02/20/15 09/18/19 Bill Bowens PA-C [address] [address] PCP - Assigned PCP 01/14/15 12/28/18 Alex Rao MD [address] [address] PCP - General Internal Medicine 09/19/19 Bill Bowens PA-C [address] [address] Assigned PCP 01/14/15 12/03/19 Alex Rao MD 63[address] [place] [address] Assigned PCP 12/04/19 02/18/20 Beni Puga MD PhD 63[address] [facility] [place] [address] Assigned PCP 02/19/20 02/25/20 Alex Rao MD [address] [place] [address] Assigned PCP 02/26/20 03/20/21 Nate Leong MD [address] [place] [address] Assigned Surgical Provider 08/17/20 11/07/22 Sharri Hdez MD 420 [facility] 101 [place] [address] Assigned Endocrinology Provider 12/16/20 03/16/24 Alex Rao MD [address] [facility] [place] [address] Assigned PCP 03/21/21 Alex Rao MD [address] [facility] [place] [address] Referring Physician Internal Medicine 04/02/22 Russell Agosto MD 420 [facility] 486 [place] [address] Neurology 04/02/22 Magdalena Fry MD [address] [place] [address] Assigned Heart and Vascular Provider 04/26/22 02/15/24 Doris Chaney [facility] [address] [phone] Pharmacist Pharmacist 07/21/22 Doris Chaney [facility] [address] [phone] Assigned MTM Pharmacist 07/26/2202/14 [place] [address] [phone] Nephrology 05/14/23 documented as of this encounter
--- OUTSIDE RECORDS SUMMARY | 2025-04-22 10:10 | XMS_ITS | Encounter Summary ---
Author Organization [facility] Address [address] [place] [address]. [place] [address] Care Team Providers Care Gastrointestinal Technician Name Role Phone Alex Rao MD Primary Care Provider [phone] Alex Rao MD Unavailable [phone] Alex Rao MD Unavailable [phone] Russell Agosto MD Unavailable [phone] Doris Chaney [facility] Unavailable [phone] Canelo Kelley MD Unavailable Encounter Details Date Type Department Care Team (Late st Contact Info) Description 09/29/2024 [facility] Medical Advice [facility] [address] [address] Adele Gilliland Social History Tobacco Use Types Packs/Day Years [...] AM CDT Legal Sex Male 4:10 AM TUMBLING AND ROLLING SUPERVISOR Gender Identity Male 11/22/2018 10:40 AM TUMBLING AND ROLLING SUPERVISOR Sexual Orientation Straight 11/22/2018 10 :40 AM TUMBLING AND ROLLING SUPERVISOR Occupation Industry Job Start Date Job 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- [employer] Not on file Not on file Not on file documented as of this encounter Plan of Treatment Upcoming Encounters Date Type Department Care Team (Late st Contact Info) Description 06/30/2025 Ancillary Procedure [address] [phone] Magdalena Fry MD [address] [place] [address] [phone] 10/02/2025 Ancillary Procedure [address] [phone] Magdalena Fry MD [address] [place] [address] [phone] documented as of this encounter Visit Diagnoses Not on filedocumented in this encounter Additional Health Concerns Assessment Noted Time PHQ-9 Depression Total Score: 9 06/10/20 22 11:44 AM CDT documented as of this encounter Care Teams Gastrointestinal Technician Relationship Specialty Start Date End Date Alex Rao MD PCP - General Internal Medicine 09/19/19 Alex Rao MD [address] [place] [address] Assigned PCP 03/21/21 Alex Rao MD [address] [place] [address] Referring Physician Internal Medicine 04/02/22 Russell Agosto MD [address] [place] [address] 790735 Neurology 04/02/22 Doris Chaney, [facility] [address] [phone] Pharmacist Pharmacist 07/21/22 [place] [address] [place] [phone] Nephrology 05/14/23 documented as of this encounter
--- OUTSIDE RECORDS SUMMARY | 2025-04-22 10:10 | XMS_ITS | Encounter Summary ---
Author Organization [facility] Address [address] [place] [address] Care Team Providers Care Home Care Provider Name Role Phone Antonio Celeste MD Primary Care Provider U nealsharon Bill Bowens PA-C Primary Care Provider + Bill Bowens PA-C Unavailable [phone] Bill Bowens PA-C Unavailable [phone] Alex Rao MD Primary Care Provider [phone] Alex Rao MD Unavailable [phone] Beni Puga MD PhD Unavailable Alex Rao MD Unavailable [phone] Nate Leong MD Unavailable [phone] Sharri Hdez MD Unavailable [phone] Alex Rao MD Unavailable [phone] Alex Rao MD Unavailable [phone] Russell Agosto MD Unavailable [phone] Magdalena Fry MD Unavailable Doris Chaney [facility] Unavailable [phone] Doris Chaney [facility] Unavailable [phone] Canelo Kelley MD Unavailable Encounter Details Date Type Department Care Team (Late st Contact Info) Description 02/28/2013 MyC Medical Advice Initial Department [facility] Special[facility] [...] AM CDT Legal Sex Male 4:10 AM JELLY MAKER Gender Identity Male 11/22/2018 10:40 AM JELLY MAKER Sexual Orientation Straight 11/22/2018 10 :40 AM JELLY MAKER Occupation Industry Job Start Date Job 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- [employer] Not on file Not on file Not on file documented as of this encounter Plan of Treatment Upcoming Encounters Date Type Department Care Team (Late st Contact Info) Description 06/30/2025 Ancillary Procedure [address] [phone] Magdalena Fry MD [address] [place] [address] 1080[address] 10/02/2025 Ancillary Procedure [address] [address] Magdalena Fry MD [address] [place] [address] [phone] documented as of this encounter Visit Diagnoses Not on filedocumented in this encounter Care Teams Home Care Provider Relationship Specialty Start Date End Date Antonio Celeste MD NO INFO AVAILABLE 08/25/2022 PCP - General 03/24/03 02/19/15 Bill Bowens PA-C NO INFO AVAILABLE 08/25/2022 PCP - General Physician Toolsmith 02/20/15 09/18/19 Bill Bowens PA-C [address] [place] [address] PCP - Assigned PCP 01/14/15 12/28/18 Alex Rao MD [address] [place] [address] PCP - General Internal Medicine 09/19/19 Bill Bowens PA-C [address] [place] [address] Assigned PCP 01/14/15 12/03/19 Alex Rao MD [address] [facility] [place] [address]331 Assigned PCP 12/04/19 02/18/20 Beni Puga MD PhD [address] [facility] [place] [address] Assigned PCP 02/19/20 02/25/20 Alex Rao MD [address] [facility] [place] [address] Assigned PCP 02/26/20 03/20/21 Nate Leong MD [address] [facility] [place] 8[address]75 Assigned Surgical Provider 08/17/20 11/07/22 Sharri Hdez MD [address] [place] [address] 619995 Assigned Endocrinology Provider 12/16/20 03/16/24 Alex Rao MD [address] [facility] [place] [address]64401 Assigned PCP 03/21/21 Alex Rao MD [address] [place] [address] Referring Physician Internal Medicine 04/02/22 Russell Agosto MD [address] 289[address] Neurology 04/02/22 Magdalena Fry MD [address] 230295 Assigned Heart and Vascular Provider 04/26/22 02/15/24 Doris Chaney [facility] [address] [place] [phone] Pharmacist Pharmacist 07/21/22 [facility] [address] [phone] Assigned MTM Pharmacist 07/26/2202/14 [place] [address] [phone] Nephrology 05/14/23 documented as of this encounter
--- OUTSIDE RECORDS SUMMARY | 2025-04-22 10:10 | XMS_ITS | Encounter Summary ---
Author Organization [facility] Address [address] [place] [address] Care Team Providers Care Plate Hanger Name Role Phone Alex Rao MD Primary Care Provider [phone] Alex Rao MD Unavailable [phone] Nate Leong MD Unavailable [phone] Sharri Hdez MD Unavailable Alex Rao MD Unavailable [phone] Alex Rao MD Unavailable [phone] Russell Agosto MD Unavailable [phone] Magdalena Fry MD Unavailable Doris Chaney [facility] Unavailable Doris Chaney [facility] Unavailable Canelo Kelley MD Unavailable Encounter Details Date Type Department Care Team (Late st Contact Info) Description 12/11/2020 Maddi Wagner [address] [address] Sharri Hdez MD 420 [facility] 101 [place] [address] Social History Tobacco Use Types [...] AM CDT Legal Sex Male 4:10 AM FRONT END SOFTWARE DEVELOPER Gender Identity Male 11/22/2018 10:40 AM FRONT END SOFTWARE DEVELOPER Sexual Orientation Straight 11/22/2018 10 :40 AM FRONT END SOFTWARE DEVELOPER Occupation Industry Job Start Date Job 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 No / Unsure 12/10/2020 9:51 AM FRONT END SOFTWARE DEVELOPER documented as of this encounter Plan of Treatment Upcoming Encounters Date Type Department Care Team (Late st Contact Info) Description 06/30/2025 Ancillary Procedure [address] [address] Magdalena Fry MD [address] [place] [address] [phone] 10/02/2025 Ancillary Procedure [address] [phone] Magdalena Fry MD [address] [place] [address] [phone] documented as of this encounter Visit Diagnoses Not on filedocumented in this encounter Care Teams Plate Hanger Relationship Specialty Start Date End Date Alex Rao MD PCP - General Internal Medicine 09/19/19 Alex Rao MD [address]20 [place] [address] Assigned PCP 02/26/20 03/20/21 Nate Leong MD [address] 344145 Assigned Surgical Provider 08/17/20 11/07/22 Sharri Hdez MD [address] [address] Assigned Endocrinology Provider 12/16/20 03/16/24 Alex Rao MD [address] [place] [address] Assigned PCP 03/21/21 Alex Rao MD [address] [place] [address] Referring Physician Internal Medicine 04/02/22 Russell Agosto MD [address] 673785 Neurology 04/02/22 Magdalena Fry MD [address] [place] [address] 316745 Assigned Heart and Vascular Provider 04/26/22 02/15/24 Doris Chaney [facility] [address] [phone] Pharmacist Pharmacist 07/21/22 Doris Chaney [facility] [address] [phone] Assigned MTM Pharmacist 07/26/2202/14 [place] [address] [place] [place] [phone] Nephrology 05/14/23 documented as of this encounter
--- OUTSIDE RECORDS SUMMARY | 2025-04-22 10:10 | XMS_ITS | Encounter Summary ---
Author Organization [facility] Address [address] [place] [address] Care Team Providers Care Roentgenologist Name Role Phone Antonio Celeste MD Primary Care Provider U nealsharon Bill Bowens PA-C Primary Care Provider + Bill Bowens PA-C Unavailable [phone] Bill Bowens PA-C Unavailable [phone] Alex Rao MD Primary Care Provider [phone] Alex Rao MD Unavailable Beni Puga MD PhD Unavailable Alex Rao MD Unavailable [phone] Nate Leong MD Unavailable Sharri Hdez MD Unavailable [phone] Alex Rao MD Unavailable [phone] Alex Rao MD Unavailable [phone] Russell Agosto MD Unavailable [phone] Magdalena Fry MD Unavailable Doris Chaney [facility] Unavailable [phone] Doris Chaney 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- [employer] Not on file Not on file Not on file documented as of this encounter Plan of Treatment Upcoming Encounters Date Type Department Care Team (Late st Contact Info) Description 06/30/2025 Ancillary Procedure [address] [phone] Magdalena Fry MD [address] [place] [address] 10/02/2025 Ancillary Procedure [address] [address] Magdalena Fry MD [address] [place] [address] [phone] documented as of this encounter Visit Diagnoses Not on filedocumented in this encounter Care Teams Roentgenologist Relationship Specialty Start Date End Date Antonio Celeste MD NO INFO AVAILABLE 08/25/2022 PCP - General 03/24/03 02/19/15 Bill Bowens PA-C NO INFO AVAILABLE 08/25/2022 PCP - General Physician Milk Processing Worker 02/20/15 09/18/19 Bill Bowens PA-C [address] [address] PCP - Assigned PCP 01/14/15 12/28/18 Alex Rao MD [address] [address] PCP - General Internal Medicine 09/19/19 Bill Bowens PA-C [address] [address] Assigned PCP 01/14/15 12/03/19 Alex Rao MD 6320 [place] [address] Assigned PCP 12/04/19 02/18/20 Beni Puga MD PhD [address] [place] [address] Assigned PCP 02/19/20 02/25/20 Alex Rao MD [address] [place] [address] Assigned PCP 02/26/20 03/20/21 Nate Leong MD [address] [place] [address] Assigned Surgical Provider 08/17/20 11/07/22 Sharri Hdez MD 420 [facility] 101 [place] [address] Assigned Endocrinology Provider 12/16/20 03/16/24 Alex Rao MD 6320 [facility] [place] [address] Assigned PCP 03/21/21 Alex Rao MD 6320 [facility] [place] [address] Referring Physician Internal Medicine 04/02/22 Russell Agosto MD 420 [facility] 486 [place] [address] Neurology 04/02/22 Magdalena Fry MD [address] [address] Assigned Heart and Vascular Provider 04/26/22 02/15/24 Doris Chaney [facility] [address] [phone] Pharmacist Pharmacist 07/21/22 Doris Chaney [facility] [address] [place] [phone] Assigned MTM Pharmacist 07/26/2202/14 [place] [address] [place] [phone] Nephrology 05/14/23 documented as of this encounter
[2025-04-22 10:14] LABS: Basophils Absolute Auto 0.04 K/uL (0.00-0.30); Basophils Percent Auto 0.6 % (0.0-3.0); Eosinophils Absolute Auto 0.19 K/uL (0.00-0.50); Eosinophils Percent Auto 2.7 % (0.0-7.0); Hematocrit 31.9 % (37.0-53.0); Hemoglobin* 9.7 gm/dL (13.5-17.5); Immature Granulocytes Abs Auto 0.01 K/uL (0.00-0.30); Immature Granulocytes Pct Auto 0.1 %; Lymphocytes Absolute Auto 1.56 K/uL (0.90-2.90); Mean Corpuscular HGB Conc 30 gm/dL (32-36); Mean Corpuscular Hemoglobin 25 pg (26-34); Mean Corpuscular Volume 81 fL (80-100); Monocytes Percent Auto 7.3 % (0.0-11.0); Neutrophils Absolute Auto 4.78 K/uL (1.7-7.0); Neutrophils Percent Auto 67.3 % (42.0-72.0); Platelet Count* 277 K/uL (140-440); RDW Coefficient of Variation % 14.4 % (11.5-15.5); Red Blood Count 3.92 m/uL (4.30-5.90)
[2025-04-22 10:18] LABS: Slide Review Reflex No
[2025-04-22 10:22] LABS: Appearance Urine Cloudy (Clear); Bilirubin Urine Negative (Negative); Blood Urine Negative (Negative); Color Urine Yellow (Yellow); Glucose Urine 2+ (Negative); Ketones Urine Negative (Negative); Leukocyte Esterase Urine 1+ (Negative); Nitrite Urine Negative (Negative); Protein Urine Negative (Negative); Urobilinogen Urine 0.2 (0.2-1.0)
[2025-04-22 10:27] LABS: Chloride* 104 mmol/L (96-114)
[2025-04-22 10:28] LABS: Albumin* 4.1 g/dL (3.3-5.0); Potassium* 4.1 mmol/L (3.6-5.1)
[2025-04-22 10:30] VITALS: BP 117/58; PULSE 56; RESP 16; O2SAT 98
[2025-04-22 10:30] LABS: Blood Urea Nitrogen* 39 mg/dL (7-30); Creatinine* 1.8 mg/dL (0.5-1.5); Est. Creatinine Clearance* 38.35; Estimated Glomerular Filt Rate 39 ml/min
[2025-04-22 10:31] LABS: Alanine Aminotransferase* 17 U/L (4-50); Alkaline Phosphatase* 82 U/L (40-150); Anion Gap 9 mEq/L (7-15); Aspartate Amino Transferase* 20 U/L (12-35); Bilirubin Total* 0.3 mg/dL (0.1-1.5); Calcium* 9.5 mg/dL (8.4-10.6); Carbon Dioxide* 24 mmol/L (20-32); Glucose* 121 mg/dL (60-115)
[2025-04-22 10:42] LABS: Bacteria Urine Moderate; Squamous Epithelial Cell Urine Few (None-Few); WBC Urine >100 (0-5)
[2025-04-22 10:44] LABS: Troponin I* < 0.01 ng/mL (0.01-0.04)
[2025-04-22 10:45] LABS: Sodium* 137 mmol/L (135-149)
[2025-04-22 11:31] LABS: D Dimer Quantitative* < 0.27 ug/ml (0.00-0.50)
[2025-04-22 11:48] VITALS: BP 115/58
== END 2025-04-22 11:49 | disposition home or self-care (01) ==
PROVIDERS: Emergency Provider Internal Medicine; PCP Family Medicine
DX: R55 Syncope and collapse (principal)
CPT/HCPCS: 36415; 70450; 80053; 81001; 81003; 84484; 85025; 85379; 87086; 93005; 99283; 99284; 99285

== ENCOUNTER 2025-04-24 09:56 | Outpatient (CLI) | payer MEDICARE, SELFPAY | END 2025-04-24 09:57 | disposition home or self-care (01) | LOC: WOUND 09:56 | PROVIDERS: PCP Family Medicine; Visit Provider Physician Assistant | DX: I73.9 Peripheral vascular disease, unspecified (principal); L97.312 Non-pressure chronic ulcer of right ankle with fat layer exposed; E11.9 Type 2 diabetes mellitus without complications | CPT/HCPCS: 97597 ==

== ENCOUNTER 2025-05-01 10:02 | Outpatient (CLI) | payer MEDICARE, SELFPAY | END 2025-05-01 10:03 | disposition home or self-care (01) | LOC: WOUND 10:02 | PROVIDERS: PCP Family Medicine; Visit Provider Family Medicine | DX: I73.9 Peripheral vascular disease, unspecified (principal); L97.312 Non-pressure chronic ulcer of right ankle with fat layer exposed; E11.9 Type 2 diabetes mellitus without complications | CPT/HCPCS: 11042 ==

== ENCOUNTER 2025-05-15 10:01 | Outpatient (CLI) | payer MEDICARE, SELFPAY | END 2025-05-15 10:02 | disposition home or self-care (01) | LOC: WOUND 10:01 | PROVIDERS: PCP Family Medicine; Visit Provider Physician Assistant | DX: I73.9 Peripheral vascular disease, unspecified (principal); L97.812 Non-pressure chronic ulcer of other part of right lower leg with fat layer exposed; E11.9 Type 2 diabetes mellitus without complications | CPT/HCPCS: 97597 ==

== ENCOUNTER 2025-05-22 13:57 | Outpatient (CLI) | payer MEDICARE, SELFPAY | END 2025-05-22 13:58 | disposition home or self-care (01) | PROVIDERS: PCP Family Medicine; Visit Provider Physician Assistant Surgical | DX: I73.9 Peripheral vascular disease, unspecified (principal); L97.812 Non-pressure chronic ulcer of other part of right lower leg with fat layer exposed; E11.9 Type 2 diabetes mellitus without complications | CPT/HCPCS: 11042 ==

== ENCOUNTER 2025-05-30 13:00 | Outpatient (CLI) | payer MEDICARE, SELFPAY | END 2025-05-30 13:01 | disposition home or self-care (01) | LOC: WOUND 13:00 | PROVIDERS: PCP Family Medicine; Visit Provider Nurse Practitioner Family | DX: I73.9 Peripheral vascular disease, unspecified (principal); L97.311 Non-pressure chronic ulcer of right ankle limited to breakdown of skin; E11.9 Type 2 diabetes mellitus without complications | CPT/HCPCS: G0463 ==

== ENCOUNTER 2025-06-05 10:46 | Outpatient (CLI) | payer MEDICARE, SELFPAY | END 2025-06-05 10:47 | disposition home or self-care (01) | LOC: WOUND 10:47 | PROVIDERS: PCP Family Medicine; Visit Provider Family Medicine | DX: I73.9 Peripheral vascular disease, unspecified (principal); E11.9 Type 2 diabetes mellitus without complications; L97.311 Non-pressure chronic ulcer of right ankle limited to breakdown of skin | CPT/HCPCS: 97597 ==

== ENCOUNTER 2025-06-12 10:41 | Outpatient (CLI) | payer MEDICARE, SELFPAY | END 2025-06-12 10:42 | disposition home or self-care (01) | LOC: WOUND 10:41 | PROVIDERS: PCP Family Medicine; Visit Provider Physician Assistant | DX: E11.9 Type 2 diabetes mellitus without complications (principal); I73.9 Peripheral vascular disease, unspecified | CPT/HCPCS: G0463 ==

== ENCOUNTER 2025-06-19 08:36 | Outpatient (CLI) | payer MEDICARE, SELFPAY | END 2025-06-19 08:37 | disposition home or self-care (01) | LOC: NFLDREF 06-20 18:16 | PROVIDERS: PCP Family Medicine; Referring Provider Family Medicine; Visit Provider Family Medicine | DX: E11.22 Type 2 diabetes mellitus with diabetic chronic kidney disease (principal); I12.9 Hypertensive chronic kidney disease with stage 1 through stage 4 chronic kidney disease, or unspecified chronic kidney disease; N18.30 Chronic kidney disease, stage 3 unspecified; E78.00 Pure hypercholesterolemia, unspecified; N40.1 Benign prostatic hyperplasia with lower urinary tract symptoms; R35.1 Nocturia; R79.89 Other specified abnormal findings of blood chemistry; Z12.5 Encounter for screening for malignant neoplasm of prostate | CPT/HCPCS: 80053; 80061; 82043; 82570; 84270; 84402; 84403; G0103 ==

== ENCOUNTER 2025-06-28 08:16 | Outpatient (CLI) | payer MEDICARE, SELFPAY ==
--- NOTE | 2025-06-28 08:15 | CRLHL7_ITS ---
For Patients: As a result of the Cures Act, medical imaging exams and procedure reports are released immediately into your electronic medical record. You may view this report before your referring provider. If you have questions, please contact your health care provider. Examination: US abdominal aorta Indication: Abdominal aortic aneurysm screening. Technique: Barrera scale and color Doppler images of the aorta and common iliac arteries are obtained. Comparison: None Findings: Proximal aorta: 2.9 x 2.9 cm Mid aorta: 2.4 x 2.4 cm Distal aorta: 1.8 x 1.9 cm Right common iliac artery: 1.4 x 1.4 cm Left common iliac artery: 1.2 x 1.3 cm Impression: No abdominal aortic aneurysm. Dictated by Orion Arceo MD @ 06/28/2025 8:48:55 AM (Electronically Signed)
== END 2025-06-28 08:17 | disposition home or self-care (01) ==
LOC: US 08:17
PROVIDERS: PCP Family Medicine; Visit Provider Family Medicine
DX: Z13.6 Encounter for screening for cardiovascular disorders (principal)
CPT/HCPCS: 76706

== ENCOUNTER 2025-08-30 11:04 | Outpatient (CLI) | payer MEDICARE, SELFPAY | END 2025-08-30 11:05 | disposition home or self-care (01) | LOC: NFLDREF 09-04 02:38 | PROVIDERS: PCP Family Medicine; Referring Provider Family Medicine; Visit Provider Family Medicine | DX: R97.20 Elevated prostate specific antigen [PSA] (principal); Z12.5 Encounter for screening for malignant neoplasm of prostate | CPT/HCPCS: G0103 ==